=== PATIENT | male | born 1965 | race Caucasian/White ===

== ENCOUNTER 2021-03-15 12:33 | Inpatient (IN) | payer OTHER, SELFPAY ==
[2021-03-15] VITALS (16 sets, daily range): BP systolic 84–125; BP diastolic 67–84; PULSE 54–84; RESP 12–23; TEMP 36.3–36.7; O2SAT 93–100; BMI 17.4
--- NOTE | ~2021-03-15 | CT_ITS ---
EXAMINATION: CT brain wo con DATE: 03/15/2021 13:27 INDICATION: Altered mental status. TECHNIQUE: Computed tomography (CT) of the head was performed without intravenous contrast. The mA wa s adjusted according to patient size. Iterative reconstruction technique was employed. The dose-lengt h product was 681.00 mGy-cm. COMPARISON: None FINDINGS: There are scattered areas of low attenuation in the cerebral white matter. There is no intr acranial hemorrhage, acute infarction, or abnormal intracranial mass lesion. The ventricles are shreyas l in size. The paranasal sinuses are clear. The mastoid air cells are normal. There is a nonaggressiv e mixed lytic and sclerotic lesion in superolateral wall of left orbit, likely benign. IMPRESSION: 1. Mild nonspecific cerebral white matter disease, which likely represents chronic small vessel ische jaquelin disease. Reviewed, dictated and finalized at location B. IMPRESSION: 1. Mild nonspecific cerebral white matter disease, which likely represents chronometer tester janie small vessel ischemic disease.
--- NOTE | ~2021-03-15 | XR_ITS ---
EXAMINATION: XR chest 1V DATE: 03/15/2021 13:33 INDICATION: Hypotension. Recent falls. TECHNIQUE: frontal view of the chest was obtained. COMPARISON: None FINDINGS: The lungs are clear with no focal airspace opacities, pulmonary edema, pleural effusion or pneumothor ax. The cardiomediastinal silhouette is normal. Visualized bones and soft tissues are unremarkable. IMPRESSION: 1. No acute cardiopulmonary disease. Reviewed, dictated and finalized at location A.
--- NOTE | 2021-03-15 12:38 | ECG_ITS ---
Measurements Intervals [place] Rate: 64 P: 51 CA: 186 QRS: -65 QRSD: 91 T: 64 QT: 425 QTc: 441 Interpretive Statements SINUS RHYTHM RIGHT BUNDLE BRANCH BLOCK LEFT POSTERIOR FASCICULAR BLOCK BASELINE ARTIFACT- I, II, III, AVR, AVL, AVF, V1-V6 ABNORMAL ECG Electronically Signed On 03-15-2021 14:43:17 CDT by James Cox D.O.
--- NOTE | 2021-03-15 12:46 | PC.NURSE ---
pt given urinal to attempt u/a.
[2021-03-15 12:52] LABS: Basophils Absolute Auto 0.1 K/mm3 (0.0-0.1); Eosinophils Absolute Auto 0.1 K/mm3 (0-0.3); Eosinophils Percent Auto 1.6 % (0-4.4); Hematocrit 31.8 % (42.0-52.0); Hemoglobin 11.7 g/dL (14.0-18.0); Immature Granulocyte Absolute 0.08 K/mm3 (0.00-0.031); Immature Granulocyte Percent A 1.6 % (0-0.5); Lymphocytes Percent Auto 19.6 % (18.3-44.2); Mean Corpuscular HGB Conc 36.8 g/dl (32-36); Mean Corpuscular Hemoglobin 34.8 pg (26-34); Mean Corpuscular Volume 94.6 fl (80-100); Mean Platelet Volume 8.7 fl (7.4-10.4); Monocytes Absolute Auto 0.7 K/mm3 (0.1-0.6); Monocytes Percent Auto 12.9 % (2.6-8.5); Neutrophils Absolute Auto 3.2 K/mm3 (1.3-6.7); Neutrophils Percent Auto 62.3 % (45.5-73.1); Platelet Count Result 252 k/mm3 (150-375); Red Blood Count 3.36 M/mm3 (4.6-6.20); Red Cell Distribution Width 11.7 % (11.5-14.5); White Blood Count 5.1 K/mm3 (4.5-10.0)
[2021-03-15 13:03] LABS: Alanine Aminotransferase 45 U/L (4-50); Albumin Level 3.6 g/dL (3.5-5.1); Alkaline Phosphatase 114 U/L (38-126); Anion Gap 9 mmol/L (8-16); Aspartate Amino Transferase 104 U/L (17-59); Bilirubin,Total 0.4 mg/dL (0.2-1.3); Blood Urea Nitrogen 26 mg/dL (9-20); Calcium 8.9 mg/dL (8.4-10.2); Carbon Dioxide 26 mmol/L (22-30); Chloride 81 mmol/L (98-107); Estimated CRCL calculation 72 ml/min; Estimated Glomerular Filt Rate > 60; Glucose 95 mg/dL (75-110); Potassium 3.2 mmol/L (3.4-5.0); Sodium 116 mmol/L (137-145)
[2021-03-15 13:17] LABS: Add Urine Microscopic? NO; Appearance Urine Clear (Clear); Bilirubin Urine Negative (Negative); Blood Urine Negative (Negative); Color Urine Yellow (Yellow); Glucose Urine UA Negative (Negative); Ketones Urine Negative (Negative); Leukocyte Esterase Ur Negative LEU/UL (Negative); Nitrate Urine Negative (Negative); Protein Urine Negative (Negative); Specific Grav Ur 1.009 (1.001-1.035); Urobilinogen Urine Negative mg/dL (<2.0)
--- NOTE | 2021-03-15 13:17 | ED.WEAKNESS ---
HPI - Weakness General Chief complaint: Weakness Stated complaint: HYPOTENSION Time Seen by Provider: 03/15/21 13:03 Source: RN notes reviewed History of Present Illness HPI Narrative: Patient presents to emergency department from PCPs office via EMS for orthostatic hypotension. Patient states has been progressively weak over the past 1 months to the point that he is now having to use a cane to walk and brace himself down the moon he states that the only medication he takes is lisinopril with no recent change he denies any alcohol use and states he is a smoker he denies any fevers or chills vision changes chest pain shortness of breath abdominal pain nausea vomiting or any other symptoms Related Data Home Medications Medication Instructions Recorded Confirmed lisinopril-hydrochlorothiazide 1 tablet PO DAILY 03/15/21 03/15/21 Allergies Allergy/AdvReac Type Severity Reaction Status Date / Time ampicillin Allergy Unknown Unknown Verified 03/15/21 13:57 Review of Systems Review of Systems: Narrative: Gen.: Denies fevers or chills Eyes: Denies eye pain or visual change ENT: Denies congestion Respiratory: Denies shortness of breath or cough CV: Denies chest pain or palpitations GI: Denies abdominal pain nausea, emesis or diarrhea Musculoskeletal: Denies back pain or muscle pain Neuro: D see HPI Skin: Denies rash Except as documented, all other systems reviewed and negative [facility] Past Medical History Medical History (Updated 03/15/21 @ 14:44 by Delvis Hanley DO) Hypertension Social History Social History (Updated 03/15/21 @ 13:18 by Delvis Hanley DO) Smoking status: Current every day smoker Gender identity (if verbalized by the patient): Male Exam Narrative: Exam Narrative: APPEARANCE: No acute distress, nontoxic, resting in bed EYES: EOMI HEENT: Normocephalic, atraumatic, OMM RESPIRATORY: No respiratory distress Clear to auscultation bilaterally with no rhonchi wheezing or rales. CARDIOVASCULAR: Regular rate and rhythm without murmurs rubs or gallops. ABDOMINAL: Soft, nontender, nondistended, no rebound or guarding MUSCULOSKELETAl: Moves all extremities. No clubbing, cyanosis or edema. NEURO: Awake and alert x 4. Following commands, speech normal, no focal deficits SKIN:: Warm, dry. No rashes lesions or abrasions PSYCHIATRIC: Normal affect/mood, Course Course Emergency Course: Called and discussed with Dr. Bray presentation work-up agrees with consult at this time recommends patient start on 0.9 normal saline 100 mL an hour with the repeat sodium level at 4 PM : Discussed with NATHANIEL Loza for Dr. Kapoor presentation work-up agrees with admission at this time Discussed with patient and family results of workup and diagnosis. Discussed need for admission. Patient and family understand and agree to current treatment plan Vital Signs Vital signs: Vital Signs Temperature 97.8 F 03/15/21 12:32 Pulse Rate 67 03/15/21 12:32 Respiratory Rate 12 03/15/21 12:32 Pulse Oximetry 93 03/15/21 12:32 Temperature 97.8 F 03/15/21 12:32 Pulse Rate 59 L 03/15/21 15:02 Respiratory Rate 15 03/15/21 15:02 Blood Pressure 102/74 03/15/21 15:02 Pulse Oximetry 98 03/15/21 15:02 MDM - Weakness Lab Data Result diagrams: 03/15/21 12:45 03/15/21 12:45 Labs: Lab Results 03/15/21 03/15/21 03/15/21 Range/Units 12:45 12:45 12:45 WBC 5.1 (4.5-10.0) K/mm3 RBC 3.36 L (4.6-6.20) M/mm3 Hgb 11.7 L (14.0-18.0) g/dL Hct 31.8 L (42.0-52.0) % MCV 94.6 (80-100) fl MCH 34.8 H (26-34) pg MCHC 36.8 H (32-36) g/dl RDW 11.7 (11.5-14.5) % Plt Count 252 (150-375) k/mm3 MPV 8.7 (7.4-10.4) fl Immature Gran % (Auto) 1.6 H (0-0.5) % Neut % (Auto) 62.3 (45.5-73.1) % Lymph % (Auto) 19.6 (18.3-44.2) % Mcpherson % (Auto) 12.9 H (2.6-8.5) % Eos % (Auto) 1.6 (0-4.4) % Baso % (Auto) 2.0 H (0.2-1.2)
[2021-03-15] MEDS: SODIUM CHLORIDE 0.9% IV 1,000 ML 999 ML IV CONT (13:21)
--- NOTE | 2021-03-15 13:21 | PC.NURSE ---
Pt to CT scan via stretcher on tele monitor.
[2021-03-15] MEDS: POTASSIUM CHLORIDE 20 MEQ TABLET PO (14:06)
--- NOTE | 2021-03-15 14:14 | PC.NURSE ---
called dietary and ordered food tray for pt
[2021-03-15 14:46] LABS: Magnesium 2.5 mg/dL (1.6-2.3); Phosphorus 4.2 mg/dL (2.5-4.5)
--- NOTE | 2021-03-15 15:00 | PM.IMHP ---
H&P: HPI History of Present Illness Date/Time: 03/15/21 15:00 Chief Complaint: Weakness. Narrative: This is a 55-year-old male smoker with hypertension who presented to the emergency department earlier today via EMS from his primary care provider's office for further evaluation of weakness. He reports progressive weakness over the past month and has had problems with lightheadedness and dizziness, mainly with going from a sitting to standing position. His balance has also been poor and he has been using a cane to help steady himself with ambulating. More recently he has had several falls and syncopal episodes with numerous abrasions, contusions, and skin tears on his extremities and forehead. He was seen by Dr. Ortiz today and she sent him to the emergency department as he was reportedly orthostatic in the clinic. In the emergency department his blood pressure did drop from 100/84 to 84/68 upon standing and he had reproducible dizziness. He was also found to be profoundly hyponatremic with a sodium level of 116. He has taken hydrochlorothiazide for about a year and has not had any change in dosing. He drinks maybe 4 to 5 beers a week and reports drinking other liquids liquids in a typical amount. No history of thyroid disease or malignancy and he also denies chronic pain and chronic narcotic use. Appetite has been decreased but no nausea, vomiting, or diarrhea. Review of Systems Review of Systems: Narrative: Twelve systems were reviewed with pertinent positives and negatives as per HPI. He has lost 5 pounds unintentionally in the last month or so but goes on to say that he and his brother are both unemployed and they have been living on food stamps and the selection of food and quantities lacking so he believes that may be causing him to lose weight. No fever, chills, or sweats. He denies recent cold and flu symptoms. No focal weakness or paresthesias. Denies diplopia. No chest pain, pleuritic pain, or palpitations. Mild chronic smoker's cough. No significant shortness of breath. No nausea, vomiting, or diarrhea. Denies dysuria and change in urine output. Except as documented, all other systems were reviewed and are negative. [facility] Past Medical History Medical History (Updated 03/15/21 @ 20:18 by Denia Kate PA-C) Hypertension Tobacco dependence Surgical History Surgical History (Updated 03/15/21 @ 20:05 by Denia Kate PA-C) History of excision of testicular mass With benign histology. Family History Family History (Updated 03/15/21 @ 20:06 by Denia Kate PA-C) Father Chronic obstructive pulmonary disease Congestive heart failure Hypertension Mother Abdominal aortic aneurysm rupture Daughter Type 1 diabetes mellitus Social History Social History (Updated 03/15/21 @ 20:08 by Denia Kate PA-C) Social History: Surrogate decision maker: Bere Gisselletipkaty, sister. Code status: Full code. Smoking packs per day: 1 Smoking cigarettes per day: 20.0 Years smoked: 30 Smoking pack-years: 30.00 Smoking status: Current every day smoker Tobacco type: cigarettes Alcohol intake: current Drinks per week: 4 Alcohol use details: 3 to 4 beers per week. Substance use: never Substance use type: does not use Additional living arrangements comments: The patient lives in [place] with his brother. They are both currently unemployed and are living on food stamps. Additional occupation/education comments: Currently unemployed. Gender identity (if verbalized by the patient): Male Spiritual care concerns: No Meds Home Medications and Allergies Home Medications Medication Instructions Recorded Confirmed Type lisinopril-hydrochlorothiazide 1 tablet PO DAILY 03/15/21 03/15/21 History Allergies Allergy/AdvReac Type Severity Reaction Status Date / Time amoxicillin Allergy Rash Verified 03/15/21 15:47 Vital Signs V
--- NOTE | 2021-03-15 15:57 | ADMGEN ---
This patient, Simon Barraza, was admitted to IMU Room 204-01. Patient/family oriented to hospital policies and general routines including ID bracelet, bed and alarms, visiting hours, pain management, procedures, bathroom and other care routines, personal items, smoking policy, room service/diet, and visiting hours. Information on how to activate the Rapid Response Team has been discussed. Patient/Family are encouraged to report perceived risks to care and to ask questions if they do not understand what they are told or what they should do.
[2021-03-15 16:11] LABS: Anion Gap 6 mmol/L (8-16); Blood Urea Nitrogen 24 mg/dL (9-20); Calcium 8.5 mg/dL (8.4-10.2); Carbon Dioxide 27 mmol/L (22-30); Chloride 88 mmol/L (98-107); Estimated CRCL calculation 68 ml/min; Estimated Glomerular Filt Rate > 60; Glucose 91 mg/dL (75-110); Potassium 3.3 mmol/L (3.4-5.0); Sodium 121 mmol/L (137-145)
[2021-03-15] MEDS: SODIUM CHLORIDE 0.9% IV 1,000 ML 100 ML IV CONT (16:33)
--- NOTE | 2021-03-15 17:19 | PM.CNNEP ---
Assessment and Plan Assessment and plan (1) Acute hyponatremia: Code(s): E87.1 - Hypo-osmolality and hyponatremia Status: Acute Assessment and Plan: The patient has low sodium. He did have a mildly low sodium in December so this is not purely an acute issue. There seems to be at least a component of chronicity. He does not seem to have any symptoms of the low sodium. He does have the lightheadedness and weakness which could be a symptom but not enough of an issue to behoove us to use 3% saline. The cause of the low sodium is not exactly clear. He is on hydrochlorothiazide which may be playing a role. He also does not eat very much and is losing weight so could have an element of poor free water excretory capability because of poor solute intake. Hormonal issues such as hypothyroidism and adrenal insufficiency could cause low sodium. The latter could also cause him to lose weight and have orthostatic hypotension. Cancer can cause low sodium as well. He does smoke and has been losing weight. His chest x-ray and head CT do not show any tumor. He probably should get a cancer surveillance evaluation appropriate to his age at some point. ROLLER PICKER lesions can do this but is head CT is negative. Pulmonary lesions can do this as well but his chest x-ray is negative. Dehydration can also cause low sodium especially if the patient is drinking water. At this point he is eating and drinking ad anatoly. He is getting saline for volume resuscitation. His sodium level did correct from 116-121. Will check another sodium level in a few hours and see where this goes. Want to try to corrected by only 6 or so her day and not more than 8 per day. If this is excess water drinking causing the low sodium this is caused by the hydrochlorothiazide, then he might auto correct too quickly. He may need DDAVP. Because the sodium did correct this quickly I am going to change his saline to half-normal saline. (2) Acute hypokalemia: Code(s): E87.6 - Hypokalemia Status: Acute Assessment and Plan: The patient is getting potassium supplements. (3) Weakness: Code(s): R53.1 - Weakness Status: Acute Assessment and Plan: This may be purely be due to the low sodium or could be due to dehydration or something else like adrenal insufficiency or cancer. Evaluation is ongoing (4) Hypertension: Code(s): I10 - Essential (primary) hypertension Status: Acute Assessment and Plan: His blood pressure is doing well. He is off his antihypertensives for now. History of Present Illness Reason for Consult Consult date: 03/15/21 Chief Complaint Chief complaint: hyponatremia,weakness History of Present Illness Narrative: Simon is a very pleasant 55-year-old gentleman who has a history of hypertension. He says that he has had blood pressure problems for a few years. One year ago he was placed on lisinopril-HCT and has been on that ever since. His blood pressures have been pretty well controlled. Done and it showed that his sodium level was mildly low. The patient says for the last couple of weeks has been generally weak and at times dizzy. He says that he fell at least once. It was mostly because he was dizzy and lightheaded and lost his balance. He hit his right forehead at 1 point during 1 of these falls. Because of this progressive weakness, he decided to come to the emergency room. In the emergency room he was evaluated and found to have a very low sodium. He also had low blood pressure. He was given some IV fluids. Repeat sodium was performed after some IV fluids that his sodium improved from 116-121. This was over a period of about 3 hours. Currently the patient feels okay. He is lying in bed and ate some lunch. He says that he has lost a lot of weight over the last year. He thinks he has 2 thin and has been trying to gain weight. He does have a problem in that he is unemployed and lives with
[2021-03-15] MEDS: DEXTROSE 5%/0.45% SOD CHL 1,000 ML 100 ML IV CONT (18:03)
[2021-03-15 18:22] LABS: Sodium Urine Random 20 meq/L
[2021-03-15 18:25] LABS: Creatinine Urine 24.4 mg/dL
[2021-03-15 19:08] LABS: Sodium 121 mmol/L (137-145)
[2021-03-15] MEDS: THIAMINE HCL 200 MG/2 ML VIAL 100 MG IV PUSH (23:54)
[2021-03-16] VITALS (21 sets, daily range): BP systolic 90–127; BP diastolic 55–88; PULSE 52–90; RESP 12–19; TEMP 36.2–37.1; O2SAT 95–100; BMI 18.6
[2021-03-16 00:50] LABS: Sodium 122 mmol/L (137-145)
[2021-03-16] MEDS: DEXTROSE 5%/0.45% SOD CHL 1,000 ML 100 ML IV CONT ×2 (03:32→16:23)
[2021-03-16 05:24] LABS: Basophils Absolute Auto 0.1 K/mm3 (0.0-0.1); Basophils Percent Auto 1.4 % (0.2-1.2); Eosinophils Percent Auto 0.9 % (0-4.4); Hematocrit 32.6 % (42.0-52.0); Hemoglobin 11.8 g/dL (14.0-18.0); Immature Granulocyte Absolute 0.07 K/mm3 (0.00-0.031); Immature Granulocyte Percent A 1.7 % (0-0.5); Lymphocytes Absolute Auto 0.85 K/mm3 (0.9-3.2); Lymphocytes Percent Auto 20.1 % (18.3-44.2); Mean Corpuscular HGB Conc 36.2 g/dl (32-36); Mean Corpuscular Hemoglobin 35.3 pg (26-34); Mean Corpuscular Volume 97.6 fl (80-100); Mean Platelet Volume 9.1 fl (7.4-10.4); Monocytes Absolute Auto 0.6 K/mm3 (0.1-0.6); Monocytes Percent Auto 14.5 % (2.6-8.5); Neutrophils Absolute Auto 2.6 K/mm3 (1.3-6.7); Neutrophils Percent Auto 61.4 % (45.5-73.1); Platelet Count Result 290 k/mm3 (150-375); Red Blood Count 3.34 M/mm3 (4.6-6.20); Red Cell Distribution Width 11.9 % (11.5-14.5); White Blood Count 4.2 K/mm3 (4.5-10.0)
[2021-03-16 05:26] LABS: Alanine Aminotransferase 40 U/L (4-50); Albumin Level 3.2 g/dL (3.5-5.1); Alkaline Phosphatase 96 U/L (38-126); Anion Gap 3 mmol/L (8-16); Aspartate Amino Transferase 78 U/L (17-59); Bilirubin,Total 0.4 mg/dL (0.2-1.3); Blood Urea Nitrogen 17 mg/dL (9-20); Calcium 8.1 mg/dL (8.4-10.2); Carbon Dioxide 29 mmol/L (22-30); Chloride 91 mmol/L (98-107); Estimated CRCL calculation 86 ml/min; Estimated Glomerular Filt Rate > 60; Glucose 119 mg/dL (75-110); Magnesium 2.2 mg/dL (1.6-2.3); Potassium 3.3 mmol/L (3.4-5.0); Sodium 123 mmol/L (137-145)
--- NOTE | 2021-03-16 09:47 | PM.IMPN ---
Progress Note: A&P Assessment and Plan (1) Hypokalemia: Code(s): E87.6 - Hypokalemia Status: Acute (2) Generalized weakness: Code(s): R53.1 - Weakness Status: Acute (3) Normocytic anemia: Code(s): D64.9 - Anemia, unspecified Status: Acute (4) Orthostatic hypotension: Code(s): I95.1 - Orthostatic hypotension Status: Acute (5) Acute hyponatremia: Code(s): E87.1 - Hypo-osmolality and hyponatremia Status: Acute (6) Hypertension: Code(s): I10 - Essential (primary) hypertension Status: Acute Additional Plan This is a 55-year-old male smoker with hypertension who presented to the emergency department earlier today via EMS from his primary care provider's office for further evaluation of weakness. He reports progressive weakness over the past month and has had problems with lightheadedness and dizziness, mainly with going from a sitting to standing position. His balance has also been poor and he has been using a cane to help steady himself with ambulating. More recently he has had several falls and syncopal episodes with numerous abrasions, contusions, and skin tears on his extremities and forehead. He was seen by Dr. Ortiz and she sent him to the emergency department as he was reportedly orthostatic in the clinic. In the emergency department his blood pressure did drop from 100/84 to 84/68 upon standing and he had reproducible dizziness. He was also found to be profoundly hyponatremic with a sodium level of 116. He has taken hydrochlorothiazide for about a year and has not had any change in dosing. He drinks maybe 4 to 5 beers a week and reports drinking other liquids liquids in a typical amount. No history of thyroid disease or malignancy and he also denies chronic pain and chronic narcotic use. Appetite has been decreased but no nausea, vomiting, or diarrhea. # Severe hyponatremia: he does have hx of hyponatremia in the past with Na level at 130 noted in 2019. admission Na 116. placed on ivf. slowly improving. no hx of hypothyroidism or adrenal insufficiency. orthostasis positive suggestive of hypovolemic hyponatremia. placed on ivf. na level slowly improving. TSH normal. cortisol appropriate. FeNa 0.6% suggesting prerenal. Dr. Bray nephrology consulted. Appreciate his input. stop HCTZ. # Orthostatic hypotension: bp meds on hold. iv hydration. adrenal insuffi ruled out. thyroid function normal. likely from hypovolemia # Hypokalemia: replace K # Generalised weakness: likely from hyponatremia # Hypertension: Blood pressures were reviewed and he has been having some orthostasis thus will hold his antihypertensives. # Tobacco abuse: The patient continues to smoke cigarettes and is not entirely motivated at this time but we did discuss the importance of smoking cessation. Nicotine patch is available for him if needed. # Alcohol abuse: # DVT proph: SCDs Subjective Date/time seen: 03/16/21 09:47 feeling a lot better, no abdominal pain, nausea, vomtign. no dizzines but has not gotten up yet. no fever, chills. Review of Systems Review of Systems: Narrative: - CONSTITUTIONAL: Denies weight loss, fever and chills. - HEENT: Denies changes in vision and hearing - RESPIRATORY: Denies SOB and cough. - CV: Denies palpitations and CP. - GI: Denies abdominal pain, nausea, vomiting and diarrhea. - : Denies dysuria and urinary frequency. - MSK: Denies myalgia and joint pain. - SKIN: Denies rash and pruritus. - NEUROLOGICAL: Denies headache, reports syncope/near syncope - PSYCHIATRIC: Denies recent changes in mood. Denies anxiety and depression. All systems reviewed & are unremarkable except as noted in HPI and below Constitutional: Constitutional: Reports fatigue and Reports weakness Neurologic: Reports weakness Endocrine: Endocrine: Reports fatigue Exam Narrative: Exam Narrative: General: Thin, chronically ill-appearing ma
--- NOTE | 2021-03-16 10:24 | PM.PNNEP ---
Progress Note: A&P Assessment and Plan (1) Acute hyponatremia: Code(s): E87.1 - Hypo-osmolality and hyponatremia Status: Acute Assessment and Plan: The patient has low sodium. There is a chronic component but definitely now an acute component. Serum and urine osmolality are pending. TSH and cortisol are okay. S PE is pending most likely the low sodium is due to hydrochlorothiazide and possibly dehydration. He was getting normal saline but the correct [place] of the sodium was a little bit too fast so he was switched to half-normal saline and the correction is preceding well. He was been admitted yesterday at around noon so will check a sodium at noon to get the 24hour measure. Trying to correct the serum sodium by 8 or less per day because he was dehydrated and on hydrochlorothiazide and these are both improving I am not doing a fluid restriction less the Sodium correct too quickly. (2) Acute hypokalemia: Code(s): E87.6 - Hypokalemia Status: Acute Assessment and Plan: The patient is getting potassium supplements. He got a dose of potassium chloride today. (3) Weakness: Code(s): R53.1 - Weakness Status: Acute Assessment and Plan: Improving (4) Hypertension: Code(s): I10 - Essential (primary) hypertension Status: Acute Assessment and Plan: His blood pressure is doing well. He is off his antihypertensives for now. Subjective Date/time seen: 03/16/21 10:25 Interval history: Patient is feeling better. He got up to the bathroom and walked just about on his own and is not dizzy or lightheaded like he was before. Eating okay. Review of Systems Cardiovascular: Cardiovascular: Reports no additional cardiovascular complaints Respiratory: Respiratory: Reports no additional respiratory complaints Gastrointestinal: Gastrointestinal: Reports no additional gastrointestinal complaints Genitourinary: Genitourinary: Reports no additional male genitourinary complaints Exam Narrative: Exam Narrative: WDWN in NAD skin no rash head ncat lungs clear cor reg no rub abd BS+ nontender and soft ext no edema. Objective Data Vital Signs Vital Signs: Vital Signs - 24 hr 03/15/21 12:32 03/15/21 12:40 03/15/21 13:08 Temperature 36.6 C Pulse Rate 67 64 62 Pulse Rate [Bilateral Pedal (Dorsalis Pedis) Palpation] Respiratory Rate 12 Blood Pressure 96/67 L Pulse Oximetry 93 03/15/21 13:09 03/15/21 13:11 03/15/21 13:24 Temperature Pulse Rate 70 84 64 Pulse Rate [Bilateral Pedal (Dorsalis Pedis) Palpation] Respiratory Rate 15 Blood Pressure 100/84 84/68 L 100/84 Pulse Oximetry 98 03/15/21 14:08 03/15/21 14:58 03/15/21 15:02 Temperature Pulse Rate 79 59 L 59 L Pulse Rate [Bilateral Pedal (Dorsalis Pedis) Palpation] Respiratory Rate 23 H 15 15 Blood Pressure 110/82 102/74 102/74 Pulse Oximetry 94 98 98 03/15/21 15:09 03/15/21 15:50 03/15/21 16:00 Temperature 36.3 C L Pulse Rate 65 60 73 Pulse Rate [Bilateral Pedal (Dorsalis Pedis) Palpation] Respiratory Rate 14 18 Blood Pressure 103/73 125/71 Pulse Oximetry 99 100 03/15/21 18:00 03/15/21 20:00 03/15/21 22:00 Temperature 36.6 C Pulse Rate 54 L 57 L 58 L Pulse Rate [Bilateral Pedal (Dorsalis Pedis) Palpation] Respiratory Rate 17 Blood Pressure 90/68 L Pulse Oximetry 97 03/15/21 23:52 03/16/21 00:00 03/16/21 02:00 Temperature 36.7 C Pulse Rate 56 L 52 L 52 L Pulse Rate [Bilateral Pedal (Dorsalis Pedis) Palpation] 52 L Respiratory Rate 17 17 Blood Pressure 119/80 119/80 Pulse Oximetry 99 99 03/16/21 03:40 03/16/21 04:00 03/16/21 05:14 Temperature 36.9 C Pulse Rate 78 76 88 Pulse Rate [Bilateral Pedal (Dorsalis Pedis) Palpation] 76 Respiratory Rate 19 19 Blood Pressure 109/70 109/70 Pulse Oximetry 100 100 03/16/21 08:00 03/16/21 09:03 03/16/21 10:00 Temperature 36.2 C
[2021-03-16] MEDS: POTASSIUM CHLORIDE 20 MEQ TABLET 40 MEQ PO (11:16)
[2021-03-16 12:05] LABS: Sodium 121 mmol/L (137-145)
[2021-03-16 17:52] LABS: Sodium 119 mmol/L (137-145)
[2021-03-16] MEDS: SODIUM CHLORIDE 0.9% IV 1,000 ML 75 ML IV CONT (18:29)
[2021-03-16] MEDS: FUROSEMIDE 20 MG TABLET PO (20:17)
[2021-03-16] MEDS: CALCIUM CARBONATE (TUMS) 500 MG (200 MG ELEMENTAL) PO (20:24)
[2021-03-16 21:32] LABS: Sodium 119 mmol/L (137-145)
[2021-03-17] VITALS (17 sets, daily range): BP systolic 98–125; BP diastolic 60–86; PULSE 60–106; RESP 12–18; TEMP 36.8–37.1; O2SAT 96–100
[2021-03-17 05:04] LABS: Basophils Absolute Auto 0.1 K/mm3 (0.0-0.1); Basophils Percent Auto 1.4 % (0.2-1.2); Eosinophils Percent Auto 0.8 % (0-4.4); Hematocrit 27.1 % (42.0-52.0); Hemoglobin 9.7 g/dL (14.0-18.0); Immature Granulocyte Absolute 0.04 K/mm3 (0.00-0.031); Immature Granulocyte Percent A 0.8 % (0-0.5); Lymphocytes Absolute Auto 1.07 K/mm3 (0.9-3.2); Lymphocytes Percent Auto 22.2 % (18.3-44.2); Mean Corpuscular HGB Conc 35.8 g/dl (32-36); Mean Corpuscular Hemoglobin 35.1 pg (26-34); Mean Corpuscular Volume 98.2 fl (80-100); Monocytes Absolute Auto 0.7 K/mm3 (0.1-0.6); Monocytes Percent Auto 13.5 % (2.6-8.5); Neutrophils Percent Auto 61.3 % (45.5-73.1); Platelet Count Result 238 k/mm3 (150-375); Red Blood Count 2.76 M/mm3 (4.6-6.20); Red Cell Distribution Width 11.9 % (11.5-14.5); White Blood Count 4.8 K/mm3 (4.5-10.0)
[2021-03-17 05:27] LABS: Potassium 3.1 mmol/L (3.4-5.0)
[2021-03-17 05:31] LABS: Albumin Level 2.6 g/dL (3.5-5.1); Anion Gap 1 mmol/L (8-16); Blood Urea Nitrogen 10 mg/dL (9-20); Calcium 7.8 mg/dL (8.4-10.2); Carbon Dioxide 28 mmol/L (22-30); Chloride 92 mmol/L (98-107); Estimated CRCL calculation 124 ml/min; Estimated Glomerular Filt Rate > 60; Glucose 92 mg/dL (75-110); Phosphorus 1.9 mg/dL (2.5-4.5); Sodium 121 mmol/L (137-145)
[2021-03-17] MEDS: FUROSEMIDE 20 MG TABLET PO ×3 (06:08→21:50)
[2021-03-17] MEDS: POTASSIUM CHLORIDE 20 MEQ TABLET 40 MEQ PO (07:51)
[2021-03-17] MEDS: SODIUM CHLORIDE 0.9% IV 1,000 ML 75 ML IV CONT ×2 (07:51→21:35)
[2021-03-17] MEDS: NICOTINE (*PBKC) 21 MG PATCH 1 PATCH TRANSDERM (10:36)
--- NOTE | 2021-03-17 11:01 | PM.PNNEP ---
Progress Note: A&P Assessment and Plan (1) Acute hyponatremia: Code(s): E87.1 - Hypo-osmolality and hyponatremia Status: Acute Assessment and Plan: The patient has low sodium. There is a chronic component but definitely now an acute component. Serum and urine osmolality are pending. TSH and cortisol are okay. S PE is pending most likely the low sodium is due to hydrochlorothiazide and possibly dehydration. the patient's sodium dropped yesterday and so he probably does have a component of SIADH. Will repeat serum and urine osmolality today because his volume status is improved and he is off the hydrochlorothiazide. Since the sodium dropped I put him on a fluid restriction. He has been changed to saline and he is getting furosemide to help improve the sodium. Will check another sodium level at 2:00 p.m. and will have nursing call that result and will make adjustments accordingly. Discussed with Dr. Abraham (2) Acute hypokalemia: Code(s): E87.6 - Hypokalemia Status: Acute Assessment and Plan: The patient is getting potassium supplements. He got a dose of potassium chloride today again. His potassium level isn't really changing that much so it is not coming into play as far is changes in serum osmolality go. (3) Weakness: Code(s): R53.1 - Weakness Status: Acute Assessment and Plan: Improving (4) Hypertension: Code(s): I10 - Essential (primary) hypertension Status: Acute Assessment and Plan: His blood pressure is doing well. He is off his antihypertensives for now. Subjective Date/time seen: 03/17/21 11:01 Interval history: Patient is feeling better. able to stand up without dizziness. Eating okay. Review of Systems Cardiovascular: Cardiovascular: Reports no additional cardiovascular complaints Respiratory: Respiratory: Reports no additional respiratory complaints Gastrointestinal: Gastrointestinal: Reports no additional gastrointestinal complaints Genitourinary: Genitourinary: Reports no additional male genitourinary complaints Exam Narrative: Exam Narrative: WDWN in NAD skin no rash head ncat lungs clear Bilaterally cor reg no rub abd BS+ nontender and soft ext no edema or cyanosis. Objective Data Vital Signs Vital Signs: Vital Signs - 24 hr 03/16/21 11:51 03/16/21 12:00 03/16/21 13:57 Temperature 36.7 C Pulse Rate 65 82 Pulse Rate [Bilateral Pedal (Dorsalis Pedis) Palpation] 68 Respiratory Rate 12 Blood Pressure 110/79 Pulse Oximetry 95 03/16/21 16:00 03/16/21 18:00 03/16/21 20:00 Temperature 37.1 C 36.8 C Pulse Rate 75 80 85 Pulse Rate [Bilateral Pedal (Dorsalis Pedis) Palpation] 74 74 Respiratory Rate 14 16 Blood Pressure 90/63 L 116/72 Pulse Oximetry 98 98 03/16/21 20:32 03/16/21 20:33 03/16/21 22:00 Temperature Pulse Rate 71 Pulse Rate [Bilateral Pedal (Dorsalis Pedis) Palpation] Respiratory Rate Blood Pressure 113/71 93/59 L Pulse Oximetry 03/16/21 23:32 03/16/21 23:34 03/16/21 23:59 Temperature 36.6 C Pulse Rate 73 Pulse Rate [Bilateral Pedal (Dorsalis Pedis) Palpation] 78 Respiratory Rate 18 Blood Pressure 100/55 L Pulse Oximetry 98 98 03/17/21 00:00 03/17/21 03:21 03/17/21 03:25 Temperature Pulse Rate 94 Pulse Rate [Bilateral Pedal (Dorsalis Pedis) Palpation] 64 Respiratory Rate Blood Pressure Pulse Oximetry 98 03/17/21 04:00 03/17/21 07:55 03/17/21 08:00 Temperature 36.9 C 36.8 C Pulse Rate 66 96 Pulse Rate [Bilateral Pedal (Dorsalis Pedis) Palpation] 106 H Respiratory Rate 18 12 Blood Pressure 98/74 L 100/60 Pulse Oximetry 98 97 03/17/21 08:27 03/17/21 08:28 03/17/21 09:30 Temperature Pulse Rate Pulse Rate [Bilateral Pedal (Dorsalis Pedis) Palpation] Respiratory Rate Blood Pressure 113/72 125/86 Pulse Oximetry 96 03/17/21 09:58 T
[2021-03-17 14:10] LABS: Sodium 123 mmol/L (137-145)
[2021-03-17] MEDS: CALCIUM CARBONATE (TUMS) 500 MG (200 MG ELEMENTAL) PO ×2 (14:22→21:50)
--- NOTE | 2021-03-17 16:29 | PM.IMPN ---
Progress Note: A&P Assessment and Plan (1) Orthostatic hypotension: Code(s): I95.1 - Orthostatic hypotension Status: Acute (2) Normocytic anemia: Code(s): D64.9 - Anemia, unspecified Status: Acute (3) Generalized weakness: Code(s): R53.1 - Weakness Status: Acute (4) Hypokalemia: Code(s): E87.6 - Hypokalemia Status: Acute (5) Hyponatremia: Code(s): E87.1 - Hypo-osmolality and hyponatremia Status: Acute (6) Tobacco dependence: Code(s): F17.200 - Nicotine dependence, unspecified, uncomplicated Status: Acute (7) Acute hyponatremia: Code(s): E87.1 - Hypo-osmolality and hyponatremia Status: Acute (8) Acute hypokalemia: Code(s): E87.6 - Hypokalemia Status: Acute (9) Weakness: Code(s): R53.1 - Weakness Status: Acute (10) Hypertension: Code(s): I10 - Essential (primary) hypertension Status: Acute Additional Plan This is a 55-year-old male smoker with hypertension who presented to the emergency department earlier today via EMS from his primary care provider's office for further evaluation of weakness. He reports progressive weakness over the past month and has had problems with lightheadedness and dizziness, mainly with going from a sitting to standing position. His balance has also been poor and he has been using a cane to help steady himself with ambulating. More recently he has had several falls and syncopal episodes with numerous abrasions, contusions, and skin tears on his extremities and forehead. He was seen by Dr. Ortiz and she sent him to the emergency department as he was reportedly orthostatic in the clinic. In the emergency department his blood pressure did drop from 100/84 to 84/68 upon standing and he had reproducible dizziness. He was also found to be profoundly hyponatremic with a sodium level of 116. He has taken hydrochlorothiazide for about a year and has not had any change in dosing. He drinks maybe 4 to 5 beers a week and reports drinking other liquids liquids in a typical amount. No history of thyroid disease or malignancy and he also denies chronic pain and chronic narcotic use. Appetite has been decreased but no nausea, vomiting, or diarrhea. # Severe hyponatremia: he does have hx of hyponatremia in the past with Na level at 130 noted in 2019. admission Na 116. placed on ivf. slowly improving. no hx of hypothyroidism or adrenal insufficiency. orthostasis positive suggestive of hypovolemic hyponatremia. placed on ivf. na level slowly improving. TSH normal. cortisol appropriate. FeNa 0.6% suggesting prerenal. Dr. Bray nephrology consulted. Appreciate his input. stop HCTZ. na level still low. adjusting fluids and getting lasix under direction of nephrology # Orthostatic hypotension: bp meds on hold. iv hydration. adrenal insuffi ruled out. thyroid function normal. likely from hypovolemia # Hypokalemia: replace K # Generalised weakness: likely from hyponatremia # Hypertension: Blood pressures were reviewed and he has been having some orthostasis thus will hold his antihypertensives. # Tobacco abuse: The patient continues to smoke cigarettes and is not entirely motivated at this time but we did discuss the importance of smoking cessation. Nicotine patch ordered. # Alcohol abuse: # DVT proph: SCDs Subjective Date/time seen: 03/17/21 16:29 no overnight events, he got a dose of lasix as his na level dropped, switched to normal saline. no fever, chills, sob, cehst pain. Review of Systems Review of Systems: Narrative: - CONSTITUTIONAL: Denies weight loss, fever and chills. - HEENT: Denies changes in vision and hearing - RESPIRATORY: Denies SOB and cough. - CV: Denies palpitations and CP. - GI: Denies abdominal pain, nausea, vomiting and diarrhea. - : Denies dysuria and urinary frequency. - MSK: Denies myalgia and joint pain. - SKIN: Denies rash and pr
[2021-03-17 21:13] LABS: Sodium 125 mmol/L (137-145)
[2021-03-17] MEDS: ACETAMINOPHEN 325 MG TABLET 650 MG PO (23:41)
[2021-03-18] VITALS (13 sets, daily range): BP systolic 106–127; BP diastolic 75–89; PULSE 54–81; RESP 12–21; TEMP 36.1–36.9; O2SAT 97–100
[2021-03-18] MEDS: ACETAMINOPHEN 325 MG TABLET 650 MG PO ×3 (04:09→19:35)
[2021-03-18 04:53] LABS: Basophils Absolute Auto 0.1 K/mm3 (0.0-0.1); Basophils Percent Auto 1.5 % (0.2-1.2); Eosinophils Absolute Auto 0.1 K/mm3 (0-0.3); Eosinophils Percent Auto 0.8 % (0-4.4); Hematocrit 26.9 % (42.0-52.0); Hemoglobin 9.6 g/dL (14.0-18.0); Immature Granulocyte Absolute 0.05 K/mm3 (0.00-0.031); Immature Granulocyte Percent A 0.8 % (0-0.5); Lymphocytes Absolute Auto 1.56 K/mm3 (0.9-3.2); Lymphocytes Percent Auto 25.5 % (18.3-44.2); Mean Corpuscular HGB Conc 35.7 g/dl (32-36); Mean Corpuscular Hemoglobin 34.5 pg (26-34); Mean Corpuscular Volume 96.8 fl (80-100); Mean Platelet Volume 8.8 fl (7.4-10.4); Monocytes Absolute Auto 0.8 K/mm3 (0.1-0.6); Monocytes Percent Auto 13.1 % (2.6-8.5); Neutrophils Absolute Auto 3.6 K/mm3 (1.3-6.7); Neutrophils Percent Auto 58.3 % (45.5-73.1); Platelet Count Result 280 k/mm3 (150-375); Red Blood Count 2.78 M/mm3 (4.6-6.20); Red Cell Distribution Width 11.8 % (11.5-14.5); White Blood Count 6.1 K/mm3 (4.5-10.0)
[2021-03-18 05:06] LABS: Albumin Level 2.8 g/dL (3.5-5.1); Anion Gap 1 mmol/L (8-16); Blood Urea Nitrogen 8 mg/dL (9-20); Carbon Dioxide 30 mmol/L (22-30); Chloride 94 mmol/L (98-107); Estimated CRCL calculation 109 ml/min; Estimated Glomerular Filt Rate > 60; Glucose 95 mg/dL (75-110); Phosphorus 2.1 mg/dL (2.5-4.5); Potassium 3.7 mmol/L (3.4-5.0); Sodium 125 mmol/L (137-145)
[2021-03-18] MEDS: FUROSEMIDE 20 MG TABLET PO ×3 (05:06→21:13)
[2021-03-18] MEDS: NICOTINE (*PBKC) 21 MG PATCH 1 PATCH TRANSDERM (07:50)
[2021-03-18] MEDS: CALCIUM CARBONATE (TUMS) 500 MG (200 MG ELEMENTAL) PO ×2 (07:51→19:35)
[2021-03-18] MEDS: SODIUM CHLORIDE 0.9% IV 1,000 ML 75 ML IV CONT (07:52)
--- NOTE | 2021-03-18 09:54 | PM.PNNEP ---
Progress Note: A&P Assessment and Plan (1) Acute hyponatremia: Code(s): E87.1 - Hypo-osmolality and hyponatremia Status: Acute Assessment and Plan: The patient has low sodium. There is a chronic component but definitely now an acute component. Serum and urine osmolality are pending. TSH and cortisol are okay. S PE is pending most likely the low sodium is due to hydrochlorothiazide and possibly dehydration. He may have a component of SIADH. Hold off on repeating the serum and urine osmolality because the 1st ones are pending and also because he was on furosemide. Patient's sodium is stable but low on his current regimen. Will change to salt tablets plus oral Lasix. He continues to be on a fluid restriction. Will check a sodium this afternoon (2) Acute hypokalemia: Code(s): E87.6 - Hypokalemia Status: Acute Assessment and Plan: Potassium was good today. (3) Weakness: Code(s): R53.1 - Weakness Status: Acute Assessment and Plan: Improving (4) Hypertension: Code(s): I10 - Essential (primary) hypertension Status: Acute Assessment and Plan: His blood pressure is doing well. He is off his antihypertensives for now. Subjective Date/time seen: 03/18/21 09:54 Interval history: Patient is feeling better. No dizziness with ambulation. Eating okay. Review of Systems Cardiovascular: Cardiovascular: Reports no additional cardiovascular complaints Respiratory: Respiratory: Reports no additional respiratory complaints Gastrointestinal: Gastrointestinal: Reports no additional gastrointestinal complaints Genitourinary: Genitourinary: Reports no additional male genitourinary complaints Exam Narrative: Exam Narrative: WDWN in NAD skin no rash or subcu nodules head ncat lungs clear Bilaterally cor reg no rub or gallop abd BS+ nontender and soft ext no edema or cyanosis. Objective Data Vital Signs Vital Signs: Vital Signs - 24 hr 03/17/21 09:58 03/17/21 12:00 03/17/21 14:05 Temperature 36.9 C Pulse Rate 60 76 81 Pulse Rate [Bilateral Pedal (Dorsalis Pedis) Palpation] 81 Respiratory Rate 12 Blood Pressure 117/73 Pulse Oximetry 100 03/17/21 16:00 03/17/21 17:55 03/17/21 19:58 Temperature 36.9 C 37.1 C Pulse Rate 74 81 70 Pulse Rate [Bilateral Pedal (Dorsalis Pedis) Palpation] 75 Respiratory Rate 12 12 Blood Pressure 118/80 114/68 Pulse Oximetry 99 98 03/17/21 20:00 03/17/21 22:00 03/18/21 00:00 Temperature 36.1 C L Pulse Rate 86 78 74 Pulse Rate [Bilateral Pedal (Dorsalis Pedis) Palpation] Respiratory Rate 16 Blood Pressure 98/75 L 126/88 Pulse Oximetry 99 03/18/21 02:00 03/18/21 04:00 03/18/21 06:00 Temperature 36.9 C Pulse Rate 66 66 58 L Pulse Rate [Bilateral Pedal (Dorsalis Pedis) Palpation] Respiratory Rate 12 Blood Pressure 123/81 Pulse Oximetry 99 03/18/21 08:00 Temperature 36.9 C Pulse Rate 67 Pulse Rate [Bilateral Pedal (Dorsalis Pedis) Palpation] 67 Respiratory Rate 12 Blood Pressure 127/89 Pulse Oximetry 99 Intake/Output Intake/Output: Intake & Output 03/15/21 03/16/21 03/17/21 03/18/21 23:59 23:59 23:59 23:59 Intake Total 1466.3 3190 2870 1630 Output Total 342 549 7429 500 Balance 691.3 2290 1770 1130 Meds/Results Medications: Active Medications Generic Name Dose Route Start Last Admin Trade Name Anatoliyq PRN Reason Stop Dose Admin Acetaminophen 650 mg 03/17/21 22:23 03/18/21 04:09 Acetaminophen 325 Mg Tablet PO 650 mg Q4H PRN Administration Mild Pain (1-3) or Fever Calcium Carbonate 200 mg 03/16/21 13:37 03/18/21 07:51 Calcium Carbonate (Tums) 500 Mg (200 Mg Elemental) PO 200 mg Q6H PRN Administration Indigestion Furosemide 20 mg 03/16/21 19:00 03/18/21 05:06 Furosemide 20 Mg Tablet PO 20 mg Q8HR NESSA Administration Nicotine 1 patch 03/17/21 09:25 03/18/21 07:50 Ni
[2021-03-18] MEDS: SODIUM CHLORIDE 1 GM TABLET PO ×2 (11:19→16:03)
--- NOTE | 2021-03-18 12:57 | PM.IMPN ---
Progress Note: A&P Additional Plan This is a 55-year-old male smoker with hypertension who presented to the emergency department earlier today via EMS from his primary care provider's office for further evaluation of weakness. He reports progressive weakness over the past month and has had problems with lightheadedness and dizziness, mainly with going from a sitting to standing position. His balance has also been poor and he has been using a cane to help steady himself with ambulating. More recently he has had several falls and syncopal episodes with numerous abrasions, contusions, and skin tears on his extremities and forehead. He was seen by Dr. Ortiz and she sent him to the emergency department as he was reportedly orthostatic in the clinic. In the emergency department his blood pressure did drop from 100/84 to 84/68 upon standing and he had reproducible dizziness. He was also found to be profoundly hyponatremic with a sodium level of 116. He has taken hydrochlorothiazide for about a year and has not had any change in dosing. He drinks maybe 4 to 5 beers a week and reports drinking other liquids liquids in a typical amount. No history of thyroid disease or malignancy and he also denies chronic pain and chronic narcotic use. Appetite has been decreased but no nausea, vomiting, or diarrhea. # Severe hyponatremia: he does have hx of hyponatremia in the past with Na level at 130 noted in 2019. admission Na 116. placed on ivf. slowly improving. no hx of hypothyroidism or adrenal insufficiency. orthostasis positive suggestive of hypovolemic hyponatremia. placed on ivf. na level slowly improving. TSH normal. cortisol appropriate. FeNa 0.6% suggesting prerenal. Dr. Bray nephrology consulted. Appreciate his input. stop HCTZ. na level still low. adjusting fluids and getting lasix under direction of nephrology na level has improved. will continue with further direction from nephrology. # Orthostatic hypotension: bp meds on hold. iv hydration. adrenal insuffi ruled out. thyroid function normal. likely from hypovolemia # Hypokalemia: replace K # Generalised weakness: likely from hyponatremia # Hypertension: Blood pressures were reviewed and he has been having some orthostasis thus will hold his antihypertensives. # Tobacco abuse: The patient continues to smoke cigarettes and is not entirely motivated at this time but we did discuss the importance of smoking cessation. Nicotine patch ordered. # Alcohol abuse # Anemia: no signs of blood loss. more anemic this time compared to last years lab. could be dilutional for the drop. will check iron profile, fobt and vitmain b12, folate level. reticulocyte count. peripheral smear [facility]. [facility] labs in am. # DVT proph: SCDs Subjective Date/time seen: 03/18/21 12:57 feeling better. no new compalints. ambulating well.n o nausea, vomiting, sob, chest pain. Review of Systems Review of Systems: Narrative: - CONSTITUTIONAL: Denies weight loss, fever and chills. - HEENT: Denies changes in vision and hearing - RESPIRATORY: Denies SOB and cough. - CV: Denies palpitations and CP. - GI: Denies abdominal pain, nausea, vomiting and diarrhea. - : Denies dysuria and urinary frequency. - MSK: Denies myalgia and joint pain. - SKIN: Denies rash and pruritus. - NEUROLOGICAL: Denies headache and syncope. - PSYCHIATRIC: Denies recent changes in mood. Denies anxiety and depression. All systems reviewed & are unremarkable except as noted in HPI and below Constitutional: Constitutional: Reports fatigue and Reports weakness Neurologic: Reports weakness Endocrine: Endocrine: Reports fatigue Exam Narrative: Exam Narrative: General: Thin, comfortable, not in no acute distress HEENT: Healing abrasion on the right forehead. Pupils reactive. Extraocular motions intact. Sclerae anicteric. Conjunctiva mildly injected. Oral mucosa is moist. Oropharynx clear. Neck: Supple. No JVD. Re
[2021-03-18 13:52] LABS: Immature Reticulocyte Fraction 6.4 % (3.0-15.9); Reticulocyte Hemoglobin Conten 35.7 pg (28.2-35.7); Reticulocytes Absolute 0.04 B/L (32.2-175.7)
[2021-03-18 14:31] LABS: Lactate Dehydrogenase 436 U/L (313-618)
[2021-03-18 15:28] LABS: Folic Acid 8.5 ng/mL (2.76->20)
--- NOTE | 2021-03-18 16:45 | PC.NURSE ---
Patient transferred to 257 via bed with medical status. Report given to Ajit LINDSAY, transferred at 1640
[2021-03-18 16:51] LABS: Iron 44 ug/dL (49-181)
[2021-03-18 17:01] LABS: Percent Iron Saturation 23 % (20-50)
[2021-03-18 17:37] LABS: Sodium 129 mmol/L (137-145)
[2021-03-18 21:25] LABS: IFOB Positive Control Positive; Immunochemical Fecal Occult Bl Negative (N)
[2021-03-19 02:37] LABS: Osmolality, Urine 158 mOsm/kg (50-1200)
[2021-03-19 05:30] LABS: Basophils Absolute Auto 0.1 K/mm3 (0.0-0.1); Basophils Percent Auto 1.9 % (0.2-1.2); Eosinophils Absolute Auto 0.1 K/mm3 (0-0.3); Eosinophils Percent Auto 1.7 % (0-4.4); Hematocrit 28.6 % (42.0-52.0); Hemoglobin 10.1 g/dL (14.0-18.0); Immature Granulocyte Absolute 0.04 K/mm3 (0.00-0.031); Immature Granulocyte Percent A 0.8 % (0-0.5); Lymphocytes Absolute Auto 1.54 K/mm3 (0.9-3.2); Lymphocytes Percent Auto 28.9 % (18.3-44.2); Mean Corpuscular HGB Conc 35.3 g/dl (32-36); Mean Corpuscular Hemoglobin 35.1 pg (26-34); Mean Corpuscular Volume 99.3 fl (80-100); Mean Platelet Volume 8.4 fl (7.4-10.4); Monocytes Absolute Auto 0.7 K/mm3 (0.1-0.6); Monocytes Percent Auto 13.5 % (2.6-8.5); Neutrophils Absolute Auto 2.8 K/mm3 (1.3-6.7); Neutrophils Percent Auto 53.2 % (45.5-73.1); Platelet Count Result 251 k/mm3 (150-375); Red Blood Count 2.88 M/mm3 (4.6-6.20); White Blood Count 5.3 K/mm3 (4.5-10.0)
[2021-03-19 05:51] LABS: Albumin Level 2.7 g/dL (3.5-5.1); Anion Gap 1 mmol/L (8-16); Blood Urea Nitrogen 8 mg/dL (9-20); Calcium 7.9 mg/dL (8.4-10.2); Carbon Dioxide 30 mmol/L (22-30); Chloride 98 mmol/L (98-107); Estimated CRCL calculation 129 ml/min; Estimated Glomerular Filt Rate > 60; Glucose 93 mg/dL (75-110); Phosphorus 2.5 mg/dL (2.5-4.5); Potassium 3.2 mmol/L (3.4-5.0); Sodium 129 mmol/L (137-145)
[2021-03-19 06:00] VITALS: BP 147/80; PULSE 61; RESP 21; TEMP 36.6; O2SAT 100
[2021-03-19] MEDS: FUROSEMIDE 20 MG TABLET PO (06:00)
[2021-03-19] MEDS: ACETAMINOPHEN 325 MG TABLET 650 MG PO (06:12)
[2021-03-19] MEDS: SODIUM CHLORIDE 1 GM TABLET PO (08:22)
[2021-03-19] MEDS: NICOTINE (*PBKC) 21 MG PATCH 1 PATCH TRANSDERM (08:22)
[2021-03-19] MEDS: POTASSIUM CHLORIDE 20 MEQ TABLET 40 MEQ PO (08:22)
--- NOTE | 2021-03-19 08:27 | PM.PNNEP ---
Progress Note: A&P Assessment and Plan (1) Acute hyponatremia: Code(s): E87.1 - Hypo-osmolality and hyponatremia Status: Acute Assessment and Plan: The patient has low sodium. There is a chronic component but definitely now an acute component. Serum and urine osmolality are pending. TSH and cortisol are okay. SPE is pending most likely the low sodium is due to hydrochlorothiazide and possibly dehydration. He may have a component of SIADH. Hold off on repeating the serum and urine osmolality because the 1st ones are pending and also because he was on furosemide. Sodium is up to 129 last night and today. I think this is okay for discharge if all others are okay. Patient should stay off hydrochlorothiazide for ever. Potassium was a little bit low. He can go home on some potassium supplements. He should continue to the current fluid restriction at home. He should stay off alcohol. He should call my office in the morning make an appointment. I will call in labs to [facility] for him to get done on Saturday or and I can see next week in the office. (2) Acute hypokalemia: Code(s): E87.6 - Hypokalemia Status: Acute Assessment and Plan: Potassium is low again. He received some potassium today. (3) Weakness: Code(s): R53.1 - Weakness Status: Acute Assessment and Plan: Improved (4) Hypertension: Code(s): I10 - Essential (primary) hypertension Status: Acute Assessment and Plan: His blood pressure is doing well. He is off his antihypertensives for now. I can restart his lisinopril in the office if his blood pressure rises. Subjective Date/time seen: 03/19/21 08:27 Interval history: Patient is feeling better. No dizziness with ambulation. Eager for discharge. Review of Systems Cardiovascular: Cardiovascular: Reports no additional cardiovascular complaints Respiratory: Respiratory: Reports no additional respiratory complaints Gastrointestinal: Gastrointestinal: Reports no additional gastrointestinal complaints Genitourinary: Genitourinary: Reports no additional male genitourinary complaints Exam Narrative: Exam Narrative: WDWN in NAD skin no rash or subcu nodules head ncat lungs clear to auscultation cor reg no rub or gallop abd BS+ nontender and soft ext no edema Objective Data Vital Signs Vital Signs: Vital Signs - 24 hr 03/18/21 10:00 03/18/21 12:00 03/18/21 14:00 Temperature 36.8 C Pulse Rate 69 78 61 Respiratory Rate 16 Blood Pressure 124/82 Pulse Oximetry 98 03/18/21 15:11 03/18/21 16:00 03/18/21 22:00 Temperature 36.6 C 36.7 C Pulse Rate 72 73 Respiratory Rate 16 21 H Blood Pressure 125/80 106/79 Pulse Oximetry 97 99 100 03/18/21 22:05 03/18/21 22:08 03/19/21 06:00 Temperature 36.6 C 36.7 C 36.6 C Pulse Rate 68 81 61 Respiratory Rate 21 H 20 21 H Blood Pressure 121/77 115/75 147/80 H Pulse Oximetry 100 98 100 Intake/Output Intake/Output: Intake & Output 03/16/21 03/17/21 03/18/21 03/19/21 23:59 23:59 23:59 23:59 Intake Total 3190 2870 1990 240 Output Total 900 1100 500 800 Balance 2290 1770 1490 -560 Meds/Results Medications: Active Medications Generic Name Dose Route Start Last Admin Trade Name Freq PRN Reason Stop Dose Admin Acetaminophen 650 mg 03/17/21 22:23 03/19/21 06:12 Acetaminophen 325 Mg Tablet PO 650 mg Q4H PRN Administration Mild Pain (1-3) or Fever Calcium Carbonate 200 mg 03/16/21 13:37 03/18/21 19:35 Calcium Carbonate (Tums) 500 Mg (200 Mg Elemental) PO 200 mg Q6H PRN Administration Indigestion Furosemide 20 mg 03/16/21 19:00 03/19/21 06:00 Furosemide 20 Mg Tablet PO 20 mg Q8HR NESSA Administration Nicotine 1 patch 03/17/21 09:25 03/19/21 08:22 Nicotine (*Pbkc) 21 Mg Patch TRANSDERM 1 patch QAM NESSA Administration Sodium Chloride 1 gm 03/18/21 12:00 03/19/21 08:22
[2021-03-19 09:30] VITALS: BP 108/74; PULSE 85; RESP 14; TEMP 36.6; O2SAT 100
[2021-03-19 09:35] VITALS: BP 99/73; PULSE 88
--- NOTE | 2021-03-19 10:04 | PM.DS ---
DS: Admitting Diagnosis Admitting Diagnosis Admitting Diagnosis: hyponatremia DS: Discharge Diagnosis Discharge Diagnosis (1) Orthostatic hypotension: Code(s): I95.1 - Orthostatic hypotension Status: Acute (2) Normocytic anemia: Code(s): D64.9 - Anemia, unspecified Status: Acute (3) Generalized weakness: Code(s): R53.1 - Weakness Status: Acute (4) Hypokalemia: Code(s): E87.6 - Hypokalemia Status: Acute (5) Hyponatremia: Code(s): E87.1 - Hypo-osmolality and hyponatremia Status: Acute (6) Tobacco dependence: Code(s): F17.200 - Nicotine dependence, unspecified, uncomplicated Status: Acute (7) Acute hyponatremia: Code(s): E87.1 - Hypo-osmolality and hyponatremia Status: Acute (8) Acute hypokalemia: Code(s): E87.6 - Hypokalemia Status: Acute (9) Hypertension: Code(s): I10 - Essential (primary) hypertension Status: Acute DS: Summary Hospital Course Hospital Course: This is a 55-year-old male smoker with hypertension who presented to the emergency department earlier today via EMS from his primary care provider's office for further evaluation of weakness. He reports progressive weakness over the past month and has had problems with lightheadedness and dizziness, mainly with going from a sitting to standing position. His balance has also been poor and he has been using a cane to help steady himself with ambulating. More recently he has had several falls and syncopal episodes with numerous abrasions, contusions, and skin tears on his extremities and forehead. He was seen by Dr. Ortiz and she sent him to the emergency department as he was reportedly orthostatic in the clinic. In the emergency department his blood pressure did drop from 100/84 to 84/68 upon standing and he had reproducible dizziness. He was also found to be profoundly hyponatremic with a sodium level of 116. He has taken hydrochlorothiazide for about a year and has not had any change in dosing. He drinks maybe 4 to 5 beers a week and reports drinking other liquids liquids in a typical amount. No history of thyroid disease or malignancy and he also denies chronic pain and chronic narcotic use. Appetite has been decreased but no nausea, vomiting, or diarrhea. # Severe hyponatremia: he does have hx of hyponatremia in the past with Na level at 130 noted in 2019. admission Na 116. placed on ivf. slowly improving. no hx of hypothyroidism or adrenal insufficiency. orthostasis positive suggestive of hypovolemic hyponatremia. placed on ivf. na level slowly improving. TSH normal. cortisol appropriate. FeNa 0.6% suggesting prerenal. Dr. Bray nephrology consulted. Appreciate his input. stop HCTZ. he subsequently was switched to salt tablets along with lasix. low k due to lasix was replaced and will be continued as op basis. na level has improved and back to normal at the time of discharge. he will follow up with him as op basis. # Orthostatic hypotension: bp meds on hold. iv hydration. adrenal insuffi ruled out. thyroid function normal. likely from hypovolemia. this resolved at the time of discahrge. # Hypokalemia: replace K. going home on k supplment along with lasix. recheck bmp this week and see nephrology in a week. # Generalised weakness: likely from hyponatremia # Hypertension: Blood pressures were reviewed and he has been having some orthostasis thus will hold his antihypertensives. stable on lasix. brandon stop his home regimen. # Tobacco abuse: The patient continues to smoke cigarettes and is not entirely motivated at this time but we did discuss the importance of smoking cessation. Nicotine patch ordered. # Alcohol abuse # Anemia: no signs of blood loss. more anemic this time compared to last years lab. could be dilutional for the drop. will check iron profile, fobt and vitmain b12, folate level. reticulocyte count. peripheral smear [facility]. [facility] lab
[2021-03-19 18:42] LABS: Albumin 3.2 g/dL (3.8-4.8); Alpha 1 Globulin 0.4 g/dL (0.2-0.3); Alpha 2 Globulin 0.6 g/dL (0.5-0.9); Beta 1 Globulin 0.4 g/dL (0.4-0.6); Gamma Globulin 0.8 g/dL (0.8-1.7); Protein, Total 5.6 g/dL (6.1-8.1)
== END 2021-03-19 11:40 | disposition home or self-care (01) | DRG 426 ==
LOC: ANHED 14:44 → ANHIMU 14:45 → ANH2MED 03-18 16:45
PROVIDERS: Internal Medicine Nephrology; Physician Assistant; Admitting Provider Hospitalist; Emergency Provider Emergency Medicine; PCP Family Medicine; Visit Provider Internal Medicine
DX: E87.1 Hypo-osmolality and hyponatremia (principal); E87.6 Hypokalemia; F17.200 Nicotine dependence, unspecified, uncomplicated; D64.9 Anemia, unspecified; I95.1 Orthostatic hypotension; E86.0 Dehydration; I10 Essential (primary) hypertension; F10.10 Alcohol abuse, uncomplicated
CPT/HCPCS: 36415; 70450; 71045; 80048; 80053; 80069; 81003; 82274; 82533; 82570; 82607; 82728; 82746; 83540; 83550; 83615; 83735; 83930; 83935; 84100; 84155; 84165; 84295; 84300; 84443; 85025; 85046; 93005; 96360; 96361; 96374; 97110; 97161; 97165; 97530; 97535; 99285; A9270; G0378; G0379; J3411; J7030

== ENCOUNTER 2021-04-28 11:57 | Emergency (ER) | payer OTHER, SELFPAY ==
[2021-04-28] VITALS (35 sets, daily range): BP systolic 110–133; BP diastolic 82–105; PULSE 72–135; RESP 11–32; TEMP 37.1; O2SAT 97–100
--- NOTE | ~2021-04-28 | CT_ITS ---
EXAMINATION: CT chest abdomen pelvis w con DATE: 04/28/2021 20:05 INDICATION: Wasting symptoms. Syndrome of inappropriate ADH. Search for occult cancer. TECHNIQUE: Computed tomography (CT) of the chest, abdomen, and pelvis was performed with 100 cc Omnip aque 350 intravenous contrast. Automated exposure control and iterative reconstruction technique were employed. Exam dose: 326.38 mGy-cm total exam DLP. COMPARISON: None FINDINGS: CHEST CT: Mild to moderate emphysematous changes of the lungs. No pulmonary infiltrate or consolidation or pulm onary mass lesion is evident. Normal heart size. Coronary artery calcification. No thoracic aortic aneurysm or dissection. No hilar or mediastinal mass lesion or lymphadenopathy. No CT evidence of pulmonary embolism. ABDOMEN/PELVIS CT: Cholelithiasis. Gallbladder wall thickening. No pericholecystic fat stranding or fluid. No bile duct or pancreatic duct dilatation. No hepatic, splenic, pancreatic, and adrenal or renal space-occupying mass lesion with the exception of probable 6 mm lower pole left renal cyst. No urinary tract obstruction or hydroureteronephrosis. The urinary bladder is unremarkable. Mild pros horn enlargement. Prostate calcifications. There is atherosclerotic calcification of the abdominal aorta but no abdominal aortic aneurysm. No intraperitoneal or retroperitoneal or pelvic mass lesion or adenopathy or ascites. Diverticulosis of the left and right colon; no CT evidence of diverticulitis. No bowel obstruction or intraperitoneal free air. Small fat-containing umbilical and left inguinal hernias. Included skeletal structures are unremarkable; no suspicious osteolytic or osteoblastic lesions IMPRESSION: Emphysema Coronary artery atherosclerosis Cholelithiasis Diverticulosis of left and right colon; no evidence of diverticulitis Reviewed, dictated and finalized at [facility]. Reviewed, dictated and finalized at location [facility].
--- NOTE | ~2021-04-28 | XR_ITS ---
EXAMINATION: XR chest 2V EXAM DATE: 04/28/2021 14:46 INDICATION: Shortness of breath, weakness. History COPD. TECHNIQUE: Frontal and lateral projections of the chest obtained and reviewed. Comparison is made to prior examination from 03/15/2021. FINDINGS: The lungs are clear. There are no pleural effusions. The cardiomediastinal silhouette is within normal limits. There is no pneumothorax suspected. The bones and soft tissues are unremarkab le. IMPRESSION: No acute cardiopulmonary findings. Reviewed, dictated and finalized at location [facility].
--- NOTE | 2021-04-28 12:07 | ECG_ITS ---
Measurements Intervals [place] Rate: 86 P: 51 WA: 126 QRS: -66 QRSD: 160 T: 61 QT: 412 QTc: 494 Interpretive Statements SINUS RHYTHM RIGHT BUNDLE BRANCH BLOCK LEFT POSTERIOR FASCICULAR BLOCK ABNORMAL ECG Electronically Signed On 04-28-2021 13:39:51 CDT by James Cox D.O.
[2021-04-28 12:21] LABS: Basophils Absolute Auto 0.1 K/mm3 (0.0-0.1); Basophils Percent Auto 0.9 % (0.2-1.2); Eosinophils Percent Auto 0.1 % (0-4.4); Hematocrit 28.3 % (42.0-52.0); Hemoglobin 10.1 g/dL (14.0-18.0); Immature Granulocyte Absolute 0.09 K/mm3 (0.00-0.031); Lymphocytes Percent Auto 11.8 % (18.3-44.2); Mean Corpuscular HGB Conc 35.7 g/dl (32-36); Mean Corpuscular Hemoglobin 34.4 pg (26-34); Mean Corpuscular Volume 96.3 fl (80-100); Mean Platelet Volume 8.2 fl (7.4-10.4); Monocytes Absolute Auto 0.6 K/mm3 (0.1-0.6); Monocytes Percent Auto 5.9 % (2.6-8.5); Neutrophils Absolute Auto 7.5 K/mm3 (1.3-6.7); Neutrophils Percent Auto 80.3 % (45.5-73.1); Platelet Count Result 308 k/mm3 (150-375); Red Blood Count 2.94 M/mm3 (4.6-6.20); White Blood Count 9.3 K/mm3 (4.5-10.0)
[2021-04-28 12:32] LABS: Alanine Aminotransferase 10 U/L (4-50); Albumin Level 2.7 g/dL (3.5-5.1); Alkaline Phosphatase 120 U/L (38-126); Anion Gap 7 mmol/L (8-16); Aspartate Amino Transferase 33 U/L (17-59); Bilirubin,Total 0.7 mg/dL (0.2-1.3); Blood Urea Nitrogen 6 mg/dL (9-20); Calcium 7.7 mg/dL (8.4-10.2); Carbon Dioxide 30 mmol/L (22-30); Chloride 92 mmol/L (98-107); Estimated CRCL calculation 107 ml/min; Estimated Glomerular Filt Rate > 60; Glucose 103 mg/dL (75-110); Potassium 2.6 mmol/L (3.4-5.0); Sodium 129 mmol/L (137-145)
[2021-04-28 12:41] LABS: Add Urine Microscopic? YES; Appearance Urine Clear (Clear); Bacteria Urine Trace /hpf; Bilirubin Urine Negative (Negative); Blood Urine Negative (Negative); Color Urine Yellow (Yellow); Glucose Urine UA Negative (Negative); Ketones Urine Negative (Negative); Leukocyte Esterase Ur Negative LEU/UL (Negative); Mucus Urine Rare /lpf; Nitrate Urine Negative (Negative); Protein Urine 1+ mg/dL (Negative); RBC Urine 0-2 /hpf (0-2); Squamous Epithelial Cell Urine Rare /hpf (Few); Urobilinogen Urine Negative mg/dL (<2.0); WBC Urine 0-3 /hpf
--- NOTE | 2021-04-28 12:50 | PC.NURSE ---
Added on a Cordelia COBURN. Talked to Sharla in lab at [phone]
[2021-04-28] MEDS: POTASSIUM CHLORIDE 20 MEQ PACKET (FOR LIQUID) 60 MEQ PO (12:53)
[2021-04-28 13:10] LABS: Potassium Urine Random 16.1 meq/L; Sodium Urine Random 49 meq/L
[2021-04-28 13:18] LABS: Magnesium 1.8 mg/dL (1.6-2.3); Phosphorus 3.7 mg/dL (2.5-4.5)
--- NOTE | 2021-04-28 14:20 | PC.NURSE ---
Orthostatics performed, pt demonstrates dizziness when standing. Pt states the act of standing up also makes him short of breath. Dr. Rosado made aware of orthopnea as well as dizziness.
--- NOTE | 2021-04-28 14:20 | ED.WEAKNESS ---
HPI - Weakness General Chief complaint: Weakness Stated complaint: weakness Time Seen by Provider: 04/28/21 12:18 Source: patient Mode of arrival: ambulatory Limitations: no limitations History of Present Illness HPI Narrative: 55-year-old male Patient was recently hospitalized here for generalized weakness, found to be hyponatremic, some adjustments were made to his medications, and he was to follow-up with nephrology and primary care He has not yet seen Dr. Bray but he apparently presented to the primary care office today and was weak and orthostatic so he was sent to the ER I tried calling to get particulars of his presentation there and what the ongoing plan of care for him was but his physician was already signed out to on-call for the weekend Essentially his current complaint is slowly progressive and increasingly profound generalized weakness especially weakness in the legs, dizziness when upright, and that he gets dyspneic with exertion He does not have a cough, does not have a fever, does not have chest pains, does not have edema Contrary to the triage note, the patient tells me that he actually is taking all of his medications However he is not restricting his fluids, and he is still enjoying about 3 beers 3 times a week Smokes 1 pack a day Looking over his medication list it appears he is taking generic prinzide even though the nephrology eyewear consultant expressly suggest that he should never take hydrochlorothiazide Related Data Home Medications Medication Instructions Recorded Confirmed lisinopril-hydrochlorothiazide tablet 04/28/21 04/28/21 Allergies Allergy/AdvReac Type Severity Reaction Status Date / Time amoxicillin Allergy Rash Verified 04/28/21 12:09 Review of Systems Review of Systems: All systems reviewed & are unremarkable except as noted in HPI and below Constitutional: Constitutional: Reports no additional constitutional complaints, Denies chills, Reports fatigue, Denies fever(s), Denies headache(s) and Reports weakness Eyes: Eyes: Reports no additional eye complaints and Denies change in vision ENT: Denies headache(s) and Denies sore throat Cardiovascular: Cardiovascular: Denies chest pain and Denies dyspnea Respiratory: Respiratory: Denies chest congestion, Denies cough, Reports dyspnea and Denies wheezing Gastrointestinal: Gastrointestinal: Denies abdominal pain, Denies diarrhea and Denies vomiting Genitourinary: Genitourinary: Denies dysuria and Denies urinary frequency Musculoskeletal: Musculoskeletal: Denies deformity, Denies arthralgias, Denies joint swelling, Denies muscle cramps and Denies numbness Integumentary/Breasts: Skin/Breast: Denies rash and Denies wounds Neurologic: Reports dizziness, Denies headache(s), Denies focal weakness, Denies numbness and Reports weakness Psychiatric: Psychiatric: Reports no additional psychiatric complaints Endocrine: Endocrine: Reports no additional endocrine complaints Hematologic/Lymphatic: Hematologic/Lymphatic: Reports no additional hematologic/lymphatic complaints Allergic/Immunologic: Allergic/Immunologic: Reports no additional allergic/immunologic complaints [facility] Past Medical History Medical History (Updated 04/28/21 @ 19:49 by Eljiah Rosado MD) Hypertension Tobacco dependence Surgical History Surgical History (Updated 03/15/21 @ 20:05 by Denia Kate PA-C) History of excision of testicular mass With benign histology. Family History Family History (Updated 03/15/21 @ 20:06 by Denia Kate PA-C) Father Chronic obstructive pulmonary disease Congestive heart failure Hypertension Mother Abdominal aortic aneurysm rupture Daughter Type 1 diabetes mellitus Social History Social History (Updated 03/15/21 @ 20:08 by Denia Kate PA-C) Social History: Surrogate decision maker: Bere Kalin, sister. Code status: Full code. Smoking packs per day: 1 Sm
--- NOTE | 2021-04-28 14:45 | PC.NURSE ---
Added on a trop 1 baseline and BNP. Spoke to Jarad in lab at [id number]
--- NOTE | 2021-04-28 15:13 | PC.NURSE ---
Called lab at 1514 to add on BNP per RN
[2021-04-28 15:29] LABS: NT Pro B Type Natriuretic Pept 1010 pg/mL (5-100); Troponin I < 0.012 ng/mL (0.000-0.034)
--- NOTE | 2021-04-28 15:36 | PC.NURSE ---
Called to add on Vit B12, retic, FE TIBC, Ferritin at 1536 per RN
[2021-04-28 16:01] LABS: Iron 108 ug/dL (49-181)
[2021-04-28 16:13] LABS: Percent Iron Saturation 64 % (20-50)
[2021-04-28 16:15] LABS: Immature Reticulocyte Fraction 24.8 % (3.0-15.9); Reticulocyte Hemoglobin Conten 38.4 pg (28.2-35.7); Reticulocyte Percent 4.62 % (0.7-4.3); Reticulocytes Absolute 0.14 B/L (32.2-175.7)
[2021-04-28] MEDS: POTASSIUM CHLORIDE 20 MEQ TABLET 40 MEQ PO (16:21)
--- NOTE | 2021-04-28 16:59 | PC.NURSE ---
Preparing to redraw BMP at 1800 to recheck KCL level.
[2021-04-28 17:13] LABS: Folic Acid 7.2 ng/mL (2.76->20)
--- NOTE | 2021-04-28 18:10 | PC.NURSE ---
Repeat KCL level being drawn. KCL rider almost completed.
[2021-04-28 18:27] LABS: Anion Gap 4 mmol/L (8-16); Blood Urea Nitrogen 7 mg/dL (9-20); Calcium 7.6 mg/dL (8.4-10.2); Carbon Dioxide 30 mmol/L (22-30); Chloride 94 mmol/L (98-107); Estimated CRCL calculation 107 ml/min; Estimated Glomerular Filt Rate > 60; Glucose 120 mg/dL (75-110); Sodium 128 mmol/L (137-145)
--- NOTE | 2021-04-28 19:06 | PC.NURSE ---
Report to ANGÉLICA Garza. Awaiting dispostion.
--- NOTE | 2021-04-28 19:32 | PC.NURSE ---
patient able to ambulate to the bathroom and back.
== END 2021-04-28 21:37 | disposition home or self-care (01) ==
PROVIDERS: General Practice; Emergency Provider Emergency Medicine; PCP Family Medicine
DX: R53.1 Weakness (principal); E87.6 Hypokalemia; E87.1 Hypo-osmolality and hyponatremia; D64.9 Anemia, unspecified; I10 Essential (primary) hypertension; F17.210 Nicotine dependence, cigarettes, uncomplicated; K57.90 Diverticulosis of intestine, part unspecified, without perforation or abscess without bleeding; K80.20 Calculus of gallbladder without cholecystitis without obstruction; I25.10 Atherosclerotic heart disease of native coronary artery without angina pectoris; J43.9 Emphysema, unspecified
CPT/HCPCS: 36415; 71046; 71260; 74177; 80048; 80053; 81001; 82607; 82728; 82746; 83540; 83550; 83735; 83880; 84100; 84133; 84300; 84484; 85025; 85046; 93005; 96365; 96366; 99284; A9270; J3480; J7060; Q9967

== ENCOUNTER 2021-07-16 17:16 | Inpatient (IN) | payer OTHER, SELFPAY ==
[2021-07-16] VITALS (18 sets, daily range): BP systolic 96–125; BP diastolic 73–96; PULSE 72–96; RESP 16–34; TEMP 36.1–36.6; O2SAT 97–100
--- NOTE | ~2021-07-16 | XR_ITS ---
EXAMINATION: XR chest 1V portable DATE: 07/16/2021 17:46 INDICATION: Shortness of breath. TECHNIQUE: A single frontal view of the chest was obtained on 2 radiographs. COMPARISON: Chest 2 views 04/28/2021, chest CT 04/28/2021 FINDINGS: The lungs are hyperexpanded, consistent with emphysema. No pleural effusion or pneumothorax . The heart size is normal. IMPRESSION: 1. Emphysema. Reviewed, dictated and finalized at location A. IMPRESSION: 1. Emphysema.
--- NOTE | ~2021-07-16 | CT_ITS ---
EXAMINATION: CT brain wo con DATE: 07/16/2021 18:31 INDICATION: Confusion. TECHNIQUE: Computed tomography (CT) of the head was performed without intravenous contrast. The mA wa s adjusted according to patient size. Iterative reconstruction technique was employed. The dose-lengt h product was 605.33 mGy-cm. COMPARISON: Head CT 03/15/2021 FINDINGS: There are small old infarcts in the cerebellum bilaterally. There are infarcts in the right occipital lobe and left parietal and occipital lobes. There are old lacunar infarcts in the bilatera l basal ganglia. There are scattered areas of low attenuation in the cerebral white matter, which is within normal limits for the patient's age. There is no intracranial hemorrhage or abnormal mass lesi on. The ventricles are normal in size. There is mild mucosal thickening in the ethmoid sinuses. The m astoid air cells are normal. The orbits are normal. IMPRESSION: 1. Infarcts in the right occipital lobe and left parietal and occipital lobes, likely acute. 2. 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 Reviewed, dictated and finalized at location A.
--- NOTE | ~2021-07-16 | CT_ITS ---
EXAMINATION: CTA brain carotid DATE: 07/16/2021 19:21 INDICATION: Cerebrovascular accident. TECHNIQUE: Computed tomographic angiography (CTA) of the head was performed with 100 mL Omnipaque-350 intravenous contrast. CTA of the neck was performed with intravenous contrast. Automated exposure co ntrol and iterative reconstruction technique were employed. The dose-length product was 1122.33 mGy-c m. Maximum intensity projection and volume rendered 3D-reconstructions were created by the technologi st on a separate workstation. COMPARISON: Head CT 07/16/2021. FINDINGS: HEAD CTA: There are small old infarcts in the cerebellum bilaterally. There are infarcts in the right occipital lobe and left parietal and occipital lobes. There are old lacunar infarcts in the bilatera l basal ganglia. There are scattered areas of low attenuation in the cerebral white matter, which is within normal limits for the patient's age. There is no intracranial hemorrhage or abnormal mass lesi on. The ventricles are normal in size. There is mild mucosal thickening in the paranasal sinuses. The mastoid air cells are normal. The orbits are normal. The vertebral arteries are codominant. There is no significant stenosis of basilar artery or the proximal posterior cerebral arteries. There is a de creased number of arteries within the infarct volumes. There is no significant stenosis of the intrac ranial internal carotid arteries or anterior or middle cerebral arteries. Anterior communicating matt ry is normal. There is no aneurysm. NECK CTA: There is mild emphysema. There are no pathologically enlarged lymph nodes. There is no sign ificant stenosis of the vertebral arteries. There is plaque in the proximal internal carotid arteries . There is 0% stenosis of the proximal right internal carotid artery relative to normal distal artery lumen diameter (NASCET criteria). There is 0% stenosis of the proximal left internal carotid artery relative to normal distal artery lumen diameter. There is severe cervical spondylosis. IMPRESSION: 1. Infarct in the right occipital lobe and left parietal occipital lobes, likely acute. 2. 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 3. No aneurysm or significant intracranial arterial stenosis. 4. 0% stenosis of the proximal internal carotid arteries relative to normal distal artery lumen diame ters (NASCET criteria). Reviewed, dictated and finalized at location A. IMPRESSION: 1. Infarct in the right occipital lobe and left parietal occipital lobes, likel y acute. 2. 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 3. No aneurysm or significant intracranial arterial stenosis. 4. 0% stenosis of the proximal internal carotid arteries relative to normal dis josé miguel artery lumen diameters (NASCET criteria).
--- NOTE | ~2021-07-16 | US_ITS ---
EXAMINATION: US venous doppler [facility] DATE: 07/17/2021 16:12 INDICATION: Shortness of breath TECHNIQUE: Carson scale images without and with compression and Doppler images of the bilateral lower e xtremity veins were obtained. COMPARISON: None FINDINGS: The right common femoral vein, profunda femoral vein, femoral vein, popliteal vein, peroneal trunk, p osterior tibial veins, and greater saphenous vein are patent. The left common femoral vein, profunda femoral vein, femoral vein, popliteal vein, peroneal trunk, po sterior tibial veins, and greater saphenous vein are patent. IMPRESSION: 1. Patent bilateral lower extremity veins. No evidence of deep venous thrombosis. Reviewed, dictated and finalized at location A. IMPRESSION: 1. Patent bilateral lower extremity veins. No evidence of deep venous thrombosi s.
--- NOTE | ~2021-07-16 | XR_ITS ---
EXAMINATION: XR barium swallow modified DATE: 07/19/2021 13:19 INDICATION: Dysphagia. TECHNIQUE: The patient was given barium-containing material of multiple consistencies to swallow by t he speech pathologist while I performed fluoroscopy. Fluoroscopy exposure time was 1.6 minutes. The n umber of fluoroscopy images saved to the PACS was 2. Dose-area product was 1.106 Gy-cm^2. FINDINGS: There is no laryngeal penetration or aspiration. IMPRESSION: 1. No laryngeal penetration or aspiration. 2. Please refer to the speech therapy report for recommendations. Reviewed, dictated and finalized at location A.
--- NOTE | ~2021-07-16 | CT_ITS ---
EXAMINATION: CT brain wo con EXAM DATE: 07/18/2021 01:13 INDICATION: Worsening neuro exam. TECHNIQUE: Spiral CT of the head was performed without contrast. Axial, coronal and sagittal images were reviewed. The dose-length product (DLP) for this examination was 605.33 mGy-cm. The exposure w as tailored according to patient size, and iterative reconstruction (ASIR) was used as additional dos e reduction technique. Comparison is made to prior examination from brain MRI examination from . FINDINGS: Redemonstration of small left parietal and moderate size left occipital lobe infarctions. T here is also small right occipital lobe infarction better seen than on prior CT, expected evolution. Brain MRI examination better demonstrated other small scattered small cerebellar and periventricular infarctions. There is mild microangiopathy and moderate cerebral atrophy. No hemorrhagic conversion, brain mass, obstructive hydrocephalus or extra-axial collections. IMPRESSION: Scattered bilateral cerebral, cerebellar infarctions, could indicate cardiac embolic sour ce. No hemorrhagic conversion. Reviewed, dictated and finalized at location A. IMPRESSION: Scattered bilateral cerebral, cerebellar infarctions, could indicat e cardiac embolic source. No hemorrhagic conversion.
--- NOTE | ~2021-07-16 | US_ITS ---
EXAMINATION: US abdomen limited EXAM DATE: 07/19/2021 07:56 INDICATION: Evaluation of the liver TECHNIQUE: Multiple grayscale and Doppler images of the abdomen right upper quadrant were obtained (b y a technologist who performed the scan) and subsequently reviewed. Correlation is made to CT abdomen 04/28/2021. FINDINGS: The pancreatic head and body are normal in appearance. The pancreatic tail is not visualized. The l iver has normal echogenicity and contour. In the left liver lobe anteriorly and inferiorly there is a focal hyperechoic region measuring 1.5 x 1.1 x 1.1 cm, appears to be near the falciform ligament. P robably focal region of hepatic steatosis. There is no evidence of intrahepatic biliary duct dilatio n. Portal venous flow was seen in the hepatopedal, normal direction and has normal Doppler waveform. No right-sided hydronephrosis. Common bile duct measures 2 mm, which is normal. The gallbladder wall is normal in thickness, with ex pected amount of distention. No sonographic evidence of pericholecystic fluid. There is cholelithia sis. Technologist performing exam reports patient did not demonstrate sonographic Vinson's sign. P lease note that this sign is less reliable in patients who have received pain medication. IMPRESSION: 1. Left liver lobe hyperechoic region most likely focal hepatic steatosis. 2. Cholelithiasis. Reviewed, dictated and finalized at location A.
--- NOTE | ~2021-07-16 | MR_ITS ---
EXAMINATION: MR brain/brain stem wo/w con DATE: 07/17/2021 10:42 INDICATION: Acute cerebrovascular accident. TECHNIQUE: Magnetic resonance imaging (MRI) of the brain and brainstem was performed without and with 10 mL MultiHance intravenous contrast. Sequences included sagittal and axial T1-weighted FSE, axial diffusion-weighted FS EPI, axial T2*-weighted GRE, axial T2-weighted FLAIR Propeller, and axial T2-we ighted Propeller. Postcontrast sequences included axial and coronal T1-weighted FSE. Apparent diffusi on coefficient (ADC) maps were created. COMPARISON: Head CT 07/16/2021 FINDINGS: There are scattered acute infarcts in the cerebellum, bilateral basal ganglia, and bilatera l frontal, parietal, and occipital lobes, worst in the occipital lobes and left parietal lobe. There are scattered areas of nonspecific increased T2-weighted signal intensity in the cerebral white matte r. There is no intracranial hemorrhage or abnormal mass lesion. The ventricles are normal in size. Th e orbits are normal. There is mild mucosal thickening in the paranasal sinuses. There are trace bilat eral mastoid effusions. IMPRESSION: 1. Acute infarcts involving the cerebellum, bilateral basal ganglia, and bilateral frontal, parietal, and occipital lobes. 2. Mild nonspecific cerebral white matter disease, which likely represents chronic small vessel ische jaquelin disease. Reviewed, dictated and finalized at location A. IMPRESSION: 1. Acute infarcts involving the cerebellum, bilateral basal ganglia, and bilate ral frontal, parietal, and occipital lobes. 2. Mild nonspecific cerebral white matter disease, which likely represents sales representative consultant janie small vessel ischemic disease.
--- NOTE | 2021-07-16 17:23 | ECG_ITS ---
Measurements Intervals Dresser Rate: 80 P: 105 CO: 147 QRS: 212 QRSD: 162 T: 100 QT: 413 QTc: 477 Interpretive Statements SINUS RHYTHM RIGHT AXIS DEVIATION RIGHT BUNDLE BRANCH BLOCK BASELINE ARTIFACT- I, II, III, AVR, AVL, AVF, V1-V6 ABNORMAL ECG Electronically Signed On 07-16-2021 20:14:46 CDT by James Cox D.O.
--- NOTE | 2021-07-16 17:27 | ED.AMS ---
HPI - Altered Mental Status General Chief Complaint: Altered Mental Status Stated Complaint: WEAKNESS,AMS Time Seen by Provider: 07/16/21 17:23 History of Present Illness HPI narrative: 56 yo male brought in by EMS for weakness and altered mental status. The patient is a very unreliable historian, but he reports that he has been too weak to get off the couch for a couple of days. He has not had anything to eat or drink over that time. He reports that he does not usually drink every day, but he drinks once a day. He endorses SOB, and chills. Per EMS when they were transporting him he became hypotensive and less responsive. Last known normal not available Related Data Home Medications Medication Instructions Recorded Confirmed lisinopril-hydrochlorothiazide tablet 04/28/21 04/28/21 Allergies Allergy/AdvReac Type Severity Reaction Status Date / Time amoxicillin Allergy Rash Verified 04/28/21 12:09 Review of Systems Review of Systems: ROS unobtainable: Yes unobtainable due to mental status Constitutional: Constitutional: Reports chills, Reports fatigue, Denies fever(s) and Reports weakness Eyes: Eyes: Reports no additional eye complaints ENT: Reports system reviewed and no additional complaints, except as documented Cardiovascular: Cardiovascular: Denies chest pain Respiratory: Respiratory: Reports cough and Reports dyspnea Gastrointestinal: Gastrointestinal: Denies abdominal pain Neurologic: Reports weakness PMFSH Past Medical History Medical History Hypertension Tobacco dependence Surgical History Surgical History History of excision of testicular mass With benign histology. Family History Family History Father Chronic obstructive pulmonary disease Congestive heart failure Hypertension Mother Abdominal aortic aneurysm rupture Daughter Type 1 diabetes mellitus Social History Social History Social History: Surrogate decision maker: Bere Kalin, sister. Code status: Full code. Smoking packs per day: 1 Smoking cigarettes per day: 20.0 Years smoked: 30 Smoking pack-years: 30.00 Smoking status: Current every day smoker Tobacco type: cigarettes Alcohol intake: current Drinks per week: 4 Alcohol use details: 3 to 4 beers per week. Substance use: never Substance use type: does not use Additional living arrangements comments: The patient lives in [place] with his brother. They are both currently unemployed and are living on food stamps. Additional occupation/education comments: Currently unemployed. Gender identity (if verbalized by the patient): Male Spiritual care concerns: No Exam Const: General: no acute distress, alert, confusion and ill appearing acutely and chronically Nutritional Appearance: cachectic Orientation/consciousness: oriented to person and oriented to place HENMT: Head: no contusions and no lacerations Mouth: Yes dry mucous membranes Eyes: Pupils: Equal, round and reactive pupils present Other: sunken Resp: Effort & Inspection: normal respiratory effort Auscultation: rhonchi and wheezes Cardio: Rate: regular rate Rhythm: regular rhythm GI: GI Palp: Yes Soft to palpation and No Tenderness to palpation present (GI) Skin: Other: Dusky Neuro: General: moves all extremities, no focal motor deficits and CN's II-XI intact bilaterally Speech: normal speech Extrem: Other: atrophic Course Vital Signs Vital signs: Vital Signs Temperature 36.1 C L 07/16/21 17:15 Pulse Rate 84 07/16/21 17:15 Respiratory Rate 16 07/16/21 17:15 Blood Pressure 111/96 H 07/16/21 17:15 Pulse Oximetry 97 07/16/21 17:15 Temperature 36.1 C L 07/16/21 17:15 Pulse Rate 77
[2021-07-16 18:40] LABS: Basophils Percent Auto 0.1 % (0.2-1.2); Hematocrit 28.7 % (42.0-52.0); Hemoglobin 9.6 g/dL (14.0-18.0); Immature Granulocyte Absolute 0.16 K/mm3 (0.00-0.031); Immature Granulocyte Percent A 1.8 % (0-0.5); Immature Platelet Fraction Pct 6.4 % (0.9-11.2); Lymphocytes Absolute Auto 0.85 K/mm3 (0.9-3.2); Lymphocytes Percent Auto 9.5 % (18.3-44.2); Mean Corpuscular HGB Conc 33.4 g/dl (32-36); Mean Corpuscular Hemoglobin 34.4 pg (26-34); Mean Corpuscular Volume 102.9 fl (80-100); Mean Platelet Volume 10.8 fl (7.4-10.4); Monocytes Absolute Auto 0.8 K/mm3 (0.1-0.6); Monocytes Percent Auto 8.9 % (2.6-8.5); Neutrophils Absolute Auto 7.1 K/mm3 (1.3-6.7); Neutrophils Percent Auto 79.7 % (45.5-73.1); Nucleated Red Blood Cells Absolute Auto 0.2 K/mm3 (0.0-0.012); Nucleated Red Blood Cells Perc 1.8 % (0.0-0.2); Platelet Count Result 81 k/mm3 (150-375); Red Blood Count 2.79 M/mm3 (4.6-6.20); Red Cell Distribution Width 13.7 % (11.5-14.5); White Blood Count 8.9 K/mm3 (4.5-10.0)
[2021-07-16] MEDS: SODIUM CHLORIDE 0.9% IV 1,000 ML 999 ML IV CONT (18:40)
[2021-07-16] MEDS: THIAMINE HCL 200 MG/2 ML VIAL 100 MG IV PUSH (18:41)
[2021-07-16 18:50] LABS: INR 0.9; Partial Thromboplastin Time 21.6 SECONDS (22.3-36.8); Prothrombin Time 11.7 Seconds (11.1-14.7)
[2021-07-16 18:54] LABS: Alanine Aminotransferase 31 U/L (4-50); Albumin Level 2.8 g/dL (3.5-5.1); Alkaline Phosphatase 95 U/L (38-126); Anion Gap 14 mmol/L (8-16); Aspartate Amino Transferase 30 U/L (17-59); Blood Urea Nitrogen 54 mg/dL (9-20); Carbon Dioxide 19 mmol/L (22-30); Chloride 101 mmol/L (98-107); Creatine Kinase 25 U/L (55-170); Estimated CRCL calculation 47 ml/min; Estimated Glomerular Filt Rate > 60; Glucose 107 mg/dL (65-110); Potassium 2.6 mmol/L (3.4-5.0); Sodium 134 mmol/L (137-145)
[2021-07-16 19:02] LABS: Lactic Acid Reflex 2.7 mmol/L (0.7-2.1)
[2021-07-16 19:07] LABS: Ammonia < 9 umol/L (9-30)
[2021-07-16 19:25] LABS: Add Urine Microscopic? YES; Appearance Urine Cloudy (Clear); Bacteria Urine Trace /hpf; Bilirubin Urine 1+ (Negative); Blood Urine 3+ (Negative); Color Urine Amber (Yellow); Glucose Urine UA Negative (Negative); Ketones Urine Trace mg/dL (Negative); Leukocyte Esterase Ur 3+ LEU/UL (Negative); Mucus Urine Rare /lpf; Nitrate Urine Negative (Negative); Protein Urine 1+ mg/dL (Negative); RBC Urine 21-50 /hpf (0-2); Specific Grav Ur 1.015 (1.001-1.035); Squamous Epithelial Cell Urine Few /hpf (Few); Transitional Epi Cells Urine Rare /hpf (None Seen); WBC Clumps Urine Present /HPF; WBC Urine >75 /hpf
[2021-07-16 19:35] LABS: Amphetamine Screen Urine Negative (Negative); Barbiturate Screen Urine Negative (Negative); Benzodiazepines Screen Urine Negative (Negative); Cannabinoid Screen Urine Negative (Negative); Cocaine Screen Urine Negative (Negative); Methadone Screen Urine Negative (Negative); Opiate Screen Urine Negative (Negative); Phencyclidine Screen Urine Negative (Negative)
--- NOTE | 2021-07-16 19:48 | PM.IMHP ---
H&P: HPI History of Present Illness Date/Time: 07/16/21 19:48 Chief Complaint: Generalized weakness Narrative: This is a 56-year-old male with past medical history significant for hypertension, tobacco dependence, alcohol dependence. Patient was brought to the emergency room due to generalized weakness unable to get up on his own. Most of the history has been obtained upon review of medical records and emergency room. Patient is unable to give any history he does not know where he is when asked he said [place] he can not tell if he is in the hospital in an emergency room department. According to medical records patient was covered in his feces and urine when EMS arrived and was very weak to get up on his own. Preliminary workup was significant for CT of the head with acute infarct and a urinalysis with significant wbc's present a BMP showed a potassium of 2.5 a hemoglobin of 9 hematocrit of 28 and an MCV of 102 a chest x-ray showed emphysema. Review of Systems Review of Systems: ROS unobtainable: Yes unobtainable due to medical condition (Suspect underlying dementia secondary to malnutrition and alcohol intake) [facility], [facility] Past Medical History Medical History Hypertension Tobacco dependence Surgical History Surgical History History of excision of testicular mass With benign histology. Family History Family History Father Chronic obstructive pulmonary disease Congestive heart failure Hypertension Mother Abdominal aortic aneurysm rupture Daughter Type 1 diabetes mellitus Social History Social History Social History: Surrogate decision maker: Bere Gagnon, sister. Code status: Full code. Smoking packs per day: 1 Smoking cigarettes per day: 20.0 Years smoked: 30 Smoking pack-years: 30.00 Smoking status: Current every day smoker Tobacco type: cigarettes Alcohol intake: current Drinks per week: 4 Alcohol use details: 3 to 4 beers per week. Substance use: never Substance use type: does not use Additional living arrangements comments: The patient lives in [place] with his brother. They are both currently unemployed and are living on food stamps. Additional occupation/education comments: Currently unemployed. Gender identity (if verbalized by the patient): Male Spiritual care concerns: No Meds Home Medications and Allergies Home Medications Medication Instructions Recorded Confirmed Type furosemide 20 mg PO Q8HR #90 tablet 03/19/21 Rx potassium chloride [K-Tab] 40 meq PO DAILY@0800 #30 tablet 03/19/21 Rx sodium chloride 1 g PO TIDWM #90 tablet 03/19/21 Rx lisinopril 10 mg PO DAILY #30 tablet 04/28/21 Rx lisinopril-hydrochlorothiazide tablet 04/28/21 04/28/21 History potassium chloride [K-Tab] 40 meq PO BID #90 tablet 04/28/21 Rx Allergies Allergy/AdvReac Type Severity Reaction Status Date / Time amoxicillin Allergy Rash Verified 04/28/21 12:09 Vital Signs Vital Signs - 24 hr 07/16/21 17:15 07/16/21 17:27 07/16/21 17:28 Temperature 97 F L Pulse Rate 84 Respiratory Rate 16 34 H 21 H Blood Pressure 111/96 H 104/92 H Pulse Oximetry 97 07/16/21 17:30 07/16/21 17:31 07/16/21 17:45 Temperature Pulse Rate 92 91 83 Respiratory Rate 19 19 22 H Blood Pressure Pulse Oximetry 07/16/21 18:00 07/16/21 18:21 07/16/21 18:32 Temperature Pulse Rate 92 96 Respiratory Rate 25 H 16 Blood Pressure Pulse Oximetry 100 98 H&P: Results Labs Labs: Short CBC 07/16/21 Range/Units 18:20 WBC 8.9 (4.5-10.0) K/mm3 Hgb 9.6 L (14.0-18.0) g/dL Hct 28.7 L (42.0-52.0) % Plt Count 81 L D (150-375) k/mm3 BMP 07/16/21 18:20 Sodium 134 L Pot
[2021-07-16] MEDS: ASPIRIN 81 MG CHEWABLE TABLET 324 MG PO (19:57)
[2021-07-16] MEDS: CLOPIDOGREL BISULFATE 300 MG TABLET PO (19:57)
[2021-07-16 21:50] LABS: Reflex Lactic Acid Yes or No Add Lactic
[2021-07-16 21:53] LABS: Magnesium 2.4 mg/dL (1.6-2.3)
[2021-07-16 22:02] LABS: Transferrin 116 mg/dL (206-381)
[2021-07-16] MEDS: ALBUTEROL SULFATE NEB 2.5 MG/0.5 ML INH 5 MG INHALATION (22:04)
[2021-07-16] MEDS: IPRATROPIUM BR 0.02% INH SOLN 0.5 MG/2.5 ML VIAL INHALATION (22:04)
[2021-07-16] MEDS: THIAMINE HCL INJ 100 MG, FOLIC ACID INJ 1 MG, MULTIVITAMINS-12 INJ VIAL 1 5 ML, MULTIVI... IV CONT (22:06)
--- NOTE | 2021-07-16 22:47 | PM.IMHP ---
H&P: HPI History of Present Illness Date/Time: 07/16/21 22:47 Chief Complaint: Generalized weakness Narrative: Narrative: This is a 56-year-old male with past medical history significant for hypertension, tobacco dependence, alcohol dependence. Patient was brought to the emergency room due to generalized weakness unable to get up on his own. Most of the history has been obtained upon review of medical records and emergency room. Patient is unable to give any history he does not know where he is when asked he said [place] he can not tell if he is in the hospital in an emergency room department. According to medical records patient was covered in his feces and urine when EMS arrived and was very weak to get up on his own. Preliminary workup was significant for CT of the head with acute infarct and a urinalysis with significant wbc's present a BMP showed a potassium of 2.5 a hemoglobin of 9 hematocrit of 28 and an MCV of 102 a chest x-ray showed emphysema. Review of Systems Review of Systems: ROS unobtainable: Yes unobtainable due to medical condition [facility] Past Medical History Medical History Hypertension Tobacco dependence Surgical History Surgical History History of excision of testicular mass With benign histology. Family History Family History Father Chronic obstructive pulmonary disease Congestive heart failure Hypertension Mother Abdominal aortic aneurysm rupture Daughter Type 1 diabetes mellitus Social History Social History Social History: Surrogate decision maker: Bere Rushjewelshoda, sister. Code status: Full code. Smoking packs per day: 1 Smoking cigarettes per day: 20.0 Years smoked: 30 Smoking pack-years: 30.00 Smoking status: Current every day smoker Tobacco type: cigarettes Alcohol intake: current Drinks per week: 4 Alcohol use details: 3 to 4 beers per week. Substance use: never Substance use type: does not use Additional living arrangements comments: The patient lives in [place] with his brother. They are both currently unemployed and are living on food stamps. Additional occupation/education comments: Currently unemployed. Gender identity (if verbalized by the patient): Male Spiritual care concerns: No Meds Home Medications and Allergies Home Medications Medication Instructions Recorded Confirmed Type furosemide 20 mg PO Q8HR #90 tablet 03/19/21 Rx potassium chloride [K-Tab] 40 meq PO DAILY@0800 #30 tablet 03/19/21 Rx lisinopril-hydrochlorothiazide tablet 04/28/21 04/28/21 History Allergies Allergy/AdvReac Type Severity Reaction Status Date / Time amoxicillin Allergy Rash Verified 04/28/21 12:09 Vital Signs Vital Signs - 24 hr 07/16/21 17:15 07/16/21 17:27 07/16/21 17:28 Temperature 97 F L Pulse Rate 84 Respiratory Rate 16 34 H 21 H Blood Pressure 111/96 H 104/92 H Pulse Oximetry 97 07/16/21 17:30 07/16/21 17:31 07/16/21 17:45 Temperature Pulse Rate 92 91 83 Respiratory Rate 19 19 22 H Blood Pressure Pulse Oximetry 07/16/21 18:00 07/16/21 18:21 07/16/21 18:32 Temperature Pulse Rate 92 96 Respiratory Rate 25 H 16 Blood Pressure Pulse Oximetry 100 98 07/16/21 18:45 07/16/21 18:46 07/16/21 19:00 Temperature Pulse Rate 90 91 75 Respiratory Rate 23 H Blood Pressure 107/89 Pulse Oximetry 100 100 100 07/16/21 19:01 07/16/21 19:44 07/16/21 19:45 Temperature Pulse Rate 85 79 77 Respiratory Rate 22 H 22 H Blood Pressure 125/96 H Pulse Oximetry 100 100 100 07/16/21 22:05 07/16/21 22:12 Temperature Pulse Rate 72 75 Respiratory Rate 18 18 Blood Pressure Pulse Oximetry Exam Narrat
[2021-07-17] VITALS (14 sets, daily range): BP systolic 96–120; BP diastolic 73–82; PULSE 70–145; RESP 16–22; TEMP 36.6–37.3; O2SAT 90–100; BMI 17.6
--- NOTE | 2021-07-17 | ECHO_ITS ---
Patient Info Name: Siomn Barraza Age: 56 years : 1965 Gender: Male Ht: 69 in Wt: 119 lbs BSA: 1.61 m2 HR: 85 bpm BP: 103 / 82 mmHg Heart Rhythm: Sinus Rhythm Technical Quality: Other, Fair Exam Date: 07/17/2021 12:47 PM Exam Location: [facility] Card Pulmonary Patient Status: Inpatient Admit Date: 07/16/2021 Staff Ordering Physician: Yoselin Xiong PA-C Attending Provider: Yoselin Xiong PA-C Referring Physician: Inga HERNANDEZ; Exam Type: CA echo doppler w bubble study Study Info Complete two-dimensional, color flow and Doppler transthoracic echocardiogram is performed with agitated saline. Contrast/Agitated Saline Contrast/Ag. Saline: Agitated Saline Amount: 20.00 ml Administered By: Whitney Nelson RN Existing IV Access: Yes Summary 1. Left ventricular chamber dimension is normal. 2. Left ventricular systolic function is normal, estimated at 65-70%. 3. There is no increased left ventricular wall thickness. 4. The left ventricular diastolic function is grade I diastolic dysfunction. 5. Intact interatrial septum visualized by color flow and agitated saline imaging. 6. There is mild tricuspid valve regurgitation. 7. Mild pulmonary hypertension, estimated pulmonary arterial systolic pressure is 37 mmHg. Left Ventricle Left ventricular chamber dimension is normal. Left ventricular systolic function is normal, estimated at 65-70%. There is no increased left ventricular wall thickness. The left ventricular diastolic function is grade I diastolic dysfunction. Right Ventricle Right ventricular chamber dimension is mildly enlarged. Right ventricular systolic function is reduced. Left Atria Left atrial chamber dimension is normal. Right Atria Right atrial chamber dimension is normal. Atrial Septum Intact interatrial septum visualized by color flow and agitated saline imaging. Aortic Valve The aortic valve is trileaflet. There is mild aortic valve sclerosis. There is no aortic valve stenosis. There is trace aortic valve regurgitation. Pulmonic Valve The pulmonic valve is normal. There is no pulmonic valve stenosis. There is trace pulmonic regurgitation. Mitral Valve The mitral valve has normal leaflets. There is no mitral valve stenosis. There is trace mitral valve regurgitation. Tricuspid Valve The tricuspid valve leaflets are normal. There is no significant tricuspid valve stenosis. There is mild tricuspid valve regurgitation. Mild pulmonary hypertension, estimated pulmonary arterial systolic pressure is 37 mmHg. Pericardium/Pleural The pericardium appears normal. There is no pericardial effusion. Inferior Vena Cava Normal inferior vena cava with <50% collapse upon inspiration consistent with elevated right atrial pressure, 10 mmHg. Aorta The aortic root size at the sinus of Valsalva is normal. The prox ascending aorta size is normal. Left Ventricular Outflow Tract Name Value Normal LVOT 2D LVOT Diameter 2.0 cm LVOT Doppler LVOT Peak Gradient 4 mmHg LVOT Mean Gradie
[2021-07-17 00:08] LABS: Iron 34 ug/dL (49-181)
[2021-07-17 00:17] LABS: Percent Iron Saturation 19 % (20-50)
[2021-07-17] MEDS: ALBUTEROL SULFATE NEB 2.5 MG/0.5 ML INH 5 MG INHALATION ×4 (02:48→21:02)
[2021-07-17] MEDS: IPRATROPIUM BR 0.02% INH SOLN 0.5 MG/2.5 ML VIAL INHALATION ×4 (02:48→21:02)
[2021-07-17] MEDS: ASPIRIN 81 MG CHEWABLE TABLET PO (09:30)
[2021-07-17] MEDS: PANTOPRAZOLE SODIUM IV 40 MG VIAL IV PUSH ×2 (09:31→19:58)
[2021-07-17] MEDS: THIAMINE HCL 200 MG/2 ML VIAL 100 MG IV PUSH (09:31)
[2021-07-17] MEDS: CLOPIDOGREL BISULFATE 75 MG TABLET PO (09:31)
--- NOTE | 2021-07-17 09:35 | WPDNEURCNPN ---
Assessment and Plan Additional Plan evaluation up until now include the CTA of the head which documented small old infarcts in cerebellum bilaterally in addition to the right occipital lobe and left parietal and occipital lobes infarct and bilateral lacunar infarct of the basal ganglia otherwise no aneurysm or intracranial arterial stenosis, CT of the head documented no epidural or subdural bleed chest x-ray with emphysema and routine blood studies with anemia with MCV of 102.9 platelet count of 81 and urine culture pending so as the blood culture. At this stage she will need the supportive care ruling out the infections physical therapy evaluation and further care accordingly Consult date: 07/17/21 Time Seen: 09:30 HPI: Simon Barraza is a 56 year old male has been admitted to the hospital for the complaints of generalized weakness in addition to the ongoing history of 1. Hypertension 2. Tobacco dependence 3. Alcohol dependence and 4. Previous hospitalization he was unable to give any specific account of his problem at the time of initial evaluation further information was obtained from the medical records he was obviously covered with feces and urine and was extremely weak initial CT scan of the head documented acute infarct with abnormal UA and low potassium on the BMP and with hemoglobin of only 9 on CBC, patient does have ongoing history of 30 smoking pack years current everyday smoker current are everyday alcohol intake almost 4 drinks per week, reportedly he is on furosemide lisinopril with hydrochlorothiazide and potassium supplement Review of Systems Review of Systems: All systems reviewed & are unremarkable except as noted in HPI and below PMFSH Past Medical History Medical History Hypertension Tobacco dependence Surgical History Surgical History History of excision of testicular mass With benign histology. Family History Family History Father Chronic obstructive pulmonary disease Congestive heart failure Hypertension Mother Abdominal aortic aneurysm rupture Daughter Type 1 diabetes mellitus Social History Social History Social History: Surrogate decision maker: Bere Gisselletipjewelshoda, sister. Code status: Full code. Smoking packs per day: 1 Smoking cigarettes per day: 20.0 Years smoked: 30 Smoking pack-years: 30.00 Smoking status: Current every day smoker Tobacco type: cigarettes Alcohol intake: current Drinks per week: 4 Alcohol use details: 3 to 4 beers per week. Substance use: never Substance use type: does not use Additional living arrangements comments: The patient lives in [place] with his brother. They are both currently unemployed and are living on food stamps. Additional occupation/education comments: Currently unemployed. Gender identity (if verbalized by the patient): Male Spiritual care concerns: No Meds Home Medications and Allergies Home Medications Medication Instructions Recorded Confirmed Type furosemide 20 mg PO Q8HR #90 tablet 03/19/21 07/16/21 Rx potassium chloride [K-Tab] 40 meq PO DAILY@0800 #30 tablet 03/19/21 07/16/21 Rx lisinopril-hydrochlorothiazide 1 tablet PO DAILY 04/28/21 07/16/21 History Allergies Allergy/AdvReac Type Severity Reaction Status Date / Time amoxicillin Allergy Rash Verified 04/28/21 12:09 Vital Signs Vital Signs - 24 hr 07/16/21 17:15 07/16/21 17:27 07/16/21 17:28 Temperature 36.1 C L Pulse Rate 84 Respiratory Rate 16 34 H 21 H Blood Pressure 111/96 H 104/92 H Pulse Oximetry 97 07/16/21 17:30 07/16/21 17:31 07/16/21 17:45 Temperature Pulse Rate 92 91 83 Respiratory Rate 19 19 22 H Blood Pressure Pulse Oximetry 07/16/21 18:00 07/16/21 18:21 07/16
[2021-07-17 10:20] LABS: Basophils Percent Auto 0.2 % (0.2-1.2); Eosinophils Percent Auto 0.1 % (0-4.4); Hematocrit 28.1 % (42.0-52.0); Hemoglobin 9.3 g/dL (14.0-18.0); Immature Granulocyte Absolute 0.16 K/mm3 (0.00-0.031); Immature Granulocyte Percent A 1.2 % (0-0.5); Lymphocytes Absolute Auto 1.02 K/mm3 (0.9-3.2); Mean Corpuscular HGB Conc 33.1 g/dl (32-36); Mean Corpuscular Hemoglobin 34.7 pg (26-34); Mean Corpuscular Volume 104.9 fl (80-100); Mean Platelet Volume 10.6 fl (7.4-10.4); Monocytes Absolute Auto 1.3 K/mm3 (0.1-0.6); Monocytes Percent Auto 10.3 % (2.6-8.5); Neutrophils Absolute Auto 10.3 K/mm3 (1.3-6.7); Neutrophils Percent Auto 80.2 % (45.5-73.1); Nucleated Red Blood Cells Absolute Auto 0.1 K/mm3 (0.0-0.012); Nucleated Red Blood Cells Perc 1.1 % (0.0-0.2); Platelet Count Result 76 k/mm3 (150-375); Red Blood Count 2.68 M/mm3 (4.6-6.20); Red Cell Distribution Width 14.1 % (11.5-14.5); White Blood Count 12.8 K/mm3 (4.5-10.0)
[2021-07-17 10:21] LABS: Prothrombin Time 12.8 Seconds (11.1-14.7)
[2021-07-17 10:31] LABS: Alanine Aminotransferase 26 U/L (4-50); Albumin Level 2.4 g/dL (3.5-5.1); Alkaline Phosphatase 89 U/L (38-126); Anion Gap 7 mmol/L (8-16); Aspartate Amino Transferase 28 U/L (17-59); Bilirubin,Total 0.8 mg/dL (0.2-1.3); Blood Urea Nitrogen 53 mg/dL (9-20); Calcium 7.6 mg/dL (8.4-10.2); Carbon Dioxide 22 mmol/L (22-30); Chloride 104 mmol/L (98-107); Cholesterol 98 mg/dL (0-200); Estimated CRCL calculation 47 ml/min; Estimated Glomerular Filt Rate > 60; Glucose 118 mg/dL (65-110); HDL Direct 44 mg/dL; Potassium 3.1 mmol/L (3.4-5.0); Sodium 133 mmol/L (137-145); Triglycerides 97 mg/dL (<150)
[2021-07-17 10:32] LABS: Lactic Acid Reflex 2.3 mmol/L (0.7-2.1)
[2021-07-17 10:42] LABS: LDL Cholesterol Direct 31 mg/dL
--- NOTE | 2021-07-17 10:52 | PC.NURSE ---
patient returned from MRI
[2021-07-17] MEDS: POTASSIUM CHLORIDE 20 MEQ TABLET.ER 40 MEQ PO (11:00)
[2021-07-17 11:28] LABS: Magnesium 2.8 mg/dL (1.6-2.3); Phosphorus 3.6 mg/dL (2.5-4.5)
[2021-07-17 11:37] LABS: Folic Acid 17.5 ng/mL (2.76->20); Vitamin B12 > 1000.0 pg/mL (239-931)
[2021-07-17 12:30] LABS: Glucose Point of Care 132 mg/dl (65-105)
[2021-07-17] MEDS: LACTATED RINGERS 1,000 ML 75 ML IV CONT (12:58)
[2021-07-17 13:04] LABS: Reflex Lactic Acid Yes or No Add Lactic
[2021-07-17 13:50] LABS: Lactic Acid 3.1 mmol/L (0.7-2.1)
--- NOTE | 2021-07-17 14:28 | PM.IMPN ---
Progress Note: A&P Assessment and Plan (1) Acute ischemic stroke: Code(s): I63.9 - Cerebral infarction, unspecified Status: Acute Assessment and Plan: I was given permission by the patient to talk to his sister, Bere, about what is going on in the hospital. Severe alcoholism and has lived with his brother for the last 5 years after getting . The last year he has lost interested in everything, not eating much. He would still be active, talkative, and driving. He then began having issues with stepping up on the front porch step. Just recently it seemed like he gave, up and only laying on the couch. He couldn't even sit up on his own. day ate soup. Yesterday, he kept dropping his head and wouldn't feed himself. His sister fed him and it was like he was chewing his soup and confusion. He then developed SOB, and concerned and brought into the hospital. CT head on arrival showed infarcts in the right occipital lobe and left parietal and occipital lobes, likely acute. Old infarcts involving bilateral basal ganglia and cerebellum. MRI with and without contrast was obtained showing Acute infarcts involving the cerebellum, bilateral basal ganglia, and bilateral frontal, parietal, and occipital lobes. Mild nonspecific cerebral white matter disease, which likely represents chronic small vessel ischemic disease. In the emergency room the patient was started on baby aspirin and Plavix. I talked to the neurologist who evaluated him who recommends continuing aspirin 81 mg and Plavix 75 mg at this time, discontinue Plavix in 6 weeks and continue monotherapy at that time. CTA head and neck showing 0% stenosis of the proximal internal carotid arteries relative to normal distal artery lumen diameters (NASCET criteria). Echocardiogram with bubble study has been ordered and pending at this time. Will get Venous dopplers, the patient has been laying on the couch for weeks without getting up. Rule out DVT. * high suspicion the patient has paroxysmal atrial fibrillation or atrial flutter causing clots and conversion to normal sinus rhythm causing strokes. Telemetry at this time shows normal sinus rhythm 79 per, wide QRS complex, PVCs noted. No acute arrhythmia on tele at this time. PT OT and speech therapy have been consulted Continue monitoring neuro checks q.4 hours. Neurologist consult in place and appreciate their input. POA- Brother Jef. (2) Sepsis: Code(s): A41.9 - Sepsis, unspecified organism Status: Acute Assessment and Plan: Meets criteria for sepsis with elevated lactic acid level, elevated white blood cell count, tachycardia, and increased respiratory rate. Patient has been on IV ceftriaxone for UTI and abnormal Urinalysis and due to worsening WBC, Lactic acid and coughing during examination with strokes bilaterally I am concerned for aspiration. Placed NPO with a consult to Speech therapy to rule out aspiration. Antibiotics broadened to IV Zosyn today Pending blood culture, urine culture, sputum culture results Continue monitoring CBC diff daily Continue IV fluid hydration Continue monitoring make adjustments as needed. (3) UTI (urinary tract infection): Code(s): N39.0 - Urinary tract infection, site not specified Status: Acute (4) AMS (altered mental status): Code(s): R41.82 - Altered mental status, unspecified Status: Acute Assessment and Plan: Could be from UTI patient aspiration pneumonia versus acute strokes verses and alcoholism Seems to be slightly improved since arrival Continue antibiotics, pending urine culture, blood culture and sputum culture Continue monitoring. (5) Hypokalemia: Code(s): E87.6 - Hypokalemia Status: Acute Assessment and Plan: Most likely due to poor food intake Will repl
[2021-07-17] MEDS: FOLIC ACID 1 MG/0.2 ML INJ IV PUSH (14:57)
[2021-07-17] MEDS: POTASSIUM CHLORIDE 20 MEQ TABLET 40 MEQ PO (16:15)
--- NOTE | 2021-07-17 16:35 | PCSTNOTE ---
Please refer to the Bedside Swallow Evaluation in the EMR. Please note, silent aspiration cannot be ruled out at bedside.
[2021-07-17 16:44] LABS: D Dimer 2.15 ug/mL (<0.48)
[2021-07-17 18:06] LABS: Glucose Point of Care 132 mg/dl (65-105)
[2021-07-18] VITALS (15 sets, daily range): BP systolic 109–144; BP diastolic 64–99; PULSE 73–96; RESP 14–20; TEMP 36.3–37.2; O2SAT 90–100
[2021-07-18 01:58] LABS: Glucose Point of Care 103 mg/dl (65-105)
[2021-07-18] MEDS: IPRATROPIUM BR 0.02% INH SOLN 0.5 MG/2.5 ML VIAL INHALATION ×5 (02:30→20:44)
[2021-07-18] MEDS: ALBUTEROL SULFATE NEB 2.5 MG/0.5 ML INH 5 MG INHALATION ×4 (02:32→20:44)
[2021-07-18] MEDS: LACTATED RINGERS 1,000 ML 75 ML IV CONT (04:06)
[2021-07-18] MEDS: LORazepam INJ (*CRX) 2 MG/ML VIAL 1 MG IV PUSH (06:17)
[2021-07-18 06:23] LABS: Glucose Point of Care 120 mg/dl (65-105)
[2021-07-18 06:47] LABS: Basophils Percent Auto 0.2 % (0.2-1.2); Eosinophils Percent Auto 0.2 % (0-4.4); Hematocrit 24.5 % (42.0-52.0); Hemoglobin 7.7 g/dL (14.0-18.0); Immature Granulocyte Absolute 0.11 K/mm3 (0.00-0.031); Immature Granulocyte Percent A 1.2 % (0-0.5); Lymphocytes Absolute Auto 1.29 K/mm3 (0.9-3.2); Lymphocytes Percent Auto 14.2 % (18.3-44.2); Mean Corpuscular HGB Conc 31.4 g/dl (32-36); Mean Corpuscular Hemoglobin 34.1 pg (26-34); Mean Corpuscular Volume 108.4 fl (80-100); Mean Platelet Volume 11.7 fl (7.4-10.4); Monocytes Absolute Auto 1.2 K/mm3 (0.1-0.6); Monocytes Percent Auto 13.6 % (2.6-8.5); Neutrophils Absolute Auto 6.4 K/mm3 (1.3-6.7); Neutrophils Percent Auto 70.6 % (45.5-73.1); Nucleated Red Blood Cells Absolute Auto 0.1 K/mm3 (0.0-0.012); Nucleated Red Blood Cells Perc 0.7 % (0.0-0.2); Platelet Count Result 64 k/mm3 (150-375); Red Blood Count 2.26 M/mm3 (4.6-6.20); Red Cell Distribution Width 14.6 % (11.5-14.5); White Blood Count 9.1 K/mm3 (4.5-10.0)
[2021-07-18 07:48] LABS: Lactic Acid Reflex 1.1 mmol/L (0.7-2.1)
[2021-07-18 07:56] LABS: Alanine Aminotransferase 19 U/L (4-50); Albumin Level 1.9 g/dL (3.5-5.1); Alkaline Phosphatase 77 U/L (38-126); Anion Gap 5 mmol/L (8-16); Aspartate Amino Transferase 21 U/L (17-59); Bilirubin,Total 0.7 mg/dL (0.2-1.3); Blood Urea Nitrogen 46 mg/dL (9-20); Calcium 7.5 mg/dL (8.4-10.2); Carbon Dioxide 22 mmol/L (22-30); Chloride 111 mmol/L (98-107); Creatine Kinase 27 U/L (55-170); Estimated CRCL calculation 56 ml/min; Estimated Glomerular Filt Rate > 60; Glucose 111 mg/dL (65-110); Lipase 100 U/L (23-300); Magnesium 2.5 mg/dL (1.6-2.3); Phosphorus 3.5 mg/dL (2.5-4.5); Potassium 3.9 mmol/L (3.4-5.0); Sodium 138 mmol/L (137-145)
[2021-07-18 08:23] LABS: CRP 15.5 mg/dL (<1.0)
--- NOTE | 2021-07-18 09:34 | WPDNEUROPN ---
Objective Data Vital Signs Vital Signs: Vital Signs - 24 hr 07/17/21 12:00 07/17/21 13:53 07/17/21 14:01 Temperature 36.8 C Pulse Rate 104 H 94 92 Pulse Rate [Radial] 104 H Respiratory Rate 18 18 18 Blood Pressure 120/73 Pulse Oximetry 98 07/17/21 16:00 07/17/21 20:00 07/17/21 21:03 Temperature 36.6 C 37.3 C Pulse Rate 111 H 94 94 Pulse Rate [Radial] 93 Respiratory Rate 18 22 H 16 Blood Pressure 105/76 107/78 Pulse Oximetry 95 90 07/18/21 00:00 07/18/21 02:33 07/18/21 02:59 Temperature 37.2 C Pulse Rate 85 96 94 Pulse Rate [Radial] 85 Respiratory Rate 20 14 16 Blood Pressure 144/99 H Pulse Oximetry 90 07/18/21 04:00 07/18/21 06:17 07/18/21 09:32 Temperature 36.7 C Pulse Rate 76 92 Pulse Rate [Radial] 87 86 Respiratory Rate 20 16 Blood Pressure 114/72 Pulse Oximetry 91 Intake/Output Intake/Output: Intake & Output 07/15/21 07/16/21 07/17/21 07/18/21 23:59 23:59 23:59 23:59 Intake Total 1550 1833.2 1150 Balance 1550 1833.2 1150 Meds/Results Medications: Active Medications Generic Name Dose Route Start Last Admin Trade Name Freq PRN Reason Stop Dose Admin Albuterol 5 mg 07/16/21 20:00 07/18/21 09:32 Albuterol Sulfate Neb 2.5 Mg/0.5 Ml Inh INHALATION 5 mg Q6HRT [facility] Administration Aspirin 81 mg 07/17/21 08:00 07/17/21 09:30 Aspirin 81 Mg Chewable Tablet PO 81 mg DAILY@0800 [facility] Administration Chlordiazepoxide HCl 25 mg 07/17/21 09:37 Chlordiazepoxide (*Crx) 25 Mg Capsule PO Q6H PRN Withdrawal Clopidogrel Bisulfate 75 mg 07/18/21 09:00 Clopidogrel Bisulfate 75 Mg Tablet PO QAM [facility] Diphenhydramine HCl 25 mg 07/17/21 14:39 Diphenhydramine Hcl Inj 50 Mg/Ml Vial IV PUSH Q4H PRN Itching/rash/allergic reaction Folic Acid 1 mg 07/17/21 09:40 07/17/21 14:57 Folic Acid 1 Mg/0.2 Ml Inj IV PUSH 1 mg QAM [facility] Administration Lactated Ringer's 1,000 mls @ 50 mls/hr 07/16/21 19:50 07/18/21 06:16 Lr - Lactated Ringers Iv IV CONT 50 mls/hr .Q20H [facility] Infusion Piperacillin/Tazobactam/Dextrose 3.375 gm in 50 mls @ 100 mls/hr 07/17/21 16:00 07/18/21 05:57 Zosyn 3.375 Gm/D5w 50ml Pm IVPB Infused Q6HR [facility] Infusion Ipratropium Markle 0.5 mg 07/16/21 20:00 07/18/21 09:32 Ipratropium Br 0.02% Inh Soln 0.5 Mg/2.5 Ml Vial INHALATION 0.5 mg Q6HRT [facility] Administration Lorazepam 1 mg 07/17/21 09:37 07/18/21 06:17 Lorazepam Inj (*Crx) 2 Mg/Ml Vial IV PUSH 1 mg Q4H PRN Administration Withdrawal Ondansetron HCl 4 mg 07/17/21 09:37 Ondansetron Inj 4 Mg/2 Ml Vial IV PUSH Q6H PRN Nausea And Vomiting Pantoprazole Sodium 40 mg 07/17/21 21:00 07/17/21 19:58 Pantoprazole Sodium Iv 40 Mg Vial IV PUSH 40 mg Q12HR [facility] Administration Potassium Chloride 40 meq 07/17/21 09:40 07/17/21 11:00 Potassium Chloride 20 Meq Tablet.Er PO 40 meq DAILY@0800 [facility] Administration Thiamine HCl 100 mg 07/17/21 09:00 07/17/21 09:31 Thiamine Hcl 200 Mg/2 Ml Vial IV PUSH 100 mg QAM [facility] Administration Radiology Results: ITS Impressions Chest X-Ray 07/16/21 17:54 IMPRESSION: 1. Emphysema. Head/Neck CTA 07/16/21 19:22 IMPRESSION: 1. Infarct in the right occipital lobe and left parietal occipital lobes, likely acute. 2. 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 3. No aneurysm or significant intracranial arterial stenosis. 4. 0% stenosis of the proximal internal carotid arteries relative to normal distal artery lumen diameters (NASCET criteria). Brain MRI 07/17/21 10:46 IMPRESSION: 1. Acute infarcts involving the cerebellum, bilateral basal ganglia, and bilateral frontal, parietal, and occipital lobes. 2. Mild nonspecific cerebral white matter disease, which likely represents chronic small vessel ischemic disease. Venous Doppler Study 07/17/21 16:19 IMPRESSION: 1. Patent bilateral lower extre
[2021-07-18] MEDS: THIAMINE HCL 200 MG/2 ML VIAL 100 MG IV PUSH (09:49)
[2021-07-18] MEDS: PANTOPRAZOLE SODIUM IV 40 MG VIAL IV PUSH ×2 (09:49→21:38)
--- NOTE | 2021-07-18 10:46 | PCSTNOTE ---
Nursing reports patient is not arousing to stimuli. Evaluation will be on hold today. Therapist will discuss status with nurse tomorrow to determine if he would be able to actively participate in a communication evaluation.
[2021-07-18] MEDS: FOLIC ACID 1 MG/0.2 ML INJ IV PUSH (11:09)
--- NOTE | 2021-07-18 16:56 | P.PNIM_ITS ---
Progress Note: A&P Assessment and Plan (1) Acute ischemic stroke: Code(s): I63.9 - Cerebral infarction, unspecified Status: Acute Assessment and Plan: * Patient's sister noted many times of decline * CT head on arrival showed infarcts in the right occipital lobe and left parietal and occipital lobes, likely acute. Old infarcts involving bilateral basal ganglia and cerebellum. * MRI with and without contrast was obtained showing Acute infarcts involving the cerebellum, bilateral basal ganglia, and bilateral frontal, parietal, and occipital lobes. Mild nonspecific cerebral white matter disease, which likely represents chronic small vessel ischemic disease. * In the emergency room the patient was started on baby aspirin and Plavix. * neurology has been consulted thank you for your recommendations * neurologist who evaluated him who recommends continuing aspirin 81 mg and Plavix 75 mg at this time, discontinue Plavix in 6 weeks and continue monotherapy at that time. * CTA head and neck showing 0% stenosis of the proximal internal carotid arteries relative to normal distal artery lumen diameters (NASCET criteria). * Echocardiogram with bubble study EF of 65-70%, mild pulmonary hypertension, grade 1 diastolic dysfunction * Venous dopplers, no DVTs patent and open * patient could be going in and out of AFib * Telemetry tele monitor * PT OT and speech therapy have been consulted POA- Brother Jef. (2) Sepsis: Code(s): A41.9 - Sepsis, unspecified organism Status: Acute Assessment and Plan: * Meets criteria for sepsis with elevated lactic acid level, elevated white blood cell count, tachycardia, and increased respiratory rate. * IV ceftriaxone for UTI * worsening WBC, Lactic acid and coughing during examination with strokes bilaterally concerned with aspiration. * NPO with a consult to Speech therapy to rule out aspiration. * Antibiotics broadened to IV Zosyn * Pending blood culture * Urine culture found coag neg staph not saprophyti, * Continue IV fluid hydration (3) UTI (urinary tract infection): Code(s): N39.0 - Urinary tract infection, site not specified Status: Acute Assessment and Plan: * Urine culture found coag neg staph not saprophyti, * Zosyn 3.375 q6 IV * deescalate with sensitivities * strict I&Os (4) AMS (altered mental status): Code(s): R41.82 - Altered mental status, unspecified Status: Acute Assessment and Plan: * Could be from UTI patient aspiration pneumonia versus acute strokes verses and alcoholism * Seems to be slightly improved since arrival * Continue antibiotics * will check ammonia, possibly start lactulose (5) Hypokalemia: Code(s): E87.6 - Hypokalemia Status: Acute Assessment and Plan: * potassium 3.9 today * Will replenish as needed. * Continue monitoring daily. (6) Alcohol dependence: Code(s): F10.20 - Alcohol dependence, uncomplicated Status: Acute Assessment and Plan: * alcohol abuse for the last 8-12 years * unknown how much patient actually drinks per day * no alcoholic beverage in 1 week * no symptoms of withdrawal * CIWA protocol, folic acid, thiamine * Librium p.r.n. (7) Tobacco dependence: Code(s):
--- NOTE | 2021-07-18 16:56 | PM.IMPN ---
Progress Note: A&P Assessment and Plan (1) Acute ischemic stroke: Code(s): I63.9 - Cerebral infarction, unspecified Status: Acute Assessment and Plan: Patient's sister noted many times of decline CT head on arrival showed infarcts in the right occipital lobe and left parietal and occipital lobes, likely acute. Old infarcts involving bilateral basal ganglia and cerebellum. MRI with and without contrast was obtained showing Acute infarcts involving the cerebellum, bilateral basal ganglia, and bilateral frontal, parietal, and occipital lobes. Mild nonspecific cerebral white matter disease, which likely represents chronic small vessel ischemic disease. In the emergency room the patient was started on baby aspirin and Plavix. neurology has been consulted thank you for your recommendations neurologist who evaluated him who recommends continuing aspirin 81 mg and Plavix 75 mg at this time, discontinue Plavix in 6 weeks and continue monotherapy at that time. CTA head and neck showing 0% stenosis of the proximal internal carotid arteries relative to normal distal artery lumen diameters (NASCET criteria). Echocardiogram with bubble study EF of 65-70%, mild pulmonary hypertension, grade 1 diastolic dysfunction Venous dopplers, no DVTs patent and open patient could be going in and out of AFib Telemetry tele monitor PT OT and speech therapy have been consulted POA- Brother Jef. (2) Sepsis: Code(s): A41.9 - Sepsis, unspecified organism Status: Acute Assessment and Plan: Meets criteria for sepsis with elevated lactic acid level, elevated white blood cell count, tachycardia, and increased respiratory rate. IV ceftriaxone for UTI worsening WBC, Lactic acid and coughing during examination with strokes bilaterally concerned with aspiration. NPO with a consult to Speech therapy to rule out aspiration. Antibiotics broadened to IV Zosyn Pending blood culture Urine culture found coag neg staph not saprophyti, Continue IV fluid hydration (3) UTI (urinary tract infection): Code(s): N39.0 - Urinary tract infection, site not specified Status: Acute Assessment and Plan: Urine culture found coag neg staph not saprophyti, Zosyn 3.375 q6 IV deescalate with sensitivities strict I&Os (4) AMS (altered mental status): Code(s): R41.82 - Altered mental status, unspecified Status: Acute Assessment and Plan: Could be from UTI patient aspiration pneumonia versus acute strokes verses and alcoholism Seems to be slightly improved since arrival Continue antibiotics will check ammonia, possibly start lactulose (5) Hypokalemia: Code(s): E87.6 - Hypokalemia Status: Acute Assessment and Plan: potassium 3.9 today Will replenish as needed. Continue monitoring daily. (6) Alcohol dependence: Code(s): F10.20 - Alcohol dependence, uncomplicated Status: Acute Assessment and Plan: alcohol abuse for the last 8-12 years unknown how much patient actually drinks per day no alcoholic beverage in 1 week no symptoms of withdrawal CIWA protocol, folic acid, thiamine Librium p.r.n. (7) Tobacco dependence: Code(s): F17.200 - Nicotine dependence, unspecified, uncomplicated Status: Acute Assessment and Plan: States he smokes 1 pack per day. Nicotine patch as needed (8) Protein-calorie malnutrition, severe: Code(s): E43 - Unspecified severe protein-calorie malnutrition Status: Acute Assessment and Plan: Regular diet although patient a is partially dental might benefit from pureed diet or m
[2021-07-18 18:57] LABS: Glucose Point of Care 112 mg/dl (65-105)
[2021-07-18 21:59] LABS: Glucose Point of Care 110 mg/dl (65-105)
[2021-07-18] MEDS: LACTATED RINGERS 1,000 ML 50 ML IV CONT (23:44)
[2021-07-19] VITALS (15 sets, daily range): BP systolic 109–121; BP diastolic 67–87; PULSE 74–115; RESP 16–18; TEMP 36.2–36.6; O2SAT 96–100
[2021-07-19 00:20] LABS: Glucose Point of Care 105 mg/dl (65-105)
[2021-07-19 06:18] LABS: Basophils Percent Auto 0.5 % (0.2-1.2); Eosinophils Percent Auto 0.3 % (0-4.4); Hematocrit 21.9 % (42.0-52.0); Hemoglobin 7.1 g/dL (14.0-18.0); Immature Granulocyte Absolute 0.15 K/mm3 (0.00-0.031); Immature Granulocyte Percent A 2.4 % (0-0.5); Immature Platelet Fraction Pct 4.6 % (0.9-11.2); Lymphocytes Absolute Auto 1.27 K/mm3 (0.9-3.2); Lymphocytes Percent Auto 20.1 % (18.3-44.2); Mean Corpuscular HGB Conc 32.4 g/dl (32-36); Mean Corpuscular Hemoglobin 34.3 pg (26-34); Mean Corpuscular Volume 105.8 fl (80-100); Mean Platelet Volume 11.1 fl (7.4-10.4); Monocytes Percent Auto 15.3 % (2.6-8.5); Neutrophils Absolute Auto 3.9 K/mm3 (1.3-6.7); Neutrophils Percent Auto 61.4 % (45.5-73.1); Nucleated Red Blood Cells Absolute Auto 0.1 K/mm3 (0.0-0.012); Nucleated Red Blood Cells Perc 1.1 % (0.0-0.2); Platelet Count Result 55 k/mm3 (150-375); Red Blood Count 2.07 M/mm3 (4.6-6.20); Red Cell Distribution Width 14.6 % (11.5-14.5); White Blood Count 6.3 K/mm3 (4.5-10.0)
[2021-07-19 06:33] LABS: Glucose Point of Care 110 mg/dl (65-105)
[2021-07-19 06:39] LABS: Ammonia < 9 umol/L (9-30)
[2021-07-19 06:43] LABS: Alanine Aminotransferase 18 U/L (4-50); Alkaline Phosphatase 70 U/L (38-126); Anion Gap 5 mmol/L (8-16); Aspartate Amino Transferase 23 U/L (17-59); Bilirubin,Total 0.6 mg/dL (0.2-1.3); Blood Urea Nitrogen 29 mg/dL (9-20); Calcium 7.8 mg/dL (8.4-10.2); Carbon Dioxide 25 mmol/L (22-30); Chloride 109 mmol/L (98-107); Estimated CRCL calculation 69 ml/min; Estimated Glomerular Filt Rate > 60; Glucose 110 mg/dL (65-110); Magnesium 2.5 mg/dL (1.6-2.3); Potassium 3.3 mmol/L (3.4-5.0); Sodium 139 mmol/L (137-145)
[2021-07-19] MEDS: ALBUTEROL SULFATE NEB 2.5 MG/0.5 ML INH 5 MG INHALATION ×3 (08:13→21:02)
[2021-07-19] MEDS: IPRATROPIUM BR 0.02% INH SOLN 0.5 MG/2.5 ML VIAL INHALATION ×3 (08:13→21:03)
[2021-07-19] MEDS: LACTULOSE 20 GM/30 ML UDC PO ×3 (08:26→21:34)
[2021-07-19] MEDS: ASPIRIN 81 MG CHEWABLE TABLET PO (08:29)
[2021-07-19] MEDS: CLOPIDOGREL BISULFATE 75 MG TABLET PO (08:30)
[2021-07-19] MEDS: PANTOPRAZOLE SODIUM IV 40 MG VIAL IV PUSH ×2 (08:30→21:34)
[2021-07-19] MEDS: THIAMINE HCL 200 MG/2 ML VIAL 100 MG IV PUSH (08:30)
[2021-07-19] MEDS: POTASSIUM CHLORIDE 20 MEQ TABLET.ER 40 MEQ PO (08:30)
[2021-07-19] MEDS: FOLIC ACID 1 MG/0.2 ML INJ IV PUSH (08:32)
--- NOTE | 2021-07-19 09:44 | PCSTNOTE ---
Observed consistent coughing on thin liquids given water and medication at bedside. Recommend MBS but will not be completed until tomorrow to allow for NG tube/medication to improve arousal. Radiology aware of Hospitalist's desire to put off MBS until tomorrow. Patient to remain NPO until then. Communication Evaluation completed.
--- NOTE | 2021-07-19 10:34 | PCPTNOTE ---
Attempted to see pt for PT session at 10:30 am. RN request to hold PT at this time because pt will be leaving the floor soon for a swallow study. Will check back at a later time as schedule allows and pt is available.
[2021-07-19 12:21] LABS: Glucose Point of Care 111 mg/dl (65-105)
--- NOTE | 2021-07-19 14:03 | PCSTNOTE ---
Please refer to the Modified Barium Swallow Evaluation in the EMR.
--- NOTE | 2021-07-19 16:43 | WPDNEUROPN ---
Progress Note: A&P Additional Plan improving mental status medication will be continued as such will benefit from the physical therapy Review of Systems Review of Systems: All systems reviewed & are unremarkable except as noted in HPI and below Exam Narrative: remains awake and alert more cooperative this morning sitting in the chair following the instructions fairly well head normocephalic with no cranial bruit ear nose throat examination normal neck is supple with no cervical bruits heart regular lungs clear abdomen is soft neurological is awake alert follows instructions fairly well pupil round regular feels the vision full extraocular movements full face symmetrical tongue midline and motor examination revealed him to have decreased strength with hyperreflexia as sluggish ankle reflexes plantars only questionable and also gross ataxia and dysmetria Objective Data Vital Signs Vital Signs: Vital Signs - 24 hr 07/18/21 20:00 07/18/21 20:45 07/18/21 20:59 Temperature Pulse Rate 85 84 87 Pulse Rate [Radial] 86 Respiratory Rate 16 14 16 Blood Pressure 112/64 Pulse Oximetry 100 07/18/21 22:00 07/19/21 00:00 07/19/21 04:00 Temperature 36.6 C Pulse Rate 73 103 H 85 Pulse Rate [Radial] 86 86 Respiratory Rate 16 Blood Pressure 109/74 109/74 109/74 Pulse Oximetry 99 07/19/21 06:00 07/19/21 08:00 07/19/21 08:13 Temperature 36.2 C L Pulse Rate 95 99 81 Pulse Rate [Radial] Respiratory Rate 18 16 Blood Pressure 121/87 Pulse Oximetry 96 07/19/21 08:21 07/19/21 12:00 07/19/21 14:00 Temperature 36.3 C L Pulse Rate 85 115 H 107 H Pulse Rate [Radial] Respiratory Rate 16 16 Blood Pressure 115/81 Pulse Oximetry 100 07/19/21 14:04 07/19/21 14:16 Temperature Pulse Rate 83 80 Pulse Rate [Radial] Respiratory Rate 16 16 Blood Pressure Pulse Oximetry Intake/Output Intake/Output: Intake & Output 07/16/21 07/17/21 07/18/21 07/19/21 23:59 23:59 23:59 23:59 Intake Total 1550 1833.2 2250 370 Balance 1550 1833.2 2250 370 Meds/Results Medications: Active Medications Generic Name Dose Route Start Last Admin Trade Name Freq PRN Reason Stop Dose Admin Albuterol 5 mg 07/16/21 20:00 07/19/21 14:04 Albuterol Sulfate Neb 2.5 Mg/0.5 Ml Inh INHALATION 5 mg Q6HRT NESSA Administration Clopidogrel Bisulfate 75 mg 07/18/21 09:00 07/19/21 08:30 Clopidogrel Bisulfate 75 Mg Tablet PO 75 mg QAM NESSA Administration Diphenhydramine HCl 25 mg 07/17/21 14:39 Diphenhydramine Hcl Inj 50 Mg/Ml Vial IV PUSH Q4H PRN Itching/rash/allergic reaction Folic Acid 1 mg 07/17/21 09:40 07/19/21 08:32 Folic Acid 1 Mg/0.2 Ml Inj IV PUSH 1 mg QAM NESSA Administration Lactated Ringer's 1,000 mls @ 50 mls/hr 07/16/21 19:50 07/18/21 23:44 Lr - Lactated Ringers Iv IV CONT 50 mls/hr .Q20H NESSA Administration Levofloxacin/Dextrose 750 mg in 150 mls @ 100 mls/hr 07/19/21 09:30 07/19/21 13:43 Levaquin 750 Mg/D5w 150 Ml IVPB Infused DAILY NESSA Infusion Ipratropium [place] 0.5 mg 07/16/21 20:00 07/19/21 14:04 Ipratropium Br 0.02% Inh Soln 0.5 Mg/2.5 Ml Vial INHALATION 0.5 mg Q6HRT NESSA Administration Lorazepam 1 mg 07/17/21 09:37 07/18/21 06:17 Lorazepam Inj (*Crx) 2 Mg/Ml Vial IV PUSH 1 mg Q4H PRN Administration Withdrawal Ondansetron HCl 4 mg 07/17/21 09:37 Ondansetron Inj 4 Mg/2 Ml Vial IV PUSH Q6H PRN Nausea And Vomiting Pantoprazole Sodium 40 mg 07/17/21 21:00 07/19/21 08:30 Pantoprazole Sodium Iv 40 Mg Vial IV PUSH 40 mg Q12HR NESSA Administration Thiamine HCl 100 mg 07/17/21 09:00 07/19/21 08:30 Thiamine Hcl 200 Mg/2 Ml Vial IV PUSH 100 mg QAM NESSA Administration Radiology Results: ITS Impressions Chest X-Ray 07/16/21 17:54 IMPRESSION: 1. Emphysema. Head/Neck CTA 07/16/21 19:22 IMPRESSION: 1. Infarct in the right occipital lobe and left parietal occ
--- NOTE | 2021-07-19 16:45 | P.PNIM_ITS ---
Progress Note: A&P Assessment and Plan (1) Acute ischemic stroke: Code(s): I63.9 - Cerebral infarction, unspecified Status: Acute Assessment and Plan: * Patient's sister noted many times of decline * CT head on arrival showed infarcts in the right occipital lobe and left parietal and occipital lobes, likely acute. Old infarcts involving bilateral basal ganglia and cerebellum. * MRI with and without contrast was obtained showing Acute infarcts involving the cerebellum, bilateral basal ganglia, and bilateral frontal, parietal, and occipital lobes. Mild nonspecific cerebral white matter disease, which likely represents chronic small vessel ischemic disease. * aspirin and Plavix. * neurology has been consulted thank you for your recommendations * neurologist recommends continuing aspirin 81 mg and Plavix 75 mg and discontinue Plavix in 6 weeks and continue monotherapy at that time. * CTA head and neck showing 0% stenosis of the proximal internal carotid arteries relative to normal distal artery lumen diameters (NASCET criteria). * Echocardiogram with bubble study EF of 65-70%, mild pulmonary hypertension, grade 1 diastolic dysfunction * Venous dopplers, no DVTs patent and open * patient could be going in and out of AFib * Telemetry * PT OT and speech therapy have been consulted POA- Brother Jef. (2) Sepsis: Code(s): A41.9 - Sepsis, unspecified organism Status: Acute Assessment and Plan: * Meets criteria for sepsis with elevated lactic acid level, elevated white blood cell count, tachycardia, and increased respiratory rate. * IV ceftriaxone changed to levofloxacin 750mg IV * worsening WBC, Lactic acid and coughing during examination with strokes bilaterally concerned with aspiration. * NPO with a consult to Speech therapy to rule out aspiration. * Antibiotics broadened to IV Zosyn, and changed to Levofloxacin * blood culture no growth to date * Urine culture found coag neg staph not saprophyti, * Continue IV fluid hydration (3) UTI (urinary tract infection): Code(s): N39.0 - Urinary tract infection, site not specified Status: Acute Assessment and Plan: * Urine culture found coag neg staph not saprophyti, * Levaquin 750 Q day * strict I&Os (4) AMS (altered mental status): Code(s): R41.82 - Altered mental status, unspecified Status: Acute Assessment and Plan: * Better today than yesterday * Could be from UTI patient aspiration pneumonia versus acute strokes verses and alcoholism * Continue antibiotics * Ammonia less than 9 started lactulose for prophylactic (5) Hypokalemia: Code(s): E87.6 - Hypokalemia Status: Acute Assessment and Plan: * potassium 3.3 today * Replaced with 40 IV * Will replenish as needed. * Continue monitoring daily. (6) Alcohol dependence: Code(s): F10.20 - Alcohol dependence, uncomplicated Status: Acute Assessment and Plan: * alcohol abuse for the last 8-12 years * unknown how much patient actually drinks per day * no alcoholic beverage in 1 week * no symptoms of withdrawal * CIWA protocol, folic acid, thiamine * Librium p.r.n. (7) Tobacco dependence: Code(s): F17.200 - Nicotine dependence, unspecified, uncomplicate
--- NOTE | 2021-07-19 16:45 | PM.IMPN ---
Progress Note: A&P Assessment and Plan (1) Acute ischemic stroke: Code(s): I63.9 - Cerebral infarction, unspecified Status: Acute Assessment and Plan: Patient's sister noted many times of decline CT head on arrival showed infarcts in the right occipital lobe and left parietal and occipital lobes, likely acute. Old infarcts involving bilateral basal ganglia and cerebellum. MRI with and without contrast was obtained showing Acute infarcts involving the cerebellum, bilateral basal ganglia, and bilateral frontal, parietal, and occipital lobes. Mild nonspecific cerebral white matter disease, which likely represents chronic small vessel ischemic disease. aspirin and Plavix. neurology has been consulted thank you for your recommendations neurologist recommends continuing aspirin 81 mg and Plavix 75 mg and discontinue Plavix in 6 weeks and continue monotherapy at that time. CTA head and neck showing 0% stenosis of the proximal internal carotid arteries relative to normal distal artery lumen diameters (NASCET criteria). Echocardiogram with bubble study EF of 65-70%, mild pulmonary hypertension, grade 1 diastolic dysfunction Venous dopplers, no DVTs patent and open patient could be going in and out of AFib Telemetry PT OT and speech therapy have been consulted POA- Brother Jef. (2) Sepsis: Code(s): A41.9 - Sepsis, unspecified organism Status: Acute Assessment and Plan: Meets criteria for sepsis with elevated lactic acid level, elevated white blood cell count, tachycardia, and increased respiratory rate. IV ceftriaxone changed to levofloxacin 750mg IV worsening WBC, Lactic acid and coughing during examination with strokes bilaterally concerned with aspiration. NPO with a consult to Speech therapy to rule out aspiration. Antibiotics broadened to IV Zosyn, and changed to Levofloxacin blood culture no growth to date Urine culture found coag neg staph not saprophyti, Continue IV fluid hydration (3) UTI (urinary tract infection): Code(s): N39.0 - Urinary tract infection, site not specified Status: Acute Assessment and Plan: Urine culture found coag neg staph not saprophyti, Levaquin 750 Q day strict I&Os (4) AMS (altered mental status): Code(s): R41.82 - Altered mental status, unspecified Status: Acute Assessment and Plan: Better today than yesterday Could be from UTI patient aspiration pneumonia versus acute strokes verses and alcoholism Continue antibiotics Ammonia less than 9 started lactulose for prophylactic (5) Hypokalemia: Code(s): E87.6 - Hypokalemia Status: Acute Assessment and Plan: potassium 3.3 today Replaced with 40 IV Will replenish as needed. Continue monitoring daily. (6) Alcohol dependence: Code(s): F10.20 - Alcohol dependence, uncomplicated Status: Acute Assessment and Plan: alcohol abuse for the last 8-12 years unknown how much patient actually drinks per day no alcoholic beverage in 1 week no symptoms of withdrawal CIWA protocol, folic acid, thiamine Librium p.r.n. (7) Tobacco dependence: Code(s): F17.200 - Nicotine dependence, unspecified, uncomplicated Status: Acute Assessment and Plan: States he smokes 1 pack per day. Nicotine patch as needed (8) Protein-calorie malnutrition, severe: Code(s): E43 - Unspecified severe protein-calorie malnutrition Status: Acute Assessment and Plan: Speech eval found patient did have a minced and moist diet with thin liquids. lack of p.o. intake for 3 months Family thinks he has los
[2021-07-19 18:09] LABS: Glucose Point of Care 89 mg/dl (65-105)
[2021-07-19 21:47] LABS: Glucose Point of Care 94 mg/dl (65-105)
[2021-07-20] VITALS (23 sets, daily range): BP systolic 104–140; BP diastolic 62–94; PULSE 62–119; RESP 16–22; TEMP 36.4–37.4; O2SAT 90–100
[2021-07-20] MEDS: LACTATED RINGERS 1,000 ML 50 ML IV CONT (00:05)
[2021-07-20] MEDS: IPRATROPIUM BR 0.02% INH SOLN 0.5 MG/2.5 ML VIAL INHALATION ×4 (02:26→22:06)
[2021-07-20] MEDS: ALBUTEROL SULFATE NEB 2.5 MG/0.5 ML INH 5 MG INHALATION ×4 (02:26→22:06)
[2021-07-20 06:24] LABS: Hematocrit 22.5 % (42.0-52.0); Immature Platelet Fraction Pct 6.3 % (0.9-11.2); Mean Corpuscular HGB Conc 31.1 g/dl (32-36); Mean Corpuscular Hemoglobin 34.3 pg (26-34); Mean Corpuscular Volume 110.3 fl (80-100); Mean Platelet Volume 11.3 fl (7.4-10.4); Platelet Count Result 63 k/mm3 (150-375); Red Blood Count 2.04 M/mm3 (4.6-6.20); Red Cell Distribution Width 14.8 % (11.5-14.5); White Blood Count 6.7 K/mm3 (4.5-10.0)
[2021-07-20 06:46] LABS: Alanine Aminotransferase 19 U/L (4-50); Albumin Level 2.1 g/dL (3.5-5.1); Alkaline Phosphatase 71 U/L (38-126); Anion Gap 5 mmol/L (8-16); Aspartate Amino Transferase 23 U/L (17-59); Bilirubin,Total 0.5 mg/dL (0.2-1.3); Blood Urea Nitrogen 24 mg/dL (9-20); Calcium 7.8 mg/dL (8.4-10.2); Carbon Dioxide 23 mmol/L (22-30); Chloride 110 mmol/L (98-107); Estimated CRCL calculation 69 ml/min; Estimated Glomerular Filt Rate > 60; Glucose 92 mg/dL (65-110); Magnesium 2.3 mg/dL (1.6-2.3); Potassium 4.1 mmol/L (3.4-5.0); Sodium 138 mmol/L (137-145)
[2021-07-20 07:32] LABS: Methylmalonic Acid 344 nmol/L (87-318)
[2021-07-20 08:14] LABS: Glucose Point of Care 95 mg/dl (65-105)
[2021-07-20] MEDS: FOLIC ACID 1 MG/0.2 ML INJ IV PUSH (08:22)
[2021-07-20] MEDS: PANTOPRAZOLE SODIUM IV 40 MG VIAL IV PUSH ×2 (08:23→20:16)
[2021-07-20] MEDS: LACTULOSE 20 GM/30 ML UDC PO ×4 (08:23→20:15)
[2021-07-20] MEDS: THIAMINE HCL 200 MG/2 ML VIAL 100 MG IV PUSH (08:25)
--- NOTE | 2021-07-20 12:11 | PCNFU ---
Nutrition Follow-Up Complete: Underweight as related to inadequate energy intake as evidenced by BMI: 17.6 Goal: Adequate Intake of at least 75% of meals Progressing towards goal. We will continue current goal. Pt current nutrition is Minced and Moist,Level 5 Last recorded weight is 54 kg, no new weight to report. Bowel Motility:+BM 07/20 Labs Reviewed:Hgb 7.0,Hct 22.5,Alb 2.1,BUN 24 Meds Noted:Thiamine,Folic Acid,Protonix,Levaquin,Plavix,Atrovent,Lactulose. Additional Notes: Nutrition follow up. Patient had MBS on 07/20 recommending Minced and Moist, Level 5 diet. Oral Intake this morning eggs, biscuit and gravy. Diet supplements ordered Ensure Enlive TID providing an additional 350 kcals and 20 gms protein. Agree with diet orders. Monitoring: Will monitor every 5 days.
[2021-07-20 13:48] LABS: Red Blood Cell Folate 749 ng/mL RBC (>280)
[2021-07-20] MEDS: SODIUM CHLORIDE 0.9% IV 250 ML 30 ML IV CONT (16:23)
[2021-07-20] MEDS: FERROUS SULFATE 324 MG TABLET PO (17:25)
[2021-07-20] MEDS: TUBING, BLOOD PLUM PUMP TUBING 1 EACH XX (17:25)
[2021-07-20 20:51] LABS: IFOB Positive Control Positive; Immunochemical Fecal Occult Bl Negative (N)
[2021-07-21] VITALS (9 sets, daily range): BP systolic 107–138; BP diastolic 79–94; PULSE 66–100; RESP 14–20; TEMP 36.9–37.1; O2SAT 98–100
[2021-07-21] MEDS: LACTULOSE 20 GM/30 ML UDC PO ×5 (01:52→17:46)
[2021-07-21] MEDS: ALBUTEROL SULFATE NEB 2.5 MG/0.5 ML INH 5 MG INHALATION ×2 (02:35→08:25)
[2021-07-21] MEDS: IPRATROPIUM BR 0.02% INH SOLN 0.5 MG/2.5 ML VIAL INHALATION ×2 (02:35→08:25)
[2021-07-21 07:14] LABS: Hemoglobin 8.2 g/dL (14.0-18.0); Mean Corpuscular HGB Conc 31.5 g/dl (32-36); Mean Corpuscular Hemoglobin 33.2 pg (26-34); Mean Corpuscular Volume 105.3 fl (80-100); Mean Platelet Volume 11.6 fl (7.4-10.4); Platelet Count Result 62 k/mm3 (150-375); Red Blood Count 2.47 M/mm3 (4.6-6.20); White Blood Count 6.7 K/mm3 (4.5-10.0)
[2021-07-21 07:41] LABS: Alanine Aminotransferase 19 U/L (4-50); Albumin Level 2.1 g/dL (3.5-5.1); Alkaline Phosphatase 73 U/L (38-126); Anion Gap 4 mmol/L (8-16); Aspartate Amino Transferase 26 U/L (17-59); Bilirubin,Total 0.8 mg/dL (0.2-1.3); Blood Urea Nitrogen 18 mg/dL (9-20); Calcium 7.8 mg/dL (8.4-10.2); Carbon Dioxide 24 mmol/L (22-30); Chloride 113 mmol/L (98-107); Estimated CRCL calculation 78 ml/min; Estimated Glomerular Filt Rate > 60; Glucose 94 mg/dL (65-110); Potassium 3.7 mmol/L (3.4-5.0); Sodium 141 mmol/L (137-145)
[2021-07-21] MEDS: FOLIC ACID 1 MG/0.2 ML INJ IV PUSH (09:52)
[2021-07-21] MEDS: PANTOPRAZOLE SODIUM IV 40 MG VIAL IV PUSH (09:54)
[2021-07-21] MEDS: FERROUS SULFATE 324 MG TABLET PO ×2 (09:56→17:46)
[2021-07-21] MEDS: CLOPIDOGREL BISULFATE 75 MG TABLET PO (09:56)
[2021-07-21] MEDS: THIAMINE HCL 200 MG/2 ML VIAL 100 MG IV PUSH (09:56)
--- NOTE | 2021-07-21 14:20 | PCOTNOTE ---
Attempted to see patient this pm, however patient declined. Pt replied No, I'm okay. Thanks. Pt declined all OT activity at this time with No, I'm okay. and stated he wanted to stay up in the chair for a while longer.
--- NOTE | 2021-07-21 16:01 | P.DS_ITS ---
DS: Admitting Diagnosis Admitting Diagnosis Acute CVA/UTI/metabolic encephalopathy related to cirrhosis of liver DS: Discharge Diagnosis Discharge Diagnosis (1) Acute ischemic stroke: Code(s): I63.9 - Cerebral infarction, unspecified Status: Acute Assessment and Plan: * Patient's sister noted many times of decline * CT head on arrival showed infarcts in the right occipital lobe and left parietal and occipital lobes, likely acute. Old infarcts involving bilateral basal ganglia and cerebellum. * MRI with and without contrast was obtained showing Acute infarcts involving the cerebellum, bilateral basal ganglia, and bilateral frontal, parietal, and occipital lobes. Mild nonspecific cerebral white matter disease, which likely represents chronic small vessel ischemic disease. * aspirin and Plavix. * neurology has been consulted thank you for your recommendations * neurologist recommends continuing aspirin 81 mg and Plavix 75 mg and discontinue Plavix in 6 weeks and continue monotherapy at that time. * CTA head and neck showing 0% stenosis of the proximal internal carotid arteries relative to normal distal artery lumen diameters (NASCET criteria). * Echocardiogram with bubble study EF of 65-70%, mild pulmonary hypertension, grade 1 diastolic dysfunction * Venous dopplers, no DVTs patent and open * patient could be going in and out of AFib * Telemetry * PT OT and speech therapy have been consulted POA- Brother Jef. (2) Sepsis: Code(s): A41.9 - Sepsis, unspecified organism Status: Acute Assessment and Plan: * Meets criteria for sepsis with elevated lactic acid level, elevated white blood cell count, tachycardia, and increased respiratory rate. * IV ceftriaxone changed to levofloxacin 750mg IV * worsening WBC, Lactic acid and coughing during examination with strokes bilaterally concerned with aspiration. * NPO with a consult to Speech therapy to rule out aspiration. * Antibiotics broadened to IV Zosyn, and changed to Levofloxacin * blood culture no growth to date * Urine culture found coag neg staph not saprophyti, * Continue IV fluid hydration (3) UTI (urinary tract infection): Code(s): N39.0 - Urinary tract infection, site not specified Status: Acute Assessment and Plan: * Urine culture found coag neg staph not saprophyti, * Levaquin 750 Q day * strict I&Os (4) AMS (altered mental status): Code(s): R41.82 - Altered mental status, unspecified Status: Acute Assessment and Plan: * Better today than yesterday * Could be from UTI patient aspiration pneumonia versus acute strokes verses and alcoholism * Continue antibiotics * Ammonia less than 9 started lactulose for prophylactic (5) Hypokalemia: Code(s): E87.6 - Hypokalemia Status: Acute Assessment and Plan: * potassium 4.1 today * Replaced with 40 IV * Will replenish as needed. * Continue monitoring daily. (6) Alcohol dependence: Code(s): F10.20 - Alcohol dependence, uncomplicated Status: Acute Assessment and Plan: * alcohol abuse for the last 8-12 years * unknown how much patient actually drinks per day * no alcoholic beverage in 1 week * no symptoms of withdrawal * CIWA protocol, folic acid, thiamine * Librium p.r.n.
--- NOTE | 2021-07-21 16:01 | PM.DS ---
DS: Admitting Diagnosis Admitting Diagnosis Acute CVA/UTI/metabolic encephalopathy related to cirrhosis of liver DS: Discharge Diagnosis Discharge Diagnosis (1) Acute ischemic stroke: Code(s): I63.9 - Cerebral infarction, unspecified Status: Acute Assessment and Plan: Patient's sister noted many times of decline CT head on arrival showed infarcts in the right occipital lobe and left parietal and occipital lobes, likely acute. Old infarcts involving bilateral basal ganglia and cerebellum. MRI with and without contrast was obtained showing Acute infarcts involving the cerebellum, bilateral basal ganglia, and bilateral frontal, parietal, and occipital lobes. Mild nonspecific cerebral white matter disease, which likely represents chronic small vessel ischemic disease. aspirin and Plavix. neurology has been consulted thank you for your recommendations neurologist recommends continuing aspirin 81 mg and Plavix 75 mg and discontinue Plavix in 6 weeks and continue monotherapy at that time. CTA head and neck showing 0% stenosis of the proximal internal carotid arteries relative to normal distal artery lumen diameters (NASCET criteria). Echocardiogram with bubble study EF of 65-70%, mild pulmonary hypertension, grade 1 diastolic dysfunction Venous dopplers, no DVTs patent and open patient could be going in and out of AFib Telemetry PT OT and speech therapy have been consulted POA- Brother Jef. (2) Sepsis: Code(s): A41.9 - Sepsis, unspecified organism Status: Acute Assessment and Plan: Meets criteria for sepsis with elevated lactic acid level, elevated white blood cell count, tachycardia, and increased respiratory rate. IV ceftriaxone changed to levofloxacin 750mg IV worsening WBC, Lactic acid and coughing during examination with strokes bilaterally concerned with aspiration. NPO with a consult to Speech therapy to rule out aspiration. Antibiotics broadened to IV Zosyn, and changed to Levofloxacin blood culture no growth to date Urine culture found coag neg staph not saprophyti, Continue IV fluid hydration (3) UTI (urinary tract infection): Code(s): N39.0 - Urinary tract infection, site not specified Status: Acute Assessment and Plan: Urine culture found coag neg staph not saprophyti, Levaquin 750 Q day strict I&Os (4) AMS (altered mental status): Code(s): R41.82 - Altered mental status, unspecified Status: Acute Assessment and Plan: Better today than yesterday Could be from UTI patient aspiration pneumonia versus acute strokes verses and alcoholism Continue antibiotics Ammonia less than 9 started lactulose for prophylactic (5) Hypokalemia: Code(s): E87.6 - Hypokalemia Status: Acute Assessment and Plan: potassium 4.1 today Replaced with 40 IV Will replenish as needed. Continue monitoring daily. (6) Alcohol dependence: Code(s): F10.20 - Alcohol dependence, uncomplicated Status: Acute Assessment and Plan: alcohol abuse for the last 8-12 years unknown how much patient actually drinks per day no alcoholic beverage in 1 week no symptoms of withdrawal CIWA protocol, folic acid, thiamine Librium p.r.n. (7) Tobacco dependence: Code(s): F17.200 - Nicotine dependence, unspecified, uncomplicated Status: Acute Assessment and Plan: States he smokes 1 pack per day. Nicotine patch as needed (8) Protein-calorie malnutrition, severe: Code(s): E43 - Unspecified severe protein-calorie malnutrition Status: Acute Assessment and Plan: Speech eval found p
--- NOTE | 2021-07-21 16:36 | PCRCNOTE ---
patient did not receive treatment was having a speech therpay eval.
[2021-07-28 10:08] LABS: Glucose Point of Care 102 mg/dl (65-105)
[2021-07-28 13:59] LABS: Glucose Point of Care 77 mg/dl (65-105)
[2021-08-07 07:50] LABS: Glucose Point of Care 34 mg/dl (65-105)
== END 2021-07-21 18:18 | DRG 720 ==
LOC: ANHED 17:52 → ANH3MEDSUR 20:25
PROVIDERS: Nurse Practitioner; Admitting Provider Internal Medicine; Emergency Provider Emergency Medicine; PCP Family Medicine; Visit Provider Physician Assistant
DX: I63.9 Cerebral infarction, unspecified (principal); E43 Unspecified severe protein-calorie malnutrition; D53.9 Nutritional anemia, unspecified; E87.6 Hypokalemia; F10.20 Alcohol dependence, uncomplicated; R62.7 Adult failure to thrive; R53.1 Weakness; F17.210 Nicotine dependence, cigarettes, uncomplicated; A41.9 Sepsis, unspecified organism; N39.0 Urinary tract infection, site not specified; G93.41 Metabolic encephalopathy; K74.60 Unspecified cirrhosis of liver; D69.6 Thrombocytopenia, unspecified; Z79.899 Other long term (current) drug therapy
CPT/HCPCS: 36415; 36430; 70450; 70496; 70498; 70553; 71045; 76705; 80053; 80061; 80307; 81001; 82140; 82274; 82550; 82607; 82728; 82746; 82747; 82948; 83540; 83550; 83605; 83690; 83735; 83921; 84100; 84443; 84466; 85025; 85027; 85055; 85380; 85610; 85730; 86140; 86850; 86900; 86901; 86920; 87040; 87077; 87086; 87088; 87186; 92507; 92523; 92610; 92611; 93005; 93306; 93970; 94640; 96361; 96374; 96375; 97161; 97165; 97530; 97535; 99285; A9270; A9577; C9113; J0696; J1956; J2060; J2543; J3411; J3475; J3480; J7030; J7050; J7120; P9016; Q9967

== ENCOUNTER 2021-07-26 19:49 | Observation (INO) | payer OTHER, SELFPAY ==
[2021-07-26] VITALS (28 sets, daily range): BP systolic 86–126; BP diastolic 63–94; PULSE 87–141; RESP 13–23; TEMP 36.7; O2SAT 93–100
--- NOTE | ~2021-07-26 | XR_ITS ---
EXAMINATION: XR chest 1V portable DATE: 07/26/2021 21:28 INDICATION: Weakness. TECHNIQUE: A single frontal view of the chest was obtained. COMPARISON: Chest single views 07/16/2021, chest CT 04/28/2021 FINDINGS: The chest demonstrates clear lungs without pneumonia, pleural effusion, or pneumothorax. Th e heart size is normal. IMPRESSION: 1. No acute cardiopulmonary disease. Reviewed, dictated and finalized at location A.
--- NOTE | 2021-07-26 20:09 | ECG_ITS ---
Measurements Intervals [place] Rate: 93 P: [place]: 0 QRS: -45 QRSD: 143 T: 4 QT: 383 QTc: 476 Interpretive Statements SINUS RHYTHM RIGHT BUNDLE BRANCH BLOCK BASELINE ARTIFACT- I, II, III, AVR, AVL, AVF, V1-V6 ABNORMAL ECG Electronically Signed On 07-27-2021 6:19:00 CDT by James Cox D.O.
[2021-07-26 20:10] LABS: Glucose Point of Care 183 mg/dl (65-105)
[2021-07-26 20:31] LABS: Basophils Absolute Auto 0.1 K/mm3 (0.0-0.1); Basophils Percent Auto 0.7 % (0.2-1.2); Eosinophils Absolute Auto 0.1 K/mm3 (0-0.3); Eosinophils Percent Auto 0.6 % (0-4.4); Hematocrit 29.6 % (42.0-52.0); Hemoglobin 9.7 g/dL (14.0-18.0); Immature Granulocyte Absolute 0.14 K/mm3 (0.00-0.031); Immature Granulocyte Percent A 1.2 % (0-0.5); Mean Corpuscular HGB Conc 32.8 g/dl (32-36); Mean Corpuscular Hemoglobin 33.3 pg (26-34); Mean Corpuscular Volume 101.7 fl (80-100); Mean Platelet Volume 9.5 fl (7.4-10.4); Monocytes Percent Auto 8.5 % (2.6-8.5); Neutrophils Absolute Auto 8.6 K/mm3 (1.3-6.7); Platelet Count Result 182 k/mm3 (150-375); Red Blood Count 2.91 M/mm3 (4.6-6.20); Red Cell Distribution Width 15.2 % (11.5-14.5); White Blood Count 11.4 K/mm3 (4.5-10.0)
[2021-07-26 20:46] LABS: Alanine Aminotransferase 17 U/L (4-50); Albumin Level 2.1 g/dL (3.5-5.1); Alkaline Phosphatase 75 U/L (38-126); Anion Gap 11 mmol/L (8-16); Aspartate Amino Transferase 35 U/L (17-59); Bilirubin,Total 0.7 mg/dL (0.2-1.3); Blood Urea Nitrogen 9 mg/dL (9-20); Calcium 7.5 mg/dL (8.4-10.2); Carbon Dioxide 23 mmol/L (22-30); Chloride 98 mmol/L (98-107); Estimated CRCL calculation 96 ml/min; Estimated Glomerular Filt Rate > 60; Glucose 162 mg/dL (65-110); Potassium 2.7 mmol/L (3.4-5.0); Sodium 132 mmol/L (137-145)
[2021-07-26] MEDS: SODIUM CHLORIDE 0.9% IV 1,000 ML 999 ML IV CONT (20:50)
--- NOTE | 2021-07-26 20:50 | PC.NURSE ---
Per PEDRO Garcia via verbal order read-back, infuse 1L normal saline bolus.
[2021-07-26 21:42] LABS: Magnesium 1.7 mg/dL (1.6-2.3)
[2021-07-26 22:28] LABS: Magnesium 1.6 mg/dL (1.6-2.3)
--- NOTE | 2021-07-26 22:31 | PM.IMHP ---
H&P: HPI History of Present Illness Date/Time: 07/26/21 22:31 Chief Complaint: Low potassium Narrative: This is a 56-year-old male with past medical history significant for alcohol dependence, multiple strokes, severe protein calorie malnutrition, megaloblastic anemia, thrombocytopenia. Patient was just recently discharged from our center to half-way he was brought in today due to low potassium and low glycemic level as well. Upon talking to the patient he states that his blood pressure was also low dose why he is in the hospital he knows that this is [facility]. Preliminary workup was significant for systolic in the 90s a potassium of 2.7 magnesium of 1.6 a sodium of 132 and urinalysis was significant for numerous wbc's. Patient can not really give much history. Review of Systems Review of Systems: I was brought here due to low blood pressure low potassium ROS unobtainable: Yes unobtainable due to medical condition (Likely dementia with multiple strokes and alcohol abuse) PMFSH Past Medical History Medical History Hypertension Tobacco dependence Surgical History Surgical History History of excision of testicular mass With benign histology. Family History Family History Father Chronic obstructive pulmonary disease Congestive heart failure Hypertension Mother Abdominal aortic aneurysm rupture Daughter Type 1 diabetes mellitus Social History Social History Social History: Surrogate decision maker: Bere Gagnon, sister. Code status: Full code. Smoking packs per day: 1 Smoking cigarettes per day: 20.0 Years smoked: 35 Smoking pack-years: 35.00 Smoking status: Current some day smoker Tobacco type: cigarettes Alcohol intake: current Drinks per week: 4 Alcohol use details: 3 to 4 beers per week. Substance use: never Substance use type: does not use Additional living arrangements comments: The patient lives in [place] with his brother. They are both currently unemployed and are living on food stamps. Additional occupation/education comments: Currently unemployed. Gender identity (if verbalized by the patient): Male Spiritual care concerns: No Meds Home Medications and Allergies Home Medications Medication Instructions Recorded Confirmed Type albuterol sulfate 2 puff INHALATION QID PRN #8.5 g 07/21/21 07/27/21 Rx clopidogrel 75 mg PO QAM 42 Days #42 tablet 07/21/21 07/27/21 Rx folic acid 1 mg PO DAILY #30 tablet 07/21/21 07/27/21 Rx lactulose 30 g PO BID #1500 ml 07/21/21 07/27/21 Rx levofloxacin 750 mg PO DAILY #7 tablet 07/21/21 07/27/21 Rx pantoprazole [Protonix] 40 mg PO BID #60 ea 07/21/21 07/27/21 Rx thiamine HCl (vitamin B1) 100 mg PO DAILY #30 tablet 07/21/21 07/27/21 Rx ferrous sulfate 324 mg PO BID 07/27/21 07/27/21 History hydrochlorothiazide 12.5 mg PO DAILY 07/27/21 07/27/21 History levothyroxine 25 mcg PO DAILY 07/27/21 07/27/21 History lisinopril 20 mg PO DAILY 07/27/21 07/27/21 History Allergies Allergy/AdvReac Type Severity Reaction Status Date / Time amoxicillin Allergy Rash Verified 04/28/21 12:09 Vital Signs Vital Signs - 24 hr 07/26/21 19:56 07/26/21 20:35 07/26/21 20:45 Pulse Rate Respiratory Rate 20 19 Blood Pressure 86/74 L Pulse Oximetry 07/26/21 20:46 07/26/21 21:00 07/26/21 21:03 Pulse Rate Respiratory Rate 17 17 17 Blood Pressure 95/73 L 126/83 Pulse Oximetry 97 07/26/21 21:15 07/26/21 21:16 07/26/21 21:30 Pulse Rate 88 92 Respiratory Rate 16 14 18 Blood Pressure 97/63 L 112/81 Pulse Oximetry 100 07/26/21 21:31 07/26/21 21:45 Pulse Rate 92 91 Respiratory Rate 20 23 H Blood Pressure Pulse Oximetry 100 Exam Narrative: Laying in
--- NOTE | 2021-07-26 22:43 | PC.NURSE ---
Patient knows the need for a urine analysis, states he is going to try again.
--- NOTE | 2021-07-26 23:08 | ED.GENADULT ---
HPI - General Adult General Chief complaint: Recheck/Abnormal Lab/Rx Stated complaint: low BS, low potassium, hypotension Time Seen by Provider: 07/26/21 20:21 Source: patient and EMS Mode of arrival: EMS Limitations: dementia History of Present Illness HPI narrative: 56-year-old [facility] resident with a history of CVA, failure to thrive, hypertension, hypothyroidism, hyperkalemia was [facility] the [facility] with complaints of of low potassium levels of 2.5 and also was found to be hypotensive and hypoglycemic. Upon arrival to the ER patient is alert awake denies any complaints. No history of nausea or vomiting or diarrhea. Onset (ago): hour(s) (2) Associated symptoms: denies other symptoms Related Data Home Medications Medication Instructions Recorded Confirmed lisinopril-hydrochlorothiazide 1 tablet PO DAILY 04/28/21 07/16/21 Allergies Allergy/AdvReac Type Severity Reaction Status Date / Time amoxicillin Allergy Rash Verified 04/28/21 12:09 Review of Systems Review of Systems: ROS unobtainable: Yes unobtainable due to mental status PMFSH Past Medical History Medical History Hypertension Tobacco dependence Surgical History Surgical History History of excision of testicular mass With benign histology. Family History Family History Father Chronic obstructive pulmonary disease Congestive heart failure Hypertension Mother Abdominal aortic aneurysm rupture Daughter Type 1 diabetes mellitus Social History Social History Social History: Surrogate decision maker: Bere Rushjewelshoda, sister. Code status: Full code. Smoking packs per day: 1 Smoking cigarettes per day: 20.0 Years smoked: 30 Smoking pack-years: 30.00 Smoking status: Current every day smoker Tobacco type: cigarettes Alcohol intake: current Drinks per week: 4 Alcohol use details: 3 to 4 beers per week. Substance use: never Substance use type: does not use Additional living arrangements comments: The patient lives in [place] with his brother. They are both currently unemployed and are living on food stamps. Additional occupation/education comments: Currently unemployed. Gender identity (if verbalized by the patient): Male Spiritual care concerns: No Exam Narrative: GENERAL: Well-appearing, thin, and in no acute distress. HEAD: Normocephalic, atraumatic. EYES: PERRLA and EOMI. ENT: Nares clear, no rhinorrhea or epistaxis. Mucous membranes moist. NECK: Supple. CHEST: Clear to auscultation. No respiratory distress. HEART: Regular rate and rhythm. No murmur heard. Normal peripheral pulses. ABDOMEN: Soft, nontender, nondistended, normal active bowel sounds. EXTREMITIES: Normal range of motion. No edema. Multiple ecchymotic spots on the upper extremities. SKIN: Warm, dry, no rash. NEURO: No focal deficits. Alert . PSYCH: Normal mood and affect. Course Course Emergency Course: Inform patient about his lab work. Will admit him to the hospital for hydration and correction of his potassium. Discussed with Dr. Velasquez agreed to admit the patient. Vital Signs Vital signs: Vital Signs Temperature 36.7 C 07/26/21 19:56 Pulse Rate 87 07/26/21 19:56 Respiratory Rate 13 07/26/21 19:56 Blood Pressure 86/74 L 07/26/21 19:56 Pulse Oximetry 93 07/26/21 19:56 Temperature 36.7 C 07/26/21 19:56 Pulse Rate 93 07/26/21 22:31 Respiratory Rate 16 07/26/21 22:31 Blood Pressure 106/94 H 07/26/21 22:31 Pulse Oximetry 97 07/26/21 22:16 Medical Decision Making Vital Signs Vital Signs: Vital Signs Temperature 36.7 C 07/26/21 19:56 Pulse Rate 87 07/26/21 19:56 Respiratory Rate 07/26/21 19:56 Blood Pressure 86/74 L 09
[2021-07-26 23:48] LABS: Add Urine Microscopic? YES; Appearance Urine Cloudy (Clear); Bacteria Urine Trace /hpf; Bilirubin Urine Negative (Negative); Blood Urine Negative (Negative); Budding Yeast Urine Present /hpf; Color Urine Yellow (Yellow); Glucose Urine UA Negative (Negative); Ketones Urine Negative (Negative); Leukocyte Esterase Ur 2+ LEU/UL (Negative); Mucus Urine Heavy /lpf; Nitrate Urine Negative (Negative); Protein Urine 1+ mg/dL (Negative); RBC Urine >75 /hpf (0-2); Specific Grav Ur 1.015 (1.001-1.035); Squamous Epithelial Cell Urine Rare /hpf (Few); Urobilinogen Urine Negative mg/dL (<2.0); WBC Urine >75 /hpf
[2021-07-27] VITALS (9 sets, daily range): BP systolic 82–110; BP diastolic 61–93; PULSE 67–108; RESP 16–18; TEMP 36.2–36.7; O2SAT 92–98; BMI 16.7
--- NOTE | 2021-07-27 01:18 | ADMGEN ---
This patient, Simon Barraza, was admitted to Medical Room 241-01. Patient/family oriented to hospital policies and general routines including ID bracelet, bed and alarms, visiting hours, pain management, procedures, bathroom and other care routines, personal items, smoking policy, room service/diet, and visiting hours. Information on how to activate the Rapid Response Team has been discussed. Patient/Family are encouraged to report perceived risks to care and to ask questions if they do not understand what they are told or what they should do.
[2021-07-27] MEDS: SODIUM CHLORIDE 0.9% IV 500 ML IV CONT (06:22)
[2021-07-27] MEDS: MAGNESIUM SULF 2 GM/WATER 50ML 2 GM/50 ML BAG IVPB (06:22)
[2021-07-27] MEDS: LEVOTHYROXINE SODIUM 25 MCG TABLET PO (06:23)
[2021-07-27 06:40] LABS: Anion Gap 6 mmol/L (8-16); Blood Urea Nitrogen 8 mg/dL (9-20); Calcium 6.9 mg/dL (8.4-10.2); Carbon Dioxide 24 mmol/L (22-30); Chloride 100 mmol/L (98-107); Estimated CRCL calculation 110 ml/min; Estimated Glomerular Filt Rate > 60; Glucose 116 mg/dL (65-110); Potassium 2.7 mmol/L (3.4-5.0); Sodium 130 mmol/L (137-145)
[2021-07-27 07:03] LABS: Glucose Point of Care 92 mg/dl (65-105)
[2021-07-27] MEDS: CALCIUM GLUCONATE 1,000 MG/10 ML VIAL 1000 MG IV PUSH (07:56)
[2021-07-27] MEDS: PANTOPRAZOLE 40 MG TABLET PO ×2 (08:56→16:39)
[2021-07-27] MEDS: FOLIC ACID 1 MG TABLET PO (08:56)
[2021-07-27] MEDS: POTASSIUM CHLORIDE 20 MEQ TABLET.ER PO (08:56)
[2021-07-27] MEDS: CYANOCOBALAMIN 1,000 MCG TABLET 1000 MCG PO (08:56)
[2021-07-27] MEDS: LACTULOSE 20 GM/30 ML UDC PO (08:56)
[2021-07-27] MEDS: CLOPIDOGREL BISULFATE 75 MG TABLET PO (08:56)
[2021-07-27] MEDS: FERROUS SULFATE 324 MG TABLET PO ×2 (08:56→16:39)
[2021-07-27] MEDS: THIAMINE HCL 100 MG TABLET PO (08:57)
[2021-07-27] MEDS: SILVERGEL (ELTA) 45 ML 1 APPLIC TOPICAL (10:33)
[2021-07-27 13:42] LABS: Calcium 7.3 mg/dL (8.4-10.2); Magnesium 2.3 mg/dL (1.6-2.3); Potassium 3.1 mmol/L (3.4-5.0)
--- NOTE | 2021-07-27 13:43 | PM.IMPN ---
Progress Note: A&P Assessment and Plan (1) UTI (urinary tract infection): Code(s): N39.0 - Urinary tract infection, site not specified Status: Acute Assessment and Plan: UA noted. UCx on a previous admission grew coagulase negative Staph which was resistant to oxacillin so he was started on vancomycin on admission. Will add Rocephin today and follow up on UCx results. Deescalate antibiotics when able. (2) Macrocytic anemia: Code(s): D53.9 - Nutritional anemia, unspecified Status: Acute Assessment and Plan: B12>1000 and Folate 17.4 but MMA 344 last month. Elevated MCV likely secondary to alcohol abuse. Elevated MMA noted but unlikely B12 deficiency. Will check HIV. (3) Electrolyte abnormality: Code(s): E87.8 - Other disorders of electrolyte and fluid balance, not elsewhere classified Status: Acute Assessment and Plan: Patient with hypokalemia and hyponatremia. Calcium is low but related to low albumin. Will replace potassium and repeat levels later. He is having diarrhea so will stop laculose - could be contributing to his electolyte abnormalities (4) Protein-calorie malnutrition, severe: Code(s): E43 - Unspecified severe protein-calorie malnutrition Status: Acute Assessment and Plan: Diet resumed. Ate only 20% of breakfast. Patient is on minced and moist regular diet. Continue supplements. Continue to moniotr intake (5) Alcohol dependence: Code(s): F10.20 - Alcohol dependence, uncomplicated Status: Acute Assessment and Plan: Patient was educated about the benefits of not drinking alcohol. Continue thiamine and folate. (6) Tobacco dependence: Code(s): F17.200 - Nicotine dependence, unspecified, uncomplicated Status: Acute Assessment and Plan: Patient was educated about the benefits of not using tobacco products (7) Adult failure to thrive: Code(s): R62.7 - Adult failure to thrive Status: Acute Assessment and Plan: Etiology unclear why he has poor oral intake. Related to the CVAs? Continue supportive care. PT/OT ordered. Increase activity (8) Stroke: Code(s): I63.9 - Cerebral infarction, unspecified Status: Acute Assessment and Plan: Brain MRI on 07/17 showing scattered acute infarcts in the cerebellum, bilateral basal ganglia, and bilateral frontal, parietal, and occipital lobes, worst in the occipital lobes and left parietal lobe. Echo showing EF 65-70% with Grade I diastolic dysfunction and an intact interatrial septum. Telemetry noted and no obvious evidence of AFib by monitor. Continue Plavix. Very weak so will hold off on statin therapy at this time. (9) DVT prophylaxis: Code(s): Z29.9 - Encounter for prophylactic measures, unspecified Status: Acute Assessment and Plan: SCDs Subjective Date/time seen: 07/27/21 13:43 Interval history: 56yo male with hx of alcohol dependence, CVAs, severe protein calorie malnutrition, megaloblastic anemia and thrombocytopenia here for low potassium and hypoglycemia Patietn 'feeling good'. Still weak in the legs. No n/v and actually has an appetite. Was living with his brother prior to last admission. No CP or SOB. Having loose stools. Spoke with wallpaper consultant: Patient has multiple skin tears in the UE and heel and coccyx ulcers Exam Narrative: AF 97.6 110/68 93 18 98% ra Gen - thin, cachetic male in NARD sitting up in bed Chest - decreased BS in the bases, nml RR CV - RRR S1/S2; Tele showing artifact but no significant dysrhythmias Abd - soft, ND, +BS Ext - trace periankle edema Psych - alert, appropriate Skin - multiple UE, torso and neck bruising with bilateral UE skin tears with dressings in place Objective Data Vital Signs Vital Signs: Vital Signs - 24 hr 07/26/21 19:56 07/26/21 20:35 07/26/21 20:45 Temperature 98.1 F Pulse Rate 87 Respiratory Rate 13 20 19
[2021-07-27] MEDS: POTASSIUM CHLORIDE 20 MEQ TABLET 40 MEQ PO (16:38)
[2021-07-27 18:06] LABS: Glucose Point of Care 116 mg/dl (65-105)
[2021-07-28] VITALS (9 sets, daily range): BP systolic 98–117; BP diastolic 56–81; PULSE 79–107; RESP 16–20; TEMP 36.3–37.1; O2SAT 93–97
[2021-07-28 00:29] LABS: Glucose Point of Care 91 mg/dl (65-105)
[2021-07-28] MEDS: LEVOTHYROXINE SODIUM 25 MCG TABLET PO (06:07)
[2021-07-28 06:13] LABS: Basophils Absolute Auto 0.1 K/mm3 (0.0-0.1); Basophils Percent Auto 0.8 % (0.2-1.2); Eosinophils Absolute Auto 0.1 K/mm3 (0-0.3); Eosinophils Percent Auto 0.7 % (0-4.4); Hematocrit 26.5 % (42.0-52.0); Hemoglobin 8.5 g/dL (14.0-18.0); Immature Granulocyte Absolute 0.12 K/mm3 (0.00-0.031); Immature Granulocyte Percent A 0.9 % (0-0.5); Lymphocytes Absolute Auto 1.21 K/mm3 (0.9-3.2); Lymphocytes Percent Auto 9.4 % (18.3-44.2); Mean Corpuscular HGB Conc 32.1 g/dl (32-36); Mean Corpuscular Hemoglobin 33.5 pg (26-34); Mean Corpuscular Volume 104.3 fl (80-100); Mean Platelet Volume 9.7 fl (7.4-10.4); Monocytes Absolute Auto 0.8 K/mm3 (0.1-0.6); Monocytes Percent Auto 6.3 % (2.6-8.5); Neutrophils Absolute Auto 10.6 K/mm3 (1.3-6.7); Neutrophils Percent Auto 81.9 % (45.5-73.1); Platelet Count Result 199 k/mm3 (150-375); Red Blood Count 2.54 M/mm3 (4.6-6.20); Red Cell Distribution Width 15.1 % (11.5-14.5); White Blood Count 12.9 K/mm3 (4.5-10.0)
[2021-07-28 06:17] LABS: Glucose Point of Care 80 mg/dl (65-105)
[2021-07-28 06:22] LABS: Alanine Aminotransferase 18 U/L (4-50); Albumin Level 1.8 g/dL (3.5-5.1); Alkaline Phosphatase 92 U/L (38-126); Anion Gap 2 mmol/L (8-16); Aspartate Amino Transferase 44 U/L (17-59); Bilirubin,Total 0.2 mg/dL (0.2-1.3); Blood Urea Nitrogen 8 mg/dL (9-20); Calcium 7.4 mg/dL (8.4-10.2); Carbon Dioxide 23 mmol/L (22-30); Chloride 106 mmol/L (98-107); Estimated CRCL calculation 94 ml/min; Estimated Glomerular Filt Rate > 60; Glucose 104 mg/dL (65-110); Magnesium 2.1 mg/dL (1.6-2.3); Phosphorus 2.9 mg/dL (2.5-4.5); Potassium 3.9 mmol/L (3.4-5.0); Sodium 131 mmol/L (137-145)
[2021-07-28 07:51] LABS: HIV 1/2 Ab P24 Ag Result Negative (Negative)
[2021-07-28] MEDS: THIAMINE HCL 100 MG TABLET PO (08:13)
[2021-07-28] MEDS: POTASSIUM CHLORIDE 20 MEQ TABLET.ER PO (08:13)
[2021-07-28] MEDS: CLOPIDOGREL BISULFATE 75 MG TABLET PO (08:13)
[2021-07-28] MEDS: PANTOPRAZOLE 40 MG TABLET PO ×2 (08:13→18:04)
[2021-07-28] MEDS: FOLIC ACID 1 MG TABLET PO (08:13)
[2021-07-28] MEDS: SILVERGEL (ELTA) 45 ML 1 APPLIC TOPICAL (08:14)
[2021-07-28] MEDS: FERROUS SULFATE 324 MG TABLET PO ×2 (08:14→18:04)
--- NOTE | 2021-07-28 12:00 | PC.NURSE ---
BG checked at 1153 07/28/21. Value of 77. Did not upload to chart.
--- NOTE | 2021-07-28 16:26 | PM.IMPN ---
Progress Note: A&P Assessment and Plan (1) UTI (urinary tract infection): Code(s): N39.0 - Urinary tract infection, site not specified Status: Acute Assessment and Plan: UA noted. UCx on a previous admission grew coagulase negative Staph which was resistant to oxacillin so he was started on vancomycin on admission. Rocephin added. UCx still pending. Deescalate antibiotics when able. (2) Macrocytic anemia: Code(s): D53.9 - Nutritional anemia, unspecified Status: Acute Assessment and Plan: B12>1000 and Folate 17.4 but MMA 344 last month. Elevated MCV likely secondary to alcohol abuse. Elevated MMA noted but unlikely B12 deficiency. Hgb low but stable. Follow. (3) Electrolyte abnormality: Code(s): E87.8 - Other disorders of electrolyte and fluid balance, not elsewhere classified Status: Acute Assessment and Plan: Patient with hypokalemia and hyponatremia. Calcium is low but related to low albumin. Sodium low but stable. Potassium, Mg and Phos normal. Follow and replace as needed. (4) Protein-calorie malnutrition, severe: Code(s): E43 - Unspecified severe protein-calorie malnutrition Status: Acute Assessment and Plan: Diet resumed but eating only 20% of meals. Patient is on minced and moist, Level 5 regular diet. Continue supplements. Continue to monitor intake. Add Megace. (5) Alcohol dependence: Code(s): F10.20 - Alcohol dependence, uncomplicated Status: Acute Assessment and Plan: Patient was educated about the benefits of not drinking alcohol. Continue thiamine and folate. (6) Tobacco dependence: Code(s): F17.200 - Nicotine dependence, unspecified, uncomplicated Status: Acute Assessment and Plan: Patient was educated about the benefits of not using tobacco products (7) Adult failure to thrive: Code(s): R62.7 - Adult failure to thrive Status: Acute Assessment and Plan: Etiology unclear why he has poor oral intake. Related to the CVAs? Continue supportive care. PT/OT ordered. Increase activity. Add megace (8) Stroke: Code(s): I63.9 - Cerebral infarction, unspecified Status: Acute Assessment and Plan: Brain MRI on 07/17 showing scattered acute infarcts in the cerebellum, bilateral basal ganglia, and bilateral frontal, parietal, and occipital lobes, worst in the occipital lobes and left parietal lobe. Echo showing EF 65-70% with Grade I diastolic dysfunction and an intact interatrial septum. Telemetry noted and no obvious evidence of AFib by monitor. Continue Plavix. Add statin therapy when his weakness begins to improve. (9) DVT prophylaxis: Code(s): Z29.9 - Encounter for prophylactic measures, unspecified Status: Acute Assessment and Plan: SCDs Subjective Date/time seen: 07/28/21 16:26 Interval history: 56yo male with hx of alcohol dependence, CVAs, severe protein calorie malnutrition, megaloblastic anemia and thrombocytopenia here for low potassium and hypoglycemia Patient feels well. Slept okay. No CP or SOB. No n/v. He states he is eating better this morning(but discussed with RN later in the day and he is refusing meals now). Exam Narrative: AF 97.6 113/72 90 20 97% ra Gen - NARD Chest - distant clear BS, nml RR CV - RRR S1/S2; Tele showing artifact, PVCs Abd - soft, ND, +BS Ext - trace periankle edema Psych - alert, appropriate Skin - multiple UE, torso and neck bruising with bilateral UE skin tears with dressings in place Objective Data Vital Signs Vital Signs: Vital Signs - 24 hr 07/27/21 20:00 07/27/21 21:35 07/28/21 00:00 Temperature 98.1 F 97.4 F L Pulse Rate 101 H 108 H 91 Respiratory Rate 16 16 Blood Pressure 102/75 102/64 Pulse Oximetry 92 97 07/28/21 04:00 07/28/21 05:45 07/28/21 08:00 Temperature 98.1 F Pulse Rate 79 93 81 Respiratory Rate 16 Blood Pressure 117/8
[2021-07-28 16:47] LABS: Vancomycin Trough 16.8 ug/mL (10.0-20.0)
--- NOTE | 2021-07-28 17:45 | PC.NURSE ---
BG of 62. Patient refused glucose oral gel. Patient drank apple juice, ensure, and is eating dinner. Will reassess BG per protocol
[2021-07-28 17:48] LABS: Glucose Point of Care 62 mg/dl (65-105)
[2021-07-28] MEDS: MEGESTROL ACETATE (*CHEMO) ORAL SUSP 40 MG/ML SYR 400 MG PO (18:04)
[2021-07-28 18:14] LABS: Glucose Point of Care 53 mg/dl (65-105)
[2021-07-28] MEDS: GLUCOSE ORAL GEL 15 GM OF GLUCSE IN 37.5 GM TUBE PO (18:16)
[2021-07-28 18:32] LABS: Glucose Point of Care 40 mg/dl (65-105)
[2021-07-28] MEDS: DEXTROSE 50% 25 GM/50 ML SYRINGE IV PUSH (18:37)
[2021-07-28] MEDS: DEXTROSE 5%/0.9% SOD CHL 1,000 ML 75 ML IV CONT (18:45)
[2021-07-28 18:50] LABS: Glucose Point of Care 185 mg/dl (65-105)
[2021-07-28 18:59] LABS: Creatinine Urine 118.1 mg/dL; Total Protein Urine Random 20 mg/dL; Ur Ttl Prot Creatinine Ratio 0.17 mg/mg (0-0.20)
[2021-07-28 20:55] LABS: Glucose Point of Care 121 mg/dl (65-105)
[2021-07-29] VITALS (8 sets, daily range): BP systolic 94–127; BP diastolic 63–83; PULSE 76–113; RESP 12–20; TEMP 35.8–37.1; O2SAT 93–100
[2021-07-29 00:25] LABS: Glucose Point of Care 84 mg/dl (65-105)
[2021-07-29] MEDS: LEVOTHYROXINE SODIUM 25 MCG TABLET PO (05:32)
[2021-07-29 05:39] LABS: Glucose Point of Care 99 mg/dl (65-105)
[2021-07-29 06:59] LABS: Hematocrit 27.4 % (42.0-52.0); Hemoglobin 7.9 g/dL (14.0-18.0); Mean Corpuscular HGB Conc 28.8 g/dl (32-36); Mean Corpuscular Hemoglobin 33.8 pg (26-34); Mean Corpuscular Volume 117.1 fl (80-100); Mean Platelet Volume 9.8 fl (7.4-10.4); Platelet Count Result 188 k/mm3 (150-375); Red Blood Count 2.34 M/mm3 (4.6-6.20); White Blood Count 9.8 K/mm3 (4.5-10.0)
[2021-07-29 07:15] LABS: Albumin Level 1.7 g/dL (3.5-5.1); Anion Gap 1 mmol/L (8-16); Blood Urea Nitrogen 13 mg/dL (9-20); Calcium 7.1 mg/dL (8.4-10.2); Carbon Dioxide 21 mmol/L (22-30); Chloride 106 mmol/L (98-107); Estimated CRCL calculation 110 ml/min; Estimated Glomerular Filt Rate > 60; Glucose 88 mg/dL (65-110); Magnesium 2.1 mg/dL (1.6-2.3); Phosphorus 2.7 mg/dL (2.5-4.5); Potassium 4.2 mmol/L (3.4-5.0); Sodium 128 mmol/L (137-145)
[2021-07-29] MEDS: FERROUS SULFATE 324 MG TABLET PO ×2 (07:55→16:25)
[2021-07-29] MEDS: MEGESTROL ACETATE (*CHEMO) ORAL SUSP 40 MG/ML SYR 400 MG PO ×2 (07:55→16:25)
[2021-07-29] MEDS: PANTOPRAZOLE 40 MG TABLET PO ×2 (07:55→16:25)
[2021-07-29] MEDS: THIAMINE HCL 100 MG TABLET PO (07:55)
[2021-07-29] MEDS: POTASSIUM CHLORIDE 20 MEQ TABLET.ER PO (07:56)
[2021-07-29] MEDS: CLOPIDOGREL BISULFATE 75 MG TABLET PO (07:56)
[2021-07-29] MEDS: FOLIC ACID 1 MG TABLET PO (07:56)
[2021-07-29] MEDS: SILVERGEL (ELTA) 45 ML 1 APPLIC TOPICAL (07:57)
[2021-07-29] MEDS: DEXTROSE 5%/0.9% SOD CHL 1,000 ML 75 ML IV CONT (08:10)
[2021-07-29 08:42] LABS: Glucose Point of Care 79 mg/dl (65-105)
--- NOTE | 2021-07-29 09:42 | PCOTNOTE ---
Attempted to see patient at this time for skilled OT session. Patient alert and lying in bed upon entry with breakfast tray in front of him. Patient declined participation in therapy at this time d/t eating breakfast and stated he would try later. Will attempt to see patient for a second time this date. Continue per POC.
--- NOTE | 2021-07-29 11:36 | PC.NURSE ---
I, the CT SCAN TECHNICIAN, and PT attempted to get pt up but he refused and stated he was too weak this morning; pt later spoke with his sister and was more willing to try to get out of bed; PT was able to assist pt into chair but required/recommended 2 assist and the [place]; will continue to monitor
--- NOTE | 2021-07-29 11:47 | PM.IMPN ---
Progress Note: A&P Assessment and Plan (1) UTI (urinary tract infection): Code(s): N39.0 - Urinary tract infection, site not specified Status: Acute Assessment and Plan: Urinalysis suggestive of possible infection. Culture grew yeast only. Currently asymptomatic Stop antibiotics Monitor symptoms (2) Macrocytic anemia: Code(s): D53.9 - Nutritional anemia, unspecified Status: Acute Assessment and Plan: B12>1000 and Folate 17.4 but MMA 344 last month. Elevated MCV likely secondary to alcohol abuse. (3) Electrolyte abnormality: Code(s): E87.8 - Other disorders of electrolyte and fluid balance, not elsewhere classified Status: Acute Assessment and Plan: Hypokalemia, replaced Hyponatremia, chronic, in the setting of alcohol intake, poor solute intake - Check urine osmolality sodium, and potassium - Check thyroid and cortisol (4) Protein-calorie malnutrition, severe: Code(s): E43 - Unspecified severe protein-calorie malnutrition Status: Acute Assessment and Plan: Diet resumed. Patient is on minced and moist regular diet. Continue supplements. Continue to monitor intake. Dietitian consult. (5) Alcohol dependence: Code(s): F10.20 - Alcohol dependence, uncomplicated Status: Acute Assessment and Plan: Educated about alcohol avoidance. Continue thiamine and folate. (6) Tobacco dependence: Code(s): F17.200 - Nicotine dependence, unspecified, uncomplicated Status: Acute Assessment and Plan: Educated about smoking cessation. (7) Adult failure to thrive: Code(s): R62.7 - Adult failure to thrive Status: Acute Assessment and Plan: Etiology unclear why he has poor oral intake. Related to the CVAs? Continue supportive care. PT/OT ordered. Increase activity (8) Stroke: Code(s): I63.9 - Cerebral infarction, unspecified Status: Acute Assessment and Plan: Brain MRI on 07/17 showing scattered acute infarcts in the cerebellum, bilateral basal ganglia, and bilateral frontal, parietal, and occipital lobes, worst in the occipital lobes and left parietal lobe. Echo showing EF 65-70% with Grade I diastolic dysfunction and an intact interatrial septum. No AFib by tele monitor. Continue Plavix. Initiate Atorvastatin. (9) DVT prophylaxis: Code(s): Z29.9 - Encounter for prophylactic measures, unspecified Status: Acute Assessment and Plan: SCDs Subjective Date/time seen: 07/29/21 11:48 No major issues last night. No nausea or vomiting. Hemodynamically stable. Afebrile. Reports no bowel movement since admission. Appetite fluctuates but remains somewhat poor. Review of Systems Review of Systems: All systems reviewed & are unremarkable except as noted in HPI and below Exam Narrative: Gen: Alert, NAD Abd: Soft, mild TTP diffusely, ND Heart: RRR Lungs: CTAB Ext: No lower extremity edema Objective Data Vital Signs Vital Signs: Vital Signs - 24 hr 07/28/21 12:00 07/28/21 14:00 07/28/21 16:00 Temperature 97.6 F Pulse Rate 107 H 90 96 Respiratory Rate 20 Blood Pressure 113/72 Pulse Oximetry 97 07/28/21 20:00 07/29/21 00:00 07/29/21 04:00 Temperature 98.8 F 98.8 F 97.9 F Pulse Rate 101 H 89 85 Respiratory Rate 18 20 18 Blood Pressure 98/56 L 106/66 104/72 Pulse Oximetry 93 93 98 07/29/21 08:00 07/29/21 10:00 Temperature 97.1 F L Pulse Rate 93 85 Respiratory Rate 12 Blood Pressure 97/67 L Pulse Oximetry 97 Intake/Output Intake/Output: Intake & Output 07/26/21 07/27/21 07/28/21 07/29/21 23:59 23:59 23:59 23:59 Intake Total 1000 2470 1770 1800 Balance 1000 2470 1770 1800 Meds/Results Medications: Active Medications Generic Name Dose Route Start Last Admin Trade Name Freq PRN Reason Stop Dose Admin Albuterol 2 puff 07/27/21 02:38 Albuterol Sulfate (*Sp) Aerosol 1 Puff
--- NOTE | 2021-07-29 12:16 | PCOTNOTE ---
Attempted to see patient for s second time to complete OT session this PM. Patient alert and seated in chair at bedside upon entry. Patient declined participation in OT session stating, I'm sorry to blow you off, but I'm really just not feeling up to it. Per RN and METEOROLOGICAL OBSERVER, patient's blood sugar is low. Will continue per POC.
[2021-07-29 12:32] LABS: Glucose Point of Care 95 mg/dl (65-105)
[2021-07-29 16:36] LABS: Glucose Point of Care 78 mg/dl (65-105)
[2021-07-29] MEDS: DEXTROSE 5%/0.9% SOD CHL 1,000 ML 100 ML IV CONT (21:26)
[2021-07-29] MEDS: ATORVASTATIN 20 MG TABLET PO (21:26)
[2021-07-29 21:28] LABS: Glucose Point of Care 135 mg/dl (65-105)
[2021-07-30] VITALS (7 sets, daily range): BP systolic 90–113; BP diastolic 66–75; PULSE 86–102; RESP 18–20; TEMP 35.9–36.6; O2SAT 94–100
[2021-07-30 00:13] LABS: Glucose Point of Care 90 mg/dl (65-105)
[2021-07-30 05:43] LABS: Sodium Urine Random 30 meq/L
[2021-07-30 05:57] LABS: Potassium Urine Random 70.7 meq/L
[2021-07-30] MEDS: LEVOTHYROXINE SODIUM 25 MCG TABLET PO (06:12)
[2021-07-30 06:19] LABS: Glucose Point of Care 79 mg/dl (65-105)
[2021-07-30] MEDS: DEXTROSE 5%/0.9% SOD CHL 1,000 ML 100 ML IV CONT (06:39)
[2021-07-30 07:32] LABS: Glucose Point of Care 96 mg/dl (65-105)
[2021-07-30 08:05] LABS: Basophils Absolute Auto 0.1 K/mm3 (0.0-0.1); Basophils Percent Auto 1.2 % (0.2-1.2); Eosinophils Absolute Auto 0.1 K/mm3 (0-0.3); Eosinophils Percent Auto 0.9 % (0-4.4); Hematocrit 24.4 % (42.0-52.0); Hemoglobin 7.9 g/dL (14.0-18.0); Immature Granulocyte Absolute 0.09 K/mm3 (0.00-0.031); Lymphocytes Absolute Auto 1.55 K/mm3 (0.9-3.2); Lymphocytes Percent Auto 16.9 % (18.3-44.2); Mean Corpuscular HGB Conc 32.4 g/dl (32-36); Mean Corpuscular Hemoglobin 33.5 pg (26-34); Mean Corpuscular Volume 103.4 fl (80-100); Mean Platelet Volume 9.7 fl (7.4-10.4); Monocytes Percent Auto 11.1 % (2.6-8.5); Neutrophils Absolute Auto 6.3 K/mm3 (1.3-6.7); Neutrophils Percent Auto 68.9 % (45.5-73.1); Platelet Count Result 200 k/mm3 (150-375); Red Blood Count 2.36 M/mm3 (4.6-6.20); Red Cell Distribution Width 15.1 % (11.5-14.5); White Blood Count 9.2 K/mm3 (4.5-10.0)
[2021-07-30 08:06] LABS: Anion Gap -1 mmol/L (8-16); Blood Urea Nitrogen 16 mg/dL (9-20); Carbon Dioxide 22 mmol/L (22-30); Chloride 107 mmol/L (98-107); Estimated CRCL calculation 94 ml/min; Estimated Glomerular Filt Rate > 60; Glucose 159 mg/dL (65-110); Sodium 128 mmol/L (137-145)
[2021-07-30 08:37] LABS: Cortisol Random 9.69 ug/dL
--- NOTE | 2021-07-30 10:07 | PM.IMPN ---
Progress Note: A&P Assessment and Plan (1) UTI (urinary tract infection): Code(s): N39.0 - Urinary tract infection, site not specified Status: Acute Assessment and Plan: Urinalysis suggestive of possible infection. Culture grew yeast only. Currently asymptomatic Stop antibiotics Monitor symptoms (2) Macrocytic anemia: Code(s): D53.9 - Nutritional anemia, unspecified Status: Acute Assessment and Plan: B12>1000 and Folate 17.4 but MMA 344 last month. Elevated MCV likely secondary to alcohol abuse. (3) Electrolyte abnormality: Code(s): E87.8 - Other disorders of electrolyte and fluid balance, not elsewhere classified Status: Acute Assessment and Plan: Hypokalemia, replaced Hyponatremia, chronic, in the setting of alcohol intake, poor solute intake - Check urine osmolality sodium, and potassium - Thyroid and cortisol wnl (4) Protein-calorie malnutrition, severe: Code(s): E43 - Unspecified severe protein-calorie malnutrition Status: Acute Assessment and Plan: Diet resumed. Patient is on minced and moist regular diet. Continue supplements. Continue to monitor intake. Dietitian consult. (5) Alcohol dependence: Code(s): F10.20 - Alcohol dependence, uncomplicated Status: Acute Assessment and Plan: Educated about alcohol avoidance. Continue thiamine and folate. (6) Tobacco dependence: Code(s): F17.200 - Nicotine dependence, unspecified, uncomplicated Status: Acute Assessment and Plan: Educated about smoking cessation. (7) Adult failure to thrive: Code(s): R62.7 - Adult failure to thrive Status: Acute Assessment and Plan: Etiology unclear why he has poor oral intake. Related to the CVAs? Continue supportive care. PT/OT ordered. Increase activity (8) Stroke: Code(s): I63.9 - Cerebral infarction, unspecified Status: Acute Assessment and Plan: Brain MRI on 07/17 showing scattered acute infarcts in the cerebellum, bilateral basal ganglia, and bilateral frontal, parietal, and occipital lobes, worst in the occipital lobes and left parietal lobe. Echo showing EF 65-70% with Grade I diastolic dysfunction and an intact interatrial septum. No AFib by tele monitor. Continue Plavix. Initiated Atorvastatin. (9) DVT prophylaxis: Code(s): Z29.9 - Encounter for prophylactic measures, unspecified Status: Acute Assessment and Plan: SCDs Subjective Date/time seen: 07/30/21 10:07 More alert and interactive this morning. Denies any issues last night. Reports appetite improving. Hemodynamically stable. Afebrile. Review of Systems Review of Systems: All systems reviewed & are unremarkable except as noted in HPI and below Exam Narrative: Gen: Alert, NAD Abd: Soft, mild TTP diffusely, ND Heart: RRR Lungs: CTAB Ext: No lower extremity edema Objective Data Vital Signs Vital Signs: Vital Signs - 24 hr 07/29/21 12:00 07/29/21 14:00 07/29/21 19:35 Temperature 96.4 F L 97.8 F Pulse Rate 113 H 76 104 H Respiratory Rate 12 17 Blood Pressure 97/68 L 94/63 L Pulse Oximetry 100 100 07/29/21 23:52 07/30/21 00:00 07/30/21 03:29 Temperature 98.1 F 97.4 F L Pulse Rate 102 H 102 H 92 Respiratory Rate 18 18 Blood Pressure 127/83 113/75 Pulse Oximetry 100 100 07/30/21 04:00 Temperature Pulse Rate 86 Respiratory Rate Blood Pressure Pulse Oximetry Intake/Output Intake/Output: Intake & Output 07/27/21 07/28/21 07/29/21 07/30/21 23:59 23:59 23:59 23:59 Intake Total 2470 1770 3790 1200 Output Total 300 Balance 2470 1770 3790 900 Meds/Results Medications: Active Medications Generic Name Dose Route Start Last Admin Trade Name Freq PRN Reason Stop Dose Admin Albuterol 2 puff 07/27/21 02:38 Albuterol Sulfate (*Sp) Aerosol 1 Puff INHALATION QID PRN shortness of breath o
--- NOTE | 2021-07-30 10:37 | PCPTNOTE ---
Patient participated in LE exercise interventions and minimal bed mobility. Patient refused sitting EOB, transfers, and gait. Patient educated in the importance of participating in transfers and gait. Patient voices understanding but continues to decline increased activity. Patient encouraged to participate in standing to relieve buttock pressure to decrease c/o pain. Patient continued to refuse.
[2021-07-30] MEDS: PANTOPRAZOLE 40 MG TABLET PO (10:47)
[2021-07-30] MEDS: MEGESTROL ACETATE (*CHEMO) ORAL SUSP 40 MG/ML SYR 400 MG PO (10:47)
[2021-07-30] MEDS: FERROUS SULFATE 324 MG TABLET PO (10:47)
[2021-07-30] MEDS: THIAMINE HCL 100 MG TABLET PO (10:47)
[2021-07-30] MEDS: FOLIC ACID 1 MG TABLET PO (10:47)
[2021-07-30] MEDS: POTASSIUM CHLORIDE 20 MEQ TABLET.ER PO (10:47)
[2021-07-30] MEDS: CLOPIDOGREL BISULFATE 75 MG TABLET PO (10:47)
[2021-07-30] MEDS: SILVERGEL (ELTA) 45 ML 1 APPLIC TOPICAL (10:48)
[2021-07-30] MEDS: SODIUM CHLORIDE 1 GM TABLET PO ×2 (11:02→12:23)
[2021-07-30 12:14] LABS: Glucose Point of Care 88 mg/dl (65-105)
--- NOTE | 2021-07-30 12:28 | PM.DS ---
DS: Admitting Diagnosis Admitting Diagnosis Hypokalemia Hypoglycemia DS: Discharge Diagnosis Discharge Diagnosis (1) UTI (urinary tract infection): Code(s): N39.0 - Urinary tract infection, site not specified Status: Acute Assessment and Plan: Urinalysis suggestive of possible infection. Culture grew yeast only. Currently asymptomatic Stop antibiotics Monitor symptoms (2) Macrocytic anemia: Code(s): D53.9 - Nutritional anemia, unspecified Status: Acute Assessment and Plan: B12>1000 and Folate 17.4 but MMA 344 last month. Elevated MCV likely secondary to alcohol abuse. (3) Electrolyte abnormality: Code(s): E87.8 - Other disorders of electrolyte and fluid balance, not elsewhere classified Status: Acute Assessment and Plan: Hypokalemia, replaced, now resolved Hyponatremia, chronic, in the setting of alcohol intake, poor solute intake. Continue salt tablets, can be discontinued once his oral solute intake improves. (4) Protein-calorie malnutrition, severe: Code(s): E43 - Unspecified severe protein-calorie malnutrition Status: Acute Assessment and Plan: Diet resumed. Patient is on minced and moist regular diet. Continue supplements. Continue to monitor intake. Continue Megace. (5) Alcohol dependence: Code(s): F10.20 - Alcohol dependence, uncomplicated Status: Acute Assessment and Plan: Educated about alcohol avoidance. Continue thiamine and folate. (6) Tobacco dependence: Code(s): F17.200 - Nicotine dependence, unspecified, uncomplicated Status: Acute Assessment and Plan: Educated about smoking cessation. (7) Adult failure to thrive: Code(s): R62.7 - Adult failure to thrive Status: Acute Assessment and Plan: Etiology unclear why he has poor oral intake. Related to the CVAs? Continue supportive care. encourage activity. (8) Stroke: Code(s): I63.9 - Cerebral infarction, unspecified Status: Acute Assessment and Plan: Brain MRI on 07/17 showing scattered acute infarcts in the cerebellum, bilateral basal ganglia, and bilateral frontal, parietal, and occipital lobes, worst in the occipital lobes and left parietal lobe. Echo showing EF 65-70% with Grade I diastolic dysfunction and an intact interatrial septum. No AFib by tele monitor. Continue Plavix. Initiated Atorvastatin. DS: Summary Hospital Course Hospital Course: This is a 56-year-old gentleman with past medical history of hypertension, hypothyroidism, alcohol dependence, history of recent multiple strokes, who was admitted to the hospital on 07/26 after presenting to the emergency department, being sent from his residence facility for evaluation of abnormal labs, namely low potassium at 2.5, along with hypoglycemia. On presentation to the emergency department he was noted to have a blood pressure of 86/74, heart rate 87, afebrile, saturating in the 90s on room air. This prickly responded to IV hydration with his blood pressure improving to 106/94 in the emergency department. His initial blood work did show a WBC of 11.4, hemoglobin 9.7, platelets of 182, sodium 132, potassium 2.7, bicarb 23, creatinine 0.6, BUN 9, and normal liver function tests. His electrolyte abnormalities was and the setting of his diuretic use along with poor intake leading to volume depletion and hypokalemia. He was admitted to the hospital and his potassium was replaced and normalized. His glucose on admission was 162, it was noted to drop on occasion, when he was not eating, and would improve with oral intake. HE had mild hyponatremia in setting of low solute intake. Salt tabs were initiated. There was question of urinary tract infection, however there was some yeast growth but no bacteria and antibiotics were discontinued as he was asymptomatic. His anemia is noted to be chronic, likely in the setting significant alcohol
[2021-07-30 13:16] LABS: Sodium 128 mmol/L (137-145)
[2021-08-03 06:26] LABS: Osmolality, Urine 487 mOsm/kg (50-1200)
== END 2021-07-30 16:18 ==
LOC: ANHED 23:13 → ANH2MED 23:49
PROVIDERS: Internal Medicine; Admitting Provider Internal Medicine; Emergency Provider Family Medicine; PCP Family Medicine; Visit Provider Internal Medicine Nephrology
DX: N39.0 Urinary tract infection, site not specified (principal); D53.9 Nutritional anemia, unspecified; E87.8 Other disorders of electrolyte and fluid balance, not elsewhere classified; E43 Unspecified severe protein-calorie malnutrition; F10.20 Alcohol dependence, uncomplicated; R62.7 Adult failure to thrive; I63.9 Cerebral infarction, unspecified; E87.6 Hypokalemia; E87.1 Hypo-osmolality and hyponatremia; I10 Essential (primary) hypertension; E03.9 Hypothyroidism, unspecified; F17.210 Nicotine dependence, cigarettes, uncomplicated; Z86.73 Personal history of transient ischemic attack (TIA), and cerebral infarction without residual deficits; Z79.02 Long term (current) use of antithrombotics/antiplatelets; Z79.51 Long term (current) use of inhaled steroids; Z68.1 Body mass index [BMI] 19.9 or less, adult
CPT/HCPCS: 36415; 51701; 71045; 80048; 80053; 80069; 80202; 81001; 82310; 82533; 82570; 82948; 83735; 83930; 83935; 84100; 84132; 84133; 84156; 84295; 84300; 84443; 85025; 85027; 86703; 87086; 87088; 87106; 93005; 96360; 96361; 96365; 96366; 96367; 96374; 96375; 96376; 97110; 97161; 97166; 97530; 97535; 99285; A9270; G0378; G0379; G0432; J0610; J0696; J3370; J3475; J3480; J7030; J7040; J7042

== ENCOUNTER 2021-08-10 13:44 | Inpatient (IN) | payer OTHER, SELFPAY ==
[2021-08-10] VITALS (21 sets, daily range): BP systolic 111–145; BP diastolic 70–93; PULSE 102–124; RESP 15–29; TEMP 36.8–37.5; O2SAT 95–100; BMI 19.3
--- NOTE | ~2021-08-10 | XR_ITS ---
EXAMINATION: XR chest 1V portable DATE: 08/17/2021 05:59 INDICATION: Shortness of breath. TECHNIQUE: A single frontal view of the chest was obtained. COMPARISON: Chest single view 08/10/2021, chest CT 04/28/2021 FINDINGS: There are airspace opacities in right lower lung zone and left mid and lower lung zones. No pleural effusion or pneumothorax. The heart size is normal. IMPRESSION: 1. Airspace opacities in right lower lung zone and left mid and lower lung zones with worsening on th e left, consistent with atelectasis versus pneumonia. Reviewed, dictated and finalized at location A. IMPRESSION: 1. Airspace opacities in right lower lung zone and left mid and lower lung zone s with worsening on the left, consistent with atelectasis versus pneumonia.
--- NOTE | ~2021-08-10 | XR_ITS ---
XR chest 1V portable 08/10/2021 15:02 Indication: Shortness of breath. Low oxygen saturations. Procedure: AP portable chest Comparison: Comparison to multiple prior studies sequentially, with oldest reviewed study dated 07/16. Findings: Developing bibasilar airspace disease. The lungs are hyperinflated which is consistent with , but not diagnostic of chronic obstructive pulmonary disease. Heart size normal. Impression: 1: Developing bibasilar space disease, compatible with pneumonia. Reviewed, dictated and finalized at location A. Impression: 1: Developing bibasilar space disease, compatible with pneumonia.
--- NOTE | 2021-08-10 14:19 | ECG_ITS ---
Measurements Intervals [place] Rate: 111 P: ND: 0 QRS: 62 QRSD: 80 T: 83 QT: 305 QTc: 416 Interpretive Statements SINUS TACHYCARDIA RIGHT BUNDLE BRANCH BLOCK LOW QRS VOLTAGE IN PRECORDIAL LEADS BASELINE ARTIFACT- I, II, III, AVR, AVL, AVF, V1-V6 ABNORMAL ECG Electronically Signed On 08-10-2021 14:44:48 CDT by James Cox D.O.
--- NOTE | 2021-08-10 14:19 | ED.GENADULT ---
HPI - General Adult General Chief complaint: Shortness of Breath/Dyspnea Stated complaint: SOB Time Seen by Provider: 08/10/21 14:05 Source: patient, family, EMS and RN notes reviewed Mode of arrival: EMS History of Present Illness HPI narrative: Patient is 56 years old white male brought to the emergency room from [place] because of shortness of breath, got better after 1 neb treatment. Currently patient main complaint is feeling thirsty. Sister is telling me that patient used to be malnourished, over the last few days been having good p.o. intake, gained weight, overhydration is a possibility. History of chronic coughing secondary to tobacco dependent, also had history of alcohol addiction, last intake was June 25. Patient is DNR, patient received the second dose of Covid vaccine yesterday at [place]. Related Data Home Medications Medication Instructions Recorded Confirmed ferrous sulfate 324 mg PO BID 07/27/21 07/27/21 levothyroxine 25 mcg PO DAILY 07/27/21 07/27/21 lisinopril 20 mg PO DAILY 07/27/21 07/27/21 Allergies Allergy/AdvReac Type Severity Reaction Status Date / Time amoxicillin Allergy Rash Verified 04/28/21 12:09 Review of Systems Review of Systems: CONSTITUTIONAL: Denies fever, chills, or sweats. EYES: Denies visual changes, redness, or discharge. ENT: Denies rhinorrhea, congestion, sore throat, or otalgia. CARDIOVASCULAR: Denies chest pain, palpitations, or edema. RESPIRATORY: Denies cough or dyspnea. GASTROINTESTINAL: Denies abdominal pain, nausea, vomiting, or diarrhea. GENITOURINARY: Denies dysuria or hematuria. SKIN: Swollen legs, hyperpigmented skin of the lower extremity. MUSCULOSKELETAL: Denies back pain, joint pain, or myalgia. NEUROLOGIC: Denies headache, numbness, or weakness. PSYCHIATRIC: Denies anxiety or depression. [facility] Past Medical History Medical History Hypertension Tobacco dependence Surgical History Surgical History History of excision of testicular mass With benign histology. Family History Family History Father Chronic obstructive pulmonary disease Congestive heart failure Hypertension Mother Abdominal aortic aneurysm rupture Daughter Type 1 diabetes mellitus Social History Social History Social History: Surrogate decision maker: Bere Gagnon, sister. Code status: Full code. Smoking packs per day: 1 Smoking cigarettes per day: 20.0 Years smoked: 35 Smoking pack-years: 35.00 Smoking status: Current some day smoker Tobacco type: cigarettes Alcohol intake: current Drinks per week: 4 Alcohol use details: 3 to 4 beers per week. Substance use: never Substance use type: does not use Additional living arrangements comments: The patient lives in [place] with his brother. They are both currently unemployed and are living on food stamps. Additional occupation/education comments: Currently unemployed. Gender identity (if verbalized by the patient): Male Spiritual care concerns: No Exam Narrative: General appearance: Well-developed, malnourished, generally lethargic and weak Skin: 1+ edema feet bilaterally more on the right side, dry skin, hyperpigmented discoloration of the skin, onychomycosis bilaterally Head: Normocephalic, nontraumatic Eyes: Clear conjunctiva ENT: Oropharynx normal, ears normal, nose normal Neck: Supple, nontender Chest and respiratory: Airway patent, no respiratory distress, no accessory muscle use Heart: Regular rate/rhythm Abdomen: Soft, nontender, no organomegaly, quiet bowel sounds Vascular: Normal peripheral pulses, normal capillary refill. Musculoskeletal: Normal range of motion, nontender back Neurologic: Alert and oriented ?3, SYNTHETIC RESIN OPERATOR is normal as tested, no gross mo
[2021-08-10 14:39] LABS: Alveolar/Arterial O2 Gradient 53.5 mmHg; Base Excess ABG -4.1 mEq/l (+/-2.0); Fractional Inspired Oxygen 21 %; HCO3 ABG 18.6 mEq/l (22.0-26.0); Oxygen Content ABG 11.2 %vol (16.0-22.0); Oxygen Saturation ABG 94.6 % (95.0-100.0); Oxyhemoglobin 91.7 % THb (90.0-100.0); PCO2 ABG 25.6 mmHg (35.0-45.0); PO2 ABG 65.6 mmHg (80.0-100.0); PO2 FiO2 Ratio Arterial Blood 3.12 %; Total Hemoglobin 8.6 g/dL (12.0-18.0); pH ABG 7.478 (7.350-7.450)
[2021-08-10 14:40] LABS: Device ROOM AIR; Modified Allen's Test Pass; Site Drawn LEFT RADIAL
[2021-08-10 15:37] LABS: Add Urine Microscopic? YES; Appearance Urine Clear (Clear); Bilirubin Urine Negative (Negative); Budding Yeast Urine Present /hpf; Color Urine Yellow (Yellow); Glucose Urine UA Negative (Negative); Ketones Urine Negative (Negative); Leukocyte Esterase Ur 1+ LEU/UL (Negative); Mucus Urine Rare /lpf; Nitrate Urine Negative (Negative); Protein Urine Negative (Negative); Specific Grav Ur 1.019 (1.001-1.035); Squamous Epithelial Cell Urine Rare /hpf (Few); Urobilinogen Urine Negative mg/dL (<2.0)
[2021-08-10 15:39] LABS: Blood Urine Negative (Negative)
[2021-08-10 15:45] LABS: Basophils Absolute Auto 0.1 K/mm3 (0.0-0.1); Basophils Percent Auto 0.3 % (0.2-1.2); Hematocrit 24.9 % (42.0-52.0); Hemoglobin 8.1 g/dL (14.0-18.0); Immature Granulocyte Absolute 0.36 K/mm3 (0.00-0.031); Immature Granulocyte Percent A 1.4 % (0-0.5); Lymphocytes Absolute Auto 1.85 K/mm3 (0.9-3.2); Lymphocytes Percent Auto 7.4 % (18.3-44.2); Mean Corpuscular HGB Conc 32.5 g/dl (32-36); Mean Corpuscular Hemoglobin 32.3 pg (26-34); Mean Corpuscular Volume 99.2 fl (80-100); Mean Platelet Volume 8.8 fl (7.4-10.4); Monocytes Absolute Auto 2.1 K/mm3 (0.1-0.6); Monocytes Percent Auto 8.2 % (2.6-8.5); Neutrophils Absolute Auto 20.8 K/mm3 (1.3-6.7); Neutrophils Percent Auto 82.7 % (45.5-73.1); Platelet Count Result 366 k/mm3 (150-375); Red Blood Count 2.51 M/mm3 (4.6-6.20); Red Cell Distribution Width 15.5 % (11.5-14.5); White Blood Count 25.1 K/mm3 (4.5-10.0)
[2021-08-10 15:53] LABS: INR 1.1; Prothrombin Time 14.2 Seconds (11.1-14.7)
[2021-08-10 15:54] LABS: Alanine Aminotransferase 21 U/L (4-50); Albumin Level 2.2 g/dL (3.5-5.1); Alkaline Phosphatase 97 U/L (38-126); Anion Gap 7 mmol/L (8-16); Aspartate Amino Transferase 39 U/L (17-59); Bilirubin,Total 0.4 mg/dL (0.2-1.3); Blood Urea Nitrogen 11 mg/dL (9-20); Calcium 8.2 mg/dL (8.4-10.2); Carbon Dioxide 23 mmol/L (22-30); Chloride 107 mmol/L (98-107); Estimated CRCL calculation 109 ml/min; Estimated Glomerular Filt Rate > 60; Glucose 134 mg/dL (65-110); Partial Thromboplastin Time 27.4 SECONDS (22.3-36.8); Potassium 4.2 mmol/L (3.4-5.0); Sodium 137 mmol/L (137-145)
[2021-08-10 16:02] LABS: Ovalocytes 1+ (NORMAL); Platelet Estimate Adequate (Adequate)
[2021-08-10 16:03] LABS: NT Pro B Type Natriuretic Pept 3590 pg/mL (5-100)
[2021-08-10 16:05] LABS: Troponin I < 0.012 ng/mL (0.000-0.034)
[2021-08-10 18:48] LABS: Troponin I < 0.012 ng/mL (0.000-0.034)
--- NOTE | 2021-08-10 19:53 | PC.NURSE ---
Arm board and Cob[place] applied to L arm to help with antibiotic administration.
--- NOTE | 2021-08-10 20:38 | PC.NURSE ---
Unit unable to take report at this time, will call ED back.
--- NOTE | 2021-08-10 21:29 | PM.IMHP ---
H&P: HPI History of Present Illness Date/Time: 08/10/21 21:29 Chief Complaint: Shortness of breath Narrative: This is a 56-year-old male with past medical history significant for alcohol dependence, tobacco dependence, multiple strokes, severe protein calorie malnutrition, hypertension. Patient [facility] due to shortness of breath. Patient can not really provide much history but he is very concerned about what is the plan of care however when questioned he can not really tell why he is in the hospital states that he feels cold and has a cough. Preliminary workup was significant for chest x-ray with infiltrates and WBC with leukocyte count of 25,000. Patient was recently discharged from [facility] at the beginning of July. Decision has been made to admit the patient to regular medical floor for further management and treatment. Review of Systems Review of Systems: ROS unobtainable: Yes unobtainable due to medical condition (Early dementia) PMFSH Past Medical History Medical History Hypertension Tobacco dependence Surgical History Surgical History History of excision of testicular mass With benign histology. Family History Family History Father Chronic obstructive pulmonary disease Congestive heart failure Hypertension Mother Abdominal aortic aneurysm rupture Daughter Type 1 diabetes mellitus Social History Social History Social History: Surrogate decision maker: Bere Gagnon, sister. Code status: Full code. Smoking packs per day: 1 Smoking cigarettes per day: 20.0 Years smoked: 35 Smoking pack-years: 35.00 Smoking status: Current some day smoker Tobacco type: cigarettes Alcohol intake: current Drinks per week: 4 Alcohol use details: 3 to 4 beers per week. Substance use: never Substance use type: does not use Additional living arrangements comments: The patient lives in [place] with his brother. They are both currently unemployed and are living on food stamps. Additional occupation/education comments: Currently unemployed. Gender identity (if verbalized by the patient): Male Spiritual care concerns: No Meds Home Medications and Allergies Home Medications Medication Instructions Recorded Confirmed Type albuterol sulfate 2 puff INHALATION QID PRN #8.5 g 07/21/21 07/27/21 Rx clopidogrel 75 mg PO QAM 42 Days #42 tablet 07/21/21 07/27/21 Rx folic acid 1 mg PO DAILY #30 tablet 07/21/21 07/27/21 Rx lactulose 30 g PO BID #1500 ml 07/21/21 07/27/21 Rx pantoprazole [Protonix] 40 mg PO BID #60 ea 07/21/21 07/27/21 Rx thiamine HCl (vitamin B1) 100 mg PO DAILY #30 tablet 07/21/21 07/27/21 Rx ferrous sulfate 324 mg PO BID 07/27/21 07/27/21 History levothyroxine 25 mcg PO DAILY 07/27/21 07/27/21 History lisinopril 20 mg PO DAILY 07/27/21 07/27/21 History atorvastatin 20 mg PO HS #30 tablet 07/30/21 Rx megestrol 400 mg PO BIDWM #300 ml 07/30/21 Rx miconazole nitrate [Aloe [place] 1 applic TOPICAL Q12HR #15 g 07/30/21 Rx Antifungal (micon)] potassium chloride [K-Tab] 20 meq PO DAILY@0800 #60 tablet 07/30/21 Rx silver [Silver-Sept] 1 applic TOPICAL DAILY #15 g 07/30/21 Rx sodium chloride 1 g PO BID #60 tablet 07/30/21 Rx Allergies Allergy/AdvReac Type Severity Reaction Status Date / Time amoxicillin Allergy Rash Verified 04/28/21 12:09 Vital Signs Vital Signs - 24 hr 08/10/21 13:50 08/10/21 13:51 08/10/21 14:00 Temperature Pulse Rate 123 H 108 H Respiratory Rate 21 H 18 21 H Blood Pressure 123/70 Pulse Oximetry 98 08/10/21 14:01 08/10/21 14:12 08/10/21 14:19 Temperature Pulse Rate 109 H 119 H Respiratory Rate 20 19 Blood Pressure 113/82 Pulse Ox
[2021-08-10] MEDS: AZTREONAM 1 GM in DEXTROSE 5% IN WATER 50 ML 100 ML IVPB (22:53)
[2021-08-11] VITALS (10 sets, daily range): BP systolic 110–133; BP diastolic 72–91; PULSE 53–109; RESP 16–22; TEMP 36.3–37.4; O2SAT 91–100
[2021-08-11 06:25] LABS: Basophils Absolute Auto 0.1 K/mm3 (0.0-0.1); Basophils Percent Auto 0.3 % (0.2-1.2); Eosinophils Percent Auto 0.1 % (0-4.4); Immature Granulocyte Percent A 1.1 % (0-0.5); Lymphocytes Absolute Auto 1.65 K/mm3 (0.9-3.2); Lymphocytes Percent Auto 9.1 % (18.3-44.2); Mean Corpuscular HGB Conc 33.5 g/dl (32-36); Mean Corpuscular Hemoglobin 32.5 pg (26-34); Mean Platelet Volume 8.7 fl (7.4-10.4); Monocytes Absolute Auto 1.3 K/mm3 (0.1-0.6); Monocytes Percent Auto 6.9 % (2.6-8.5); Neutrophils Absolute Auto 15.1 K/mm3 (1.3-6.7); Neutrophils Percent Auto 82.5 % (45.5-73.1); Platelet Count Result 256 k/mm3 (150-375); Red Blood Count 2.03 M/mm3 (4.6-6.20); Red Cell Distribution Width 15.3 % (11.5-14.5); White Blood Count 18.2 K/mm3 (4.5-10.0)
[2021-08-11] MEDS: AZTREONAM 1 GM in DEXTROSE 5% IN WATER 50 ML 100 ML IVPB ×3 (06:32→22:19)
[2021-08-11 06:48] LABS: Hematocrit 19.7 % (42.0-52.0); Hemoglobin 6.6 g/dL (14.0-18.0)
[2021-08-11] MEDS: SODIUM CHLORIDE 0.9% IV 250 ML 30 ML IV CONT (11:17)
[2021-08-11 12:13] LABS: Hypochromasia 2+ (NORMAL); Platelet Estimate Adequate (Adequate); Schistocytes 1+ (NORMAL)
--- NOTE | 2021-08-11 13:00 | PM.IMPN ---
Progress Note: A&P Assessment and Plan (1) HCAP (healthcare-associated pneumonia): Code(s): J18.9 - Pneumonia, unspecified organism Status: Acute Assessment and Plan: Patient presumably has Hcap. Chest x-ray shows developing bibasilar airspace disease compatible with pneumonia. However patient is fluid overloaded on exam. His BNP is 3600. Concern for CHF exacerbation her blood has a component of his symptoms. Will treat with IV Lasix. Monitor closely. White count was 25,000 by his dropped to 18,000 now. Continue IV antibiotics for now. Follow-up on cultures. Blood cultures thus far are no growth to date. (2) Protein-calorie malnutrition, severe: Code(s): E43 - Unspecified severe protein-calorie malnutrition Status: Acute Assessment and Plan: Patient was seen by speech therapy at the end of June and they recommended minced and moist diet. Mealtime procedures were recommended as well/his alternating solids with liquids. Will start minced and moist diet. Aspiration precautions. Add recommendations. Add supplements. Resume Megace (3) Megaloblastic anemia: Code(s): D53.1 - Other megaloblastic anemias, not elsewhere classified Status: Acute Assessment and Plan: Hemoglobin was 8.1. He did drop to 6.6 today and transfusion was ordered. No evidence of acute blood loss. Continue monitor. Start Protonix. (4) Alcohol dependence: Code(s): F10.20 - Alcohol dependence, uncomplicated Status: Acute Assessment and Plan: Patient has been abstinent from alcohol for the past 3 months. He has been residing at [place]. (5) Tobacco dependence: Code(s): F17.200 - Nicotine dependence, unspecified, uncomplicated Status: Acute Assessment and Plan: He last used tobacco to 3 weeks ago. He was educated about the benefits of smoking cessation. (6) Stroke: Code(s): I63.9 - Cerebral infarction, unspecified Status: Acute Assessment and Plan: Brain MRI on 07/17 showing scattered acute infarcts in the cerebellum, bilateral basal ganglia, and bilateral frontal, parietal, and occipital lobes, worst in the occipital lobes and left parietal lobe. Echo showing EF 65-70% with Grade I diastolic dysfunction and an intact interatrial septum. He was on Plavix and Atorvastatin at last discharge. Clarify home meds. (7) DVT prophylaxis: Code(s): Z29.9 - Encounter for prophylactic measures, unspecified Status: Acute Assessment and Plan: SCDs Subjective Date/time seen: 08/11/21 13:00 Interval history: 56-year-old male with history of alcoholism and malnutrition here for shortness of breath. Patient is alert but mildly confused so his history is suspect. He denies any chest pain. He does have a nonproductive cough. Also shortness of breath. He recently received his 2nd COVID vaccine about a week ago. His last alcoholic drink was 3 months ago. His last tobacco use was about 2-3 weeks ago. Exam Narrative: AF 97.9 121/84 94 18 100% ra Gen -chronically ill appearing cachectic male lying semi recumbent bed Chest -inspiratory expiratory wheezing. CV - RRR S1/S2 Abd -soft. Nontender. Positive bowel sounds. Flank edema Ext - bilateral diffuse pitting edema to the flanks Neuro - Alert and oriented x3. Nonfocal exam. Psych - Nml mood but odd affect Skin - cool and dry; multiple areas of bruising in the anterior neck, chest and arms. Skin tears bilateral UE with dressings in place. right heel shallow ulcer. dried excoriations lower extremity Objective Data Vital Signs Vital Signs: Vital Signs - 24 hr 08/10/21 13:50 08/10/21 13:51 08/10/21 14:00 Temperature Pulse Rate 123 H 108 H Respiratory Rate 21 H 18 21 H Blood Pressure 123/70 Pulse Oximetry 98 08/10/21 14:01 08/10/21 14:12 08/10/21 14:19 Temperature Pulse Rate 109 H 119 H Respiratory Rate 20 19 Blood Pressure
[2021-08-11] MEDS: FUROSEMIDE INJ 40 MG/4 ML VIAL 20 MG IV PUSH (15:12)
[2021-08-11 15:51] LABS: Hematocrit 26.3 % (42.0-52.0); Hemoglobin 8.6 g/dL (14.0-18.0)
[2021-08-11] MEDS: EUCERIN CREAM 120 GM JAR 1 APPLIC TOPICAL (18:39)
[2021-08-11] MEDS: PANTOPRAZOLE 40 MG TABLET PO (18:40)
[2021-08-11] MEDS: MEGESTROL ACETATE (*CHEMO) ORAL SUSP 40 MG/ML SYR 400 MG PO (18:40)
[2021-08-11] MEDS: FUROSEMIDE INJ 40 MG/4 ML VIAL IV PUSH (18:40)
[2021-08-11 19:38] LABS: SARS-CoV-2 RNA PCR Negative
[2021-08-11] MEDS: ATORVASTATIN 20 MG TABLET PO (22:19)
[2021-08-12] VITALS: BP 132/92; PULSE 89; RESP 20; TEMP 37.2; O2SAT 100
[2021-08-12 04:00] VITALS: BP 123/92; PULSE 81; RESP 20; TEMP 36.6; O2SAT 100
[2021-08-12] MEDS: LEVOTHYROXINE SODIUM 25 MCG TABLET PO (05:43)
[2021-08-12] MEDS: AZTREONAM 1 GM in DEXTROSE 5% IN WATER 50 ML 100 ML IVPB ×3 (05:44→21:45)
[2021-08-12 07:46] LABS: Alanine Aminotransferase 14 U/L (4-50); Albumin Level 1.7 g/dL (3.5-5.1); Alkaline Phosphatase 89 U/L (38-126); Anion Gap 3 mmol/L (8-16); Aspartate Amino Transferase 30 U/L (17-59); Bilirubin,Total 0.4 mg/dL (0.2-1.3); Blood Urea Nitrogen 14 mg/dL (9-20); Calcium 7.1 mg/dL (8.4-10.2); Carbon Dioxide 26 mmol/L (22-30); Chloride 101 mmol/L (98-107); Estimated CRCL calculation 94 ml/min; Estimated Glomerular Filt Rate > 60; Glucose 105 mg/dL (65-110); Magnesium 1.4 mg/dL (1.6-2.3); Potassium 3.3 mmol/L (3.4-5.0); Sodium 130 mmol/L (137-145)
[2021-08-12 07:51] LABS: Basophils Percent Auto 0.4 % (0.2-1.2); Eosinophils Absolute Auto 0.1 K/mm3 (0-0.3); Eosinophils Percent Auto 0.5 % (0-4.4); Hematocrit 23.5 % (42.0-52.0); Hemoglobin 7.9 g/dL (14.0-18.0); Immature Granulocyte Absolute 0.14 K/mm3 (0.00-0.031); Immature Granulocyte Percent A 1.5 % (0-0.5); Lymphocytes Absolute Auto 1.45 K/mm3 (0.9-3.2); Lymphocytes Percent Auto 15.6 % (18.3-44.2); Mean Corpuscular HGB Conc 33.6 g/dl (32-36); Mean Corpuscular Hemoglobin 31.2 pg (26-34); Mean Corpuscular Volume 92.9 fl (80-100); Mean Platelet Volume 8.9 fl (7.4-10.4); Monocytes Percent Auto 11.2 % (2.6-8.5); Neutrophils Absolute Auto 6.6 K/mm3 (1.3-6.7); Neutrophils Percent Auto 70.8 % (45.5-73.1); Platelet Count Result 294 k/mm3 (150-375); Red Blood Count 2.53 M/mm3 (4.6-6.20); Red Cell Distribution Width 15.4 % (11.5-14.5); White Blood Count 9.3 K/mm3 (4.5-10.0)
[2021-08-12] MEDS: FERROUS SULFATE 324 MG TABLET PO ×2 (08:41→17:51)
[2021-08-12] MEDS: PANTOPRAZOLE 40 MG TABLET PO ×2 (08:41→17:51)
[2021-08-12] MEDS: MEGESTROL ACETATE (*CHEMO) ORAL SUSP 40 MG/ML SYR 400 MG PO ×2 (08:41→17:51)
[2021-08-12] MEDS: EUCERIN CREAM 120 GM JAR 1 APPLIC TOPICAL ×2 (08:41→17:51)
[2021-08-12] MEDS: FUROSEMIDE INJ 40 MG/4 ML VIAL IV PUSH ×2 (08:43→17:50)
--- NOTE | 2021-08-12 09:19 | PM.IMPN ---
Progress Note: A&P Assessment and Plan (1) HCAP (healthcare-associated pneumonia): Code(s): J18.9 - Pneumonia, unspecified organism Status: Acute Assessment and Plan: Patient presumably has Hcap. Chest x-ray shows developing bibasilar airspace disease compatible with pneumonia. However patient is fluid overloaded on exam. His BNP is 3600. Concern for CHF exacerbation her blood has a component of his symptoms. Will treat with IV Lasix. Monitor closely. White count was 25,000 by his dropped to 18,000 now. Continue IV antibiotics for now. Follow-up on cultures. Blood cultures thus far are no growth to date. (2) Protein-calorie malnutrition, severe: Code(s): E43 - Unspecified severe protein-calorie malnutrition Status: Acute Assessment and Plan: Patient was seen by speech therapy at the end of June and they recommended minced and moist diet. Mealtime procedures were recommended as well/his alternating solids with liquids. Will start minced and moist diet. Aspiration precautions. Add recommendations. Add supplements. Resume Megace (3) Megaloblastic anemia: Code(s): D53.1 - Other megaloblastic anemias, not elsewhere classified Status: Acute Assessment and Plan: Hemoglobin was 8.1. He did drop to 6.6 today and transfusion was ordered. No evidence of acute blood loss. Continue monitor. Start Protonix. (4) Alcohol dependence: Code(s): F10.20 - Alcohol dependence, uncomplicated Status: Acute Assessment and Plan: Patient has been abstinent from alcohol for the past 3 months. He has been residing at [place]. (5) Tobacco dependence: Code(s): F17.200 - Nicotine dependence, unspecified, uncomplicated Status: Acute Assessment and Plan: He last used tobacco to 3 weeks ago. He was educated about the benefits of smoking cessation. (6) Stroke: Code(s): I63.9 - Cerebral infarction, unspecified Status: Acute Assessment and Plan: Brain MRI on 07/17 showing scattered acute infarcts in the cerebellum, bilateral basal ganglia, and bilateral frontal, parietal, and occipital lobes, worst in the occipital lobes and left parietal lobe. Echo showing EF 65-70% with Grade I diastolic dysfunction and an intact interatrial septum. He was on Plavix and Atorvastatin at last discharge. Clarify home meds. (7) DVT prophylaxis: Code(s): Z29.9 - Encounter for prophylactic measures, unspecified Status: Acute Assessment and Plan: SCDs Subjective Date/time seen: 08/12/21 09:19 Patient was seen during the morning rounds today. Feeling much better. No shortness of breath or chest pain. No abdominal pain, no nausea, no vomiting. Mood stable. Interval history: 56-year-old male with history of alcoholism and malnutrition here for shortness of breath. Patient is alert but mildly confused so his history is suspect. He denies any chest pain. He does have a nonproductive cough. Also shortness of breath. He recently received his 2nd COVID vaccine about a week ago. His last alcoholic drink was 3 months ago. His last tobacco use was about 2-3 weeks ago. Review of Systems Review of Systems: ROS unobtainable: Yes unobtainable due to medical condition (Early dementia) Exam Narrative: AF 97.9 121/84 94 18 100% ra Gen -chronically ill appearing cachectic male lying semi recumbent bed Chest -inspiratory expiratory wheezing. CV - RRR S1/S2 Abd -soft. Nontender. Positive bowel sounds. Flank edema Ext - bilateral diffuse pitting edema to the flanks Neuro - Alert and oriented x3. Nonfocal exam. Psych - Nml mood but odd affect Skin - cool and dry; multiple areas of bruising in the anterior neck, chest and arms. Skin tears bilateral UE with dressings in place. right heel shallow ulcer. dried excoriations lower extremity Const: General: cooperative, comfortable, no acute distress, well developed,
--- NOTE | 2021-08-12 11:20 | PCOTNOTE ---
Addendum entered by Mariama Marion, OT 08/12/21 11:21: Will attempt again, later today. Original Note: Attempted to evaluated for occupational therapy. Pt. declined to participate
[2021-08-12 14:00] VITALS: BP 132/90; PULSE 94; RESP 20; TEMP 36.5; O2SAT 97
[2021-08-12] MEDS: POTASSIUM CHLORIDE 20 MEQ PACKET (FOR LIQUID) 40 MEQ PO (15:09)
[2021-08-12 22:00] VITALS: BP 138/93; PULSE 94; RESP 16; TEMP 36.4; O2SAT 99
[2021-08-12] MEDS: ATORVASTATIN 20 MG TABLET PO (22:26)
[2021-08-13 06:00] VITALS: BP 131/94; PULSE 84; RESP 16; TEMP 36.1; O2SAT 94
[2021-08-13] MEDS: AZTREONAM 1 GM in DEXTROSE 5% IN WATER 50 ML 100 ML IVPB ×3 (06:18→21:12)
[2021-08-13 06:41] LABS: Hematocrit 23.3 % (42.0-52.0); Hemoglobin 7.9 g/dL (14.0-18.0); Mean Corpuscular HGB Conc 33.9 g/dl (32-36); Mean Corpuscular Hemoglobin 31.7 pg (26-34); Mean Corpuscular Volume 93.6 fl (80-100); Mean Platelet Volume 8.9 fl (7.4-10.4); Platelet Count Result 262 k/mm3 (150-375); Red Blood Count 2.49 M/mm3 (4.6-6.20); Red Cell Distribution Width 15.2 % (11.5-14.5); White Blood Count 8.4 K/mm3 (4.5-10.0)
[2021-08-13] MEDS: LEVOTHYROXINE SODIUM 25 MCG TABLET PO (06:53)
[2021-08-13 07:28] LABS: Anion Gap 1 mmol/L (8-16); Blood Urea Nitrogen 14 mg/dL (9-20); Calcium 7.1 mg/dL (8.4-10.2); Carbon Dioxide 30 mmol/L (22-30); Chloride 99 mmol/L (98-107); Estimated CRCL calculation 108 ml/min; Estimated Glomerular Filt Rate > 60; Glucose 80 mg/dL (65-110); Sodium 130 mmol/L (137-145)
[2021-08-13 08:00] VITALS: O2SAT 95
[2021-08-13] MEDS: FERROUS SULFATE 324 MG TABLET PO ×2 (09:08→17:19)
[2021-08-13] MEDS: EUCERIN CREAM 120 GM JAR 1 APPLIC TOPICAL ×2 (09:08→18:12)
[2021-08-13] MEDS: MEGESTROL ACETATE (*CHEMO) ORAL SUSP 40 MG/ML SYR 400 MG PO ×2 (09:08→18:12)
[2021-08-13] MEDS: PANTOPRAZOLE 40 MG TABLET PO ×2 (09:08→18:13)
[2021-08-13] MEDS: POLYSACCHARIDE IRON COMPLEX 150 MG CAPSULE PO (09:08)
[2021-08-13] MEDS: FUROSEMIDE INJ 40 MG/4 ML VIAL IV PUSH ×2 (09:09→17:19)
--- NOTE | 2021-08-13 11:11 | PM.IMPN ---
Progress Note: A&P Assessment and Plan (1) HCAP (healthcare-associated pneumonia): Code(s): J18.9 - Pneumonia, unspecified organism Status: Acute Assessment and Plan: Patient presumably has Hcap. Chest x-ray shows developing bibasilar airspace disease compatible with pneumonia. However patient is fluid overloaded on exam. His BNP is 3600. Concern for CHF exacerbation her blood has a component of his symptoms. Will treat with IV Lasix. Monitor closely. White count was 25,000 by his dropped to 18,000 now. Continue IV antibiotics for now. Follow-up on cultures. Blood cultures thus far are no growth to date. (2) Protein-calorie malnutrition, severe: Code(s): E43 - Unspecified severe protein-calorie malnutrition Status: Acute Assessment and Plan: Patient was seen by speech therapy at the end of June and they recommended minced and moist diet. Mealtime procedures were recommended as well/his alternating solids with liquids. Will start minced and moist diet. Aspiration precautions. Add recommendations. Add supplements. Resume Megace (3) Megaloblastic anemia: Code(s): D53.1 - Other megaloblastic anemias, not elsewhere classified Status: Acute Assessment and Plan: Hemoglobin was 8.1. He did drop to 6.6 today and transfusion was ordered. No evidence of acute blood loss. Continue monitor. Start Protonix. (4) Alcohol dependence: Code(s): F10.20 - Alcohol dependence, uncomplicated Status: Acute Assessment and Plan: Patient has been abstinent from alcohol for the past 3 months. He has been residing at [place]. (5) Tobacco dependence: Code(s): F17.200 - Nicotine dependence, unspecified, uncomplicated Status: Acute Assessment and Plan: He last used tobacco to 3 weeks ago. He was educated about the benefits of smoking cessation. (6) Stroke: Code(s): I63.9 - Cerebral infarction, unspecified Status: Acute Assessment and Plan: Brain MRI on 07/17 showing scattered acute infarcts in the cerebellum, bilateral basal ganglia, and bilateral frontal, parietal, and occipital lobes, worst in the occipital lobes and left parietal lobe. Echo showing EF 65-70% with Grade I diastolic dysfunction and an intact interatrial septum. He was on Plavix and Atorvastatin at last discharge. Clarify home meds. (7) DVT prophylaxis: Code(s): Z29.9 - Encounter for prophylactic measures, unspecified Status: Acute Assessment and Plan: SCDs (8) Hypokalemia: Code(s): E87.6 - Hypokalemia Status: Acute Assessment and Plan: Replace and monitor Additional Plan 08/13/2021 Will continue current plan of care and treatment. Potassium is low will replace and monitor. Will start physical therapy. Subjective Date/time seen: 08/13/21 11:11 Interval history: 56-year-old male with history of alcoholism and malnutrition here for shortness of breath. Patient is alert but mildly confused so his history is suspect. He denies any chest pain. He does have a nonproductive cough. Also shortness of breath. He recently received his 2nd COVID vaccine about a week ago. His last alcoholic drink was 3 months ago. His last tobacco use was about 2-3 weeks ago. 08/13/2021 Patient was seen during the morning rounds today. Patient is clinically getting better. Patient denies any shortness of breath or chest pain. No abdominal pain, no nausea, no vomiting. Mood stable Review of Systems Review of Systems: ROS unobtainable: Yes unobtainable due to medical condition (Early dementia) Exam Narrative: AF 97.9 121/84 94 18 100% ra Gen -chronically ill appearing cachectic male lying semi recumbent bed Chest -inspiratory expiratory wheezing. CV - RRR S1/S2 Abd -soft. Nontender. Positive bowel sounds. Flank edema Ext - bilateral diffuse pitting edema to the flanks Neuro - Alert and oriented x3. Nonfoca
[2021-08-13] MEDS: POTASSIUM CHLORIDE 20 MEQ PACKET (FOR LIQUID) 40 MEQ PO (11:56)
[2021-08-13 14:00] VITALS: BP 109/77; PULSE 108; RESP 18; TEMP 37.4; O2SAT 98
[2021-08-13 20:00] VITALS: BP 118/84; PULSE 99; RESP 20; TEMP 37.6; O2SAT 95
[2021-08-13] MEDS: ATORVASTATIN 20 MG TABLET PO (21:12)
[2021-08-14] VITALS: BP 114/67; PULSE 99; RESP 20; TEMP 36.8; O2SAT 91
[2021-08-14 04:00] VITALS: BP 110/76; PULSE 88; RESP 20; TEMP 37.2; O2SAT 93
[2021-08-14] MEDS: AZTREONAM 1 GM in DEXTROSE 5% IN WATER 50 ML 100 ML IVPB ×2 (05:51→15:32)
[2021-08-14] MEDS: LEVOTHYROXINE SODIUM 25 MCG TABLET PO (05:52)
[2021-08-14 06:27] LABS: Hematocrit 22.3 % (42.0-52.0); Hemoglobin 7.6 g/dL (14.0-18.0); Mean Corpuscular HGB Conc 34.1 g/dl (32-36); Mean Corpuscular Hemoglobin 31.1 pg (26-34); Mean Corpuscular Volume 91.4 fl (80-100); Mean Platelet Volume 8.6 fl (7.4-10.4); Platelet Count Result 226 k/mm3 (150-375); Red Blood Count 2.44 M/mm3 (4.6-6.20); Red Cell Distribution Width 15.2 % (11.5-14.5); White Blood Count 7.4 K/mm3 (4.5-10.0)
[2021-08-14 06:42] LABS: Alanine Aminotransferase 18 U/L (4-50); Albumin Level 1.7 g/dL (3.5-5.1); Alkaline Phosphatase 73 U/L (38-126); Anion Gap -1 mmol/L (8-16); Aspartate Amino Transferase 48 U/L (17-59); Bilirubin,Total 0.2 mg/dL (0.2-1.3); Blood Urea Nitrogen 13 mg/dL (9-20); Calcium 6.7 mg/dL (8.4-10.2); Carbon Dioxide 29 mmol/L (22-30); Chloride 95 mmol/L (98-107); Estimated CRCL calculation 108 ml/min; Estimated Glomerular Filt Rate > 60; Glucose 91 mg/dL (65-110); Potassium 3.1 mmol/L (3.4-5.0); Sodium 123 mmol/L (137-145)
[2021-08-14] MEDS: MEGESTROL ACETATE (*CHEMO) ORAL SUSP 40 MG/ML SYR 400 MG PO ×2 (08:21→17:16)
[2021-08-14] MEDS: POTASSIUM CHLORIDE 20 MEQ TABLET 40 MEQ PO (08:21)
[2021-08-14] MEDS: MAGNESIUM OXIDE 400 MG TABLET PO (08:22)
[2021-08-14] MEDS: FUROSEMIDE INJ 40 MG/4 ML VIAL IV PUSH (08:22)
[2021-08-14] MEDS: EUCERIN CREAM 120 GM JAR 1 APPLIC TOPICAL ×2 (08:23→17:16)
[2021-08-14] MEDS: FERROUS SULFATE 324 MG TABLET PO ×2 (08:23→17:16)
[2021-08-14] MEDS: PANTOPRAZOLE 40 MG TABLET PO ×2 (08:23→17:16)
[2021-08-14 14:00] VITALS: BP 131/65; PULSE 91; RESP 20; TEMP 36.3; O2SAT 95
--- NOTE | 2021-08-14 15:30 | PM.IMPN ---
Progress Note: A&P Assessment and Plan (1) HCAP (healthcare-associated pneumonia): Code(s): J18.9 - Pneumonia, unspecified organism Status: Acute Assessment and Plan: Patient presumably has Hcap. Chest x-ray shows developing bibasilar airspace disease compatible with pneumonia. However patient is fluid overloaded on exam. His BNP is 3600. Concern for CHF exacerbation as a component of his symptoms. White count was 25,000 but now normal. BCx NGTD. UCx negative. Continue IV antibiotics for now but will narrow coverage. (2) CHF (congestive heart failure): Code(s): I50.9 - Heart failure, unspecified Status: Acute Assessment and Plan: Echo last month showing EF of 65-70% and grade 1 diastolic dysfunction. He also has mild pulmonary hypertension. Patient with elevated BNP of 3600 and possible CHF on chest x-ray. Clinically appears fluid overloaded but some of this could be related to the very low albumin levels. Overall suspect patient has acute diastolic CHF. Fluid status is better with the Lasix. Will hold Lasix now. Replace potassium today. Check magnesium level. (3) Hyponatremia: Code(s): E87.1 - Hypo-osmolality and hyponatremia Status: Acute Assessment and Plan: Sodium 123 today. This could be lab error. It was 130 yesterday. Sodium does run low at times. Will hold Lasix for now and check serial sodium levels. Check urine studies. These may be askew given he was on Lasix recently. (4) Protein-calorie malnutrition, severe: Code(s): E43 - Unspecified severe protein-calorie malnutrition Status: Acute Assessment and Plan: Patient was seen by speech therapy at the end of June and they recommended minced and moist diet. Mealtime procedures were recommended as well. Will continue minced and moist diet. Continue aspiration precautions. Continue supplements. Continue Megace. (5) Megaloblastic anemia: Code(s): D53.1 - Other megaloblastic anemias, not elsewhere classified Status: Acute Assessment and Plan: Hemoglobin was 8.1. He did drop to 6.6 on 08/11 and transfusion was given. No evidence of acute blood loss. Hgb stable in the 7 range. Continue monitor. Continue Protonix. (6) Alcohol dependence: Code(s): F10.20 - Alcohol dependence, uncomplicated Status: Acute Assessment and Plan: Patient has been abstinent from alcohol for the past 3 months. He has been residing at [place]. He is eating okay. (7) Tobacco dependence: Code(s): F17.200 - Nicotine dependence, unspecified, uncomplicated Status: Acute Assessment and Plan: He last used tobacco to 3 weeks ago. He was educated about the benefits of smoking cessation. (8) Stroke: Code(s): I63.9 - Cerebral infarction, unspecified Status: Acute Assessment and Plan: Brain MRI on 07/17 showing scattered acute infarcts in the cerebellum, bilateral basal ganglia, and bilateral frontal, parietal, and occipital lobes, worst in the occipital lobes and left parietal lobe. Echo showing EF 65-70% with Grade I diastolic dysfunction and an intact interatrial septum. He was on Plavix and Atorvastatin at last discharge. Lipitor resumed. Resumed Plavix. (9) DVT prophylaxis: Code(s): Z29.9 - Encounter for prophylactic measures, unspecified Status: Acute Assessment and Plan: SCDs Subjective Date/time seen: 08/14/21 15:30 Interval history: 56-year-old male with history of alcoholism and malnutrition here for shortness of breath. Resuming care. Chart reviewed. Patient complains of leg pain. Cough productive of yellow sputum. Eating okay. No CP but feels SOB. Ate 75% of breakfast Exam Narrative: AF 97.4 131/65 91 20 95% ra Gen -chronically ill appearing cachectic male lying semi recumbent bed Chest - clear, distant BS bilaterally, nml RR CV - RRR S1/S2 Abd -soft. Nontender. Posit
[2021-08-14 16:46] LABS: Sodium 126 mmol/L (137-145)
[2021-08-14] MEDS: POTASSIUM CHLORIDE 20 MEQ TABLET.ER PO (17:15)
[2021-08-14] MEDS: SODIUM CHLORIDE 500 MG TABLET PO (17:16)
[2021-08-14 19:47] LABS: Sodium 125 mmol/L (137-145)
[2021-08-14] MEDS: ATORVASTATIN 20 MG TABLET PO (21:28)
[2021-08-14 22:00] VITALS: BP 121/82; PULSE 91; RESP 18; TEMP 36.9; O2SAT 96
[2021-08-14 22:11] LABS: Creatinine Urine 65.8 mg/dL
[2021-08-15] VITALS (14 sets, daily range): BP systolic 123–150; BP diastolic 83–92; PULSE 75–101; RESP 16–24; TEMP 36.2–37.1; O2SAT 92–97
[2021-08-15 00:47] LABS: Sodium 127 mmol/L (137-145)
[2021-08-15] MEDS: ACETAMINOPHEN 500 MG TABLET 1000 MG PO (02:32)
[2021-08-15] MEDS: ALPRAZolam (*CRX) 0.125 MG TABLET PO (02:32)
[2021-08-15] MEDS: ALBUTEROL SULFATE NEB 2.5 MG/0.5 ML INH INHALATION ×4 (02:33→21:16)
[2021-08-15] MEDS: methylPREDNISolone SOD SUCC 125 MG VIAL IV PUSH (02:35)
[2021-08-15] MEDS: LEVOTHYROXINE SODIUM 25 MCG TABLET PO (06:18)
[2021-08-15 06:44] LABS: Albumin Level 1.9 g/dL (3.5-5.1); Anion Gap 1 mmol/L (8-16); Blood Urea Nitrogen 13 mg/dL (9-20); Carbon Dioxide 30 mmol/L (22-30); Chloride 95 mmol/L (98-107); Estimated CRCL calculation 108 ml/min; Estimated Glomerular Filt Rate > 60; Glucose 100 mg/dL (65-110); Magnesium 1.3 mg/dL (1.6-2.3); Phosphorus 3.5 mg/dL (2.5-4.5); Sodium 126 mmol/L (137-145)
[2021-08-15] MEDS: CLOPIDOGREL BISULFATE 75 MG TABLET PO (08:58)
[2021-08-15] MEDS: MEGESTROL ACETATE (*CHEMO) ORAL SUSP 40 MG/ML SYR 400 MG PO ×2 (08:58→17:34)
[2021-08-15] MEDS: SODIUM CHLORIDE 500 MG TABLET PO ×2 (08:58→17:34)
[2021-08-15] MEDS: PANTOPRAZOLE 40 MG TABLET PO ×2 (08:58→17:34)
[2021-08-15] MEDS: FOLIC ACID 1 MG TABLET PO (08:58)
[2021-08-15] MEDS: MAGNESIUM OXIDE 400 MG TABLET PO (08:58)
[2021-08-15] MEDS: FERROUS SULFATE 324 MG TABLET PO ×2 (08:58→17:34)
[2021-08-15] MEDS: THIAMINE HCL 100 MG TABLET PO (08:59)
[2021-08-15] MEDS: EUCERIN CREAM 120 GM JAR 1 APPLIC TOPICAL ×2 (08:59→17:34)
--- NOTE | 2021-08-15 11:28 | PCPTNOTE ---
Patient refused treatment this session. Patient states It is not happening today! When I asked the patient why he would not do therapy today, he states I had a bad night last night and I am too tired. Patient educated in the importance of participating in therapy to improve strength, endurance, and mobility. Patient continued to refuse.
--- NOTE | 2021-08-15 13:43 | PCOTNOTE ---
Attempted to see patient for OT, patient refused ADLs or UB exercises, however agreed to assistance to scoot up in bed. Patient CGA to scoot up. Patient on room air upon therapist's entry, RN notified patient's O2 saturation approx. 94%. Will continue plan of care tomorrow.
--- NOTE | 2021-08-15 13:47 | PM.IMPN ---
Progress Note: A&P Assessment and Plan (1) HCAP (healthcare-associated pneumonia): Code(s): J18.9 - Pneumonia, unspecified organism Status: Acute Assessment and Plan: Patient presumably has Hcap. Chest x-ray shows developing bibasilar airspace disease compatible with pneumonia. However patient is fluid overloaded on exam. His BNP is 3600. Concern for CHF exacerbation as a component of his symptoms. White count was 25,000 but now normal. BCx NGTD. UCx negative. Continue IV antibiotics for now but will narrow coverage. (2) CHF (congestive heart failure): Code(s): I50.9 - Heart failure, unspecified Status: Acute Assessment and Plan: Echo last month showing EF of 65-70% and grade 1 diastolic dysfunction. He also has mild pulmonary hypertension. Patient with elevated BNP of 3600 and possible CHF on chest x-ray. Clinically appears fluid overloaded but some of this could be related to the very low albumin levels. Overall suspect patient has acute diastolic CHF. Fluid status is better with the Lasix. Will hold Lasix now. Potassium normal. Check magnesium level. Which was low will replace today (3) Hyponatremia: Code(s): E87.1 - Hypo-osmolality and hyponatremia Status: Acute Assessment and Plan: Sodium 126. This could be lab error. It was 130 yesterday. Sodium does run low at times. Will hold Lasix for now and check serial sodium levels. Check urine studies. These may be asked given he was on Lasix recently. (4) Protein-calorie malnutrition, severe: Code(s): E43 - Unspecified severe protein-calorie malnutrition Status: Acute Assessment and Plan: Patient was seen by speech therapy at the end of June and they recommended minced and moist diet. Mealtime procedures were recommended as well. Will continue minced and moist diet. Continue aspiration precautions. Continue supplements. Continue Megace. (5) Megaloblastic anemia: Code(s): D53.1 - Other megaloblastic anemias, not elsewhere classified Status: Acute Assessment and Plan: Hemoglobin was 8.1. He did drop to 6.6 on 08/11 and transfusion was given. No evidence of acute blood loss. Hgb stable in the 7 range. Continue monitor. Continue Protonix. (6) Alcohol dependence: Code(s): F10.20 - Alcohol dependence, uncomplicated Status: Acute Assessment and Plan: Patient has been abstinent from alcohol for the past 3 months. He has been residing at [place]. He is eating okay. (7) Tobacco dependence: Code(s): F17.200 - Nicotine dependence, unspecified, uncomplicated Status: Acute Assessment and Plan: He last used tobacco to 3 weeks ago. He was educated about the benefits of smoking cessation. (8) Stroke: Code(s): I63.9 - Cerebral infarction, unspecified Status: Acute Assessment and Plan: Brain MRI on 07/17 showing scattered acute infarcts in the cerebellum, bilateral basal ganglia, and bilateral frontal, parietal, and occipital lobes, worst in the occipital lobes and left parietal lobe. Echo showing EF 65-70% with Grade I diastolic dysfunction and an intact interatrial septum. He was on Plavix and Atorvastatin at last discharge. Lipitor resumed. Resumed Plavix. (9) DVT prophylaxis: Code(s): Z29.9 - Encounter for prophylactic measures, unspecified Status: Acute Assessment and Plan: SCDs Subjective Date/time seen: 08/15/21 13:47 Interval history: 56-year-old male with history of alcoholism and malnutrition here for shortness of breath. He reports he had a difficulty breathing last night and got better after he received Xanax. He continues to have some cough. Denies any shortness of breath. Eating okay no chest pain Review of Systems Review of Systems: All systems reviewed & are unremarkable except as noted in HPI and below (HPI) Exam Narrative: Gen -chronically
[2021-08-15] MEDS: MAGNESIUM SULF 2 GM/WATER 50ML 2 GM/50 ML BAG IVPB (15:00)
[2021-08-15] MEDS: ATORVASTATIN 20 MG TABLET PO (21:08)
[2021-08-16] VITALS (10 sets, daily range): BP systolic 105–124; BP diastolic 60–84; PULSE 62–100; RESP 16–20; TEMP 36.1–36.7; O2SAT 91–97
[2021-08-16] MEDS: LEVOTHYROXINE SODIUM 25 MCG TABLET PO (05:42)
[2021-08-16 07:09] LABS: Basophils Percent Auto 0.1 % (0.2-1.2); Hematocrit 24.4 % (42.0-52.0); Hemoglobin 8.2 g/dL (14.0-18.0); Immature Granulocyte Absolute 0.13 K/mm3 (0.00-0.031); Immature Granulocyte Percent A 1.5 % (0-0.5); Lymphocytes Absolute Auto 1.69 K/mm3 (0.9-3.2); Lymphocytes Percent Auto 19.3 % (18.3-44.2); Mean Corpuscular HGB Conc 33.6 g/dl (32-36); Mean Corpuscular Hemoglobin 31.4 pg (26-34); Mean Corpuscular Volume 93.5 fl (80-100); Mean Platelet Volume 8.9 fl (7.4-10.4); Monocytes Absolute Auto 0.8 K/mm3 (0.1-0.6); Monocytes Percent Auto 8.8 % (2.6-8.5); Neutrophils Absolute Auto 6.2 K/mm3 (1.3-6.7); Neutrophils Percent Auto 70.3 % (45.5-73.1); Platelet Count Result 233 k/mm3 (150-375); Red Blood Count 2.61 M/mm3 (4.6-6.20); Red Cell Distribution Width 15.1 % (11.5-14.5); White Blood Count 8.8 K/mm3 (4.5-10.0)
[2021-08-16 07:20] LABS: Anion Gap 2 mmol/L (8-16); Blood Urea Nitrogen 13 mg/dL (9-20); Calcium 7.3 mg/dL (8.4-10.2); Carbon Dioxide 31 mmol/L (22-30); Chloride 97 mmol/L (98-107); Estimated CRCL calculation 108 ml/min; Estimated Glomerular Filt Rate > 60; Glucose 85 mg/dL (65-110); Magnesium 1.8 mg/dL (1.6-2.3); Potassium 3.3 mmol/L (3.4-5.0); Sodium 130 mmol/L (137-145)
[2021-08-16] MEDS: PANTOPRAZOLE 40 MG TABLET PO ×2 (08:28→16:56)
[2021-08-16] MEDS: MEGESTROL ACETATE (*CHEMO) ORAL SUSP 40 MG/ML SYR 400 MG PO ×2 (08:28→16:55)
[2021-08-16] MEDS: CLOPIDOGREL BISULFATE 75 MG TABLET PO (08:28)
[2021-08-16] MEDS: SODIUM CHLORIDE 500 MG TABLET PO ×2 (08:28→16:55)
[2021-08-16] MEDS: MAGNESIUM OXIDE 400 MG TABLET PO (08:28)
[2021-08-16] MEDS: FOLIC ACID 1 MG TABLET PO (08:29)
[2021-08-16] MEDS: POTASSIUM CHLORIDE 20 MEQ TABLET.ER PO (08:29)
[2021-08-16] MEDS: EUCERIN CREAM 120 GM JAR 1 APPLIC TOPICAL ×2 (08:29→16:56)
[2021-08-16] MEDS: THIAMINE HCL 100 MG TABLET PO (08:29)
[2021-08-16] MEDS: FERROUS SULFATE 324 MG TABLET PO ×2 (08:29→16:55)
[2021-08-16] MEDS: ALBUTEROL SULFATE NEB 2.5 MG/0.5 ML INH INHALATION ×3 (09:24→21:05)
--- NOTE | 2021-08-16 14:17 | PM.IMPN ---
Progress Note: A&P Assessment and Plan (1) HCAP (healthcare-associated pneumonia): Code(s): J18.9 - Pneumonia, unspecified organism Status: Acute Assessment and Plan: Patient presumably has Hcap. Chest x-ray shows developing bibasilar airspace disease compatible with pneumonia. Continue Albuterol and IV levaquin, order CXr for helen. Continue PT/ OT (2) CHF (congestive heart failure): Code(s): I50.9 - Heart failure, unspecified Status: Acute Assessment and Plan: Echo last month showing EF of 65-70% and grade 1 diastolic dysfunction. He also has mild pulmonary hypertension. Patient with elevated BNP of 3600 and possible CHF on chest x-ray. Rpt cxr helen pt is off lasix no edema of legs (3) Hyponatremia: Code(s): E87.1 - Hypo-osmolality and hyponatremia Status: Acute Assessment and Plan: Sodium 130 ? secondary to alchololism ? secondary to diuresis pt is off lasix now (4) Protein-calorie malnutrition, severe: Code(s): E43 - Unspecified severe protein-calorie malnutrition Status: Acute Assessment and Plan: Patient was seen by speech therapy at the end of June and they recommended minced and moist diet. Mealtime procedures were recommended as well. Will continue minced and moist diet. Continue aspiration precautions. Continue supplements. Continue Megace. (5) Megaloblastic anemia: Code(s): D53.1 - Other megaloblastic anemias, not elsewhere classified Status: Acute Assessment and Plan: Hemoglobin was 8.1. He did drop to 6.6 on 08/11 and transfusion was given. No evidence of acute blood loss Continue to monitor. (6) Alcohol dependence: Code(s): F10.20 - Alcohol dependence, uncomplicated Status: Acute Assessment and Plan: Patient has been abstinent from alcohol for the past 3 months. He has been residing at [place]. (7) Tobacco dependence: Code(s): F17.200 - Nicotine dependence, unspecified, uncomplicated Status: Acute Assessment and Plan: He last used tobacco to 3 weeks ago. adviced to quit smoking. (8) Stroke: Code(s): I63.9 - Cerebral infarction, unspecified Status: Acute Assessment and Plan: As previously: Brain MRI on 07/17 showing scattered acute infarcts in the cerebellum, bilateral basal ganglia, and bilateral frontal, parietal, and occipital lobes, worst in the occipital lobes and left parietal lobe. Echo showing EF 65-70% with Grade I diastolic dysfunction and an intact interatrial septum. He was on Plavix and Atorvastatin at last discharge. Lipitor resumed. Resumed Plavix. (9) DVT prophylaxis: Code(s): Z29.9 - Encounter for prophylactic measures, unspecified Status: Acute Assessment and Plan: SCDs Subjective Date/time seen: 08/16/21 14:17 Interval history: 56-year-old male with history of alcoholism and malnutrition here for shortness of breath. Pt complains of cough and restless legs otherwise feels better Smoker Review of Systems Review of Systems: All systems reviewed & are unremarkable except as noted in HPI and below Exam Const: General: other (Unkempt man ) Orientation/consciousness: oriented to person HENMT: Head: normal to inspection Resp: Effort & Inspection: no respiratory distress Auscultation: other (BL wheezy lungs up to mid zones ) Cardio: Rate: regular rate Rhythm: regular rhythm GI: Inspection: normal to inspection GI Palp: No abdominal tenderness, No Guarding due to palpation present (GI) and No Hepatomegaly present Auscultation: normal bowel sounds Neuro: General: oriented to person Objective Data Vital Signs Vital Signs: Vital Signs - 24 hr 08/15/21 20:25 08/15/21 21:16 08/15/21 22:00 Temperature 36.7 C Pulse Rate 75 89 75 Respiratory Rate 20 22 H 20 Blood Pressure 125/83 Pulse Oximetry 97 95 97 08/16/21 06:00 08/16/21 09:25 08/16/21 09:33 Te
--- NOTE | 2021-08-16 14:44 | PCPTNOTE ---
Patient refused treatment this session. Patient states he does not feel well and declines PT. Patient was educated again today in the emportance of participating in therapy to improve strength and mobility.
[2021-08-16] MEDS: GABAPENTIN 100 MG CAPSULE PO (16:55)
[2021-08-16] MEDS: ATORVASTATIN 20 MG TABLET PO (21:24)
[2021-08-17] VITALS (13 sets, daily range): BP systolic 112–166; BP diastolic 70–98; PULSE 80–104; RESP 18–20; TEMP 36.5–37; O2SAT 92–98
[2021-08-17] MEDS: LEVOTHYROXINE SODIUM 25 MCG TABLET PO (05:48)
[2021-08-17 07:12] LABS: Hematocrit 25.4 % (42.0-52.0); Hemoglobin 8.7 g/dL (14.0-18.0); Mean Corpuscular HGB Conc 34.3 g/dl (32-36); Mean Corpuscular Hemoglobin 31.4 pg (26-34); Mean Corpuscular Volume 91.7 fl (80-100); Mean Platelet Volume 8.8 fl (7.4-10.4); Platelet Count Result 230 k/mm3 (150-375); Red Blood Count 2.77 M/mm3 (4.6-6.20); Red Cell Distribution Width 15.5 % (11.5-14.5); White Blood Count 8.9 K/mm3 (4.5-10.0)
[2021-08-17 07:33] LABS: Anion Gap 3 mmol/L (8-16); Blood Urea Nitrogen 11 mg/dL (9-20); Calcium 7.5 mg/dL (8.4-10.2); Carbon Dioxide 29 mmol/L (22-30); Chloride 99 mmol/L (98-107); Estimated CRCL calculation 127 ml/min; Estimated Glomerular Filt Rate > 60; Glucose 90 mg/dL (65-110); Potassium 3.3 mmol/L (3.4-5.0); Sodium 131 mmol/L (137-145)
[2021-08-17] MEDS: FOLIC ACID 1 MG TABLET PO (08:16)
[2021-08-17] MEDS: PANTOPRAZOLE 40 MG TABLET PO ×2 (08:16→17:07)
[2021-08-17] MEDS: MAGNESIUM OXIDE 400 MG TABLET PO (08:16)
[2021-08-17] MEDS: MEGESTROL ACETATE (*CHEMO) ORAL SUSP 40 MG/ML SYR 400 MG PO ×2 (08:16→17:07)
[2021-08-17] MEDS: FERROUS SULFATE 324 MG TABLET PO ×2 (08:16→17:06)
[2021-08-17] MEDS: SODIUM CHLORIDE 500 MG TABLET PO ×2 (08:16→17:08)
[2021-08-17] MEDS: THIAMINE HCL 100 MG TABLET PO (08:17)
[2021-08-17] MEDS: GABAPENTIN 100 MG CAPSULE PO ×3 (08:17→17:06)
[2021-08-17] MEDS: POTASSIUM CHLORIDE 20 MEQ PACKET (FOR LIQUID) 40 MEQ PO (08:17)
[2021-08-17] MEDS: CLOPIDOGREL BISULFATE 75 MG TABLET PO (08:17)
[2021-08-17] MEDS: EUCERIN CREAM 120 GM JAR 1 APPLIC TOPICAL ×2 (08:18→17:07)
[2021-08-17] MEDS: ALBUTEROL SULFATE NEB 2.5 MG/0.5 ML INH INHALATION ×3 (08:45→21:24)
--- NOTE | 2021-08-17 10:37 | PM.DS ---
DS: Admitting Diagnosis Discharge Date 08/17/21 Admitting Diagnosis Shortness of breath DS: Discharge Diagnosis Discharge Diagnosis (1) HCAP (healthcare-associated pneumonia): Code(s): J18.9 - Pneumonia, unspecified organism Status: Acute Assessment and Plan: Patient presents with SOB and cough. Chest x-ray shows developing bibasilar airspace. WBC was 25K. No fevers. He was started on broad spectrum abx. Urine and Blood Cx negative. Treated with Albuterol. WBC normalized. Abx de-escalated to IV levaquin. Repeat CXR showing airspace opacities in RLL zone and left mid and lower lung zones with worsening on the left. Clinically patient improving. (2) CHF (congestive heart failure): Code(s): I50.9 - Heart failure, unspecified Status: Acute Assessment and Plan: Echo last month showing EF of 65-70% and grade 1 diastolic dysfunction. He also has mild pulmonary hypertension. Patient with elevated BNP of 3600 and possible CHF on chest x-ray. Clinically appears fluid overloaded but some of this could be related to the very low albumin levels. Overall suspect patient has acute diastolic CHF. Treated with IV Lasix with improved fluid status. lasix held due to Hyponatremia. (3) Hyponatremia: Code(s): E87.1 - Hypo-osmolality and hyponatremia Status: Acute Assessment and Plan: Sodium dropped to 123. Sodium does run low at times. [place] realted to Lasix. Lasix held and Na level climbed to 130. (4) Protein-calorie malnutrition, severe: Code(s): E43 - Unspecified severe protein-calorie malnutrition Status: Acute Assessment and Plan: Patient was seen by speech therapy at the end of June and they recommended minced and moist diet. Mealtime procedures were recommended as well. We continued minced and moist. Aspiration precautions. Megace was continued. (5) Megaloblastic anemia: Code(s): D53.1 - Other megaloblastic anemias, not elsewhere classified Status: Acute Assessment and Plan: Hemoglobin was 8.1. Hgb did drop to 6.6 on 08/11 and transfusion was given. No evidence of acute blood loss. Hgb stable in the 7-8 range. Stool for occult blood was negative last month. (6) Alcohol dependence: Code(s): F10.20 - Alcohol dependence, uncomplicated Status: Acute Assessment and Plan: Patient has been abstinent from alcohol for the past 3 months. He has been residing at [place]. (7) Tobacco dependence: Code(s): F17.200 - Nicotine dependence, unspecified, uncomplicated Status: Acute Assessment and Plan: He last used tobacco to 3 weeks prior to admission. He was educated about the benefits of smoking cessation. (8) Stroke: Code(s): I63.9 - Cerebral infarction, unspecified Status: Acute Assessment and Plan: Brain MRI on 07/17 showing scattered acute infarcts in the cerebellum, bilateral basal ganglia, and bilateral frontal, parietal, and occipital lobes, worst in the occipital lobes and left parietal lobe. Echo showing EF 65-70% with Grade I diastolic dysfunction and an intact interatrial septum. He was on Plavix and Atorvastatin and this was resumed. He worked well with PT OT DS: Summary Hospital Course Reason for hospitalization: 56-year-old male with history of alcoholism and malnutrition here for shortness of breath. Please see H&P for details. Hospital Course: Please see above for details of hospital course. Status at Discharge Cognitive/behavioral status at discharge: Stable Time Spent with Patient Time attestation: Total time spent providing and/or coordinating discharge services: 34 minutes. Time spent: Greater than 30 minutes Exam Narrative: AF 98.6 120/85 85 20 98% ra Gen -chronically ill appearing cachectic male lying semi recumbent bed Chest - distant clear BS with few end expiratory wheezes, nml RR CV - RRR S1/S2 Abd -soft. Nontender. P
--- NOTE | 2021-08-17 10:38 | PCOTNOTE ---
Attempted to see patient this am, however patient declined stating, No. Not right now. I'm sorry I'm being such a weiney on therapy.
--- NOTE | 2021-08-17 11:44 | PCPTNOTE ---
Patient refused treatment this session. Patient states Not now. This is the 3rd refusal of PT in three days.
--- NOTE | 2021-08-17 12:59 | PC.NURSE ---
pt back to floor to room 322 bed 2 from GI lab at 1300.
--- NOTE | 2021-08-17 14:09 | PC.NURSE ---
On 08/17/21, the student, Shyanne Zaragoza [facility], provided care and completed [facility] documentation on this patient. I have reviewed the student's documentation and agree with the findings.
--- NOTE | 2021-08-17 14:42 | PCNWS ---
Weekly nutritional screen. Patient is tolerating current diet with adequate intake. Plans for discharge today. No nutritional needs at this time.
[2021-08-17] MEDS: ATORVASTATIN 20 MG TABLET PO (20:43)
== END 2021-08-18 02:20 | DRG 139 ==
LOC: ANHED 16:24 → ANH3MEDSUR 08-11 07:32
PROVIDERS: Family Medicine; Internal Medicine; Admitting Provider Internal Medicine; Emergency Provider Emergency Medicine; PCP Family Medicine; Visit Provider Internal Medicine
DX: J18.9 Pneumonia, unspecified organism (principal); I63.9 Cerebral infarction, unspecified; Z20.822 Contact with and (suspected) exposure to COVID-19; Y95 Nosocomial condition; E43 Unspecified severe protein-calorie malnutrition; Z68.1 Body mass index [BMI] 19.9 or less, adult; D53.1 Other megaloblastic anemias, not elsewhere classified; F10.20 Alcohol dependence, uncomplicated; F17.210 Nicotine dependence, cigarettes, uncomplicated; E87.1 Hypo-osmolality and hyponatremia; E87.6 Hypokalemia; I11.0 Hypertensive heart disease with heart failure; I27.20 Pulmonary hypertension, unspecified; I50.31 Acute diastolic (congestive) heart failure; Z66 Do not resuscitate; Z79.899 Other long term (current) drug therapy
CPT/HCPCS: 36415; 36430; 36600; 51701; 71045; 80048; 80053; 80069; 80202; 81001; 82570; 82805; 83735; 83880; 84100; 84295; 84484; 85014; 85018; 85025; 85027; 85610; 85730; 86850; 86900; 86901; 86920; 87040; 87086; 93005; 94640; 97110; 97162; 97166; 97530; 97535; 99285; A9270; C9803; J1940; J1956; J2930; J3370; J3475; J3480; J7050; P9016; U0003; U0005

== ENCOUNTER 2021-08-20 12:30 | Emergency (ER) | payer OTHER, SELFPAY ==
[2021-08-20] VITALS (26 sets, daily range): BP systolic 112–140; BP diastolic 80–108; PULSE 68–110; RESP 14–24; TEMP 36.6; O2SAT 96–100
--- NOTE | ~2021-08-20 | CT_ITS ---
EXAMINATION: CT brain wo con EXAM DATE: 08/20/2021 13:06 INDICATION: Fall, on blood thinners. Recent left occipital infarction. TECHNIQUE: Spiral CT of the head was performed without contrast. Axial, coronal and sagittal images were reviewed. The dose-length product (DLP) for this examination was 681.00 mGy-cm. The exposure w as tailored according to patient size, and iterative reconstruction (ASIR) was used as additional dos e reduction technique. Comparison is made to prior examination from 07/18/2021. FINDINGS: There is expected interval evolution of the previously seen moderate sized left occipital l obe infarction. There is no hemorrhagic conversion. There are punctate old left basal ganglia and lef t periventricular infarction. There is small old right occipital lobe infarction. There is mild microangiopathy and moderate cerebral atrophy. No obstructive hydrocephalus, brain mass , extra-axial collections or acute intracranial hemorrhage. Small amount of low-density fluid in the left maxillary sinus. Mild bilateral ethmoid mucoperiosteal thickening. Mastoid air cells are well ae rated. IMPRESSION: 1. Expected evolution of previously seen moderate sized left occipital lobe infarction. 2. Small old infarctions. 3. Microangiopathy and atrophy. Reviewed, dictated and finalized at location A. IMPRESSION: 1. Expected evolution of previously seen moderate sized left occipital lobe in farction. 2. Small old infarctions. 3. Microangiopathy and atrophy.
--- NOTE | ~2021-08-20 | XR_ITS ---
EXAMINATION: XR chest 1V portable EXAM DATE: 08/20/2021 12:59 INDICATION: Dyspnea, fall, rib pain. Weakness. TECHNIQUE: Portable AP frontal chest x-ray was obtained. Comparison is made to prior examination from 08/17/2021, 08/10/2021, 07/26/2021, 07/16/2020. FINDINGS: There is moderate, segmental amount of bilateral lower lobe ill-defined opacity most consis tent with acute infectious process. Please clinically correlate. This has been progressing compared t o previous examinations from earlier this month, appears to have developed compared to x-ray from 06/26. Possibilities include influenza, COVID pneumonia, pulmonary edema or hemorrhage. Some medical doctor janie processes that can have this appearance include cryptogenic organizing pneumonia, desquamative in terstitial pneumonia, nonspecific interstitial pneumonia, drug toxicity, connective tissue disease. Cannot identify any displaced rib fracture. Cardiomediastinal silhouette is normal. There is no pneum othorax suspected. No sizable pleural effusion. IMPRESSION: Progression of ill-defined bilateral lower lobe airspace disease more likely acute than c hronic process. Clinical correlation. Reviewed, dictated and finalized at location A. IMPRESSION: Progression of ill-defined bilateral lower lobe airspace disease mo re likely acute than chronic process. Clinical correlation.
--- NOTE | ~2021-08-20 | CT_ITS ---
EXAMINATION: CT brain wo con EXAM DATE: 08/21/2021 02:52 INDICATION: Trauma, head injury. TECHNIQUE: Spiral CT of the head was performed without contrast. Axial, coronal and sagittal images were reviewed. The dose-length product (DLP) for this examination was 681.00 mGy-cm. The exposure w as tailored according to patient size, and iterative reconstruction (ASIR) was used as additional dos e reduction technique. Comparison is made to prior examination from 08/20/2021. FINDINGS: There is late subacute left occipital lobe infarction, with encephalomalacia beginning to develop. There are punctate old left basal ganglia and left periventricular infarctions. There is sma ll old right occipital lobe infarction. There is mild microangiopathy and moderate cerebral atrophy. No obstructive hydrocephalus, brain mass , extra-axial collections or acute intracranial hemorrhage. Mild to moderate left maxillary, bilatera l ethmoid and right sphenoid opacity from mucoperiosteal thickening and fluid. There is left frontal scalp laceration and small contusion. No underlying calvarial fracture. Mastoid air cells are well ae rated. IMPRESSION: 1. Development of left frontal scalp laceration, small contusion. 2. Infarctions unchanged, largest late subacute age in the left occipital lobe with developing encep halomalacia. 3. Microangiopathy and atrophy. 4. Mild to moderate sinus opacity. Reviewed, dictated and finalized at location A. IMPRESSION: 1. Development of left frontal scalp laceration, small contusion. 2. Infarctions unchanged, largest late subacute age in the left occipital lobe with developing encephalomalacia. 3. Microangiopathy and atrophy. 4. Mild to moderate sinus opacity.
--- NOTE | 2021-08-20 12:39 | ECG_ITS ---
Measurements Intervals [place] Rate: 91 P: 49 DC: 133 QRS: 7 QRSD: 97 T: 63 QT: 378 QTc: 466 Interpretive Statements SINUS RHYTHM RIGHT BUNDLE BRANCH BLOCK LOW QRS VOLTAGE- DIFFUSE LEADS INCOMPLETE RIGHT BUNDLE BRANCH BLOCK BASELINE ARTIFACT- I, II, III, AVR, AVL, AVF, V1-V2, V4 ABNORMAL ECG Electronically Signed On 08-20-2021 19:22:26 CDT by James Cox D.O.
[2021-08-20 13:28] LABS: Basophils Percent Auto 0.5 % (0.2-1.2); Hematocrit 28.5 % (42.0-52.0); Hemoglobin 9.4 g/dL (14.0-18.0); Immature Granulocyte Absolute 0.14 K/mm3 (0.00-0.031); Immature Granulocyte Percent A 1.6 % (0-0.5); Lymphocytes Absolute Auto 0.99 K/mm3 (0.9-3.2); Lymphocytes Percent Auto 11.6 % (18.3-44.2); Mean Corpuscular Hemoglobin 31.4 pg (26-34); Mean Corpuscular Volume 95.3 fl (80-100); Mean Platelet Volume 9.4 fl (7.4-10.4); Monocytes Absolute Auto 0.6 K/mm3 (0.1-0.6); Neutrophils Absolute Auto 6.8 K/mm3 (1.3-6.7); Neutrophils Percent Auto 79.3 % (45.5-73.1); Platelet Count Result 225 k/mm3 (150-375); Red Blood Count 2.99 M/mm3 (4.6-6.20); Red Cell Distribution Width 16.6 % (11.5-14.5); White Blood Count 8.5 K/mm3 (4.5-10.0)
[2021-08-20 13:40] LABS: Alanine Aminotransferase 23 U/L (4-50); Albumin Level 2.5 g/dL (3.5-5.1); Alkaline Phosphatase 79 U/L (38-126); Anion Gap 3 mmol/L (8-16); Aspartate Amino Transferase 65 U/L (17-59); Bilirubin,Total 0.4 mg/dL (0.2-1.3); Blood Urea Nitrogen 14 mg/dL (9-20); Calcium 7.5 mg/dL (8.4-10.2); Carbon Dioxide 30 mmol/L (22-30); Chloride 101 mmol/L (98-107); Estimated CRCL calculation 92 ml/min; Estimated Glomerular Filt Rate > 60; Glucose 92 mg/dL (65-110); Potassium 4.1 mmol/L (3.4-5.0); Sodium 134 mmol/L (137-145)
[2021-08-20 13:41] LABS: INR 0.9; Prothrombin Time 12.1 Seconds (11.1-14.7)
[2021-08-20 13:42] LABS: Partial Thromboplastin Time 30.9 SECONDS (22.3-36.8)
--- NOTE | 2021-08-20 13:42 | ED.FALL ---
HPI - Fall General Chief Complaint: Fall Stated Complaint: L rib pain s/p fall History of Present Illness HPI Narrative: Patient presents with a fall. Patient was recently discharged from this institution with pneumonia and CHF exacerbation. He was at a nursing facility using his prescribed oxygen attempted to stand up felt weakness legs and fell on his right chest. Is now reporting left-sided chest pain that is achy, const, no radiation, worse with inspiration. Is on Eliquis but denies striking his head or denies any loss of consciousness. Reports a history of lower extremity weakness but it appears worse since his discharge he has not noted increasing cough or shortness of breath. Related Data Home Medications Medication Instructions Recorded Confirmed ferrous sulfate 324 mg PO BID 07/27/21 08/20/21 levothyroxine 25 mcg PO DAILY 07/27/21 08/20/21 Allergies Allergy/AdvReac Type Severity Reaction Status Date / Time amoxicillin Allergy Rash Verified 08/20/21 12:38 Review of Systems Review of Systems: CONSTITUTIONAL: Denies fever, chills, or sweats. EYES: Denies visual changes, redness, or discharge. ENT: Denies rhinorrhea, congestion, sore throat, or otalgia. CARDIOVASCULAR: Denies palpitations, or edema. RESPIRATORY: Denies worsening cough or worsening dyspnea. GASTROINTESTINAL: Denies abdominal pain, nausea, vomiting, or diarrhea. GENITOURINARY: Denies dysuria or hematuria. SKIN: Denies rash or itching. MUSCULOSKELETAL: Denies back pain, joint pain, or myalgia. NEUROLOGIC: Denies headache, numbness, dizziness, or weakness. PSYCHIATRIC: Denies anxiety or depression. All systems reviewed & are unremarkable except as noted in HPI and below PMFSH Past Medical History Medical History Hypertension Tobacco dependence Surgical History Surgical History History of excision of testicular mass With benign histology. Family History Family History Father Chronic obstructive pulmonary disease Congestive heart failure Hypertension Mother Abdominal aortic aneurysm rupture Daughter Type 1 diabetes mellitus Social History Social History Social History: Surrogate decision maker: Bere Gagnon, sister. Code status: Full code. Smoking packs per day: 1 Smoking cigarettes per day: 20.0 Years smoked: 35 Smoking pack-years: 35.00 Smoking status: Current some day smoker Tobacco type: cigarettes Alcohol intake: former Drinks per week: 4 Alcohol use details: 3 to 4 beers per week. Substance use: former Substance use type: does not use Additional living arrangements comments: The patient lives in [place] with his brother. They are both currently unemployed and are living on food stamps. Additional occupation/education comments: Currently unemployed. Gender identity (if verbalized by the patient): Male Spiritual care concerns: No Exam Narrative: GENERAL: Well-appearing, well-nourished, and in no acute distress. HEAD: Normocephalic, atraumatic. EYES: PERRLA and EOMI. ENT: Nares clear, no rhinorrhea or epistaxis. Mucous membranes moist. NECK: Supple. No masses. No JVD CHEST: Diffuse rhonchi. HEART: Regular rate and rhythm. No murmur heard. Normal peripheral pulses. ABDOMEN: Soft, nontender, nondistended, normal active bowel sounds. EXTREMITIES: Normal range of motion. No edema. SKIN: Warm, dry, no rash. NEURO: No focal deficits. Alert and oriented x3. PSYCH: Normal mood and affect. Course Reevaluation(s) Reevaluation #1: Patient resting comfortably results and plan reviewed with patient. Patient comfortable with outpatient plan. Patient is already in rehab facility to assist with strengthening as he has a known history of lowe
[2021-08-20] MEDS: SODIUM CHLORIDE 0.9% IV 500 ML 999 ML IV CONT (13:54)
[2021-08-20 14:04] LABS: Add Urine Microscopic? NO; Appearance Urine Clear (Clear); Bilirubin Urine Negative (Negative); Blood Urine Negative (Negative); Color Urine Yellow (Yellow); Glucose Urine UA Negative (Negative); Ketones Urine Negative (Negative); Leukocyte Esterase Ur Negative LEU/UL (Negative); Nitrate Urine Negative (Negative); Protein Urine Negative (Negative); Urobilinogen Urine Negative mg/dL (<2.0)
[2021-08-20 14:26] LABS: Lactic Acid Reflex 1.6 mmol/L (0.7-2.1)
--- NOTE | 2021-08-20 14:59 | PC.NURSE ---
made contact with [facility], and [facility] to transfer pt to [facility] in [place]. all companies declined. made contact with [facility] to transfer pt eta [id number]
[2021-08-20] MEDS: fentaNYL CITRATE INJ (*CRX) 100 MCG/2 ML VIAL 50 MCG IV PUSH (15:01)
--- NOTE | 2021-08-20 19:19 | PC.NURSE ---
Addendum entered by Jade Harman 08/20/21 19:36: [facility] - no truck available kandice Original Note: [facility] - no truck available
--- NOTE | 2021-08-20 19:49 | PC.NURSE ---
called [facility] - no truck available
[2021-08-21 00:13] VITALS: BP 144/77; PULSE 77; RESP 18; O2SAT 96
--- NOTE | 2021-08-21 01:44 | PC.NURSE ---
[facility] called with ETA update of [id number]
--- NOTE | 2021-08-21 02:00 | PC.NURSE ---
pt placed on fall alarm. yellow triangle attached to bracelet and door
--- NOTE | 2021-08-21 02:05 | PC.NURSE ---
[facility] called with ETA update of 0245. Informed Chen there may be a delay sending the patient and requested they call the ED before sending the unit.
[2021-08-21 03:03] VITALS: BP 132/72; PULSE 77; RESP 18; O2SAT 96
--- NOTE | 2021-08-21 04:10 | PC.NURSE ---
called [facility] to request transport. ETA [id number]
[2021-08-21 04:50] VITALS: BP 140/70; PULSE 88; RESP 18; O2SAT 96
--- NOTE | 2021-08-21 06:07 | PC.NURSE ---
[facility] here.
== END 2021-08-21 06:07 ==
PROVIDERS: Emergency Provider Emergency Medicine; PCP Family Medicine
DX: J18.9 Pneumonia, unspecified organism (principal); S01.112A Laceration without foreign body of left eyelid and periocular area, initial encounter; I10 Essential (primary) hypertension; F17.210 Nicotine dependence, cigarettes, uncomplicated; Z79.01 Long term (current) use of anticoagulants; W19.XXXA Unspecified fall, initial encounter; W01.10XA Fall on same level from slipping, tripping and stumbling with subsequent striking against unspecified object, initial encounter
CPT/HCPCS: 12013; 36415; 51701; 70450; 71045; 80053; 81003; 83605; 85025; 85610; 85730; 87040; 93005; 96361; 96374; 99284; J3010; J7040

== ENCOUNTER 2021-08-25 23:05 | Inpatient (IN) | payer OTHER, SELFPAY ==
--- NOTE | ~2021-08-25 | US_ITS ---
EXAMINATION: US venous doppler LE EXAM DATE: 08/28/2021 17:41 INDICATION: Bilateral leg edema. TECHNIQUE: Multiple grayscale, color flow and Doppler images of the lower extremity deep venous syste ms bilaterally were obtained and reviewed. Comparison is made to prior examination from 07/17/2021. FINDINGS: Right side: The right common femoral, femoral and profunda veins demonstrate normal color flow, respi ratory variation, augmentation and compressibility. Compressibility, color flow confirmed within the right popliteal, posterior tibial, peroneal, and greater saphenous veins. Left side: The left common femoral, femoral and profunda veins demonstrate normal color flow, respira tory variation, augmentation and compressibility. Compressibility, color flow confirmed within the l eft popliteal, posterior tibial, peroneal, and greater saphenous veins. IMPRESSION: No lower extremity deep venous thrombosis bilaterally. Reviewed, dictated and finalized at location A.
--- NOTE | ~2021-08-25 | CT_ITS ---
EXAMINATION: CTA chest PE protocol DATE: 08/29/2021 11:17 INDICATION: Shortness of breath. TECHNIQUE: Computed tomography angiography (CTA) of the chest was performed with 100 mL Omnipaque-350 intravenous contrast timed to evaluate the pulmonary arteries. Coronal maximum intensity projection 3D-reconstructions were created by the technologist. Automated exposure control and iterative reconst ruction technique were employed. The dose-length product was 388.72 mGy-cm. COMPARISON: Chest CT 04/28/2021 FINDINGS: There are moderate-sized bilateral pleural effusions. There is dependent passive atelectasi s bilaterally. There is mild emphysema. There are areas of septal thickening and mild [place] in right upper lobe and lingula. The heart size is normal. There are coronary artery calcifica tions. No pericardial effusion. There is no pulmonary embolus. There is a small volume of ascites. Th ere is mild thoracic spondylosis. IMPRESSION: 1. No pulmonary embolus. 2. Moderate-sized bilateral pleural effusions. 3. Mild emphysema. 4. Mild lung disease in right upper lobe and lingula, consistent with mild pulmonary edema versus mil d inflammation/infection. 5. Small volume of ascites. Reviewed, dictated and finalized at location A. IMPRESSION: 1. No pulmonary embolus. 2. Moderate-sized bilateral pleural effusions. 3. Mild emphysema. 4. Mild lung disease in right upper lobe and lingula, consistent with mild pulm onary edema versus mild inflammation/infection. 5. Small volume of ascites.
--- NOTE | ~2021-08-25 | XR_ITS ---
XR chest 1V portable 08/26/2021 08:46 Indication: Shortness of breath with cough Procedure: AP portable chest Comparison: Comparison to multiple prior studies sequentially, with oldest reviewed study dated 08/10. Findings: Heart size normal. Diffuse bilateral airspace disease has progressed since prior examinatio ns. No pneumothorax. Small right pleural effusion. No pneumothorax. No acute osseous abnormality. Impression: 1: Progression of diffuse bilateral airspace disease which may represent edema and/or pneumonia. 2: Small right pleural effusion. Reviewed, dictated and finalized at location A. Impression: 1: Progression of diffuse bilateral airspace disease which may represent edema and/or pneumonia. 2: Small right pleural effusion.
[2021-08-25 23:04] VITALS: BP 131/93; PULSE 75; RESP 17; TEMP 36.6; O2SAT 100
[2021-08-25 23:12] VITALS: RESP 17; O2SAT 100
[2021-08-25 23:15] VITALS: PULSE 77; RESP 20
[2021-08-25 23:30] VITALS: PULSE 77; RESP 18
--- NOTE | 2021-08-25 23:35 | PC.NURSE ---
Patient placed on bed alarm, history of falls.
[2021-08-25 23:45] VITALS: PULSE 72; RESP 17
[2021-08-25 23:48] LABS: Basophils Percent Auto 0.5 % (0.2-1.2); Eosinophils Percent Auto 0.3 % (0-4.4); Hematocrit 21.1 % (42.0-52.0); Immature Granulocyte Absolute 0.24 K/mm3 (0.00-0.031); Immature Granulocyte Percent A 4.1 % (0-0.5); Immature Reticulocyte Fraction 19.3 % (3.0-15.9); Lymphocytes Percent Auto 27.4 % (18.3-44.2); Mean Corpuscular HGB Conc 32.7 g/dl (32-36); Mean Corpuscular Hemoglobin 31.4 pg (26-34); Mean Corpuscular Volume 95.9 fl (80-100); Mean Platelet Volume 9.4 fl (7.4-10.4); Monocytes Absolute Auto 0.4 K/mm3 (0.1-0.6); Monocytes Percent Auto 7.5 % (2.6-8.5); Neutrophils Absolute Auto 3.5 K/mm3 (1.3-6.7); Neutrophils Percent Auto 60.2 % (45.5-73.1); Platelet Count Result 290 k/mm3 (150-375); Red Cell Distribution Width 17.1 % (11.5-14.5); Reticulocyte Hemoglobin Conten 32.6 pg (28.2-35.7); Reticulocytes Absolute 0.03 B/L (32.2-175.7); White Blood Count 5.8 K/mm3 (4.5-10.0)
[2021-08-26] VITALS (32 sets, daily range): BP systolic 126–164; BP diastolic 69–103; PULSE 57–78; RESP 12–20; TEMP 35.8–37.8; O2SAT 95–100; BMI 18.5; BMI 18.2
[2021-08-26 00:04] LABS: Alanine Aminotransferase 15 U/L (4-50); Albumin Level 1.9 g/dL (3.5-5.1); Alkaline Phosphatase 86 U/L (38-126); Anion Gap 4 mmol/L (8-16); Aspartate Amino Transferase 34 U/L (17-59); Bilirubin,Total 0.3 mg/dL (0.2-1.3); Blood Urea Nitrogen 14 mg/dL (9-20); Calcium 6.7 mg/dL (8.4-10.2); Carbon Dioxide 25 mmol/L (22-30); Chloride 104 mmol/L (98-107); Estimated Glomerular Filt Rate > 60; Glucose 100 mg/dL (65-110); Lactate Dehydrogenase 516 U/L (313-618); Potassium 3.6 mmol/L (3.4-5.0); Sodium 133 mmol/L (137-145)
[2021-08-26 00:11] LABS: Hemoglobin 6.9 g/dL (14.0-18.0)
[2021-08-26 00:14] LABS: Atypical Lymphocytes Present; Platelet Estimate Adequate (Adequate)
[2021-08-26] MEDS: TUBING, BLOOD PLUM PUMP TUBING 1 EACH XX (02:02)
[2021-08-26] MEDS: SODIUM CHLORIDE 0.9% IV 250 ML 30 ML IV CONT (02:06)
--- NOTE | 2021-08-26 02:18 | ED.GENADULT ---
HPI - General Adult General Chief complaint: Recheck/Abnormal Lab/Rx Stated complaint: abnormal labs/ platelets & hemaglobin Time Seen by Provider: 08/26/21 00:04 History of Present Illness HPI narrative: Patient is a 56-year-old male who presents ER with a critically low hemoglobin found on outside labs. Denies any rectal bleeding or hematemesis. Has history of chronic anemia. Recently seen in the ER and discharged back to [facility]. Patient is severely debilitated from CVA and alcohol abuse. Related Data Home Medications Medication Instructions Recorded Confirmed ferrous sulfate 324 mg PO BID 07/27/21 08/20/21 levothyroxine 25 mcg PO DAILY 07/27/21 08/20/21 Allergies Allergy/AdvReac Type Severity Reaction Status Date / Time amoxicillin Allergy Rash Verified 08/20/21 12:38 Review of Systems Review of Systems: All systems reviewed & are unremarkable except as noted in HPI and below Constitutional: Constitutional: Denies chills, Denies fever(s) and Denies weakness ENT: Denies nasal congestion and Denies sore throat Cardiovascular: Cardiovascular: Denies chest pain, Denies rapid heart rate and Denies radiating jaw, neck or arm pain Respiratory: Respiratory: Denies cough and Denies dyspnea Gastrointestinal: Gastrointestinal: Denies abdominal pain, Denies nausea and Denies vomiting PMF Past Medical History Medical History (Updated 08/26/21 @ 02:53 by Je Dee MD) Adult failure to thrive CHF (congestive heart failure) Hypertension Stroke Tobacco dependence Surgical History Surgical History History of excision of testicular mass With benign histology. Family History Family History Father Chronic obstructive pulmonary disease Congestive heart failure Hypertension Mother Abdominal aortic aneurysm rupture Daughter Type 1 diabetes mellitus Social History Social History Social History: Surrogate decision maker: Bere Gisselletipjewelshoda, sister. Code status: Full code. Smoking packs per day: 1 Smoking cigarettes per day: 20.0 Years smoked: 35 Smoking pack-years: 35.00 Smoking status: Current some day smoker Tobacco type: cigarettes Alcohol intake: former Drinks per week: 4 Alcohol use details: 3 to 4 beers per week. Substance use: former Substance use type: does not use Additional living arrangements comments: The patient lives in [place] with his brother. They are both currently unemployed and are living on food stamps. Additional occupation/education comments: Currently unemployed. Gender identity (if verbalized by the patient): Male Spiritual care concerns: No Exam Narrative: GENERAL: Chronically ill-appearing, well-nourished, and in no acute distress. HEAD: Normocephalic, atraumatic. Scabbed laceration with suture intact left forehead. EYES: PERRL and EOMI. ENT: Mucous membranes moist. CHEST: Clear to auscultation. No respiratory distress. HEART: Regular rate and rhythm. Normal peripheral pulses. ABDOMEN: Soft, nontender, nondistended, heme-negative stool on SANDRA. EXTREMITIES: Normal range of motion. 2+ edema left lower extremity. SKIN: Warm, dry, no rash. NEURO: Alert and oriented x2-3. Course Course Emergency Course: Admit to hospitalist service. Will transfuse. Vital Signs Vital signs: Vital Signs Temperature 97.9 F 08/25/21 23:04 Pulse Rate 75 08/25/21 23:04 Respiratory Rate 17 08/25/21 23:04 Blood Pressure 131/93 H 08/25/21 23:04 Pulse Oximetry 100 08/25/21 23:04 Temperature 97.0 F L 08/26/21 02:25 Pulse Rate 65 08/26/21 02:25 Respiratory Rate 15 08/26/21 02:25 Blood Pressure 129/98 H 08/26/21 02:25 Pulse Oximetry 99 08/26/21 02:25 Medical Decision Making Vital Signs Vital Signs: Vital Sig
[2021-08-26] MEDS: MORPHINE SULFATE (*CRX) 4 MG/ML INJ IV PUSH (04:51)
--- NOTE | 2021-08-26 04:59 | ADMGEN ---
This patient, Simon Barraza, was admitted to 3 Med Surg Room 315-01. Patient/family oriented to hospital policies and general routines including ID bracelet, bed and alarms, visiting hours, pain management, procedures, bathroom and other care routines, personal items, smoking policy, room service/diet, and visiting hours. Information on how to activate the Rapid Response Team has been discussed. Patient/Family are encouraged to report perceived risks to care and to ask questions if they do not understand what they are told or what they should do.
--- NOTE | 2021-08-26 08:20 | PM.IMHP ---
H&P: HPI History of Present Illness Date/Time: 08/26/21 08:20 He is a 56-year-old male with past medical history of hypertension, hyperlipidemia, history of CVA with significant left-sided residual weakness, chronic anemia and history of alcohol abuse who was [facility] here [facility] with hemoglobin. Blood pressure he was not feeling well. He was having some generalized weakness and was feeling tiredness as. He was complaining of some on and off chest pain in the upper chest in the retrosternal area. He did mention to have some shortness of breath as well. He denied have any nausea vomiting abdominal pain. He denied have any hematochezia or melena. He denied have any fever chills. He denied have any swelling or pain in the bilateral lower extremity. His labs were checked in the [facility] and was found to have low hemoglobin. He was sent over to emergency department. He was given 2 units of PRBC transfusion. He was recently admitted to the hospital and was discharged on 08/17. He was treated for pneumonia and CHF exacerbation. He required transfusion on 08/11. Does have history of chronic anemia. He did not have any evidence of GI bleed. At the time of my evaluation, he was feeling better. He denied have any shortness of breath, tiredness and fatigue. Chief Complaint: Abnormal lab work Review of Systems Review of Systems: A comprehensive review of systems has been reviewed with the patient and most of the symptoms are negative except the one's mentioned above in HPI. [facility] Past Medical History Medical History (Updated 08/26/21 @ 08:31 by Mary Bravo MD) Adult failure to thrive CHF (congestive heart failure) Hypertension Stroke Tobacco dependence Surgical History Surgical History History of excision of testicular mass With benign histology. Family History Family History Father Chronic obstructive pulmonary disease Congestive heart failure Hypertension Mother Abdominal aortic aneurysm rupture Daughter Type 1 diabetes mellitus Social History Social History Social History: Surrogate decision maker: Bere Gisselletipkaty, sister. Code status: Full code. Smoking packs per day: 1 Smoking cigarettes per day: 20.0 Years smoked: 35 Smoking pack-years: 35.00 Smoking status: Current some day smoker Tobacco type: cigarettes Alcohol intake: current Drinks per week: 4 Alcohol use details: 3 to 4 beers per week. Substance use: unknown Substance use type: does not use Additional living arrangements comments: The patient lives in [place] with his brother. They are both currently unemployed and are living on food stamps. Additional occupation/education comments: Currently unemployed. Gender identity (if verbalized by the patient): Male Spiritual care concerns: No Meds Home Medications and Allergies Home Medications Medication Instructions Recorded Confirmed Type albuterol sulfate 2 puff INHALATION QID PRN #8.5 g 07/21/21 08/26/21 Rx ferrous sulfate 324 mg PO BID 07/27/21 08/26/21 History levothyroxine 25 mcg PO DAILY 07/27/21 08/26/21 History atorvastatin 20 mg PO HS #30 tablet 07/30/21 08/26/21 Rx potassium chloride [K-Tab] 20 meq PO DAILY@0800 #60 tablet 07/30/21 08/26/21 Rx albuterol sulfate 2.5 mg INHALATION Q6HRT #30 ea 08/17/21 08/26/21 Rx clopidogrel 75 mg PO QAM #30 tablet 08/17/21 08/26/21 Rx folic acid 1 mg PO DAILY #30 tablet 08/17/21 08/26/21 Rx furosemide [Lasix] 20 mg PO DAILY PRN #10 tablet 08/17/21 08/26/21 Rx gabapentin 100 mg PO TID #90 cap 08/17/21 08/26/21 Rx lanolin wioxhdj-fa-a.pet-ceres 1 applic TOPICAL BID #113 g 08/17/21 08/26/21 Rx [Minerin Creme] thiamine HCl (vitamin B1) [Vitamin 100 mg PO QAM #30 tablet 08/17/21 08/26/21 Rx B-1] doxycycline
[2021-08-26 08:42] LABS: Hematocrit 29.7 % (42.0-52.0); Hemoglobin 9.6 g/dL (14.0-18.0)
[2021-08-26 08:54] LABS: Lactate Dehydrogenase 552 U/L (313-618)
[2021-08-26 09:19] LABS: Transferrin < 80 mg/dL (206-381)
[2021-08-26 09:23] LABS: Iron 61 ug/dL (49-181)
[2021-08-26 09:32] LABS: Percent Iron Saturation 58 % (20-50)
[2021-08-26] MEDS: GABAPENTIN 100 MG CAPSULE PO ×3 (09:52→18:14)
[2021-08-26] MEDS: FUROSEMIDE 20 MG TABLET PO (09:52)
[2021-08-26] MEDS: THIAMINE HCL 100 MG TABLET PO (09:52)
[2021-08-26] MEDS: PANTOPRAZOLE 40 MG TABLET PO (09:52)
[2021-08-26] MEDS: FOLIC ACID 1 MG TABLET PO (09:52)
[2021-08-26] MEDS: FERROUS SULFATE 324 MG TABLET PO ×2 (09:52→18:13)
[2021-08-26] MEDS: DOCUSATE SODIUM 100 MG CAPSULE PO ×2 (09:52→18:14)
[2021-08-26] MEDS: MEGESTROL ACETATE (*CHEMO) ORAL SUSP 40 MG/ML SYR 400 MG PO ×2 (09:52→18:13)
[2021-08-26] MEDS: CLOPIDOGREL BISULFATE 75 MG TABLET PO (09:52)
[2021-08-26 10:12] LABS: Folic Acid > 20.0 ng/mL (2.76->20)
[2021-08-26] MEDS: DOXYCYCLINE HYCLATE 100 MG TABLET PO ×2 (13:23→18:14)
[2021-08-26] MEDS: EUCERIN CREAM 120 GM JAR 1 APPLIC TOPICAL ×2 (13:23→18:14)
--- NOTE | 2021-08-26 16:51 | PCRCNOTE ---
Window of time for administration has passed. See next scheduled administration.
[2021-08-26] MEDS: ALBUTEROL SULFATE (*SP) INHALER 2 PUFF INHALATION (17:00)
[2021-08-26] MEDS: ATORVASTATIN 20 MG TABLET PO (21:51)
[2021-08-26] MEDS: HYDROcodone/acetaminophen (*CRX) 5-325 MG TABLET 1 TAB PO (22:52)
[2021-08-27] VITALS (9 sets, daily range): BP systolic 134–151; BP diastolic 87–97; PULSE 57–70; RESP 12–18; TEMP 36.2–37.9; O2SAT 95–98
[2021-08-27] MEDS: DOXYCYCLINE HYCLATE 100 MG TABLET PO ×2 (06:11→18:05)
[2021-08-27] MEDS: HYDROcodone/acetaminophen (*CRX) 5-325 MG TABLET 1 TAB PO (06:12)
[2021-08-27] MEDS: LEVOTHYROXINE SODIUM 25 MCG TABLET PO (06:12)
[2021-08-27 06:44] LABS: Basophils Absolute Auto 0.1 K/mm3 (0.0-0.1); Basophils Percent Auto 1.1 % (0.2-1.2); Eosinophils Percent Auto 0.5 % (0-4.4); Hemoglobin 9.7 g/dL (14.0-18.0); Immature Granulocyte Absolute 0.42 K/mm3 (0.00-0.031); Immature Granulocyte Percent A 6.7 % (0-0.5); Lymphocytes Absolute Auto 1.76 K/mm3 (0.9-3.2); Lymphocytes Percent Auto 28.2 % (18.3-44.2); Mean Corpuscular HGB Conc 33.4 g/dl (32-36); Mean Corpuscular Hemoglobin 30.6 pg (26-34); Mean Corpuscular Volume 91.5 fl (80-100); Mean Platelet Volume 9.7 fl (7.4-10.4); Monocytes Absolute Auto 0.5 K/mm3 (0.1-0.6); Monocytes Percent Auto 8.3 % (2.6-8.5); Neutrophils Absolute Auto 3.5 K/mm3 (1.3-6.7); Neutrophils Percent Auto 55.2 % (45.5-73.1); Platelet Count Result 332 k/mm3 (150-375); Red Blood Count 3.17 M/mm3 (4.6-6.20); Red Cell Distribution Width 15.9 % (11.5-14.5); White Blood Count 6.3 K/mm3 (4.5-10.0)
[2021-08-27 06:56] LABS: Anion Gap 2 mmol/L (8-16); Blood Urea Nitrogen 14 mg/dL (9-20); Calcium 7.1 mg/dL (8.4-10.2); Carbon Dioxide 27 mmol/L (22-30); Chloride 103 mmol/L (98-107); Estimated CRCL calculation 120 ml/min; Estimated Glomerular Filt Rate > 60; Glucose 80 mg/dL (65-110); Potassium 3.9 mmol/L (3.4-5.0); Sodium 132 mmol/L (137-145)
[2021-08-27] MEDS: FOLIC ACID 1 MG TABLET PO (07:57)
[2021-08-27] MEDS: PANTOPRAZOLE 40 MG TABLET PO (07:57)
[2021-08-27] MEDS: CLOPIDOGREL BISULFATE 75 MG TABLET PO (08:00)
[2021-08-27] MEDS: POTASSIUM CHLORIDE 20 MEQ TABLET.ER PO (08:00)
[2021-08-27] MEDS: THIAMINE HCL 100 MG TABLET PO (08:00)
[2021-08-27] MEDS: GABAPENTIN 100 MG CAPSULE PO ×3 (08:00→17:32)
[2021-08-27] MEDS: FERROUS SULFATE 324 MG TABLET PO ×2 (08:00→17:32)
[2021-08-27] MEDS: DOCUSATE SODIUM 100 MG CAPSULE PO ×2 (08:00→17:32)
[2021-08-27] MEDS: EUCERIN CREAM 120 GM JAR 1 APPLIC TOPICAL ×2 (08:01→18:05)
[2021-08-27] MEDS: MEGESTROL ACETATE (*CHEMO) ORAL SUSP 40 MG/ML SYR 400 MG PO ×2 (08:01→17:32)
[2021-08-27 08:04] LABS: Platelet Estimate Adequate (Adequate)
[2021-08-27 08:05] LABS: Anisocytosis 1+ (NORMAL); Hypochromasia 2+ (NORMAL)
[2021-08-27 08:06] LABS: Helmet Cells 1+ (NORMAL); Ovalocytes 1+ (NORMAL)
[2021-08-27] MEDS: FUROSEMIDE INJ 40 MG/4 ML VIAL IV PUSH (12:01)
--- NOTE | 2021-08-27 14:44 | PCPTNOTE ---
Attempted PT eval-pt adamantly refused to be seen. Try tomorrow.
--- NOTE | 2021-08-27 14:59 | PM.IMPN ---
Progress Note: A&P Assessment and Plan (1) Anemia: Code(s): D64.9 - Anemia, unspecified Status: Acute Assessment and Plan: He has received 2 units of PRBC already in the emergency department. Follow-up H&H will be done at around 9:00 a.m. today. Continue to monitor H&H. Transfuse PRBC if indicated. Check guaiac stool, anemia workup. He denied have any hematochezia or melena. Hematology will be consulted for their inputs considering his requirement of blood transfusion frequently. His last blood transfusion was on 08/11. (2) Stroke: Code(s): I63.9 - Cerebral infarction, unspecified Status: Acute Assessment and Plan: Currently on Plavix and Lipitor. I will continue both. (3) DVT prophylaxis: Code(s): Z29.9 - Encounter for prophylactic measures, unspecified Status: Acute Assessment and Plan: SCD boot considering anemia. (4) Protein-calorie malnutrition, severe: Code(s): E43 - Unspecified severe protein-calorie malnutrition Status: Acute Assessment and Plan: Nutrition consult. Continue to monitor. (5) Pneumonia: Code(s): J18.9 - Pneumonia, unspecified organism Status: Acute Assessment and Plan: He was being treated for pneumonia with doxycycline as an outpatient. I will continue it. He had significant cough with phlegm until few days ago which has now improved. Repeat chest x-ray done showed bilateral airspace disease with some degree of right-sided pleural effusion. He was given 1 dose of Lasix today. I will empirically give him dexamethasone today until we get a definite answer from a [facility]. If his COVID come back negative then dexamethasone can be stopped. Additional Plan He had a negative COVID-19 test here in the hospital on 08/10. Nursing staff has reported a positive COVID-19 from the rehab, [facility] but patient himself was not aware of it. His facility has been called and try to get the information but has not received anything. Nursing staff here will call out his rehab facility again to get more definite information about his questionable positive COVID-19 test. I will send a COVID-19 test here. He will remain under precaution until we clarify his COVID-19 testing status. DVT prophylaxis with SCD boot GI prophylaxis not indicated Full code Subjective Date/time seen: 08/27/21 14:59 He is still complaining of shortness of breath and does have occasional cough as well but unable to bring up any phlegm. He had a negative COVID-19 test here in the hospital on 08/10. Nursing staff has reported a positive COVID-19 from the rehab, [facility] but patient himself was not aware of it. His facility has been called and try to get the information but has not received anything. Nursing staff here will call out his rehab facility again to get more definite information about his questionable positive COVID-19 test. He received 2 unit of PRBC with improvement in his hemoglobin to 9.7. Hematology consult is pending. Chest x-ray showed bilateral airspace disease with some degree of right-sided pleural effusion. He was given Lasix today. Review of Systems Review of Systems: All systems reviewed & are unremarkable except as noted in HPI and below Exam Narrative: General awake and alert not in acute distress Eyes PERRLA pale conjunctiva HEENT no discharge Neck supple CVS S1-S2 no murmur Respiratory no wheezes or crepitation GI soft nontender nondistended Chest wall no tenderness or deformity [employer] alert oriented x3 and left-sided residual weakness Psychiatric cooperative appropriate mood and affect Extremities no edema Objective Data Vital Signs Vital Signs: Vital Signs - 24 hr 08/26/21 16:00 08/26/21 17:20 08/26/21 20:00 Temperature 36.6 C 37.0 C Pulse Rate 60 67 62 Respiratory Rate 14 18 Blood Pressure 164/86 H 133/89 Pulse Oximetry 98
--- NOTE | 2021-08-27 16:08 | PC.NURSE ---
Dr Bravo was asking about covid status. unable to find +covid test here. last test done here was negative on 08/10. patient recently discharge to [facility]. call placed to [facility], and talked with nurse there who states i am an agency nurse and have no idea where to find that information. it is not in the current chart notified. call placed again at 3 pm hoping to be able to reach another nurse that may not be agency. Dr. Bravo ordered covid swab to be done here.
[2021-08-27] MEDS: DEXAMETHASONE SOD PHOS INJ 4 MG/ML VIAL 6 MG IV PUSH (17:32)
[2021-08-27] MEDS: ATORVASTATIN 20 MG TABLET PO (20:51)
[2021-08-28] VITALS (7 sets, daily range): BP systolic 117–150; BP diastolic 85–109; PULSE 73–89; RESP 17–18; TEMP 36.6–37.1; O2SAT 92–100; BMI 18.2
[2021-08-28 06:45] LABS: Basophils Absolute Auto 0.1 K/mm3 (0.0-0.1); Basophils Percent Auto 0.8 % (0.2-1.2); Hematocrit 32.8 % (42.0-52.0); Hemoglobin 10.9 g/dL (14.0-18.0); Immature Granulocyte Absolute 0.43 K/mm3 (0.00-0.031); Immature Granulocyte Percent A 6.8 % (0-0.5); Lymphocytes Absolute Auto 1.39 K/mm3 (0.9-3.2); Lymphocytes Percent Auto 21.9 % (18.3-44.2); Mean Corpuscular HGB Conc 33.2 g/dl (32-36); Mean Corpuscular Hemoglobin 30.4 pg (26-34); Mean Corpuscular Volume 91.4 fl (80-100); Mean Platelet Volume 9.3 fl (7.4-10.4); Monocytes Absolute Auto 0.5 K/mm3 (0.1-0.6); Monocytes Percent Auto 7.4 % (2.6-8.5); Neutrophils Percent Auto 63.1 % (45.5-73.1); Platelet Count Result 399 k/mm3 (150-375); Red Blood Count 3.59 M/mm3 (4.6-6.20); Red Cell Distribution Width 16.2 % (11.5-14.5); White Blood Count 6.4 K/mm3 (4.5-10.0)
[2021-08-28 07:00] LABS: D Dimer 2.57 ug/mL (<0.48)
[2021-08-28 07:01] LABS: Anion Gap 4 mmol/L (8-16); Blood Urea Nitrogen 16 mg/dL (9-20); CRP 2.3 mg/dL (<1.0); Calcium 7.5 mg/dL (8.4-10.2); Carbon Dioxide 27 mmol/L (22-30); Chloride 101 mmol/L (98-107); Estimated CRCL calculation 102 ml/min; Estimated Glomerular Filt Rate > 60; Glucose 93 mg/dL (65-110); Sodium 132 mmol/L (137-145)
[2021-08-28] MEDS: HYDROcodone/acetaminophen (*CRX) 5-325 MG TABLET 1 TAB PO ×2 (07:17→17:51)
[2021-08-28] MEDS: LEVOTHYROXINE SODIUM 25 MCG TABLET PO (07:18)
[2021-08-28 07:23] LABS: Hypochromasia 1+ (NORMAL); Platelet Estimate Adequate (Adequate)
[2021-08-28 07:24] LABS: Anisocytosis 1+ (NORMAL); Helmet Cells 1+ (NORMAL); Ovalocytes 1+ (NORMAL); Target Cells 1+ (NORMAL)
[2021-08-28] MEDS: PANTOPRAZOLE 40 MG TABLET PO (09:25)
[2021-08-28] MEDS: THIAMINE HCL 100 MG TABLET PO (09:25)
[2021-08-28] MEDS: FERROUS SULFATE 324 MG TABLET PO ×2 (09:25→17:53)
[2021-08-28] MEDS: FUROSEMIDE 20 MG TABLET PO (09:25)
[2021-08-28] MEDS: GABAPENTIN 100 MG CAPSULE PO ×2 (09:26→13:33)
[2021-08-28] MEDS: CLOPIDOGREL BISULFATE 75 MG TABLET PO (09:26)
[2021-08-28] MEDS: MEGESTROL ACETATE (*CHEMO) ORAL SUSP 40 MG/ML SYR 400 MG PO ×2 (09:26→17:53)
[2021-08-28] MEDS: EUCERIN CREAM 120 GM JAR 1 APPLIC TOPICAL ×2 (09:27→17:53)
[2021-08-28] MEDS: FOLIC ACID 1 MG TABLET PO (09:27)
[2021-08-28] MEDS: POTASSIUM CHLORIDE 20 MEQ TABLET.ER PO (09:27)
[2021-08-28] MEDS: DEXAMETHASONE SOD PHOS INJ 4 MG/ML VIAL 6 MG IV PUSH (10:38)
--- NOTE | 2021-08-28 12:41 | PCPTNOTE ---
On 08/28/21, the student, Darrell Weeks, provided care and completed [facility] documentation on this patient. I have reviewed the student's documentation and agree with the findings.
--- NOTE | 2021-08-28 13:35 | PM.IMPN ---
Progress Note: A&P Assessment and Plan (1) Anemia: Code(s): D64.9 - Anemia, unspecified Status: Acute Assessment and Plan: Hgb was 9.4 in the ED on 08/20 but was low in the [facility] so avis sent back to the ED for evaluation where yunier found his Hgb to be 6.9. He received 2 units of PRBC in the emergency department. Follow-up Hgb up to 10 range. Stool guaiac negative in the ED. Hematology was consulted for their inputs considering his requirement of blood transfusion frequently. His last blood transfusion was on 08/11. Contineu to monitor. Continue PT/OT. Okay to remove sutures. (2) Pneumonia: Code(s): J18.9 - Pneumonia, unspecified organism Status: Acute Assessment and Plan: He was being treated for pneumonia with doxycycline as an outpatient. He had significant cough with phlegm until a few days ago which has now improved. We continued Doxy and he completed a course on 08/27/21. CXR done this admission showing bilateral airspace disease with some degree of right-sided pleural effusion and Lasix x1 given. DDimer positive. He is high risk for VTE so will check doppler and CTA. (3) Stroke: Code(s): I63.9 - Cerebral infarction, unspecified Status: Acute Assessment and Plan: Patient has a hx of CVA. Currently on Plavix and Lipitor which were continued. (4) Protein-calorie malnutrition, severe: Code(s): E43 - Unspecified severe protein-calorie malnutrition Status: Acute Assessment and Plan: Malnutrition due to hepatic disease and from poor oral intake. Continue Megace. Continue supplements. Nutrition consult. Continue to monitor. (5) DVT prophylaxis: Code(s): Z29.9 - Encounter for prophylactic measures, unspecified Status: Acute Assessment and Plan: SCDs Subjective Date/time seen: 08/28/21 13:35 Interval history: 56yo male with history of HTN, history of CVA with significant left-sided residual weakness, chronic anemia and history of alcohol abuse who was sent over from [facility] with low hemoglobin. SANDRA in the ED showed heme-negative stool. Assuming care. Chart reviewed. Patient states he was admitted here because of confusion is now oriented. He does state he is mildly confused mostly at night at times. Is also having shortness of breath and chest pain on admission but these symptoms have improved. Eating well. No nausea or vomiting. Exam Narrative: Tm 100.2 98.4 140/85 78 18 97% ra Gen - NARD Chest - distant BS with diffuse expiratory wheezes, nml RR CV - RRR S1/S2 Abd - Soft, scaphoid, NT, Positive BS Ext - trace-1+ pedal edema Neuro - Alert and oriented x4 (at the hospital but not the name of the hospital). Psych - Nml mood but odd affect Skin - multiple areas of ecchymosis and skin tear bilateral UE. brusing noted left forehead. sutures in place above the left eyebrow. Objective Data Vital Signs Vital Signs: Vital Signs - 24 hr 08/27/21 15:53 08/27/21 16:00 08/27/21 20:00 Temperature 100.2 F H 97.2 F L Pulse Rate 65 60 70 Respiratory Rate 14 18 Blood Pressure 146/88 H 140/97 H Pulse Oximetry 96 98 08/28/21 00:00 08/28/21 04:00 08/28/21 08:00 Temperature 97.8 F 98.3 F 97.8 F Pulse Rate 87 74 89 Respiratory Rate 18 18 18 Blood Pressure 139/109 H 121/91 H 117/85 Pulse Oximetry 100 96 92 08/28/21 12:00 Temperature 98.4 F Pulse Rate 78 Respiratory Rate 18 Blood Pressure 140/85 Pulse Oximetry 97 Intake/Output Intake/Output: Intake & Output 08/25/21 08/26/21 08/27/21 08/28/21 23:59 23:59 23:59 23:59 Intake Total 1969 1560 840 Balance 1969 1560 840 Meds/Results Medications: Active Medications Generic Name Dose Route Start Last Admin Trade Name Freq PRN Reason Stop Dose Admin Acetaminophen 650 mg 08/26/21 08:19 Acetaminophen 325 Mg Tablet PO Q6HR PRN Mild Pain (1-3) or Fever Hydrocodone Bitart/Acetaminophen 1 tab 08/26/21 0
[2021-08-28 16:47] LABS: SARS-CoV-2 RNA PCR Positive
--- NOTE | 2021-08-28 17:41 | PDONCCN ---
HPI - Date of Consult Date/Time: 08/28/21 17:41 Requesting Physician: Ledy Velasquez MD Primary Care Provider: Jeanie OrtizMD - Consult Narrative Reason for consult: Normocytic anemia Narrative: Simon Barraza is a 56 year old male with history of hypertension, hyperlipidemia, stroke with left-sided weakness and alcohol abuse came into the hospital with shortness of breath as well as tiredness and fatigue. He was having generalized weakness. He denies any melena hematochezia but does have generalized bruising and pain in the back in the lower extremities. Patient is a long term resident and found to have a low hemoglobin. He received 2 units of packed red blood cell on August 26 for hemoglobin of 6.9. According the patient has been anemic for long time. Abdominal ultrasound from July 16 showed hepatic steatosis. Review of Systems - Review of Systems All systems reviewed & are unremarkable except as noted in HPI and bel - Neurologic Denies weakness PMFSH Medical History: Medical History (Last Updated 08/26/21 @ 02:50 by Je Dee MD) Adult failure to thrive CHF (congestive heart failure) Hypertension Stroke Tobacco dependence Surgical History: Surgical History (Last Reviewed 08/20/21 @ 13:44 by Jackson Bhatt MD) History of excision of testicular mass With benign histology. Family History: Family History (Last Reviewed 08/20/21 @ 13:44 by Jackson Bhatt MD) Father Chronic obstructive pulmonary disease Congestive heart failure Hypertension Mother Abdominal aortic aneurysm rupture Daughter Type 1 diabetes mellitus - Social History Social History: Social History (Last Reviewed 08/20/21 @ 13:44 by Jackson Bhatt MD) Gender Identity: Gender identity (if verbalized by the patient): Male Alcohol Use: Alcohol intake: current Drinks per week: 4 Alcohol use details: 3 to 4 beers per week. Substance Use: Substance use: unknown Substance use type: does not use Others: Spiritual care concerns: No Smoking Status: Smoking status: Current some day smoker Tobacco type: cigarettes Smoking Pack-years: Smoking packs per day: 1 Smoking cigarettes per day: 0.5 Years smoked: 35 Smoking pack-years: 0.88 Meds Home Medications Medication Instructions Recorded Confirmed Type albuterol sulfate 2 puff INHALATION QID PRN #8.5 g 07/21/21 08/26/21 Rx ferrous sulfate 324 mg PO BID 07/27/21 08/26/21 History levothyroxine 25 mcg PO DAILY 07/27/21 08/26/21 History atorvastatin 20 mg PO HS #30 tablet 07/30/21 08/26/21 Rx potassium chloride [K-Tab] 20 meq PO DAILY@0800 #60 tablet 07/30/21 08/26/21 Rx albuterol sulfate 2.5 mg INHALATION Q6HRT #30 ea 08/17/21 08/26/21 Rx clopidogrel 75 mg PO QAM #30 tablet 08/17/21 08/26/21 Rx folic acid 1 mg PO DAILY #30 tablet 08/17/21 08/26/21 Rx furosemide [Lasix] 20 mg PO DAILY PRN #10 tablet 08/17/21 08/26/21 Rx gabapentin 100 mg PO TID #90 cap 08/17/21 08/26/21 Rx lanolin ywidvqi-jm-u.pet-ceres 1 applic TOPICAL BID #113 g 08/17/21 08/26/21 Rx [Minerin Creme] thiamine HCl (vitamin B1) [Vitamin 100 mg PO QAM #30 tablet 08/17/21 08/26/21 Rx B-1] doxycycline hyclate 100 mg PO BID 5 Days #10 cap 08/20/21 08/26/21 Rx megestrol 400 mg PO BID 08/26/21 08/26/21 History pantoprazole [Protonix] 40 mg PO DAILY 08/26/21 08/26/21 History Allergies Allergy/AdvReac Type Severity Reaction Status Date / Time amoxicillin Allergy Rash Verified 08/20/21 12:38 Results - Labs CBC & Chem 7: 08/28/21 06:21 08/28/21 06:21 Labs: Short CBC 08/28/21 Range/Units 06:21 WBC 6.4 (4.5-10.0) K/mm3 Hgb 10.9 L (14.0-18.0) g/dL Hct 32.8 L (42.0-52.0) % Plt Count 399 H (150-375) k/mm3 BMP 08/28/21 06:21 Sodium 132 L Potassium 4.0 Chloride 101 Carbon Dioxide 27 BUN 16 Creatinine 0.60 L Glucose 93
[2021-08-28] MEDS: DOCUSATE SODIUM 100 MG CAPSULE PO (17:53)
[2021-08-28] MEDS: ATORVASTATIN 20 MG TABLET PO (22:48)
[2021-08-29] VITALS (7 sets, daily range): BP systolic 126–142; BP diastolic 81–98; PULSE 66–89; RESP 16–20; TEMP 36.4–36.8; O2SAT 94–100
[2021-08-29] MEDS: LEVOTHYROXINE SODIUM 25 MCG TABLET PO (06:08)
[2021-08-29 06:49] LABS: Hematocrit 29.4 % (42.0-52.0); Hemoglobin 10.1 g/dL (14.0-18.0); Mean Corpuscular HGB Conc 34.4 g/dl (32-36); Mean Corpuscular Hemoglobin 31.7 pg (26-34); Mean Corpuscular Volume 92.2 fl (80-100); Mean Platelet Volume 9.2 fl (7.4-10.4); Platelet Count Result 395 k/mm3 (150-375); Red Blood Count 3.19 M/mm3 (4.6-6.20); White Blood Count 8.1 K/mm3 (4.5-10.0)
[2021-08-29 07:00] LABS: Alanine Aminotransferase 15 U/L (4-50); Albumin Level 2.3 g/dL (3.5-5.1); Alkaline Phosphatase 72 U/L (38-126); Anion Gap 2 mmol/L (8-16); Aspartate Amino Transferase 33 U/L (17-59); Bilirubin,Total 0.3 mg/dL (0.2-1.3); Blood Urea Nitrogen 17 mg/dL (9-20); Calcium 7.9 mg/dL (8.4-10.2); Carbon Dioxide 30 mmol/L (22-30); Chloride 101 mmol/L (98-107); Estimated CRCL calculation 102 ml/min; Estimated Glomerular Filt Rate > 60; Glucose 86 mg/dL (65-110); Magnesium 1.5 mg/dL (1.6-2.3); Phosphorus 2.9 mg/dL (2.5-4.5); Potassium 4.1 mmol/L (3.4-5.0); Sodium 133 mmol/L (137-145)
[2021-08-29] MEDS: HYDROcodone/acetaminophen (*CRX) 5-325 MG TABLET 1 TAB PO ×2 (08:27→16:30)
[2021-08-29] MEDS: FUROSEMIDE 20 MG TABLET PO (08:28)
[2021-08-29] MEDS: PANTOPRAZOLE 40 MG TABLET PO (08:28)
[2021-08-29] MEDS: FOLIC ACID 1 MG TABLET PO (08:28)
[2021-08-29] MEDS: FERROUS SULFATE 324 MG TABLET PO ×2 (08:28→16:31)
[2021-08-29] MEDS: MEGESTROL ACETATE (*CHEMO) ORAL SUSP 40 MG/ML SYR 400 MG PO ×2 (08:28→16:35)
[2021-08-29] MEDS: GABAPENTIN 100 MG CAPSULE PO ×3 (08:28→16:32)
[2021-08-29] MEDS: POTASSIUM CHLORIDE 20 MEQ TABLET.ER PO (08:29)
[2021-08-29] MEDS: THIAMINE HCL 100 MG TABLET PO (08:29)
[2021-08-29] MEDS: EUCERIN CREAM 120 GM JAR 1 APPLIC TOPICAL ×3 (08:29→16:34)
[2021-08-29] MEDS: DOCUSATE SODIUM 100 MG CAPSULE PO ×2 (08:29→16:31)
[2021-08-29] MEDS: CLOPIDOGREL BISULFATE 75 MG TABLET PO (08:29)
--- NOTE | 2021-08-29 12:29 | PM.IMPN ---
Progress Note: A&P Assessment and Plan (1) COVID: Code(s): U07.1 - COVID-19 Status: Acute Assessment and Plan: He had a negative COVID-19 test here in the hospital on 08/10. Nursing staff has reported a positive COVID-19 from the rehab, [facility] but patient himself was not aware of it. COVID-19 test sent and has returned positive. Patient essentially asymptomatic. Stop Dexamethasone since this can cause harm since not requiring supplemental O2. (2) Anemia: Code(s): D64.9 - Anemia, unspecified Status: Acute Assessment and Plan: Hgb was 9.4 in the ED on 08/20 but was low in the [facility] so avis sent back to the ED for evaluation where yunier found his Hgb to be 6.9. He received 2 units of PRBC in the emergency department. Follow-up Hgb up to 10 range and stable. Stool guaiac negative in the ED. Hematology was consulted for their inputs considering his requirement of blood transfusion frequently. His last blood transfusion was on 08/11. Contineu to monitor. Continue PT/OT. Okay to remove sutures. (3) Pneumonia: Code(s): J18.9 - Pneumonia, unspecified organism Status: Acute Assessment and Plan: He was being treated for pneumonia with doxycycline as an outpatient. He had significant cough with phlegm until a few days ago which has now improved. We continued Doxy and he completed a course on 08/27/21. CXR done this admission showing bilateral airspace disease with some degree of right-sided pleural effusion and Lasix x1 given. DDimer positive but LE venous doppler negative for DVT. CTA chest ordered shownig no PE but moderate-sized bilateral pleural effusion and evidence of COVID vs PNA. Also with ascites. Given the pedla edema, will start IV Lasix. (4) Stroke: Code(s): I63.9 - Cerebral infarction, unspecified Status: Acute Assessment and Plan: Patient has a hx of CVA. Currently on Plavix and Lipitor which have been continued. (5) Protein-calorie malnutrition, severe: Code(s): E43 - Unspecified severe protein-calorie malnutrition Status: Acute Assessment and Plan: Malnutrition due to hepatic disease and from poor oral intake. Continue Megace. Continue supplements. Continue to monitor. (6) DVT prophylaxis: Code(s): Z29.9 - Encounter for prophylactic measures, unspecified Status: Acute Assessment and Plan: SCDs Subjective Date/time seen: 08/29/21 12:29 Interval history: 56yo male with history of HTN, history of CVA with significant left-sided residual weakness, chronic anemia and history of alcohol abuse who [facility] with [facility] hemoglobin. SANDRA in the ED showed heme-negative stool. Patient feels well. No nausea or vomiting. Eating normally. Denies chest pain shortness of breath. No other complaints. Exam Narrative: AF 97.7 140/87 66 16 100% ra Gen - chronically ill appearing male in NARD Chest - end expiratory wheezes anteriorly, nml RR CV - RRR S1/S2 Abd - Soft, scaphoid, NT, Positive BS Ext - trace-1+ pedal edema Psych - Nml mood but odd affect Skin - multiple areas of ecchymosis and skin tear bilateral UE. bruising noted left forehead with sutures in place above the left eyebrow. Objective Data Vital Signs Vital Signs: Vital Signs - 24 hr 08/28/21 16:00 08/28/21 20:00 08/28/21 23:52 Temperature 98.7 F 98.8 F 98.2 F Pulse Rate 83 73 73 Respiratory Rate 18 18 17 Blood Pressure 128/85 143/94 H 150/90 H Pulse Oximetry 99 97 98 08/29/21 02:34 08/29/21 03:36 08/29/21 08:00 Temperature 98.3 F 97.7 F Pulse Rate 73 73 66 Respiratory Rate 17 18 16 Blood Pressure 126/81 140/87 Pulse Oximetry 98 96 100 Intake/Output Intake/Output: Intake & Output 08/26/21 08/27/21 08/28/21 08/29/21 23:59 23:59 23:59 23:59 Intake Total 19690 1870 790 Output Total 300 Balance 1969 1559 1869 490 Meds/Results Medications: Active Medications
[2021-08-29] MEDS: CYANOCOBALAMIN INJ 1,000 MCG/ML VIAL 1000 MCG IM (12:50)
[2021-08-29] MEDS: MAGNESIUM SULF 2 GM/WATER 50ML 2 GM/50 ML BAG IVPB (13:01)
[2021-08-29] MEDS: FUROSEMIDE INJ 40 MG/4 ML VIAL IV PUSH ×2 (14:07→22:00)
[2021-08-29] MEDS: ATORVASTATIN 20 MG TABLET PO (22:00)
[2021-08-30 03:39] VITALS: BP 128/93; PULSE 70; RESP 18; TEMP 36.6; O2SAT 95
[2021-08-30 05:14] LABS: Albumin 1.6 g/dL (3.8-4.8); Alpha 1 Globulin 0.4 g/dL (0.2-0.3); Alpha 2 Globulin 0.5 g/dL (0.5-0.9); Beta 1 Globulin 0.2 g/dL (0.4-0.6); Gamma Globulin 1.2 g/dL (0.8-1.7); Protein, Total 4.3 g/dL (6.1-8.1)
[2021-08-30] MEDS: LEVOTHYROXINE SODIUM 25 MCG TABLET PO (06:32)
[2021-08-30 06:39] VITALS: BP 123/92; PULSE 85; RESP 18; TEMP 37; O2SAT 95
[2021-08-30 08:00] VITALS: BP 123/94; PULSE 77; RESP 18; TEMP 36.8; O2SAT 100
[2021-08-30] MEDS: DOCUSATE SODIUM 100 MG CAPSULE PO ×2 (08:49→17:24)
[2021-08-30] MEDS: CLOPIDOGREL BISULFATE 75 MG TABLET PO (08:49)
[2021-08-30] MEDS: POTASSIUM CHLORIDE 20 MEQ TABLET.ER PO (08:49)
[2021-08-30] MEDS: GABAPENTIN 100 MG CAPSULE PO ×3 (08:49→17:24)
[2021-08-30] MEDS: PANTOPRAZOLE 40 MG TABLET PO (08:49)
[2021-08-30] MEDS: FERROUS SULFATE 324 MG TABLET PO ×2 (08:50→17:24)
[2021-08-30] MEDS: FOLIC ACID 1 MG TABLET PO (08:50)
[2021-08-30] MEDS: CYANOCOBALAMIN INJ 1,000 MCG/ML VIAL 1000 MCG IM (08:50)
[2021-08-30] MEDS: THIAMINE HCL 100 MG TABLET PO (08:50)
[2021-08-30] MEDS: EUCERIN CREAM 120 GM JAR 1 APPLIC TOPICAL ×2 (09:09→17:25)
[2021-08-30 09:20] LABS: Hematocrit 31.2 % (42.0-52.0); Hemoglobin 10.3 g/dL (14.0-18.0); Mean Corpuscular Hemoglobin 30.7 pg (26-34); Mean Corpuscular Volume 92.9 fl (80-100); Mean Platelet Volume 9.1 fl (7.4-10.4); Platelet Count Result 389 k/mm3 (150-375); Red Blood Count 3.36 M/mm3 (4.6-6.20); Red Cell Distribution Width 16.3 % (11.5-14.5)
[2021-08-30 09:29] LABS: Anion Gap 3 mmol/L (8-16); Blood Urea Nitrogen 16 mg/dL (9-20); Carbon Dioxide 32 mmol/L (22-30); Chloride 98 mmol/L (98-107); Estimated CRCL calculation 102 ml/min; Estimated Glomerular Filt Rate > 60; Glucose 77 mg/dL (65-110); Potassium 3.5 mmol/L (3.4-5.0); Sodium 133 mmol/L (137-145)
[2021-08-30 11:12] LABS: Haptoglobin 113 mg/dL (43-212)
--- NOTE | 2021-08-30 11:21 | PCPTNOTE ---
Patient refused treatment this session. Patient states I am sleeping! Therapy always shows up at the wrong times! Educated patient in the importance of participating in therapy to improve strength, mobility and endurance. Patient voices understanding but continue to refuse. Patient kept sheet pulled up over head. PT will continue to follow per plan of care.
[2021-08-30 12:00] VITALS: BP 115/86; PULSE 103; RESP 16; TEMP 36.6; O2SAT 100
--- NOTE | 2021-08-30 12:41 | PM.DS ---
DS: Admitting Diagnosis Discharge Date 08/30/21 Admitting Diagnosis Anemia DS: Discharge Diagnosis Discharge Diagnosis (1) Anemia: Code(s): D64.9 - Anemia, unspecified Status: Acute Assessment and Plan: Hgb was 9.4 in the ED on 08/20 but was low in the [facility] so avis sent back to the ED for evaluation where yunier found his Hgb to be 6.9. He received 2 units of PRBC in the emergency department. Hgb followed serially and remained stable in the 9-10 range. Stool guaiac negative in the ED. Hematology was consulted and appreciate their input. Continue iron. (2) Pneumonia: Code(s): J18.9 - Pneumonia, unspecified organism Status: Acute Assessment and Plan: Patient was being treated for pneumonia with doxycycline as an outpatient. He had significant cough with phlegm until a few days ago which has now improved. We continued doxycycline and he completed a course here. CXR done this admission showing bilateral airspace disease with some degree of right-sided pleural effusion and Lasix x1 given. DDimer was positive but LE venous doppler was negative for DVT and Chest CTA was negative for PE. The CT did show moderate sized pleural effusions, mild emphysema and mild airspace disease. Small volume of ascites also noted. He did test positive for COVID here but avis remained asymptomatic without oxygen requirement. He was started on scheduled Lasix with good UOP but I/O's were inaccurate. (3) COVID: Code(s): U07.1 - COVID-19 Status: Acute Assessment and Plan: He had a negative COVID-19 test here in the hospital on 08/10. Nursing staff has reported a positive COVID-19 from the rehab, [facility] but patient himself was not aware of it. COVID-19 test sent and has returned positive. Patient essentially asymptomatic. He was on Dexamethasone on admission but we stopped this since this can cause harm since not requiring supplemental O2. It is unclear when he tested positive or why he was tested but he has remained stable. Will need to monitored closely for hypoxia. (4) Stroke: Code(s): I63.9 - Cerebral infarction, unspecified Status: Acute Assessment and Plan: Patient has a hx of CVA. Currently on Plavix and Lipitor which we continued. (5) Protein-calorie malnutrition, severe: Code(s): E43 - Unspecified severe protein-calorie malnutrition Status: Acute Assessment and Plan: Malnutrition due to hepatic disease and from poor oral intake. Continue Megace. Continue supplements. Nutrition consult. Continue to monitor. Albumin dropped to 1.6 but improved to 2.3. He is eating better. Will continue supplements. DS: Summary Hospital Course Reason for hospitalization: 56yo male with history of HTN, history of CVA with significant left-sided residual weakness, chronic anemia and history of alcohol abuse who was [facility] with low hemoglobin. SANDRA in the ED showed heme-negative stool. Please see H&P for details. Hospital Course: Please see above for details hospital course. Status at Discharge Cognitive/behavioral status at discharge: Stable Time Spent with Patient Time attestation: Total time spent providing and/or coordinating discharge services: 35 minutes Time spent: Greater than 30 minutes Exam Narrative: AF 97.9 115/86 103 16 100% ra Gen - chronically ill appearing male in NARD lying semi-recumbent in bed Chest - decreased BS in the bases otherwise clear. nml RR CV - RRR S1/S2 Abd - Soft, scaphoid, NT, Positive BS Ext - trace-1+ pedal edema but inproved Psych - Nml mood but odd affect Skin - multiple areas of ecchymosis and skin tear bilateral UE and (to a less extent) in the LE. bruising noted left forehead with sutures in place above the left eyebrow. DS: Data Data Completed and Pending Labs on day of discharge: Labs from last 24 hours 08/30/21 08/30/21 08/30/21 11:52 08:20 08:2
[2021-08-30 12:54] LABS: IFOB Positive Control Positive; Immunochemical Fecal Occult Bl Positive (N)
[2021-08-30] MEDS: MEGESTROL ACETATE (*CHEMO) ORAL SUSP 40 MG/ML SYR 400 MG PO ×2 (13:32→17:24)
[2021-08-30] MEDS: FUROSEMIDE 40 MG TABLET PO (13:33)
[2021-08-30 16:00] VITALS: BP 130/84; PULSE 110; RESP 16; TEMP 36.2; O2SAT 100
[2021-08-31 14:31] LABS: Soluble Transferrin Receptor 0.65 mg/L (0.76-1.76)
[2021-09-04 02:23] LABS: Creatinine, Random Urine 37 mg/dL (20-320); Total Protein/Creatinine Ratio 351 mg/g creat (22-128)
== END 2021-08-30 18:55 | DRG 663 ==
LOC: ANHED 08-26 00:04 → ANH3MEDSUR 08-26 02:51
PROVIDERS: Emergency Medicine; Internal Medicine Critical Care Medicine; Admitting Provider Internal Medicine; Emergency Provider Emergency Medicine; PCP Family Medicine; Visit Provider Internal Medicine
DX: D64.9 Anemia, unspecified (principal); J18.9 Pneumonia, unspecified organism; U07.1 COVID-19; J90 Pleural effusion, not elsewhere classified; E43 Unspecified severe protein-calorie malnutrition; F10.10 Alcohol abuse, uncomplicated; I11.0 Hypertensive heart disease with heart failure; I50.9 Heart failure, unspecified; R62.7 Adult failure to thrive; F17.210 Nicotine dependence, cigarettes, uncomplicated; E78.5 Hyperlipidemia, unspecified; Z68.1 Body mass index [BMI] 19.9 or less, adult; Z79.02 Long term (current) use of antithrombotics/antiplatelets; I69.354 Hemiplegia and hemiparesis following cerebral infarction affecting left non-dominant side
CPT/HCPCS: 36415; 36430; 71045; 71275; 80048; 80053; 82274; 82570; 82607; 82728; 82746; 83010; 83540; 83550; 83615; 83735; 84100; 84155; 84156; 84165; 84166; 84238; 84466; 85014; 85018; 85025; 85027; 85046; 85380; 86140; 86850; 86900; 86901; 86920; 93970; 94640; 96374; 96375; 97110; 97161; 97165; 97530; 97535; 99285; A9270; C9803; G0378; G0379; J1100; J1940; J2270; J3420; J3475; J7050; P9016; Q9967; U0003; U0005

== ENCOUNTER 2021-09-12 08:52 | Inpatient (IN) | payer OTHER, SELFPAY ==
[2021-09-12] VITALS (63 sets, daily range): BP systolic 84–139; BP diastolic 59–90; PULSE 65–99; RESP 10–21; TEMP 36.6–36.8; O2SAT 93–100
--- NOTE | ~2021-09-12 | CT_ITS ---
EXAMINATION: CT chest abdomen pelvis w con DATE: 09/12/2021 10:56 INDICATION: Blood in stool. Chest and abdominal injury. TECHNIQUE: Computed tomography (CT) of the chest, abdomen, and pelvis was performed with 100 mL Omnip aque 350 intravenous contrast. Automated exposure control and iterative reconstruction technique were employed. The dose-length product was 605.33 mGy-cm. COMPARISON: Chest CT 08/29/2021, CT abdomen and pelvis 04/28/2021 FINDINGS: CHEST CT: There is mild emphysema. There is mild atelectasis bilaterally. There is a small left pleural effusio n. The heart size is normal. There are coronary artery calcifications. No pericardial effusion. There is mild thoracic spondylosis. There is mild chronic anterior wedging of T7 vertebral body. There is 12 degrees dextroscoliosis of thoracolumbar spine. ABDOMEN/PELVIS CT: The liver and spleen are normal. There are gallstones in the gallbladder, which is normal in size. Th e pancreas and adrenal glands are normal. There is cortical thinning of the kidneys. There is a 6 mm cyst in left kidney. There is diverticulosis of the colon without evidence of diverticulitis. There a re no dilated loops of bowel. There is a large volume of stool in the colon. The appendix is not visu alized. There are no pathologically enlarged lymph nodes. There is no free intraperitoneal fluid. The re is a left inguinal hernia containing fat. There is mild lumbar spondylosis. IMPRESSION: 1. Small left pleural effusion. 2. Mild emphysema. 3. Left inguinal hernia containing fat. Reviewed, dictated and finalized at location A.
--- NOTE | ~2021-09-12 | CT_ITS ---
EXAMINATION: CT brain wo con DATE: 09/12/2021 10:55 INDICATION: Anticoagulated patient oriented only to self and year with chronic prior strokes who pres ents post unwitnessed fall. TECHNIQUE: Computed tomography (CT) of the head was performed without intravenous contrast. Sagittal and coronal reconstructions were performed. The mA was adjusted according to patient size. Iterative reconstruction technique was employed. The dose-length product was 605.33 mGy-cm. COMPARISON: 08/21/2021 FINDINGS: No fracture. No acute intracranial hemorrhage, acute infarction or abnormal extra axial fluid collect ion. Region of encephalomalacia consistent with a now chronic left occipital lobe infarct. Additional very small old infarct at the right occipital lobe. Small old lacunar infarcts in the bilateral fron josé miguel lobe periventricular white matter and left basal ganglia. There is mild scattered white matter hy poattenuation consistent with chronic small vessel ischemic disease. Symmetric prominence of the sulc i and ventricles consistent with moderate diffuse cerebral volume loss which is disproportionate to a ge. No mass/mass effect. Bubbly mucus in the dependent aspect bilateral sphenoid and posterior most r ight ethmoid sinuses. The orbits and mastoid air cells are normal. IMPRESSION: 1. No fracture or acute intracranial process. 2. Stable appearance of multiple old infarcts as detailed above, the largest in the left occipital lo be. 3. Moderate diffuse volume loss which is disproportionate for age and mild scattered white matter hyp oattenuation consistent with chronic small vessel ischemic disease. Reviewed, dictated and finalized at location A. IMPRESSION: 1. No fracture or acute intracranial process. 2. Stable appearance of multiple old infarcts as detailed above, the largest in the left occipital lobe. 3. Moderate diffuse volume loss which is disproportionate for age and mild scat tered white matter hypoattenuation consistent with chronic small vessel ischemi c disease.
--- NOTE | ~2021-09-12 | CT_ITS ---
EXAMINATION: CT cervical spine wo con DATE: 09/12/2021 10:56 INDICATION: Unwitnessed fall in a patient related only to self and year. TECHNIQUE: Computed tomography (CT) of the cervical spine was performed without intravenous contrast. Automated exposure control and iterative reconstruction technique were employed. The dose-length pro duct was 605.33 mGy-cm. COMPARISON: None FINDINGS: Straightening of the normal cervical lordosis. No spondylolisthesis or facet subluxation. Vertebral b mali heights are normal. No fracture. Moderate disc height loss at C3-C4 C5-C6 and C6-C7. Mild disc he ight loss at C4-C5. There disc bulges resulting in mild central canal stenosis from C2-C3 through C6- C7. There is also multilevel bilateral mild to moderate facet and uncovertebral osteoarthritis which contributes to minimal to mild neural foraminal stenosis throughout the cervical spine. Indeterminate small lytic lesion at the right side of the C5 vertebral body. Atherosclerotic calcifications at the bilateral carotid bulbs. Cervical soft tissues are otherwise unremarkable. Mild biapical emphysema. IMPRESSION: 1. Likely positional straightening of the normal cervical lordosis with moderate spondylosis. No frac ture or other acute osseous abnormality. 2. Small indeterminate lytic lesion in the C5 vertebral body which could be either benign such as a h emangioma or malignant either metastatic or multiple myeloma. 3. Mild emphysema. Reviewed, dictated and finalized at location A. IMPRESSION: 1. Likely positional straightening of the normal cervical lordosis with moderat e spondylosis. No fracture or other acute osseous abnormality. 2. Small indeterminate lytic lesion in the C5 vertebral body which could be eit her benign such as a hemangioma or malignant either metastatic or multiple myel flor. 3. Mild emphysema.
[2021-09-12] MEDS: SODIUM CHLORIDE 0.9% IV 1,000 ML 999 ML IV CONT (09:17)
--- NOTE | 2021-09-12 09:37 | ECG_ITS ---
Measurements Intervals [place] Rate: 68 P: 43 AR: 118 QRS: -79 QRSD: 152 T: 53 QT: 430 QTc: 460 Interpretive Statements SINUS RHYTHM WITH SHORT AR INTERVAL RIGHT BUNDLE BRANCH BLOCK BASELINE ARTIFACT- II, III, AVF, V1, V4-V6 ABNORMAL ECG Electronically Signed On 09-12-2021 13:05:18 CDT by James Cox D.O.
[2021-09-12] MEDS: PANTOPRAZOLE SODIUM IV 40 MG VIAL 80 MG IV PUSH (10:02)
[2021-09-12 10:05] LABS: Basophils Absolute Auto 0.1 K/mm3 (0.0-0.1); Eosinophils Absolute Auto 0.2 K/mm3 (0-0.3); Eosinophils Percent Auto 1.5 % (0-4.4); Hematocrit 27.8 % (42.0-52.0); Hemoglobin 8.8 g/dL (14.0-18.0); Immature Granulocyte Absolute 0.47 K/mm3 (0.00-0.031); Immature Granulocyte Percent A 3.8 % (0-0.5); Lymphocytes Absolute Auto 2.74 K/mm3 (0.9-3.2); Mean Corpuscular HGB Conc 31.7 g/dl (32-36); Mean Corpuscular Hemoglobin 31.7 pg (26-34); Mean Platelet Volume 8.5 fl (7.4-10.4); Monocytes Absolute Auto 1.5 K/mm3 (0.1-0.6); Monocytes Percent Auto 12.1 % (2.6-8.5); Neutrophils Absolute Auto 7.4 K/mm3 (1.3-6.7); Neutrophils Percent Auto 59.6 % (45.5-73.1); Platelet Count Result 499 k/mm3 (150-375); Red Blood Count 2.78 M/mm3 (4.6-6.20); Red Cell Distribution Width 17.9 % (11.5-14.5); White Blood Count 12.5 K/mm3 (4.5-10.0)
[2021-09-12 10:20] LABS: Alanine Aminotransferase 17 U/L (4-50); Alkaline Phosphatase 129 U/L (38-126); Anion Gap 7 mmol/L (8-16); Aspartate Amino Transferase 34 U/L (17-59); Bilirubin,Total 0.3 mg/dL (0.2-1.3); Blood Urea Nitrogen 33 mg/dL (9-20); CRP < 0.5 mg/dL (<1.0); Calcium 8.7 mg/dL (8.4-10.2); Carbon Dioxide 25 mmol/L (22-30); Chloride 103 mmol/L (98-107); Estimated CRCL calculation 79 ml/min; Estimated Glomerular Filt Rate > 60; Glucose 78 mg/dL (65-110); Lipase 150 U/L (23-300); Potassium 3.8 mmol/L (3.4-5.0); Sodium 135 mmol/L (137-145)
[2021-09-12 10:30] LABS: Lactic Acid Reflex 1.2 mmol/L (0.7-2.1)
[2021-09-12 10:34] LABS: INR 0.9; Prothrombin Time 12.2 Seconds (11.1-14.7)
[2021-09-12 10:35] LABS: Partial Thromboplastin Time 25.3 SECONDS (22.3-36.8)
--- NOTE | 2021-09-12 10:39 | PC.NURSE ---
Pt to ct at this time
[2021-09-12 10:42] LABS: Add Urine Microscopic? YES; Appearance Urine Cloudy (Clear); Bacteria Urine 4+ /hpf; Bilirubin Urine Negative (Negative); Color Urine Yellow (Yellow); Glucose Urine UA Negative (Negative); Ketones Urine Negative (Negative); Leukocyte Esterase Ur 1+ LEU/UL (Negative); Mucus Urine Heavy /lpf; Nitrate Urine Positive (Negative); Protein Urine Negative (Negative); RBC Urine 0-2 /hpf (0-2); Specific Grav Ur 1.019 (1.001-1.035); Squamous Epithelial Cell Urine Rare /hpf (Few); Urobilinogen Urine Negative mg/dL (<2.0); WBC Urine 21-30 /hpf
[2021-09-12 10:51] LABS: Blood Urine Negative (Negative)
--- NOTE | 2021-09-12 10:51 | PC.NURSE ---
Attempted to call pt emergency contact listed on paperwork sent by [place], no answer.
--- NOTE | 2021-09-12 11:15 | ED.GENADULT ---
HPI - General Adult General Chief complaint: Fall Stated complaint: FALL Time Seen by Provider: 09/12/21 09:17 Source: patient, EMS, RN notes reviewed and old records reviewed Mode of arrival: EMS Limitations: dementia History of Present Illness HPI narrative: Patient is a 56-year-old demented individual who presents from snf for evaluation of frequent falls also found to have blood in his stool. Patient is currently on Plavix history of strokes he has had multiple falls. He is an unreliable historian secondary to dementia he is alert and oriented only to himself on arrival. Patient presents with soft pressures in the room he is nondistressed Related Data Home Medications Medication Instructions Recorded Confirmed ferrous sulfate 324 mg PO BID 07/27/21 08/26/21 levothyroxine 25 mcg PO DAILY 07/27/21 08/26/21 megestrol 400 mg PO BID 08/26/21 08/26/21 pantoprazole [Protonix] 40 mg PO DAILY 08/26/21 08/26/21 Allergies Allergy/AdvReac Type Severity Reaction Status Date / Time amoxicillin Allergy Rash Verified 08/20/21 12:38 Review of Systems Review of Systems: ROS unobtainable: Yes unobtainable due to mental status PMFSH Past Medical History Medical History Adult failure to thrive CHF (congestive heart failure) Hypertension Stroke Tobacco dependence Surgical History Surgical History History of excision of testicular mass With benign histology. Family History Family History Father Chronic obstructive pulmonary disease Congestive heart failure Hypertension Mother Abdominal aortic aneurysm rupture Daughter Type 1 diabetes mellitus Social History Social History Social History: Surrogate decision maker: Bere Gagnon, sister. Code status: Full code. Smoking packs per day: 1 Smoking cigarettes per day: 20.0 Years smoked: 35 Smoking pack-years: 35.00 Smoking status: Current some day smoker Tobacco type: cigarettes Alcohol intake: current Drinks per week: 4 Alcohol use details: 3 to 4 beers per week. Substance use: unknown Substance use type: does not use Additional living arrangements comments: The patient lives in [place] with his brother. They are both currently unemployed and are living on food stamps. Additional occupation/education comments: Currently unemployed. Gender identity (if verbalized by the patient): Male Spiritual care concerns: No Exam Narrative: GENERAL: Chronically ill-appearing, well-nourished, and in no acute distress. HEAD: Normocephalic, atraumatic. EYES: PERRLA and EOMI. ENT: Nares clear, no rhinorrhea or epistaxis. Mucous membranes moist. NECK: Supple. No adenopathy or masses. CHEST: Clear to auscultation. No respiratory distress. No wheezes rales or rhonchi HEART: Regular rate and rhythm. No murmur heard. Normal peripheral pulses. ABDOMEN: Soft, nontender, nondistended EXTREMITIES: Normal range of motion. No edema. SKIN: Warm, dry, no rash. Patient with bruises and abrasions over the torso and extremities NEURO: Cranial nerves II through XII grossly intact. alert and oriented to self PSYCH: Normal mood and affect. Course Course Emergency Course: Patient presents with multiple falls they noted rectal bleeding he was guaiac negative he will be admitted to the hospital secondary to frequent falls initially was hypotensive responded well to fluids found to have urinary tract infection IV antibiotics were initiated. Patient will be placed in hospital secondary to these reasons he had skeletal imaging which was unremarkable. ABCs and vital signs intact and stable at this time Consultations Consultation #1: Discussed case with the hospitalist who has agreed to accept the
--- NOTE | 2021-09-12 11:20 | PC.NURSE ---
Report given to ANGÉLICA marshall who has assumed pt care at this time. Pt resting on stretcher, vss, call light in reach.
--- NOTE | 2021-09-12 12:00 | PC.NURSE ---
Repeat h/h sent to lab. Pt repositioned in bed. VS as documented. BP 107/70.
[2021-09-12 12:05] LABS: Hematocrit 23.5 % (42.0-52.0); Hemoglobin 7.6 g/dL (14.0-18.0)
--- NOTE | 2021-09-12 14:45 | PM.IMHP ---
H&P: HPI History of Present Illness Date/Time: 09/12/21 14:45 Chief Complaint: Fall. Narrative: This is a 56-year-old male smoker with history of stroke, alcohol abuse, hypertension, and anemia presented to the emergency department earlier today via EMS for evaluation after a fall. He is not the greatest historian due to underlying cognitive deficit and thus he has not the most reliable historian. According to documentation, the patient had an unwitnessed fall this morning and when questioned, he does not really remember exactly how he fell although he remembers standing up and feeling as though he was being pushed backwards. He believes he fell into ?some pipes? and he hit the right side of his back quite hard on what ever it is he fell into. He denies head trauma and loss of consciousness in the fall and he does not think he sustained any other injuries aside from that to his back. On exam he was noted to have bruising and abrasions in different stages of healing and with questioning he does mention that he frequently loses his balance. Reportedly he was also noted to have some blood in his stool, and it is my understanding that his stool was Hemoccult negative on exam in the emergency department. Additionally the patient reports urinary urgency and incontinence for the past several days. He denies headache, diplopia, focal weakness, paresthesias, chest pain, shortness of breath, nausea, vomiting, and diarrhea. Review of Systems Review of Systems: Twelve systems were reviewed. The patient had a stroke within the last year with residual left-sided weakness and cognitive decline. He has been staying at a assisted since that time. Somewhat limited given his presumed underlying dementia. He denies fever, chills, and sweats. He is extremely thin and has continued to lose weight however he tells me that he has gotten his appetite back and ?I am eating everything in sight.? I then offered him something to eat and drink and he declined both. Instead he is asking for pain medication due to back pain from his fall. He denies dysphagia. Except as documented, all other systems were reviewed and are negative. [facility] Past Medical History Medical History Alcohol dependence Cerebrovascular accident With left-sided residual weakness. Chronic anemia Chronic hyponatremia Congestive heart failure Echocardiogram on 07/17/2021 showed normal LV chamber dimension and function with an estimated EF of 65 to 70% and grade 1 diastolic dysfunction with mild pulmonary hypertension estimated pulmonary arterial systolic pressure of 37 mmHg. COVID (08/2021) Gastroesophageal reflux disease Hypertension Hypothyroidism Protein calorie malnutrition Tobacco dependence Surgical History Surgical History History of excision of testicular mass With benign histology. Family History Family History Father Chronic obstructive pulmonary disease Congestive heart failure Hypertension Mother Abdominal aortic aneurysm rupture Daughter Type 1 diabetes mellitus Social History Social History Social History: Surrogate decision maker: Bere Kalin, sister. Code status: Full code. Smoking packs per day: 1 Smoking cigarettes per day: 20.0 Years smoked: 35 Smoking pack-years: 35.00 Smoking status: Smoker, status unknown Tobacco type: cigarettes Alcohol intake: former Drinks per week: 4 Alcohol use details: 3 to 4 beers per week. Substance use: unknown Substance use type: does not use Additional living arrangements comments: Resident at [facility]. Additional occupation/education comments: Unemployed. Spiritual care concerns: No Meds Home Medications and Allergies Home Medications
[2021-09-12] MEDS: SODIUM CHLORIDE 0.9% IV 250 ML 30 ML IV CONT (16:00)
[2021-09-12] MEDS: TUBING, BLOOD PLUM PUMP TUBING 1 EACH XX (16:01)
--- NOTE | 2021-09-12 17:19 | WPDGICN ---
Assessment and Plan Assessment and plan (1) Anemia: Code(s): D64.9 - Anemia, unspecified Status: Acute Assessment and Plan: he has a slightly macrocytic anemia. His hemoglobin last month was 9.7 and MCV was 91. Just a few weeks ago B12 and folic acid levels were measured and were normal (2) Rectal bleeding: Code(s): K62.5 - Hemorrhage of anus and rectum Status: Acute Assessment and Plan: he has not seen the blood. A stool Hemoccult in the emergency room was apparently negative. He has been given 1 unit of blood already has been started on Protonix I will begin prep tomorrow for colonoscopy and EGD to be done on (3) Protein calorie malnutrition: Code(s): E46 - Unspecified protein-calorie malnutrition Status: Acute Assessment and Plan: he seems to have decreased muscle mass for somebody his age and I suspect he does not eat well (4) Stroke: Code(s): I63.9 - Cerebral infarction, unspecified Status: Acute Assessment and Plan: has a history of strokes he is on Plavix but we will need to hold that while we investigate for gastrointestinal bleeding. GI Consult Note Consult date/time: 09/12/21 17:19 HPI: Simon Barraza is a 56 year old male was brought to the emergency room today because of a history of having frequent falls lately. Also was found to have blood in his stools. He states that he has not seen the blood himself but he admits that sometimes in the past he has had very dark stools. He has had strokes in the past and therefore is on Plavix for. He denies abdominal pain he is hungry now. He denies nausea vomiting or dysphagia. . He states his bowel movements are usually fairly regular. He smokes over 1 pack of cigarettes per day and drinks alcohol 4 days a week. In the emergency room he was found to be very anemic with a hemoglobin of 7.6 and hematocrit 23.5. MCV is 100. Platelet count is adequate Review of Systems Review of Systems: All systems reviewed & are unremarkable except as noted in HPI and below PMFSH Past Medical History Medical History Alcohol dependence Cerebrovascular accident With left-sided residual weakness. Chronic anemia Chronic hyponatremia Congestive heart failure Echocardiogram on 07/17/2021 showed normal LV chamber dimension and function with an estimated EF of 65 to 70% and grade 1 diastolic dysfunction with mild pulmonary hypertension estimated pulmonary arterial systolic pressure of 37 mmHg. COVID (08/2021) Gastroesophageal reflux disease Hypertension Hypothyroidism Protein calorie malnutrition Tobacco dependence Surgical History Surgical History History of excision of testicular mass With benign histology. Family History Family History Father Chronic obstructive pulmonary disease Congestive heart failure Hypertension Mother Abdominal aortic aneurysm rupture Daughter Type 1 diabetes mellitus Social History Social History Social History: Surrogate decision maker: Bere Rushjewelshoda, sister. Code status: Full code. Smoking packs per day: 1 Smoking cigarettes per day: 20.0 Years smoked: 35 Smoking pack-years: 35.00 Smoking status: Current some day smoker Tobacco type: cigarettes Alcohol intake: current Drinks per week: 4 Alcohol use details: 3 to 4 beers per week. Substance use: unknown Substance use type: does not use Additional living arrangements comments: Resident at [facility]. Additional occupation/education comments: Unemployed. Meds Home Medications and Allergies Home Medications Medication Instructions Recorded Confirmed Type albuterol sulfate 2 puff INHALATION QID PRN #8.5 g 0
[2021-09-12] MEDS: FAMOTIDINE 20 MG/2 ML VIAL IV PUSH (20:39)
[2021-09-13] VITALS (11 sets, daily range): BP systolic 109–149; BP diastolic 64–88; PULSE 70–95; RESP 16–20; TEMP 36.4–37.1; O2SAT 96–100; BMI 16.3
[2021-09-13] MEDS: LEVOTHYROXINE SODIUM 25 MCG TABLET PO (06:36)
[2021-09-13] MEDS: PANTOPRAZOLE 40 MG TABLET PO ×2 (08:52→16:51)
[2021-09-13] MEDS: FERROUS SULFATE 324 MG TABLET PO ×2 (08:52→16:51)
[2021-09-13] MEDS: GABAPENTIN 100 MG CAPSULE PO ×3 (08:52→16:51)
[2021-09-13] MEDS: THIAMINE HCL 100 MG TABLET PO (08:52)
[2021-09-13] MEDS: FOLIC ACID 1 MG TABLET PO (08:53)
[2021-09-13 09:10] LABS: Basophils Absolute Auto 0.1 K/mm3 (0.0-0.1); Basophils Percent Auto 0.5 % (0.2-1.2); Eosinophils Absolute Auto 0.5 K/mm3 (0-0.3); Eosinophils Percent Auto 5.2 % (0-4.4); Hematocrit 28.6 % (42.0-52.0); Hemoglobin 9.6 g/dL (14.0-18.0); Immature Granulocyte Absolute 0.16 K/mm3 (0.00-0.031); Immature Granulocyte Percent A 1.7 % (0-0.5); Lymphocytes Absolute Auto 1.04 K/mm3 (0.9-3.2); Mean Corpuscular HGB Conc 33.6 g/dl (32-36); Mean Corpuscular Hemoglobin 31.5 pg (26-34); Mean Corpuscular Volume 93.8 fl (80-100); Mean Platelet Volume 8.5 fl (7.4-10.4); Monocytes Absolute Auto 0.7 K/mm3 (0.1-0.6); Monocytes Percent Auto 7.2 % (2.6-8.5); Neutrophils Percent Auto 74.4 % (45.5-73.1); Platelet Count Result 473 k/mm3 (150-375); Red Blood Count 3.05 M/mm3 (4.6-6.20); Red Cell Distribution Width 18.2 % (11.5-14.5); White Blood Count 9.5 K/mm3 (4.5-10.0)
[2021-09-13 09:51] LABS: Alanine Aminotransferase 15 U/L (4-50); Albumin Level 2.7 g/dL (3.5-5.1); Alkaline Phosphatase 63 U/L (38-126); Anion Gap 3 mmol/L (8-16); Aspartate Amino Transferase 34 U/L (17-59); Bilirubin,Total 0.5 mg/dL (0.2-1.3); Blood Urea Nitrogen 22 mg/dL (9-20); Calcium 8.3 mg/dL (8.4-10.2); Carbon Dioxide 26 mmol/L (22-30); Chloride 102 mmol/L (98-107); Estimated CRCL calculation 91 ml/min; Estimated Glomerular Filt Rate > 60; Glucose 129 mg/dL (65-110); Magnesium 1.4 mg/dL (1.6-2.3); Potassium 4.7 mmol/L (3.4-5.0); Sodium 131 mmol/L (137-145)
--- NOTE | 2021-09-13 13:03 | PM.IMPN ---
Progress Note: A&P Assessment and Plan (1) Unwitnessed fall: Code(s): R29.6 - Repeated falls Status: Acute Assessment and Plan: CT of spine, head, chest a/p with no acute findings Fall precautions PT/OT to evalu and treat (2) Generalized weakness: Code(s): R53.1 - Weakness Status: Acute Assessment and Plan: Hx of CVA Suspect multifactorial; due to UTI and anemia Supportive care (3) Urinary tract infection: Code(s): N39.0 - Urinary tract infection, site not specified Status: Acute Assessment and Plan: Continue Rocephin Follow culture (4) Rectal bleeding: Code(s): K62.5 - Hemorrhage of anus and rectum Status: Acute Assessment and Plan: Stool occult neg in ED GI consulted, recommendations appreciated Plan for colonoscopy and EGD Continue Protonix gtt Clears (5) Chronic hyponatremia: Code(s): E87.1 - Hypo-osmolality and hyponatremia Status: Acute Assessment and Plan: Na+ 131 today Monitor (6) Chronic anemia: Code(s): D64.9 - Anemia, unspecified Status: Acute Assessment and Plan: Hgb 9.6 today S/p 1 unit of PRBC in ED Transfuse if <7 Monitor (7) Hypothyroidism: Code(s): E03.9 - Hypothyroidism, unspecified Status: Acute Assessment and Plan: TSH wnl Continue Levothyroxine (8) Gastroesophageal reflux disease: Code(s): K21.9 - Gastro-esophageal reflux disease without esophagitis Status: Acute Assessment and Plan: PPI (9) Congestive heart failure: Code(s): I50.9 - Heart failure, unspecified Status: Acute Assessment and Plan: Appears compensated Hold Lasix and statin for now Monitor (10) Protein calorie malnutrition: Code(s): E46 - Unspecified protein-calorie malnutrition Status: Acute Additional Plan Code status: DNR Disposition: pending hospital course Subjective Date/time seen: 09/13/21 13:03 Interval history: pt seen and evaluated; no acute events reported by nursing staff last evening; Review of Systems Review of Systems: All systems reviewed & are unremarkable except as noted in HPI and below Exam Const: General: no acute distress, alert and awake HENMT: Head: normocephalic and atraumatic Face and sinus: face symmetric Mouth: Yes Normal oral and palatal mucosa present Eyes: EOM: EOMs intact bilaterally Neck: Neck: full ROM, trachea midline and no JVD Resp: Effort & Inspection: normal respiratory effort Auscultation: clear to auscultation bilaterally Cardio: Jugular venous distension: no JVD Rate: regular rate Rhythm: regular rhythm Heart sounds: S1 normal heart sound present and S2 normal heart sound present GI: Inspection: normal to inspection GI Palp: Yes Soft to palpation Percussion: Yes normal to percussion Auscultation: normal bowel sounds : General: Yes no CVA tenderness Back/Spine/Pelvis: Back: no CVA tenderness Skin: Rashes: no rashes Trauma: other (contusions and abrasions on the right mid and upper back) Neuro: General: oriented to person Cranial nerves: Yes Equal, round and reactive pupils present Speech: normal speech Psych: Appearance: grossly normal Affect: normal affect Judgement: Good judgement present (Psych) Objective Data Vital Signs Vital Signs: Vital Signs - 24 hr 09/12/21 13:15 09/12/21 13:16 09/12/21 13:30 Temperature Pulse Rate 80 78 74 Respiratory Rate 16 14 13 Blood Pressure 124/88 110/78 Pulse Oximetry 09/12/21 13:31 09/12/21 13:45 09/12/21 13:46 Temperature Pulse Rate 73 67 67 Respiratory Rate 13 11 L 11 L Blood Pressure 105/77 Pulse Oximetry 09/12/21 14:00 09/12/21 14:01 09/12/21 14:04 Temperature 36.7 C Pulse Rate 75 73 80 Respiratory Rate 16 15 17 Blood Pressure 106/75 106/75 Pulse Oximetry 100 100 100 09/12/21 14:15 09/12/21 14:16 09/12/21 14:20 Temperature 36.7 C Pulse Rate
[2021-09-13] MEDS: polyethylene glycoL 3350 238 GM BOTTLE PO (14:48)
[2021-09-13] MEDS: BISACODYL 5 MG TABLET EC 10 MG PO ×2 (14:48→20:34)
--- NOTE | 2021-09-13 15:32 | PCOTNOTE ---
Attempted to see patient for OT evaluation this afternoon. Patient adamantly declining any/all activity stating his back hurts and that he was too hungry. RN notified. Will continue to attempt.
[2021-09-14] VITALS (12 sets, daily range): BP systolic 97–148; BP diastolic 64–97; PULSE 61–142; RESP 15–22; TEMP 36–36.9; O2SAT 95–100
[2021-09-14] MEDS: BISACODYL 5 MG TABLET EC 10 MG PO (03:53)
[2021-09-14 05:34] LABS: Hemoglobin 9.6 g/dL (14.0-18.0)
[2021-09-14 05:51] LABS: Anion Gap 4 mmol/L (8-16); Blood Urea Nitrogen 14 mg/dL (9-20); Calcium 8.6 mg/dL (8.4-10.2); Carbon Dioxide 28 mmol/L (22-30); Chloride 101 mmol/L (98-107); Estimated CRCL calculation 108 ml/min; Estimated Glomerular Filt Rate > 60; Glucose 91 mg/dL (65-110); Potassium 4.2 mmol/L (3.4-5.0); Sodium 133 mmol/L (137-145)
--- NOTE | 2021-09-14 08:21 | PCPTNOTE ---
attempted PT evaluation ~ 800, RN reports they are coming up to get pt for colonoscopy. unable to perform PT eval.
--- NOTE | 2021-09-14 08:41 | PCOTNOTE ---
Attempted OT evaluation, patient going off unit for a procedure, will follow and attempt at later time.
[2021-09-14] MEDS: LACTATED RINGERS 1,000 ML 150 ML IV CONT (09:39)
--- NOTE | 2021-09-14 10:51 | WPDANESEPPF ---
Anes - Initial Pre Proc Eval Procedure: Operation Date: 09/14/21 13:15 Proposed Procedures p Esophagogastroduodenoscopy & Colonoscopy - Herb Paris MD Date/Time: 09/14/21 10:51 Surgeon: Sydnee aKpoor MD Pre Op Diagnosis: GI Bleed, Anemia, UTI Patient Data Age: 56 Gender: M Height: 1.83 m Weight: 53.2 kg Last Vital Signs Temp 96.8 F L 09/14/21 09:44 Pulse 61 09/14/21 09:44 Resp 18 09/14/21 09:44 BP 145/80 H 09/14/21 09:44 Pulse Ox 100 09/14/21 09:44 Allergies Allergy/AdvReac Type Severity Reaction Status Date / Time amoxicillin Allergy Rash Verified 09/14/21 09:42 Home Medications Medication Instructions Recorded Confirmed Type ferrous sulfate 324 mg PO BID 07/27/21 09/12/21 History levothyroxine 25 mcg PO DAILY 07/27/21 09/12/21 History atorvastatin 20 mg PO HS #30 tablet 07/30/21 09/12/21 Rx potassium chloride [K-Tab] 20 meq PO DAILY@0800 #60 tablet 07/30/21 09/12/21 Rx Minerin Creme 1 applic TOPICAL BID #113 g 08/17/21 09/12/21 Rx clopidogrel 75 mg PO QAM #30 tablet 08/17/21 09/12/21 Rx folic acid 1 mg PO DAILY #30 tablet 08/17/21 09/12/21 Rx gabapentin 100 mg PO TID #90 cap 08/17/21 09/12/21 Rx thiamine HCl (vitamin B1) [Vitamin 100 mg PO QAM #30 tablet 08/17/21 09/12/21 Rx B-1] megestrol 400 mg PO BID 08/26/21 09/12/21 History pantoprazole [Protonix] 40 mg PO BID 08/26/21 09/12/21 History albuterol sulfate 2.5 mg INHALATION Q6HRT PRN #30 ea 08/30/21 09/12/21 Rx cyanocobalamin (vitamin B-12) 1,000 mcg PO DAILY #30 cap 08/30/21 09/12/21 Rx docusate sodium 100 mg PO BID #0 cap 08/30/21 09/12/21 Rx furosemide [Lasix] 40 mg PO DAILY #10 tablet 08/30/21 09/12/21 Rx bisacodyl 10 mg RECTAL DAILY PRN 09/12/21 09/12/21 History magnesium citrate 296 ml PO DAILY PRN 09/12/21 09/12/21 History sodium phosphates [Fleet Enema] 118 ml RECTAL AC 09/12/21 09/12/21 History Laboratory Tests 09/14/21 09/14/21 05:23 05:23 Hgb 9.6 g/dL L g/dL (14.0-18.0) Hct 29.0 % L % (42.0-52.0) Sodium 133 mmol/L L mmol/L (137-145) Potassium 4.2 mmol/L mmol/L (3.4-5.0) Chloride 101 mmol/L mmol/L (98-107) Carbon Dioxide 28 mmol/L mmol/L (22-30) Anion Gap 4 mmol/L L mmol/L (8-16) BUN 14 mg/dL D mg/dL (9-20) Creatinine 0.50 mg/dL L mg/dL (0.7-1.3) Estim Creat Clear Calc 108 ml/min ml/min Estimated GFR > 60 (59 - ) Glucose 91 mg/dL mg/dL (65-110) Calcium 8.6 mg/dL mg/dL (8.4-10.2) Patient hx anesthesia problems: none Family hx anesthesia problems: none Results Review: All pre-operative results and documents have been reviewed as part of the pre-operative evaluation. [facility] Past Medical History Medical History Alcohol dependence Cerebrovascular accident With left-sided residual weakness. Chronic anemia Chronic hyponatremia Congestive heart failure Echocardiogram on 07/17/2021 showed normal LV chamber dimension and function with an estimated EF of 65 to 70% and grade 1 diastolic dysfunction with mild pulmonary hypertension estimated pulmonary arterial systolic pressure of 37 mmHg. COVID (08/2021) Gastroesophageal reflux disease Hypertension Hypothyroidism Protein calorie malnutrition Tobacco dependence Surgical History Surgical History History of excision of testicular mass With benign histology. Family History Family History Father Chronic obstructive pulmonary disease Congestive heart failure Hypertension Mother Abdominal aortic aneurysm rupture Daughter Type 1 diabetes mellitus Social History Social History Social History: Surrogate decision maker: Bere Kalin, sister. Code status: Full code. Smoking pa
--- NOTE | 2021-09-14 12:56 | PM.IMPN ---
Progress Note: A&P Assessment and Plan (1) Unwitnessed fall: Code(s): R29.6 - Repeated falls Status: Acute Assessment and Plan: CT of spine, head, chest a/p with no acute findings Fall precautions PT/OT to evalu and treat (2) Generalized weakness: Code(s): R53.1 - Weakness Status: Acute Assessment and Plan: Hx of CVA Suspect multifactorial; due to UTI and anemia Supportive care (3) Urinary tract infection: Code(s): N39.0 - Urinary tract infection, site not specified Status: Acute Assessment and Plan: S/p Rocephin UC-->Escherichia Coli (ESBL) Will start Ertapenem (4) Rectal bleeding: Code(s): K62.5 - Hemorrhage of anus and rectum Status: Acute Assessment and Plan: Stool occult neg in ED GI consulted, recommendations appreciated S/p colonoscopy-->diverticulosis w/o perforation; and EGD-->NERD S/p Protonix gtt PPI daily ADAT (5) Chronic hyponatremia: Code(s): E87.1 - Hypo-osmolality and hyponatremia Status: Acute Assessment and Plan: Na+ 131-->133 today Monitor (6) Chronic anemia: Code(s): D64.9 - Anemia, unspecified Status: Acute Assessment and Plan: Stable Hgb 9.6-->9.6 today S/p 1 unit of PRBC in ED Transfuse if <7 Monitor (7) Hypothyroidism: Code(s): E03.9 - Hypothyroidism, unspecified Status: Acute Assessment and Plan: TSH wnl Continue Levothyroxine (8) Gastroesophageal reflux disease: Code(s): K21.9 - Gastro-esophageal reflux disease without esophagitis Status: Acute Assessment and Plan: PPI (9) Congestive heart failure: Code(s): I50.9 - Heart failure, unspecified Status: Acute Assessment and Plan: Appears compensated Hold Lasix and statin for now Monitor (10) Protein calorie malnutrition: Code(s): E46 - Unspecified protein-calorie malnutrition Status: Acute Additional Plan Code status: DNR Disposition: pending hospital course Subjective Date/time seen: 09/14/21 12:56 Interval history: 09/13 pt seen and evaluated; no acute events reported by nursing staff last evening 09/14 pt seen this a.m.; no new complaints; plan for EGD and colonoscopy today Review of Systems Review of Systems: All systems reviewed & are unremarkable except as noted in HPI and below Exam Const: General: no acute distress, alert and awake Orientation/consciousness: oriented to person HENMT: Head: normocephalic and atraumatic Face and sinus: face symmetric Mouth: Yes Normal oral and palatal mucosa present Eyes: Pupils: Equal, round and reactive pupils present EOM: EOMs intact bilaterally Neck: Neck: full ROM, trachea midline and no JVD Resp: Effort & Inspection: normal respiratory effort Auscultation: clear to auscultation bilaterally Cardio: Jugular venous distension: no JVD Rate: regular rate Rhythm: regular rhythm Heart sounds: S1 normal heart sound present and S2 normal heart sound present GI: Inspection: normal to inspection Auscultation: normal bowel sounds : General: Yes no CVA tenderness Back/Spine/Pelvis: Back: no CVA tenderness Skin: General skin exam: normal color Rashes: no rashes Trauma: other (contusions and abrasions on the right mid and upper back) Neuro: General: oriented to person Cranial nerves: Yes Equal, round and reactive pupils present Speech: normal speech Psych: Appearance: grossly normal Affect: normal affect Judgement: Good judgement present (Psych) Objective Data Vital Signs Vital Signs: Vital Signs - 24 hr 09/13/21 16:00 09/13/21 20:00 09/13/21 20:22 Temperature 36.7 C Pulse Rate 80 88 80 Respiratory Rate 18 18 Blood Pressure 120/84 Pulse Oximetry 99 96 09/13/21 22:00 09/14/21 00:00 09/14/21 04:00 Temperature 36.6 C Pulse Rate 71 68 69 Respiratory Rate 20 Blood Pressure 124/75 Pulse Oximetry 100 09/14/21 06:00 09/14/21 09
[2021-09-14] MEDS: THIAMINE HCL 100 MG TABLET PO (13:03)
[2021-09-14] MEDS: diphenhydrAMINE HCl INJ 50 MG/ML VIAL 25 MG IV PUSH (13:03)
[2021-09-14] MEDS: FOLIC ACID 1 MG TABLET PO (13:03)
[2021-09-14] MEDS: GABAPENTIN 100 MG CAPSULE PO ×2 (13:03→17:29)
[2021-09-14] MEDS: ERTAPENEM 1 GM/NS 50 ML 1 GM/50 ML BAG IVPB (13:35)
[2021-09-14] MEDS: HYDROcodone/acetaminophen (*CRX) 5-325 MG TABLET 1 TAB PO (13:35)
[2021-09-14] MEDS: FERROUS SULFATE 324 MG TABLET PO (17:29)
[2021-09-15] VITALS: BP 138/60; PULSE 78; PULSE 98; RESP 16; TEMP 36.9; O2SAT 97
[2021-09-15 04:00] VITALS: BP 104/64; PULSE 77; PULSE 78; RESP 16; TEMP 36.8; O2SAT 100
[2021-09-15] MEDS: LEVOTHYROXINE SODIUM 25 MCG TABLET PO (07:00)
[2021-09-15 08:30] LABS: Hematocrit 29.4 % (42.0-52.0); Hemoglobin 9.4 g/dL (14.0-18.0)
[2021-09-15] MEDS: HYDROcodone/acetaminophen (*CRX) 5-325 MG TABLET 1 TAB PO (10:18)
[2021-09-15] MEDS: GABAPENTIN 100 MG CAPSULE PO (10:18)
[2021-09-15] MEDS: THIAMINE HCL 100 MG TABLET PO (10:18)
[2021-09-15] MEDS: FOLIC ACID 1 MG TABLET PO (10:18)
[2021-09-15] MEDS: FERROUS SULFATE 324 MG TABLET PO (10:18)
--- NOTE | 2021-09-15 10:23 | WPDANESPN ---
Anes - Prog Note Post-Op Date/Time: 09/15/21 10:23 Cardiovascular status: normal Respiratory status: normal Airway patency: baseline Mental status: baseline Post-Op hydration status: normal Vital Signs: Last Vital Signs Temp 36.8 C 09/15/21 04:00 Pulse 77 09/15/21 04:00 Resp 16 09/15/21 04:00 BP 104/64 09/15/21 04:00 Pulse Ox 100 09/15/21 04:00 Pain Score (VAS): 0 I/O: Intake & Output 09/14/21 09/15/21 09/15/21 23:59 07:59 15:59 Intake Total 480 300 360 Balance 480 300 360 Laboratory Tests 09/15/21 08:13 09/14/21 05:23 09/15/21 08:13 Hgb 9.4 L Hct 29.4 L Microbiology 09/12/21 10:19 Urine Catheterized Urine Culture - Final Escherichia Coli (ESBL) Post-procedural complaints: none Patient Feedback: Patient satisfied with anesthetic care.
--- NOTE | 2021-09-15 13:08 | PM.DS ---
DS: Admitting Diagnosis Discharge Date 09/15/2021 Admitting Diagnosis fall; weakness DS: Discharge Diagnosis Discharge Diagnosis (1) Unwitnessed fall: Code(s): R29.6 - Repeated falls Status: Acute Assessment and Plan: CT of spine, head, chest a/p with no acute findings Fall precautions PT/OT to evalu and treat (2) Generalized weakness: Code(s): R53.1 - Weakness Status: Acute Assessment and Plan: Hx of CVA Suspect multifactorial; due to UTI and anemia Supportive care (3) Urinary tract infection: Code(s): N39.0 - Urinary tract infection, site not specified Status: Acute Assessment and Plan: S/p Rocephin UC-->Escherichia Coli (ESBL) D/c with oral antibiotics S/p Ertapenem (4) Rectal bleeding: Code(s): K62.5 - Hemorrhage of anus and rectum Status: Acute Assessment and Plan: Stool occult neg in ED GI consulted, recommendations appreciated S/p colonoscopy-->diverticulosis w/o perforation; and EGD-->NERD S/p Protonix gtt PPI daily Tolerating po (5) Chronic hyponatremia: Code(s): E87.1 - Hypo-osmolality and hyponatremia Status: Acute Assessment and Plan: Na+ 131-->133 09/14Monitor (6) Chronic anemia: Code(s): D64.9 - Anemia, unspecified Status: Acute Assessment and Plan: Stable Hgb 9.6-->9.6-->9.4 today S/p 1 unit of PRBC in ED Transfuse if <7 Monitor (7) Hypothyroidism: Code(s): E03.9 - Hypothyroidism, unspecified Status: Acute Assessment and Plan: TSH wnl Continue Levothyroxine (8) Gastroesophageal reflux disease: Code(s): K21.9 - Gastro-esophageal reflux disease without esophagitis Status: Acute Assessment and Plan: PPI (9) Congestive heart failure: Code(s): I50.9 - Heart failure, unspecified Status: Acute Assessment and Plan: Appears compensated Hold Lasix and statin for now Monitor (10) Protein calorie malnutrition: Code(s): E46 - Unspecified protein-calorie malnutrition Status: Acute DS: Summary Hospital Course Hospital Course: 56-year-old male smoker with history of stroke, alcohol abuse, hypertension, and anemia presented to the emergency department earlier today via EMS for evaluation after a fall. He is not the greatest historian due to underlying cognitive deficit and thus he has not the most reliable historian. According to documentation, the patient had an unwitnessed fall this morning and when questioned, he does not really remember exactly how he fell although he remembers standing up and feeling as though he was being pushed backwards. He believes he fell into ?some pipes? and he hit the right side of his back quite hard on what ever it is he fell into. He denied head trauma and loss of consciousness in the fall and he does not think he sustained any other injuries aside from that to his back. On exam he was noted to have bruising and abrasions in different stages of healing and with questioning he does mention that he frequently loses his balance. Reportedly he was also noted to have some blood in his stool, and it is my understanding that his stool was Hemoccult negative on exam in the emergency department. Additionally the patient reports urinary urgency and incontinence for the past several days. He denies headache, diplopia, focal weakness, paresthesias, chest pain, shortness of breath, nausea, vomiting, and diarrhea. The patient underwent EGD and colonoscopy with no source of bleeding found. He was treated with IV antibiotics for a UTI and will be discharged on oral antibiotics. The patient is hemodynamically stable and will discharge to the [place]. Time Spent with Patient Time attestation: Total time spent providing and/or coordinating discharge services: Time spent: Greater than 30 minutes Exam Const: General: no acute distress, alert and awake Orientation/consciousness: oriented to person and patient
== END 2021-09-15 14:14 | DRG 463 ==
LOC: ANHED 12:25 → ANH3MEDSUR 15:25 → ANH2MED 15:25
PROVIDERS: Emergency Medicine Emergency Medical Services; Internal Medicine Gastroenterology; Nurse Practitioner Adult Health; Physician Assistant; Admitting Provider Hospitalist; Emergency Provider Emergency Medicine; PCP Family Medicine; Visit Provider Internal Medicine
PROC: 0DJ08ZZ Inspection of Upper Intestinal Tract, Via Natural or Artificial Opening Endoscopic (ICD-10-PCS; CPT 43235; principal; 2021-09-14 13:15)
DX: N39.0 Urinary tract infection, site not specified (principal); I69.354 Hemiplegia and hemiparesis following cerebral infarction affecting left non-dominant side; B96.20 Unspecified Escherichia coli [E. coli] as the cause of diseases classified elsewhere; D64.9 Anemia, unspecified; K62.5 Hemorrhage of anus and rectum; K57.30 Diverticulosis of large intestine without perforation or abscess without bleeding; K64.8 Other hemorrhoids; K21.9 Gastro-esophageal reflux disease without esophagitis; I69.319 Unspecified symptoms and signs involving cognitive functions following cerebral infarction; I50.32 Chronic diastolic (congestive) heart failure; E87.1 Hypo-osmolality and hyponatremia; E03.9 Hypothyroidism, unspecified; E46 Unspecified protein-calorie malnutrition; S20.411A Abrasion of right back wall of thorax, initial encounter; S20.221A Contusion of right back wall of thorax, initial encounter; W19.XXXA Unspecified fall, initial encounter; F10.20 Alcohol dependence, uncomplicated; R29.6 Repeated falls; E86.0 Dehydration; Z66 Do not resuscitate; F17.210 Nicotine dependence, cigarettes, uncomplicated; Z68.1 Body mass index [BMI] 19.9 or less, adult; Z79.02 Long term (current) use of antithrombotics/antiplatelets; Z86.16 Personal history of COVID-19
CPT/HCPCS: 36415; 36430; 70450; 71260; 72125; 74177; 80048; 80053; 81001; 83605; 83690; 83735; 84443; 85014; 85018; 85025; 85610; 85730; 86140; 86850; 86900; 86901; 86920; 87040; 87077; 87081; 87086; 87088; 87186; 88305; 93005; 96361; 96365; 96366; 96367; 96368; 97162; 97165; 99285; A9270; C9113; J0131; J0696; J1200; J1335; J2704; J7030; J7050; J7060; J7120; P9016; Q9967

== ENCOUNTER 2022-11-09 15:23 | Inpatient (IN) | payer OTHER, SELFPAY ==
[2022-11-09] VITALS (11 sets, daily range): BP systolic 77–102; BP diastolic 60–89; PULSE 60–97; RESP 12–20; TEMP 36.1–36.3; O2SAT 94–100
--- NOTE | ~2022-11-09 | XR_ITS ---
EXAMINATION: XR chest 1V portable DATE: 11/12/2022 06:44 INDICATION: Pneumonia. TECHNIQUE: A single frontal view of the chest was obtained. COMPARISON: Chest single view 11/11/2022, chest CT 09/12/2021 FINDINGS: There is an interstitial pattern in the lungs. No pleural effusion or pneumothorax. The hea rt size is normal. Calcified hilar lymph nodes are consistent with old granulomatous disease. IMPRESSION: 1. Interstitial pattern in the lungs, which may be mild pulmonary edema or mild atelectasis/scarring. Reviewed, dictated and finalized at location A. CONTAINER SHIPPER
--- NOTE | ~2022-11-09 | CT_ITS ---
EXAMINATION: CT brain wo con INDICATION: Seizure COMPARISON: 09/12/2021 TECHNIQUE: Standard unenhanced head CT. The dose-length product (DLP) was 605.33 mGy-cm. The mA was a djusted according to patient size. Iterative reconstruction technique was employed. FINDINGS: There is no acute intraparenchymal hemorrhage. No evidence of mass lesion. No evidence of a cute infarction. Areas of prior infarction in the occipital lobes, the left parietal lobe, the left b keyshawn ganglia, and the left frontal lobe. There is moderate periventricular and subcortical hypodensit y probably related to small vessel ischemic disease. There is moderate prominence of the sulci and ve ntricles related to cerebral atrophy. Intracranial calcified cerebral atherosclerosis is noted. There are no extra-axial collections. There is no mass effect or midline shift. Changes in the globes are likely from ocular lens surgery. There is mild mucosal thickening of the paranasal sinuses. IMPRESSION: 1. Areas of prior infarction without acute intracranial abnormality. 2. Age related findings. Reviewed, dictated and finalized at location A. ERENCE PLANNING MANAGER
--- NOTE | ~2022-11-09 | XR_ITS ---
EXAMINATION: XR chest 1V portable INDICATION: Coarse breath sounds TECHNIQUE: Portable AP chest at 0954 hours COMPARISON: 11/09/2022 FINDINGS: There are minimal airspace opacities in the right lung base. No pleural effusion or pneumot horax. The cardiomediastinal silhouette is normal IMPRESSION: 1. Right basilar airspace opacities, consistent with atelectasis versus pneumonia. Reviewed, dictated and finalized at location A. FITTER IMPRESSION: 1. Right basilar airspace opacities, consistent with atelectasis versus pneumon ia.
--- NOTE | ~2022-11-09 | XR_ITS ---
EXAMINATION: XR chest 1V portable INDICATION: Pulmonary edema TECHNIQUE: Portable AP chest at 0513 hours COMPARISON: 11/10/2022 FINDINGS: Right basilar airspace opacities persist without significant change. No pleural effusion or pneumothorax. The cardiac mediastinal silhouette is normal. IMPRESSION: 1. Stable right basilar airspace opacities, consistent with atelectasis versus pneumonia. Reviewed, dictated and finalized at location A. THESIOLOGIST PHYSICIAN
--- NOTE | ~2022-11-09 | XR_ITS ---
EXAMINATION: XR chest 1V portable INDICATION: Seizure TECHNIQUE: Portable AP chest at 1613 hours COMPARISON: 08/26/2021 FINDINGS: The lungs are free of acute opacities. No pleural effusion or pneumothorax. The cardiomedia stinal silhouette is normal. The visualized bones and soft tissues are unremarkable. IMPRESSION: 1. No acute cardiopulmonary abnormality. Reviewed, dictated and finalized at location A. INFORMATICA DEVELOPER
[2022-11-09 15:28] LABS: Glucose Point of Care 113 mg/dl (65-105)
--- NOTE | 2022-11-09 15:45 | ECG_ITS ---
Measurements Intervals [place] Rate: 79 P: 88 IA: 149 QRS: 269 QRSD: 177 T: 74 QT: 458 QTc: 527 Interpretive Statements SINUS RHYTHM MARKED RIGHT AXIS DEVIATION [QRS AXIS > 100] RIGHT BUNDLE BRANCH BLOCK [120+ ms QRS DURATION, UPRIGHT V1, 40+ ms S IN I/aVL/V4/V5/V6] MARKED T-WAVE ABNORMALITY, CONSIDER ANTERIOR ISCHEMIA [-0.5+ mV T WAVE IN V3/V4] COMPARED TO ECG 09/12/2021 10:37:09 PRECORDIAL T-WAVE INVERSION IS MORE PRONOUNCED Electronically Signed On 11-09-2022 16:49:29 AUTOCAD DETAILER by Sundar Benavides M.D.
--- NOTE | 2022-11-09 15:48 | PC.NURSE ---
pt. last known normal approx. 1515 and 1530
--- NOTE | 2022-11-09 16:00 | PC.NURSE ---
pt. refusing straight cath. MD ojeda okay with waiting for UA.
[2022-11-09 16:02] LABS: Basophils Absolute Auto 0.1 K/mm3 (0.0-0.1); Basophils Percent Auto 0.9 % (0.2-1.2); Eosinophils Percent Auto 0.3 % (0-4.4); Hematocrit 34.8 % (42.0-52.0); Hemoglobin 12.6 g/dL (14.0-18.0); Immature Granulocyte Absolute 0.07 K/mm3 (0.00-0.031); Immature Granulocyte Percent A 0.9 % (0-0.5); Lymphocytes Absolute Auto 1.94 K/mm3 (0.9-3.2); Lymphocytes Percent Auto 25.9 % (18.3-44.2); Mean Corpuscular HGB Conc 36.2 g/dl (32-36); Mean Corpuscular Hemoglobin 34.1 pg (26-34); Mean Corpuscular Volume 94.3 fl (80-100); Mean Platelet Volume 10.3 fl (7.4-10.4); Monocytes Absolute Auto 0.6 K/mm3 (0.1-0.6); Monocytes Percent Auto 8.3 % (2.6-8.5); Neutrophils Absolute Auto 4.8 K/mm3 (1.3-6.7); Neutrophils Percent Auto 63.7 % (45.5-73.1); Nucleated Red Blood Cells Perc 0.3 % (0.0-0.2); Platelet Count Result 144 k/mm3 (150-375); Red Blood Count 3.69 M/mm3 (4.6-6.20); Red Cell Distribution Width 15.9 % (11.5-14.5); White Blood Count 7.5 K/mm3 (4.5-10.0)
[2022-11-09 16:17] LABS: Alanine Aminotransferase 18 U/L (6-50); Albumin Level 3.6 g/dL (3.5-5.1); Alkaline Phosphatase 138 U/L (38-126); Anion Gap 14 mmol/L (8-16); Aspartate Amino Transferase 67 U/L (17-59); Bilirubin,Total 0.8 mg/dL (0.2-1.3); Blood Urea Nitrogen 25 mg/dL (9-20); Calcium 7.8 mg/dL (8.4-10.2); Carbon Dioxide 36 mmol/L (22-30); Chloride 70 mmol/L (98-107); Estimated CRCL calculation 72 ml/min; Estimated Glomerular Filt Rate > 60; Glucose 142 mg/dL (65-110); Potassium 2.3 mmol/L (3.4-5.0); Sodium 120 mmol/L (137-145)
[2022-11-09 16:38] LABS: NT Pro B Type Natriuretic Pept 211 pg/mL (5-100); Troponin I < 0.012 ng/mL (0.000-0.034)
[2022-11-09 16:46] LABS: Ethanol 11 mg/dL (<10)
--- NOTE | 2022-11-09 16:53 | PC.NURSE ---
heart healthy diet dinner tray ordered
--- NOTE | 2022-11-09 16:59 | ED.GENADULT ---
HPI - General Adult General Chief complaint: Syncope Stated complaint: syncopal event Time Seen by Provider: 11/09/22 15:49 History of Present Illness HPI narrative: 57-year-old male with past medical history of alcohol abuse presents to the ER after rapid response was called. Patient had what sounds like a seizure while in our parking lot. Upon last initial assessment of patient he seems postictal. Numhqab-[id number] at bedside states that patient began to have generalized convulsions and then was unresponsive for a short time afterwards. Patient has never had a seizure before. Patient has initially told me that his last drink of alcohol was 6 months prior to arrival. After family has stepped out he has inform me he had a few shots of fireball yesterday afternoon. Related Data Home Medications Medication Instructions Recorded Confirmed ferrous sulfate 325 mg (65 mg 324 mg PO BID 07/27/21 09/12/21 iron) tablet levothyroxine 25 mcg tablet 25 mcg PO DAILY 07/27/21 09/12/21 megestrol 400 mg/10 mL (10 mL) 400 mg PO BID 08/26/21 09/12/21 oral suspension pantoprazole 40 mg granules 40 mg PO BID 08/26/21 09/12/21 delayed-release for susp in packet (Protonix) bisacodyl 10 mg rectal suppository 10 mg RECTAL DAILY PRN Constipation 09/12/21 09/12/21 magnesium citrate 296 ml PO DAILY PRN Constipation 09/12/21 09/12/21 sodium phosphates 19 gram-7 118 ml RECTAL AC 09/12/21 09/12/21 gram/118 mL enema (Fleet Enema) Allergies Allergy/AdvReac Type Severity Reaction Status Date / Time amoxicillin Allergy Rash Verified 09/14/21 09:42 Review of Systems Review of Systems: CONSTITUTIONAL: Denies fever, chills, or sweats. EYES: Denies visual changes, redness, or discharge. ENT: Denies rhinorrhea, congestion, sore throat, or otalgia. CARDIOVASCULAR: Denies chest pain, palpitations, or edema. RESPIRATORY: Denies cough or dyspnea. GASTROINTESTINAL: Denies abdominal pain, nausea, vomiting, or diarrhea. GENITOURINARY: Denies dysuria or hematuria. SKIN: Denies rash or itching. MUSCULOSKELETAL: Denies back pain, joint pain, or myalgia. NEUROLOGIC: Denies headache, numbness, or weakness. PSYCHIATRIC: Denies anxiety or depression. [facility] Past Medical History Medical History Alcohol dependence Cerebrovascular accident With left-sided residual weakness. Chronic anemia Chronic hyponatremia Congestive heart failure Echocardiogram on 07/17/2021 showed normal LV chamber dimension and function with an estimated EF of 65 to 70% and grade 1 diastolic dysfunction with mild pulmonary hypertension estimated pulmonary arterial systolic pressure of 37 mmHg. COVID (08/2021) Gastroesophageal reflux disease Hypertension Hypothyroidism Protein calorie malnutrition Tobacco dependence Surgical History Surgical History History of excision of testicular mass With benign histology. Family History Family History Father Chronic obstructive pulmonary disease Congestive heart failure Hypertension Mother Abdominal aortic aneurysm rupture Daughter Type 1 diabetes mellitus Social History Social History Social History: Surrogate decision maker: Bere Rushjewelshoda, sister. Code status: Full code. Smoking packs per day: 1 Smoking cigarettes per day: 20.0 Years smoked: 35 Smoking pack-years: 35.00 Smoking status: Smoker, status unknown Tobacco type: cigarettes Alcohol intake: former Drinks per week: 4 Alcohol use details: 3 to 4 beers per week. Substance use: unknown Substance use type: does not use Additional living arrangements comments: Resident at [facility]. Additional occupation/education comments: Unemployed. Spiritual care concerns: No Exam Narrative:
[2022-11-09 17:02] LABS: INR 1.1; Prothrombin Time 13.7 Seconds (11.1-14.7)
[2022-11-09 17:04] LABS: Partial Thromboplastin Time 24.5 SECONDS (22.3-36.8)
[2022-11-09] MEDS: MAGNESIUM SULF 2 GM/WATER 50ML 2 GM/50 ML BAG IVPB (17:24)
[2022-11-09] MEDS: POTASSIUM CHLORIDE INJ 40 MEQ in SODIUM CHLORIDE 0.9% IV 500 ML 130 MEQ IVPB (17:25)
[2022-11-09] MEDS: LORazepam INJ (*CRX) 2 MG/ML VIAL 1 MG IV PUSH (17:28)
[2022-11-09 17:33] LABS: Influenza A QL RT-PCR Negative (Negative); Influenza B QL RT-PCR Negative (Negative); SARS-CoV-2 RNA PCR Negative
--- NOTE | 2022-11-09 17:34 | PM.IMHP ---
H&P: HPI History of Present Illness Date/Time: 11/09/22 17:34 Chief Complaint: Syncope Narrative: This is a 57-year-old male patient who does have a history of alcohol abuse as well as nicotine abuse. The patient was going through the drive-through with his [id number] and he was in the passenger seat when he had a seizure according to his [id number]-[id number]-eyh. According to the [id number]-[id number] the patient had generalized convulsions and became unresponsive for short period of time afterwards. Patient has not had any seizures before. The patient had been binge drinking with fire balls. The patient had quit drinking for while and then started drinking fireball as yesterday. Patient's H&H was 12.6 and 34.8 today and previously was 9.4 and 29.4. Platelets 144. His sodium was 120. Potassium 2.3. The patient stated he is chronically loan his sodium and has seen Nephrology in the past. Troponins are nonreactive x2. Alkaline phosphatase 138. AST 67. The patient was negative for influenza A/B and covid. Chest x-ray was read as no acute cardiopulmonary abnormality. Head CT read is areas of prior infarction without acute intracranial abnormality. Age-related findings. The patient was started on IV potassium and magnesium and was given Ativan in the emergency room. The art supervisor was notified and agreed to consult on the patient and ICU. The patient was placed in ICU on observation status on the date of service of 11/09/2022. Review of Systems Review of Systems: See HPI All systems reviewed & are unremarkable except as noted in HPI and below Constitutional: Constitutional: Reports as per HPI and Reports no additional constitutional complaints Eyes: Eyes: Reports as per HPI and Reports no additional eye complaints ENT: Reports system reviewed and no additional complaints, except as documented and Reports Normal hearing present Cardiovascular: Cardiovascular: Reports no additional cardiovascular complaints Respiratory: Respiratory: Reports no additional respiratory complaints and Reports no additional respiratory complaints Gastrointestinal: Gastrointestinal: Reports as per HPI and Reports no additional gastrointestinal complaints Musculoskeletal: Musculoskeletal: Reports no additional musculoskeletal complaints Integumentary/Breasts: Skin/Breast: Reports system reviewed and no additional complaints, except as docu and Reports as per HPI Neurologic: Reports system reviewed and no additional complaints, except as documented, Reports as per HPI and Reports Normal hearing present Psychiatric: Psychiatric: Reports no additional psychiatric complaints and Reports as per HPI Endocrine: Endocrine: Reports no additional endocrine complaints Hematologic/Lymphatic: Hematologic/Lymphatic: Reports no additional hematologic/lymphatic complaints Allergic/Immunologic: Allergic/Immunologic: Reports no additional allergic/immunologic complaints [facility] Past Medical History Medical History (Updated 11/09/22 @ 21:33 by Hannah Rogers NP) Acute GI bleeding Acute ischemic stroke Adult failure to thrive Alcohol dependence Cerebrovascular accident With left-sided residual weakness. Chronic anemia Chronic hyponatremia Congestive heart failure Echocardiogram on 07/17/2021 showed normal LV chamber dimension and function with an estimated EF of 65 to 70% and grade 1 diastolic dysfunction with mild pulmonary hypertension estimated pulmonary arterial systolic pressure of 37 mmHg. COVID (08/2021) DVT prophylaxis Gastroesophageal reflux disease Generalized weakness HCAP (healthcare-associated pneumonia) Hypertension Hypokalemia Hypothyroidism Orthostatic hypotension Pneumonia Protein calorie malnutrition Rectal bleeding Sepsis Stroke Tobacco dependence Unwitnessed fall Urinary tract infection UTI (urinary tract infection) Surgical History Surgical History History of excision of testicular
[2022-11-09 17:53] LABS: Free T4 Free Thyroxine 1.34 ng/mL (0.78-2.19)
[2022-11-09] MEDS: SODIUM CHLORIDE 3% 200 ML 30 ML IV CONT (18:10)
--- NOTE | 2022-11-09 18:49 | ADMGEN ---
This patient, Simon Barraza Sr., was admitted to Intensive Care Unit-4 at 1845. Patient/family oriented to hospital policies and general routines including ID bracelet, bed and alarms, visiting hours, pain management, procedures, bathroom and other care routines, personal items, smoking policy, room service/diet, and visiting hours. Information on how to activate the Rapid Response Team has been discussed. Patient/Family are encouraged to report perceived risks to care and to ask questions if they do not understand what they are told or what they should do.
--- NOTE | 2022-11-09 18:55 | ECG_ITS ---
Measurements Intervals [place] Rate: 76 P: 79 FL: 160 QRS: 266 QRSD: 178 T: 63 QT: 483 QTc: 546 Interpretive Statements SINUS RHYTHM MARKED RIGHT AXIS DEVIATION [QRS AXIS > 100] RIGHT BUNDLE BRANCH BLOCK [120+ ms QRS DURATION, UPRIGHT V1, 40+ ms S IN I/aVL/V4/V5/V6] ST DEVIATION AND MARKED T-WAVE ABNORMALITY, CONSIDER ANTERIOR ISCHEMIA [-0.5+ mV T WAVE IN V3/V4] CANNOT RULE OUT OLD INFERIOR [place] COMPARED TO ECG 11/09/2022 15:47:48 NO SIGNIFICANT CHANGES Electronically Signed On 11-10-2022 8:39:29 ASSISTANT CLINICAL DIRECTOR by Miriam Mas M.D.
[2022-11-09] MEDS: chlordiazePOXIDE (*CRX) 25 MG CAPSULE 50 MG PO ×2 (18:59→23:17)
[2022-11-09 19:30] LABS: Magnesium 1.9 mg/dL (1.6-2.3)
[2022-11-09] MEDS: NICOTINE (*PBKC) 21 MG PATCH 1 PATCH TRANSDERM (19:47)
[2022-11-09] MEDS: THIAMINE HCL INJ 100 MG, FOLIC ACID INJ 1 MG, MULTIVITAMINS-12 INJ VIAL 1 5 ML, MULTIVI... 125 MG IV CONT (19:47)
[2022-11-09 20:01] LABS: Troponin I 0.016 ng/mL (0.000-0.034)
[2022-11-09] MEDS: GABAPENTIN 100 MG CAPSULE PO (23:13)
[2022-11-09] MEDS: ATORVASTATIN 20 MG TABLET PO (23:14)
[2022-11-09] MEDS: PANTOPRAZOLE 40 MG TABLET PO (23:14)
[2022-11-09 23:27] LABS: Blood Urea Nitrogen 28 mg/dL (9-20); Calcium 7.1 mg/dL (8.4-10.2); Carbon Dioxide > 40 mmol/L (22-30); Chloride 78 mmol/L (98-107); Estimated CRCL calculation 105 ml/min; Estimated Glomerular Filt Rate > 60; Glucose 118 mg/dL (65-110); Potassium 2.4 mmol/L (3.4-5.0); Sodium 122 mmol/L (137-145)
[2022-11-09 23:57] LABS: Add Urine Microscopic? YES; Appearance Urine Clear (Clear); Bilirubin Urine Negative (Negative); Blood Urine Trace-Intact (Negative); Color Urine Light Yellow (Yellow); Glucose Urine UA Negative (Negative); Ketones Urine Negative (Negative); Leukocyte Esterase Ur 1+ LEU/UL (Negative); Nitrate Urine Negative (Negative); Protein Urine Negative (Negative); Specific Grav Ur 1.015 (1.001-1.035); Urobilinogen Urine 0.2 mg/dL (<2.0); pH Urine 5.5 (5.0-9.0)
[2022-11-10] VITALS (39 sets, daily range): BP systolic 65–132; BP diastolic 47–94; PULSE 65–137; RESP 16–31; TEMP 36.5–36.8; O2SAT 87–100
[2022-11-10 00:05] LABS: Sodium Urine Random 6 meq/L
[2022-11-10 00:08] LABS: Bacteria Urine 4+ /hpf; Mucus Urine Few /lpf; RBC Urine 0-2 /hpf (0-2); Squamous Epithelial Cell Urine Rare /hpf (Few); WBC Urine 21-30 /hpf
[2022-11-10 00:13] LABS: Barbiturate Screen Urine Negative (Negative); Benzodiazepines Screen Urine Negative (Negative)
[2022-11-10 00:15] LABS: Amphetamine Screen Urine Negative (Negative); Cannabinoid Screen Urine Negative (Negative); Cocaine Screen Urine Negative (Negative); Opiate Screen Urine Negative (Negative); Phencyclidine Screen Urine Negative (Negative)
[2022-11-10 00:21] LABS: Methadone Screen Urine Negative (Negative)
[2022-11-10 00:45] LABS: Eosinophil Urine Rare % (None Seen)
[2022-11-10] MEDS: POTASSIUM CHLORIDE 20 MEQ TABLET 40 MEQ PO (00:47)
[2022-11-10] MEDS: POTASSIUM CHLORIDE INJ 40 MEQ in SODIUM CHLORIDE 0.9% IV 500 ML 130 MEQ IVPB ×2 (00:57→08:30)
[2022-11-10] MEDS: SODIUM CHLORIDE 3% 200 ML 30 ML IV CONT (01:52)
[2022-11-10 04:21] LABS: Basophils Absolute Auto 0.1 K/mm3 (0.0-0.1); Basophils Percent Auto 0.8 % (0.2-1.2); Eosinophils Absolute Auto 0.1 K/mm3 (0-0.3); Eosinophils Percent Auto 0.7 % (0-4.4); Hematocrit 31.8 % (42.0-52.0); Hemoglobin 11.6 g/dL (14.0-18.0); Immature Granulocyte Absolute 0.09 K/mm3 (0.00-0.031); Immature Granulocyte Percent A 1.1 % (0-0.5); Lymphocytes Absolute Auto 2.36 K/mm3 (0.9-3.2); Lymphocytes Percent Auto 27.5 % (18.3-44.2); Mean Corpuscular HGB Conc 36.5 g/dl (32-36); Mean Corpuscular Hemoglobin 34.5 pg (26-34); Mean Corpuscular Volume 94.6 fl (80-100); Mean Platelet Volume 9.4 fl (7.4-10.4); Monocytes Absolute Auto 0.6 K/mm3 (0.1-0.6); Monocytes Percent Auto 7.1 % (2.6-8.5); Neutrophils Absolute Auto 5.4 K/mm3 (1.3-6.7); Neutrophils Percent Auto 62.8 % (45.5-73.1); Nucleated Red Blood Cells Perc 0.2 % (0.0-0.2); Platelet Count Result 120 k/mm3 (150-375); Red Blood Count 3.36 M/mm3 (4.6-6.20); Red Cell Distribution Width 16.2 % (11.5-14.5); White Blood Count 8.6 K/mm3 (4.5-10.0)
[2022-11-10 04:37] LABS: Lactic Acid Reflex 1.3 mmol/L (0.7-2.0)
[2022-11-10 04:45] LABS: Alanine Aminotransferase 19 U/L (6-50); Albumin Level 3.1 g/dL (3.5-5.1); Alkaline Phosphatase 152 U/L (38-126); Anion Gap 2 mmol/L (8-16); Aspartate Amino Transferase 81 U/L (17-59); Bilirubin,Total 1.9 mg/dL (0.2-1.3); Blood Urea Nitrogen 23 mg/dL (9-20); Calcium 7.5 mg/dL (8.4-10.2); Carbon Dioxide 38 mmol/L (22-30); Chloride 87 mmol/L (98-107); Estimated CRCL calculation 91 ml/min; Estimated Glomerular Filt Rate > 60; Glucose 116 mg/dL (65-110); Magnesium 2.4 mg/dL (1.6-2.3); Potassium 2.8 mmol/L (3.4-5.0); Sodium 127 mmol/L (137-145)
[2022-11-10] MEDS: chlordiazePOXIDE (*CRX) 25 MG CAPSULE 50 MG PO ×4 (05:39→23:02)
[2022-11-10] MEDS: LEVOTHYROXINE SODIUM 25 MCG TABLET PO (05:40)
--- NOTE | 2022-11-10 09:40 | WPDCNINT ---
Assessment and Plan Assessment and plan (1) Seizure: Code(s): R56.9 - Unspecified convulsions Status: Acute Assessment and Plan: Patient and his brother in law were in and drive through with kyzawtt-sq-[id number] noted that the patient had some tonic clonic convulsions and brought him to the ER on 11/09 -patient has not had any seizure activity since then -he was found to have a sodium level of 120 and was given 3% saline ER -continue seizure precautions -could be related to alcohol intoxication and over withdrawal -continue to monitor (2) Hyponatremia: Code(s): E87.1 - Hypo-osmolality and hyponatremia Status: Acute Assessment and Plan: Hyponatremia, sodium levels of 120, patient has a history of chronic hyponatremia and has been treated in the hospital and the past, -nephrology has been consulted, will check another sodium level and go from there. Likely will need salt tablets -this could be related to alcoholism too (3) Alcohol dependence: Code(s): F10.20 - Alcohol dependence, uncomplicated Status: Acute Assessment and Plan: Continue to monitor for withdrawals -continue folic acid and thiamine -continue Librium -CIWA protocol, p.r.n. Ativan Counseled patient on cessation of alcohol and possibly getting some rehab (4) Tobacco dependence: Code(s): F17.200 - Nicotine dependence, unspecified, uncomplicated Status: Acute Assessment and Plan: Consult patient smoking cessation (5) Hypothyroidism: Code(s): E03.9 - Hypothyroidism, unspecified Status: Acute Assessment and Plan: Continue levothyroxine (6) Hypokalemia: Code(s): E87.6 - Hypokalemia Status: Acute Assessment and Plan: Potassium has been replaced (7) UTI (urinary tract infection): Code(s): N39.0 - Urinary tract infection, site not specified Status: Acute Assessment and Plan: UA was reflective of UTI, urine cultures are pending -history of resistant E coli in the past, -started on cefepime Plan DVT prophylaxis: SCDs, no chemoprophylaxis due to thrombocytopenia Stress ulcer prophylaxis: Protonix p.o. q.12 hours which is home medication Nutrition: Heart healthy diet Code Status: Full code Critical Care Time Spent: 44 minutes Discussed with Nephrology Patient can be downgraded to IMU status Due to a high probability of clinically significant, life threatening deterioration, the patient required my highest level of preparedness to intervene emergently and I personally spent this critical care time directly and personally managing the patient. This critical care time included obtaining a history; examining the patient; pulse oximetry; ordering and review of studies; arranging urgent treatment with development of a management plan; evaluation of patient's response to treatment; frequent reassessment; and discussions with other providers. It was exclusive of separately billable procedures and treating other patients and teaching time. Please see Assessment and Plan section and the rest of the note for further information on patient assessment and treatment This dictation may have been done utilizing a voice recognition system. Attempts have been made to correct errors. However, there may be uncorrected grammatical, spelling, and recognitions errors present. Toppiece Cutter Consult Note Consult date: 11/10/22 Reason for consult: Seizures, hyponatremia, alcohol dependence/abuse HPI: Simon Angel Barraza Sr. is a 57 year old male with significant past medical history of alcohol dependence, CVA, chronic anemia, chronic hyponatremia, congestive heart failure with preserved EF and grade 1 diastolic dysfunction, COVID-19 in August 2021, GERD, essential hypertension hypothyroidism, protein calorie malnutrition and tobacco dependence presented the ED on 11/09 possible seizure-like activity while he and his brother in law were going to a drive-through and he was
--- NOTE | 2022-11-10 09:41 | P.CONNP_ITS ---
Assessment and Plan Assessment and plan (1) Hyponatremia: Code(s): E87.1 - Hypo-osmolality and hyponatremia Status: Chronic Assessment and Plan: * acute on chronic * sodium 132mmol/L about 2 months ago * chronicity due to: * tobacco use/lung disease * possible PPI use * on/off alcohol intake * nutrition issues * previous CVAs(?) * acute insult from: * binge alcohol intake * pre-renal factors * poor oral intake * s/p 3%% saline due to #2 * goal of therapy is rate of change in sodium of around 6 - 8mmol/L in 24 hours * follow trend of repeat sodium levels (2) Seizure: Code(s): R56.9 - Unspecified convulsions Status: Acute Assessment and Plan: * suspected by tonic-clonic movements prior to arrival * no further seizure activity since admission * suspected to be potentiated by hyponatremia; however could be related to alcohol use (intoxication versus withdrawal) * s/p 3% saline * continue supportive therapy (3) Hypokalemia: Code(s): E87.6 - Hypokalemia Status: Acute Assessment and Plan: * possible related to poor oral intake worsened by hypomagnesemia * K+ and magnesium replaced * follow repeat labs (4) UTI (urinary tract infection): Code(s): N39.0 - Urinary tract infection, site not specified Status: Acute Assessment and Plan: * urinalysis highly suggestive * follow culture results * on antibiotics (5) Alcohol dependence: Code(s): F10.20 - Alcohol dependence, uncomplicated Status: Acute Assessment and Plan: * on thiamine and folate * monitor for withdrawal symptoms Will continue to follow. History of Present Illness Reason for Consult Consult date: 11/10/22 Reason for consult: hyponatremia Chief Complaint Chief complaint: Hyponatremia/Hypokalemia/Seizure/Alcohol Withdrawa History of Present Illness Narrative: The patient is a 57-year-old male with a past medical history as outli carmine below who presented to [facility] Emergency room for further evaluation of possible seizure. The patient and his htrfdfl-or-lyr were apparently in a drive-thru and the patient was seated in the passenger seat. His qjzejnn-bx-qvn on noted generalized convulsions and a short period of unresponsiveness after this event. Given the aforementioned suspected seizure, he was transferred to the emergency room for further assessment. He apparently has never had any issues or problems with seizures in the past that the patient or his family are aware of. Workup and evaluation emergency room demonstrated routine blood tests with significant findings with regard to a mildly elevated white blood cell count, relative thrombocytopenia, and a sodium of 120 in association with a potassium of 2.3. Troponins were negative x2 and his influenza a/B as well as COVID-19 testing were negative. A chest x-ray demonstrated no acute cardiopulmonary abnormalities and a CT scan of the brain showed old prior infarction without acute intracranial abnormalities along with age-related findings. His urinalysis was highly suggestive of a urinary tract infection. Given the a for mentioned suspected seizure activity in association with his hyponatremia, he was given 3% saline by the ER physician and then started on IV normal saline with subsequent transferred to the ICU for further evaluation and therapy. Since his admission, his sodium level has improved up to 127 millimoles per L and his mental status appears to be back to baseline. No further seizure activity has oc
--- NOTE | 2022-11-10 09:41 | PM.CNNEP ---
Assessment and Plan Assessment and plan (1) Hyponatremia: Code(s): E87.1 - Hypo-osmolality and hyponatremia Status: Chronic Assessment and Plan: acute on chronic sodium 132mmol/L about 2 months ago chronicity due to: tobacco use/lung disease possible PPI use on/off alcohol intake nutrition issues previous CVAs(?) acute insult from: binge alcohol intake pre-renal factors poor oral intake s/p 3%% saline due to #2 goal of therapy is rate of change in sodium of around 6 - 8mmol/L in 24 hours follow trend of repeat sodium levels (2) Seizure: Code(s): R56.9 - Unspecified convulsions Status: Acute Assessment and Plan: suspected by tonic-clonic movements prior to arrival no further seizure activity since admission suspected to be potentiated by hyponatremia; however could be related to alcohol use (intoxication versus withdrawal) s/p 3% saline continue supportive therapy (3) Hypokalemia: Code(s): E87.6 - Hypokalemia Status: Acute Assessment and Plan: possible related to poor oral intake worsened by hypomagnesemia K+ and magnesium replaced follow repeat labs (4) UTI (urinary tract infection): Code(s): N39.0 - Urinary tract infection, site not specified Status: Acute Assessment and Plan: urinalysis highly suggestive follow culture results on antibiotics (5) Alcohol dependence: Code(s): F10.20 - Alcohol dependence, uncomplicated Status: Acute Assessment and Plan: on thiamine and folate monitor for withdrawal symptoms Will continue to follow. History of Present Illness Reason for Consult Consult date: 11/10/22 Reason for consult: hyponatremia Chief Complaint Chief complaint: Hyponatremia/Hypokalemia/Seizure/Alcohol Withdrawa History of Present Illness Narrative: The patient is a 57-year-old male with a past medical history as outlined below who presented to [facility] Emergency room for further evaluation of possible seizure. The patient and his ydpdvcc-wu-lav were apparently in a drive-thru and the patient was seated in the passenger seat. His rpxperv-fl-gzr on noted generalized convulsions and a short period of unresponsiveness after this event. Given the aforementioned suspected seizure, he was transferred to the emergency room for further assessment. He apparently has never had any issues or problems with seizures in the past that the patient or his family are aware of. Workup and evaluation emergency room demonstrated routine blood tests with significant findings with regard to a mildly elevated white blood cell count, relative thrombocytopenia, and a sodium of 120 in association with a potassium of 2.3. Troponins were negative x2 and his influenza a/B as well as COVID-19 testing were negative. A chest x-ray demonstrated no acute cardiopulmonary abnormalities and a CT scan of the brain showed old prior infarction without acute intracranial abnormalities along with age-related findings. His urinalysis was highly suggestive of a urinary tract infection. Given the a for mentioned suspected seizure activity in association with his hyponatremia, he was given 3% saline by the ER physician and then started on IV normal saline with subsequent transferred to the ICU for further evaluation and therapy. Since his admission, his sodium level has improved up to 127 millimoles per L and his mental status appears to be back to baseline. No further seizure activity has occurred since his admission. Renal consultation was requested due to his acute on chronic hyponatremia. From review of his records, the patient has had issues with hyponatremia that they back as far as 2020 if not earlier. He was hospitalized here at [facility] in February of 2021 with acute on chronic hyponatremia with a sodium level of 116 and with conservative therapy with regard to IV fluids, salt tablets, fluid
[2022-11-10] MEDS: ACETAMINOPHEN 325 MG TABLET 650 MG PO (09:56)
[2022-11-10] MEDS: POTASSIUM CHLORIDE 20 MEQ TABLET.ER PO (09:57)
[2022-11-10] MEDS: CYANOCOBALAMIN 1,000 MCG TABLET 1000 MCG PO (09:57)
[2022-11-10] MEDS: POTASSIUM CHLORIDE 20 MEQ TABLET.ER 40 MEQ PO ×2 (09:57→17:38)
[2022-11-10] MEDS: GABAPENTIN 100 MG CAPSULE PO ×3 (09:58→17:39)
[2022-11-10] MEDS: FERROUS SULFATE 324 MG TABLET PO ×2 (09:58→17:39)
[2022-11-10] MEDS: FOLIC ACID 1 MG TABLET PO (09:58)
[2022-11-10] MEDS: NICOTINE (*PBKC) 21 MG PATCH 1 PATCH TRANSDERM (09:58)
[2022-11-10] MEDS: DOCUSATE SODIUM 100 MG CAPSULE PO (09:58)
[2022-11-10] MEDS: CLOPIDOGREL BISULFATE 75 MG TABLET PO (09:58)
[2022-11-10] MEDS: PANTOPRAZOLE 40 MG TABLET PO ×2 (09:59→20:55)
[2022-11-10] MEDS: MEGESTROL ACETATE (*CHEMO) ORAL SUSP 40 MG/ML SYR 400 MG PO ×2 (10:01→17:39)
--- NOTE | 2022-11-10 11:05 | PM.IMPN ---
Progress Note: A&P Assessment and Plan (1) Seizure: Code(s): R56.9 - Unspecified convulsions Status: Acute Assessment and Plan: Patient and his brother in law were in and drive through with zuoqysg-od-kwy noted that the patient had some tonic clonic convulsions and brought him to the ER on 11/09 -patient has not had any seizure activity since then -he was found to have a sodium level of 120 and was given 3% saline ER -continue seizure precautions -could be related to alcohol intoxication and over withdrawal -continue to monitor (2) Hyponatremia: Code(s): E87.1 - Hypo-osmolality and hyponatremia Status: Acute Assessment and Plan: Hyponatremia, sodium levels of 120, patient has a history of chronic hyponatremia and has been treated in the hospital and the past, -nephrology has been consulted, will check another sodium level and go from there. Likely will need salt tablets -this (3) Alcohol dependence: Code(s): F10.20 - Alcohol dependence, uncomplicated Status: Acute (4) Tobacco dependence: Code(s): F17.200 - Nicotine dependence, unspecified, uncomplicated Status: Acute (5) Hypothyroidism: Code(s): E03.9 - Hypothyroidism, unspecified Status: Acute (6) Hypokalemia: Code(s): E87.6 - Hypokalemia Status: Acute (7) UTI (urinary tract infection): Code(s): N39.0 - Urinary tract infection, site not specified Status: Acute Subjective Date/time seen: 11/10/22 11:05 Patient was seen during the morning rounds today. Patient did have any seizure activity during his stay in the hospital. No shortness of breath or chest pain. No abdominal pain, nausea, no vomiting. Mood stable. Review of Systems Review of Systems: All systems reviewed & are unremarkable except as noted in HPI and below Constitutional: Constitutional: Reports as per HPI and Reports no additional constitutional complaints Eyes: Eyes: Reports as per HPI and Reports no additional eye complaints ENT: Reports system reviewed and no additional complaints, except as documented and Reports Normal hearing present Cardiovascular: Cardiovascular: Reports no additional cardiovascular complaints Respiratory: Respiratory: Reports no additional respiratory complaints and Reports no additional respiratory complaints Gastrointestinal: Gastrointestinal: Reports as per HPI and Reports no additional gastrointestinal complaints Musculoskeletal: Musculoskeletal: Reports no additional musculoskeletal complaints Integumentary/Breasts: Skin/Breast: Reports system reviewed and no additional complaints, except as docu and Reports as per HPI Neurologic: Reports system reviewed and no additional complaints, except as documented, Reports as per HPI and Reports Normal hearing present Psychiatric: Psychiatric: Reports no additional psychiatric complaints and Reports as per HPI Endocrine: Endocrine: Reports no additional endocrine complaints Hematologic/Lymphatic: Hematologic/Lymphatic: Reports no additional hematologic/lymphatic complaints Allergic/Immunologic: Allergic/Immunologic: Reports no additional allergic/immunologic complaints Exam Narrative: General: Pleasant gentleman in no acute distress HEENT:? Pupils are equal and reactive, sclera is clear Neck:? Supple Respiratory:? Coarse breath sounds, likely transmitted breath sounds from upper airway, adequate air entry, no wheezing Cardiac:? S1-S2 is normal, no murmurs Abdomen:? Soft, nontender, nondistended, normoactive bowel sounds Extremities:? No edema, palpable pedal pulses Neuro:? Patient is awake, alert, oriented, nonfocal answers to questions appropriately and follows simple commands Skin:? Dry and flaky skin on lower extremities Psych:? Normal mentation and affect Const: General: cooperative, healthy appearing, comfortable, no acute distress, well developed, awake, Physically active, average body habitus and well nourished Nutr
[2022-11-10 11:10] LABS: Anion Gap 2 mmol/L (8-16); Blood Urea Nitrogen 20 mg/dL (9-20); Calcium 7.3 mg/dL (8.4-10.2); Carbon Dioxide 35 mmol/L (22-30); Chloride 95 mmol/L (98-107); Estimated CRCL calculation 91 ml/min; Estimated Glomerular Filt Rate > 60; Glucose 173 mg/dL (65-110); Magnesium 2.4 mg/dL (1.6-2.3); Potassium 3.3 mmol/L (3.4-5.0); Sodium 132 mmol/L (137-145)
[2022-11-10] MEDS: FUROSEMIDE INJ 40 MG/4 ML VIAL 20 MG IV PUSH ×2 (12:21→12:41)
[2022-11-10 13:06] LABS: Creatinine Urine 106.5 mg/dL; Total Protein Urine Random 20 mg/dL; Ur Ttl Prot Creatinine Ratio 0.19 mg/mg (0-0.20); Urea Random Urine 728 MG/DL
[2022-11-10 13:08] LABS: Sodium Urine Random 35 meq/L
[2022-11-10] MEDS: DEXTROSE 5% IN WATER 500 ML 125 ML IV CONT (13:48)
[2022-11-10] MEDS: POTASSIUM CHLORIDE 20 MEQ PACKET (FOR LIQUID) 40 MEQ PO (13:48)
[2022-11-10] MEDS: METOPROLOL TARTRATE INJ 5 MG/5 ML VIAL IV PUSH (13:49)
[2022-11-10] MEDS: THIAMINE HCL 200 MG/2 ML VIAL 100 MG IV PUSH (15:00)
[2022-11-10 17:59] LABS: Glucose Point of Care 248 mg/dl (65-105)
[2022-11-10 19:09] LABS: Sodium 127 mmol/L (137-145)
--- NOTE | 2022-11-10 19:32 | PC.NURSE ---
[address] Dr. Ortega, no new orders at this time. CMP already ordered for 11/11/22.
[2022-11-10] MEDS: ATORVASTATIN 20 MG TABLET PO (20:10)
[2022-11-10 23:37] LABS: Glucose Point of Care 200 mg/dl (65-105)
[2022-11-11] VITALS (40 sets, daily range): BP systolic 83–116; BP diastolic 70–101; PULSE 93–126; RESP 20–47; TEMP 36.2–36.7; O2SAT 97–100
[2022-11-11 03:45] LABS: Basophils Absolute Auto 0.1 K/mm3 (0.0-0.1); Basophils Percent Auto 0.9 % (0.2-1.2); Eosinophils Percent Auto 0.2 % (0-4.4); Hematocrit 34.1 % (42.0-52.0); Hemoglobin 11.5 g/dL (14.0-18.0); Immature Granulocyte Absolute 0.08 K/mm3 (0.00-0.031); Immature Granulocyte Percent A 0.7 % (0-0.5); Lymphocytes Percent Auto 22.1 % (18.3-44.2); Mean Corpuscular HGB Conc 33.7 g/dl (32-36); Mean Corpuscular Hemoglobin 34.3 pg (26-34); Mean Corpuscular Volume 101.8 fl (80-100); Mean Platelet Volume 10.6 fl (7.4-10.4); Monocytes Absolute Auto 0.6 K/mm3 (0.1-0.6); Monocytes Percent Auto 5.3 % (2.6-8.5); Neutrophils Absolute Auto 7.7 K/mm3 (1.3-6.7); Neutrophils Percent Auto 70.8 % (45.5-73.1); Nucleated Red Blood Cells Absolute Auto 0.1 K/mm3 (0.0-0.012); Nucleated Red Blood Cells Perc 0.5 % (0.0-0.2); Platelet Count Result 114 k/mm3 (150-375); Red Blood Count 3.35 M/mm3 (4.6-6.20); Red Cell Distribution Width 17.7 % (11.5-14.5); White Blood Count 10.9 K/mm3 (4.5-10.0)
[2022-11-11 03:51] LABS: Lactic Acid Reflex 3.1 mmol/L (0.7-2.0)
[2022-11-11 03:52] LABS: Alanine Aminotransferase 19 U/L (6-50); Albumin Level 3.4 g/dL (3.5-5.1); Alkaline Phosphatase 148 U/L (38-126); Anion Gap 6 mmol/L (8-16); Aspartate Amino Transferase 62 U/L (17-59); Bilirubin,Total 1.1 mg/dL (0.2-1.3); Blood Urea Nitrogen 20 mg/dL (9-20); Calcium 8.1 mg/dL (8.4-10.2); Carbon Dioxide 30 mmol/L (22-30); Chloride 94 mmol/L (98-107); Estimated CRCL calculation 91 ml/min; Estimated Glomerular Filt Rate > 60; Glucose 165 mg/dL (65-110); Magnesium 2.4 mg/dL (1.6-2.3); Phosphorus 1.9 mg/dL (2.5-4.5); Potassium 3.7 mmol/L (3.4-5.0); Sodium 130 mmol/L (137-145)
[2022-11-11 05:38] LABS: Alveolar/Arterial O2 Gradient 77.7 mmHg; Base Excess ABG 6.2 mEq/l (+/-2.0); Fractional Inspired Oxygen 28 %; HCO3 ABG 29.9 mEq/l (22.0-26.0); PO2 ABG 74.7 mmHg (80.0-100.0); PO2 FiO2 Ratio Arterial Blood 2.67 %; pH ABG 7.492 (7.350-7.450)
[2022-11-11 05:39] LABS: Device NASAL CANNULA; Modified Allen's Test Unable to perform; Site Drawn RIGHT BRACHIAL
[2022-11-11] MEDS: chlordiazePOXIDE (*CRX) 25 MG CAPSULE 50 MG PO ×3 (05:49→18:05)
[2022-11-11] MEDS: LEVOTHYROXINE SODIUM 25 MCG TABLET PO (05:49)
[2022-11-11] MEDS: LORazepam INJ (*CRX) 2 MG/ML VIAL IV PUSH ×2 (06:09→18:06)
[2022-11-11 06:39] LABS: Reflex Lactic Acid Yes or No Add Lactic
[2022-11-11 07:10] LABS: Lactic Acid 2.6 mmol/L (0.7-2.0)
--- NOTE | 2022-11-11 10:09 | PM.IMPN ---
Progress Note: A&P Assessment and Plan (1) Seizure: Code(s): R56.9 - Unspecified convulsions Status: Acute Assessment and Plan: Patient and his brother in law were in and drive through with bivspbo-bn-hxj noted that the patient had some tonic clonic convulsions and brought him to the ER on 11/09 -patient has not had any seizure activity since then -he was found to have a sodium level of 120 and was given 3% saline ER -continue seizure precautions -could be related to alcohol intoxication and over withdrawal -continue to monitor (2) Hyponatremia: Code(s): E87.1 - Hypo-osmolality and hyponatremia Status: Acute Assessment and Plan: Hyponatremia, sodium levels of 120, patient has a history of chronic hyponatremia and has been treated in the hospital and the past, -nephrology has been consulted, will check another sodium level and go from there. Likely will need salt tablets -this could be related to alcoholism too (3) Alcohol dependence: Code(s): F10.20 - Alcohol dependence, uncomplicated Status: Acute Assessment and Plan: Continue to monitor for withdrawals -continue folic acid and thiamine -continue Librium -CIWA protocol, p.r.n. Ativan Counseled patient on cessation of alcohol and possibly getting some rehab (4) Tobacco dependence: Code(s): F17.200 - Nicotine dependence, unspecified, uncomplicated Status: Acute Assessment and Plan: Consult patient smoking cessation (5) Hypothyroidism: Code(s): E03.9 - Hypothyroidism, unspecified Status: Acute Assessment and Plan: Continue levothyroxine (6) Hypokalemia: Code(s): E87.6 - Hypokalemia Status: Acute Assessment and Plan: Potassium has been replaced (7) UTI (urinary tract infection): Code(s): N39.0 - Urinary tract infection, site not specified Status: Acute Assessment and Plan: UA was reflective of UTI, urine cultures are pending -history of resistant E coli in the past, -started on cefepime Plan DVT prophylaxis: SCDs, no chemoprophylaxis due to thrombocytopenia Stress ulcer prophylaxis: Protonix p.o. q.12 hours which is home medication Nutrition: Heart healthy diet Code Status: Full code Critical Care Time Spent: 44 minutes Discussed with Nephrology Patient can be downgraded to IMU status Due to a high probability of clinically significant, life threatening deterioration, the patient required my highest level of preparedness to intervene emergently and I personally spent this critical care time directly and personally managing the patient. This critical care time included obtaining a history; examining the patient; pulse oximetry; ordering and review of studies; arranging urgent treatment with development of a management plan; evaluation of patient's response to treatment; frequent reassessment; and discussions with other providers. It was exclusive of separately billable procedures and treating other patients and teaching time. Please see Assessment and Plan section and the rest of the note for further information on patient assessment and treatment This dictation may have been done utilizing a voice recognition system. Attempts have been made to correct errors. However, there may be uncorrected grammatical, spelling, and recognitions errors present. Subjective Date/time seen: 11/11/22 10:09 Patient was seen during the morning rounds today. No new seizure episode. Patient is not in acute withdrawal. No shortness of breath or chest pain. No abdominal pain, nausea, no vomiting. Mood stable. Review of Systems Review of Systems: All systems reviewed & are unremarkable except as noted in HPI and below Constitutional: Constitutional: Reports as per HPI and Reports no additional constitutional complaints Eyes: Eyes: Reports as per HPI and Reports no additional eye complaints ENT: Reports system reviewed and no additional complaints,
[2022-11-11] MEDS: IPRATROPIUM BR 0.02% INH SOLN 0.5 MG/2.5 ML VIAL INHALATION (11:03)
--- NOTE | 2022-11-11 11:35 | PM.PNNEP ---
Progress Note: A&P Assessment and Plan (1) Hyponatremia: Code(s): E87.1 - Hypo-osmolality and hyponatremia Status: Chronic Assessment and Plan: acute on chronic sodium 132mmol/L about 2 months ago chronicity due to: tobacco use/lung disease possible PPI use on/off alcohol intake nutrition issues previous CVAs(?) acute insult from: binge alcohol intake pre-renal factors poor oral intake s/p 3%% saline due to #2 goal of therapy is rate of change in sodium of around 6 - 8mmol/L in 24 hours concern for overcorrection yesterday but sodium better s/p D5W IVFs follow trend of repeat sodium levels (2) Seizure: Code(s): R56.9 - Unspecified convulsions Status: Acute Assessment and Plan: suspected by tonic-clonic movements prior to arrival/admission no further seizure activity since admission suspected to be potentiated by hyponatremia; however could be related to alcohol use (intoxication versus withdrawal) as well s/p 3% saline x 1 on admission continue supportive therapy (3) Hypokalemia: Code(s): E87.6 - Hypokalemia Status: Acute Assessment and Plan: possible related to poor oral intake worsened by hypomagnesemia K+ and magnesium replaced follow repeat labs (4) UTI (urinary tract infection): Code(s): N39.0 - Urinary tract infection, site not specified Status: Acute Assessment and Plan: urine culture results with E.coli on antibiotics (5) Alcohol dependence: Code(s): F10.20 - Alcohol dependence, uncomplicated Status: Acute Assessment and Plan: on thiamine and folate monitor for withdrawal symptoms Will continue to follow. Subjective Date/time seen: 11/11/22 11:35 No new issues or complaints overnight or earlier this AM; was given D5W IVFs yesterday due to concerns for overcorrection -- responded appropriately; no further seizure activity to report; no other apparent concerns or problems to report at this time. Exam Narrative: General: WD/WN male in NAD Heart: normal S1 and S2; no rub Lungs: clear to auscultation Abdomen: soft, nontender, nondistended, positive bowel sounds Extremities: no cyanosis or clubbing; no edema Skin: warm and dry Objective Data Vital Signs Vital Signs: Vital Signs Temp Pulse Pulse Resp BP Pulse Ox O2 Del Method 11/11/22 11:13 112 H 28 H 11/11/22 11:02 119 H 24 H 11/11/22 10:00 112 H 11/11/22 08:00 116 H 11/11/22 08:00 120 H 98/87 L 11/11/22 08:00 97.9 F 119 H 28 H 98/87 L 100 11/11/22 08:00 125 H 29 H 100 Nasal Cannula 11/11/22 06:00 125 H 11/11/22 04:00 110 H 29 H 100 Nasal Cannula 11/11/22 04:33 120 H 99/76 L 11/11/22 04:00 97.6 F 120 H 28 H 99/76 L 11/11/22 04:00 120 H 11/11/22 02:00 111 H 11/11/22 00:00 98.1 F 111 H 20 105/75 100 11/11/22 00:00 111 H 11/11/22 00:00 110 H 29 H 100 Nasal Cannula 11/11/22 00:00 110 H 11/10/22 22:00 104 H 11/10/22 20:00 112 H 25 H 100 Nasal Cannula 11/10/22 20:00 112 H 11/10/22 20:00 97.7 F 112 H 25 H 86/73 L 100 11/10/22 20:00 112 H 11/10/22 18:00 119 H 11/10/22 18:00 116 H 21 H 92/72 L 100 Intake/Output Intake/Output: Intake & Output 11/08/22 11/09/22 11/10/22 11/11/22 23:59 23:59 23:59 23:59 Intake Total 50 1760 450 Output Total 1200 250 Balance 50 560 200 Meds/Results Medications: Active Medications Generic Name Dose Route Start Last Admin Trade Name Freq PRN Reason Stop Dose Admin Acetaminophen 650 mg 11/10/22 08:47 11/10/22 09:56 Acetaminophen 325 Mg Tablet PO 650 mg Q6H PRN Administration Mild Pain (1-3) or Fever Albuterol 2.5 mg 11/09/22 21:54 Albuterol Sulfate Neb 2.5 Mg/3 Ml Inh INHALATION Q6HRT PRN Shortness Of Breath Atorva
--- NOTE | 2022-11-11 11:35 | P.PNNP_ITS ---
Progress Note: A&P Assessment and Plan (1) Hyponatremia: Code(s): E87.1 - Hypo-osmolality and hyponatremia Status: Chronic Assessment and Plan: * acute on chronic * sodium 132mmol/L about 2 months ago * chronicity due to: * tobacco use/lung disease * possible PPI use * on/off alcohol intake * nutrition issues * previous CVAs(?) * acute insult from: * binge alcohol intake * pre-renal factors * poor oral intake * s/p 3%% saline due to #2 * goal of therapy is rate of change in sodium of around 6 - 8mmol/L in 24 hours * concern for overcorrection yesterday but sodium better s/p D5W IVFs * follow trend of repeat sodium levels (2) Seizure: Code(s): R56.9 - Unspecified convulsions Status: Acute Assessment and Plan: * suspected by tonic-clonic movements prior to arrival/admission * no further seizure activity since admission * suspected to be potentiated by hyponatremia; however could be related to alcohol use (intoxication versus withdrawal) as well * s/p 3% saline x 1 on admission * continue supportive therapy (3) Hypokalemia: Code(s): E87.6 - Hypokalemia Status: Acute Assessment and Plan: * possible related to poor oral intake worsened by hypomagnesemia * K+ and magnesium replaced * follow repeat labs (4) UTI (urinary tract infection): Code(s): N39.0 - Urinary tract infection, site not specified Status: Acute Assessment and Plan: * urine culture results with E.coli * on antibiotics (5) Alcohol dependence: Code(s): F10.20 - Alcohol dependence, uncomplicated Status: Acute Assessment and Plan: * on thiamine and folate * monitor for withdrawal symptoms Will continue to follow. Subjective Date/time seen: 11/11/22 11:35 No new issues or complaints overnight or earlier this AM; was given D5W IVFs yesterday due to concerns for overcorrection -- responded appropriately; no further seizure activity to report; no other apparent concerns or problems to report at this time. Exam Narrative: General: WD/WN male in NAD Heart: normal S1 and S2; no rub Lungs: clear to auscultation Abdomen: soft, nontender, nondistended, positive bowel sounds Extremities: no cyanosis or clubbing; no edema Skin: warm and dry Objective Data Vital Signs Vital Signs: Vital Signs Temp Pulse Pulse Resp BP Pulse Ox O2 Del Method 11/11/22 11:13 112 H 28 H 11/11/22 11:02 119 H 24 H 11/11/22 10:00 112 H 11/11/22 08:00 116 H 11/11/22 08:00 120 H 98/87 L 11/11/22 08:00 97.9 F 119 H 28 H 98/87 L 100 11/11/22 08:00 125 H 29 H 100 Nasal Cannula 11/11/22 06:00 125 H 11/11/22 04:00 110 H 29 H 100 Nasal Cannula 11/11/22 04:33 120 H 99/76 L 11/11/22 04:00 97.6 F 120 H 28 H 99/76 L 11/11/22 04:00 120 H 11/11/22 02:00 111 H 11/11/22 00:00 98.1 F 111 H 20 105/75 100 11/11/22 00:00 111 H 11/11/22 00:00 110 H 29 H 100 Nasal Cannula 11/11/22 00:00 110 H 11/10/22 22:00 104 H 11/10/22 20:00 112 H 25 H 100 Nasal Cannula 11/10/22 20:00 112 H 11/10/22 20:00 97.7 F 112 H 25 H 86/73 L
[2022-11-11] MEDS: THIAMINE HCL 200 MG/2 ML VIAL 100 MG IV PUSH (12:26)
[2022-11-11] MEDS: GABAPENTIN 100 MG CAPSULE PO ×2 (12:27→16:01)
[2022-11-11] MEDS: METOPROLOL TARTRATE 12.5 MG TABLET PO (12:27)
[2022-11-11] MEDS: CLOPIDOGREL BISULFATE 75 MG TABLET PO (12:28)
[2022-11-11] MEDS: NICOTINE (*PBKC) 21 MG PATCH 1 PATCH TRANSDERM (16:01)
[2022-11-11] MEDS: FERROUS SULFATE 324 MG TABLET PO (16:01)
[2022-11-11] MEDS: MEGESTROL ACETATE (*CHEMO) ORAL SUSP 40 MG/ML SYR 400 MG PO (16:01)
[2022-11-11 18:21] LABS: Glucose Point of Care 108 mg/dl (65-105)
[2022-11-11] MEDS: DOCUSATE SODIUM 100 MG CAPSULE PO (20:12)
[2022-11-11] MEDS: ATORVASTATIN 20 MG TABLET PO (20:14)
[2022-11-11] MEDS: PANTOPRAZOLE 40 MG TABLET PO (20:15)
[2022-11-12] VITALS (14 sets, daily range): BP systolic 87–119; BP diastolic 69–89; PULSE 76–110; RESP 16–28; TEMP 36.2–36.9; O2SAT 97–98
[2022-11-12 00:06] LABS: Glucose Point of Care 120 mg/dl (65-105)
[2022-11-12] MEDS: chlordiazePOXIDE (*CRX) 25 MG CAPSULE 50 MG PO (00:07)
[2022-11-12 04:45] LABS: Hematocrit 29.4 % (42.0-52.0); Hemoglobin 10.2 g/dL (14.0-18.0); Mean Corpuscular HGB Conc 34.7 g/dl (32-36); Mean Corpuscular Hemoglobin 34.1 pg (26-34); Mean Corpuscular Volume 98.3 fl (80-100); Platelet Count Result 128 k/mm3 (150-375); Red Blood Count 2.99 M/mm3 (4.6-6.20); Red Cell Distribution Width 17.9 % (11.5-14.5); White Blood Count 11.1 K/mm3 (4.5-10.0)
[2022-11-12 05:04] LABS: Alanine Aminotransferase 19 U/L (6-50); Albumin Level 3.2 g/dL (3.5-5.1); Alkaline Phosphatase 121 U/L (38-126); Anion Gap 4 mmol/L (8-16); Aspartate Amino Transferase 58 U/L (17-59); Bilirubin,Total 0.8 mg/dL (0.2-1.3); Blood Urea Nitrogen 22 mg/dL (9-20); Calcium 7.9 mg/dL (8.4-10.2); Carbon Dioxide 33 mmol/L (22-30); Chloride 97 mmol/L (98-107); Estimated CRCL calculation 89 ml/min; Estimated Glomerular Filt Rate > 60; Glucose 133 mg/dL (65-110); Potassium 3.8 mmol/L (3.4-5.0); Sodium 134 mmol/L (137-145)
[2022-11-12] MEDS: LEVOTHYROXINE SODIUM 25 MCG TABLET PO (07:00)
[2022-11-12] MEDS: FOLIC ACID 1 MG TABLET PO (08:49)
[2022-11-12] MEDS: CYANOCOBALAMIN 1,000 MCG TABLET 1000 MCG PO (08:49)
[2022-11-12] MEDS: METOPROLOL TARTRATE 12.5 MG TABLET PO (08:49)
[2022-11-12] MEDS: PANTOPRAZOLE 40 MG TABLET PO ×2 (08:49→20:18)
[2022-11-12] MEDS: DOCUSATE SODIUM 100 MG CAPSULE PO (08:49)
[2022-11-12] MEDS: FERROUS SULFATE 324 MG TABLET PO ×2 (08:49→17:23)
[2022-11-12] MEDS: GABAPENTIN 100 MG CAPSULE PO ×3 (08:49→17:23)
[2022-11-12] MEDS: CLOPIDOGREL BISULFATE 75 MG TABLET PO (08:50)
[2022-11-12] MEDS: MEGESTROL ACETATE (*CHEMO) ORAL SUSP 40 MG/ML SYR 400 MG PO ×2 (08:50→17:23)
[2022-11-12] MEDS: THIAMINE HCL 200 MG/2 ML VIAL 100 MG IV PUSH (08:50)
[2022-11-12] MEDS: POTASSIUM CHLORIDE 20 MEQ TABLET.ER PO (08:50)
[2022-11-12 09:25] LABS: Ammonia < 9 umol/L (9-30)
--- NOTE | 2022-11-12 09:40 | P.PNNP_ITS ---
Progress Note: A&P Assessment and Plan (1) Hyponatremia: Code(s): E87.1 - Hypo-osmolality and hyponatremia Status: Chronic Assessment and Plan: * acute on chronic * sodium 132mmol/L about 2 months ago * chronicity due to: * tobacco use/lung disease * possible PPI use * on/off alcohol intake * nutrition issues * previous CVAs(?) * acute insult from: * binge alcohol intake * pre-renal factors * poor oral intake * s/p 3%% saline due to #2 * sodium 120 on admit 11/09 at 1550 127 11/10 at 4am 132 11/10 at 10am 127 11/10 at 9pm 130 11/11 at 31m 134 11/12 430am currently on fluid restriction (in effect as npo) will check another level this pm (2) Seizure: Code(s): R56.9 - Unspecified convulsions Status: Acute Assessment and Plan: * suspected by tonic-clonic movements prior to arrival/admission * no further seizure activity since admission * suspected to be potentiated by hyponatremia; however could be related to alcohol use (intoxication versus withdrawal) as well * s/p 3% saline x 1 on admission * continue supportive therapy (3) Hypokalemia: Code(s): E87.6 - Hypokalemia Status: Acute Assessment and Plan: * possible related to poor oral intake worsened by hypomagnesemia * Potassium okay today. (4) UTI (urinary tract infection): Code(s): N39.0 - Urinary tract infection, site not specified Status: Acute Assessment and Plan: * urine culture results with E.coli * on antibiotics (5) Alcohol dependence: Code(s): F10.20 - Alcohol dependence, uncomplicated Status: Acute Assessment and Plan: * on thiamine and folate * monitor for withdrawal symptoms Will continue to follow. Subjective Date/time seen: 11/12/22 09:40 Interval history: the patient is not responsive. He mumbles a few words. Lying flat in bed and looks comfortable. He is getting an EEG. Exam Narrative: General: WD/WN male in NAD Heart: normal S1 and S2; no rub or gallop Lungs: clear Abdomen: soft, nontender, nondistended, positive bowel sounds Extremities: no cyanosis or clubbing; no edema Skin: no rash Objective Data Vital Signs Vital Signs: Vital Signs - 24 hr 12/18/22 10:00 11/11/22 11:02 11/11/22 11:13 Temperature Pulse Rate 112 H 119 H 112 H Pulse Rate [Bilateral Pedal (Dorsalis Pedis) Palpation] Respiratory Rate 24 H 28 H Blood Pressure Pulse Oximetry Oxygen Delivery Oxygen Flow Rate 11/11/22 12:27 11/11/22 12:00 11/11/22 12:00 Temperature Pulse Rate 110 H 104 H Pulse Rate [Bilateral Pedal (Dorsalis Pedis) Palpation] 105 H Respiratory Rate 31 H Blood Pressure 83/70 L Pulse Oximetry 100 Oxygen Delivery Nasal Cannula Oxygen Flow Rate 2 11/11/22 14:00 11/11/22 12:00 11/11/22 16:00 Temperature Pulse Rate 107 H 104 H Pulse Rate [Bilateral Pedal (Dorsalis Pedis) Palpation] 100 Respiratory Rate Blood Pressure 116/101 H Pulse Oximetry Oxygen Delivery Oxygen Flow Rate 11/11/22 16:00 10/25
--- NOTE | 2022-11-12 09:40 | PM.PNNEP ---
Progress Note: A&P Assessment and Plan (1) Hyponatremia: Code(s): E87.1 - Hypo-osmolality and hyponatremia Status: Chronic Assessment and Plan: acute on chronic sodium 132mmol/L about 2 months ago chronicity due to: tobacco use/lung disease possible PPI use on/off alcohol intake nutrition issues previous CVAs(?) acute insult from: binge alcohol intake pre-renal factors poor oral intake s/p 3%% saline due to #2 sodium 120 on admit 11/09 at 1550 127 11/10 at 4am 132 11/10 at 10am 127 12 at 9pm 130 11/11 at 31m 134 11/12 430am currently on fluid restriction (in effect as npo) will check another level this pm (2) Seizure: Code(s): R56.9 - Unspecified convulsions Status: Acute Assessment and Plan: suspected by tonic-clonic movements prior to arrival/admission no further seizure activity since admission suspected to be potentiated by hyponatremia; however could be related to alcohol use (intoxication versus withdrawal) as well s/p 3% saline x 1 on admission continue supportive therapy (3) Hypokalemia: Code(s): E87.6 - Hypokalemia Status: Acute Assessment and Plan: possible related to poor oral intake worsened by hypomagnesemia Potassium okay today. (4) UTI (urinary tract infection): Code(s): N39.0 - Urinary tract infection, site not specified Status: Acute Assessment and Plan: urine culture results with E.coli on antibiotics (5) Alcohol dependence: Code(s): F10.20 - Alcohol dependence, uncomplicated Status: Acute Assessment and Plan: on thiamine and folate monitor for withdrawal symptoms Will continue to follow. Subjective Date/time seen: 11/12/22 09:40 Interval history: the patient is not responsive. He mumbles a few words. Lying flat in bed and looks comfortable. He is getting an EEG. Exam Narrative: General: WD/WN male in NAD Heart: normal S1 and S2; no rub or gallop Lungs: clear Abdomen: soft, nontender, nondistended, positive bowel sounds Extremities: no cyanosis or clubbing; no edema Skin: no rash Objective Data Vital Signs Vital Signs: Vital Signs - 24 hr 11/11/22 10:00 11/11/22 11:02 11/11/22 11:13 Temperature Pulse Rate 112 H 119 H 112 H Pulse Rate [Bilateral Pedal (Dorsalis Pedis) Palpation] Respiratory Rate 24 H 28 H Blood Pressure Pulse Oximetry Oxygen Delivery Oxygen Flow Rate 11/11/22 12:27 11/11/22 12:00 11/11/22 12:00 Temperature Pulse Rate 110 H 104 H Pulse Rate [Bilateral Pedal (Dorsalis Pedis) Palpation] 105 H Respiratory Rate 31 H Blood Pressure 83/70 L Pulse Oximetry 100 Oxygen Delivery Nasal Cannula Oxygen Flow Rate 2 11/11/22 14:00 11/11/22 12:00 11/11/22 16:00 Temperature Pulse Rate 107 H 104 H Pulse Rate [Bilateral Pedal (Dorsalis Pedis) Palpation] 100 Respiratory Rate Blood Pressure 116/101 H Pulse Oximetry Oxygen Delivery Oxygen Flow Rate 11/11/22 16:00 11/11/22 16:00 11/11/22 09:50 Temperature Pulse Rate 100 100 119 H Pulse Rate [Bilateral Pedal (Dorsalis Pedis) Palpation] Respiratory Rate 35 H 32 H Blood Pressure Pulse Oximetry 100 Oxygen Delivery Nasal Cannula Oxygen Flow Rate 2 11/11/22 10:00 11/11/22 10:01 11/11/22 10:15 Temperature Pulse Rate 115 H 117 H 114 H Pulse Rate [Bilateral Pedal (Dorsalis Pedis) Palpation] Respiratory Rate 32 H 31 H 32 H Blood Pressure 116/73 Pulse Oximetry Oxygen Delivery Oxygen Flow Rate 11/11/22 10:30 11/11/22 11:49 11/11/22 12:10 Temperature Pulse Rate 121 H 100 105 H Pulse Rate [Bilateral Pedal (Dorsalis Pedis) Palpation] Respiratory Rate 27 H 31 H 29 H Blood Pressure Pulse Oximetry Oxygen Delivery Oxygen Flow Rate 11/11/22 12:18 11/11/22 12:32 11/11/22 12:54 Temperature Pulse Rate 125 H 115
[2022-11-12] MEDS: NICOTINE (*PBKC) 21 MG PATCH 1 PATCH TRANSDERM (10:00)
[2022-11-12] MEDS: predniSONE 20 MG TABLET 60 MG PO (10:00)
[2022-11-12] MEDS: LORazepam INJ (*CRX) 2 MG/ML VIAL IV PUSH (10:13)
--- NOTE | 2022-11-12 10:42 | WPDNEUROLOGY ---
Neurology EEG Report General Information Date of Study: 11/12/22 TEST Routine EEG DIAGNOSIS Alcohol withdrawal, seizure CONDITION OF RECORDING Patient encephalopathic EEG NUMBER [id number] CLINICAL HISTORY Patient presented to [facility] after having a generalized tonic clonic seizure in the setting of possible alcohol withdrawal. Patient unable to contribute to history. EEG DESCRIPTION The recording is continuous. There is absence of well developed posterior dominant rhythm, although anterior-posterior gradient is present. The background consists of mostly low voltage alpha and theta range activity. There are no asymmetries in background. Patient did not enter stage II sleep, as there was no normal sleep architecture visualized. No epileptiform features or electrographic seizures were seen during the recording. Activation procedures were not done. IMPRESSION This is an abnormal EEG due to the absence of well-developed posterior dominant rhythm. This finding can be seen in the setting of mild encephalopathy. There are no electrographic seizures or epileptiform features noted during the recording. Clinical correlation is recommended.
--- NOTE | 2022-11-12 11:07 | WPDINTPN ---
Progress Note: A&P Assessment and Plan (1) Seizure: Code(s): R56.9 - Unspecified convulsions Status: Acute Assessment and Plan: Patient and his brother in law were in and drive through with [id number] noted that the patient had some tonic clonic convulsions and brought him to the ER on 11/09 -patient has not had any seizure activity since then -he was found to have a sodium level of 120 and was given 3% saline ER -continue seizure precautions -could be related to alcohol intoxication and withdrawal -continue to monitor EEG 11/12 This is an abnormal EEG due to the absence of well-developed posterior dominant rhythm. This finding can be seen in the setting of mild encephalopathy. There are no electrographic seizures or epileptiform features noted during the recording. Clinical correlation is recommended (2) Hyponatremia: Code(s): E87.1 - Hypo-osmolality and hyponatremia Status: Acute Assessment and Plan: Hyponatremia, sodium levels of 120, patient has a history of chronic hyponatremia and has been treated in the hospital and the past, -nephrology following and managing -sodium improved and stable -likely secondary to chronic alcoholism too (3) Alcohol dependence: Code(s): F10.20 - Alcohol dependence, uncomplicated Status: Acute Assessment and Plan: Continue to monitor for withdrawals -continue folic acid and thiamine -continue Librium but decrease dose -CIWA protocol, p.r.n. Ativan Counseled patient on cessation of alcohol and possibly getting some rehab (4) Tobacco dependence: Code(s): F17.200 - Nicotine dependence, unspecified, uncomplicated Status: Acute Assessment and Plan: Nicotine patch (5) Hypothyroidism: Code(s): E03.9 - Hypothyroidism, unspecified Status: Acute Assessment and Plan: Continue levothyroxine (6) Hypokalemia: Code(s): E87.6 - Hypokalemia Status: Acute Assessment and Plan: Potassium has been replaced (7) UTI (urinary tract infection): Code(s): N39.0 - Urinary tract infection, site not specified Status: Acute Assessment and Plan: UA was reflective of UTI, urine cultures are growing multidrug resistant E coli which is sensitive to cefepime Continue cefepime (8) COPD exacerbation: Code(s): J44.1 - Chronic obstructive pulmonary disease with (acute) exacerbation Status: Acute Assessment and Plan: Patient has history of COPD and has significant wheezing on exam Start short course of prednisone Continue bronchodilator Plan DVT prophylaxis: SCDs, no chemoprophylaxis due to thrombocytopenia Stress ulcer prophylaxis: Protonix p.o. q.12 hours which is home medication Nutrition: Heart healthy diet Code Status: Full code Discussed with Nephrology PT OT consult Subjective Date/time seen: 11/12/22 11:07 Patient is awake and in no distress. Poor historian. Denies any specific complaint. Feels tired. Patient denies fever, chest pain, shortness of breath, cough, nausea vomiting, abdominal pain, diarrhea, headache or constipation. All other systems were reviewed and were negative Review of Systems Review of Systems: All systems reviewed & are unremarkable except as noted in HPI and below (Subjective) Exam Narrative: General: Frail gentleman who looks older than his age, no distress HEENT:? Pupils are equal and reactive, sclera is clear Neck:? Supple Respiratory:? Coarse breath sounds, bilateral wheezing, barrel chest Cardiac:? S1-S2 is normal, no murmurs Abdomen:? Soft, nontender, nondistended, normoactive bowel sounds Extremities:? No edema, palpable pedal pulses Neuro:? Patient is awake, alert, oriented, nonfocal answers to questions appropriately and follows simple commands, tremors present Skin:? Dry and flaky skin on lower extremities Psych:? Normal mentation and affect Objective Data Vital Signs Vital Signs: Vital Signs - 24 hr
[2022-11-12 12:18] LABS: Glucose Point of Care 136 mg/dl (65-105)
[2022-11-12] MEDS: chlordiazePOXIDE (*CRX) 25 MG CAPSULE PO ×3 (12:19→23:45)
[2022-11-12 16:20] LABS: Sodium 131 mmol/L (137-145)
[2022-11-12 18:16] LABS: Glucose Point of Care 131 mg/dl (65-105)
[2022-11-12] MEDS: ATORVASTATIN 20 MG TABLET PO (20:18)
[2022-11-13] VITALS (10 sets, daily range): BP systolic 81–99; BP diastolic 61–83; PULSE 74–108; RESP 12–24; TEMP 36.1–36.4; O2SAT 90–98
[2022-11-13 01:21] LABS: Glucose Point of Care 100 mg/dl (65-105)
[2022-11-13 03:40] LABS: Hematocrit 31.2 % (42.0-52.0); Hemoglobin 10.6 g/dL (14.0-18.0); Mean Corpuscular Hemoglobin 34.4 pg (26-34); Mean Corpuscular Volume 101.3 fl (80-100); Mean Platelet Volume 11.4 fl (7.4-10.4); Platelet Count Result 122 k/mm3 (150-375); Red Blood Count 3.08 M/mm3 (4.6-6.20); Red Cell Distribution Width 18.3 % (11.5-14.5); White Blood Count 7.8 K/mm3 (4.5-10.0)
[2022-11-13 03:51] LABS: Alanine Aminotransferase 18 U/L (6-50); Alkaline Phosphatase 100 U/L (38-126); Anion Gap 4 mmol/L (8-16); Aspartate Amino Transferase 49 U/L (17-59); Bilirubin,Total 0.5 mg/dL (0.2-1.3); Blood Urea Nitrogen 27 mg/dL (9-20); Calcium 7.7 mg/dL (8.4-10.2); Carbon Dioxide 30 mmol/L (22-30); Chloride 99 mmol/L (98-107); Estimated CRCL calculation 80 ml/min; Estimated Glomerular Filt Rate > 60; Glucose 127 mg/dL (65-110); Magnesium 2.4 mg/dL (1.6-2.3); Potassium 3.8 mmol/L (3.4-5.0); Sodium 133 mmol/L (137-145)
[2022-11-13] MEDS: chlordiazePOXIDE (*CRX) 25 MG CAPSULE PO ×4 (05:56→23:43)
[2022-11-13] MEDS: LEVOTHYROXINE SODIUM 25 MCG TABLET PO (05:56)
[2022-11-13] MEDS: NICOTINE (*PBKC) 21 MG PATCH 1 PATCH TRANSDERM (08:15)
[2022-11-13] MEDS: CYANOCOBALAMIN 1,000 MCG TABLET 1000 MCG PO (08:17)
[2022-11-13] MEDS: POTASSIUM CHLORIDE 20 MEQ TABLET.ER PO (08:17)
[2022-11-13] MEDS: FERROUS SULFATE 324 MG TABLET PO ×2 (08:18→16:09)
[2022-11-13] MEDS: FOLIC ACID 1 MG TABLET PO (08:18)
[2022-11-13] MEDS: MEGESTROL ACETATE (*CHEMO) ORAL SUSP 40 MG/ML SYR 400 MG PO ×2 (08:18→16:09)
[2022-11-13] MEDS: GABAPENTIN 100 MG CAPSULE PO ×3 (08:19→16:09)
[2022-11-13] MEDS: DOCUSATE SODIUM 100 MG CAPSULE PO ×2 (08:19→20:47)
[2022-11-13] MEDS: PANTOPRAZOLE 40 MG TABLET PO ×2 (08:19→20:47)
[2022-11-13] MEDS: METOPROLOL TARTRATE 12.5 MG TABLET PO ×2 (08:19→20:48)
[2022-11-13] MEDS: THIAMINE HCL 200 MG/2 ML VIAL 100 MG IV PUSH (08:20)
[2022-11-13] MEDS: CLOPIDOGREL BISULFATE 75 MG TABLET PO (08:20)
[2022-11-13] MEDS: predniSONE 20 MG TABLET 60 MG PO (08:20)
--- NOTE | 2022-11-13 09:01 | P.PNNP_ITS ---
Progress Note: A&P Assessment and Plan (1) Hyponatremia: Code(s): E87.1 - Hypo-osmolality and hyponatremia Status: Chronic Assessment and Plan: * acute on chronic * sodium 132mmol/L about 2 months ago * chronicity due to: * tobacco use/lung disease * possible PPI use * on/off alcohol intake * nutrition issues * previous CVAs(?) * acute insult from: * binge alcohol intake * pre-renal factors * poor oral intake * s/p 3%% saline due to #2 * sodium 120 on admit 11/09 at 1550 127 11/10 at 4am 132 11/10 at 10am 127 11/10 at 9pm 130 11/11 at 31m 134 11/12 430am 133 11/13 313am now that he is awake, consider fluid restriction (2) Seizure: Code(s): R56.9 - Unspecified convulsions Status: Acute Assessment and Plan: * suspected by tonic-clonic movements prior to arrival/admission * no further seizure activity since admission * suspected to be potentiated by hyponatremia; however could be related to alcohol use (intoxication versus withdrawal) as well * s/p 3% saline x 1 on admission * continue supportive therapy (3) Hypokalemia: Code(s): E87.6 - Hypokalemia Status: Acute Assessment and Plan: * resolved. (4) UTI (urinary tract infection): Code(s): N39.0 - Urinary tract infection, site not specified Status: Acute Assessment and Plan: * urine culture results with E.coli * on antibiotics (5) Alcohol dependence: Code(s): F10.20 - Alcohol dependence, uncomplicated Status: Acute Assessment and Plan: * on thiamine and folate * monitor for withdrawal symptoms Subjective Date/time seen: 11/13/22 09:01 Interval history: the patient is awake today. no sob or cp. conversive. he was sober for a while but slipped leading to this binge. he belongs to AA and has other support groups he says. Exam Narrative: General: WD/WN male in NAD Heart: normal S1 and S2; no rub or gallop Lungs: clear bilaterally Abdomen: soft, nontender, nondistended, positive bowel sounds Extremities: no cyanosis or clubbing; no edema Skin: no rash or sq nodules Objective Data Vital Signs Vital Signs: Vital Signs - 24 hr 11/12/22 10:00 11/12/22 10:17 11/12/22 12:00 Temperature Pulse Rate 105 H 97 Respiratory Rate Blood Pressure Pulse Oximetry 97 Oxygen Delivery Nasal Cannula Oxygen Flow Rate 1 11/12/22 12:00 11/12/22 12:00 11/12/22 13:32 Temperature 97.1 F L Pulse Rate 92 88 Respiratory Rate 16 Blood Pressure 112/69 Pulse Oximetry 98 97 Oxygen Delivery Nasal Cannula Oxygen Flow Rate 2 11/12/22 20:00 11/12/22 20:07 11/12/22 20:19 Temperature Pulse Rate 77 77 76 Respiratory Rate Blood Pressure Pulse Oximetry 97 Oxygen Delivery Nasal Cannula Oxygen Flow Rate 2 11/12/22 23:19 11/13/22 01:00 11/13/22 04:54 Temperature 97.5 F L Pulse Rate 86 80 89 Respiratory Rate 22 H Blood Pressure 87/73 L Pulse Oximetry 98 Oxygen Delivery
--- NOTE | 2022-11-13 09:01 | PM.PNNEP ---
Progress Note: A&P Assessment and Plan (1) Hyponatremia: Code(s): E87.1 - Hypo-osmolality and hyponatremia Status: Chronic Assessment and Plan: acute on chronic sodium 132mmol/L about 2 months ago chronicity due to: tobacco use/lung disease possible PPI use on/off alcohol intake nutrition issues previous CVAs(?) acute insult from: binge alcohol intake pre-renal factors poor oral intake s/p 3%% saline due to #2 sodium 120 on admit 11/09 at 1550 127 11/10 at 4am 132 11/10 at 10am 127 11/10 at 9pm 130 11/11 at 31m 134 11/12 430am 133 11/13 313am now that he is awake, consider fluid restriction (2) Seizure: Code(s): R56.9 - Unspecified convulsions Status: Acute Assessment and Plan: suspected by tonic-clonic movements prior to arrival/admission no further seizure activity since admission suspected to be potentiated by hyponatremia; however could be related to alcohol use (intoxication versus withdrawal) as well s/p 3% saline x 1 on admission continue supportive therapy (3) Hypokalemia: Code(s): E87.6 - Hypokalemia Status: Acute Assessment and Plan: resolved. (4) UTI (urinary tract infection): Code(s): N39.0 - Urinary tract infection, site not specified Status: Acute Assessment and Plan: urine culture results with E.coli on antibiotics (5) Alcohol dependence: Code(s): F10.20 - Alcohol dependence, uncomplicated Status: Acute Assessment and Plan: on thiamine and folate monitor for withdrawal symptoms Subjective Date/time seen: 11/13/22 09:01 Interval history: the patient is awake today. no sob or cp. conversive. he was sober for a while but slipped leading to this binge. he belongs to AA and has other support groups he says. Exam Narrative: General: WD/WN male in NAD Heart: normal S1 and S2; no rub or gallop Lungs: clear bilaterally Abdomen: soft, nontender, nondistended, positive bowel sounds Extremities: no cyanosis or clubbing; no edema Skin: no rash or sq nodules Objective Data Vital Signs Vital Signs: Vital Signs - 24 hr 11/12/22 10:00 11/12/22 10:17 11/12/22 12:00 Temperature Pulse Rate 105 H 97 Respiratory Rate Blood Pressure Pulse Oximetry 97 Oxygen Delivery Nasal Cannula Oxygen Flow Rate 1 11/12/22 12:00 11/12/22 12:00 11/12/22 13:32 Temperature 97.1 F L Pulse Rate 92 88 Respiratory Rate 16 Blood Pressure 112/69 Pulse Oximetry 98 97 Oxygen Delivery Nasal Cannula Oxygen Flow Rate 2 11/12/22 20:00 11/12/22 20:07 11/12/22 20:19 Temperature Pulse Rate 77 77 76 Respiratory Rate Blood Pressure Pulse Oximetry 97 Oxygen Delivery Nasal Cannula Oxygen Flow Rate 2 11/12/22 23:19 11/13/22 01:00 11/13/22 04:54 Temperature 97.5 F L Pulse Rate 86 80 89 Respiratory Rate 22 H Blood Pressure 87/73 L Pulse Oximetry 98 Oxygen Delivery Oxygen Flow Rate 11/13/22 04:54 11/13/22 08:19 11/13/22 08:00 Temperature 97.6 F Pulse Rate 89 91 91 Respiratory Rate 20 24 H Blood Pressure 97/81 L 99/83 L Pulse Oximetry 94 Oxygen Delivery Oxygen Flow Rate Intake/Output Intake/Output: Intake & Output 11/10/22 11/11/22 11/12/22 11/13/22 23:59 23:59 23:59 23:59 Intake Total 1760 820 550 150 Output Total 1200 650 Balance 560 170 550 150 Meds/Results Medications: Active Medications Generic Name Dose Route Start Last Admin Trade Name Freq PRN Reason Stop Dose Admin Acetaminophen 650 mg 11/10/22 08:47 11/10/22 09:56 Acetaminophen 325 Mg Tablet PO 650 mg Q6H PRN Administration Mild Pain (1-3) or Fever Albuterol 2.5 mg 11/09/22 21:54 Albuterol Sulfate Neb 2.5 Mg/3 Ml Inh INHALATION Q6HRT PRN Shortness Of Breath Atorvastatin Calcium 20 mg 11/09/22 21:55 11/12/22 20:18 Atorvastatin 20
--- NOTE | 2022-11-13 11:32 | WPDINTPN ---
Subjective Date/time seen: 11/13/22 11:32 Objective Data Vital Signs Vital Signs: Vital Signs - 24 hr 11/12/22 12:00 11/12/22 12:00 11/12/22 12:00 Temperature 36.2 C L Pulse Rate 97 92 Respiratory Rate 16 Blood Pressure 112/69 Pulse Oximetry 98 97 Oxygen Delivery Nasal Cannula Oxygen Flow Rate 2 11/12/22 13:32 11/12/22 20:00 11/12/22 20:07 Temperature Pulse Rate 88 77 77 Respiratory Rate Blood Pressure Pulse Oximetry 97 Oxygen Delivery Nasal Cannula Oxygen Flow Rate 2 11/12/22 20:19 11/12/22 23:19 11/13/22 01:00 Temperature 36.4 C L Pulse Rate 76 86 80 Respiratory Rate 22 H Blood Pressure 87/73 L Pulse Oximetry 98 Oxygen Delivery Oxygen Flow Rate 11/13/22 04:54 11/13/22 04:54 11/13/22 08:19 Temperature Pulse Rate 89 89 91 Respiratory Rate 20 Blood Pressure 97/81 L Pulse Oximetry Oxygen Delivery Oxygen Flow Rate 11/13/22 08:00 11/13/22 09:40 Temperature 36.4 C Pulse Rate 91 Respiratory Rate 24 H Blood Pressure 99/83 L Pulse Oximetry 94 Oxygen Delivery Room Air Oxygen Flow Rate Intake/Output Intake/Output: Intake & Output 11/10/22 11/11/22 11/12/22 11/13/22 23:59 23:59 23:59 23:59 Intake Total 1760 820 550 270 Output Total 1200 650 Balance 560 170 550 270 Meds/Results Medications: Active Medications Generic Name Dose Route Start Last Admin Trade Name Anatoliyq PRN Reason Stop Dose Admin Acetaminophen 650 mg 11/10/22 08:47 11/10/22 09:56 Acetaminophen 325 Mg Tablet PO 650 mg Q6H PRN Administration Mild Pain (1-3) or Fever Albuterol 2.5 mg 11/09/22 21:54 Albuterol Sulfate Neb 2.5 Mg/3 Ml Inh INHALATION Q6HRT PRN Shortness Of Breath Atorvastatin Calcium 20 mg 11/09/22 21:55 11/12/22 20:18 Atorvastatin 20 Mg Tablet PO 20 mg HS NESSA Administration Bisacodyl 10 mg 11/09/22 21:49 Bisacodyl 10 Mg Suppository RECTAL DAILY PRN Constipation Chlordiazepoxide HCl 25 mg 11/12/22 12:00 11/13/22 05:56 Chlordiazepoxide (*Crx) 25 Mg Capsule PO 25 mg Q6HR NESSA Administration Clopidogrel Bisulfate 75 mg 11/10/22 09:00 11/13/22 08:20 Clopidogrel Bisulfate 75 Mg Tablet PO 75 mg QAM NESSA Administration Cyanocobalamin 1,000 mcg 11/10/22 09:00 11/13/22 08:17 Cyanocobalamin 1,000 Mcg Tablet PO 1,000 mcg DAILY NESSA Administration Docusate Sodium 100 mg 11/09/22 21:50 11/13/22 08:19 Docusate Sodium 100 Mg Capsule PO 100 mg Q12HR NESSA Administration Ferrous Sulfate 324 mg 11/10/22 09:00 11/13/22 08:18 Ferrous Sulfate 324 Mg Tablet PO 324 mg BID NESSA Administration Folic Acid 1 mg 11/10/22 09:00 11/13/22 08:18 Folic Acid 1 Mg Tablet PO 1 mg DAILY NESSA Administration Gabapentin 100 mg 11/09/22 22:00 11/13/22 08:19 Gabapentin 100 Mg Capsule PO 100 mg TID NESSA Administration Cefepime HCl 1 gm in 50 mls @ 100 mls/hr 11/10/22 10:00 11/13/22 08:14 Maxipime 1 Gm/D5w 50 Ml IVPB 100 mls/hr Q12HR NESSA Administration Ipratropium [place] 0.5 mg 11/11/22 04:42 11/11/22 11:03 Ipratropium Br 0.02% Inh Soln 0.5 Mg/2.5 Ml Vial INHALATION 0.5 mg Q6HRT PRN Administration Shortness Of Breath Levalbuterol HCl 1.25 mg 11/11/22 04:42 11/11/22 11:03 Levalbuterol Neb 1.25 Mg/0.5 Ml INHALATION 1.25 mg Q6HRT PRN Administration shortness of breath Levothyroxine Sodium 25 mcg 11/10/22 06:30 11/13/22 05:56 Levothyroxine Sodium 25 Mcg Tablet PO 25 mcg DAILY@0630 NESSA Administration Lorazepam 2 mg 11/13/22 08:13 Lorazepam Inj (*Crx) 2 Mg/Ml Vial IV PUSH Q4H PRN Acute Agitation Megestrol Acetate 400 mg 11/10/22 09:00 11/13/22 08:18 Megestrol Acetate (*Chemo) Oral Susp 40 Mg/Ml Syr PO 400 mg BID NESSA Administration Metoprolol Tartrate 12.5 mg 11/11/22 09:00 11/13/22 08:19 Metoprolol Tartrate 12.5 Mg Tablet PO 12.5 mg Q12HR NESSA Adminis
--- NOTE | 2022-11-13 11:32 | PM.IMPN ---
Progress Note: A&P Assessment and Plan (1) Seizure: Code(s): R56.9 - Unspecified convulsions Status: Acute Assessment and Plan: Patient and his brother in law were in and drive through with [id number] noted that the patient had some tonic clonic convulsions and brought him to the ER on 11/09 -patient has not had any seizure activity since then -he was found to have a sodium level of 120 and was given 3% saline ER -continue seizure precautions -could be related to alcohol intoxication and withdrawal -continue to monitor EEG 11/12 This is an abnormal EEG due to the absence of well-developed posterior dominant rhythm. This finding can be seen in the setting of mild encephalopathy. There are no electrographic seizures or epileptiform features noted during the recording. Clinical correlation is recommended (2) Hyponatremia: Code(s): E87.1 - Hypo-osmolality and hyponatremia Status: Acute Assessment and Plan: Hyponatremia, sodium levels of 120, patient has a history of chronic hyponatremia and has been treated in the hospital and the past, -nephrology following and managing -sodium improved and stable -likely secondary to chronic alcoholism too (3) Alcohol dependence: Code(s): F10.20 - Alcohol dependence, uncomplicated Status: Acute Assessment and Plan: Continue to monitor for withdrawals -continue folic acid and thiamine -continue Librium at low-dose. Likely discharged on taper -CIWA protocol, p.r.n. Ativan ordered but patient has not been requiring Counseled patient on cessation of alcohol and possibly getting some rehab (4) Tobacco dependence: Code(s): F17.200 - Nicotine dependence, unspecified, uncomplicated Status: Acute Assessment and Plan: Nicotine patch (5) Hypothyroidism: Code(s): E03.9 - Hypothyroidism, unspecified Status: Acute Assessment and Plan: Continue levothyroxine (6) Hypokalemia: Code(s): E87.6 - Hypokalemia Status: Acute Assessment and Plan: Potassium has been replaced (7) UTI (urinary tract infection): Code(s): N39.0 - Urinary tract infection, site not specified Status: Acute Assessment and Plan: UA was reflective of UTI, urine cultures are growing multidrug resistant E coli which is sensitive to cefepime Continue cefepime (8) COPD exacerbation: Code(s): J44.1 - Chronic obstructive pulmonary disease with (acute) exacerbation Status: Acute Assessment and Plan: Patient has history of COPD and has significant wheezing on exam Start short course of prednisone Continue bronchodilator Plan DVT prophylaxis: SCDs, no chemoprophylaxis due to thrombocytopenia Stress ulcer prophylaxis: Protonix p.o. q.12 hours which is home medication Nutrition: Heart healthy diet Code Status: Full code Discussed with Nephrology PT OT consult Incentive spirometry Subjective Date/time seen: 11/13/22 No significant events overnight. Did not need any Ativan overnight. This morning he is awake and alert. States that he has back pain laying in the bed for so many days. Denies any other complaints. Patient denies fever, chest pain, shortness of breath, cough, nausea vomiting, abdominal pain,, diarrhea, headache or constipation. All other systems were reviewed and were negative. Good urine output. Afebrile. Tolerating p.o. diet Review of Systems Review of Systems: All systems reviewed & are unremarkable except as noted in HPI and below (Subjective) Exam Narrative: General: Frail gentleman who looks older than his age, no distress HEENT:? Pupils are equal and reactive, sclera is clear Neck:? Supple Respiratory:? Coarse breath sounds, bilateral wheezing, barrel chest Cardiac:? S1-S2 is normal, no murmurs Abdomen:? Soft, nontender, nondistended, normoactive bowel sounds Extremities:? No edema, palpable pedal pulses Neuro:? Patient is awake, alert, oriented x3,
[2022-11-13 12:03] LABS: Glucose Point of Care 199 mg/dl (65-105)
[2022-11-13 15:52] LABS: Osmolality, Urine 424 mOsm/kg (50-1200)
[2022-11-13] MEDS: LORazepam INJ (*CRX) 2 MG/ML VIAL IV PUSH (16:06)
[2022-11-13 17:45] LABS: Glucose Point of Care 178 mg/dl (65-105)
[2022-11-13] MEDS: ATORVASTATIN 20 MG TABLET PO (20:47)
--- NOTE | 2022-11-13 23:36 | PC.NURSE ---
Patient arrived to floor 2335, received report from prev ANGÉLICA herndon
--- NOTE | 2022-11-13 23:57 | PC.NURSE ---
This patient, Simon Barraza ., was transferred to [facility] on 11/13/22 at 2325. Personal belongings sent with patient. Report given to Rayne LINDSAY. Appropriate documentation sent with patient.
[2022-11-14] VITALS (11 sets, daily range): BP systolic 89–95; BP diastolic 62–73; PULSE 66–88; RESP 18; TEMP 36.4–36.7; O2SAT 93–95
[2022-11-14 05:47] LABS: Albumin 3.3 g/dL (3.8-4.8); Alpha 1 Globulin 0.4 g/dL (0.2-0.3); Alpha 2 Globulin 0.6 g/dL (0.5-0.9); Beta 1 Globulin 0.3 g/dL (0.4-0.6); Gamma Globulin 1.1 g/dL (0.8-1.7); Protein, Total 6.1 g/dL (6.1-8.1)
[2022-11-14] MEDS: LEVOTHYROXINE SODIUM 25 MCG TABLET PO (06:00)
[2022-11-14] MEDS: chlordiazePOXIDE (*CRX) 25 MG CAPSULE PO ×4 (06:00→23:54)
[2022-11-14 06:24] LABS: Glucose Point of Care 128 mg/dl (65-105)
[2022-11-14 07:23] LABS: Hematocrit 31.7 % (42.0-52.0); Hemoglobin 10.6 g/dL (14.0-18.0); Mean Corpuscular HGB Conc 33.4 g/dl (32-36); Mean Corpuscular Hemoglobin 33.8 pg (26-34); Mean Platelet Volume 11.4 fl (7.4-10.4); Platelet Count Result 129 k/mm3 (150-375); Red Blood Count 3.14 M/mm3 (4.6-6.20); Red Cell Distribution Width 18.9 % (11.5-14.5); White Blood Count 8.7 K/mm3 (4.5-10.0)
[2022-11-14 07:28] LABS: Alanine Aminotransferase 20 U/L (6-50); Albumin Level 3.1 g/dL (3.5-5.1); Alkaline Phosphatase 91 U/L (38-126); Anion Gap 2 mmol/L (8-16); Aspartate Amino Transferase 39 U/L (17-59); Bilirubin,Total 0.6 mg/dL (0.2-1.3); Blood Urea Nitrogen 29 mg/dL (9-20); Carbon Dioxide 33 mmol/L (22-30); Chloride 101 mmol/L (98-107); Estimated CRCL calculation 65 ml/min; Estimated Glomerular Filt Rate > 60; Glucose 112 mg/dL (65-110); Magnesium 2.4 mg/dL (1.6-2.3); Phosphorus 2.5 mg/dL (2.5-4.5); Potassium 3.8 mmol/L (3.4-5.0); Sodium 136 mmol/L (137-145)
[2022-11-14] MEDS: DOCUSATE SODIUM 100 MG CAPSULE PO ×2 (09:48→21:33)
[2022-11-14] MEDS: NICOTINE (*PBKC) 21 MG PATCH 1 PATCH TRANSDERM (09:48)
[2022-11-14] MEDS: METOPROLOL TARTRATE 12.5 MG TABLET PO ×2 (09:48→21:33)
[2022-11-14] MEDS: POTASSIUM CHLORIDE 20 MEQ TABLET.ER PO (09:49)
[2022-11-14] MEDS: CYANOCOBALAMIN 1,000 MCG TABLET 1000 MCG PO (09:49)
[2022-11-14] MEDS: FOLIC ACID 1 MG TABLET PO (09:49)
[2022-11-14] MEDS: predniSONE 20 MG TABLET 60 MG PO (09:49)
[2022-11-14] MEDS: GABAPENTIN 100 MG CAPSULE PO ×3 (09:49→18:31)
[2022-11-14] MEDS: PANTOPRAZOLE 40 MG TABLET PO ×2 (09:50→21:33)
[2022-11-14] MEDS: THIAMINE HCL 200 MG/2 ML VIAL 100 MG IV PUSH (09:50)
[2022-11-14] MEDS: FERROUS SULFATE 324 MG TABLET PO ×2 (09:50→18:31)
[2022-11-14] MEDS: CLOPIDOGREL BISULFATE 75 MG TABLET PO (09:50)
[2022-11-14] MEDS: MEGESTROL ACETATE (*CHEMO) ORAL SUSP 40 MG/ML SYR 400 MG PO ×2 (09:50→18:31)
[2022-11-14 12:42] LABS: Glucose Point of Care 129 mg/dl (65-105)
--- NOTE | 2022-11-14 15:19 | PM.IMPN ---
Progress Note: A&P Assessment and Plan (1) Seizure: Code(s): R56.9 - Unspecified convulsions Status: Acute Assessment and Plan: -Patient and his brother in law were in and drive through with [id number] noted that the patient had some tonic clonic convulsions and brought him to the ER on 11/09 -patient has not had any seizure activity since then -he was found to have a sodium level of 120 and was given 3% saline ER -sodium level on 11/14/2022 is 136. -continue seizure precautions -could be related to alcohol intoxication and?withdrawal -continue to monitor EEG 11/12 This is an abnormal EEG due to the absence of well-developed posterior dominant rhythm. This finding can be seen in the setting of mild encephalopathy. There are no electrographic seizures or epileptiform features noted during the recording. Clinical correlation is recommended -neurology consulted due to mild encephalopathy -on exam patient was unable to answer questions such as orientation to self, place and time. (2) Hyponatremia: Code(s): E87.1 - Hypo-osmolality and hyponatremia Status: Acute Assessment and Plan: -Hyponatremia, sodium levels of 120, patient has a history of chronic hyponatremia and has been treated in the hospital and the past, -nephrology following and managing -sodium improved and stable -likely secondary to chronic alcoholism too (3) Alcohol dependence: Code(s): F10.20 - Alcohol dependence, uncomplicated Status: Acute Assessment and Plan: -Continue to monitor for withdrawals -continue folic acid and thiamine -continue Librium at low-dose.? Likely discharged on taper -CIWA protocol, p.r.n. Ativan ordered but patient has not been requiring -CIWA score today is 2 -Counseled patient on cessation of alcohol and possibly getting some rehab (4) Tobacco dependence: Code(s): F17.200 - Nicotine dependence, unspecified, uncomplicated Status: Acute Assessment and Plan: Nicotine patches knee (5) Hypothyroidism: Code(s): E03.9 - Hypothyroidism, unspecified Status: Acute Assessment and Plan: Continue levothyroxine (6) Hypokalemia: Code(s): E87.6 - Hypokalemia Status: Acute Assessment and Plan: Potassium stable (7) UTI (urinary tract infection): Code(s): N39.0 - Urinary tract infection, site not specified Status: Acute Assessment and Plan: UA positive for UTI Urine culture grew multi-drug resistant E coli Cefepime sensitive, continue on current medication regimen (8) COPD exacerbation: Code(s): J44.1 - Chronic obstructive pulmonary disease with (acute) exacerbation Status: Acute Assessment and Plan: Patient started on short course of prednisone 60mg x 5 days. Patient on day 3 of 5. Bronchodilator continued Time Spent With Patient Time with patient: Greater than 35 minutes Subjective Date/time seen: 11/14/22 15:19 Interval history: 57-year-old male with history of alcohol abuse, COPD, CHF and hypertension. Patient admitted to hospital due to alcohol withdrawal with DTs. Patient was seen today and appeared very lethargic during interview. Patient unable to answer any my questions. Patient did mumble but he was not able to be understood. Review of Systems Review of Systems: ROS unobtainable: Yes unobtainable due to mental status Exam Narrative: GENERAL: Comfortable, no acute distress, lethargic, anorexic appearing HENMT: moist mucous membranes, poor dentition EYES: EOM intact b/l, PERRL NECK: no lymphadenopathy RESPIRATORY: clear to auscultation CARDIO: RRR GI: soft, nontender, bowel sounds present SKIN: no rashes EXTREMITIES: no edema, redness or tenderness NEURO: Patient unable to answer questions related to orientation of self, situation, place and time Objective Data Vital Signs Vital Signs: Vital Signs - 24 hr 11/13/22 16:00 11/13/22 16:00 11/13/22 15:49 Tempera
--- NOTE | 2022-11-14 17:30 | P.PNNP_ITS ---
Progress Note: A&P Assessment and Plan (1) Hyponatremia: Code(s): E87.1 - Hypo-osmolality and hyponatremia Status: Chronic Assessment and Plan: * acute on chronic * sodium 132mmol/L about 2 months ago * chronicity due to: * tobacco use/lung disease * possible PPI use * on/off alcohol intake * nutrition issues * previous CVAs(?) * acute insult from: * binge alcohol intake * pre-renal factors * poor oral intake * s/p 3%% saline due to #2 * sodium 120 on admit 11/09 at 1550 127 / at 4am 132 11/10 at 10am 127 11/10 at 9pm 130 11/11 at 31m 134 11/12 430am 133 11/13 313am 136 11/14 in am on fluid restriction. (2) Seizure: Code(s): R56.9 - Unspecified convulsions Status: Acute Assessment and Plan: * suspected by tonic-clonic movements prior to arrival/admission * no further seizure activity since admission * suspected to be potentiated by hyponatremia; however could be related to alcohol use (intoxication versus withdrawal) as well * s/p 3% saline x 1 on admission * continue supportive therapy (3) Hypokalemia: Code(s): E87.6 - Hypokalemia Status: Acute Assessment and Plan: * resolved. (4) UTI (urinary tract infection): Code(s): N39.0 - Urinary tract infection, site not specified Status: Acute Assessment and Plan: * urine culture results with E.coli * on Cefepime (5) Alcohol dependence: Code(s): F10.20 - Alcohol dependence, uncomplicated Status: Acute Assessment and Plan: * on thiamine and folate * monitor for withdrawal symptoms Subjective Date/time seen: 11/14/22 07:30 Interval history: the patient is awake today. less conversive this morning. ate some yesterday. Exam Narrative: General: WD/WN male in NAD Heart: normal S1 and S2; no rub Lungs: clear to auscultation Abdomen: soft, nontender, nondistended, positive bowel sounds Extremities: no cyanosis or clubbing; no edema Skin: no rash Objective Data Vital Signs Vital Signs: Vital Signs - 24 hr 11/13/22 20:48 11/13/22 20:00 11/13/22 20:00 Temperature Pulse Rate 79 74 Pulse Rate [Apical Monitor] Pulse Rate [Bilateral Pedal (Dorsalis Pedis) Palpation] Respiratory Rate Blood Pressure Pulse Oximetry Oxygen Delivery Room Air 11/13/22 23:52 11/14/22 00:00 11/14/22 00:00 Temperature 96.9 F L Pulse Rate 79 69 Pulse Rate [Apical Monitor] Pulse Rate [Bilateral Pedal (Dorsalis Pedis) Palpation] 79 Respiratory Rate 12 Blood Pressure 88/61 L Pulse Oximetry 90 Oxygen Delivery 11/14/22 06:00 11/14/22 06:26 11/14/22 09:50 Temperature 97.6 F Pulse Rate 71 67 Pulse Rate [Apical Monitor] Pulse Rate [Bilateral Pedal (Dorsalis Pedis) Palpation] Respiratory Rate 18 Blood Pressure 91/73 L Pulse Oximetry 93 Oxygen Delivery Room Air 11/14/22 08:00 11/14/22 08:00 11/14/22 12:00 Temperature Pulse Rate 69 75 Pulse Rate [Apical Monitor] 70
--- NOTE | 2022-11-14 17:30 | PM.PNNEP ---
Progress Note: A&P Assessment and Plan (1) Hyponatremia: Code(s): E87.1 - Hypo-osmolality and hyponatremia Status: Chronic Assessment and Plan: acute on chronic sodium 132mmol/L about 2 months ago chronicity due to: tobacco use/lung disease possible PPI use on/off alcohol intake nutrition issues previous CVAs(?) acute insult from: binge alcohol intake pre-renal factors poor oral intake s/p 3%% saline due to #2 sodium 120 on admit 11/09 at 1550 127 12/ at 4am 132 12/17 at 10am 127 12/17 at 9pm 130 12/18 at 31m 134 11/12 430am 133 11/13 313am 136 11/14 in am on fluid restriction. (2) Seizure: Code(s): R56.9 - Unspecified convulsions Status: Acute Assessment and Plan: suspected by tonic-clonic movements prior to arrival/admission no further seizure activity since admission suspected to be potentiated by hyponatremia; however could be related to alcohol use (intoxication versus withdrawal) as well s/p 3% saline x 1 on admission continue supportive therapy (3) Hypokalemia: Code(s): E87.6 - Hypokalemia Status: Acute Assessment and Plan: resolved. (4) UTI (urinary tract infection): Code(s): N39.0 - Urinary tract infection, site not specified Status: Acute Assessment and Plan: urine culture results with E.coli on Cefepime (5) Alcohol dependence: Code(s): F10.20 - Alcohol dependence, uncomplicated Status: Acute Assessment and Plan: on thiamine and folate monitor for withdrawal symptoms Subjective Date/time seen: 11/14/22 07:30 Interval history: the patient is awake today. less conversive this morning. ate some yesterday. Exam Narrative: General: WD/WN male in NAD Heart: normal S1 and S2; no rub Lungs: clear to auscultation Abdomen: soft, nontender, nondistended, positive bowel sounds Extremities: no cyanosis or clubbing; no edema Skin: no rash Objective Data Vital Signs Vital Signs: Vital Signs - 24 hr 11/13/22 20:48 11/13/22 20:00 11/13/22 20:00 Temperature Pulse Rate 79 74 Pulse Rate [Apical Monitor] Pulse Rate [Bilateral Pedal (Dorsalis Pedis) Palpation] Respiratory Rate Blood Pressure Pulse Oximetry Oxygen Delivery Room Air 11/13/22 23:52 11/14/22 00:00 11/14/22 00:00 Temperature 96.9 F L Pulse Rate 79 69 Pulse Rate [Apical Monitor] Pulse Rate [Bilateral Pedal (Dorsalis Pedis) Palpation] 79 Respiratory Rate 12 Blood Pressure 88/61 L Pulse Oximetry 90 Oxygen Delivery 11/14/22 06:00 11/14/22 06:26 11/14/22 09:50 Temperature 97.6 F Pulse Rate 71 67 Pulse Rate [Apical Monitor] Pulse Rate [Bilateral Pedal (Dorsalis Pedis) Palpation] Respiratory Rate 18 Blood Pressure 91/73 L Pulse Oximetry 93 Oxygen Delivery Room Air 11/14/22 08:00 11/14/22 08:00 11/14/22 12:00 Temperature Pulse Rate 69 75 Pulse Rate [Apical Monitor] 70 Pulse Rate [Bilateral Pedal (Dorsalis Pedis) Palpation] Respiratory Rate Blood Pressure Pulse Oximetry Oxygen Delivery 11/14/22 12:00 11/14/22 16:00 Temperature Pulse Rate 88 Pulse Rate [Apical Monitor] 76 Pulse Rate [Bilateral Pedal (Dorsalis Pedis) Palpation] Respiratory Rate Blood Pressure Pulse Oximetry Oxygen Delivery Intake/Output Intake/Output: Intake & Output 11/11/22 11/12/22 11/13/22 11/14/22 23:59 23:59 23:59 23:59 Intake Total 363 165 9409 3073.2 Output Total 650 Balance 722 751 7655 3073.2 Meds/Results Medications: Active Medications Generic Name Dose Route Start Last Admin Trade Name Tegan PRN Reason Stop Dose Admin Acetaminophen 650 mg 11/10/22 08:47 11/10/22 09:56 Acetaminophen 325 Mg Tablet PO 650 mg Q6H PRN Administration Mild Pain (1-3) or Fever Albuterol 2.5 mg 11/09/22 21:54 Albuterol Sulfate Neb 2.5
[2022-11-14] MEDS: ATORVASTATIN 20 MG TABLET PO (21:33)
[2022-11-15] VITALS (10 sets, daily range): BP systolic 92–103; BP diastolic 72–73; PULSE 60–83; RESP 14–16; TEMP 36.3–37.1; O2SAT 91–100
[2022-11-15] MEDS: LEVOTHYROXINE SODIUM 25 MCG TABLET PO (05:35)
[2022-11-15] MEDS: chlordiazePOXIDE (*CRX) 25 MG CAPSULE PO (05:35)
[2022-11-15 06:39] LABS: Hemoglobin 10.1 g/dL (14.0-18.0); Mean Corpuscular HGB Conc 33.7 g/dl (32-36); Mean Corpuscular Hemoglobin 34.6 pg (26-34); Mean Corpuscular Volume 102.7 fl (80-100); Mean Platelet Volume 11.3 fl (7.4-10.4); Platelet Count Result 127 k/mm3 (150-375); Red Blood Count 2.92 M/mm3 (4.6-6.20); Red Cell Distribution Width 19.1 % (11.5-14.5); White Blood Count 8.6 K/mm3 (4.5-10.0)
[2022-11-15 07:00] LABS: Alanine Aminotransferase 19 U/L (6-50); Alkaline Phosphatase 79 U/L (38-126); Anion Gap 2 mmol/L (8-16); Aspartate Amino Transferase 29 U/L (17-59); Bilirubin,Total 0.5 mg/dL (0.2-1.3); Blood Urea Nitrogen 27 mg/dL (9-20); Calcium 8.1 mg/dL (8.4-10.2); Carbon Dioxide 32 mmol/L (22-30); Chloride 103 mmol/L (98-107); Estimated CRCL calculation 67 ml/min; Estimated Glomerular Filt Rate > 60; Glucose 131 mg/dL (65-110); Magnesium 2.5 mg/dL (1.6-2.3); Phosphorus 2.9 mg/dL (2.5-4.5); Potassium 5.1 mmol/L (3.4-5.0); Sodium 137 mmol/L (137-145)
[2022-11-15 07:49] LABS: Folic Acid 18.5 ng/mL (2.76->20)
[2022-11-15 08:05] LABS: Kappa\\Lambda Light Chains 0.85 (0.26-1.65); Lambda Light Chain 40.5 mg/L (5.7-26.3)
[2022-11-15] MEDS: NICOTINE (*PBKC) 21 MG PATCH 1 PATCH TRANSDERM (09:31)
[2022-11-15] MEDS: predniSONE 20 MG TABLET 60 MG PO (09:32)
[2022-11-15] MEDS: THIAMINE HCL 200 MG/2 ML VIAL 100 MG IV PUSH (09:32)
[2022-11-15] MEDS: PANTOPRAZOLE 40 MG TABLET PO ×2 (09:32→20:31)
[2022-11-15] MEDS: GABAPENTIN 100 MG CAPSULE PO (09:32)
[2022-11-15] MEDS: POTASSIUM CHLORIDE 20 MEQ TABLET.ER PO (09:32)
[2022-11-15] MEDS: CLOPIDOGREL BISULFATE 75 MG TABLET PO (09:32)
[2022-11-15] MEDS: CYANOCOBALAMIN 1,000 MCG TABLET 1000 MCG PO (09:33)
[2022-11-15] MEDS: DOCUSATE SODIUM 100 MG CAPSULE PO ×2 (09:33→20:31)
[2022-11-15] MEDS: FERROUS SULFATE 324 MG TABLET PO (09:33)
[2022-11-15] MEDS: MEGESTROL ACETATE (*CHEMO) ORAL SUSP 40 MG/ML SYR 400 MG PO (09:33)
[2022-11-15] MEDS: FOLIC ACID 1 MG TABLET PO (09:33)
[2022-11-15] MEDS: METOPROLOL TARTRATE 12.5 MG TABLET PO ×2 (09:33→20:31)
--- NOTE | 2022-11-15 12:23 | WPDNEURCNPN ---
Assessment and Plan Assessment and plan (1) Hyponatremia: Code(s): E87.1 - Hypo-osmolality and hyponatremia Status: Chronic (2) Seizure: Code(s): R56.9 - Unspecified convulsions Status: Acute (3) Alcohol withdrawal seizure: Code(s): F10.939 - Alcohol use, unspecified with withdrawal, unspecified; R56.9 - Unspecified convulsions Status: Acute (4) Protein calorie malnutrition: Code(s): E46 - Unspecified protein-calorie malnutrition Status: Acute (5) Chronic anemia: Code(s): D64.9 - Anemia, unspecified Status: Acute Plan 1. Alcohol related seizures 2. Chronic hyponatremia with present sodium level only 120 on admission 3. All the charts are reviewed patient needs to be continue the treatment as being done Consult date: 11/15/22 HPI: Simon Ortiz Madi Marquis is a 57 year old male admitted to the hospital through the emergency room with past medical history of alcohol abuse disorder in addition to the history of seizure while in [facility] parking lot on initial evaluation he was found to be postictal by his brother In-law who reported the patient began to have generalized convulsion and became unresponsive though he has never had any seizures before and his last drink of alcohol was 6 months prior to the arrival. Patient had been taking levothyroxine 25 mcg/ml bleed day in addition to pantoprazole 40 mg b.i.d.. He does have history of alcohol independent with cerebrovascular accident in the past resulting in the left-sided residual weakness along with the history of chronic hyponatremia hypertension hypothyroidism protein calorie malnutrition and the most recent echocardiogram in was unremarkable. Does have ongoing history of smoking packs per day 1 20 cigarettes per years smoked 35 and former alcohol intake of 4 drinks per week. His cervical CT scan is compatible with positional straightening of the normal cervical lordosis with moderate spondylosis and a small indeterminate lytic lesion in C5 vertebral body which could be benign in addition to mild emphysema. CT scan of the head was negative for acute bleed there are multiple old infarcts largest in the left occipital lobe with diffuse volume loss he was noted to have encephalomalacia in the chronic left occipital lobe infarct and also small infarct in the right occipital lobe Review of Systems Review of Systems: All systems reviewed & are unremarkable except as noted in HPI and below [facility] Past Medical History Medical History (Updated 11/12/22 @ 11:20 by Guilherme Dumont MD) Acute GI bleeding Acute ischemic stroke Adult failure to thrive Alcohol dependence Cerebrovascular accident With left-sided residual weakness. Chronic anemia Chronic hyponatremia Congestive heart failure Echocardiogram on 07/17/2021 showed normal LV chamber dimension and function with an estimated EF of 65 to 70% and grade 1 diastolic dysfunction with mild pulmonary hypertension estimated pulmonary arterial systolic pressure of 37 mmHg. COVID (08/2021) DVT prophylaxis Gastroesophageal reflux disease Generalized weakness HCAP (healthcare-associated pneumonia) Hypertension Hypokalemia Hypothyroidism Orthostatic hypotension Pneumonia Protein calorie malnutrition Rectal bleeding Sepsis Stroke Tobacco dependence Unwitnessed fall Urinary tract infection UTI (urinary tract infection) Surgical History Surgical History History of excision of testicular mass With benign histology. Family History Family History Father Chronic obstructive pulmonary disease Congestive heart failure Hypertension Mother Abdominal aortic aneurysm rupture Daughter Type 1 diabetes mellitus Social History Social History (Updated 11/09/22 @ 21:34 by Hannah Rogers NP) Social History: The patient lives with his
[2022-11-15 13:15] LABS: Chloride Rand Ur 23 mmol/L (32-290); Chloride/Creatinine Rand Ur 20 (23-275); Creatinine Random Urine 113 mg/dL (20-320)
--- NOTE | 2022-11-15 15:00 | PM.IMPN ---
Progress Note: A&P Assessment and Plan (1) Seizure: Code(s): R56.9 - Unspecified convulsions Status: Acute Assessment and Plan: -Patient and his brother in law were in and drive through with [id number] noted that the patient had some tonic clonic convulsions and brought him to the ER on 11/09 -patient has not had any seizure activity since then -he was found to have a sodium level of 120 and was given 3% saline ER -sodium level on 11/14/2022 is 136. -continue seizure precautions -could be related to alcohol intoxication and?withdrawal -continue to monitor EEG 11/12 This is an abnormal EEG due to the absence of well-developed posterior dominant rhythm. This finding can be seen in the setting of mild encephalopathy. There are no electrographic seizures or epileptiform features noted during the recording. Clinical correlation is recommended -neurology consulted due to mild encephalopathy enter following the patient -on exam patient was able to answer who he was, why he was here and the time of year. But unable to stay where he was. -plan on discharge tomorrow pending no complications. Patient planned to be discharged into rehab facility. (2) Hyponatremia: Code(s): E87.1 - Hypo-osmolality and hyponatremia Status: Acute Assessment and Plan: -Hyponatremia, sodium levels of 120, patient has a history of chronic hyponatremia and has been treated in the hospital and the past, -nephrology following and managing -sodium improved and stable -likely secondary to chronic alcoholism too -nephrology involved in patient's care (3) Alcohol dependence: Code(s): F10.20 - Alcohol dependence, uncomplicated Status: Acute Assessment and Plan: -Continue to monitor for withdrawals -continue folic acid and thiamine -continue Librium at low-dose.? Likely discharged on taper -CIWA protocol, p.r.n. Ativan ordered but patient has not been requiring -CIWA score today is 2 -Counseled patient on cessation of alcohol and possibly getting some rehab (4) Tobacco dependence: Code(s): F17.200 - Nicotine dependence, unspecified, uncomplicated Status: Acute Assessment and Plan: Nicotine patches knee (5) Hypothyroidism: Code(s): E03.9 - Hypothyroidism, unspecified Status: Acute Assessment and Plan: Continue levothyroxine (6) Hypokalemia: Code(s): E87.6 - Hypokalemia Status: Acute Assessment and Plan: Potassium stable (7) UTI (urinary tract infection): Code(s): N39.0 - Urinary tract infection, site not specified Status: Acute Assessment and Plan: UA positive for UTI Urine culture grew multi-drug resistant E coli Cefepime sensitive, continue on current medication regimen Patient has continued cefepime for a total of 5 days out of 7 day treatment (8) COPD exacerbation: Code(s): J44.1 - Chronic obstructive pulmonary disease with (acute) exacerbation Status: Acute Assessment and Plan: Patient started on short course of prednisone 60mg x 5 days. Patient on day 3 of 5. Bronchodilator continued Time Spent With Patient Time with patient: Greater than 35 minutes Subjective Date/time seen: 11/15/22 15:00 Interval history: 57-year-old male with history of alcohol abuse, COPD, CHF and hypertension.? Patient admitted to hospital due to alcohol withdrawal with DTs.? Patient was seen today and appeared very lethargic during interview.? Patient is able to answer most of my questions although he is slow to answer them in definitely has some mild confusion. Patient's POA was with us during the interview. Patient denied chest pain, shortness a breath, nausea, vomiting and fever. Patient does state that he has dizziness and that that is common for him. Review of Systems Review of Systems: All systems reviewed & are unremarkable except as noted in HPI and below Exam Narrative: GENERAL: Comfortable, no acute dis
[2022-11-15 20:18] LABS: Creatinine, Random Urine 109 mg/dL (20-320); Total Protein/Creatinine Ratio 367 mg/g creat (25-148)
[2022-11-15] MEDS: ATORVASTATIN 20 MG TABLET PO (20:31)
[2022-11-16] VITALS (11 sets, daily range): BP systolic 91–104; BP diastolic 63–79; PULSE 59–84; RESP 14–20; TEMP 36.4–36.9; O2SAT 94–99
[2022-11-16] MEDS: chlordiazePOXIDE (*CRX) 25 MG CAPSULE PO ×2 (00:11→06:10)
[2022-11-16] MEDS: LEVOTHYROXINE SODIUM 25 MCG TABLET PO (06:10)
--- NOTE | 2022-11-16 08:41 | PM.IMPN ---
Progress Note: A&P Assessment and Plan (1) Seizure: Code(s): R56.9 - Unspecified convulsions Status: Acute Assessment and Plan: -Patient and his brother in law were in and drive through with [id number] noted that the patient had some tonic clonic convulsions and brought him to the ER on 11/09 -patient has not had any seizure activity since then -he was found to have a sodium level of 120 and was given 3% saline ER -sodium level on 11/14/2022 is 136. -continue seizure precautions -could be related to alcohol intoxication and?withdrawal -continue to monitor -EEG on 11/12 This is an abnormal EEG due to the absence of well-developed posterior dominant rhythm. This finding can be seen in the setting of mild encephalopathy. There are no electrographic seizures or epileptiform features noted during the recording. Clinical correlation is recommended -neurology consulted due to mild encephalopathy and did not recommend any additional treatment for this. -on exam patient was able to answer who he was, why he was here and the time of year. But unable to stay where he was. -plan on discharge tomorrow pending no complications. Patient planned to be discharged into rehab facility. -Librium discontinued on 11/16/2022. Monitoring patient closely with CIWA score. -Patient plans to be discharged to rehab facility once he is no longer taking Librium. -started patient on 500 mg thiamine x3 days -plan on discharge tomorrow (2) Hyponatremia: Code(s): E87.1 - Hypo-osmolality and hyponatremia Status: Acute Assessment and Plan: -Hyponatremia, sodium levels on admission of 120, patient has a history of chronic hyponatremia and has been treated in the hospital and the past, -nephrology following and managing -sodium improved and stable -likely secondary to chronic alcoholism too -nephrology involved in patient's care (3) Alcohol dependence: Code(s): F10.20 - Alcohol dependence, uncomplicated Status: Acute Assessment and Plan: -Continue to monitor for withdrawals -continue folic acid and thiamine -continue Librium at low-dose.? Likely discharged on taper -CIWA protocol, p.r.n. Ativan ordered but patient has not been requiring -CIWA score today is 0 -Counseled patient on cessation of alcohol and possibly getting some rehab (4) Tobacco dependence: Code(s): F17.200 - Nicotine dependence, unspecified, uncomplicated Status: Acute Assessment and Plan: Nicotine patches knee (5) Hypothyroidism: Code(s): E03.9 - Hypothyroidism, unspecified Status: Acute Assessment and Plan: Continue levothyroxine (6) Hypokalemia: Code(s): E87.6 - Hypokalemia Status: Acute Assessment and Plan: Potassium stable (7) UTI (urinary tract infection): Code(s): N39.0 - Urinary tract infection, site not specified Status: Acute Assessment and Plan: UA positive for UTI Urine culture grew multi-drug resistant E coli Cefepime sensitive, continue on current medication regimen Patient has continued cefepime for a total of 6 days out of 7 day treatment (8) COPD exacerbation: Code(s): J44.1 - Chronic obstructive pulmonary disease with (acute) exacerbation Status: Acute Assessment and Plan: Patient started on short course of prednisone 60mg x 5 days. Patient on day 3 of 5. Bronchodilator continued Subjective Date/time seen: 11/16/22 08:41 Interval history: 57-year-old male with history of alcohol abuse, COPD, CHF and hypertension.? Patient admitted to hospital due to alcohol withdrawal with DTs.? Patient was seen today and appeared very lethargic during interview.? Patient is able to answer most of my questions although he is slow to answer them in definitely has some mild confusion. Patient's POA was with us during the interview. Patient denied chest pain, shortness a breath, nausea, vomiting and fever. Patient does state that
[2022-11-16 08:48] LABS: Hematocrit 29.5 % (42.0-52.0); Hemoglobin 9.7 g/dL (14.0-18.0); Mean Corpuscular HGB Conc 32.9 g/dl (32-36); Mean Corpuscular Volume 106.5 fl (80-100); Mean Platelet Volume 10.3 fl (7.4-10.4); Platelet Count Result 187 k/mm3 (150-375); Red Blood Count 2.77 M/mm3 (4.6-6.20); Red Cell Distribution Width 19.9 % (11.5-14.5); White Blood Count 9.6 K/mm3 (4.5-10.0)
[2022-11-16] MEDS: predniSONE 20 MG TABLET 60 MG PO (09:00)
[2022-11-16] MEDS: POTASSIUM CHLORIDE 20 MEQ TABLET.ER PO (09:00)
[2022-11-16] MEDS: METOPROLOL TARTRATE 12.5 MG TABLET PO ×2 (09:01→21:00)
[2022-11-16] MEDS: PANTOPRAZOLE 40 MG TABLET PO ×2 (09:01→21:00)
[2022-11-16] MEDS: GABAPENTIN 100 MG CAPSULE PO ×3 (09:01→17:01)
[2022-11-16] MEDS: MEGESTROL ACETATE (*CHEMO) ORAL SUSP 40 MG/ML SYR 400 MG PO ×2 (09:01→17:00)
[2022-11-16] MEDS: CLOPIDOGREL BISULFATE 75 MG TABLET PO (09:01)
[2022-11-16] MEDS: FERROUS SULFATE 324 MG TABLET PO ×2 (09:02→17:01)
[2022-11-16] MEDS: CYANOCOBALAMIN 1,000 MCG TABLET 1000 MCG PO (09:02)
[2022-11-16] MEDS: FOLIC ACID 1 MG TABLET PO (09:02)
[2022-11-16] MEDS: THIAMINE HCL 200 MG/2 ML VIAL 100 MG IV PUSH (09:02)
[2022-11-16] MEDS: NICOTINE (*PBKC) 21 MG PATCH 1 PATCH TRANSDERM (09:02)
[2022-11-16] MEDS: DOCUSATE SODIUM 100 MG CAPSULE PO ×2 (09:02→21:00)
[2022-11-16 09:12] LABS: Alanine Aminotransferase 18 U/L (6-50); Alkaline Phosphatase 70 U/L (38-126); Anion Gap 2 mmol/L (8-16); Aspartate Amino Transferase 25 U/L (17-59); Bilirubin,Total 0.3 mg/dL (0.2-1.3); Blood Urea Nitrogen 20 mg/dL (9-20); Calcium 8.1 mg/dL (8.4-10.2); Carbon Dioxide 32 mmol/L (22-30); Chloride 103 mmol/L (98-107); Estimated CRCL calculation 66 ml/min; Estimated Glomerular Filt Rate > 60; Glucose 105 mg/dL (65-110); Magnesium 2.3 mg/dL (1.6-2.3); Phosphorus 2.6 mg/dL (2.5-4.5); Potassium 4.4 mmol/L (3.4-5.0); Sodium 137 mmol/L (137-145)
[2022-11-16] MEDS: ACETAMINOPHEN 325 MG TABLET 650 MG PO (10:34)
--- NOTE | 2022-11-16 10:51 | PCNWS ---
Weekly nutritional screen. Patient is tolerating current heart healthy diet with adequate intake at 75-100%. No weight loss reported. No nutritional needs at this time.
[2022-11-16 13:29] LABS: Glucose Point of Care 177 mg/dl (65-105)
[2022-11-16] MEDS: THIAMINE 500 MG/NS 100 ML 500 MG/100 ML BAG 200 MG IVPB (14:54)
[2022-11-16 19:04] LABS: Glucose Point of Care 147 mg/dl (65-105)
[2022-11-16] MEDS: ATORVASTATIN 20 MG TABLET PO (21:00)
--- NOTE | 2022-11-16 22:30 | P.PNNP_ITS ---
Progress Note: A&P Assessment and Plan (1) Hyponatremia: Code(s): E87.1 - Hypo-osmolality and hyponatremia Status: Chronic Assessment and Plan: * acute on chronic * sodium 132mmol/L about 2 months ago * chronicity due to: * tobacco use/lung disease * possible PPI use * on/off alcohol intake * nutrition issues * previous CVAs(?) * acute insult from: * binge alcohol intake * pre-renal factors * poor oral intake * s/p 3%% saline due to #2 * sodium 120 on admit 11/09 at 1550 127 11/10 at 4am 132 11/10 at 10am 127 11/10 at 9pm 130 11/11 at 31m 134 11/12 430am 133 11/13 313am 136 11/14 in am now normal D/C fluid restriction Renal will sign off. Thank you for allowing us to participate in the care of your patient (2) Seizure: Code(s): R56.9 - Unspecified convulsions Status: Acute Assessment and Plan: * suspected by tonic-clonic movements prior to arrival/admission * no further seizure activity since admission * suspected to be potentiated by hyponatremia; however could be related to alcohol use (intoxication versus withdrawal) as well * s/p 3% saline x 1 on admission * continue supportive therapy (3) Hypokalemia: Code(s): E87.6 - Hypokalemia Status: Acute Assessment and Plan: * resolved. (4) UTI (urinary tract infection): Code(s): N39.0 - Urinary tract infection, site not specified Status: Acute Assessment and Plan: * urine culture results with E.coli * on Cefepime (5) Alcohol dependence: Code(s): F10.20 - Alcohol dependence, uncomplicated Status: Acute Assessment and Plan: * on thiamine and folate * monitor for withdrawal symptoms Subjective Date/time seen: 11/16/22 22:30 Interval history: the patient is awake today. complaining of weakness Exam Narrative: General: WD/WN male in NAD Heart: normal S1 and S2; no rub Lungs: clear Abdomen: soft, nontender, nondistended, positive bowel sounds Extremities: no cyanosis or clubbing; no edema Skin: no rash or sq nodules Objective Data Vital Signs Vital Signs: Vital Signs - 24 hr 11/16/22 05:06 11/16/22 04:00 11/16/22 00:00 Temperature 97.6 F Pulse Rate 70 62 62 Respiratory Rate 14 Blood Pressure 104/79 Pulse Oximetry 94 Oxygen Delivery 11/16/22 09:01 11/16/22 09:00 11/16/22 08:00 Temperature Pulse Rate 77 60 Respiratory Rate Blood Pressure Pulse Oximetry Oxygen Delivery Room Air 11/16/22 12:00 11/16/22 16:00 11/16/22 14:00 Temperature 98.5 F Pulse Rate 59 L 73 78 Respiratory Rate 20 Blood Pressure 91/63 L Pulse Oximetry 95 Oxygen Delivery 11/16/22 21:00 Temperature Pulse Rate 84 Respiratory Rate Blood Pressure Pulse Oximetry Oxygen Delivery Intake/Output Intake/Output: Intake & Output 11/13/22 11/14/22 11/15/22 11/16/22 23:59 23:59 23:59 23:59 Intake Total 1330 4065.2 950 1490
--- NOTE | 2022-11-16 22:30 | PM.PNNEP ---
Progress Note: A&P Assessment and Plan (1) Hyponatremia: Code(s): E87.1 - Hypo-osmolality and hyponatremia Status: Chronic Assessment and Plan: acute on chronic sodium 132mmol/L about 2 months ago chronicity due to: tobacco use/lung disease possible PPI use on/off alcohol intake nutrition issues previous CVAs(?) acute insult from: binge alcohol intake pre-renal factors poor oral intake s/p 3%% saline due to #2 sodium 120 on admit 11/09 at 1550 127 12 at 4am 132 11/10 at 10am 127 /17 at 9pm 130 11/11 at 31m 134 11/12 430am 133 11/13 313am 136 11/14 in am now normal D/C fluid restriction Renal will sign off. Thank you for allowing us to participate in the care of your patient (2) Seizure: Code(s): R56.9 - Unspecified convulsions Status: Acute Assessment and Plan: suspected by tonic-clonic movements prior to arrival/admission no further seizure activity since admission suspected to be potentiated by hyponatremia; however could be related to alcohol use (intoxication versus withdrawal) as well s/p 3% saline x 1 on admission continue supportive therapy (3) Hypokalemia: Code(s): E87.6 - Hypokalemia Status: Acute Assessment and Plan: resolved. (4) UTI (urinary tract infection): Code(s): N39.0 - Urinary tract infection, site not specified Status: Acute Assessment and Plan: urine culture results with E.coli on Cefepime (5) Alcohol dependence: Code(s): F10.20 - Alcohol dependence, uncomplicated Status: Acute Assessment and Plan: on thiamine and folate monitor for withdrawal symptoms Subjective Date/time seen: 11/16/22 22:30 Interval history: the patient is awake today. complaining of weakness Exam Narrative: General: WD/WN male in NAD Heart: normal S1 and S2; no rub Lungs: clear Abdomen: soft, nontender, nondistended, positive bowel sounds Extremities: no cyanosis or clubbing; no edema Skin: no rash or sq nodules Objective Data Vital Signs Vital Signs: Vital Signs - 24 hr 11/16/22 05:06 11/16/22 04:00 11/16/22 00:00 Temperature 97.6 F Pulse Rate 70 62 62 Respiratory Rate 14 Blood Pressure 104/79 Pulse Oximetry 94 Oxygen Delivery 11/16/22 09:01 11/16/22 09:00 11/16/22 08:00 Temperature Pulse Rate 77 60 Respiratory Rate Blood Pressure Pulse Oximetry Oxygen Delivery Room Air 11/16/22 12:00 11/16/22 16:00 11/16/22 14:00 Temperature 98.5 F Pulse Rate 59 L 73 78 Respiratory Rate 20 Blood Pressure 91/63 L Pulse Oximetry 95 Oxygen Delivery 11/16/22 21:00 Temperature Pulse Rate 84 Respiratory Rate Blood Pressure Pulse Oximetry Oxygen Delivery Intake/Output Intake/Output: Intake & Output 11/13/22 11/14/22 11/15/22 11/16/22 23:59 23:59 23:59 23:59 Intake Total 1330 4065.2 950 1490 Output Total 250 0 300 Balance 1330 3815.2 950 1190 Meds/Results Medications: Active Medications Generic Name Dose Route Start Last Admin Trade Name Freq PRN Reason Stop Dose Admin Acetaminophen 650 mg 11/10/22 08:47 11/16/22 10:34 Acetaminophen 325 Mg Tablet PO 650 mg Q6H PRN Administration Mild Pain (1-3) or Fever Albuterol 2.5 mg 11/09/22 21:54 Albuterol Sulfate Neb 2.5 Mg/3 Ml Inh INHALATION Q6HRT PRN Shortness Of Breath Atorvastatin Calcium 20 mg 11/09/22 21:55 11/16/22 21:00 Atorvastatin 20 Mg Tablet PO 20 mg HS NESSA Administration Bisacodyl 10 mg 11/09/22 21:49 Bisacodyl 10 Mg Suppository RECTAL DAILY PRN Constipation Clopidogrel Bisulfate 75 mg 11/10/22 09:00 11/16/22 09:01 Clopidogrel Bisulfate 75 Mg Tablet PO 75 mg QAM NESSA Administration Cyanocobalamin 1,000 mcg 11/10/22 09:00 11/16/22 09:02 Cyanocobalamin 1,000 Mcg Tablet PO 1,000 mcg DAILY NESSA Administra
[2022-11-17] VITALS (8 sets, daily range): BP systolic 84–102; BP diastolic 54–78; PULSE 58–90; RESP 14–16; TEMP 36.6–37.3; O2SAT 95–96
[2022-11-17] MEDS: LEVOTHYROXINE SODIUM 25 MCG TABLET PO (06:35)
[2022-11-17 06:42] LABS: Glucose Point of Care 104 mg/dl (65-105)
[2022-11-17 06:46] LABS: Basophils Percent Auto 0.1 % (0.2-1.2); Eosinophils Percent Auto 0.2 % (0-4.4); Hematocrit 27.3 % (42.0-52.0); Hemoglobin 9.1 g/dL (14.0-18.0); Immature Granulocyte Percent A 1.2 % (0-0.5); Lymphocytes Absolute Auto 2.86 K/mm3 (0.9-3.2); Lymphocytes Percent Auto 33.5 % (18.3-44.2); Mean Corpuscular HGB Conc 33.3 g/dl (32-36); Mean Corpuscular Hemoglobin 35.4 pg (26-34); Mean Corpuscular Volume 106.2 fl (80-100); Mean Platelet Volume 9.5 fl (7.4-10.4); Monocytes Absolute Auto 1.2 K/mm3 (0.1-0.6); Monocytes Percent Auto 13.7 % (2.6-8.5); Neutrophils Absolute Auto 4.4 K/mm3 (1.3-6.7); Neutrophils Percent Auto 51.3 % (45.5-73.1); Platelet Count Result 209 k/mm3 (150-375); Red Blood Count 2.57 M/mm3 (4.6-6.20); Red Cell Distribution Width 20.2 % (11.5-14.5); White Blood Count 8.6 K/mm3 (4.5-10.0)
[2022-11-17 06:56] LABS: Alanine Aminotransferase 17 U/L (6-50); Albumin Level 2.7 g/dL (3.5-5.1); Alkaline Phosphatase 58 U/L (38-126); Anion Gap 1 mmol/L (8-16); Aspartate Amino Transferase 21 U/L (17-59); Bilirubin,Total 0.3 mg/dL (0.2-1.3); Blood Urea Nitrogen 18 mg/dL (9-20); Calcium 7.9 mg/dL (8.4-10.2); Carbon Dioxide 30 mmol/L (22-30); Chloride 104 mmol/L (98-107); Estimated CRCL calculation 73 ml/min; Estimated Glomerular Filt Rate > 60; Glucose 101 mg/dL (65-110); Magnesium 2.3 mg/dL (1.6-2.3); Phosphorus 3.1 mg/dL (2.5-4.5); Potassium 4.3 mmol/L (3.4-5.0); Sodium 135 mmol/L (137-145)
[2022-11-17 07:58] LABS: Macrocytosis 1+ (NORMAL); Platelet Estimate Adequate (Adequate)
[2022-11-17 07:59] LABS: Schistocytes None Seen (NORMAL)
[2022-11-17 08:10] LABS: Glucose Point of Care 138 mg/dl (65-105)
[2022-11-17] MEDS: DOCUSATE SODIUM 100 MG CAPSULE PO (08:26)
[2022-11-17] MEDS: FOLIC ACID 1 MG TABLET PO (08:26)
[2022-11-17] MEDS: FERROUS SULFATE 324 MG TABLET PO ×2 (08:26→16:05)
[2022-11-17] MEDS: NICOTINE (*PBKC) 21 MG PATCH 1 PATCH TRANSDERM (08:26)
[2022-11-17] MEDS: METOPROLOL TARTRATE 12.5 MG TABLET PO (08:26)
[2022-11-17] MEDS: predniSONE 20 MG TABLET 60 MG PO (08:26)
[2022-11-17] MEDS: CLOPIDOGREL BISULFATE 75 MG TABLET PO (08:26)
[2022-11-17] MEDS: CYANOCOBALAMIN 1,000 MCG TABLET 1000 MCG PO (08:26)
[2022-11-17] MEDS: POTASSIUM CHLORIDE 20 MEQ TABLET.ER PO (08:26)
[2022-11-17] MEDS: PANTOPRAZOLE 40 MG TABLET PO (08:26)
[2022-11-17] MEDS: GABAPENTIN 100 MG CAPSULE PO ×3 (08:26→16:05)
[2022-11-17] MEDS: MEGESTROL ACETATE (*CHEMO) ORAL SUSP 40 MG/ML SYR 400 MG PO ×2 (08:27→16:06)
--- NOTE | 2022-11-17 08:58 | PM.DS ---
DS: Admitting Diagnosis Discharge Date 11/17/22 Admitting Diagnosis Alcohol withdraw DS: Discharge Diagnosis Discharge Diagnosis (1) Seizure: Code(s): R56.9 - Unspecified convulsions Status: Acute Assessment and Plan: -Patient and his brother in law were in and drive through with [id number] noted that the patient had some tonic clonic convulsions and brought him to the ER on 11/09 -patient has not had any seizure activity since then -he was found to have a sodium level of 120 and was given 3% saline ER -sodium level on 11/14/2022 is 136. -continue seizure precautions -could be related to alcohol intoxication and?withdrawal -continue to monitor -EEG on 11/12 This is an abnormal EEG due to the absence of well-developed posterior dominant rhythm. This finding can be seen in the setting of mild encephalopathy. There are no electrographic seizures or epileptiform features noted during the recording. Clinical correlation is recommended -neurology consulted due to mild encephalopathy and did not recommend any additional treatment for this. -on exam patient was able to answer who he was, why he was here and the time of year. But unable to stay where he was. -plan on discharge tomorrow pending no complications. Patient planned to be discharged into rehab facility. -Librium discontinued on 11/16/2022. Monitoring patient closely with CIWA score. -Patient plans to be discharged to rehab facility once he is no longer taking Librium. -started patient on 500 mg thiamine x3 days -plan on discharge (2) Hyponatremia: Code(s): E87.1 - Hypo-osmolality and hyponatremia Status: Acute Assessment and Plan: -Hyponatremia, sodium levels on admission of 120, patient has a history of chronic hyponatremia and has been treated in the hospital and the past, -nephrology following and managing -sodium improved and stable -likely secondary to chronic alcoholism too -nephrology involved in patient's care (3) Alcohol dependence: Code(s): F10.20 - Alcohol dependence, uncomplicated Status: Acute Assessment and Plan: -Continue to monitor for withdrawals -continue folic acid and thiamine -continue Librium at low-dose.? Likely discharged on taper -CIWA protocol, p.r.n. Ativan ordered but patient has not been requiring -CIWA score today is 0 -Counseled patient on cessation of alcohol and possibly getting some rehab (4) Tobacco dependence: Code(s): F17.200 - Nicotine dependence, unspecified, uncomplicated Status: Acute Assessment and Plan: Nicotine patches knee (5) Hypothyroidism: Code(s): E03.9 - Hypothyroidism, unspecified Status: Acute Assessment and Plan: Continue levothyroxine (6) Hypokalemia: Code(s): E87.6 - Hypokalemia Status: Acute Assessment and Plan: Potassium stable (7) UTI (urinary tract infection): Code(s): N39.0 - Urinary tract infection, site not specified Status: Acute Assessment and Plan: UA positive for UTI Urine culture grew multi-drug resistant E coli Cefepime sensitive, continue on current medication regimen Patient has continued cefepime for a total of 6 days out of 7 day treatment (8) COPD exacerbation: Code(s): J44.1 - Chronic obstructive pulmonary disease with (acute) exacerbation Status: Acute Assessment and Plan: Patient started on short course of prednisone 60mg x 5 days. Patient on day 3 of 5. Bronchodilator continued DS: Summary Hospital Course Reason for hospitalization: Alcohol withdrawal Hospital Course: 57-year-old male with a past medical history of alcohol abuse presented to the ER on 11/09/2022 after rapid response was called. Patient had what appeared to be a seizure in the parking lot. Patient's brlijzl-rr-ehz stated that the patient had begun having generalized convulsions and then was unresponsive for a short time afterwards. Patient does not have a hi
[2022-11-17 11:07] LABS: Glucose Point of Care 179 mg/dl (65-105)
[2022-11-17 16:38] LABS: Glucose Point of Care 187 mg/dl (65-105)
== END 2022-11-17 17:40 | DRG 775 ==
LOC: ANHED 16:55 → ANHICU 17:59 → ANH3MEDSUR 11-17 12:14 → ANHICU 11-20 15:41
PROVIDERS: Internal Medicine; Internal Medicine Nephrology; Nurse Practitioner; Admitting Provider Internal Medicine; Emergency Provider Emergency Medicine; PCP Family Medicine; Visit Provider Internal Medicine Critical Care Medicine
DX: F10.239 Alcohol dependence with withdrawal, unspecified (principal); I50.9 Heart failure, unspecified; E46 Unspecified protein-calorie malnutrition; R56.9 Unspecified convulsions; I69.354 Hemiplegia and hemiparesis following cerebral infarction affecting left non-dominant side; E87.1 Hypo-osmolality and hyponatremia; D64.9 Anemia, unspecified; K21.9 Gastro-esophageal reflux disease without esophagitis; I10 Essential (primary) hypertension; F17.210 Nicotine dependence, cigarettes, uncomplicated; E03.9 Hypothyroidism, unspecified; Z86.16 Personal history of COVID-19; E87.6 Hypokalemia; Z20.822 Contact with and (suspected) exposure to COVID-19; N39.0 Urinary tract infection, site not specified; B96.20 Unspecified Escherichia coli [E. coli] as the cause of diseases classified elsewhere; Z16.24 Resistance to multiple antibiotics; J44.1 Chronic obstructive pulmonary disease with (acute) exacerbation; Z82.49 Family history of ischemic heart disease and other diseases of the circulatory system; Z83.3 Family history of diabetes mellitus; Z82.5 Family history of asthma and other chronic lower respiratory diseases; Z79.899 Other long term (current) drug therapy; Z79.51 Long term (current) use of inhaled steroids; Z88.1 Allergy status to other antibiotic agents; Y90.0 Blood alcohol level of less than 20 mg/100 ml
CPT/HCPCS: 36415; 36600; 70450; 71045; 80048; 80053; 80307; 81001; 82140; 82375; 82436; 82533; 82570; 82607; 82746; 82805; 82948; 83050; 83605; 83735; 83880; 83883; 83935; 84100; 84155; 84156; 84165; 84166; 84295; 84300; 84425; 84439; 84443; 84484; 84540; 85025; 85027; 85610; 85730; 85999; 87077; 87086; 87088; 87186; 87636; 93005; 94640; 95816; 96361; 96365; 96366; 96367; 96375; 97161; 97165; 97530; 97535; 99285; A9270; G0378; G0379; J0692; J1940; J2060; J3411; J3475; J3480; J7030; J7040; J7060; J7131; J7512

== ENCOUNTER 2023-04-10 17:40 | Inpatient (IN) | payer OTHER, SELFPAY ==
--- NOTE | ~2023-04-10 | CT_ITS ---
EXAMINATION: CT abdomen pelvis wo con DATE: 04/10/2023 18:39 INDICATION: Altered mental status. Epigastric pain. TECHNIQUE: Computed tomography (CT) of the abdomen and pelvis was performed without intravenous contr ast. Automated exposure control and iterative reconstruction technique were employed. The dose-length product was 504.43 mGy-cm. COMPARISON: 09/12/2021 FINDINGS: Mild discoid atelectasis at the posterior right lung base. There is also a tiny calcified right lower lobe nodule consistent with old granulomatous disease. Heart size is normal. Atherosclerotic coronar y artery calcifications. No pericardial or pleural effusion. Small calcified gallstone at the depende nt fundus of the normal-appearing gallbladder. Liver, spleen, pancreas, bilateral adrenal glands and kidneys are normal. There is fluid scattered throughout the small bowel which is not frankly dilated and with no discrete transition point to suggest obstruction in this could be related to either an il eus or enteritis. Normal appendix. There is diffuse fatty infiltration of the wall of the colon which could be related to body habitus or sequela of chronic inflammation. There are few scattered sigmoid diverticula without adjacent inflammatory stranding to suggest diverticulitis. Bladder is normal. No free intraperitoneal gas or fluid. No pathologically enlarged abdominal or pelvic lymphadenopathy. S mall fat-containing left inguinal hernia. Chronic appearing mild L2 compression fracture which is new since the prior study. Mild thoracolumbar levocurvature. IMPRESSION: 1. Fluid scattered throughout small bowel without emma dilation or discrete transition point which c ould be related to either an enteritis or ileus. 2. Cholelithiasis. 3. Mild sigmoid diverticulosis. 4. Small fat-containing left inguinal hernia. Reviewed, dictated and finalized at location A. IMPRESSION: 1. Fluid scattered throughout small bowel without emma dilation or discrete tr ansition point which could be related to either an enteritis or ileus. 2. Cholelithiasis. 3. Mild sigmoid diverticulosis. 4. Small fat-containing left inguinal hernia.
--- NOTE | ~2023-04-10 | XR_ITS ---
EXAM: XR lumbar spine 2-3V DATE: 04/14/2023 14:24 HISTORY: pain, fall POST SEIZURE . COMPARISON: CT chest abdomen pelvis 09/12/2021. FINDINGS: Mild scoliosis. 5 nonrib-bearing lumbar-type vertebral bodies. Pedicles intact. Normal vert ebral body alignment. Mild anterior wedge deformity at L2. Multilevel concave endplate deformities. D ecreased mineralization. Multilevel mild degenerative disc disease. Multilevel severe facet arthropat hy. IMPRESSION: Mild anterior wedge compression deformity at L2, uncertain age, correlate with pain/tende rness. Osteoporotic changes in the bones, consider bone density evaluation. Reviewed, dictated and finalized at location K. IMPRESSION: Mild anterior wedge compression deformity at L2, uncertain age, cor relate with pain/tenderness. Osteoporotic changes in the bones, consider bone d ensity evaluation.
--- NOTE | ~2023-04-10 | XR_ITS ---
EXAM: XR thoracic spine 2V DATE: 04/14/2023 14:24 HISTORY: pain, fall POST SEIZURE . COMPARISON: None available. FINDINGS: Vertebral body alignment intact. Vertebral body heights preserved. Diffusely decreased min eralization. Multilevel mild degenerative disc disease. Moderate-severe degenerative disc disease inc identally noted in the lower cervical spine. IMPRESSION: No acute fracture or traumatic malalignment detected in the thoracic spine. Reviewed, dictated and finalized at location K. IMPRESSION: No acute fracture or traumatic malalignment detected in the thoraci c spine.
--- NOTE | ~2023-04-10 | XR_ITS ---
EXAMINATION: XR chest 1V DATE: 04/10/2023 18:51 INDICATION: Months of weakness. Cough and shortness of breath. TECHNIQUE: frontal view of the chest was obtained. COMPARISON: Chest radiograph dated 11/12/2022 FINDINGS: The lungs are clear with no focal airspace opacities, pulmonary edema, pleural effusion or pneumothor ax. The cardiomediastinal silhouette is normal. IMPRESSION: 1. No acute cardiopulmonary disease. Reviewed, dictated and finalized at location A.
--- NOTE | ~2023-04-10 | CT_ITS ---
EXAMINATION: CT brain wo con DATE: 04/10/2023 18:39 INDICATION: Altered mental status TECHNIQUE: Computed tomography (CT) of the head was performed without intravenous contrast. Sagittal and coronal reconstructions were performed. The mA was adjusted according to patient size. Iterative reconstruction technique was employed. The dose-length product was 681.00 mGy-cm. COMPARISON: head CT dated 11/09/2022 FINDINGS: Again seen are regions of encephalomalacia in the bilateral occipital lobes consistent with old infar cts, small on the right and moderate-sized on the left. Additional small old lacunar infarct in the l eft basal ganglia. No acute intracranial hemorrhage, acute infarction or abnormal extra axial fluid c ollection. There is mild scattered white matter hypoattenuation consistent with chronic small vessel ischemic disease. Symmetric prominence of the sulci, ventricles and subarachnoid spaces overlying the convexities consistent with moderate diffuse cerebral volume loss which is disproportionate for age. No mass/mass effect. Changes of bilateral intraocular lens replacement. The orbits and mastoid air c ells are normal. Mild mucosal thickening the posterior right ethmoid sinus. IMPRESSION: 1. Unchanged old bilateral occipital infarcts small old lacunar infarct in the left basal ganglia. No acute intracranial process. 2. Moderate diffuse cerebral volume loss which is disproportionate for age. Reviewed, dictated and finalized at location A.
[2023-04-10 17:44] VITALS: BP 81/60; PULSE 103; RESP 16; TEMP 37; O2SAT 96
[2023-04-10 18:15] VITALS: BP 86/60; PULSE 98; RESP 17; O2SAT 94
--- NOTE | 2023-04-10 18:26 | ECG_ITS ---
Measurements Intervals [place] Rate: 106 P: 44 VA: 132 QRS: 262 QRSD: 153 T: 68 QT: 383 QTc: 509 Interpretive Statements SINUS TACHYCARDIA RIGHT AXIS DEVIATION RIGHT BUNDLE BRANCH BLOCK ST-T WAVE ABNORMALITY IN ANTERIOR LEADS- CONSIDER ISCHEMIA BASELINE ARTIFACT- II, AVL ABNORMAL ECG COMPARED TO ECG 11/09/2022 19:00:41 SINUS TACHYCARDIA NOW PRESENT Electronically Signed On 04-10-2023 20:48:07 CDT by James Cox D.O.
--- NOTE | 2023-04-10 18:46 | ED.WEAKNESS ---
HPI - Weakness General Chief complaint: Weakness Stated complaint: deteriorated x 4 days Time Seen by Provider: 04/10/23 17:54 History of Present Illness HPI Narrative: Patient is a 57-year-old male presenting with altered mental status. Patient's sister is at bedside and helps with the history. She states that about 5 days ago he started complaining of itchy eyes and generalized weakness. The next day he woke up and felt fine. States that he was doing well until last night. States that since last night he has been feeling increasingly weak. States that he felt so weak today that he was unable to stand up so his sister called EMS. Patient reportedly lives with his brother who noted that the patient has seemed more lethargic over the last day. Patient has a history of alcohol use disorder, states that he last had a drink yesterday. He denies any pain or nausea right now. He denies headaches, vision changes, focal numbness or weakness, constipation or diarrhea. He does complain of intermittent dysuria as well as bilateral lower extremity swelling for several days. Related Data Home Medications Medication Instructions Recorded Confirmed ferrous sulfate 325 mg (65 mg 324 mg PO BID 07/27/21 04/10/23 iron) tablet levothyroxine 25 mcg tablet 25 mcg PO DAILY 07/27/21 04/10/23 megestrol 400 mg/10 mL (10 mL) 400 mg PO BID 08/26/21 04/10/23 oral suspension pantoprazole 40 mg granules 40 mg PO Q12H 08/26/21 04/10/23 delayed-release for susp in packet (Protonix) docusate sodium 100 mg capsule 100 mg PO Q12H 11/09/22 04/10/23 furosemide 40 mg tablet 40 mg PO DAILY 04/10/23 04/10/23 gabapentin 800 mg tablet 800 mg PO TID 04/10/23 04/10/23 ibuprofen 800 mg tablet 800 mg PO Q8-12H PRN Pain 04/10/23 04/10/23 lisinopril 20 mg tablet 20 mg PO DAILY 04/10/23 04/10/23 Allergies Allergy/AdvReac Type Severity Reaction Status Date / Time amoxicillin Allergy Rash Verified 04/10/23 17:54 Review of Systems Review of Systems: All systems reviewed & are unremarkable except as noted in HPI and below PMFSH Past Medical History Medical History Acute GI bleeding Acute ischemic stroke Adult failure to thrive Alcohol dependence Cerebrovascular accident With left-sided residual weakness. Chronic anemia Chronic hyponatremia Congestive heart failure Echocardiogram on 07/17/2021 showed normal LV chamber dimension and function with an estimated EF of 65 to 70% and grade 1 diastolic dysfunction with mild pulmonary hypertension estimated pulmonary arterial systolic pressure of 37 mmHg. COVID (08/2021) DVT prophylaxis Gastroesophageal reflux disease Generalized weakness HCAP (healthcare-associated pneumonia) Hypertension Hypokalemia Hypothyroidism Orthostatic hypotension Pneumonia Protein calorie malnutrition Rectal bleeding Sepsis Stroke Tobacco dependence Unwitnessed fall Urinary tract infection UTI (urinary tract infection) Surgical History Surgical History History of excision of testicular mass With benign histology. Family History Family History Father Chronic obstructive pulmonary disease Congestive heart failure Hypertension Mother Abdominal aortic aneurysm rupture Daughter Type 1 diabetes mellitus Social History Social History Social History: The patient lives with his sister and [id number]. The patient has 3 children. And is disabled. The patient states that he likes to drink whiskey and does not like to drink beer. Initially he stated it has been 6 months since he drink any alcohol. However the family members stated that the patient drink fire balls yesterday. The patient is single and unemployed Surrogate decision maker: Bere Gagnon, sister. Code status: Full
[2023-04-10 18:48] VITALS: BP 89/54; PULSE 98; RESP 20; O2SAT 100
[2023-04-10] MEDS: SODIUM CHLORIDE 0.9% IV 1,000 ML 999 ML IV CONT (18:51)
[2023-04-10 18:58] LABS: Basophils Percent Auto 0.2 % (0.2-1.2); Eosinophils Percent Auto 0.1 % (0-4.4); Hematocrit 22.3 % (42.0-52.0); Hemoglobin 7.4 g/dL (14.0-18.0); Immature Granulocyte Absolute 0.17 K/mm3 (0.00-0.031); Lymphocytes Absolute Auto 2.26 K/mm3 (0.9-3.2); Lymphocytes Percent Auto 13.9 % (18.3-44.2); Mean Corpuscular HGB Conc 33.2 g/dl (32-36); Mean Corpuscular Hemoglobin 38.7 pg (26-34); Mean Corpuscular Volume 116.8 fl (80-100); Monocytes Absolute Auto 1.9 K/mm3 (0.1-0.6); Monocytes Percent Auto 11.4 % (2.6-8.5); Neutrophils Percent Auto 73.4 % (45.5-73.1); Nucleated Red Blood Cells Perc 0.2 % (0.0-0.2); Platelet Count Result 345 k/mm3 (150-375); Red Blood Count 1.91 M/mm3 (4.6-6.20); Red Cell Distribution Width 25.9 % (11.5-14.5); White Blood Count 16.3 K/mm3 (4.5-10.0)
[2023-04-10 19:10] LABS: Lactic Acid Reflex 1.2 mmol/L (0.7-2.0)
[2023-04-10 19:10] LABS: Ethanol < 10 mg/dL (<10)
[2023-04-10 19:15] LABS: Alanine Aminotransferase 121 U/L (6-50); Albumin Level 2.5 g/dL (3.5-5.1); Alkaline Phosphatase 243 U/L (38-126); Anion Gap 4 mmol/L (8-16); Aspartate Amino Transferase 272 U/L (17-59); Bilirubin,Total 1.2 mg/dL (0.2-1.3); Blood Urea Nitrogen 39 mg/dL (9-20); Calcium 6.8 mg/dL (8.4-10.2); Carbon Dioxide 35 mmol/L (22-30); Chloride 89 mmol/L (98-107); Estimated Glomerular Filt Rate 35; Glucose 125 mg/dL (65-110); Lipase 19 U/L (23-300); Magnesium 2.3 mg/dL (1.6-2.3); Potassium 2.5 mmol/L (3.4-5.0); Sodium 128 mmol/L (137-145)
[2023-04-10 19:16] LABS: INR 0.9; Prothrombin Time 12.5 Seconds (11.1-14.7)
[2023-04-10 19:17] LABS: Partial Thromboplastin Time 33.3 SECONDS (22.3-36.8)
[2023-04-10 19:18] LABS: Platelet Estimate Adequate (Adequate)
[2023-04-10 19:19] LABS: Creatine Kinase 2410 U/L (55-170)
[2023-04-10 19:20] LABS: Anisocytosis 3+ (NORMAL); Schistocytes None Seen (NORMAL)
[2023-04-10 19:21] LABS: NT Pro B Type Natriuretic Pept 3540 pg/mL (19.9-100); Polychromasia 1+ (NORMAL); Troponin I 0.022 ng/mL (0.000-0.034)
[2023-04-10 19:34] LABS: Influenza A QL RT-PCR Negative (Negative); Influenza B QL RT-PCR Negative (Negative); RSV RNA, RT-PCR Negative (Negative); SARS-CoV-2 RNA PCR Negative (Negative)
--- NOTE | 2023-04-10 19:57 | PM.IMHP ---
H&P: HPI History of Present Illness Date/Time: 04/10/23 19:57 Chief Complaint: generalized weakness Narrative: Patient is a 57-year-old male with a past medical history of stroke and alcoholism who presented with generalized weakness.? Patient's sister is at bedside and helps with the history.? she states that he has not been eating and drinking well for last few days and since last night he has been feeling increasingly weak.? States that he felt so weak today that he was unable to stand up so his sister called EMS.? Patient reportedly lives with his brother who noted that the patient has seemed more lethargic over the last day.? Patient has a history of alcohol use disorder, states that he last had a drink yesterday.? He denies any pain or nausea right now.? He denies headaches, vision changes, focal numbness or weakness, constipation or diarrhea.? in ED his WBC count was 16,000, hemoglobin is low and he was found to have an LUIS and hyponatremia and hypokalemia. He was also hypotensive and has been given IV fluid boluses. Review of Systems Review of Systems: negative other than HPI PMFSH Past Medical History Medical History Acute GI bleeding Acute ischemic stroke Adult failure to thrive Alcohol dependence Cerebrovascular accident With left-sided residual weakness. Chronic anemia Chronic hyponatremia Congestive heart failure Echocardiogram on 07/17/2021 showed normal LV chamber dimension and function with an estimated EF of 65 to 70% and grade 1 diastolic dysfunction with mild pulmonary hypertension estimated pulmonary arterial systolic pressure of 37 mmHg. COVID (08/2021) DVT prophylaxis Gastroesophageal reflux disease Generalized weakness HCAP (healthcare-associated pneumonia) Hypertension Hypokalemia Hypothyroidism Orthostatic hypotension Pneumonia Protein calorie malnutrition Rectal bleeding Sepsis Stroke Tobacco dependence Unwitnessed fall Urinary tract infection UTI (urinary tract infection) Surgical History Surgical History History of excision of testicular mass With benign histology. Family History Family History Father Chronic obstructive pulmonary disease Congestive heart failure Hypertension Mother Abdominal aortic aneurysm rupture Daughter Type 1 diabetes mellitus Social History Social History Social History: The patient lives with his sister and [id number]. The patient has 3 children. And is disabled. The patient states that he likes to drink whiskey and does not like to drink beer. Initially he stated it has been 6 months since he drink any alcohol. However the family members stated that the patient drink fire balls yesterday. The patient is single and unemployed Surrogate decision maker: Bere Rushjewelshoda, sister. Code status: Full code. Smoking packs per day: 1 Smoking cigarettes per day: 20.0 Years smoked: 35 Smoking pack-years: 35.00 Smoking status: Smoker, status unknown Tobacco type: cigarettes Additional smoking assessment comments: patient on nicotine patch Alcohol intake: current Drinks per week: 15 Alcohol use details: 3 to 4 beers per week. Substance use: unknown Substance use type: does not use Other substance usage details: 200ml whiskey/day Lack of Transportation: No Lack of Food: Sometimes True Current Housing: I Have Housing Concerned About Future Housing: Decline to Answer Difficulty Paying Gas/Electric Bills: Decline to Answer Difficulty Paying for Meds: Decline to Answer Currently Unemployed: Decline to Answer Education: Decline to Answer Difficulty w/ Childcare or Family Care: No Additional living arrangements comments: Resident at [facility]. Additional occupation/ed
[2023-04-10] MEDS: POTASSIUM CHLORIDE INJ 40 MEQ in SODIUM CHLORIDE 0.9% IV 500 ML 130 MEQ IVPB (20:06)
[2023-04-10] MEDS: POTASSIUM CHLORIDE 20 MEQ PACKET (FOR LIQUID) 40 MEQ PO (20:10)
[2023-04-10 20:12] LABS: Appearance Urine Cloudy (Clear); Bacteria Urine 4+ /hpf; Bilirubin Urine 2+ (Negative); Blood Urine 3+ (Negative); Color Urine Dark Yellow (Yellow); Glucose Urine UA Negative (Negative); Hyaline Casts Urine Present /lpf; Ketones Urine Trace mg/dL (Negative); Leukocyte Esterase Ur 2+ LEU/UL (Negative); Nitrate Urine Negative (Negative); Non Pathogenic Casts >20; Protein Urine 1+ mg/dL (Negative); Specific Grav Ur 1.022 (1.001-1.035); Squamous Epithelial Cell Urine None seen /hpf (Few); WBC Urine >100 /hpf
[2023-04-10 20:17] LABS: Add Urine Microscopic? YES
[2023-04-10 20:54] LABS: Glucose Point of Care 71 mg/dl (65-105)
[2023-04-10] MEDS: DEXTROSE 5%/0.9% SOD CHL 1,000 ML 100 ML IV CONT (20:58)
--- NOTE | 2023-04-10 21:06 | PC.NURSE ---
Patient eating sandwich at this time
[2023-04-10 21:07] VITALS: BP 101/66; PULSE 103; RESP 12; O2SAT 97
[2023-04-10 22:00] VITALS: BP 95/64; PULSE 102; RESP 14; TEMP 37; O2SAT 92
[2023-04-10 22:22] VITALS: BMI 19.5
[2023-04-10 22:27] VITALS: BMI 19.5
[2023-04-10 22:40] LABS: Troponin I 0.025 ng/mL (0.000-0.034)
[2023-04-10 23:02] VITALS: PULSE 96
[2023-04-11] VITALS (14 sets, daily range): BP systolic 75–108; BP diastolic 54–81; PULSE 70–106; RESP 14–18; TEMP 36.1–37.7; O2SAT 91–100; BMI 19.5
[2023-04-11] MEDS: SODIUM CHLORIDE 0.9% IV 1,000 ML 999 ML IV CONT (00:27)
[2023-04-11 02:13] LABS: Anion Gap 3 mmol/L (8-16); Blood Urea Nitrogen 34 mg/dL (9-20); Calcium 6.3 mg/dL (8.4-10.2); Carbon Dioxide 29 mmol/L (22-30); Chloride 100 mmol/L (98-107); Estimated CRCL calculation 57 ml/min; Estimated Glomerular Filt Rate > 60; Glucose 125 mg/dL (65-110); Potassium 3.4 mmol/L (3.4-5.0); Sodium 132 mmol/L (137-145)
[2023-04-11 02:20] LABS: Troponin I 0.019 ng/mL (0.000-0.034)
[2023-04-11] MEDS: DEXTROSE 5%/0.9% SOD CHL 1,000 ML 100 ML IV CONT (06:12)
[2023-04-11 06:32] LABS: Basophils Percent Auto 0.1 % (0.2-1.2); Immature Granulocyte Absolute 0.18 K/mm3 (0.00-0.031); Immature Granulocyte Percent A 1.1 % (0-0.5); Lymphocytes Absolute Auto 2.06 K/mm3 (0.9-3.2); Lymphocytes Percent Auto 12.7 % (18.3-44.2); Mean Corpuscular HGB Conc 32.1 g/dl (32-36); Mean Corpuscular Volume 118.1 fl (80-100); Mean Platelet Volume 9.5 fl (7.4-10.4); Monocytes Absolute Auto 1.6 K/mm3 (0.1-0.6); Neutrophils Absolute Auto 12.3 K/mm3 (1.3-6.7); Neutrophils Percent Auto 76.1 % (45.5-73.1); Platelet Count Result 315 k/mm3 (150-375); Red Blood Count 1.66 M/mm3 (4.6-6.20); Red Cell Distribution Width 25.6 % (11.5-14.5); White Blood Count 16.2 K/mm3 (4.5-10.0)
[2023-04-11 06:47] LABS: Hematocrit 19.6 % (42.0-52.0)
[2023-04-11 06:48] LABS: Hemoglobin 6.3 g/dL (14.0-18.0)
[2023-04-11 06:59] LABS: Hypochromasia 1+ (NORMAL); Platelet Estimate Adequate (Adequate)
[2023-04-11 07:00] LABS: Anisocytosis 2+ (NORMAL); Basophilic Stippling 1+ (NORMAL); Schistocytes None Seen (NORMAL); Stomatocytes 1+ (NORMAL)
[2023-04-11 07:49] LABS: Folic Acid 6.2 ng/mL (2.76->20)
[2023-04-11] MEDS: SODIUM CHLORIDE 0.9% IV 250 ML 30 ML IV CONT (10:37)
[2023-04-11] MEDS: POTASSIUM CHLORIDE 20 MEQ TABLET 40 MEQ PO (10:37)
[2023-04-11] MEDS: MEGESTROL ACETATE (*CHEMO) ORAL SUSP 40 MG/ML SYR 400 MG PO ×2 (10:38→17:05)
[2023-04-11] MEDS: GABAPENTIN 400 MG CAPSULE 800 MG PO ×3 (10:38→17:05)
[2023-04-11] MEDS: DOCUSATE SODIUM 100 MG CAPSULE PO (10:38)
[2023-04-11] MEDS: FERROUS SULFATE 324 MG TABLET PO ×2 (10:39→17:06)
[2023-04-11] MEDS: CLOPIDOGREL BISULFATE 75 MG TABLET PO (10:39)
[2023-04-11] MEDS: FOLIC ACID 1 MG TABLET PO (10:39)
[2023-04-11] MEDS: PANTOPRAZOLE 40 MG TABLET PO ×2 (10:39→20:47)
[2023-04-11] MEDS: SODIUM CHLORIDE 1 GM TABLET PO ×2 (10:39→17:05)
[2023-04-11] MEDS: DULoxetine HCL 60 MG CAPSULE.DR PO (10:39)
[2023-04-11] MEDS: CYANOCOBALAMIN 1,000 MCG TABLET 1000 MCG PO (10:39)
[2023-04-11] MEDS: ENOXAPARIN 30 MG/0.3 ML SYRINGE SUB-Q (10:40)
[2023-04-11] MEDS: THIAMINE HCL 100 MG TABLET PO (10:40)
[2023-04-11] MEDS: traMADol HCL (*CRX) 50 MG TABLET PO (13:13)
[2023-04-11 15:42] LABS: Hematocrit 24.1 % (42.0-52.0); Hemoglobin 7.7 g/dL (14.0-18.0)
--- NOTE | 2023-04-11 15:52 | WPDPN ---
Progress Note: A&P Assessment and Plan (1) LUIS (acute kidney injury): Code(s): N17.9 - Acute kidney failure, unspecified Status: Acute Assessment and Plan: from dehydration. Will start on IV fluids and monitor BMP 04/11/2023 interval history: Patient with history of alcohol abuse presented with generalized weakness most likely secondary to anemia and dehydration, patient is given 1 unit of pack RBC, gently hydrate the and monitor kidney function, and electrolytes, patient with anemia, there is no obvious source of bleeding, his vitamin B12 and folic are normal, will do the iron profile and further recommendation to follow, will have a PT OT evaluate the patient will benefit with rehab, patient's last drink was on 04/09 patient is high risk of DT, will monitor patient CIWA protocol. (2) Rhabdomyolysis: Code(s): M62.82 - Rhabdomyolysis Status: Acute Assessment and Plan: mild rhabdomyolysis. IV fluids (3) Hyponatremia: Code(s): E87.1 - Hypo-osmolality and hyponatremia Status: Chronic Assessment and Plan: likely secondary to chronic alcoholism as well as not eating and drinking. He has received IV fluid boluses with NS. Will put him on D5 NS for maintenance fluid (4) Alcohol dependence: Code(s): F10.20 - Alcohol dependence, uncomplicated Status: Acute Assessment and Plan: monitor for alcohol withdrawal. Will put him on D5 NS as maintenance fluid. Will start him on oral thiamine and B12 supplement (5) Macrocytic anemia: Code(s): D53.9 - Nutritional anemia, unspecified Status: Acute Assessment and Plan: likely from B12 and folate deficiency. Will check serum B12 and folate levels in the morning. Start patient on oral thiamine B12 supplementation along with folic acid (6) Hypokalemia: Code(s): E87.6 - Hypokalemia Status: Acute Assessment and Plan: being replaced with IV and oral supplementation (7) Weakness: Code(s): R53.1 - Weakness Status: Acute Assessment and Plan: will consult PT OT and case management for possible rehab versus usp placement Plan DNR Regular diet Lovenox for DVT prophylaxis Subjective Date/time seen: 04/11/23 15:52 Interval history: Chief Complaint: ?generalized weakness HPINarrative: Patient is a 57-year-old male? with a past medical history of stroke and alcoholism who presented with? generalized weakness.? Patient's sister is at bedside and helps with the history.?? she states that he has not been eating and drinking well for last few days and since last night he has been feeling increasingly weak.? States that he felt so weak today that he was unable to stand up so his sister called EMS.? Patient reportedly lives with his brother who noted that the patient has seemed more lethargic over the last day.? Patient has a history of alcohol use disorder, states that he last had a drink yesterday.? He denies any pain or nausea right now.? He denies headaches, vision changes, focal numbness or weakness, constipation or diarrhea.? in ED his WBC count was 16,000, hemoglobin is low and he was found to have an LUIS and hyponatremia and hypokalemia. ? He was also hypotensive and has been given IV fluid boluses. 04/11/2023 interval history: Patient with history of alcohol abuse presented with generalized weakness most likely secondary to anemia and dehydration, patient is given 1 unit of pack RBC, gently hydrate the and monitor kidney function, and electrolytes, patient with anemia, there is no obvious source of bleeding, his vitamin B12 and folic are normal, will do the iron profile and further recommendation to follow, will have a PT OT evaluate the patient will benefit with rehab, patient's last drink was on 04/09 patient is high risk of DT, will monitor patient CIWA protocol. Review of Systems Review of Systems: negative other than HPI Exam N
[2023-04-11 15:55] LABS: Anion Gap -1 mmol/L (8-16); Blood Urea Nitrogen 22 mg/dL (9-20); Calcium 6.5 mg/dL (8.4-10.2); Carbon Dioxide 27 mmol/L (22-30); Chloride 103 mmol/L (98-107); Estimated CRCL calculation 108 ml/min; Estimated Glomerular Filt Rate > 60; Glucose 110 mg/dL (65-110); Potassium 3.5 mmol/L (3.4-5.0); Sodium 129 mmol/L (137-145)
[2023-04-11] MEDS: LIDOCAINE 5% PATCH 3 PATCH TRANSDERM (20:47)
[2023-04-12] VITALS: BP 100/70; PULSE 75; PULSE 79; RESP 18; TEMP 36.6; O2SAT 84
[2023-04-12 04:00] VITALS: BP 101/76; PULSE 82; PULSE 87; RESP 16; TEMP 35.8; O2SAT 96
[2023-04-12] MEDS: DEXTROSE 5%/0.9% SOD CHL 1,000 ML 100 ML IV CONT ×3 (05:30→20:10)
[2023-04-12] MEDS: LEVOTHYROXINE SODIUM 25 MCG TABLET PO (05:31)
[2023-04-12 06:27] LABS: Hemoglobin 8.4 g/dL (14.0-18.0); Mean Corpuscular HGB Conc 32.3 g/dl (32-36); Mean Corpuscular Hemoglobin 35.3 pg (26-34); Mean Corpuscular Volume 109.2 fl (80-100); Mean Platelet Volume 9.1 fl (7.4-10.4); Platelet Count Result 315 k/mm3 (150-375); Red Blood Count 2.38 M/mm3 (4.6-6.20)
[2023-04-12 06:51] LABS: Alanine Aminotransferase 91 U/L (6-50); Albumin Level 2.2 g/dL (3.5-5.1); Alkaline Phosphatase 199 U/L (38-126); Anion Gap -1 mmol/L (8-16); Aspartate Amino Transferase 153 U/L (17-59); Bilirubin,Total 1.1 mg/dL (0.2-1.3); Blood Urea Nitrogen 15 mg/dL (9-20); Carbon Dioxide 33 mmol/L (22-30); Chloride 104 mmol/L (98-107); Creatine Kinase 579 U/L (55-170); Estimated CRCL calculation 127 ml/min; Estimated Glomerular Filt Rate > 60; Glucose 100 mg/dL (65-110); Potassium 3.3 mmol/L (3.4-5.0); Sodium 136 mmol/L (137-145)
[2023-04-12 08:00] VITALS: BP 105/73; PULSE 107; PULSE 61; PULSE 90; RESP 16; TEMP 36.3; O2SAT 97
[2023-04-12 08:44] LABS: Iron 42 ug/dL (49-181)
[2023-04-12 08:54] LABS: Percent Iron Saturation 42 % (20-50)
[2023-04-12] MEDS: chlordiazePOXIDE (*CRX) 25 MG CAPSULE 50 MG PO (09:00)
[2023-04-12] MEDS: DULoxetine HCL 60 MG CAPSULE.DR PO (09:01)
[2023-04-12] MEDS: PANTOPRAZOLE 40 MG TABLET PO ×2 (09:01→20:27)
[2023-04-12] MEDS: FERROUS SULFATE 324 MG TABLET PO ×2 (09:01→17:36)
[2023-04-12] MEDS: CYANOCOBALAMIN 1,000 MCG TABLET 1000 MCG PO (09:01)
[2023-04-12] MEDS: POTASSIUM CHLORIDE 20 MEQ TABLET.ER PO (09:01)
[2023-04-12] MEDS: CLOPIDOGREL BISULFATE 75 MG TABLET PO (09:01)
[2023-04-12] MEDS: THIAMINE HCL 100 MG TABLET PO (09:01)
[2023-04-12] MEDS: SODIUM CHLORIDE 1 GM TABLET PO ×2 (09:01→17:36)
[2023-04-12] MEDS: FUROSEMIDE 40 MG TABLET PO (09:02)
[2023-04-12] MEDS: GABAPENTIN 400 MG CAPSULE 800 MG PO ×3 (09:02→17:36)
[2023-04-12] MEDS: FOLIC ACID 1 MG TABLET PO (09:02)
[2023-04-12] MEDS: MEGESTROL ACETATE (*CHEMO) ORAL SUSP 40 MG/ML SYR 400 MG PO ×2 (09:03→17:37)
[2023-04-12 12:00] VITALS: BP 96/59; PULSE 105; PULSE 107; PULSE 91; RESP 16; TEMP 37; O2SAT 96
[2023-04-12] MEDS: ERTAPENEM 1 GM/NS 50 ML 1 GM/50 ML BAG IVPB (13:47)
--- NOTE | 2023-04-12 14:15 | WPDPN ---
Progress Note: A&P Assessment and Plan (1) LUIS (acute kidney injury): Code(s): N17.9 - Acute kidney failure, unspecified Status: Acute Assessment and Plan: from dehydration. Will start on IV fluids and monitor BMP 04/12/2023 interval history: Patient with history of alcohol abuse presented with generalized weakness most likely secondary to anemia and dehydration, patient is given 1 unit of pack RBC, gently hydrate the and monitor kidney function, and electrolytes, patient with anemia, there is no obvious source of bleeding, his vitamin B12 and folic are normal, iron profile showed elevated ferritin suggest anemia of chronic disease, today patient is going into alcohol withdrawal is confused unable to provide any review of symptom, will increase Librium to 50 mg q.6 p.r.n. with CIWA protocol, patient also found to have urine culture positive for E coli ESBL multidrug resistant discussed with the ID pharmacy will start the patient on ertapenem and monitor, will have a PT OT evaluate the patient will benefit with rehab, patient's last drink was on 04/09 patient is high risk of DT, will monitor patient CIWA protocol. (2) Rhabdomyolysis: Code(s): M62.82 - Rhabdomyolysis Status: Acute Assessment and Plan: mild rhabdomyolysis. IV fluids (3) Hyponatremia: Code(s): E87.1 - Hypo-osmolality and hyponatremia Status: Chronic Assessment and Plan: likely secondary to chronic alcoholism as well as not eating and drinking. He has received IV fluid boluses with NS. Will put him on D5 NS for maintenance fluid (4) Alcohol dependence: Code(s): F10.20 - Alcohol dependence, uncomplicated Status: Acute Assessment and Plan: monitor for alcohol withdrawal. Will put him on D5 NS as maintenance fluid. Will start him on oral thiamine and B12 supplement (5) Macrocytic anemia: Code(s): D53.9 - Nutritional anemia, unspecified Status: Acute Assessment and Plan: likely from B12 and folate deficiency. Will check serum B12 and folate levels in the morning. Start patient on oral thiamine B12 supplementation along with folic acid (6) Hypokalemia: Code(s): E87.6 - Hypokalemia Status: Acute Assessment and Plan: being replaced with IV and oral supplementation (7) Weakness: Code(s): R53.1 - Weakness Status: Acute Assessment and Plan: will consult PT OT and case management for possible rehab versus alf placement Plan DNR Regular diet Lovenox for DVT prophylaxis Subjective Date/time seen: 04/12/23 14:15 Interval history: Chief Complaint: ?generalized weakness HPINarrative: Patient is a 57-year-old male? with a past medical history of stroke and alcoholism who presented with? generalized weakness.? Patient's sister is at bedside and helps with the history.?? she states that he has not been eating and drinking well for last few days and since last night he has been feeling increasingly weak.? States that he felt so weak today that he was unable to stand up so his sister called EMS.? Patient reportedly lives with his brother who noted that the patient has seemed more lethargic over the last day.? Patient has a history of alcohol use disorder, states that he last had a drink yesterday.? He denies any pain or nausea right now.? He denies headaches, vision changes, focal numbness or weakness, constipation or diarrhea.? in ED his WBC count was 16,000, hemoglobin is low and he was found to have an LUIS and hyponatremia and hypokalemia. ? He was also hypotensive and has been given IV fluid boluses. 04/12/2023 interval history: Patient with history of alcohol abuse presented with generalized weakness most likely secondary to anemia and dehydration, patient is given 1 unit of pack RBC, gently hydrate the and monitor kidney function, and electrolytes, patient with anemia, there is no obvious source of bleeding, his vitami
[2023-04-12 16:00] VITALS: BP 104/78; PULSE 101; PULSE 105; PULSE 107; RESP 16; TEMP 36.6; O2SAT 98
[2023-04-12 20:00] VITALS: BP 105/72; PULSE 102; PULSE 99; RESP 18; TEMP 36.8; O2SAT 95
[2023-04-12] MEDS: DOCUSATE SODIUM 100 MG CAPSULE PO (20:30)
[2023-04-12] MEDS: LIDOCAINE 5% PATCH 3 PATCH TRANSDERM (21:25)
[2023-04-13] VITALS (7 sets, daily range): BP systolic 91–113; BP diastolic 63–84; PULSE 76–110; RESP 14–22; TEMP 36.2–37.2; O2SAT 92–98
[2023-04-13] MEDS: DEXTROSE 5%/0.9% SOD CHL 1,000 ML 100 ML IV CONT ×2 (06:25→17:00)
[2023-04-13] MEDS: LEVOTHYROXINE SODIUM 25 MCG TABLET PO (06:26)
[2023-04-13] MEDS: GABAPENTIN 400 MG CAPSULE 800 MG PO ×3 (08:15→16:54)
[2023-04-13] MEDS: traMADol HCL (*CRX) 50 MG TABLET PO (08:15)
[2023-04-13] MEDS: CLOPIDOGREL BISULFATE 75 MG TABLET PO (08:15)
[2023-04-13] MEDS: THIAMINE HCL 100 MG TABLET PO (08:16)
[2023-04-13] MEDS: POTASSIUM CHLORIDE 20 MEQ TABLET.ER PO (08:16)
[2023-04-13] MEDS: FERROUS SULFATE 324 MG TABLET PO ×2 (08:16→16:54)
[2023-04-13] MEDS: FUROSEMIDE 40 MG TABLET PO (08:16)
[2023-04-13] MEDS: FOLIC ACID 1 MG TABLET PO (08:16)
[2023-04-13] MEDS: CYANOCOBALAMIN 1,000 MCG TABLET 1000 MCG PO (08:16)
[2023-04-13] MEDS: DULoxetine HCL 60 MG CAPSULE.DR PO (08:16)
[2023-04-13] MEDS: PANTOPRAZOLE 40 MG TABLET PO ×2 (08:16→20:51)
[2023-04-13] MEDS: SODIUM CHLORIDE 1 GM TABLET PO ×2 (08:16→16:54)
[2023-04-13] MEDS: ENOXAPARIN 30 MG/0.3 ML SYRINGE SUB-Q (08:16)
[2023-04-13] MEDS: MEGESTROL ACETATE (*CHEMO) ORAL SUSP 40 MG/ML SYR 400 MG PO ×2 (08:17→16:54)
[2023-04-13 09:12] LABS: Hematocrit 23.8 % (42.0-52.0); Hemoglobin 7.6 g/dL (14.0-18.0); Mean Corpuscular HGB Conc 31.9 g/dl (32-36); Mean Corpuscular Hemoglobin 35.2 pg (26-34); Mean Corpuscular Volume 110.2 fl (80-100); Mean Platelet Volume 9.1 fl (7.4-10.4); Platelet Count Result 345 k/mm3 (150-375); Red Blood Count 2.16 M/mm3 (4.6-6.20); White Blood Count 12.4 K/mm3 (4.5-10.0)
--- NOTE | 2023-04-13 09:21 | PCOTNOTE ---
Attempted to see patient for OT re-evaluation. Patient in dialysis.
[2023-04-13 09:22] LABS: Alanine Aminotransferase 67 U/L (6-50); Alkaline Phosphatase 152 U/L (38-126); Anion Gap -3 mmol/L (8-16); Aspartate Amino Transferase 82 U/L (17-59); Bilirubin,Total 0.7 mg/dL (0.2-1.3); Blood Urea Nitrogen 9 mg/dL (9-20); Calcium 7.1 mg/dL (8.4-10.2); Carbon Dioxide 37 mmol/L (22-30); Chloride 102 mmol/L (98-107); Creatine Kinase 251 U/L (55-170); Estimated CRCL calculation 155 ml/min; Estimated Glomerular Filt Rate > 60; Glucose 103 mg/dL (65-110); Magnesium 1.6 mg/dL (1.6-2.3); Potassium 3.5 mmol/L (3.4-5.0); Sodium 136 mmol/L (137-145)
[2023-04-13] MEDS: DOCUSATE SODIUM 100 MG CAPSULE PO ×2 (09:32→20:51)
[2023-04-13] MEDS: THIAMINE HCL 200 MG/2 ML VIAL 500 MG IV PUSH ×2 (10:39→16:54)
--- NOTE | 2023-04-13 12:44 | WPDPN ---
Progress Note: A&P Assessment and Plan (1) LUIS (acute kidney injury): Code(s): N17.9 - Acute kidney failure, unspecified Status: Acute Assessment and Plan: from dehydration. Will start on IV fluids and monitor BMP 04/13/2023 interval history: Patient with history of alcohol abuse presented with generalized weakness most likely secondary to anemia and dehydration, patient is given 1 unit of pack RBC, gently hydrate the and monitor kidney function, and electrolytes, patient with anemia, there is no obvious source of bleeding, his vitamin B12 and folic are normal, iron profile showed elevated ferritin suggest anemia of chronic disease, today patient is going into alcohol withdrawal is confused unable to provide any review of symptom, on 04/12 increase Librium to 50 mg q.6 p.r.n. with CIWA protocol, patient still remains confused will a thiamine 500 mg IV b.i.d. for 3 days thereafter 250 mg IV b.i.d. for 3 days and continue thiamine 100 mg p.o. q.day, patient also found to have urine culture positive for E coli ESBL multidrug resistant discussed with the ID pharmacy will start the patient on ertapenem and monitor, will have a PT OT evaluate the patient will benefit with rehab, patient's last drink was on 04/09 patient is high risk of DT, will monitor patient CIWA protocol. (2) Rhabdomyolysis: Code(s): M62.82 - Rhabdomyolysis Status: Acute Assessment and Plan: mild rhabdomyolysis. IV fluids (3) Hyponatremia: Code(s): E87.1 - Hypo-osmolality and hyponatremia Status: Chronic Assessment and Plan: likely secondary to chronic alcoholism as well as not eating and drinking. He has received IV fluid boluses with NS. Will put him on D5 NS for maintenance fluid (4) Alcohol dependence: Code(s): F10.20 - Alcohol dependence, uncomplicated Status: Acute Assessment and Plan: monitor for alcohol withdrawal. Will put him on D5 NS as maintenance fluid. Will start him on oral thiamine and B12 supplement (5) Macrocytic anemia: Code(s): D53.9 - Nutritional anemia, unspecified Status: Acute Assessment and Plan: likely from B12 and folate deficiency. Will check serum B12 and folate levels in the morning. Start patient on oral thiamine B12 supplementation along with folic acid (6) Hypokalemia: Code(s): E87.6 - Hypokalemia Status: Acute Assessment and Plan: being replaced with IV and oral supplementation (7) Weakness: Code(s): R53.1 - Weakness Status: Acute Assessment and Plan: will consult PT OT and case management for possible rehab versus long term placement Plan DNR Regular diet Lovenox for DVT prophylaxis Subjective Date/time seen: 04/13/23 12:44 Interval history: Chief Complaint: ?generalized weakness HPINarrative: Patient is a 57-year-old male? with a past medical history of stroke and alcoholism who presented with? generalized weakness.? Patient's sister is at bedside and helps with the history.?? she states that he has not been eating and drinking well for last few days and since last night he has been feeling increasingly weak.? States that he felt so weak today that he was unable to stand up so his sister called EMS.? Patient reportedly lives with his brother who noted that the patient has seemed more lethargic over the last day.? Patient has a history of alcohol use disorder, states that he last had a drink yesterday.? He denies any pain or nausea right now.? He denies headaches, vision changes, focal numbness or weakness, constipation or diarrhea.? in ED his WBC count was 16,000, hemoglobin is low and he was found to have an LUIS and hyponatremia and hypokalemia. ? He was also hypotensive and has been given IV fluid boluses. 04/13/2023 interval history: Patient with history of alcohol abuse presented with generalized weakness most likely secondary to anemia and dehydration, patient is g
[2023-04-13] MEDS: ERTAPENEM 1 GM/NS 50 ML 1 GM/50 ML BAG IVPB (12:53)
[2023-04-13] MEDS: LIDOCAINE 5% PATCH 3 PATCH TRANSDERM (20:51)
[2023-04-13] MEDS: ACETAMINOPHEN 325 MG TABLET 650 MG PO (20:59)
[2023-04-13] MEDS: CYCLOBENZAPRINE HCL 5 MG TABLET PO (21:00)
[2023-04-14] VITALS (7 sets, daily range): BP systolic 90–111; BP diastolic 60–86; PULSE 92–110; RESP 16–20; TEMP 36.6–37.1; O2SAT 95–97
[2023-04-14] MEDS: DEXTROSE 5%/0.9% SOD CHL 1,000 ML 100 ML IV CONT ×2 (05:20→17:10)
[2023-04-14] MEDS: LEVOTHYROXINE SODIUM 25 MCG TABLET PO (05:20)
[2023-04-14 06:10] LABS: Hematocrit 23.5 % (42.0-52.0); Hemoglobin 7.5 g/dL (14.0-18.0); Mean Corpuscular HGB Conc 31.9 g/dl (32-36); Mean Corpuscular Hemoglobin 35.9 pg (26-34); Mean Corpuscular Volume 112.4 fl (80-100); Platelet Count Result 347 k/mm3 (150-375); Red Blood Count 2.09 M/mm3 (4.6-6.20); White Blood Count 14.6 K/mm3 (4.5-10.0)
[2023-04-14 06:20] LABS: Alanine Aminotransferase 52 U/L (6-50); Alkaline Phosphatase 140 U/L (38-126); Anion Gap -2 mmol/L (8-16); Aspartate Amino Transferase 53 U/L (17-59); Bilirubin,Total 0.4 mg/dL (0.2-1.3); Blood Urea Nitrogen 9 mg/dL (9-20); Calcium 6.9 mg/dL (8.4-10.2); Carbon Dioxide 35 mmol/L (22-30); Chloride 102 mmol/L (98-107); Creatine Kinase 145 U/L (55-170); Estimated CRCL calculation 127 ml/min; Estimated Glomerular Filt Rate > 60; Glucose 99 mg/dL (65-110); Magnesium 1.4 mg/dL (1.6-2.3); Potassium 3.5 mmol/L (3.4-5.0); Sodium 135 mmol/L (137-145)
[2023-04-14] MEDS: DOCUSATE SODIUM 100 MG CAPSULE PO ×2 (09:26→20:28)
[2023-04-14] MEDS: GABAPENTIN 400 MG CAPSULE 800 MG PO ×3 (09:26→17:12)
[2023-04-14] MEDS: MEGESTROL ACETATE (*CHEMO) ORAL SUSP 40 MG/ML SYR 400 MG PO ×2 (09:26→17:12)
[2023-04-14] MEDS: ENOXAPARIN 30 MG/0.3 ML SYRINGE SUB-Q (09:26)
[2023-04-14] MEDS: THIAMINE HCL 200 MG/2 ML VIAL 500 MG IV PUSH ×2 (09:27→17:12)
[2023-04-14] MEDS: CYANOCOBALAMIN 1,000 MCG TABLET 1000 MCG PO (09:27)
[2023-04-14] MEDS: PANTOPRAZOLE 40 MG TABLET PO ×2 (09:27→20:28)
[2023-04-14] MEDS: FOLIC ACID 1 MG TABLET PO (09:28)
[2023-04-14] MEDS: CLOPIDOGREL BISULFATE 75 MG TABLET PO (09:28)
[2023-04-14] MEDS: POTASSIUM CHLORIDE 20 MEQ TABLET.ER PO (09:28)
[2023-04-14] MEDS: DULoxetine HCL 60 MG CAPSULE.DR PO (09:28)
[2023-04-14] MEDS: THIAMINE HCL 100 MG TABLET PO (09:28)
[2023-04-14] MEDS: FUROSEMIDE 40 MG TABLET PO (09:28)
[2023-04-14] MEDS: FERROUS SULFATE 324 MG TABLET PO ×2 (09:28→17:12)
[2023-04-14] MEDS: SODIUM CHLORIDE 1 GM TABLET PO ×2 (09:28→17:12)
--- NOTE | 2023-04-14 11:33 | PM.IMPN ---
Progress Note: A&P Assessment and Plan (1) LUIS (acute kidney injury): Code(s): N17.9 - Acute kidney failure, unspecified Status: Acute Assessment and Plan: from dehydration. Will start on IV fluids and monitor BMP 04/13/2023 interval history: Patient with history of alcohol abuse presented with generalized weakness most likely secondary to anemia and dehydration, patient is given 1 unit of pack RBC, gently hydrate the and monitor kidney function, and electrolytes, patient with anemia, there is no obvious source of bleeding, his vitamin B12 and folic are normal, iron profile showed elevated ferritin suggest anemia of chronic disease, today patient is going into alcohol withdrawal is confused unable to provide any review of symptom, on 04/12 increase Librium to 50 mg q.6 p.r.n. with CIWA protocol, patient still remains confused will a thiamine 500 mg IV b.i.d. for 3 days thereafter 250 mg IV b.i.d. for 3 days and continue thiamine 100 mg p.o. q.day, patient also found to have urine culture positive for E coli ESBL multidrug resistant discussed with the ID pharmacy will start the patient on ertapenem and monitor, will have a PT OT evaluate the patient will benefit with rehab, patient's last drink was on 04/09 patient is high risk of DT, will monitor patient CIWA protocol. 04/14/2023: Patient with chronic alcohol abuse presented with generalized weakness unable to stand up. Lives with his brother. Found to be hypotensive and tachycardic with worsening anemia. Started on IV hydration. Transfuse 1 unit of packed red blood cell. No obvious source of bleeding. B12 and folic acid was normal. Iron profile showed elevated ferritin suggestive of anemia chronic disease. Also has alcohol withdrawal started on CIWA protocol Librium thiamine supplementation. Urine culture positive for E coli ESBL multi-drug resistant started on our type NM. PT OT to see last drink on 04/09/2023 high risk for DTs continue to monitor on CIWA protocol. Also had mild rhabdomyolysis CK level 2410 on admission with elevated liver enzymes secondary to chronic alcohol abuse. Continue maintenance fluid as ordered. He is do not resuscitate. DVT prophylaxis Lovenox. Mild leukocytosis persist. Continue to monitor H&H. Mild hyponatremia. Replace magnesium. LFTs improving slowly. CK level has normalized. Troponin negative. CT abdomen and pelvis with fluid scattered throughout small bowel without emma dilation or discrete transition point which could be related to either enteritis or ileus. Cholelithiasis mild sigmoid diverticulosis. Small fat containing left inguinal hernia. Chest x-ray with no acute cardiopulmonary disease. CT head is negative for any acute process. 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 Will hold Lasix (2) Rhabdomyolysis: Code(s): M62.82 - Rhabdomyolysis Status: Acute Assessment and Plan: mild rhabdomyolysis. IV fluids (3) Hyponatremia: Code(s): E87.1 - Hypo-osmolality and hyponatremia Status: Chronic Assessment and Plan: likely secondary to chronic alcoholism as well as not eating and drinking. He has received IV fluid boluses with NS. Will put him on D5 NS for maintenance fluid (4) Alcohol dependence: Code(s): F10.20 - Alcohol dependence, uncomplicated Status: Acute Assessment and Plan: monitor for alcohol withdrawal. Will put him on D5 NS as maintenance fluid. Will start him on oral thiamine and B12 supplement (5) Macrocytic anemia: Code(s): D53.9 - Nutritional anemia, unspecified Status: Acute Assessment and Plan: likely from B12 and folate deficiency. Will check serum B12 and folate levels in the morning. Start patient on oral thiamine B12 supplementation along with folic acid (6) Hypokalemia: Code(s): E87.6 - Hypokalemia Status: Acute Assessment and Plan:
[2023-04-14] MEDS: ERTAPENEM 1 GM/NS 50 ML 1 GM/50 ML BAG IVPB (11:46)
[2023-04-14] MEDS: MAGNESIUM SULF 2 GM/WATER 50ML 2 GM/50 ML BAG IVPB (12:34)
[2023-04-14] MEDS: ACETAMINOPHEN/CODEINE (*CRX) 300/30 MG TABLET 1 TAB PO ×2 (14:02→20:28)
--- NOTE | 2023-04-14 14:05 | PC.NURSE ---
patient to xray per bed.
--- NOTE | 2023-04-14 14:27 | PC.NURSE ---
patient returned to floor from xray
[2023-04-14] MEDS: NICOTINE (*PBKC) 21 MG PATCH 1 PATCH TRANSDERM (17:10)
[2023-04-14] MEDS: LIDOCAINE 5% PATCH 3 PATCH TRANSDERM (20:28)
[2023-04-15] VITALS (8 sets, daily range): BP systolic 94–110; BP diastolic 62–81; PULSE 87–108; RESP 14–20; TEMP 36.3–36.9; O2SAT 94–100
[2023-04-15] MEDS: DEXTROSE 5%/0.9% SOD CHL 1,000 ML 100 ML IV CONT ×2 (05:12→15:45)
[2023-04-15] MEDS: LEVOTHYROXINE SODIUM 25 MCG TABLET PO (05:12)
[2023-04-15 06:22] LABS: Hematocrit 23.7 % (42.0-52.0); Hemoglobin 7.5 g/dL (14.0-18.0); Mean Corpuscular HGB Conc 31.6 g/dl (32-36); Mean Corpuscular Hemoglobin 35.5 pg (26-34); Mean Corpuscular Volume 112.3 fl (80-100); Mean Platelet Volume 8.9 fl (7.4-10.4); Platelet Count Result 401 k/mm3 (150-375); Red Blood Count 2.11 M/mm3 (4.6-6.20)
[2023-04-15 07:08] LABS: Alanine Aminotransferase 42 U/L (6-50); Alkaline Phosphatase 121 U/L (38-126); Anion Gap -2 mmol/L (8-16); Aspartate Amino Transferase 40 U/L (17-59); Bilirubin,Total 0.3 mg/dL (0.2-1.3); Blood Urea Nitrogen 9 mg/dL (9-20); Calcium 7.3 mg/dL (8.4-10.2); Carbon Dioxide 34 mmol/L (22-30); Chloride 101 mmol/L (98-107); Estimated CRCL calculation 127 ml/min; Estimated Glomerular Filt Rate > 60; Glucose 99 mg/dL (65-110); Magnesium 1.7 mg/dL (1.6-2.3); Potassium 3.9 mmol/L (3.4-5.0); Sodium 133 mmol/L (137-145)
[2023-04-15] MEDS: POTASSIUM CHLORIDE 20 MEQ TABLET.ER PO (08:21)
[2023-04-15] MEDS: CYANOCOBALAMIN 1,000 MCG TABLET 1000 MCG PO (08:21)
[2023-04-15] MEDS: FERROUS SULFATE 324 MG TABLET PO ×2 (08:21→16:53)
[2023-04-15] MEDS: SODIUM CHLORIDE 1 GM TABLET PO ×2 (08:21→16:54)
[2023-04-15] MEDS: DULoxetine HCL 60 MG CAPSULE.DR PO (08:21)
[2023-04-15] MEDS: FOLIC ACID 1 MG TABLET PO (08:21)
[2023-04-15] MEDS: ENOXAPARIN 30 MG/0.3 ML SYRINGE SUB-Q (08:21)
[2023-04-15] MEDS: PANTOPRAZOLE 40 MG TABLET PO ×2 (08:21→21:12)
[2023-04-15] MEDS: MEGESTROL ACETATE (*CHEMO) ORAL SUSP 40 MG/ML SYR 400 MG PO ×2 (08:21→16:54)
[2023-04-15] MEDS: CLOPIDOGREL BISULFATE 75 MG TABLET PO (08:21)
[2023-04-15] MEDS: GABAPENTIN 400 MG CAPSULE 800 MG PO ×3 (08:22→16:53)
[2023-04-15] MEDS: THIAMINE HCL 200 MG/2 ML VIAL 500 MG IV PUSH ×2 (08:33→16:54)
[2023-04-15] MEDS: DOCUSATE SODIUM 100 MG CAPSULE PO (08:33)
[2023-04-15] MEDS: NICOTINE (*PBKC) 21 MG PATCH 1 PATCH TRANSDERM (08:33)
[2023-04-15] MEDS: ACETAMINOPHEN/CODEINE (*CRX) 300/30 MG TABLET 1 TAB PO ×2 (10:06→21:18)
[2023-04-15 11:31] LABS: Glucose Point of Care 112 mg/dl (65-105)
[2023-04-15] MEDS: ERTAPENEM 1 GM/NS 50 ML 1 GM/50 ML BAG IVPB (11:56)
--- NOTE | 2023-04-15 12:24 | P.CDI_ITS ---
CDI Query Clarification Request BMI 19.5 Nutritional Diagnostic Statement Moderate malnutrition related to inadequate protein intake and lack of nutrient dense foods with ETOH intake as evidence by poor intake for more than 1 month, family report, and NFPE findings. Please refer to the comprehensive nutrition assessment for further information. Please clarify severity of protein calorie Malnutrition * Mild * Moderate * Severe * Other / Unspecified
--- NOTE | 2023-04-15 12:31 | P.CDI_ITS ---
CDI Query Clarification Request BMI 19.5 Nutritional Diagnostic Statement Moderate Malnutrition related to inadequate protein intake and lack of nutrient dense foods with ETOH intake as evidence by poor intake for more than 1 month, family report, and NFPE findings Please refer to Comprehensive Nutrition Assessment for further information. Please clarify severity of protein calorie malnutrition * Mild * Moderate * Severe * Other / unspecified <Montserrat Green RN - Last Filed: 04/15/23 12:36> Provider Comments moderate malnutrition <Arturo Abraham MD - Last Filed: 04/15/23 17:20>
--- NOTE | 2023-04-15 15:40 | PM.IMPN ---
Progress Note: A&P Assessment and Plan (1) LUIS (acute kidney injury): Code(s): N17.9 - Acute kidney failure, unspecified Status: Acute Assessment and Plan: from dehydration. Will start on IV fluids and monitor BMP 04/13/2023 interval history: Patient with history of alcohol abuse presented with generalized weakness most likely secondary to anemia and dehydration, patient is given 1 unit of pack RBC, gently hydrate the and monitor kidney function, and electrolytes, patient with anemia, there is no obvious source of bleeding, his vitamin B12 and folic are normal, iron profile showed elevated ferritin suggest anemia of chronic disease, today patient is going into alcohol withdrawal is confused unable to provide any review of symptom, on 04/12 increase Librium to 50 mg q.6 p.r.n. with CIWA protocol, patient still remains confused will a thiamine 500 mg IV b.i.d. for 3 days thereafter 250 mg IV b.i.d. for 3 days and continue thiamine 100 mg p.o. q.day, patient also found to have urine culture positive for E coli ESBL multidrug resistant discussed with the ID pharmacy will start the patient on ertapenem and monitor, will have a PT OT evaluate the patient will benefit with rehab, patient's last drink was on 04/09 patient is high risk of DT, will monitor patient CIWA protocol. 04/14/2023: Patient with chronic alcohol abuse presented with generalized weakness unable to stand up. Lives with his brother. Found to be hypotensive and tachycardic with worsening anemia. Started on IV hydration. Transfuse 1 unit of packed red blood cell. No obvious source of bleeding. B12 and folic acid was normal. Iron profile showed elevated ferritin suggestive of anemia chronic disease. Also has alcohol withdrawal started on CIWA protocol Librium thiamine supplementation. Urine culture positive for E coli ESBL multi-drug resistant started on our type NM. PT OT to see last drink on 04/09/2023 high risk for DTs continue to monitor on CIWA protocol. Also had mild rhabdomyolysis CK level 2410 on admission with elevated liver enzymes secondary to chronic alcohol abuse. Continue maintenance fluid as ordered. He is do not resuscitate. DVT prophylaxis Lovenox. Mild leukocytosis persist. Continue to monitor H&H. Mild hyponatremia. Replace magnesium. LFTs improving slowly. CK level has normalized. Troponin negative. CT abdomen and pelvis with fluid scattered throughout small bowel without emma dilation or discrete transition point which could be related to either enteritis or ileus. Cholelithiasis mild sigmoid diverticulosis. Small fat containing left inguinal hernia. Chest x-ray with no acute cardiopulmonary disease. CT head is negative for any acute process. 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 Will hold Lasix 04/15/2023:Patient with chronic alcohol abuse presented with generalized weakness unable to stand up. Lives with his brother. Found to be hypotensive and tachycardic with worsening anemia. Started on IV hydration. Hemoglobin down to 6.3 on admission. Transfuse 1 unit of packed red blood cell. H&H has remained stable since then. No obvious source of bleeding. B12 and folic acid was normal. Iron profile showed elevated ferritin suggestive of anemia chronic disease. Also has alcohol withdrawal started on CIME protocol Librium thiamine supplementation. Urine culture positive for E coli ESBL multi-drug resistant started on Ertapenem complete 7 days course. PT OT to see last drink on 04/09/2023 high risk for DTs continue to monitor on CIWA protocol. Also had mild rhabdomyolysis CK level 2410 on admission with elevated liver enzymes secondary to chronic alcohol abuse. Continue maintenance fluid as ordered. He is do not resuscitate. DVT prophylaxis Lovenox. Mild leukocytosis persist. Continue to monitor H&H. Mild hyponatremia. Replace magnesium. LFTs improving slowly. CK level
[2023-04-15] MEDS: LIDOCAINE 5% PATCH 3 PATCH TRANSDERM (21:12)
[2023-04-16] VITALS (10 sets, daily range): BP systolic 104–113; BP diastolic 74–82; PULSE 87–109; RESP 14–16; TEMP 36.1–36.5; O2SAT 95–100
[2023-04-16] MEDS: DEXTROSE 5%/0.9% SOD CHL 1,000 ML 100 ML IV CONT (01:51)
[2023-04-16] MEDS: LEVOTHYROXINE SODIUM 25 MCG TABLET PO (05:49)
[2023-04-16 06:21] LABS: Hematocrit 25.2 % (42.0-52.0); Hemoglobin 7.8 g/dL (14.0-18.0); Mean Corpuscular Hemoglobin 35.1 pg (26-34); Mean Corpuscular Volume 113.5 fl (80-100); Mean Platelet Volume 8.7 fl (7.4-10.4); Platelet Count Result 433 k/mm3 (150-375); Red Blood Count 2.22 M/mm3 (4.6-6.20); White Blood Count 15.5 K/mm3 (4.5-10.0)
[2023-04-16 06:34] LABS: Alanine Aminotransferase 37 U/L (6-50); Albumin Level 2.2 g/dL (3.5-5.1); Alkaline Phosphatase 126 U/L (38-126); Anion Gap -1 mmol/L (8-16); Aspartate Amino Transferase 32 U/L (17-59); Bilirubin,Total 0.3 mg/dL (0.2-1.3); Blood Urea Nitrogen 9 mg/dL (9-20); Calcium 7.3 mg/dL (8.4-10.2); Carbon Dioxide 32 mmol/L (22-30); Chloride 105 mmol/L (98-107); Estimated CRCL calculation 155 ml/min; Estimated Glomerular Filt Rate > 60; Glucose 101 mg/dL (65-110); Magnesium 1.7 mg/dL (1.6-2.3); Potassium 4.7 mmol/L (3.4-5.0); Sodium 136 mmol/L (137-145)
[2023-04-16] MEDS: GABAPENTIN 400 MG CAPSULE 800 MG PO ×3 (08:44→18:22)
[2023-04-16] MEDS: DOCUSATE SODIUM 100 MG CAPSULE PO ×2 (08:44→20:32)
[2023-04-16] MEDS: CLOPIDOGREL BISULFATE 75 MG TABLET PO (08:44)
[2023-04-16] MEDS: MEGESTROL ACETATE (*CHEMO) ORAL SUSP 40 MG/ML SYR 400 MG PO ×2 (08:44→18:23)
[2023-04-16] MEDS: FERROUS SULFATE 324 MG TABLET PO ×2 (08:44→18:23)
[2023-04-16] MEDS: SODIUM CHLORIDE 1 GM TABLET PO ×2 (08:44→18:23)
[2023-04-16] MEDS: THIAMINE HCL 200 MG/2 ML VIAL 500 MG IV PUSH (08:45)
[2023-04-16] MEDS: FOLIC ACID 1 MG TABLET PO (08:45)
[2023-04-16] MEDS: POTASSIUM CHLORIDE 20 MEQ TABLET.ER PO (08:45)
[2023-04-16] MEDS: DULoxetine HCL 60 MG CAPSULE.DR PO (08:45)
[2023-04-16] MEDS: PANTOPRAZOLE 40 MG TABLET PO ×2 (08:45→20:32)
[2023-04-16] MEDS: CYANOCOBALAMIN 1,000 MCG TABLET 1000 MCG PO (08:45)
[2023-04-16] MEDS: ENOXAPARIN 30 MG/0.3 ML SYRINGE SUB-Q (08:46)
[2023-04-16] MEDS: ACETAMINOPHEN/CODEINE (*CRX) 300/30 MG TABLET 1 TAB PO ×2 (08:55→18:28)
[2023-04-16] MEDS: NICOTINE (*PBKC) 21 MG PATCH 1 PATCH TRANSDERM (09:03)
--- NOTE | 2023-04-16 10:45 | PM.IMPN ---
Progress Note: A&P Assessment and Plan (1) LUIS (acute kidney injury): Code(s): N17.9 - Acute kidney failure, unspecified Status: Acute Assessment and Plan: 04/13/2023 interval history: Patient with history of alcohol abuse presented with generalized weakness most likely secondary to anemia and dehydration, patient is given 1 unit of pack RBC, gently hydrate the and monitor kidney function, and electrolytes, patient with anemia, there is no obvious source of bleeding, his vitamin B12 and folic are normal, iron profile showed elevated ferritin suggest anemia of chronic disease, today patient is going into alcohol withdrawal is confused unable to provide any review of symptom, on 04/12 increase Librium to 50 mg q.6 p.r.n. with CIWA protocol, patient still remains confused will a thiamine 500 mg IV b.i.d. for 3 days thereafter 250 mg IV b.i.d. for 3 days and continue thiamine 100 mg p.o. q.day, patient also found to have urine culture positive for E coli ESBL multidrug resistant discussed with the ID pharmacy will start the patient on ertapenem and monitor, will have a PT OT evaluate the patient will benefit with rehab, patient's last drink was on 04/09 patient is high risk of DT, will monitor patient CIWA protocol. 04/14/2023: Patient with chronic alcohol abuse presented with generalized weakness unable to stand up. Lives with his brother. Found to be hypotensive and tachycardic with worsening anemia. Started on IV hydration. Transfuse 1 unit of packed red blood cell. No obvious source of bleeding. B12 and folic acid was normal. Iron profile showed elevated ferritin suggestive of anemia chronic disease. Also has alcohol withdrawal started on CIWA protocol Librium thiamine supplementation. Urine culture positive for E coli ESBL multi-drug resistant started on our type NM. PT OT to see last drink on 04/09/2023 high risk for DTs continue to monitor on CIWA protocol. Also had mild rhabdomyolysis CK level 2410 on admission with elevated liver enzymes secondary to chronic alcohol abuse. Continue maintenance fluid as ordered. He is do not resuscitate. DVT prophylaxis Lovenox. Mild leukocytosis persist. Continue to monitor H&H. Mild hyponatremia. Replace magnesium. LFTs improving slowly. CK level has normalized. Troponin negative. CT abdomen and pelvis with fluid scattered throughout small bowel without emma dilation or discrete transition point which could be related to either enteritis or ileus. Cholelithiasis mild sigmoid diverticulosis. Small fat containing left inguinal hernia. Chest x-ray with no acute cardiopulmonary disease. CT head is negative for any acute process. 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 Will hold Lasix 04/15/2023:Patient with chronic alcohol abuse presented with generalized weakness unable to stand up. Lives with his brother. Found to be hypotensive and tachycardic with worsening anemia. Started on IV hydration. Hemoglobin down to 6.3 on admission. Transfuse 1 unit of packed red blood cell. H&H has remained stable since then. No obvious source of bleeding. B12 and folic acid was normal. Iron profile showed elevated ferritin suggestive of anemia chronic disease. Also has alcohol withdrawal started on CIWV protocol Librium thiamine supplementation. Urine culture positive for E coli ESBL multi-drug resistant started on Ertapenem complete 7 days course. PT OT to see last drink on 04/09/2023 high risk for DTs continue to monitor on CIWA protocol. Also had mild rhabdomyolysis CK level 2410 on admission with elevated liver enzymes secondary to chronic alcohol abuse. Continue maintenance fluid as ordered. He is do not resuscitate. DVT prophylaxis Lovenox. Mild leukocytosis persist. Continue to monitor H&H. Mild hyponatremia. Replace magnesium. LFTs improving slowly. CK level has normalized. Troponin negative. CT abdomen and pelvis w
[2023-04-16] MEDS: ERTAPENEM 1 GM/NS 50 ML 1 GM/50 ML BAG IVPB (11:31)
[2023-04-16] MEDS: THIAMINE HCL 200 MG/2 ML VIAL 250 MG IV PUSH (18:23)
[2023-04-16] MEDS: LIDOCAINE 5% PATCH 3 PATCH TRANSDERM (20:32)
[2023-04-17] VITALS (9 sets, daily range): BP systolic 103–106; BP diastolic 67–71; PULSE 88–109; RESP 14–20; TEMP 36.3–36.9; O2SAT 96–99
[2023-04-17] MEDS: ACETAMINOPHEN/CODEINE (*CRX) 300/30 MG TABLET 1 TAB PO ×2 (02:42→20:47)
[2023-04-17 06:28] LABS: Hematocrit 25.4 % (42.0-52.0); Hemoglobin 7.8 g/dL (14.0-18.0); Mean Corpuscular HGB Conc 30.7 g/dl (32-36); Mean Corpuscular Hemoglobin 34.8 pg (26-34); Mean Corpuscular Volume 113.4 fl (80-100); Mean Platelet Volume 8.8 fl (7.4-10.4); Platelet Count Result 503 k/mm3 (150-375); Red Blood Count 2.24 M/mm3 (4.6-6.20); White Blood Count 14.2 K/mm3 (4.5-10.0)
[2023-04-17 06:41] LABS: Alanine Aminotransferase 31 U/L (6-50); Albumin Level 2.2 g/dL (3.5-5.1); Alkaline Phosphatase 115 U/L (38-126); Anion Gap 2 mmol/L (8-16); Aspartate Amino Transferase 29 U/L (17-59); Bilirubin,Total 0.3 mg/dL (0.2-1.3); Blood Urea Nitrogen 9 mg/dL (9-20); Calcium 7.8 mg/dL (8.4-10.2); Carbon Dioxide 28 mmol/L (22-30); Chloride 103 mmol/L (98-107); Estimated CRCL calculation 127 ml/min; Estimated Glomerular Filt Rate > 60; Glucose 100 mg/dL (65-110); Magnesium 1.7 mg/dL (1.6-2.3); Potassium 4.9 mmol/L (3.4-5.0); Sodium 133 mmol/L (137-145)
[2023-04-17] MEDS: LEVOTHYROXINE SODIUM 25 MCG TABLET PO (07:04)
[2023-04-17] MEDS: FUROSEMIDE 40 MG TABLET PO (09:10)
[2023-04-17] MEDS: THIAMINE HCL 100 MG TABLET PO (09:10)
[2023-04-17] MEDS: CLOPIDOGREL BISULFATE 75 MG TABLET PO (09:10)
[2023-04-17] MEDS: DOCUSATE SODIUM 100 MG CAPSULE PO ×2 (09:10→20:25)
[2023-04-17] MEDS: POTASSIUM CHLORIDE 20 MEQ TABLET.ER PO (09:11)
[2023-04-17] MEDS: ENOXAPARIN 30 MG/0.3 ML SYRINGE SUB-Q (09:11)
[2023-04-17] MEDS: DULoxetine HCL 60 MG CAPSULE.DR PO (09:11)
[2023-04-17] MEDS: GABAPENTIN 400 MG CAPSULE 800 MG PO ×3 (09:11→17:21)
[2023-04-17] MEDS: PANTOPRAZOLE 40 MG TABLET PO ×2 (09:11→20:22)
[2023-04-17] MEDS: FOLIC ACID 1 MG TABLET PO (09:11)
[2023-04-17] MEDS: CYANOCOBALAMIN 1,000 MCG TABLET 1000 MCG PO (09:12)
[2023-04-17] MEDS: MEGESTROL ACETATE (*CHEMO) ORAL SUSP 40 MG/ML SYR 400 MG PO ×2 (09:12→17:22)
[2023-04-17] MEDS: SODIUM CHLORIDE 1 GM TABLET PO ×2 (09:12→17:23)
--- NOTE | 2023-04-17 09:28 | PCNFU ---
Nutrition Follow-Up Complete: Moderate malnutrition related to inadequate protein intake and lack of nutrient dense foods with ETOH intake as evidenced by poor intake for more than 1 month, family report, and NFPE findings. Goal:PO intake 75% or greater most meals and supplements - Progressing to goal Pt current nutrition is Regular diet. Intakes 25-100%. Ensure Enlive BID for additional 350 kcal and 20 g protein each. Some intakes of supplement recorded. Nutrition recommendation: Continue with current care plan. Agree with orders Last recorded weight is 65.4 kg. - Maintaining weight Bowel Motility: +1 BM 04/16/23 Labs Reviewed:Hgb 7.8, Hct 25., Alb 22, Na 133, cre 0.5 Meds Noted: Thiamine, Folic acid, Zofran, Lovenox Skin: No pressure injury. DTI to L buttock, open to air Additional Notes: Meal intakes are good, improved. Still weak. Agree with current care plan and monitoring. Monitor intake, wt, labs. Follow up in 7 days.
[2023-04-17] MEDS: NICOTINE (*PBKC) 21 MG PATCH 1 PATCH TRANSDERM (10:13)
--- NOTE | 2023-04-17 11:48 | PM.IMPN ---
Progress Note: A&P Assessment and Plan (1) LUIS (acute kidney injury): Code(s): N17.9 - Acute kidney failure, unspecified Status: Acute Assessment and Plan: resolved. Will resume Lasix. IV fluids stopped (2) Rhabdomyolysis: Code(s): M62.82 - Rhabdomyolysis Status: Acute Assessment and Plan: mild rhabdomyolysis. resolved (3) Hyponatremia: Code(s): E87.1 - Hypo-osmolality and hyponatremia Status: Chronic Assessment and Plan: likely secondary to chronic alcoholism as well as malnutrition. On salt tablets (4) Alcohol dependence: Code(s): F10.20 - Alcohol dependence, uncomplicated Status: Acute Assessment and Plan: monitor for alcohol withdrawal. continue on oral thiamine and B12 supplement (5) Macrocytic anemia: Code(s): D53.9 - Nutritional anemia, unspecified Status: Acute Assessment and Plan: likely from B12 and folate deficiency. on oral thiamine B12 supplementation along with folic acid (6) Weakness: Code(s): R53.1 - Weakness Status: Acute Assessment and Plan: pending placement Plan DNR Regular diet Lovenox for DVT prophylaxis Subjective Date/time seen: 04/17/23 11:48 Interval history: patient reports burning with micturition Review of Systems Review of Systems: All systems reviewed & are unremarkable except as noted in HPI and below Exam Narrative: Appears chronically ill older than his age Patient is comfortable, NAD HEENT: eyes are clear and none icteric LUNGS: Normal respiratory effort bilateral clear to auscultation ABD: Not distended soft nontender Lower extremities: no edema cyanosis or clubbing SKIN: nonjaundiced Neuro: grossly intact. Objective Data Vital Signs Vital Signs: Vital Signs - 24 hr 04/16/23 12:00 04/16/23 13:17 04/16/23 14:00 Temperature 97.5 F L 97.7 F Pulse Rate 109 H 105 H 102 H Respiratory Rate 16 14 Blood Pressure 109/81 113/77 Pulse Oximetry 98 100 Oxygen Delivery 04/16/23 16:00 04/16/23 21:35 04/16/23 20:00 Temperature 97 F L Pulse Rate 106 H 95 Respiratory Rate 14 Blood Pressure 107/82 Pulse Oximetry 97 Oxygen Delivery Room Air 04/16/23 20:00 04/17/23 00:00 04/17/23 04:00 Temperature Pulse Rate 96 88 97 Respiratory Rate Blood Pressure Pulse Oximetry Oxygen Delivery 04/17/23 06:00 04/17/23 09:15 04/17/23 08:00 Temperature 97.3 F L Pulse Rate 96 96 Respiratory Rate 14 Blood Pressure 104/68 Pulse Oximetry 99 Oxygen Delivery Room Air Intake/Output Intake/Output: Intake & Output 04/14/23 04/15/23 04/16/23 04/17/23 23:59 23:59 23:59 23:59 Intake Total 3320 / 3320 3050 / 3050 3712 / 3712 740 / 740 Balance 3320 / 3320 3050 / 3050 3712 / 3712 740 / 740 Meds/Results Medications: Active Medications Generic Name Dose Route Start Last Admin Trade Name Freq PRN Reason Stop Dose Admin Acetaminophen 650 mg 04/10/23 19:37 04/13/23 20:59 Acetaminophen 325 Mg Tablet PO 650 mg Q4H PRN Administration Mild Pain (1-3) or Fever Acetaminophen/Codeine Phosphate 1 tab 04/14/23 13:46 04/17/23 02:42 Acetaminophen/Codeine (*Crx) 300/30 Mg Tablet PO 1 tab Q4H PRN Administration Pain Rated 4-6 Albuterol 2.5 mg 04/11/23 08:57 Albuterol Sulfate Neb 2.5 Mg/3 Ml Inh INHALATION Q6HRT PRN Shortness Of Breath Chlordiazepoxide HCl 25 mg 04/11/23 17:25 Chlordiazepoxide (*Crx) 25 Mg Capsule PO Q6HR PRN Alcohol Withdrawal Chlordiazepoxide HCl 50 mg 04/12/23 08:39 04/12/23 09:00 Chlordiazepoxide (*Crx) 25 Mg Capsule PO 50 mg Q6HR PRN Administration Alcohol Withdrawal Clopidogrel Bisulfate 75 mg 04/11/23 09:00 04/17/23 09:10 Clopidogrel Bisulfate 75 Mg Tablet PO 75 mg QAM NESSA Administration Cyanocobalamin 1,000 mcg 04/11/23 09:00 04/17/23 09:12 Cyanocobalamin 1,000
[2023-04-17] MEDS: ERTAPENEM 1 GM/NS 50 ML 1 GM/50 ML BAG IVPB (12:28)
[2023-04-17 17:46] LABS: Appearance Urine Clear (Clear); Bacteria Urine 2+ /hpf; Bilirubin Urine Negative (Negative); Blood Urine Negative (Negative); Color Urine Yellow (Yellow); Glucose Urine UA Negative (Negative); Ketones Urine Negative (Negative); Leukocyte Esterase Ur Trace LEU/UL (NEGATIVE); Nitrate Urine Negative (Negative); Non Pathogenic Casts 0-2; Protein Urine Negative (Negative); RBC Urine 0-2 /hpf (0-2); Specific Grav Ur 1.008 (1.001-1.035); Squamous Epithelial Cell Urine None seen /hpf (Few); Urobilinogen Urine 0.2 mg/dL (<2.0); WBC Urine 0-5 /hpf (0-3); pH Urine 7.5 (5.0-9.0)
[2023-04-17 17:48] LABS: Add Urine Microscopic? YES
[2023-04-17] MEDS: LIDOCAINE 5% PATCH 3 PATCH TRANSDERM (20:25)
[2023-04-18] VITALS: PULSE 90
[2023-04-18 04:00] VITALS: PULSE 93
[2023-04-18] MEDS: LEVOTHYROXINE SODIUM 25 MCG TABLET PO (05:44)
[2023-04-18 06:25] VITALS: BP 102/68; PULSE 100; RESP 16; TEMP 36.5; O2SAT 97
[2023-04-18 06:28] LABS: Hematocrit 25.4 % (42.0-52.0); Mean Corpuscular HGB Conc 31.5 g/dl (32-36); Mean Corpuscular Hemoglobin 35.2 pg (26-34); Mean Corpuscular Volume 111.9 fl (80-100); Mean Platelet Volume 8.3 fl (7.4-10.4); Platelet Count Result 505 k/mm3 (150-375); Red Blood Count 2.27 M/mm3 (4.6-6.20); White Blood Count 15.7 K/mm3 (4.5-10.0)
[2023-04-18 06:58] LABS: Alanine Aminotransferase 28 U/L (6-50); Albumin Level 2.4 g/dL (3.5-5.1); Alkaline Phosphatase 120 U/L (38-126); Anion Gap 1 mmol/L (8-16); Aspartate Amino Transferase 32 U/L (17-59); Bilirubin,Total 0.3 mg/dL (0.2-1.3); Blood Urea Nitrogen 10 mg/dL (9-20); Calcium 7.9 mg/dL (8.4-10.2); Carbon Dioxide 29 mmol/L (22-30); Chloride 101 mmol/L (98-107); Estimated CRCL calculation 127 ml/min; Estimated Glomerular Filt Rate > 60; Glucose 105 mg/dL (65-110); Magnesium 1.8 mg/dL (1.6-2.3); Potassium 5.4 mmol/L (3.4-5.0); Sodium 131 mmol/L (137-145)
[2023-04-18] MEDS: FOLIC ACID 1 MG TABLET PO (09:23)
[2023-04-18] MEDS: PANTOPRAZOLE 40 MG TABLET PO (09:23)
[2023-04-18] MEDS: DULoxetine HCL 60 MG CAPSULE.DR PO (09:23)
[2023-04-18] MEDS: SODIUM CHLORIDE 1 GM TABLET PO (09:23)
[2023-04-18] MEDS: DOCUSATE SODIUM 100 MG CAPSULE PO (09:23)
[2023-04-18] MEDS: GABAPENTIN 400 MG CAPSULE 800 MG PO ×2 (09:23→12:00)
[2023-04-18] MEDS: CYANOCOBALAMIN 1,000 MCG TABLET 1000 MCG PO (09:23)
[2023-04-18] MEDS: CLOPIDOGREL BISULFATE 75 MG TABLET PO (09:23)
[2023-04-18] MEDS: FUROSEMIDE 40 MG TABLET PO (09:23)
[2023-04-18] MEDS: NICOTINE (*PBKC) 21 MG PATCH 1 PATCH TRANSDERM (09:24)
[2023-04-18] MEDS: FERROUS SULFATE 324 MG TABLET PO (09:24)
[2023-04-18] MEDS: MEGESTROL ACETATE (*CHEMO) ORAL SUSP 40 MG/ML SYR 400 MG PO (09:24)
[2023-04-18] MEDS: ENOXAPARIN 30 MG/0.3 ML SYRINGE SUB-Q (09:24)
[2023-04-18] MEDS: ACETAMINOPHEN/CODEINE (*CRX) 300/30 MG TABLET 1 TAB PO (09:29)
--- NOTE | 2023-04-18 10:45 | PCOTNOTE ---
Attempted to see Patient at this time. Patient declined treatment at this time due to feeling tired, Patient requested therapist return this afternoon.
--- NOTE | 2023-04-18 11:06 | PM.DS ---
DS: Admitting Diagnosis Discharge Date 04/18/2023 Admitting Diagnosis Generalized weakness LUIS Rhabdomyolysis DS: Discharge Diagnosis Discharge Diagnosis (1) Rhabdomyolysis: Code(s): M62.82 - Rhabdomyolysis Status: Acute (2) LUIS (acute kidney injury): Code(s): N17.9 - Acute kidney failure, unspecified Status: Acute (3) Debility, unspecified: Code(s): R53.81 - Other malaise Status: Acute (4) Hyponatremia: Code(s): E87.1 - Hypo-osmolality and hyponatremia Status: Chronic DS: Summary Hospital Course Hospital Course: Patient with chronic alcohol abuse presented with generalized weakness unable to stand up.? Lives with his brother.? Found to be hypotensive and tachycardic with worsening anemia.? Started on IV hydration.? ? Hemoglobin down to 6.3 on admission. Transfuse 1 unit of packed red blood cell.? H&H has remained stable since then.? No obvious source of bleeding.? B12 and folic acid was normal.? Iron profile showed elevated ferritin suggestive of anemia chronic disease.? Also has alcohol withdrawal started on CIDE protocol Librium thiamine supplementation.? Urine culture positive for E coli ESBL multi-drug resistant started on? Ertapenem complete? 7 days course Until 04/18/2023.? PT OT consulted.? Continues to evaluate.? Needs rehab placement. Also had mild rhabdomyolysis CK level 2410 on admission with elevated liver enzymes secondary to chronic alcohol abuse.? Patient received IV fluids. CK level has normalized.? CT abdomen and pelvis with fluid scattered throughout small bowel without emma dilation or discrete transition point which could be related to either enteritis or ileus.? Cholelithiasis mild sigmoid diverticulosis.? Small fat containing left inguinal hernia.? Chest x-ray with no acute cardiopulmonary disease.? CT head is negative for any acute process.? 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 ?Patient also had a quiet the time of admission which has resolved with IV fluid. At this time he is stable and is being discharged to residential facility Time Spent with Patient Time attestation: Total time spent providing and/or coordinating discharge services: Exam Narrative: Appears chronically ill older than his age Patient is comfortable, NAD HEENT: eyes are clear and none icteric LUNGS: Normal respiratory effort bilateral clear to auscultation ABD: Not distended soft nontender Lower extremities: no edema cyanosis or clubbing SKIN: nonjaundiced Neuro: grossly intact. DS: Data Data Completed and Pending Labs on day of discharge: Labs from last 24 hours 04/18/23 04/17/23 06:21 17:32 WBC 15.7 H RBC 2.27 L Hgb 8.0 L Hct 25.4 L MCV 111.9 H MCH 35.2 H MCHC 31.5 L RDW 26.0 H Plt Count 505 H MPV 8.3 Sodium 131 L Potassium 5.4 H Chloride 101 Carbon Dioxide 29 Anion Gap 1 L BUN 10 Creatinine 0.50 L Estim Creat Clear Calc 127 Estimated GFR > 60 Glucose 105 Calcium 7.9 L Magnesium 1.8 Total Bilirubin 0.3 AST 32 ALT 28 Alkaline Phosphatase 120 Total Protein 6.0 L Albumin 2.4 L Urine Color Yellow Urine Appearance Clear Urine pH 7.5 Ur Specific [place] 1.008 Urine Protein Negative Urine Glucose (UA) Negative Urine Ketones Negative Ur Blood (Man) Negative Urine Nitrate Negative Urine Bilirubin Negative Urine Urobilinogen 0.2 Ur Leukocyte Esterase Trace H Urine RBC 0-2 Urine WBC 0-5 Ur Squamous Epith Cells None seen Urine Bacteria 2+ H Urine Casts 0-2 Discharge Plan Discharge Discharging Clinician: Zackery Gross Anticipated Discharge Date/Time: 04/17/23 15:01 Patient Disposition: SNF Activity: no preference Diet: heart healthy Patient Instructions: Acute Kidney Injury (DC), Rhabdomyolysis (DC) Stand Alone Forms: General Discharge Information Discharge Medicati
[2023-04-18] MEDS: THIAMINE HCL 100 MG TABLET PO (12:00)
[2023-04-18] MEDS: ERTAPENEM 1 GM/NS 50 ML 1 GM/50 ML BAG IVPB (12:00)
[2023-04-18 12:30] LABS: EDCOVIDSCREEN Negative (Negative)
== END 2023-04-18 13:25 | DRG 463 ==
LOC: ANHED 18:00 → ANH3MEDSUR 04-11 00:37
PROVIDERS: Family Medicine; Internal Medicine; Admitting Provider Hospitalist; Emergency Provider Emergency Medicine; PCP Hospitalist; Visit Provider Hospitalist
DX: N39.0 Urinary tract infection, site not specified (principal); N17.9 Acute kidney failure, unspecified; E44.0 Moderate protein-calorie malnutrition; I11.0 Hypertensive heart disease with heart failure; I95.9 Hypotension, unspecified; E87.1 Hypo-osmolality and hyponatremia; I50.9 Heart failure, unspecified; I69.354 Hemiplegia and hemiparesis following cerebral infarction affecting left non-dominant side; Z16.12 Extended spectrum beta lactamase (ESBL) resistance; B96.20 Unspecified Escherichia coli [E. coli] as the cause of diseases classified elsewhere; D53.9 Nutritional anemia, unspecified; E87.6 Hypokalemia; E03.9 Hypothyroidism, unspecified; F17.210 Nicotine dependence, cigarettes, uncomplicated; E86.0 Dehydration; F10.20 Alcohol dependence, uncomplicated; F10.239 Alcohol dependence with withdrawal, unspecified; K21.9 Gastro-esophageal reflux disease without esophagitis; K40.90 Unilateral inguinal hernia, without obstruction or gangrene, not specified as recurrent; K80.20 Calculus of gallbladder without cholecystitis without obstruction; K57.90 Diverticulosis of intestine, part unspecified, without perforation or abscess without bleeding; M62.82 Rhabdomyolysis; R53.1 Weakness; R82.90 Unspecified abnormal findings in urine; Z20.822 Contact with and (suspected) exposure to COVID-19; Z68.1 Body mass index [BMI] 19.9 or less, adult; Z86.16 Personal history of COVID-19
CPT/HCPCS: 36415; 36430; 70450; 71045; 72070; 72100; 74176; 80048; 80053; 80307; 81001; 82550; 82607; 82728; 82746; 82948; 83540; 83550; 83605; 83690; 83735; 83880; 84484; 85014; 85018; 85025; 85027; 85055; 85610; 85730; 86850; 86900; 86901; 86923; 87040; 87077; 87086; 87186; 87426; 87637; 93005; 96360; 96365; 96366; 97110; 97162; 97165; 97530; 97535; 99285; A9270; C9803; G0378; G0379; J0696; J1335; J1650; J3411; J3475; J3480; J7030; J7040; J7042; J7050; P9016

== ENCOUNTER 2023-06-20 13:47 | Inpatient (IN) | payer OTHER, SELFPAY ==
[2023-06-20] VITALS (21 sets, daily range): BP systolic 77–106; BP diastolic 38–91; PULSE 72–104; RESP 14–20; TEMP 36.5–37.1; O2SAT 89–100; BMI 19.4
--- NOTE | ~2023-06-20 | XR_ITS ---
MODIFIED ESOPHAGRAM HISTORY: Dysphagia presenting with coughing with intake TECHNIQUE: Modified barium esophagram was performed on 06/26/2023. I administered fluoroscopy and perfo rmed the exam with speech pathologist. Patient was seated for lateral fluoroscopic imaging for inges tion of thin liquids in quantified amounts, followed by thin liquids in uncontrolled amounts. This wa s recorded on tape. A single fluoroscopic spot image was also recorded. The DAP for this procedure wa s 15.01 Gycm2. The amount of fluoroscopy time used during this procedure was 5.4 minutes. FINDINGS: Patient is poorly responsive and compliant resulting in suboptimal positioning which limits visualiza tion. Oral stage: Reduced lingual movement. Pharyngeal stage: There is increased opacity in the vallecula, piriform sinus and along the pharyngea l wall. No laryngeal penetration or aspiration appreciated although sensitivity is significantly limi jemma by patient positioning and suboptimal imaging. Cervical/esophageal stage: There is esophageal/pharyngeal backflow. IMPRESSION: Significantly limited study demonstrating components of dysphagia in the oral, pharyngeal and esophageal stages. Please correlate with speech pathologist findings and specific feeding recom mendations. Reviewed, dictated and finalized at location A. IMPRESSION: Significantly limited study demonstrating components of dysphagia i n the oral, pharyngeal and esophageal stages. Please correlate with speech pat hologist findings and specific feeding recommendations.
--- NOTE | ~2023-06-20 | XR_ITS ---
EXAMINATION: XR chest 1V portable DATE: 06/29/2023 02:07 INDICATION: Wheezing and tachypnea TECHNIQUE: frontal view of the chest was obtained. COMPARISON: Chest radiograph dated 06/28/2023 FINDINGS: Nasogastric tube extends below the left hemidiaphragm with distal tip collimated off the study. Righ t upper extremity peripherally inserted central venous catheter (PICC) tip at the caudal superior ve na cava. Persistent opacities in bilateral lower lung zones with some improvement in the mid lung zones. Blunt ing of the right costophrenic angle consistent with small right pleural effusion. No pneumothorax or definitive left pleural effusion. The cardiomediastinal silhouette is normal. IMPRESSION: 1. Some interval improvement in bilateral lower lung predominant opacities consistent with pneumonia and/or pulmonary edema. 2. Small right pleural effusion. Reviewed, dictated and finalized at location A. IMPRESSION: 1. Some interval improvement in bilateral lower lung predominant opacities cons istent with pneumonia and/or pulmonary edema. 2. Small right pleural effusion.
--- NOTE | ~2023-06-20 | XR_ITS ---
EXAMINATION: [id number] INDICATION: NG tube placement TECHNIQUE: Portable AP view of the upper abdomen is obtained. COMPARISON: None available FINDINGS: The nasogastric tube is in the stomach. Small amount of contrast material projects near the tip of the tube in the stomach. There are small pleural effusions. There are minimal airspace opacit ies of the visualized lung bases, atelectasis versus pneumonia. There is a partially imaged right-luis antonio ed catheter ending with its tip in the distal superior vena cava. IMPRESSION: 1. Nasogastric tube in the stomach. Reviewed, dictated and finalized at location F.
--- NOTE | ~2023-06-20 | CT_ITS ---
EXAMINATION: CT brain wo con DATE: 06/20/2023 14:39 INDICATION: Generalized weakness. No appetite. TECHNIQUE: Computed tomography (CT) of the head was performed without intravenous contrast. The mA wa s adjusted according to patient size. Iterative reconstruction technique was employed. Exam dose: 60 5.33 mGy-cm total exam DLP. COMPARISON: 04/10/2023 CT brain FINDINGS: There is prominent central and cortical cerebral and cerebellar atrophy, much greater than expected for patient's chronological age of 58 years. Anterolateral left cerebellar hemispheric infarct, chronic,, stable since 04/10/2023. Bilateral chroni c occipital infarcts, left larger than right. Chronic left basal ganglia lacunar infarct. There is nonspecific diminished attenuation of the cerebral white matter, likely due to chronic small vessel ischemic changes. No intracranial mass lesion or hemorrhage, midline shift or mass effect or subdural or epidural hemat flor is detected. There is an opacified posterior right ethmoid air cell. The paranasal sinuses and mastoid air cells a re otherwise unremarkable. No fracture or bone destruction of the cranial vault. IMPRESSION: Prominent central and cortical cerebral and cerebellar atrophy, greater than expected fo r age Chronic bilateral occipital infarcts, left larger than right, chronic left cerebellar hemispheric inf arcts and chronic left basal ganglia lacunar infarct, all stable since 04/10/2023 Reviewed, dictated and finalized at Location A. Reviewed, dictated and finalized at location A. IMPRESSION: Prominent central and cortical cerebral and cerebellar atrophy, gr eater than expected for age Chronic bilateral occipital infarcts, left larger than right, chronic left cere bellar hemispheric infarcts and chronic left basal ganglia lacunar infarct, all stable since 04/10/2023
--- NOTE | ~2023-06-20 | XR_ITS ---
EXAMINATION: XR barium swallow modified DATE: 06/23/2023 14:09 INDICATION: Dysphagia. TECHNIQUE: The patient was given barium-containing material of multiple consistencies to swallow by t delmi speech pathologist while I performed fluoroscopy. Dose-area product was 0.429 Gy-cm2. 0.1 minutes fluoroscopy time FINDINGS: The patient was unable to cooperate for the procedure. IMPRESSION: Procedure canceled due to patient inability to cooperate. Reviewed, dictated and finalized at Location A. Reviewed, dictated and finalized at location A.
--- NOTE | ~2023-06-20 | XR_ITS ---
EXAMINATION: XR chest 1V portable DATE: 06/30/2023 06:41 INDICATION: Pulmonary edema TECHNIQUE: frontal view of the chest was obtained. COMPARISON: Chest radiograph dated 06/29/2023 FINDINGS: Nasogastric tube and small amount of contrast in the proximal stomach with a nasogastric tube extendi ng beyond the caudal margin of the [id number]. Right upper extremity peripherally inserted central venous catheter (PICC) tip at the superior cavoatrial junction. Opacities in the bilateral mid and lower lung zones, greater and with some interval increase on the right. This includes an increasing small right pleural effusion which tracks along the fissures. No p neumothorax. The cardiomediastinal silhouette is normal. IMPRESSION: 1. Opacities in bilateral mid and lower lung zones which could represent pneumonia or pulmonary edema . 2. Small right pleural effusion. Reviewed, dictated and finalized at location A. IMPRESSION: 1. Opacities in bilateral mid and lower lung zones which could represent pneumo christal or pulmonary edema. 2. Small right pleural effusion.
--- NOTE | ~2023-06-20 | CT_ITS ---
EXAMINATION: CT abdomen pelvis w con DATE: 06/28/2023 15:43 INDICATION: Abdominal pain. Anemia. TECHNIQUE: Computed tomography (CT) of the abdomen and pelvis was performed with 100 mL Omnipaque 350 intravenous contrast. Automated exposure control and iterative reconstruction technique were employe d. The dose-length product was 979.68 mGy-cm. COMPARISON: CT abdomen and pelvis 04/10/2023 FINDINGS: There are dependent airspace and groundglass opacities in the lower lobes. There are small pleural effusions. There is right ventricular enlargement of the heart. There are coronary artery franklin cifications. No pericardial effusion. The liver demonstrates focal steatosis adjacent to the falcifor m ligament. The gallbladder is contracted. The spleen, pancreas, and adrenal glands are normal. There is cortical thinning in the kidneys. There are cysts in left kidney measuring up to 9 mm. The bladde r is decompressed by a Ca catheter. There is a left inguinal hernia containing fat. There is diver ticulosis of the colon without evidence of diverticulitis. There is diffuse wall thickening of the co jack. The appendix is normal. There are no dilated loops of bowel. The nasogastric tube tip is in the stomach. There are no pathologically enlarged lymph nodes. There is no free intraperitoneal fluid. Paolo dy wall edema is noted. There is edema of the intra-abdominal fat. There is a chronic compression fra cture of L2. Thoracolumbar dextroscoliosis is noted. IMPRESSION: 1. Dependent airspace and groundglass opacities in the lower lobes, consistent with pneumonia. 2. Small pleural effusions. 3. Diffuse wall thickening of the colon, consistent with colitis versus interstitial edema. Reviewed, dictated and finalized at location B. IMPRESSION: 1. Dependent airspace and groundglass opacities in the lower lobes, consistent with pneumonia. 2. Small pleural effusions. 3. Diffuse wall thickening of the colon, consistent with colitis versus interst itial edema.
--- NOTE | ~2023-06-20 | MR_ITS ---
EXAMINATION: MR brain/brain stem wo/w con DATE: 06/28/2023 15:33 INDICATION: Altered mental status. TECHNIQUE: Magnetic resonance imaging (MRI) of the brain and brainstem was performed without and with 17 mL MultiHance intravenous contrast. COMPARISON: Brain MRI 07/17/2021, head CT 06/20/2023 FINDINGS: There is an old infarct involving left parietal occipital region. There is an old infarct i n right occipital lobe. There is a small old infarct in left frontoparietal region. There are scatter ed areas of nonspecific increased T2-weighted signal intensity in the cerebral white matter. There is no intracranial hemorrhage, acute infarction, or abnormal intracranial mass lesion. The ventricles a re normal in size. There is mild mucosal thickening in the ethmoid sinuses. There are likely changes of ocular lens replacement surgeries. There is a trace left mastoid effusion. IMPRESSION: 1. Old infarcts in the left parietal-occipital region, left frontoparietal region, and right occipita l lobe. 2. Mild nonspecific cerebral white matter disease, which likely represents chronic small vessel ische jaquelin disease. Reviewed, dictated and finalized at location B. IMPRESSION: 1. Old infarcts in the left parietal-occipital region, left frontoparietal luis fernando on, and right occipital lobe. 2. Mild nonspecific cerebral white matter disease, which likely represents farmhand janie small vessel ischemic disease.
--- NOTE | ~2023-06-20 | XR_ITS ---
EXAMINATION: XR chest 1V portable INDICATION: Hypoxia TECHNIQUE: Portable AP chest at 1658 hours COMPARISON: 06/20/2023 FINDINGS: A right upper extremity PICC ends with its tip at the superior cavoatrial junction. The melonie ogastric tube is followed as far as the stomach. Its tip is beyond the inferior margin of the radiogr aph. Cardiomegaly is noted. Diffuse interstitial and airspace opacities are present throughout all li ng zones. Small pleural effusions are suggested. There is no pneumothorax. IMPRESSION: 1. Diffuse lung disease, consistent with pneumonia and/or pulmonary edema. 2. Cardiomegaly. 3. Probable small pleural effusions. Reviewed, dictated and finalized at location F.
--- NOTE | ~2023-06-20 | US_ITS ---
EXAMINATION: US renal BI DATE: 06/21/2023 08:58 INDICATION: Acute renal failure TECHNIQUE: Multiple ultrasound grayscale images of the kidneys were obtained. COMPARISON: None. FINDINGS: The right kidney measures 10.3 x 5.1 x 4.4 cm. The left kidney measures 10.6 x 5.7 x 4.1 cm. The kidn eys demonstrate normal echogenicity. There is no hydronephrosis in either kidney. No stones identifi ed. Small amount of hypoechoic sludge layering in the dependent aspect of the otherwise normal-appear ing bladder. Bilateral ureteral jets are visualized with color Doppler. IMPRESSION: 1. Normal kidneys without hydronephrosis. Reviewed, dictated and finalized at location A.
--- NOTE | ~2023-06-20 | XR_ITS ---
EXAMINATION: XR chest 1V DATE: 06/20/2023 14:42 INDICATION: Weakness TECHNIQUE: frontal view of the chest was obtained. COMPARISON: Chest radiograph dated 04/10/2023 FINDINGS: The lungs remain clear with no focal airspace opacities, pulmonary edema, pleural effusion or pneumot horax. The cardiomediastinal silhouette is normal. Visualized bones and soft tissues are unremarkable . IMPRESSION: 1. No acute cardiopulmonary disease. Reviewed, dictated and finalized at location A.
--- NOTE | 2023-06-20 14:21 | ECG_ITS ---
Measurements Intervals [place] Rate: 71 P: 90 [place]: 163 QRS: -77 QRSD: 94 T: 0 QT: 222 QTc: 241 Interpretive Statements SINUS RHYTHM LOW QRS VOLTAGE- DIFFUSE LEADS RIGHT BUNDLE BRANCH BLOCK LEFT ANTERIOR FASCICULAR BLOCK BASELINE ARTIFACT- AVR, AVL, AVF, V1-V6 ABNORMAL ECG COMPARED TO ECG 04/10/2023 17:46:19 SINUS RHYTHM NOW PRESENT LEFT ANTERIOR FASCICULAR BLOCK NOW PRESENT Electronically Signed On 06-20-2023 16:11:28 CDT by James Cox D.O.
--- NOTE | 2023-06-20 14:22 | ED.WEAKNESS ---
HPI - Weakness General Chief complaint: Weakness Stated complaint: weakness Time Seen by Provider: 06/20/23 14:17 History of Present Illness HPI Narrative: Patient is a 58-year-old male presenting with generalized weakness. Patient reports a long history of ethanol use disorder. States that he last had a drink this morning. States that he thinks that it has finally caught up to him. States that he feels generally weak. Has had decreased appetite but no nausea or vomiting. Denies any pain at this time. Related Data Home Medications Medication Instructions Recorded Confirmed levothyroxine 25 mcg tablet 25 mcg PO DAILY 07/27/21 06/20/23 megestrol 400 mg/10 mL (10 mL) 400 mg PO BID 08/26/21 06/20/23 oral suspension pantoprazole 40 mg granules 40 mg PO Q12H 08/26/21 06/20/23 delayed-release for susp in packet (Protonix) docusate sodium 100 mg capsule 100 mg PO Q12H 11/09/22 06/20/23 furosemide 40 mg tablet 40 mg PO DAILY 04/10/23 06/20/23 gabapentin 800 mg tablet 800 mg PO TID 04/10/23 06/20/23 ibuprofen 800 mg tablet 800 mg PO Q8-12H PRN Pain 04/10/23 06/20/23 lisinopril 20 mg tablet 20 mg PO DAILY 04/10/23 06/20/23 albuterol sulfate 2.5 mg/0.5 mL 2.5 mg inhalation Q6H PRN 06/20/23 06/20/23 solution for nebulization Shortness Of Breath duloxetine 60 mg capsule,delayed 60 mg PO DAILY 06/20/23 06/20/23 release tramadol 50 mg tablet 50 mg PO Q6H PRN Pain 06/20/23 06/20/23 Allergies Allergy/AdvReac Type Severity Reaction Status Date / Time amoxicillin Allergy Rash Verified 06/24/23 12:27 Review of Systems Review of Systems: All systems reviewed & are unremarkable except as noted in HPI and below PMFSH Past Medical History Medical History (Updated 06/26/23 @ 09:43 by Dharmesh Mittal MD) Acute GI bleeding Acute ischemic stroke Adult failure to thrive Alcohol dependence Cerebrovascular accident With left-sided residual weakness. Chronic anemia Chronic hyponatremia Congestive heart failure Echocardiogram on 07/17/2021 showed normal LV chamber dimension and function with an estimated EF of 65 to 70% and grade 1 diastolic dysfunction with mild pulmonary hypertension estimated pulmonary arterial systolic pressure of 37 mmHg. Conjunctivitis COVID (08/2021) DVT prophylaxis Gastroesophageal reflux disease Generalized weakness HCAP (healthcare-associated pneumonia) Hypertension Hypokalemia Hypokalemia Hypothyroidism Orthostatic hypotension Pneumonia Protein calorie malnutrition Rectal bleeding Sepsis Stroke Tobacco dependence Unwitnessed fall Urinary tract infection UTI (urinary tract infection) Surgical History Surgical History History of excision of testicular mass With benign histology. Family History Family History Father Chronic obstructive pulmonary disease Congestive heart failure Hypertension Mother Abdominal aortic aneurysm rupture Daughter Type 1 diabetes mellitus Social History Social History (Updated 06/21/23 @ 00:37 by Hannah Rogers NP) Social History: The patient lives with his brother The patient has 3 children. And is disabled. The patient states that he likes to drink whiskey and does not like to drink beer. The patient is single and unemployed Surrogate decision maker: Bere Rushjewelshoda, sister. Code status: Full code. Smoking packs per day: 1 Smoking cigarettes per day: 20.0 Years smoked: 21 Smoking pack-years: 21.00 Smoking status: Current every day smoker Tobacco type: cigarettes Additional smoking assessment comments: patient on nicotine patch Alcohol intake: current Drinks per week: 21 Alcohol use details: 3 to 4 beers per week. Substance use: former Substance use type: marijuana Other substance usage details: 200ml whiskey/day Lack of Transportation: No Lack of Food: Never True Current
[2023-06-20 14:37] LABS: Basophils Absolute Auto 0.1 K/mm3 (0.0-0.1); Basophils Percent Auto 0.8 % (0.2-1.2); Eosinophils Percent Auto 0.5 % (0-4.4); Hematocrit 28.2 % (42.0-52.0); Immature Granulocyte Absolute 0.08 K/mm3 (0.00-0.031); Lymphocytes Absolute Auto 2.33 K/mm3 (0.9-3.2); Lymphocytes Percent Auto 29.7 % (18.3-44.2); Mean Corpuscular HGB Conc 35.5 g/dl (32-36); Mean Corpuscular Volume 95.9 fl (80-100); Mean Platelet Volume 9.6 fl (7.4-10.4); Monocytes Absolute Auto 1.4 K/mm3 (0.1-0.6); Monocytes Percent Auto 17.8 % (2.6-8.5); Neutrophils Absolute Auto 3.9 K/mm3 (1.3-6.7); Neutrophils Percent Auto 50.2 % (45.5-73.1); Nucleated Red Blood Cells Absolute Auto 0.1 K/mm3 (0.0-0.012); Nucleated Red Blood Cells Perc 0.8 % (0.0-0.2); Platelet Count Result 381 k/mm3 (150-375); Red Blood Count 2.94 M/mm3 (4.6-6.20); Red Cell Distribution Width 16.1 % (11.5-14.5); White Blood Count 7.9 K/mm3 (4.5-10.0)
[2023-06-20 14:46] LABS: Prothrombin Time 13.3 Seconds (11.1-14.7)
[2023-06-20 14:47] LABS: Partial Thromboplastin Time 34.7 SECONDS (22.3-36.8)
[2023-06-20] MEDS: LACTATED RINGERS 1,000 ML 999 ML IV CONT ×4 (14:59→15:41)
[2023-06-20 15:00] LABS: Alanine Aminotransferase 24 U/L (6-50); Albumin Level 2.9 g/dL (3.5-5.1); Alkaline Phosphatase 109 U/L (38-126); Anion Gap 20 mmol/L (8-16); Aspartate Amino Transferase 66 U/L (17-59); Bilirubin,Total 0.5 mg/dL (0.2-1.3); Blood Urea Nitrogen 54 mg/dL (9-20); Calcium 7.3 mg/dL (8.4-10.2); Carbon Dioxide 19 mmol/L (22-30); Chloride 85 mmol/L (98-107); Creatine Kinase 393 U/L (55-170); Estimated CRCL calculation 11 ml/min; Estimated Glomerular Filt Rate 11; Glucose 70 mg/dL (65-110); Lactic Acid Reflex 8.8 mmol/L (0.7-2.0); Lipase 152 U/L (23-300); Magnesium 1.6 mg/dL (1.6-2.3); Potassium < 2.0 mmol/L (3.4-5.0); Sodium 124 mmol/L (137-145)
[2023-06-20 15:02] LABS: NT Pro B Type Natriuretic Pept 9040 pg/mL (19.9-100)
[2023-06-20 15:06] LABS: Troponin I 0.013 ng/mL (0.000-0.034)
[2023-06-20 15:26] LABS: Ethanol 86 mg/dL (<10)
[2023-06-20] MEDS: POTASSIUM CHLORIDE 20 MEQ PACKET (FOR LIQUID) 40 MEQ PO (15:43)
[2023-06-20] MEDS: POTASSIUM CHLORIDE INJ 40 MEQ in SODIUM CHLORIDE 0.9% IV 500 ML 130 MEQ IVPB (16:00)
--- NOTE | 2023-06-20 17:21 | PC.NURSE ---
PT INCONTINENT OF LARGE AMOUNT OF MUCOUSY STOOL. PT WITH EXCORIATION OF BUTTOCKS AND SCROTUM. DR KIDD AWARE. BARRIER CREAM APPLIED PRIOR TO NEW DIAPER BEING APPLIED
[2023-06-20 17:33] LABS: Reflex Lactic Acid Yes or No Add Lactic
[2023-06-20 18:10] LABS: Lactic Acid 5.9 mmol/L (0.7-2.0)
[2023-06-20 18:18] LABS: Troponin I < 0.012 ng/mL (0.000-0.034)
[2023-06-20] MEDS: FAMOTIDINE 20 MG TABLET PO (18:20)
--- NOTE | 2023-06-20 19:05 | PC.NURSE ---
This RN assumed care of pt. This RN took report from Cat RN
[2023-06-20 19:14] LABS: Appearance Urine Turbid (Clear); Bacteria Urine 4+ /hpf; Bilirubin Urine Negative (Negative); Blood Urine 2+ (Negative); Color Urine Yellow (Yellow); Glucose Urine UA Negative (Negative); Ketones Urine Trace mg/dL (Negative); Leukocyte Esterase Ur 3+ LEU/UL (Negative); Mucus Urine Present /lpf; Need Manual Microscopic Reviewed; Nitrate Urine Negative (Negative); Non Pathogenic Casts >20; Protein Urine 2+ mg/dL (Negative); RBC Urine 0-2 /hpf (0-2); Specific Grav Ur 1.018 (1.001-1.035); Squamous Epithelial Cell Urine None seen /hpf (Few); WBC Urine >100 /hpf
[2023-06-20 19:15] LABS: Add Urine Microscopic? YES
--- NOTE | 2023-06-20 21:07 | PM.IMHP ---
H&P: HPI History of Present Illness Date/Time: 06/20/23 21:07 Chief Complaint: Weakness Narrative: This is a 58-year-old male patient who has a history of alcoholism. The patient presented to the emergency room with complaints of generalized weakness. The patient stated the last time he drank alcohol was this morning. The patient feels weak and has no appetite. He denies any nausea vomiting. No fever chills. H&H is 10.0 and 20.2. Sodium is 124 potassium less than 2.0 BUN 54 creatinine 5.6. Lactic 8.8 and 5.9. His blood sugar 100. Troponin negative x3. Total creatinine kinase 393. BNP 9040. The patient was positive for UTI. The patient was given lactated Ringer's, IV potassium as well as p.o. potassium normal saline Pepcid and Tylenol. The patient is being admitted to observation status on the date of service of 06/20/2023 Review of Systems Review of Systems: All systems reviewed & are unremarkable except as noted in HPI and below Constitutional: Constitutional: Reports as per HPI and Reports no additional constitutional complaints Eyes: Eyes: Reports as per HPI and Reports no additional eye complaints ENT: Reports system reviewed and no additional complaints, except as documented and Reports Normal hearing present Cardiovascular: Cardiovascular: Reports no additional cardiovascular complaints Respiratory: Respiratory: Reports no additional respiratory complaints and Reports no additional respiratory complaints Gastrointestinal: Gastrointestinal: Reports as per HPI and Reports no additional gastrointestinal complaints Musculoskeletal: Musculoskeletal: Reports no additional musculoskeletal complaints Integumentary/Breasts: Skin/Breast: Reports system reviewed and no additional complaints, except as docu and Reports as per HPI Neurologic: Reports system reviewed and no additional complaints, except as documented, Reports as per HPI and Reports Normal hearing present Psychiatric: Psychiatric: Reports no additional psychiatric complaints and Reports as per HPI Endocrine: Endocrine: Reports no additional endocrine complaints Hematologic/Lymphatic: Hematologic/Lymphatic: Reports no additional hematologic/lymphatic complaints Allergic/Immunologic: Allergic/Immunologic: Reports no additional allergic/immunologic complaints COUNT INCLUDES THE [facility] Past Medical History Medical History (Updated 06/21/23 @ 00:44 by Hannah Rogers NP) Acute GI bleeding Acute ischemic stroke Adult failure to thrive Alcohol dependence Cerebrovascular accident With left-sided residual weakness. Chronic anemia Chronic hyponatremia Congestive heart failure Echocardiogram on 07/17/2021 showed normal LV chamber dimension and function with an estimated EF of 65 to 70% and grade 1 diastolic dysfunction with mild pulmonary hypertension estimated pulmonary arterial systolic pressure of 37 mmHg. Conjunctivitis COVID (08/2021) DVT prophylaxis Gastroesophageal reflux disease Generalized weakness HCAP (healthcare-associated pneumonia) Hypertension Hypokalemia Hypothyroidism Orthostatic hypotension Pneumonia Protein calorie malnutrition Rectal bleeding Sepsis Stroke Tobacco dependence Unwitnessed fall Urinary tract infection UTI (urinary tract infection) Surgical History Surgical History History of excision of testicular mass With benign histology. Family History Family History Father Chronic obstructive pulmonary disease Congestive heart failure Hypertension Mother Abdominal aortic aneurysm rupture Daughter Type 1 diabetes mellitus Social History Social History (Updated 06/21/23 @ 00:37 by Hannah Rogers NP) Social History: The patient lives with his brother The patient has 3 children. And is disabled. The patient states that he likes to drink whiskey and does not like to drink beer. The patient is sin
[2023-06-20 21:30] LABS: Troponin I < 0.012 ng/mL (0.000-0.034)
--- NOTE | 2023-06-20 21:41 | ADMGEN ---
This patient, Simon Barraza, was admitted to IMU Room 206-02. Patient/family oriented to hospital policies and general routines including ID bracelet, bed and alarms, visiting hours, pain management, procedures, bathroom and other care routines, personal items, smoking policy, room service/diet, and visiting hours. Information on how to activate the Rapid Response Team has been discussed. Patient/Family are encouraged to report perceived risks to care and to ask questions if they do not understand what they are told or what they should do.
[2023-06-20 21:56] LABS: Glucose Point of Care 100 mg/dl (65-105)
[2023-06-20] MEDS: ACETAMINOPHEN 500 MG TABLET 1000 MG PO (22:57)
[2023-06-20] MEDS: POLYMYXIN/TRIMETHOPRIM OPHTH 10 ML DROPS 1 DROP EACH EYE (22:58)
[2023-06-21] VITALS (18 sets, daily range): BP systolic 72–110; BP diastolic 50–78; PULSE 69–109; RESP 17–18; TEMP 35.8–36.6; O2SAT 91–100; BMI 19.4
[2023-06-21 01:05] LABS: Basophils Absolute Auto 0.1 K/mm3 (0.0-0.1); Basophils Percent Auto 0.8 % (0.2-1.2); Eosinophils Absolute Auto 0.1 K/mm3 (0-0.3); Eosinophils Percent Auto 1.2 % (0-4.4); Hematocrit 24.6 % (42.0-52.0); Hemoglobin 8.8 g/dL (14.0-18.0); Immature Granulocyte Absolute 0.07 K/mm3 (0.00-0.031); Immature Granulocyte Percent A 0.8 % (0-0.5); Lymphocytes Absolute Auto 2.03 K/mm3 (0.9-3.2); Lymphocytes Percent Auto 22.8 % (18.3-44.2); Mean Corpuscular HGB Conc 35.8 g/dl (32-36); Mean Corpuscular Hemoglobin 34.4 pg (26-34); Mean Corpuscular Volume 96.1 fl (80-100); Mean Platelet Volume 9.1 fl (7.4-10.4); Monocytes Absolute Auto 1.5 K/mm3 (0.1-0.6); Monocytes Percent Auto 16.8 % (2.6-8.5); Neutrophils Absolute Auto 5.1 K/mm3 (1.3-6.7); Neutrophils Percent Auto 57.6 % (45.5-73.1); Platelet Count Result 303 k/mm3 (150-375); Red Blood Count 2.56 M/mm3 (4.6-6.20); Red Cell Distribution Width 15.9 % (11.5-14.5); White Blood Count 8.9 K/mm3 (4.5-10.0)
[2023-06-21] MEDS: SODIUM CHLORIDE 0.9% IV 1,000 ML 100 ML IV CONT ×3 (01:32→21:00)
[2023-06-21 01:34] LABS: Alanine Aminotransferase 22 U/L (6-50); Albumin Level 2.1 g/dL (3.5-5.1); Alkaline Phosphatase 102 U/L (38-126); Anion Gap 6 mmol/L (8-16); Aspartate Amino Transferase 59 U/L (17-59); Bilirubin,Total 0.3 mg/dL (0.2-1.3); Blood Urea Nitrogen 44 mg/dL (9-20); CRP 17.4 mg/dL (<1.0); Calcium 6.5 mg/dL (8.4-10.2); Carbon Dioxide 26 mmol/L (22-30); Chloride 96 mmol/L (98-107); Creatine Kinase 217 U/L (55-170); Estimated CRCL calculation 25 ml/min; Estimated Glomerular Filt Rate 24; Glucose 92 mg/dL (65-110); Magnesium 1.6 mg/dL (1.6-2.3); Phosphorus 3.7 mg/dL (2.5-4.5); Potassium < 2.0 mmol/L (3.4-5.0); Sodium 128 mmol/L (137-145)
[2023-06-21 01:35] LABS: Erythrocyte Sedimentation Rate 66 mm/hr (0-20)
[2023-06-21 01:56] LABS: Complement C3 51 mg/dL (88-165)
[2023-06-21] MEDS: POTASSIUM CHLORIDE INJ 40 MEQ in SODIUM CHLORIDE 0.9% IV 500 ML 130 MEQ IVPB (02:14)
[2023-06-21] MEDS: POTASSIUM CHLORIDE 20 MEQ ER TABLET 40 MEQ PO (02:14)
[2023-06-21] MEDS: MAGNESIUM SULF 2 GM/WATER 50ML 2 GM/50 ML BAG IVPB (02:14)
[2023-06-21 02:25] LABS: Creatinine Urine 155.1 mg/dL; Total Protein Urine Random 28 mg/dL; Ur Ttl Prot Creatinine Ratio 0.18 mg/mg (0-0.20)
[2023-06-21 02:29] LABS: Potassium Urine Random 14.5 meq/L; Sodium Urine Random 22 meq/L
[2023-06-21 02:39] LABS: Eosinophil Urine None Seen % (None Seen); Urine Eos QC 2nd Tech Confirmed
[2023-06-21 02:56] LABS: HIV 1/2 Ab P24 Ag Result Negative (Negative)
[2023-06-21] MEDS: chlordiazePOXIDE (*CRX) 25 MG CAPSULE 50 MG PO ×2 (05:47→12:22)
[2023-06-21] MEDS: LEVOTHYROXINE SODIUM 25 MCG TABLET PO (05:47)
[2023-06-21] MEDS: POLYMYXIN/TRIMETHOPRIM OPHTH 10 ML DROPS 1 DROP EACH EYE ×5 (05:48→21:00)
[2023-06-21] MEDS: KCL 20 MEQ/SW 100 ML 100 ML 50 MEQ IVPB (06:22)
[2023-06-21] MEDS: CYANOCOBALAMIN 1,000 MCG TABLET 1000 MCG PO (08:37)
[2023-06-21] MEDS: DULoxetine HCL 60 MG CAPSULE.DR PO (08:38)
[2023-06-21] MEDS: CLOPIDOGREL BISULFATE 75 MG TABLET PO (08:38)
[2023-06-21] MEDS: THIAMINE HCL 100 MG TABLET PO (08:38)
[2023-06-21] MEDS: FOLIC ACID 1 MG TABLET PO (08:38)
[2023-06-21] MEDS: FERROUS SULFATE 325 MG TABLET DR BY MOUTH (08:38)
[2023-06-21] MEDS: GABAPENTIN 300 MG CAPSULE 600 MG PO (08:38)
[2023-06-21 08:45] LABS: Basophils Absolute Auto 0.1 K/mm3 (0.0-0.1); Basophils Percent Auto 1.1 % (0.2-1.2); Eosinophils Absolute Auto 0.1 K/mm3 (0-0.3); Eosinophils Percent Auto 1.4 % (0-4.4); Hematocrit 27.6 % (42.0-52.0); Hemoglobin 9.8 g/dL (14.0-18.0); Immature Granulocyte Absolute 0.05 K/mm3 (0.00-0.031); Immature Granulocyte Percent A 0.7 % (0-0.5); Lymphocytes Absolute Auto 1.79 K/mm3 (0.9-3.2); Lymphocytes Percent Auto 24.6 % (18.3-44.2); Mean Corpuscular HGB Conc 35.5 g/dl (32-36); Mean Corpuscular Hemoglobin 34.4 pg (26-34); Mean Corpuscular Volume 96.8 fl (80-100); Mean Platelet Volume 8.7 fl (7.4-10.4); Monocytes Percent Auto 13.7 % (2.6-8.5); Neutrophils Absolute Auto 4.3 K/mm3 (1.3-6.7); Neutrophils Percent Auto 58.5 % (45.5-73.1); Nucleated Red Blood Cells Perc 0.3 % (0.0-0.2); Platelet Count Result 325 k/mm3 (150-375); Red Blood Count 2.85 M/mm3 (4.6-6.20); Red Cell Distribution Width 16.1 % (11.5-14.5); White Blood Count 7.3 K/mm3 (4.5-10.0)
[2023-06-21 08:55] LABS: Lactic Acid Reflex 0.8 mmol/L (0.7-2.0)
[2023-06-21 08:57] LABS: Alanine Aminotransferase 36 U/L (6-50); Albumin Level 2.4 g/dL (3.5-5.1); Alkaline Phosphatase 132 U/L (38-126); Anion Gap 4 mmol/L (8-16); Aspartate Amino Transferase 157 U/L (17-59); Bilirubin,Total 0.4 mg/dL (0.2-1.3); Blood Urea Nitrogen 41 mg/dL (9-20); Carbon Dioxide 27 mmol/L (22-30); Chloride 101 mmol/L (98-107); Estimated CRCL calculation 38 ml/min; Estimated Glomerular Filt Rate 39; Glucose 89 mg/dL (65-110); Magnesium 2.4 mg/dL (1.6-2.3); Sodium 132 mmol/L (137-145)
[2023-06-21 09:06] LABS: Glucose Point of Care 71 mg/dl (65-105)
[2023-06-21 09:57] LABS: Thyroid Stimulating Hormone Reflex 0.541 uIU/mL (0.465-4.68)
[2023-06-21] MEDS: SODIUM CHLORIDE 1 GM TABLET PO ×2 (10:25→17:58)
[2023-06-21 10:26] LABS: Hepatitis B Surface Antigen Negative (Negative)
[2023-06-21] MEDS: MEGESTROL ACETATE (*CHEMO) ORAL SUSP 40 MG/ML SYR 400 MG PO ×2 (10:26→17:57)
[2023-06-21] MEDS: POTASSIUM CHLORIDE 20 MEQ ER TABLET PO (10:26)
[2023-06-21 10:31] LABS: Hepatitis B Core IgM Result Negative (Negative)
[2023-06-21 10:46] LABS: Hepatitis B Surface Anti Res Positive
--- NOTE | 2023-06-21 11:42 | PM.IMPN ---
Progress Note: A&P Assessment and Plan (1) Alcohol use disorder: Code(s): F10.90 - Alcohol use, unspecified, uncomplicated Status: Acute Assessment and Plan: Continue with CIWA. The patient was given a banana bag. Replace magnesium and potassium as needed. His last drink of alcohol was this morning. Continue with folic acid. Continue with thiamin. Continue with p.r.n. Ativan and Librium continue with gabapentin (2) LUIS (acute kidney injury): Code(s): N17.9 - Acute kidney failure, unspecified Status: Acute Assessment and Plan: [facility] [place] renal failure protocol was initiated. Nephrology has been consulted. Continue with IV fluids. The patient has had a poor appetite. Avoid any nephrotoxic medication. Hold Lasix for now. Hold ibuprofen. Hold lisinopril. (3) Debility, unspecified: Code(s): R53.81 - Other malaise Status: Acute Assessment and Plan: The patient has a poor oral intake. His BMI is 19. May consider nutritional evaluation. (4) Hyponatremia: Code(s): E87.1 - Hypo-osmolality and hyponatremia Status: Chronic Assessment and Plan: Most likely secondary to the alcoholism. The patient had been on a sodium chloride tablet. (5) UTI (urinary tract infection): Code(s): N39.0 - Urinary tract infection, site not specified Status: Acute Assessment and Plan: The patient was started on Rocephin. Blood and urine cultures have been ordered. (6) Hypothyroidism: Code(s): E03.9 - Hypothyroidism, unspecified Status: Acute Assessment and Plan: Continue with levothyroxine and check thyroid level. (7) Chronic anemia: Code(s): D64.9 - Anemia, unspecified Status: Acute Assessment and Plan: Patient's H&H is higher than normal which could be related to dehydration. (8) Congestive heart failure: Code(s): I50.9 - Heart failure, unspecified Status: Acute Assessment and Plan: Lasix and lisinopril on hold at this time. (9) Conjunctivitis: Code(s): H10.9 - Unspecified conjunctivitis Status: Acute Assessment and Plan: Continue with antibiotic eyedrops. Subjective Date/time seen: 06/21/23 11:42 Interval history: No complaints Exam Const: General: cooperative, healthy appearing, comfortable, no acute distress, alert, awake, Physically active, ill appearing, tired appearing, average body habitus, well nourished and thin Nutritional Appearance: average body habitus, well nourished and thin Orientation/consciousness: oriented to person, oriented to place, oriented to time and patient oriented x3 Limitations: no limitations HENMT: Head: normal to inspection, No palpable skull fracture present, normocephalic and atraumatic Ears: hearing grossly normal bilaterally and external ears normal Face/Nose/Sinus: Normal external nose present and Normal nares present Eyes: General: appearance normal, both eyes and all related structures Alignment and Position: alignment normal Periorbital: periorbital findings normal Eyelids: eyelid abnormality (Crusted bilateral eyelids.) Sclera: sclerae normal Pupils: Equal, round and reactive pupils present EOM: EOMs intact bilaterally Neck: Neck: normal visual inspection, full ROM, no lymphadenopathy, trachea midline and supple Chest: Chest palpation & inspection: normal inspection of the chest Resp: Effort & Inspection: normal respiratory effort Auscultation: clear to auscultation bilaterally Cardio: Palpation: normal PMI Rate: regular rate Rhythm: regular rhythm Heart sounds: S1 normal heart sound present and S2 normal heart sound present Peripheral pulses: Peripheral pulses 2+ throughout GI: Inspection: normal to inspection Auscultation: normal bowel sounds Rectal Exam: deferred Back/Spine/Pelvis: Cervical Spine: cervical ROM normal Skin: General skin exam: normal color Lesions: no lesions Rashes: no rashes Trauma
[2023-06-21 13:03] LABS: Hepatitis C Virus Antibody Negative (Negative)
[2023-06-21] MEDS: SODIUM CHLORIDE 0.9% IV 1,000 ML 999 ML IV CONT ×2 (13:44→16:37)
[2023-06-21 14:49] LABS: Glucose Point of Care 136 mg/dl (65-105)
[2023-06-21 16:17] LABS: Toxigenic C. Diff POSITIVE (NEGATIVE)
--- NOTE | 2023-06-21 17:32 | PC.NURSE ---
This patient, Simon Barraza, was transferred to ICU 4 on 06/21/23 at 1725. Personal belongings sent with patient. Report given to Eduard LINDSAY. Appropriate documentation sent with patient.
--- NOTE | 2023-06-21 17:44 | PC.NURSE ---
This patient, Simon Barraza, was received from [facility] on 06/21/23 at 1730. Patient/family oriented to unit policies and routines
[2023-06-21 17:57] LABS: Glucose Point of Care 118 mg/dl (65-105)
[2023-06-21] MEDS: VANCOMYCIN ORAL 125 MG/2.5 ML SYRUP PO (17:58)
[2023-06-21] MEDS: chlordiazePOXIDE (*CRX) 25 MG CAPSULE PO (21:00)
[2023-06-22] VITALS (14 sets, daily range): BP systolic 92–123; BP diastolic 74–95; PULSE 85–117; RESP 12–19; TEMP 36.5–36.7; O2SAT 97–99
[2023-06-22] MEDS: VANCOMYCIN ORAL 125 MG/2.5 ML SYRUP PO ×4 (00:24→17:39)
[2023-06-22] MEDS: LORazepam INJ (*CRX) 2 MG/ML VIAL IV PUSH (02:46)
[2023-06-22 04:38] LABS: Hematocrit 27.9 % (42.0-52.0); Hemoglobin 9.5 g/dL (14.0-18.0); Mean Corpuscular HGB Conc 34.1 g/dl (32-36); Mean Corpuscular Hemoglobin 34.2 pg (26-34); Mean Corpuscular Volume 100.4 fl (80-100); Mean Platelet Volume 8.7 fl (7.4-10.4); Platelet Count Result 340 k/mm3 (150-375); Red Blood Count 2.78 M/mm3 (4.6-6.20); Red Cell Distribution Width 16.6 % (11.5-14.5); White Blood Count 8.5 K/mm3 (4.5-10.0)
[2023-06-22 05:13] LABS: Alanine Aminotransferase 30 U/L (6-50); Albumin Level 2.4 g/dL (3.5-5.1); Alkaline Phosphatase 138 U/L (38-126); Anion Gap 5 mmol/L (8-16); Aspartate Amino Transferase 72 U/L (17-59); Bilirubin,Total 0.2 mg/dL (0.2-1.3); Blood Urea Nitrogen 30 mg/dL (9-20); Calcium 7.2 mg/dL (8.4-10.2); Carbon Dioxide 21 mmol/L (22-30); Chloride 106 mmol/L (98-107); Estimated CRCL calculation 92 ml/min; Estimated Glomerular Filt Rate > 60; Glucose 96 mg/dL (65-110); Sodium 132 mmol/L (137-145)
[2023-06-22] MEDS: LEVOTHYROXINE SODIUM 25 MCG TABLET PO (05:51)
[2023-06-22] MEDS: POLYMYXIN/TRIMETHOPRIM OPHTH 10 ML DROPS 1 DROP EACH EYE ×5 (05:52→22:00)
[2023-06-22] MEDS: chlordiazePOXIDE (*CRX) 25 MG CAPSULE PO ×3 (05:52→22:00)
[2023-06-22] MEDS: SODIUM CHLORIDE 0.9% IV 1,000 ML 100 ML IV CONT ×2 (07:00→16:39)
[2023-06-22] MEDS: FERROUS SULFATE 325 MG TABLET DR BY MOUTH (09:00)
[2023-06-22] MEDS: POTASSIUM CHLORIDE 20 MEQ ER TABLET 40 MEQ PO (09:30)
[2023-06-22] MEDS: THIAMINE HCL 100 MG TABLET PO (09:58)
[2023-06-22] MEDS: SODIUM CHLORIDE 1 GM TABLET PO ×2 (09:58→16:39)
[2023-06-22] MEDS: CYANOCOBALAMIN 1,000 MCG TABLET 1000 MCG PO (09:59)
[2023-06-22] MEDS: FOLIC ACID 1 MG TABLET PO (09:59)
[2023-06-22] MEDS: POTASSIUM CHLORIDE 20 MEQ PACKET (FOR LIQUID) PO (09:59)
[2023-06-22] MEDS: CLOPIDOGREL BISULFATE 75 MG TABLET PO (09:59)
[2023-06-22] MEDS: GABAPENTIN 300 MG CAPSULE 600 MG PO (09:59)
[2023-06-22] MEDS: DULoxetine HCL 60 MG CAPSULE.DR PO (09:59)
[2023-06-22] MEDS: MEGESTROL ACETATE (*CHEMO) ORAL SUSP 40 MG/ML SYR 400 MG PO ×2 (10:00→16:39)
--- NOTE | 2023-06-22 11:13 | PM.IMPN ---
Progress Note: A&P Assessment and Plan (1) Alcohol use disorder: Code(s): F10.90 - Alcohol use, unspecified, uncomplicated Status: Acute Assessment and Plan: Continue with CIWA. The patient was given a banana bag. Replace magnesium and potassium as needed. His last drink of alcohol was this morning. Continue with folic acid. Continue with thiamin. Continue with p.r.n. Ativan and Librium continue with gabapentin (2) LUIS (acute kidney injury): Code(s): N17.9 - Acute kidney failure, unspecified Status: Acute Assessment and Plan: Kidney function has improved. Monitor and replace electrolytes. (3) Debility, unspecified: Code(s): R53.81 - Other malaise Status: Acute Assessment and Plan: The patient has a poor oral intake. His BMI is 19. May consider nutritional evaluation. (4) Hyponatremia: Code(s): E87.1 - Hypo-osmolality and hyponatremia Status: Chronic Assessment and Plan: Monitor (5) UTI (urinary tract infection): Code(s): N39.0 - Urinary tract infection, site not specified Status: Acute Assessment and Plan: The patient was started on Rocephin. Blood and urine cultures have been ordered. (6) Hypothyroidism: Code(s): E03.9 - Hypothyroidism, unspecified Status: Acute Assessment and Plan: Continue with levothyroxine and check thyroid level. (7) Chronic anemia: Code(s): D64.9 - Anemia, unspecified Status: Acute Assessment and Plan: Patient's H&H is higher than normal which could be related to dehydration. (8) Congestive heart failure: Code(s): I50.9 - Heart failure, unspecified Status: Acute Assessment and Plan: Lasix and lisinopril on hold at this time. (9) Conjunctivitis: Code(s): H10.9 - Unspecified conjunctivitis Status: Acute Assessment and Plan: Continue with antibiotic eyedrops. (10) C. difficile colitis: Code(s): A04.72 - Enterocolitis due to Clostridium difficile, not specified as recurrent Status: Acute Assessment and Plan: Continue oral vancomycin. Subjective Date/time seen: 06/22/23 11:13 Interval history: Fecal management system has been placed. Having numerous loose stool. Continue on CIWA protocol Exam Const: General: cooperative, healthy appearing, comfortable, no acute distress, alert, awake, Physically active, ill appearing, tired appearing, average body habitus, well nourished and thin Nutritional Appearance: average body habitus, well nourished and thin Orientation/consciousness: oriented to person, oriented to place, oriented to time and patient oriented x3 Limitations: no limitations HENMT: Head: normal to inspection, No palpable skull fracture present, normocephalic and atraumatic Ears: hearing grossly normal bilaterally and external ears normal Face/Nose/Sinus: Normal external nose present and Normal nares present Eyes: General: appearance normal, both eyes and all related structures Alignment and Position: alignment normal Periorbital: periorbital findings normal Eyelids: eyelid abnormality (Crusted bilateral eyelids.) Sclera: sclerae normal Pupils: Equal, round and reactive pupils present EOM: EOMs intact bilaterally Neck: Neck: normal visual inspection, full ROM, no lymphadenopathy, trachea midline and supple Chest: Chest palpation & inspection: normal inspection of the chest Resp: Effort & Inspection: normal respiratory effort Auscultation: clear to auscultation bilaterally Cardio: Palpation: normal PMI Rate: regular rate Rhythm: regular rhythm Heart sounds: S1 normal heart sound present and S2 normal heart sound present Peripheral pulses: Peripheral pulses 2+ throughout GI: Inspection: normal to inspection Auscultation: normal bowel sounds Rectal Exam: deferred Back/Spine/Pelvis: Cervical Spine: cervical ROM normal Skin: General skin exam: normal color Lesions: no l
--- NOTE | 2023-06-22 11:46 | PC.NURSE ---
At 1140, patient noted to be off monitors. This RN went to assess patient. Patient is still confused, pulling monitors and gown off of self. When asked where patient was today he keeps replying with [place] . Patient has one leg out of bed and keeps saying he has to get up. Bed alarms are currently on and in place. All monitors placed back on patient. RN to continue to monitor.
[2023-06-22 13:10] LABS: Glucose Point of Care 90 mg/dl (65-105)
--- NOTE | 2023-06-22 16:25 | PC.NURSE ---
Bladder scanned patient at 1600 for urinary retention and no urine output since 0800 this AM. patient had total of 400 mls residing in bladder per bladder scanner. MD updated and made aware. Orders obtained to place urinary Ca catheter. RN to continue to monitor patient.
[2023-06-23] VITALS (9 sets, daily range): BP systolic 94–142; BP diastolic 69–99; PULSE 104–127; RESP 18–23; TEMP 36.5–37.3; O2SAT 97–100
[2023-06-23] MEDS: VANCOMYCIN ORAL 125 MG/2.5 ML SYRUP PO ×4 (01:44→17:44)
[2023-06-23] MEDS: SODIUM CHLORIDE 0.9% IV 1,000 ML 100 ML IV CONT ×2 (01:54→12:34)
[2023-06-23] MEDS: POLYMYXIN/TRIMETHOPRIM OPHTH 10 ML DROPS 1 DROP EACH EYE ×5 (06:02→22:36)
[2023-06-23] MEDS: chlordiazePOXIDE (*CRX) 25 MG CAPSULE PO ×3 (06:19→22:33)
[2023-06-23] MEDS: LEVOTHYROXINE SODIUM 25 MCG TABLET PO (06:19)
[2023-06-23 06:23] LABS: Glucose Point of Care 42 mg/dl (65-105)
[2023-06-23] MEDS: THIAMINE HCL 100 MG TABLET PO (08:39)
[2023-06-23] MEDS: FERROUS SULFATE 325 MG TABLET DR BY MOUTH (08:39)
[2023-06-23] MEDS: CYANOCOBALAMIN 1,000 MCG TABLET 1000 MCG PO (08:39)
[2023-06-23] MEDS: FOLIC ACID 1 MG TABLET PO (08:39)
[2023-06-23] MEDS: CLOPIDOGREL BISULFATE 75 MG TABLET PO (08:39)
[2023-06-23] MEDS: GABAPENTIN 300 MG CAPSULE 600 MG PO (08:39)
[2023-06-23] MEDS: MEGESTROL ACETATE (*CHEMO) ORAL SUSP 40 MG/ML SYR 400 MG PO ×2 (08:39→17:44)
[2023-06-23] MEDS: DULoxetine HCL 60 MG CAPSULE.DR PO (08:39)
[2023-06-23] MEDS: SODIUM CHLORIDE 1 GM TABLET PO ×2 (08:39→17:44)
[2023-06-23 10:34] LABS: Anion Gap 4 mmol/L (8-16); Blood Urea Nitrogen 20 mg/dL (9-20); Calcium 7.9 mg/dL (8.4-10.2); Carbon Dioxide 18 mmol/L (22-30); Chloride 113 mmol/L (98-107); Estimated CRCL calculation 136 ml/min; Estimated Glomerular Filt Rate > 60; Glucose 140 mg/dL (65-110); Potassium 3.5 mmol/L (3.4-5.0); Sodium 135 mmol/L (137-145)
[2023-06-23 10:45] LABS: Glucose Point of Care 131 mg/dl (65-105)
--- NOTE | 2023-06-23 11:38 | PM.IMPN ---
Progress Note: A&P Assessment and Plan (1) Alcohol use disorder: Code(s): F10.90 - Alcohol use, unspecified, uncomplicated Status: Acute Assessment and Plan: Continue with CIWA. The patient was given a banana bag. Replace magnesium and potassium as needed. His last drink of alcohol was this morning. Continue with folic acid. Continue with thiamin. Continue with p.r.n. Ativan and Librium continue with gabapentin (2) LUIS (acute kidney injury): Code(s): N17.9 - Acute kidney failure, unspecified Status: Acute Assessment and Plan: Kidney function has improved. Monitor and replace electrolytes. (3) Debility, unspecified: Code(s): R53.81 - Other malaise Status: Acute Assessment and Plan: The patient has a poor oral intake. His BMI is 19. May consider nutritional evaluation. (4) Hyponatremia: Code(s): E87.1 - Hypo-osmolality and hyponatremia Status: Chronic Assessment and Plan: Monitor (5) UTI (urinary tract infection): Code(s): N39.0 - Urinary tract infection, site not specified Status: Acute Assessment and Plan: The patient was started on Rocephin. Blood and urine cultures have been ordered. (6) Hypothyroidism: Code(s): E03.9 - Hypothyroidism, unspecified Status: Acute Assessment and Plan: Continue with levothyroxine and check thyroid level. (7) Chronic anemia: Code(s): D64.9 - Anemia, unspecified Status: Acute Assessment and Plan: Patient's H&H is higher than normal which could be related to dehydration. (8) Congestive heart failure: Code(s): I50.9 - Heart failure, unspecified Status: Acute Assessment and Plan: Lasix and lisinopril on hold at this time. (9) Conjunctivitis: Code(s): H10.9 - Unspecified conjunctivitis Status: Acute Assessment and Plan: Continue with antibiotic eyedrops. (10) C. difficile colitis: Code(s): A04.72 - Enterocolitis due to Clostridium difficile, not specified as recurrent Status: Acute Assessment and Plan: Continue oral vancomycin. Subjective Date/time seen: 06/23/23 11:38 Interval history: No complaints Patient did not receive any lorazepam yesterday evening or overnight. A little sleepy this morning but according to the nurse he does wake up answer questions appropriately and moves all of his extremities. Exam Const: General: cooperative, healthy appearing, comfortable, no acute distress, alert, awake, Physically active, ill appearing, tired appearing, average body habitus, well nourished and thin Nutritional Appearance: average body habitus, well nourished and thin Orientation/consciousness: oriented to person, oriented to place, oriented to time and patient oriented x3 Limitations: no limitations HENMT: Head: normal to inspection, No palpable skull fracture present, normocephalic and atraumatic Ears: hearing grossly normal bilaterally and external ears normal Face/Nose/Sinus: Normal external nose present and Normal nares present Eyes: General: appearance normal, both eyes and all related structures Alignment and Position: alignment normal Periorbital: periorbital findings normal Eyelids: eyelid abnormality (Crusted bilateral eyelids.) Sclera: sclerae normal Pupils: Equal, round and reactive pupils present EOM: EOMs intact bilaterally Neck: Neck: normal visual inspection, full ROM, no lymphadenopathy, trachea midline and supple Chest: Chest palpation & inspection: normal inspection of the chest Resp: Effort & Inspection: normal respiratory effort Auscultation: clear to auscultation bilaterally Cardio: Palpation: normal PMI Rate: regular rate Rhythm: regular rhythm Heart sounds: S1 normal heart sound present and S2 normal heart sound present Peripheral pulses: Peripheral pulses 2+ throughout GI: Inspection: normal to inspection Auscultation: normal bowel sounds Rectal Exa
--- NOTE | 2023-06-23 14:10 | PCSTNOTE ---
Modified barium swallow study attempted. Patient unable to maintain position adequately to complete evaluation at this time.
[2023-06-23] MEDS: DEXTROSE 5%/0.45% SOD CHL 1,000 ML 100 ML IV CONT (16:00)
[2023-06-23 16:05] LABS: Glucose Point of Care 142 mg/dl (65-105)
[2023-06-23 18:42] LABS: Glucose Point of Care 116 mg/dl (65-105)
--- NOTE | 2023-06-23 22:21 | PC.NURSE ---
Patient to room 248. All belongings gathered.
[2023-06-24] VITALS (9 sets, daily range): BP systolic 98–141; BP diastolic 63–77; PULSE 50–115; RESP 18–21; TEMP 36.4–36.8; O2SAT 90–100
[2023-06-24] MEDS: VANCOMYCIN ORAL 125 MG/2.5 ML SYRUP PO ×5 (00:05→23:50)
[2023-06-24 00:09] LABS: Glucose Point of Care 113 mg/dl (65-105)
[2023-06-24] MEDS: LEVOTHYROXINE SODIUM 25 MCG TABLET PO (05:10)
[2023-06-24] MEDS: chlordiazePOXIDE (*CRX) 25 MG CAPSULE PO ×3 (05:10→21:04)
[2023-06-24] MEDS: POLYMYXIN/TRIMETHOPRIM OPHTH 10 ML DROPS 1 DROP EACH EYE ×5 (05:11→21:04)
[2023-06-24] MEDS: DEXTROSE 5%/0.45% SOD CHL 1,000 ML 100 ML IV CONT ×2 (05:14→21:08)
[2023-06-24 05:18] LABS: Glucose Point of Care 101 mg/dl (65-105)
[2023-06-24 06:09] LABS: Anion Gap 7 mmol/L (8-16); Blood Urea Nitrogen 15 mg/dL (9-20); Calcium 8.1 mg/dL (8.4-10.2); Carbon Dioxide 19 mmol/L (22-30); Chloride 114 mmol/L (98-107); Estimated CRCL calculation 144 ml/min; Estimated Glomerular Filt Rate > 60; Glucose 112 mg/dL (65-110); Magnesium 1.6 mg/dL (1.6-2.3); Potassium 3.1 mmol/L (3.4-5.0); Sodium 140 mmol/L (137-145)
[2023-06-24 08:31] LABS: Glucose Point of Care 99 mg/dl (65-105)
[2023-06-24 08:41] LABS: Glucose Point of Care 110 mg/dl (65-105)
[2023-06-24] MEDS: FERROUS SULFATE 325 MG TABLET DR BY MOUTH (09:54)
[2023-06-24] MEDS: DOCUSATE SODIUM 100 MG CAPSULE PO ×2 (09:54→21:04)
[2023-06-24] MEDS: CLOPIDOGREL BISULFATE 75 MG TABLET PO (09:54)
[2023-06-24] MEDS: GABAPENTIN 300 MG CAPSULE 600 MG PO (09:54)
[2023-06-24] MEDS: THIAMINE HCL 100 MG TABLET PO (09:54)
[2023-06-24] MEDS: FOLIC ACID 1 MG TABLET PO (09:54)
[2023-06-24] MEDS: DULoxetine HCL 60 MG CAPSULE.DR PO (09:54)
[2023-06-24] MEDS: POTASSIUM CHLORIDE 20 MEQ ER TABLET 40 MEQ PO (09:55)
[2023-06-24] MEDS: CYANOCOBALAMIN 1,000 MCG TABLET 1000 MCG PO (09:56)
[2023-06-24] MEDS: MEROPENEM 1 GM in SODIUM CHLORIDE 0.9% IV 100 ML 200 ML IVPB (09:56)
[2023-06-24] MEDS: SODIUM CHLORIDE 1 GM TABLET PO ×2 (09:56→18:29)
[2023-06-24] MEDS: MEGESTROL ACETATE (*CHEMO) ORAL SUSP 40 MG/ML SYR 400 MG PO ×2 (10:23→18:29)
--- NOTE | 2023-06-24 11:01 | PM.IMPN ---
Progress Note: A&P Assessment and Plan (1) Alcohol use disorder: Code(s): F10.90 - Alcohol use, unspecified, uncomplicated Status: Acute Assessment and Plan: Continue with CIWA. (2) LUIS (acute kidney injury): Code(s): N17.9 - Acute kidney failure, unspecified Status: Acute Assessment and Plan: Kidney function has improved. Monitor and replace electrolytes. (3) Debility, unspecified: Code(s): R53.81 - Other malaise Status: Acute Assessment and Plan: The patient has a poor oral intake. His BMI is 19. May consider nutritional evaluation. (4) Hyponatremia: Code(s): E87.1 - Hypo-osmolality and hyponatremia Status: Chronic Assessment and Plan: Monitor sodium level improved (5) UTI (urinary tract infection): Code(s): N39.0 - Urinary tract infection, site not specified Status: Acute Assessment and Plan: continue iv abx cx noted (6) Hypothyroidism: Code(s): E03.9 - Hypothyroidism, unspecified Status: Acute Assessment and Plan: Continue with levothyroxine and check thyroid level. (7) Chronic anemia: Code(s): D64.9 - Anemia, unspecified Status: Acute Assessment and Plan: monitor (8) Congestive heart failure: Code(s): I50.9 - Heart failure, unspecified Status: Acute Assessment and Plan: Lasix and lisinopril on hold at this time. appears compensated (9) Conjunctivitis: Code(s): H10.9 - Unspecified conjunctivitis Status: Acute Assessment and Plan: monitor (10) C. difficile colitis: Code(s): A04.72 - Enterocolitis due to Clostridium difficile, not specified as recurrent Status: Acute Assessment and Plan: Continue oral vancomycin. (11) AMS (altered mental status): Code(s): R41.82 - Altered mental status, unspecified Status: Acute Assessment and Plan: neuro consult ? [place] Subjective Date/time seen: 06/24/23 11:01 Interval history: alert answering questions Exam Const: General: cooperative, healthy appearing, comfortable, no acute distress, alert, awake, Physically active, ill appearing, tired appearing, average body habitus, well nourished and thin Nutritional Appearance: average body habitus, well nourished and thin Orientation/consciousness: oriented to person, oriented to place, oriented to time and patient oriented x3 Limitations: no limitations HENMT: Head: normal to inspection, No palpable skull fracture present, normocephalic and atraumatic Ears: hearing grossly normal bilaterally and external ears normal Face/Nose/Sinus: Normal external nose present and Normal nares present Eyes: General: appearance normal, both eyes and all related structures Alignment and Position: alignment normal Periorbital: periorbital findings normal Eyelids: eyelid abnormality (Crusted bilateral eyelids.) Sclera: sclerae normal Pupils: Equal, round and reactive pupils present EOM: EOMs intact bilaterally Neck: Neck: normal visual inspection, full ROM, no lymphadenopathy, trachea midline and supple Chest: Chest palpation & inspection: normal inspection of the chest Resp: Effort & Inspection: normal respiratory effort Auscultation: clear to auscultation bilaterally Cardio: Palpation: normal PMI Rate: regular rate Rhythm: regular rhythm Heart sounds: S1 normal heart sound present and S2 normal heart sound present Peripheral pulses: Peripheral pulses 2+ throughout GI: Inspection: normal to inspection Auscultation: normal bowel sounds Rectal Exam: deferred Back/Spine/Pelvis: Cervical Spine: cervical ROM normal Skin: General skin exam: normal color Lesions: no lesions Rashes: no rashes Trauma: no lacerations or abrasions Wounds: no wounds Hair: normal Nails: normal Other: Multiple bruises to arm Neuro: General: oriented to person, oriented to place, oriented to time and patient oriented
--- NOTE | 2023-06-24 11:47 | PCSTNOTE ---
Checked on patient at bedside to see whether he appears able to participate in modified barium swallow study. He is sleepy and unable to stay awake, speech is unintelligible, unable to participate at this time.
[2023-06-24 12:13] LABS: Glucose Point of Care 44 mg/dl (65-105)
[2023-06-24] MEDS: GLUCOSE ORAL GEL 15 GM OF GLUCSE IN 37.5 GM TUBE PO (12:24)
[2023-06-24 12:32] LABS: Basophils Absolute Auto 0.1 K/mm3 (0.0-0.1); Eosinophils Percent Auto 0.3 % (0-4.4); Hemoglobin 8.8 g/dL (14.0-18.0); Immature Granulocyte Absolute 0.11 K/mm3 (0.00-0.031); Immature Granulocyte Percent A 1.1 % (0-0.5); Lymphocytes Absolute Auto 2.53 K/mm3 (0.9-3.2); Lymphocytes Percent Auto 25.3 % (18.3-44.2); Mean Corpuscular HGB Conc 32.6 g/dl (32-36); Mean Corpuscular Volume 104.2 fl (80-100); Mean Platelet Volume 9.4 fl (7.4-10.4); Monocytes Absolute Auto 1.3 K/mm3 (0.1-0.6); Monocytes Percent Auto 13.2 % (2.6-8.5); Neutrophils Absolute Auto 5.9 K/mm3 (1.3-6.7); Neutrophils Percent Auto 59.1 % (45.5-73.1); Platelet Count Result 318 k/mm3 (150-375); Red Blood Count 2.59 M/mm3 (4.6-6.20)
[2023-06-24 12:37] LABS: Anion Gap 3 mmol/L (8-16); Blood Urea Nitrogen 14 mg/dL (9-20); Calcium 8.2 mg/dL (8.4-10.2); Carbon Dioxide 21 mmol/L (22-30); Chloride 113 mmol/L (98-107); Estimated CRCL calculation 144 ml/min; Estimated Glomerular Filt Rate > 60; Glucose 108 mg/dL (65-110); Potassium 3.4 mmol/L (3.4-5.0); Sodium 137 mmol/L (137-145)
[2023-06-24] MEDS: POTASSIUM CHLORIDE 20 MEQ PACKET (FOR LIQUID) PO (13:02)
[2023-06-24 13:09] LABS: Glucose Point of Care 87 mg/dl (65-105)
[2023-06-24 17:27] LABS: Glucose Point of Care 90 mg/dl (65-105)
[2023-06-24] MEDS: ERTAPENEM 1 GM/NS 50 ML 1 GM/50 ML BAG IVPB (18:29)
[2023-06-25] VITALS (13 sets, daily range): BP systolic 101–115; BP diastolic 74–92; PULSE 113–126; RESP 18–21; TEMP 36.6–37.2; O2SAT 93–100
[2023-06-25 05:41] LABS: Anion Gap 2 mmol/L (8-16); Blood Urea Nitrogen 12 mg/dL (9-20); Calcium 8.2 mg/dL (8.4-10.2); Carbon Dioxide 23 mmol/L (22-30); Chloride 114 mmol/L (98-107); Estimated CRCL calculation 123 ml/min; Estimated Glomerular Filt Rate > 60; Glucose 144 mg/dL (65-110); Potassium 3.2 mmol/L (3.4-5.0); Sodium 139 mmol/L (137-145)
[2023-06-25] MEDS: chlordiazePOXIDE (*CRX) 25 MG CAPSULE PO ×3 (06:01→22:06)
[2023-06-25] MEDS: LEVOTHYROXINE SODIUM 25 MCG TABLET PO (06:01)
[2023-06-25] MEDS: POLYMYXIN/TRIMETHOPRIM OPHTH 10 ML DROPS 1 DROP EACH EYE ×5 (06:01→20:29)
[2023-06-25] MEDS: VANCOMYCIN ORAL 125 MG/2.5 ML SYRUP PO ×3 (06:02→17:49)
[2023-06-25 08:51] LABS: Glucose Point of Care 126 mg/dl (65-105)
[2023-06-25] MEDS: MEGESTROL ACETATE (*CHEMO) ORAL SUSP 40 MG/ML SYR 400 MG PO ×2 (09:27→17:49)
[2023-06-25] MEDS: POTASSIUM CHLORIDE 20 MEQ ER TABLET 40 MEQ PO (09:27)
[2023-06-25] MEDS: DEXTROSE 5%/0.45% SOD CHL 1,000 ML 100 ML IV CONT ×2 (09:27→20:21)
--- NOTE | 2023-06-25 10:38 | PM.IMPN ---
Progress Note: A&P Assessment and Plan (1) Alcohol use disorder: Code(s): F10.90 - Alcohol use, unspecified, uncomplicated Status: Acute Assessment and Plan: Continue with CIWA. (2) LUIS (acute kidney injury): Code(s): N17.9 - Acute kidney failure, unspecified Status: Acute Assessment and Plan: Kidney function has improved. Monitor and replace electrolytes. (3) Debility, unspecified: Code(s): R53.81 - Other malaise Status: Acute Assessment and Plan: The patient has a poor oral intake. His BMI is 19. May consider nutritional evaluation. (4) Hyponatremia: Code(s): E87.1 - Hypo-osmolality and hyponatremia Status: Chronic Assessment and Plan: Monitor sodium level improved (5) UTI (urinary tract infection): Code(s): N39.0 - Urinary tract infection, site not specified Status: Acute Assessment and Plan: continue iv abx cx noted (6) Hypothyroidism: Code(s): E03.9 - Hypothyroidism, unspecified Status: Acute Assessment and Plan: Continue with levothyroxine and check thyroid level. (7) Chronic anemia: Code(s): D64.9 - Anemia, unspecified Status: Acute Assessment and Plan: monitor (8) Congestive heart failure: Code(s): I50.9 - Heart failure, unspecified Status: Acute Assessment and Plan: Lasix and lisinopril on hold at this time. appears compensated (9) Conjunctivitis: Code(s): H10.9 - Unspecified conjunctivitis Status: Acute Assessment and Plan: monitor (10) C. difficile colitis: Code(s): A04.72 - Enterocolitis due to Clostridium difficile, not specified as recurrent Status: Acute Assessment and Plan: Continue oral vancomycin. (11) AMS (altered mental status): Code(s): R41.82 - Altered mental status, unspecified Status: Acute Assessment and Plan: neuro consult ? [place] Plan will likely need placement Subjective Date/time seen: 06/25/23 10:38 Interval history: more alert today makes eye contact answers some questions not eating much Exam Const: General: cooperative, healthy appearing, comfortable, no acute distress, alert, awake, Physically active, ill appearing, tired appearing, average body habitus, well nourished and thin Nutritional Appearance: average body habitus, well nourished and thin Orientation/consciousness: oriented to person, oriented to place, oriented to time and patient oriented x3 Limitations: no limitations HENMT: Head: normal to inspection, No palpable skull fracture present, normocephalic and atraumatic Ears: hearing grossly normal bilaterally and external ears normal Face/Nose/Sinus: Normal external nose present and Normal nares present Eyes: General: appearance normal, both eyes and all related structures Alignment and Position: alignment normal Periorbital: periorbital findings normal Eyelids: eyelid abnormality (Crusted bilateral eyelids.) Sclera: sclerae normal Pupils: Equal, round and reactive pupils present EOM: EOMs intact bilaterally Neck: Neck: normal visual inspection, full ROM, no lymphadenopathy, trachea midline and supple Chest: Chest palpation & inspection: normal inspection of the chest Resp: Effort & Inspection: normal respiratory effort Auscultation: clear to auscultation bilaterally Cardio: Palpation: normal PMI Rate: regular rate Rhythm: regular rhythm Heart sounds: S1 normal heart sound present and S2 normal heart sound present Peripheral pulses: Peripheral pulses 2+ throughout GI: Inspection: normal to inspection Auscultation: normal bowel sounds Rectal Exam: deferred Back/Spine/Pelvis: Cervical Spine: cervical ROM normal Skin: General skin exam: normal color Lesions: no lesions Rashes: no rashes Trauma: no lacerations or abrasions Wounds: no wounds Hair: normal Nails: normal Other: Multiple bruises to arm Neuro:
--- NOTE | 2023-06-25 11:58 | WPDNEURCNPN ---
Assessment and Plan Assessment and plan (1) Alcohol use disorder: Code(s): F10.90 - Alcohol use, unspecified, uncomplicated Status: Acute (2) Depression: Code(s): F32.A - Depression, unspecified Status: Acute (3) Seizure: Code(s): R56.9 - Unspecified convulsions Status: Acute Plan 1 chronic alcoholism with secondary complications. 2. Electrolyte imbalance which is being corrected 3. Generalized and focal weakness with documented abnormal CT scan 4 patient will benefit from the rehab with obviously underlying mental nutrition Consult date: 06/25/23 HPI: Simon Barraza is a 58 year old male Admitted to the hospital for the complaints of generalized weakness in addition to the history of alcohol use disorder and with the information that he had the last drink in the morning when he reported to the ER he was complaining of being weak all over with anorexia without nausea or vomiting he had been taking multiple home medications included levothyroxine 25 mcg/ml daily, megestrol 400 mg twice a day furosemide 40 mg daily gabapentin 800 mg 3 times a day lisinopril 20 mg daily duloxetine 60 mg daily and tramadol 50 mg q.6 hours p.r.n.. He has noted early allergic to amoxicillin and has ongoing history of GI bleed, stroke, alcohol dependence, GERD, history of smoking packs per day 1 with years smoked 21 and currently everyday smoker with currently alcohol intake 21 drinks per week on initial exam he was generally stable vital signs were normal and he was afebrile CBC was with hemoglobin only 10.0 basic metabolic panel abnormal with sodium 124 potassium less than 2.[address] scan of the head was negative except the chronic bilateral occipital infarct left greater than the right left cerebellar hemispheric infarct chronic left basal ganglia lacunar infarct but again without any bleed chest x-ray negative modified barium swallow could not be completed and a renal ultrasound without hydronephrosis, he is already receiving clopidogrel 75 mg daily in addition to all other medication as mentioned before Review of Systems Review of Systems: All systems reviewed & are unremarkable except as noted in HPI and below [facility] Past Medical History Medical History (Updated 06/22/23 @ 11:15 by Sundar House MD) Acute GI bleeding Acute ischemic stroke Adult failure to thrive Alcohol dependence Cerebrovascular accident With left-sided residual weakness. Chronic anemia Chronic hyponatremia Congestive heart failure Echocardiogram on 07/17/2021 showed normal LV chamber dimension and function with an estimated EF of 65 to 70% and grade 1 diastolic dysfunction with mild pulmonary hypertension estimated pulmonary arterial systolic pressure of 37 mmHg. Conjunctivitis COVID (08/2021) DVT prophylaxis Gastroesophageal reflux disease Generalized weakness HCAP (healthcare-associated pneumonia) Hypertension Hypokalemia Hypothyroidism Orthostatic hypotension Pneumonia Protein calorie malnutrition Rectal bleeding Sepsis Stroke Tobacco dependence Unwitnessed fall Urinary tract infection UTI (urinary tract infection) Surgical History Surgical History History of excision of testicular mass With benign histology. Family History Family History Father Chronic obstructive pulmonary disease Congestive heart failure Hypertension Mother Abdominal aortic aneurysm rupture Daughter Type 1 diabetes mellitus Social History Social History (Updated 06/21/23 @ 00:37 by Hannah Rogers NP) Social History: The patient lives with his brother The patient has 3 children. And is disabled. The patient states that he likes to drink whiskey and does not like to drink beer. The patient is single and unemployed Surrogate decision maker: Beremali Gagnon, sister. Code status: Full co
[2023-06-25 12:06] LABS: Glucose Point of Care 108 mg/dl (65-105)
--- NOTE | 2023-06-25 14:39 | PCSTNOTE ---
Please refer to the Bedside Swallow Evaluation in the EMR. Please note, silent aspiration cannot be ruled out at bedside.
[2023-06-25 17:23] LABS: Alpha 1 Globulin 0.4 g/dL (0.2-0.3); Alpha 2 Globulin 0.7 g/dL (0.5-0.9); Beta 1 Globulin 0.2 g/dL (0.4-0.6); Gamma Globulin 0.7 g/dL (0.8-1.7); Protein, Total 4.3 g/dL (6.1-8.1)
[2023-06-25] MEDS: ERTAPENEM 1 GM/NS 50 ML 1 GM/50 ML BAG IVPB (17:49)
[2023-06-25] MEDS: SODIUM CHLORIDE 1 GM TABLET PO (17:49)
[2023-06-25 18:40] LABS: Glucose Point of Care 112 mg/dl (65-105)
[2023-06-25] MEDS: METOPROLOL TARTRATE 12.5 MG TABLET PO (20:26)
[2023-06-25] MEDS: DOCUSATE SODIUM 100 MG CAPSULE PO (20:26)
[2023-06-25 22:04] LABS: Osmolality, Urine 286 mOsm/kg (50-1200)
[2023-06-26] VITALS (10 sets, daily range): BP systolic 90–106; BP diastolic 73–75; PULSE 92–112; RESP 18; TEMP 36.4–36.6; O2SAT 94–96
[2023-06-26] MEDS: VANCOMYCIN ORAL 125 MG/2.5 ML SYRUP PO ×4 (00:11→17:11)
[2023-06-26 05:48] LABS: Anion Gap 3 mmol/L (8-16); Blood Urea Nitrogen 11 mg/dL (9-20); Calcium 7.8 mg/dL (8.4-10.2); Carbon Dioxide 24 mmol/L (22-30); Chloride 114 mmol/L (98-107); Estimated CRCL calculation 138 ml/min; Estimated Glomerular Filt Rate > 60; Glucose 109 mg/dL (65-110); Potassium 2.9 mmol/L (3.4-5.0); Sodium 141 mmol/L (137-145)
[2023-06-26] MEDS: LEVOTHYROXINE SODIUM 25 MCG TABLET PO (06:22)
[2023-06-26] MEDS: POLYMYXIN/TRIMETHOPRIM OPHTH 10 ML DROPS 1 DROP EACH EYE ×2 (06:22→09:35)
[2023-06-26] MEDS: chlordiazePOXIDE (*CRX) 25 MG CAPSULE PO (06:22)
[2023-06-26 07:41] LABS: Glucose Point of Care 85 mg/dl (65-105)
[2023-06-26 07:51] LABS: Magnesium 1.4 mg/dL (1.6-2.3)
--- NOTE | 2023-06-26 09:25 | PM.IMPN ---
Progress Note: A&P Assessment and Plan (1) Alcohol use disorder: Code(s): F10.90 - Alcohol use, unspecified, uncomplicated Status: Acute Assessment and Plan: Patient with known alcohol use disorder. Patient on thiamine and folate. CIWA score around 4. Currently on Librium 25 mg t.i.d.. Start to wean Librium. continue with CIWA. (2) Hypoglycemia: Code(s): E16.2 - Hypoglycemia, unspecified Status: Acute Assessment and Plan: Patient had a glucose of 44 2 days ago. He was started on dextrose with IV fluids. Glucose better controlled. Will decrease IV dextrose and continue monitor glucose levels. Suspect this is related to hepatic insufficiency. Continue to follow (3) AMS (altered mental status): Code(s): R41.82 - Altered mental status, unspecified Status: Acute Assessment and Plan: Patient with hx of CVA and left sided weakness. He has garbled speech and is difficult to understand. CT of the head shows prominent central and cortical cerebral and cerebellar atrophy greater than expected for age. He also has chronic bilateral occipital infarcts left greater than right and chronic left cerebellar hemispheric infarcts and chronic left basilar ganglia lacunar infarcts but no change since March. Some of the altered mental status findings may be related to electrolyte abnormalities and/or alcoholism and/or chronic neurologic changes. Appreciate Neurology input. Check Ammonia level. Add ASA and Lipitor given hx of CVA. Monitor LFTs and Hgb closely. (4) Hypokalemia: Code(s): E87.6 - Hypokalemia Status: Acute Assessment and Plan: Potassium level <2 on admission. Potassium better but low again this morning. Replacement ordered. Mag level low as well and will replace. (5) Hyponatremia: Code(s): E87.1 - Hypo-osmolality and hyponatremia Status: Chronic Assessment and Plan: Na 124 on admission. He is on NaCl tabs on admisison but not sure he was taking these. Na climbed to 132 in 18 hours and now back to normal. Na level better. Will back off on NaCl tabs. Change IV fluids to D5NS. Continue to monitor. (6) UTI (urinary tract infection): Code(s): N39.0 - Urinary tract infection, site not specified Status: Acute Assessment and Plan: UA consistent with UTI. UCx growing ESBL Ecoli. BCx NGTD. Continue Ertapenem. (7) LUIS (acute kidney injury): Code(s): N17.9 - Acute kidney failure, unspecified Status: Acute Assessment and Plan: Patient presents with acute kidney injury with creatinine of 5.6. He has a normal baseline creatinine. With IV fluids, creatinine has normalized. Acute kidney injury has resolved. (8) C. difficile colitis: Code(s): A04.72 - Enterocolitis due to Clostridium difficile, not specified as recurrent Status: Acute Assessment and Plan: Patient with diarrhea and was CDiff toxin positive. Stool volume about the same. Continue oral vancomycin. (9) Congestive heart failure: Code(s): I50.9 - Heart failure, unspecified Status: Acute Assessment and Plan: Lasix and lisinopril on hold at this time due to the LUIS. Appears euvolemic. Cut IV fluid rate down. Resume when able. (10) Debility, unspecified: Code(s): R53.81 - Other malaise Status: Acute Assessment and Plan: The patient has poor oral intake. His BMI is 22. Continue dietary supplements. Encourage oral intake. PT/OT (11) Chronic anemia: Code(s): D64.9 - Anemia, unspecified Status: Acute Assessment and Plan: Hgb 8-9 range and this appears to be chronic. Follow. (12) Conjunctivitis: Code(s): H10.9 - Unspecified conjunctivitis Status: Acute Assessment and Plan: Eye drops werer ordered. He has completed 5 days so will stop. (13) Hypothyroidism: Code(s): E03.9 - Hypothyroidism, unspecified Stat
[2023-06-26] MEDS: DEXTROSE 5%/0.45% SOD CHL 1,000 ML 50 ML IV CONT (09:27)
[2023-06-26] MEDS: POTASSIUM CHLORIDE INJ 40 MEQ in SODIUM CHLORIDE 0.9% IV 500 ML 130 MEQ IVPB (09:27)
--- NOTE | 2023-06-26 09:29 | P.CDI_ITS ---
CDI Query Clarification Request Elevated BNP on 06/20/23 lab work. Documented history of CHF. CHF noted in the assessment and plan. Lasix listed as a home medication. Please specify type and acuity of heart failure if known. * Acute * Chronic * Acute on Chronic * Unknown * Systolic * Diastolic * Combined Systolic and Diastolic * Unknown <Montserrat Green RN - Last Filed: 06/26/23 09:31> Provider Comments Not my patient <Harriett Lang APRN - Last Filed: 06/26/23 13:46>
--- NOTE | 2023-06-26 09:29 | WPDCDIQUERY2 ---
CDI Query Clarification Request Elevated BNP on 06/20/23 lab work. Documented history of CHF. CHF noted in the assessment and plan. Lasix listed as a home medication. Please specify type and acuity of heart failure if known. Acute Chronic Acute on Chronic Unknown Systolic Diastolic Combined Systolic and Diastolic Unknown <Montserrat Green RN - Last Filed: 06/26/23 09:31> Provider Comments Not my patient <Harriett Lang APRN - Last Filed: 06/26/23 13:46>
[2023-06-26] MEDS: THIAMINE HCL 100 MG TABLET PO (09:34)
[2023-06-26] MEDS: CLOPIDOGREL BISULFATE 75 MG TABLET PO (09:34)
[2023-06-26] MEDS: GABAPENTIN 300 MG CAPSULE 600 MG PO (09:34)
[2023-06-26] MEDS: SODIUM CHLORIDE 500 MG TABLET PO ×2 (09:35→17:10)
[2023-06-26] MEDS: CYANOCOBALAMIN 1,000 MCG TABLET 1000 MCG PO (09:35)
[2023-06-26] MEDS: FOLIC ACID 1 MG TABLET PO (09:35)
[2023-06-26] MEDS: MEGESTROL ACETATE (*CHEMO) ORAL SUSP 40 MG/ML SYR 400 MG PO ×2 (09:35→17:10)
[2023-06-26] MEDS: DULoxetine HCL 60 MG CAPSULE.DR PO (09:35)
[2023-06-26] MEDS: METOPROLOL TARTRATE 12.5 MG TABLET PO (09:35)
[2023-06-26] MEDS: FERROUS SULFATE 325 MG TABLET DR BY MOUTH (09:35)
[2023-06-26 10:29] LABS: Ammonia < 9 umol/L (9-30)
--- NOTE | 2023-06-26 11:35 | PCNFU ---
Nutrition Follow-Up Complete: Underweight related to alcohol abuse/variable appetite and intake as evidenced by BMI of 19.4 kg/m2. 1. Intake of 75-100% x 2-3 meals & supplement/day x 2-3 days per review of EHR on follow-up. 2. Weight to remain within 2% of admission weight (65 kg) through follow-up. Pt current nutrition is Heart Healthy. Nutrition recommendation: Easy to Chew,Level 7 due to dentition. Last recorded weight is 74 kg. Bowel Motility: +Bm reported 06/26 Labs Reviewed:Cr 0.5,K 2.9 Meds Noted:B12, Colace, Megace, Folic Acid, Thiamine, Ferrous Sulfate. Skin: WNL Additional Notes: Patient had swallow eval on 06/25 recommending regular consistencies. Diet advanced to a heart healthy diet. Breakfast today 5% consumed with 100 ml of Ensure compact. Spoke with CORPORATE COUNSELOR today regarding meal. Patient has trouble chewing due to dentition. Diet order recommend change to East to Chew, Level 7. Ensure compact BID will remain BID providing an additional 220 kcals and 9 gms protein. Agree with diet orders. Monitor PO intake, weight, labs every 5 days.
[2023-06-26] MEDS: GLUCAGON FOR INJ 1 MG VIAL IM (12:00)
[2023-06-26 12:06] LABS: Glucose Point of Care 56 mg/dl (65-105)
[2023-06-26] MEDS: DEXTROSE 50% 25 GM/50 ML SYRINGE IV PUSH ×2 (12:25→12:42)
[2023-06-26 13:08] LABS: Glucose Point of Care 109 mg/dl (65-105)
[2023-06-26 13:08] LABS: Glucose Point of Care 26 mg/dl (65-105)
[2023-06-26 13:08] LABS: Glucose Point of Care 51 mg/dl (65-105)
[2023-06-26] MEDS: LIDOCAINE HCL 1% PF INJ 5 ML VIAL INFILTRATE (13:40)
[2023-06-26] MEDS: MAGNESIUM SULF 2 GM/WATER 50ML 2 GM/50 ML BAG IVPB (14:03)
[2023-06-26] MEDS: ERTAPENEM 1 GM/NS 50 ML 1 GM/50 ML BAG IVPB (17:10)
[2023-06-26 17:34] LABS: Chloride Rand Ur 26 mmol/L (32-290); Chloride/Creatinine Rand Ur 17 (23-275); Creatinine Random Urine 150 mg/dL (20-320)
[2023-06-26 17:47] LABS: Complement Total CH50 55 U/mL (31-60)
[2023-06-26 18:36] LABS: Glucose Point of Care 82 mg/dl (65-105)
[2023-06-26 19:57] LABS: Potassium 3.3 mmol/L (3.4-5.0)
[2023-06-26 20:29] LABS: Anti Streptolysin O Screen 85 IU/mL (<200)
[2023-06-26] MEDS: DEXTROSE 5%/0.45% SOD CHL 1,000 ML 100 ML IV CONT (21:15)
[2023-06-26] MEDS: CENTRAL LINE FLUSH 10 ML IV PUSH (22:35)
[2023-06-26 22:46] LABS: Glucose Point of Care 127 mg/dl (65-105)
[2023-06-27] VITALS (11 sets, daily range): BP systolic 97–98; BP diastolic 72–79; PULSE 92–101; RESP 18–20; TEMP 35.8–36.2; O2SAT 95–100
[2023-06-27] MEDS: VANCOMYCIN ORAL 125 MG/2.5 ML SYRUP PO ×2 (00:45→05:51)
[2023-06-27] MEDS: CENTRAL LINE FLUSH 10 ML IV PUSH ×3 (05:51→21:10)
[2023-06-27 06:06] LABS: Basophils Absolute Auto 0.1 K/mm3 (0.0-0.1); Basophils Percent Auto 0.5 % (0.2-1.2); Eosinophils Percent Auto 0.3 % (0-4.4); Hematocrit 22.6 % (42.0-52.0); Hemoglobin 7.5 g/dL (14.0-18.0); Immature Granulocyte Absolute 0.14 K/mm3 (0.00-0.031); Immature Granulocyte Percent A 1.1 % (0-0.5); Lymphocytes Absolute Auto 2.29 K/mm3 (0.9-3.2); Lymphocytes Percent Auto 18.2 % (18.3-44.2); Mean Corpuscular HGB Conc 33.2 g/dl (32-36); Mean Corpuscular Hemoglobin 34.4 pg (26-34); Mean Corpuscular Volume 103.7 fl (80-100); Mean Platelet Volume 10.1 fl (7.4-10.4); Monocytes Absolute Auto 1.2 K/mm3 (0.1-0.6); Monocytes Percent Auto 9.4 % (2.6-8.5); Neutrophils Absolute Auto 8.9 K/mm3 (1.3-6.7); Neutrophils Percent Auto 70.5 % (45.5-73.1); Nucleated Red Blood Cells Absolute Auto 0.5 K/mm3 (0.0-0.012); Nucleated Red Blood Cells Perc 3.6 % (0.0-0.2); Platelet Count Result 194 k/mm3 (150-375); Red Blood Count 2.18 M/mm3 (4.6-6.20); Red Cell Distribution Width 18.1 % (11.5-14.5); White Blood Count 12.6 K/mm3 (4.5-10.0)
[2023-06-27 06:17] LABS: Alanine Aminotransferase 17 U/L (6-50); Albumin Level 1.8 g/dL (3.5-5.1); Alkaline Phosphatase 92 U/L (38-126); Anion Gap 1 mmol/L (8-16); Aspartate Amino Transferase 22 U/L (17-59); Bilirubin,Total 0.3 mg/dL (0.2-1.3); Blood Urea Nitrogen 9 mg/dL (9-20); Calcium 7.4 mg/dL (8.4-10.2); Carbon Dioxide 23 mmol/L (22-30); Chloride 114 mmol/L (98-107); Estimated CRCL calculation 173 ml/min; Estimated Glomerular Filt Rate > 60; Glucose 113 mg/dL (65-110); Magnesium 1.7 mg/dL (1.6-2.3); Phosphorus 2.2 mg/dL (2.5-4.5); Potassium 2.6 mmol/L (3.4-5.0); Sodium 138 mmol/L (137-145)
[2023-06-27 06:43] LABS: Glucose Point of Care 113 mg/dl (65-105)
[2023-06-27] MEDS: MAGNESIUM SULF 2 GM/WATER 50ML 2 GM/50 ML BAG IVPB (07:40)
[2023-06-27] MEDS: POTASSIUM CHLORIDE INJ 40 MEQ in SODIUM CHLORIDE 0.9% IV 500 ML 130 MEQ IVPB (07:40)
[2023-06-27] MEDS: POTASSIUM/PHOSPHORUS/SODIUM 1.5 GM PACKET 1 PACKET PO (07:50)
[2023-06-27] MEDS: CLOPIDOGREL BISULFATE 75 MG TABLET PO (08:03)
[2023-06-27] MEDS: MEGESTROL ACETATE (*CHEMO) ORAL SUSP 40 MG/ML SYR 400 MG PO (08:04)
[2023-06-27] MEDS: chlordiazePOXIDE (*CRX) 10 MG CAPSULE PO (08:04)
[2023-06-27] MEDS: CYANOCOBALAMIN 1,000 MCG TABLET 1000 MCG PO (08:08)
[2023-06-27] MEDS: ATORVASTATIN 40 MG TABLET PO (08:08)
[2023-06-27] MEDS: DEXTROSE 5% 1,000 ML 1,000 ML 100 ML IVPB (09:56)
--- NOTE | 2023-06-27 11:22 | PCPTNOTE ---
Attempted PT evaluation, pt unarousable at this time. Will follow.
--- NOTE | 2023-06-27 12:26 | PM.IMPN ---
Progress Note: A&P Assessment and Plan (1) AMS (altered mental status): Code(s): R41.82 - Altered mental status, unspecified Status: Acute Assessment and Plan: Patient with hx of CVA and left sided weakness. He has garbled speech and is difficult to understand. CT of the head shows prominent central and cortical cerebral and cerebellar atrophy greater than expected for age. He also has chronic bilateral occipital infarcts left greater than right and chronic left cerebellar hemispheric infarcts and chronic left basilar ganglia lacunar infarcts but no change since March. Ammonia level negative. Some of the altered mental status findings may be related to electrolyte abnormalities and/or alcoholism and/or chronic neurologic changes. Having dysphagia. Appreciate Neurology input. (2) Dysphagia: Code(s): R13.10 - Dysphagia, unspecified Status: Acute Assessment and Plan: Discussed options with [id number]. We can attempt NG tube feeding suspect patient will need long-term G-tube given the history that he has chronic poor oral intake. Plan is to place NG tube with tube feedings for a few days. Zavyx-va-crhtjlah will be back in town on Saturday and will most likely make a decision at that point about proceeding with feeding tube versus hospice. All questions were answered (3) Alcohol use disorder: Code(s): F10.90 - Alcohol use, unspecified, uncomplicated Status: Acute Assessment and Plan: Patient with known alcohol use disorder. Patient on thiamine and folate. CIWA score around 4. Currently on Librium 25 mg t.i.d.. Continue to wean Librium. continue with CIWA. (4) Hypoglycemia: Code(s): E16.2 - Hypoglycemia, unspecified Status: Acute Assessment and Plan: Patient had hypoglycemia. He was started on dextrose with IV fluids. Glucose better controlled. Suspect this is related to hepatic insufficiency. Continue IV fluids with dextrose but wean down once TF started. Continue to follow (5) Hypokalemia: Code(s): E87.6 - Hypokalemia Status: Acute Assessment and Plan: Potassium level <2 on admission. Potassium better but continues to be low this morning. Replacement ordered. Mag level low as well and was replaced. (6) Hyponatremia: Code(s): E87.1 - Hypo-osmolality and hyponatremia Status: Chronic Assessment and Plan: Na 124 on admission. He is on NaCl tabs on admisison but not sure he was taking these. Na climbed to 132 in 18 hours and now back to normal. Na level better. Continue to monitor. (7) UTI (urinary tract infection): Code(s): N39.0 - Urinary tract infection, site not specified Status: Acute Assessment and Plan: UA consistent with UTI. UCx growing ESBL Ecoli. BCx NGTD. Continue Ertapenem for 7 days. (8) LUIS (acute kidney injury): Code(s): N17.9 - Acute kidney failure, unspecified Status: Acute Assessment and Plan: Patient presents with acute kidney injury with creatinine of 5.6. He has a normal baseline creatinine. With IV fluids, creatinine has normalized. Acute kidney injury has resolved. (9) C. difficile colitis: Code(s): A04.72 - Enterocolitis due to Clostridium difficile, not specified as recurrent Status: Acute Assessment and Plan: Patient with diarrhea and was CDiff toxin positive. Still having multiple stools. Continue oral vancomycin. (10) Congestive heart failure: Code(s): I50.9 - Heart failure, unspecified Status: Acute Assessment and Plan: Lasix and lisinopril on hold at this time due to the LUIS. Appears euvolemic. Resume when able. (11) Debility, unspecified: Code(s): R53.81 - Other malaise Status: Acute Assessment and Plan: The patient has poor oral intake. His BMI is 22. Continue dietary supplements. Encourage oral intake. Continue PT/OT (12) Chronic anemia:
[2023-06-27 12:33] LABS: Glucose Point of Care 100 mg/dl (65-105)
[2023-06-27] MEDS: KCL 40 MEQ/D5/0.9% SOD CHL 1,000 ML 70 ML IV CONT (13:00)
--- NOTE | 2023-06-27 13:33 | PCDIET ---
Dietitian consult for tube feedings. Patient failed MBS today. NGT to be placed and tube feedings to start of Glucerna 1.2 at 10 ml/hr increase by 10 ml q 1 hour to goal rate of 60 ml/hr. Recommend tube feedings goal rate at 75 ml/hr, providing 1980 kcals/99 gms protein/1328 ml water. Meeting 100% kcal needs at 30 kcal/kg and 100% protein needs at 1.5 gm/kg. Flush 30 ml q 4 hours. Will continue to monitor every Saturday and Saturday.
[2023-06-27] MEDS: ALBUMIN HUMAN 25% 25 GM/100 ML 100 ML IVPB ×2 (13:41→17:53)
[2023-06-27] MEDS: MEGESTROL ACETATE (*CHEMO) ORAL SUSP 40 MG/ML SYR 400 MG FEED TUBE (17:10)
[2023-06-27] MEDS: ERTAPENEM 1 GM/NS 50 ML 1 GM/50 ML BAG IVPB (17:11)
[2023-06-27] MEDS: SODIUM CHLORIDE 500 MG TABLET FEED TUBE (17:11)
[2023-06-27] MEDS: VANCOMYCIN ORAL 125 MG/2.5 ML SYRUP FEED TUBE (17:11)
[2023-06-27 18:51] LABS: Glucose Point of Care 100 mg/dl (65-105)
[2023-06-27] MEDS: POTASSIUM CHLORIDE INJ 40 MEQ in DEXTROSE 5% IN WATER 500 ML 130 MEQ IVPB (21:10)
[2023-06-27 23:32] LABS: Glucose Point of Care 132 mg/dl (65-105)
[2023-06-28] VITALS (15 sets, daily range): BP systolic 96–113; BP diastolic 73–90; PULSE 98–118; RESP 19–24; TEMP 35.9–36.5; O2SAT 91–98
[2023-06-28] MEDS: VANCOMYCIN ORAL 125 MG/2.5 ML SYRUP FEED TUBE ×5 (00:14→23:03)
[2023-06-28] MEDS: ALBUMIN HUMAN 25% 25 GM/100 ML 100 ML IVPB ×5 (00:14→23:03)
[2023-06-28] MEDS: LEVOTHYROXINE SODIUM 25 MCG TABLET FEED TUBE (06:37)
[2023-06-28] MEDS: CENTRAL LINE FLUSH 10 ML IV PUSH ×3 (06:37→22:56)
[2023-06-28 06:41] LABS: Basophils Percent Auto 0.4 % (0.2-1.2); Eosinophils Absolute Auto 0.1 K/mm3 (0-0.3); Eosinophils Percent Auto 0.5 % (0-4.4); Hematocrit 21.5 % (42.0-52.0); Immature Granulocyte Absolute 0.13 K/mm3 (0.00-0.031); Immature Granulocyte Percent A 1.2 % (0-0.5); Lymphocytes Absolute Auto 1.87 K/mm3 (0.9-3.2); Lymphocytes Percent Auto 17.3 % (18.3-44.2); Mean Corpuscular HGB Conc 32.1 g/dl (32-36); Mean Corpuscular Hemoglobin 33.5 pg (26-34); Mean Corpuscular Volume 104.4 fl (80-100); Mean Platelet Volume 10.2 fl (7.4-10.4); Monocytes Percent Auto 9.3 % (2.6-8.5); Neutrophils Absolute Auto 7.7 K/mm3 (1.3-6.7); Neutrophils Percent Auto 71.3 % (45.5-73.1); Nucleated Red Blood Cells Absolute Auto 0.3 K/mm3 (0.0-0.012); Nucleated Red Blood Cells Perc 2.4 % (0.0-0.2); Platelet Count Result 169 k/mm3 (150-375); Red Blood Count 2.06 M/mm3 (4.6-6.20); Red Cell Distribution Width 18.5 % (11.5-14.5); White Blood Count 10.8 K/mm3 (4.5-10.0)
[2023-06-28 06:44] LABS: Hemoglobin 6.9 g/dL (14.0-18.0)
[2023-06-28 06:50] LABS: Alanine Aminotransferase 16 U/L (6-50); Albumin Level 2.5 g/dL (3.5-5.1); Alkaline Phosphatase 82 U/L (38-126); Anion Gap 4 mmol/L (8-16); Aspartate Amino Transferase 20 U/L (17-59); Bilirubin,Total 0.3 mg/dL (0.2-1.3); Blood Urea Nitrogen 7 mg/dL (9-20); Calcium 7.6 mg/dL (8.4-10.2); Carbon Dioxide 23 mmol/L (22-30); Chloride 117 mmol/L (98-107); Estimated CRCL calculation 181 ml/min; Estimated Glomerular Filt Rate > 60; Glucose 110 mg/dL (65-110); Magnesium 1.8 mg/dL (1.6-2.3); Phosphorus 2.4 mg/dL (2.5-4.5); Potassium 3.7 mmol/L (3.4-5.0); Sodium 144 mmol/L (137-145)
[2023-06-28 07:27] LABS: Glucose Point of Care 115 mg/dl (65-105)
[2023-06-28 08:23] LABS: SM Antibody <1.0; SM/RNP Antibody <1.0
--- NOTE | 2023-06-28 08:28 | PCPTNOTE ---
Attempted PT evaluation, patient refused. Will follow.
[2023-06-28] MEDS: MAGNESIUM SULF 2 GM/WATER 50ML 2 GM/50 ML BAG IVPB (08:29)
[2023-06-28] MEDS: CYANOCOBALAMIN 1,000 MCG TABLET 1000 MCG FEED TUBE (08:30)
[2023-06-28] MEDS: MEGESTROL ACETATE (*CHEMO) ORAL SUSP 40 MG/ML SYR 400 MG FEED TUBE ×2 (08:30→16:26)
[2023-06-28] MEDS: METOPROLOL TARTRATE 12.5 MG TABLET FEED TUBE ×2 (08:30→22:55)
[2023-06-28] MEDS: POTASSIUM CHLORIDE 20 MEQ PACKET (FOR LIQUID) 40 MEQ FEED TUBE (08:30)
[2023-06-28] MEDS: FOLIC ACID 1 MG TABLET FEED TUBE (08:30)
[2023-06-28] MEDS: THIAMINE HCL 100 MG TABLET FEED TUBE (08:31)
[2023-06-28] MEDS: PANTOPRAZOLE SODIUM IV 40 MG VIAL IV PUSH (08:31)
[2023-06-28] MEDS: DULoxetine HCL 60 MG CAPSULE.DR PO (08:31)
[2023-06-28] MEDS: FERROUS SULFATE 325 MG TABLET DR BY MOUTH (08:31)
[2023-06-28] MEDS: ATORVASTATIN 40 MG TABLET FEED TUBE (08:31)
[2023-06-28] MEDS: CLOPIDOGREL BISULFATE 75 MG TABLET FEED TUBE (08:31)
[2023-06-28] MEDS: TUBING, BLOOD PLUM PUMP TUBING 1 EACH XX (08:32)
[2023-06-28] MEDS: SODIUM CHLORIDE 0.9% IV 250 ML 30 ML IV CONT (08:32)
[2023-06-28] MEDS: POTASSIUM/PHOSPHORUS/SODIUM 1.5 GM PACKET 1 PACKET FEED TUBE (08:32)
--- NOTE | 2023-06-28 10:16 | PM.IMPN ---
Progress Note: A&P Assessment and Plan (1) AMS (altered mental status): Code(s): R41.82 - Altered mental status, unspecified Status: Acute Assessment and Plan: Patient with hx of CVA and left sided weakness. He has garbled speech and is difficult to understand. CT of the head shows prominent central and cortical cerebral and cerebellar atrophy greater than expected for age. He also has chronic bilateral occipital infarcts left greater than right and chronic left cerebellar hemispheric infarcts and chronic left basilar ganglia lacunar infarcts but no change since March. Ammonia level negative. TSH normal. B12/foalte normal in March. Some of the altered mental status findings may be related to electrolyte abnormalities and/or alcoholism and/or chronic neurologic changes. Having dysphagia so NGT placed after speaking with sister. Appreciate Neurology input. Check brain MRI. (2) Dysphagia: Code(s): R13.10 - Dysphagia, unspecified Status: Acute Assessment and Plan: Discussed options with [id number]. NG tube placed and started on tube feedings. No clinical improvement thus far. Suspect patient will need long-term G-tube given the history that he has chronic poor oral intake. [id number]-gg-[id number] will be back in town on Saturday and will most likely make a decision at that point about proceeding with Gtube versus hospice. Continue tube feedings. (3) Chronic anemia: Code(s): D64.9 - Anemia, unspecified Status: Acute Assessment and Plan: Hgb 8-9 range and this appears to be chronic. Hgb dropped to 7.5 yesterday and now 6.9. Could be occult blood loss. Could be from the IV fluids. Also on albumin which might be pulling fluid in from soft tissues. Iron, B12, guaiac ordered. Check CT A/p given the abd pain. Transfuse one unit. Follow. (4) Protein calorie malnutrition: Code(s): E46 - Unspecified protein-calorie malnutrition Status: Acute Assessment and Plan: Patient with chronic hypoalbuminemia. UA showing 2+ proteinuria on admission but felt related to UTI. He does not have persistent proteinuria and prot/Cr ratio 0.18. Suspect low albumin related to poor oral intake. No evidence cirrhosis on prior imaging. IV albumin started. NG tube placed and tube feeding started. Dietary following. Continue to monitor. (5) Alcohol use disorder: Code(s): F10.90 - Alcohol use, unspecified, uncomplicated Status: Acute Assessment and Plan: Patient with known alcohol use disorder. Patient on thiamine and folate. CIWA score around 4. Was on Librium 25 mg t.i.d. but weaned down. Now Librium weaned off. (6) Hypoglycemia: Code(s): E16.2 - Hypoglycemia, unspecified Status: Acute Assessment and Plan: Patient had hypoglycemia. He was started on dextrose with IV fluids. Glucose better controlled. Suspect this is related to hepatic insufficiency. TF started. will stop IV fluids. Continue to follow (7) Hypokalemia: Code(s): E87.6 - Hypokalemia Status: Acute Assessment and Plan: Potassium level <2 on admission. Potassium better now. Extra mag and potassium today. Follow. (8) Hyponatremia: Code(s): E87.1 - Hypo-osmolality and hyponatremia Status: Chronic Assessment and Plan: Na 124 on admission. He is on NaCl tabs on admission but not sure he was taking these. Na climbed to 132 in 18 hours and now back to normal. Na level up to 149. NaCl tabs have been stopped. Continue to monitor. (9) UTI (urinary tract infection): Code(s): N39.0 - Urinary tract infection, site not specified Status: Acute Assessment and Plan: UA consistent with UTI. UCx growing ESBL Ecoli. BCx NGTD. Continue Ertapenem for 7 days. (10) LUIS (acute kidney injury): Code(s): N17.9 - Acute kidney failure, unspecified Status: Acute Assessment and Plan: Patient presents with acute kidn
--- NOTE | 2023-06-28 11:31 | PCNFU ---
Nutrition Follow-Up Complete: Underweight related to alcohol abuse/variable appetite and intake as evidenced by BMI of 19.4 kg/m2. 1. Intake of 75-100% x 2-3 meals & supplement/day x 2-3 days per review of EHR on follow-up. 2. Weight to remain within 2% of admission weight (65 kg) through follow-up. Patient is progressing towards goal. Pt current nutrition is Glucerna 1.2 at 75 ml/hr . Last recorded weight is 80 kg. Bowel Motility: +BM reported 06/28. Labs Reviewed:Cr 0.4,BUN 7, Alb 2.5,Hct 21.5, BUN 7 Meds Noted: Colace, Zofran, Thiamine, Megace, Folic Acid, B12, Ferrous Sulfate. Skin: WNL Additional Notes: Patient is meeting tube feeding goal at 75 ml/hr of Glucerna 1.2. Tube feedings providing 1980 kcals/99 gms protein/1325 ml water. Meeting 100% kcal needs at 25 kcal/kg and 100% protein needs at 1.2-1.4 gm/kg. Flush 30 ml q 4 hours. Agree with diet orders. Awaiting for decision in regards to PEG. Monitor weight,labs, tube feeding tolerance, skin every Saturday and Saturday.
[2023-06-28 13:09] LABS: Strep DNASE B Antibody 128 U/mL (<301)
--- NOTE | 2023-06-28 13:16 | PCOTNOTE ---
Attempted OT eval at 13:16, patient refused and unable to arouse. Will follow.
[2023-06-28 13:22] LABS: ANCA Screen Negative (Negative)
--- NOTE | 2023-06-28 13:59 | P.CDI_ITS ---
CDI Query Clarification Request Documented history of CHF. CHF noted in the assessment and plan. Lasix listed as a home medication. Elevated BNP on 06/20/23 lab work. Please specify type and acuity of heart failure if known. * Acute * Chronic * Acute on Chronic * Unknown * Systolic * Diastolic * Combined Systolic and Diastolic * Unknown
--- NOTE | 2023-06-28 13:59 | WPDCDIQUERY2 ---
CDI Query Clarification Request Documented history of CHF. CHF noted in the assessment and plan. Lasix listed as a home medication. Elevated BNP on 06/20/23 lab work. Please specify type and acuity of heart failure if known. Acute Chronic Acute on Chronic Unknown Systolic Diastolic Combined Systolic and Diastolic Unknown
[2023-06-28 15:29] LABS: IFOB Positive Control Positive; Immunochemical Fecal Occult Bl Negative (N)
[2023-06-28 15:36] LABS: Folic Acid 14.2 ng/mL (2.76->20)
[2023-06-28] MEDS: ERTAPENEM 1 GM/NS 50 ML 1 GM/50 ML BAG IVPB (16:14)
[2023-06-28 18:07] LABS: Basophils Percent Auto 0.3 % (0.2-1.2); Eosinophils Percent Auto 0.2 % (0-4.4); Hematocrit 24.7 % (42.0-52.0); Hemoglobin 7.8 g/dL (14.0-18.0); Immature Granulocyte Absolute 0.12 K/mm3 (0.00-0.031); Immature Granulocyte Percent A 1.1 % (0-0.5); Lymphocytes Absolute Auto 1.69 K/mm3 (0.9-3.2); Lymphocytes Percent Auto 15.3 % (18.3-44.2); Mean Corpuscular HGB Conc 31.6 g/dl (32-36); Mean Corpuscular Hemoglobin 32.8 pg (26-34); Mean Corpuscular Volume 103.8 fl (80-100); Monocytes Absolute Auto 1.1 K/mm3 (0.1-0.6); Monocytes Percent Auto 9.5 % (2.6-8.5); Neutrophils Absolute Auto 8.1 K/mm3 (1.3-6.7); Neutrophils Percent Auto 73.6 % (45.5-73.1); Nucleated Red Blood Cells Absolute Auto 0.3 K/mm3 (0.0-0.012); Nucleated Red Blood Cells Perc 2.4 % (0.0-0.2); Platelet Count Result 150 k/mm3 (150-375); Red Blood Count 2.38 M/mm3 (4.6-6.20); Red Cell Distribution Width 17.8 % (11.5-14.5)
[2023-06-28 18:23] LABS: Lactic Acid Reflex 1.1 mmol/L (0.7-2.0)
[2023-06-28] MEDS: FUROSEMIDE INJ 40 MG/4 ML VIAL 20 MG IV PUSH (18:30)
[2023-06-28 18:43] LABS: Iron 12 ug/dL (49-181)
[2023-06-28 18:44] LABS: Albumin Level 2.9 g/dL (3.5-5.1); Anion Gap 6 mmol/L (8-16); Blood Urea Nitrogen 8 mg/dL (9-20); Calcium 8.1 mg/dL (8.4-10.2); Carbon Dioxide 21 mmol/L (22-30); Chloride 117 mmol/L (98-107); Estimated CRCL calculation 181 ml/min; Estimated Glomerular Filt Rate > 60; Glucose 102 mg/dL (65-110); Magnesium 2.1 mg/dL (1.6-2.3); Phosphorus 2.9 mg/dL (2.5-4.5); Potassium 4.2 mmol/L (3.4-5.0); Sodium 144 mmol/L (137-145)
[2023-06-28 18:46] LABS: Procalcitonin 0.6 ng/mL
[2023-06-28 18:48] LABS: Alanine Aminotransferase 15 U/L (6-50); Albumin Level 2.9 g/dL (3.5-5.1); Alkaline Phosphatase 84 U/L (38-126); Anion Gap 7 mmol/L (8-16); Aspartate Amino Transferase 22 U/L (17-59); Bilirubin,Total 0.5 mg/dL (0.2-1.3); Blood Urea Nitrogen 7 mg/dL (9-20); Calcium 8.1 mg/dL (8.4-10.2); Carbon Dioxide 21 mmol/L (22-30); Chloride 116 mmol/L (98-107); Estimated CRCL calculation 181 ml/min; Estimated Glomerular Filt Rate > 60; Glucose 101 mg/dL (65-110); Potassium 4.2 mmol/L (3.4-5.0); Sodium 144 mmol/L (137-145)
[2023-06-28 18:53] LABS: Percent Iron Saturation 11 % (20-50)
[2023-06-28 18:58] LABS: CRP 13.2 mg/dL (<1.0)
[2023-06-28 20:04] LABS: Creatinine Urine 21.7 mg/dL; Total Protein Urine Random 33 mg/dL; Ur Ttl Prot Creatinine Ratio 1.52 mg/mg (0-0.20)
--- NOTE | 2023-06-28 20:12 | PC.NURSE ---
Dr Mittal notified of 600ml output post lasix admin. Provider will reassess in AM.
[2023-06-28] MEDS: GABAPENTIN 300 MG CAPSULE FEED TUBE (22:56)
[2023-06-29] VITALS (16 sets, daily range): BP systolic 101–108; BP diastolic 72–84; PULSE 100–112; RESP 16–30; TEMP 36.3–36.6; O2SAT 91–99
[2023-06-29] MEDS: ALBUTEROL SULFATE NEB 2.5 MG/3 ML INH INHALATION ×2 (01:52→02:13)
[2023-06-29] MEDS: IPRATROPIUM BR 0.02% INH SOLN 0.5 MG/2.5 ML VIAL INHALATION ×2 (01:58→02:13)
[2023-06-29] MEDS: FUROSEMIDE INJ 40 MG/4 ML VIAL 20 MG IV PUSH ×2 (02:11→08:24)
[2023-06-29] MEDS: diphenhydrAMINE HCl INJ 50 MG/ML VIAL 12.5 MG IV PUSH (02:11)
[2023-06-29] MEDS: methylPREDNISolone SOD SUCC 125 MG VIAL IV PUSH (02:13)
[2023-06-29 02:25] LABS: Alanine Aminotransferase 14 U/L (6-50); Albumin Level 3.1 g/dL (3.5-5.1); Alkaline Phosphatase 81 U/L (38-126); Anion Gap 5 mmol/L (8-16); Aspartate Amino Transferase 18 U/L (17-59); Bilirubin,Total 0.7 mg/dL (0.2-1.3); Blood Urea Nitrogen 7 mg/dL (9-20); Calcium 8.1 mg/dL (8.4-10.2); Carbon Dioxide 21 mmol/L (22-30); Chloride 115 mmol/L (98-107); Estimated CRCL calculation 181 ml/min; Estimated Glomerular Filt Rate > 60; Glucose 110 mg/dL (65-110); Phosphorus 3.1 mg/dL (2.5-4.5); Sodium 141 mmol/L (137-145)
[2023-06-29 02:33] LABS: Basophils Absolute Auto 0.1 K/mm3 (0.0-0.1); Basophils Percent Auto 0.5 % (0.2-1.2); Eosinophils Percent Auto 0.2 % (0-4.4); Hemoglobin 8.2 g/dL (14.0-18.0); Immature Granulocyte Absolute 0.12 K/mm3 (0.00-0.031); Lymphocytes Absolute Auto 1.37 K/mm3 (0.9-3.2); Lymphocytes Percent Auto 11.9 % (18.3-44.2); Mean Corpuscular HGB Conc 32.8 g/dl (32-36); Mean Corpuscular Hemoglobin 33.6 pg (26-34); Mean Corpuscular Volume 102.5 fl (80-100); Mean Platelet Volume 10.7 fl (7.4-10.4); Monocytes Absolute Auto 0.7 K/mm3 (0.1-0.6); Monocytes Percent Auto 6.4 % (2.6-8.5); Neutrophils Absolute Auto 9.2 K/mm3 (1.3-6.7); Nucleated Red Blood Cells Absolute Auto 0.3 K/mm3 (0.0-0.012); Nucleated Red Blood Cells Perc 2.3 % (0.0-0.2); Platelet Count Result 156 k/mm3 (150-375); Red Blood Count 2.44 M/mm3 (4.6-6.20); White Blood Count 11.5 K/mm3 (4.5-10.0)
--- NOTE | 2023-06-29 02:57 | P.PNCROSS_ITS ---
Event Note Event Note Event Note: I was called to see this patient who had contrast study yesterday and subsequen tly broke out in rash and also became tachyneic more than before. Examination showed diffuse maculopapular erythematous blanchable patchy rashes all over, no tongue or lip swelling, also has bilateral expiratory wheezes. he is tachypneic and tachycardic but said to be his baseline. Ass: Allergic reaction to contrast Dye, possible aspiration Plan: Solumedrol 125 mg IV once, benadryl 12.5 mg IV once, IV furosemide 20 mg Once, Duoneb NEB q20 minutes x 2. CBC, CMP, CXR. Reviewed labs and there is no significant change from his baseline. Continue ertapenem. Call for elaine concern
--- NOTE | 2023-06-29 02:58 | PC.NURSE ---
Dr Azul notified pt becoming increasingly tachypneic and has new onset systemic erythema that has been rapidly spreading. Provider assessed patient at bedside and orders were received. Will notify provider of any further decline in patient status.
[2023-06-29] MEDS: DEXTROSE 5% 1,000 ML 1,000 ML 70 ML IV CONT (03:40)
--- NOTE | 2023-06-29 04:29 | PC.NURSE ---
Dr Azul notified pt residual 475ml, order received to hold tube feed and initiate D5%
[2023-06-29 04:55] LABS: Glucose Point of Care 111 mg/dl (65-105)
[2023-06-29 04:56] LABS: Glucose Point of Care 105 mg/dl (65-105)
[2023-06-29 05:37] LABS: Glucose Point of Care 148 mg/dl (65-105)
[2023-06-29] MEDS: ALBUMIN HUMAN 25% 25 GM/100 ML 100 ML IVPB ×2 (06:04→11:39)
[2023-06-29] MEDS: CENTRAL LINE FLUSH 10 ML IV PUSH ×3 (06:04→21:11)
[2023-06-29] MEDS: VANCOMYCIN ORAL 125 MG/2.5 ML SYRUP FEED TUBE ×3 (06:05→17:05)
[2023-06-29] MEDS: LEVOTHYROXINE SODIUM 25 MCG TABLET FEED TUBE (06:05)
--- NOTE | 2023-06-29 08:12 | PM.IMPN ---
Progress Note: A&P Assessment and Plan (1) Respiratory distress, acute: Code(s): R06.03 - Acute respiratory distress Status: Acute Assessment and Plan: If developed respiratory distress after his CT A/P. CXR showing pulmonary edema and improved with Lasix. Events overnight noted with rash so concern for contrast allergy. He was given Solu-Medrol and Benadryl. The benadryl may make him more obtunded today. Good UOP with Lasix. Consider also aspiration since TF stopped just before he went down for the scan. He is on abx still. Hypoxia is mild so will add Flagyl and follow. Stop IV fluids. Elevated HOB. Resume tube feedings. Hold metoprolol and give lasix IV prn as blood pressure allows. (2) AMS (altered mental status): Code(s): R41.82 - Altered mental status, unspecified Status: Acute Assessment and Plan: Patient with hx of CVA and left sided weakness. He has garbled speech and is difficult to understand. CT of the head shows prominent central and cortical cerebral and cerebellar atrophy greater than expected for age with evidence of old CVAs. Ammonia level negative. TSH normal. B12/folate normal in March. Brain MR showing old infarcts but no acute findings. Some of the altered mental status findings may be related to electrolyte abnormalities and/or alcoholism and/or chronic neurologic changes. Having dysphagia so NGT placed after speaking with sister. Neurology felt related to chronic alcoholism; appreciate Neurology input. If he becomes more awake/alert, have speech therapy re-evaluate. If not, then either GTube or hospice. (3) Dysphagia: Code(s): R13.10 - Dysphagia, unspecified Status: Acute Assessment and Plan: Discussed options with [id number]. NG tube placed and started on tube feedings. No clinical improvement thus far. Suspect patient will need long-term G-tube given the history that he has chronic poor oral intake. Kgvzv-zp-ancsbgxm will be back in town on Saturday and will most likely make a decision at that point about proceeding with Gtube versus hospice. Resume tube feedings. (4) Chronic anemia: Code(s): D64.9 - Anemia, unspecified Status: Acute Assessment and Plan: Hgb 8-9 range and this appears to be chronic. Hgb dropped yesterday to 6.9. Could be occult blood loss. Could be from the IV fluids. Also on albumin which might be pulling fluid in from soft tissues. Iron studies consistent with anemia of chronic disease. B12 and folate levels normal. Stool guaiac ordered. CT A/P showing dependent airspace disease and diffuse wall thickening consistent with colitis. He was transfused one unit and Hgb back up to 8 range. Follow. (5) Protein calorie malnutrition: Code(s): E46 - Unspecified protein-calorie malnutrition Status: Acute Assessment and Plan: Patient with chronic hypoalbuminemia. UA showing 2+ proteinuria on admission but felt related to UTI. He does not have persistent proteinuria and prot/Cr ratio 0.18. Suspect low albumin related to poor oral intake. No evidence cirrhosis on prior imaging. IV albumin was started. NG tube placed and tube feeding started. Dietary following. Continue to monitor. Stop albumin once pulm edema better and BP stable. (6) Alcohol use disorder: Code(s): F10.90 - Alcohol use, unspecified, uncomplicated Status: Acute Assessment and Plan: Patient with known alcohol use disorder. Patient on thiamine and folate. He was monitored with CIWA protocol. Was on Librium 25 mg t.i.d. but weaned off. Follow (7) Hypoglycemia: Code(s): E16.2 - Hypoglycemia, unspecified Status: Acute Assessment and Plan: Patient had hypoglycemia. He was started on dextrose with IV fluids. Glucose better controlled. Suspect this is related to hepatic insufficiency. TF started. will stop IV fluids. Continue to follow (8) Hypokalemia: Code(s): E87.6 - Hypokalemia
[2023-06-29 08:30] LABS: Glucose Point of Care 151 mg/dl (65-105)
[2023-06-29] MEDS: MEGESTROL ACETATE (*CHEMO) ORAL SUSP 40 MG/ML SYR 400 MG FEED TUBE (09:19)
[2023-06-29] MEDS: DULoxetine HCL 60 MG CAPSULE.DR PO (09:19)
[2023-06-29] MEDS: FERROUS SULFATE 325 MG TABLET DR BY MOUTH (09:19)
[2023-06-29] MEDS: FOLIC ACID 1 MG TABLET FEED TUBE (09:19)
[2023-06-29] MEDS: METOPROLOL TARTRATE 12.5 MG TABLET FEED TUBE (09:19)
[2023-06-29] MEDS: CLOPIDOGREL BISULFATE 75 MG TABLET FEED TUBE (09:19)
[2023-06-29] MEDS: ATORVASTATIN 40 MG TABLET FEED TUBE (09:19)
[2023-06-29] MEDS: PANTOPRAZOLE SODIUM IV 40 MG VIAL IV PUSH (09:19)
[2023-06-29] MEDS: THIAMINE HCL 100 MG TABLET FEED TUBE (09:19)
[2023-06-29] MEDS: CYANOCOBALAMIN 1,000 MCG TABLET 1000 MCG FEED TUBE (09:23)
--- NOTE | 2023-06-29 10:00 | PCOTNOTE ---
Attempted OT evaluation this am; per RN pt. not doing well today and requests to hold all therapy today. Will continue to follow.
--- NOTE | 2023-06-29 11:02 | PCPTNOTE ---
per Azucena Jacobsen RN, patient is on hold today will attempt again tomorrow.
[2023-06-29 11:34] LABS: Alveolar/Arterial O2 Gradient 168.5 mmHg; Base Excess ABG -1.7 mEq/l (+/-2.0); Fractional Inspired Oxygen 36 %; HCO3 ABG 21.9 mEq/l (22.0-26.0); Oxygen Content ABG 11.1 %vol (16.0-22.0); PCO2 ABG 32.7 mmHg (35.0-45.0); PO2 ABG 50.3 mmHg (80.0-100.0); Total Hemoglobin 9.6 g/dL (12.0-18.0); pH ABG 7.444 (7.350-7.450)
[2023-06-29 11:38] LABS: Modified Allen's Test Pass; Oxygen Saturation ABG 87.6 % (95.0-100.0); Oxyhemoglobin 82.1 % THb (90.0-100.0); Site Drawn RIGHT RADIAL
[2023-06-29 11:40] LABS: Device NASAL CANNULA
[2023-06-29 11:59] LABS: Glucose Point of Care 143 mg/dl (65-105)
[2023-06-29 13:12] LABS: Anti Glomerular Basement Memb <1.0 AI (<1.0)
[2023-06-29] MEDS: metroNIDAZOLE 500 MG/ISO 100ML 500 MG/100 ML BAG 100 MG IVPB ×2 (14:36→21:16)
[2023-06-29] MEDS: ERTAPENEM 1 GM/NS 50 ML 1 GM/50 ML BAG IVPB (16:58)
[2023-06-29 17:09] LABS: Glucose Point of Care 152 mg/dl (65-105)
[2023-06-29] MEDS: GABAPENTIN 300 MG CAPSULE FEED TUBE (21:10)
[2023-06-29 23:20] LABS: Glucose Point of Care 143 mg/dl (65-105)
[2023-06-30] VITALS (11 sets, daily range): BP systolic 102–108; BP diastolic 71–76; PULSE 101–114; RESP 15–22; TEMP 36.4–36.7; O2SAT 97–99
[2023-06-30] MEDS: VANCOMYCIN ORAL 125 MG/2.5 ML SYRUP FEED TUBE ×4 (00:33→17:12)
[2023-06-30] MEDS: CENTRAL LINE FLUSH 10 ML IV PUSH ×3 (05:59→21:35)
[2023-06-30] MEDS: metroNIDAZOLE 500 MG/ISO 100ML 500 MG/100 ML BAG 100 MG IVPB ×3 (05:59→21:35)
[2023-06-30] MEDS: LEVOTHYROXINE SODIUM 25 MCG TABLET FEED TUBE (05:59)
[2023-06-30 06:35] LABS: Basophils Percent Auto 0.1 % (0.2-1.2); Hematocrit 26.4 % (42.0-52.0); Hemoglobin 8.6 g/dL (14.0-18.0); Immature Granulocyte Absolute 0.18 K/mm3 (0.00-0.031); Lymphocytes Absolute Auto 1.16 K/mm3 (0.9-3.2); Lymphocytes Percent Auto 6.5 % (18.3-44.2); Mean Corpuscular HGB Conc 32.6 g/dl (32-36); Mean Corpuscular Hemoglobin 33.1 pg (26-34); Mean Corpuscular Volume 101.5 fl (80-100); Mean Platelet Volume 10.4 fl (7.4-10.4); Monocytes Absolute Auto 1.1 K/mm3 (0.1-0.6); Monocytes Percent Auto 6.1 % (2.6-8.5); Neutrophils Absolute Auto 15.4 K/mm3 (1.3-6.7); Neutrophils Percent Auto 86.3 % (45.5-73.1); Nucleated Red Blood Cells Absolute Auto 0.1 K/mm3 (0.0-0.012); Nucleated Red Blood Cells Perc 0.3 % (0.0-0.2); Platelet Count Result 203 k/mm3 (150-375); Red Cell Distribution Width 17.7 % (11.5-14.5); White Blood Count 17.9 K/mm3 (4.5-10.0)
[2023-06-30 06:38] LABS: Glucose Point of Care 111 mg/dl (65-105)
[2023-06-30 06:44] LABS: Alanine Aminotransferase 13 U/L (6-50); Albumin Level 2.8 g/dL (3.5-5.1); Alkaline Phosphatase 72 U/L (38-126); Anion Gap 2 mmol/L (8-16); Aspartate Amino Transferase 19 U/L (17-59); Bilirubin,Total 0.4 mg/dL (0.2-1.3); Blood Urea Nitrogen 12 mg/dL (9-20); Calcium 8.2 mg/dL (8.4-10.2); Carbon Dioxide 27 mmol/L (22-30); Chloride 113 mmol/L (98-107); Estimated CRCL calculation 149 ml/min; Estimated Glomerular Filt Rate > 60; Glucose 128 mg/dL (65-110); Magnesium 1.9 mg/dL (1.6-2.3); Phosphorus 3.2 mg/dL (2.5-4.5); Potassium 3.6 mmol/L (3.4-5.0); Sodium 142 mmol/L (137-145)
[2023-06-30] MEDS: CYANOCOBALAMIN 1,000 MCG TABLET 1000 MCG FEED TUBE (08:38)
[2023-06-30] MEDS: PANTOPRAZOLE SODIUM IV 40 MG VIAL IV PUSH (08:38)
[2023-06-30] MEDS: FOLIC ACID 1 MG TABLET FEED TUBE (08:39)
[2023-06-30] MEDS: ATORVASTATIN 40 MG TABLET FEED TUBE (08:39)
[2023-06-30] MEDS: THIAMINE HCL 100 MG TABLET FEED TUBE (08:39)
[2023-06-30] MEDS: CLOPIDOGREL BISULFATE 75 MG TABLET FEED TUBE (08:39)
[2023-06-30] MEDS: DULoxetine HCL 60 MG CAPSULE.DR PO (08:39)
[2023-06-30] MEDS: FERROUS SULFATE 325 MG TABLET DR BY MOUTH (08:39)
--- NOTE | 2023-06-30 12:02 | PCPTNOTE ---
Per Azucena Jacobsen RN, patient is still on hold from physical therapy and not doing well. Will attempt again tomorrow
[2023-06-30 12:06] LABS: Glucose Point of Care 122 mg/dl (65-105)
--- NOTE | 2023-06-30 13:00 | PM.IMPN ---
Progress Note: A&P Assessment and Plan (1) Respiratory distress, acute: Code(s): R06.03 - Acute respiratory distress Status: Acute Assessment and Plan: Question related to aspiration pneumonia versus volume overload. Lasix p.r.n. (2) AMS (altered mental status): Code(s): R41.82 - Altered mental status, unspecified Status: Acute Assessment and Plan: Patient with hx of CVA and left sided weakness. He has garbled speech and is difficult to understand. CT of the head shows prominent central and cortical cerebral and cerebellar atrophy greater than expected for age with evidence of old CVAs. Neurology felt related to chronic alcoholism; appreciate Neurology input. If he becomes more awake/alert, have speech therapy re-evaluate. If not, then either GTube or hospice. (3) Dysphagia: Code(s): R13.10 - Dysphagia, unspecified Status: Acute Assessment and Plan: Discussed options with [id number]-npteungm. NG tube placed and started on tube feedings. No clinical improvement thus far. Suspect patient will need long-term G-tube given the history that he has chronic poor oral intake. [id number] will be back in town on Saturday and will most likely make a decision at that point about proceeding with Gtube versus hospice. Resume tube feedings. (4) Chronic anemia: Code(s): D64.9 - Anemia, unspecified Status: Acute Assessment and Plan: Monitor (5) Protein calorie malnutrition: Code(s): E46 - Unspecified protein-calorie malnutrition Status: Acute Assessment and Plan: Patient with chronic hypoalbuminemia. UA showing 2+ proteinuria on admission but felt related to UTI. He does not have persistent proteinuria and prot/Cr ratio 0.18. Suspect low albumin related to poor oral intake. No evidence cirrhosis on prior imaging. IV albumin was started. NG tube placed and tube feeding started. Dietary following. Continue to monitor. Stop albumin once pulm edema better and BP stable. (6) Alcohol use disorder: Code(s): F10.90 - Alcohol use, unspecified, uncomplicated Status: Acute Assessment and Plan: Patient with known alcohol use disorder. Patient on thiamine and folate. He was monitored with CIWA protocol. Was on Librium 25 mg t.i.d. but weaned off. Follow (7) Hypoglycemia: Code(s): E16.2 - Hypoglycemia, unspecified Status: Acute Assessment and Plan: Patient had hypoglycemia. He was started on dextrose with IV fluids. Glucose better controlled. Suspect this is related to hepatic insufficiency. TF started. will stop IV fluids. Continue to follow (8) Hypokalemia: Code(s): E87.6 - Hypokalemia Status: Acute Assessment and Plan: Potassium level <2 on admission. Potassium normal now. Follow electrolytes and replace as needed. (9) Hyponatremia: Code(s): E87.1 - Hypo-osmolality and hyponatremia Status: Chronic Assessment and Plan: Na 124 on admission. He is on NaCl tabs on admission but not sure he was taking these. Na level was up to 149 and NaCl tabs stopped. Na stable. Continue to monitor. (10) UTI (urinary tract infection): Code(s): N39.0 - Urinary tract infection, site not specified Status: Acute Assessment and Plan: UA consistent with UTI. UCx growing ESBL Ecoli. BCx NGTD. Continue Ertapenem for 7 days. (11) C. difficile colitis: Code(s): A04.72 - Enterocolitis due to Clostridium difficile, not specified as recurrent Status: Acute Assessment and Plan: Patient with diarrhea and was CDiff toxin positive. Started on oral Vanco. Stool frequency better. Colitis noted on CT scan. Continue oral vancomycin. (12) LUIS (acute kidney injury): Code(s): N17.9 - Acute kidney failure, unspecified Status: Acute Assessment and Plan: Patient presents with acute kidney injury with creatinine of 5.6.
[2023-06-30] MEDS: FUROSEMIDE INJ 40 MG/4 ML VIAL IV PUSH (13:13)
[2023-06-30 17:05] LABS: Glucose Point of Care 110 mg/dl (65-105)
[2023-06-30] MEDS: ERTAPENEM 1 GM/NS 50 ML 1 GM/50 ML BAG IVPB (17:11)
[2023-06-30] MEDS: GABAPENTIN 300 MG CAPSULE FEED TUBE (21:35)
[2023-06-30] MEDS: ALBUTEROL SULFATE NEB 2.5 MG/3 ML INH INHALATION (22:16)
[2023-06-30] MEDS: IPRATROPIUM BR 0.02% INH SOLN 0.5 MG/2.5 ML VIAL INHALATION (22:16)
[2023-06-30 23:39] LABS: Glucose Point of Care 103 mg/dl (65-105)
[2023-07-01] VITALS (20 sets, daily range): BP systolic 105–120; BP diastolic 71–81; PULSE 80–110; RESP 16–22; TEMP 36.8; O2SAT 91–100
[2023-07-01] MEDS: VANCOMYCIN ORAL 125 MG/2.5 ML SYRUP FEED TUBE ×4 (00:56→17:03)
[2023-07-01 01:40] LABS: Creatinine, Random Urine 146 mg/dL (20-320); Total Protein/Creatinine Ratio 397 mg/g creat (25-148)
[2023-07-01] MEDS: metroNIDAZOLE 500 MG/ISO 100ML 500 MG/100 ML BAG 100 MG IVPB ×3 (05:00→21:41)
[2023-07-01] MEDS: LEVOTHYROXINE SODIUM 25 MCG TABLET FEED TUBE (05:00)
[2023-07-01 05:37] LABS: Basophils Percent Auto 0.1 % (0.2-1.2); Eosinophils Percent Auto 0.2 % (0-4.4); Hemoglobin 8.4 g/dL (14.0-18.0); Immature Granulocyte Absolute 0.13 K/mm3 (0.00-0.031); Immature Granulocyte Percent A 0.9 % (0-0.5); Lymphocytes Absolute Auto 2.16 K/mm3 (0.9-3.2); Lymphocytes Percent Auto 15.7 % (18.3-44.2); Mean Corpuscular HGB Conc 32.3 g/dl (32-36); Mean Corpuscular Hemoglobin 33.6 pg (26-34); Mean Platelet Volume 10.1 fl (7.4-10.4); Monocytes Percent Auto 7.6 % (2.6-8.5); Neutrophils Absolute Auto 10.4 K/mm3 (1.3-6.7); Neutrophils Percent Auto 75.5 % (45.5-73.1); Nucleated Red Blood Cells Perc 0.3 % (0.0-0.2); Platelet Count Result 219 k/mm3 (150-375); Red Cell Distribution Width 18.1 % (11.5-14.5); White Blood Count 13.7 K/mm3 (4.5-10.0)
[2023-07-01 05:48] LABS: Alanine Aminotransferase 12 U/L (6-50); Albumin Level 2.4 g/dL (3.5-5.1); Alkaline Phosphatase 80 U/L (38-126); Anion Gap 0 mmol/L (8-16); Aspartate Amino Transferase 16 U/L (17-59); Bilirubin,Total 0.5 mg/dL (0.2-1.3); Blood Urea Nitrogen 14 mg/dL (9-20); Calcium 7.8 mg/dL (8.4-10.2); Carbon Dioxide 32 mmol/L (22-30); Chloride 111 mmol/L (98-107); Estimated CRCL calculation 181 ml/min; Estimated Glomerular Filt Rate > 60; Glucose 92 mg/dL (65-110); Magnesium 1.8 mg/dL (1.6-2.3); Potassium 3.2 mmol/L (3.4-5.0); Sodium 143 mmol/L (137-145)
[2023-07-01 05:50] LABS: Glucose Point of Care 99 mg/dl (65-105)
[2023-07-01] MEDS: IPRATROPIUM BR 0.02% INH SOLN 0.5 MG/2.5 ML VIAL INHALATION ×3 (07:48→20:47)
[2023-07-01] MEDS: ALBUTEROL SULFATE NEB 2.5 MG/3 ML INH INHALATION ×3 (07:48→20:47)
[2023-07-01] MEDS: POTASSIUM CHLORIDE INJ 40 MEQ in SODIUM CHLORIDE 0.9% IV 500 ML 130 MEQ IVPB (08:19)
[2023-07-01] MEDS: FOLIC ACID 1 MG TABLET FEED TUBE (08:20)
[2023-07-01] MEDS: THIAMINE HCL 100 MG TABLET FEED TUBE (08:20)
[2023-07-01] MEDS: guaiFENesin 12 HR 600 MG TABCR PO ×2 (08:20→21:41)
[2023-07-01] MEDS: FERROUS SULFATE 325 MG TABLET DR BY MOUTH (08:20)
[2023-07-01] MEDS: ATORVASTATIN 40 MG TABLET FEED TUBE (08:20)
[2023-07-01] MEDS: CLOPIDOGREL BISULFATE 75 MG TABLET FEED TUBE (08:20)
[2023-07-01] MEDS: CYANOCOBALAMIN 1,000 MCG TABLET 1000 MCG FEED TUBE (08:20)
[2023-07-01] MEDS: PANTOPRAZOLE SODIUM IV 40 MG VIAL IV PUSH (08:20)
[2023-07-01] MEDS: DULoxetine HCL 60 MG CAPSULE.DR PO (08:20)
--- NOTE | 2023-07-01 10:48 | P.PNIM_ITS ---
Progress Note: A&P Assessment and Plan (1) Respiratory distress, acute: Code(s): R06.03 - Acute respiratory distress Status: Acute Assessment and Plan: Question related to aspiration pneumonia versus volume overload. Lasix p.r.n. (2) AMS (altered mental status): Code(s): R41.82 - Altered mental status, unspecified Status: Acute Assessment and Plan: Patient with hx of CVA and left sided weakness. He has garbled speech and is difficult to understand. CT of the head shows prominent central and cortical cerebral and cerebellar atrophy greater than expected for age with evidence of old CVAs. Neurology felt related to chronic alcoholism; appreciate Neurology input. If he becomes more awake/alert, have speech therapy re-evaluate. If not, then either GTube or hospice. (3) Dysphagia: Code(s): R13.10 - Dysphagia, unspecified Status: Acute Assessment and Plan: Discussed options with [id number]-iujbqjnj. NG tube placed and started on tube feedings. No clinical improvement thus far. Suspect patient will need long-term G-tube given the history that he has chronic poor oral intake. Fhwqs-ke-qihnybme will be back in town on Saturday and will most likely make a decision at that point about proceeding with Gtube versus hospice. Resume tube feedings. (4) Chronic anemia: Code(s): D64.9 - Anemia, unspecified Status: Acute Assessment and Plan: Monitor (5) Protein calorie malnutrition: Code(s): E46 - Unspecified protein-calorie malnutrition Status: Acute Assessment and Plan: Patient with chronic hypoalbuminemia. UA showing 2+ proteinuria on admission but felt related to UTI. He does not have persistent proteinuria and prot/Cr ratio 0.18. Suspect low albumin related to poor oral intake. No evidence cirrhosis on prior imaging. IV albumin was started. NG tube placed and tube feeding st arted. Dietary following. Continue to monitor. Stop albumin once pulm edema better and BP stable. (6) Alcohol use disorder: Code(s): F10.90 - Alcohol use, unspecified, uncomplicated Status: Acute Assessment and Plan: Patient with known alcohol use disorder. Patient on thiamine and folate. He was monitored with CIWA protocol. Was on Librium 25 mg t.i.d. but weaned off. Follow (7) Hypoglycemia: Code(s): E16.2 - Hypoglycemia, unspecified Status: Acute Assessment and Plan: Patient had hypoglycemia. He was started on dextrose with IV fluids. Glucose better controlled. Suspect this is related to hepatic insufficiency. TF started. will stop IV fluids. Continue to follow (8) Hypokalemia: Code(s): E87.6 - Hypokalemia Status: Acute Assessment and Plan: Potassium level <2 on admission. Potassium normal now. Follow electrolytes and replace as needed. (9) Hyponatremia: Code(s): E87.1 - Hypo-osmolality and hyponatremia Status: Chronic Assessment and Plan: Na 124 on admission. He is on NaCl tabs on admission but not sure he was taking these. Na level was up to 149 and NaCl tabs stopped. Na stable. Continue to monitor. (10) UTI (urinary tract infection): Code(s): N39.0 - Urinary tract infection, site not specified Status: Acute Assessment and Plan: UA consistent with UTI. UCx growing ESBL Ecoli. BCx NGTD. Continue Ertapenem for 7 days. (11) C. difficile colitis: Code(s): A04.72 - Enterocolitis due to Clostridium difficile, not specified as recurrent
[2023-07-01 11:57] LABS: Glucose Point of Care 89 mg/dl (65-105)
--- NOTE | 2023-07-01 13:08 | PCPTNOTE ---
Pt is not medically appropriate to participate in skilled therapy at this time. Hospitalist made aware and agreed to DC of therapy orders at this time. Please re-order PT when pt is able to participate.
[2023-07-01] MEDS: CENTRAL LINE FLUSH 10 ML IV PUSH ×2 (13:27→21:41)
[2023-07-01 13:34] LABS: Potassium 3.8 mmol/L (3.4-5.0)
[2023-07-01 21:10] LABS: Glucose Point of Care 108 mg/dl (65-105)
[2023-07-01] MEDS: GABAPENTIN 300 MG CAPSULE FEED TUBE (21:41)
[2023-07-02] VITALS (18 sets, daily range): BP systolic 108–116; BP diastolic 64–78; PULSE 101–110; RESP 16–20; TEMP 36.8–36.9; O2SAT 93–95; BMI 23.4
[2023-07-02] MEDS: ALBUTEROL SULFATE NEB 2.5 MG/3 ML INH INHALATION ×4 (02:32→20:16)
[2023-07-02] MEDS: IPRATROPIUM BR 0.02% INH SOLN 0.5 MG/2.5 ML VIAL INHALATION ×4 (02:32→20:16)
[2023-07-02 03:06] LABS: Glucose Point of Care 103 mg/dl (65-105)
[2023-07-02] MEDS: LEVOTHYROXINE SODIUM 25 MCG TABLET FEED TUBE (05:22)
[2023-07-02] MEDS: CENTRAL LINE FLUSH 10 ML IV PUSH ×3 (05:22→22:15)
[2023-07-02] MEDS: metroNIDAZOLE 500 MG/ISO 100ML 500 MG/100 ML BAG 100 MG IVPB ×3 (05:22→22:14)
[2023-07-02 05:32] LABS: Glucose Point of Care 111 mg/dl (65-105)
[2023-07-02 05:58] LABS: Basophils Percent Auto 0.3 % (0.2-1.2); Eosinophils Absolute Auto 0.1 K/mm3 (0-0.3); Eosinophils Percent Auto 0.9 % (0-4.4); Hematocrit 26.1 % (42.0-52.0); Hemoglobin 8.4 g/dL (14.0-18.0); Immature Granulocyte Absolute 0.07 K/mm3 (0.00-0.031); Immature Granulocyte Percent A 0.6 % (0-0.5); Lymphocytes Absolute Auto 2.33 K/mm3 (0.9-3.2); Lymphocytes Percent Auto 19.7 % (18.3-44.2); Mean Corpuscular HGB Conc 32.2 g/dl (32-36); Mean Corpuscular Hemoglobin 33.7 pg (26-34); Mean Corpuscular Volume 104.8 fl (80-100); Monocytes Absolute Auto 0.9 K/mm3 (0.1-0.6); Monocytes Percent Auto 7.2 % (2.6-8.5); Neutrophils Absolute Auto 8.5 K/mm3 (1.3-6.7); Neutrophils Percent Auto 71.3 % (45.5-73.1); Nucleated Red Blood Cells Perc 0.3 % (0.0-0.2); Platelet Count Result 208 k/mm3 (150-375); Red Blood Count 2.49 M/mm3 (4.6-6.20); Red Cell Distribution Width 18.6 % (11.5-14.5); White Blood Count 11.9 K/mm3 (4.5-10.0)
[2023-07-02 06:10] LABS: Alanine Aminotransferase 12 U/L (6-50); Albumin Level 2.4 g/dL (3.5-5.1); Alkaline Phosphatase 99 U/L (38-126); Anion Gap -1 mmol/L (8-16); Aspartate Amino Transferase 18 U/L (17-59); Bilirubin,Total 0.5 mg/dL (0.2-1.3); Blood Urea Nitrogen 14 mg/dL (9-20); Calcium 7.9 mg/dL (8.4-10.2); Carbon Dioxide 36 mmol/L (22-30); Chloride 112 mmol/L (98-107); Estimated CRCL calculation 181 ml/min; Estimated Glomerular Filt Rate > 60; Glucose 99 mg/dL (65-110); Magnesium 1.9 mg/dL (1.6-2.3); Phosphorus 2.8 mg/dL (2.5-4.5); Potassium 3.7 mmol/L (3.4-5.0); Sodium 147 mmol/L (137-145)
[2023-07-02] MEDS: PANTOPRAZOLE SODIUM IV 40 MG VIAL IV PUSH (09:37)
[2023-07-02] MEDS: THIAMINE HCL 100 MG TABLET FEED TUBE (09:37)
[2023-07-02] MEDS: CYANOCOBALAMIN 1,000 MCG TABLET 1000 MCG FEED TUBE (09:37)
[2023-07-02] MEDS: guaiFENesin 12 HR 600 MG TABCR PO (09:37)
[2023-07-02] MEDS: DULoxetine HCL 60 MG CAPSULE.DR PO (09:38)
[2023-07-02] MEDS: CLOPIDOGREL BISULFATE 75 MG TABLET FEED TUBE (09:38)
[2023-07-02] MEDS: ATORVASTATIN 40 MG TABLET FEED TUBE (09:38)
[2023-07-02] MEDS: FERROUS SULFATE 325 MG TABLET DR BY MOUTH (09:38)
[2023-07-02] MEDS: FOLIC ACID 1 MG TABLET FEED TUBE (09:38)
--- NOTE | 2023-07-02 11:26 | PM.IMPN ---
Progress Note: A&P Assessment and Plan (1) Respiratory distress, acute: Code(s): R06.03 - Acute respiratory distress Status: Acute Assessment and Plan: Question related to aspiration pneumonia versus volume overload. Lasix p.r.n. (2) AMS (altered mental status): Code(s): R41.82 - Altered mental status, unspecified Status: Acute Assessment and Plan: Patient with hx of CVA and left sided weakness. He has garbled speech and is difficult to understand. CT of the head shows prominent central and cortical cerebral and cerebellar atrophy greater than expected for age with evidence of old CVAs. Neurology felt related to chronic alcoholism; appreciate Neurology input. If he becomes more awake/alert, have speech therapy re-evaluate. If not, then either GTube or hospice. (3) Dysphagia: Code(s): R13.10 - Dysphagia, unspecified Status: Acute Assessment and Plan: Discussed options with [id number]-hk-hfanjlhw. NG tube placed and started on tube feedings. Some clinical improvement w mental status. Continue to monitor, might need PEG eventually. (4) Chronic anemia: Code(s): D64.9 - Anemia, unspecified Status: Acute Assessment and Plan: Monitor (5) Protein calorie malnutrition: Code(s): E46 - Unspecified protein-calorie malnutrition Status: Acute Assessment and Plan: Monitor now on TF (6) Alcohol use disorder: Code(s): F10.90 - Alcohol use, unspecified, uncomplicated Status: Acute Assessment and Plan: Patient with known alcohol use disorder. Patient on thiamine and folate. He was monitored with CIWA protocol. Was on Librium 25 mg t.i.d. but weaned off. Follow (7) Hypoglycemia: Code(s): E16.2 - Hypoglycemia, unspecified Status: Acute Assessment and Plan: Patient had hypoglycemia. He was started on dextrose with IV fluids. Glucose better controlled. Suspect this is related to hepatic insufficiency. TF started. will stop IV fluids. Continue to follow (8) Hypokalemia: Code(s): E87.6 - Hypokalemia Status: Acute Assessment and Plan: Potassium level <2 on admission. Potassium normal now. Follow electrolytes and replace as needed. (9) Hyponatremia: Code(s): E87.1 - Hypo-osmolality and hyponatremia Status: Chronic Assessment and Plan: Na 124 on admission. He is on NaCl tabs on admission but not sure he was taking these. Na level was up to 149 and NaCl tabs stopped. Na stable. Continue to monitor. (10) UTI (urinary tract infection): Code(s): N39.0 - Urinary tract infection, site not specified Status: Acute Assessment and Plan: UA consistent with UTI. UCx growing ESBL Ecoli. BCx NGTD. Continue Ertapenem for 7 days. (11) C. difficile colitis: Code(s): A04.72 - Enterocolitis due to Clostridium difficile, not specified as recurrent Status: Acute Assessment and Plan: Patient with diarrhea and was CDiff toxin positive. Started on oral Vanco. Stool frequency better. Colitis noted on CT scan. Continue oral vancomycin. (12) LUIS (acute kidney injury): Code(s): N17.9 - Acute kidney failure, unspecified Status: Acute Assessment and Plan: Patient presents with acute kidney injury with creatinine of 5.6. He has a normal baseline creatinine. With IV fluids, creatinine has normalized. Acute kidney injury has resolved. (13) Congestive heart failure: Code(s): I50.9 - Heart failure, unspecified Status: Acute Assessment and Plan: Lasix and lisinopril on hold at this time due to the LUIS. Appears euvolemic. BP soft at times. Resume when needed (14) Debility, unspecified: Code(s): R53.81 - Other malaise Status: Acute Assessment and Plan: The patient has poor oral intake. His BMI is 22. Continue dietary supplements. Encourage oral intake. Continue P
[2023-07-02 11:50] LABS: Glucose Point of Care 98 mg/dl (65-105)
--- NOTE | 2023-07-02 13:07 | P.CDI_ITS ---
sever protein calorie malnutrition CDI Query Clarification Request BMI 23.4 Nutritional Diagnostic Statement Severe Protein Calorie Malnutrition as related to inadequate protein-energy intake with increased protein energy needs in setting of chronic disease as evidenced by minimal oral intake for > 1 month and 2+ pitting edema at bilateral upper elbows, feet and upper legs. Please refer to the comprehensive nutrition assessment for further information. Please clarify severity of protein calorie malnutrition: * Mild * Moderate * Severe * Other/Unspecified
[2023-07-02 18:01] LABS: Glucose Point of Care 99 mg/dl (65-105)
[2023-07-02 21:17] LABS: Glucose Point of Care 98 mg/dl (65-105)
[2023-07-02] MEDS: GABAPENTIN 300 MG CAPSULE FEED TUBE (22:15)
[2023-07-03] VITALS (20 sets, daily range): BP systolic 103–113; BP diastolic 67–74; PULSE 93–117; RESP 16–24; TEMP 36.2–37.1; O2SAT 94–97
[2023-07-03 01:48] LABS: Glucose Point of Care 104 mg/dl (65-105)
[2023-07-03] MEDS: IPRATROPIUM BR 0.02% INH SOLN 0.5 MG/2.5 ML VIAL INHALATION ×4 (01:56→19:50)
[2023-07-03] MEDS: ALBUTEROL SULFATE NEB 2.5 MG/3 ML INH INHALATION ×4 (01:56→19:50)
[2023-07-03] MEDS: metroNIDAZOLE 500 MG/ISO 100ML 500 MG/100 ML BAG 100 MG IVPB ×3 (06:02→22:29)
[2023-07-03] MEDS: CENTRAL LINE FLUSH 10 ML IV PUSH ×3 (06:02→21:50)
[2023-07-03] MEDS: LEVOTHYROXINE SODIUM 25 MCG TABLET FEED TUBE (06:02)
[2023-07-03 06:18] LABS: Basophils Absolute Auto 0.1 K/mm3 (0.0-0.1); Basophils Percent Auto 0.6 % (0.2-1.2); Eosinophils Absolute Auto 0.3 K/mm3 (0-0.3); Eosinophils Percent Auto 2.6 % (0-4.4); Hematocrit 26.3 % (42.0-52.0); Hemoglobin 8.4 g/dL (14.0-18.0); Immature Granulocyte Absolute 0.08 K/mm3 (0.00-0.031); Immature Granulocyte Percent A 0.8 % (0-0.5); Lymphocytes Absolute Auto 2.23 K/mm3 (0.9-3.2); Lymphocytes Percent Auto 21.3 % (18.3-44.2); Mean Corpuscular HGB Conc 31.9 g/dl (32-36); Mean Corpuscular Hemoglobin 33.3 pg (26-34); Mean Corpuscular Volume 104.4 fl (80-100); Mean Platelet Volume 9.8 fl (7.4-10.4); Monocytes Absolute Auto 0.7 K/mm3 (0.1-0.6); Monocytes Percent Auto 6.6 % (2.6-8.5); Neutrophils Absolute Auto 7.1 K/mm3 (1.3-6.7); Neutrophils Percent Auto 68.1 % (45.5-73.1); Platelet Count Result 218 k/mm3 (150-375); Red Blood Count 2.52 M/mm3 (4.6-6.20); Red Cell Distribution Width 18.6 % (11.5-14.5); White Blood Count 10.5 K/mm3 (4.5-10.0)
[2023-07-03 06:24] LABS: Anion Gap 1 mmol/L (8-16); Blood Urea Nitrogen 13 mg/dL (9-20); Calcium 7.7 mg/dL (8.4-10.2); Carbon Dioxide 36 mmol/L (22-30); Chloride 111 mmol/L (98-107); Estimated CRCL calculation 180 ml/min; Estimated Glomerular Filt Rate > 60; Glucose 104 mg/dL (65-110); Potassium 3.6 mmol/L (3.4-5.0); Sodium 148 mmol/L (137-145)
[2023-07-03 06:53] LABS: Glucose Point of Care 100 mg/dl (65-105)
[2023-07-03] MEDS: THIAMINE HCL 100 MG TABLET FEED TUBE (09:20)
[2023-07-03] MEDS: FERROUS SULFATE 325 MG TABLET DR BY MOUTH (09:20)
[2023-07-03] MEDS: CYANOCOBALAMIN 1,000 MCG TABLET 1000 MCG FEED TUBE (09:20)
[2023-07-03] MEDS: FOLIC ACID 1 MG TABLET FEED TUBE (09:20)
[2023-07-03] MEDS: ATORVASTATIN 40 MG TABLET FEED TUBE (09:20)
[2023-07-03] MEDS: DULoxetine HCL 60 MG CAPSULE.DR PO (09:20)
[2023-07-03] MEDS: guaiFENesin 12 HR 600 MG TABCR PO (09:20)
[2023-07-03] MEDS: CLOPIDOGREL BISULFATE 75 MG TABLET FEED TUBE (09:20)
[2023-07-03] MEDS: PANTOPRAZOLE SODIUM IV 40 MG VIAL IV PUSH (09:20)
--- NOTE | 2023-07-03 10:43 | P.PNIM_ITS ---
Progress Note: A&P Assessment and Plan (1) Respiratory distress, acute: Code(s): R06.03 - Acute respiratory distress Status: Acute Assessment and Plan: Question related to aspiration pneumonia versus volume overload. Lasix p.r.n. (2) AMS (altered mental status): Code(s): R41.82 - Altered mental status, unspecified Status: Acute Assessment and Plan: Patient with hx of CVA and left sided weakness. He has garbled speech and is difficult to understand. CT of the head shows prominent central and cortical cerebral and cerebellar atrophy greater than expected for age with evidence of old CVAs. Neurology felt related to chronic alcoholism; appreciate Neurology input. If he becomes more awake/alert, have speech therapy re-evaluate. If not, then either GTube or hospice. (3) Dysphagia: Code(s): R13.10 - Dysphagia, unspecified Status: Acute Assessment and Plan: Discussed options with lcwgh-dw-ywnyfmop. NG tube placed and started on tube feedings. Some clinical improvement w mental status. Continue to monitor, might need PEG eventually. (4) Chronic anemia: Code(s): D64.9 - Anemia, unspecified Status: Acute Assessment and Plan: Monitor (5) Protein calorie malnutrition: Code(s): E46 - Unspecified protein-calorie malnutrition Status: Acute Assessment and Plan: Monitor now on TF Will need PEG tube (6) Alcohol use disorder: Code(s): F10.90 - Alcohol use, unspecified, uncomplicated Status: Acute Assessment and Plan: Patient with known alcohol use disorder. Patient on thiamine and folate. He was monitored with CIWA protocol. Was on Librium 25 mg t.i.d. but weaned off. Follow (7) Hypoglycemia: Code(s): E16.2 - Hypoglycemia, unspecified Status: Acute Assessment and Plan: Patient had hypoglycemia. He was started on dextrose with IV fluids. Glucose better controlled. Suspect this is related to hepatic insufficiency. TF started. will stop IV fluids. Continue to follow (8) Hypokalemia: Code(s): E87.6 - Hypokalemia Status: Acute Assessment and Plan: Potassium level <2 on admission. Potassium normal now. Follow electrolytes and replace as needed. (9) Hyponatremia: Code(s): E87.1 - Hypo-osmolality and hyponatremia Status: Chronic Assessment and Plan: Na 124 on admission. He is on NaCl tabs on admission but not sure he was taking these. Na level was up to 149 and NaCl tabs stopped. Na stable. Continue to monitor. (10) UTI (urinary tract infection): Code(s): N39.0 - Urinary tract infection, site not specified Status: Acute Assessment and Plan: UA consistent with UTI. UCx growing ESBL Ecoli. BCx NGTD. Continue Ertapenem for 7 days. (11) C. difficile colitis: Code(s): A04.72 - Enterocolitis due to Clostridium difficile, not specified as recurrent Status: Acute Assessment and Plan: Patient with diarrhea and was CDiff toxin positive. Started on oral Vanco. Stool frequency better. Colitis noted on CT scan. Continue oral vancomycin. (12) LUIS (acute kidney injury): Code(s): N17.9 - Acute kidney failure, unspecified Status: Acute Assessment and Plan: Patient presents with acute kidney injury with creatinine of 5.6. He has a normal baseline creatinine. With IV fluids, creatinine has normalized. Acute kidney injury has resolved. (13)
[2023-07-03 11:55] LABS: Glucose Point of Care 99 mg/dl (65-105)
--- NOTE | 2023-07-03 13:55 | WPDGICN ---
Assessment and Plan Assessment and plan (1) Dysphagia: Code(s): R13.10 - Dysphagia, unspecified Status: Acute Assessment and Plan: alcoholic, previous stroke, persistent encephalopathy now he has ngt in place and has been fed that way will need more permanent solution, family agreeable for peg placement- will do tomorrow and hold plavix (2) Encephalopathy: Code(s): G93.40 - Encephalopathy, unspecified Status: Acute Assessment and Plan: multifactorial on admission with hypoglycemia, malnutrition, hyponatremia, renal failure, etc treated medically and lab values improved (3) Aphasia: Code(s): R47.01 - Aphasia Status: Acute (4) Cerebrovascular accident: Code(s): I63.9 - Cerebral infarction, unspecified Status: Acute (5) Protein calorie malnutrition: Code(s): E46 - Unspecified protein-calorie malnutrition Status: Acute Assessment and Plan: on enteral nutrition peg tomorrow (6) Chronic anemia: Code(s): D64.9 - Anemia, unspecified Status: Acute Assessment and Plan: monitor (7) Hypokalemia: Code(s): E87.6 - Hypokalemia Status: Acute Assessment and Plan: treated (8) Hypoglycemia: Code(s): E16.2 - Hypoglycemia, unspecified Status: Acute Assessment and Plan: treated (9) LUSI (acute kidney injury): Code(s): N17.9 - Acute kidney failure, unspecified Status: Acute Assessment and Plan: resolved after medical management GI Consult Note Consult date/time: 07/03/23 13:55 Reason for consult: dysphagia, malnutrition, encephalopathy HPI: Simon Barraza is a 58 year old male with history of chronic alcoholism that was admitted 06/20 with progressive generalized weakness, failure to thrive and malnutrition with hypoglycemia and hyponatremia. Labs on admission H&H is 10.0 and 20.2.? Sodium 124- normal now, potassium less than 2.0- normal after treatment, creatinine 5.6- after fluids down to normal.? Lactic 8.8- down to normal.?Also treated for UTI and then pneumonia after abnormal cxr. He is on abx. He also had h/o CVA with aphasia. NGT is in place and has been fed that way. Finally primary talked to family and agreeable to place PEG tube because persistent encephalopathy (history obtained from records). Review of Systems Review of Systems: ROS unobtainable: Yes unobtainable due to mental status [facility] Past Medical History Medical History (Updated 07/03/23 @ 14:01 by Carloz Wang MD) Acute GI bleeding Acute ischemic stroke Adult failure to thrive Alcohol dependence Aphasia Cerebrovascular accident With left-sided residual weakness. Chronic anemia Chronic hyponatremia Congestive heart failure Echocardiogram on 07/17/2021 showed normal LV chamber dimension and function with an estimated EF of 65 to 70% and grade 1 diastolic dysfunction with mild pulmonary hypertension estimated pulmonary arterial systolic pressure of 37 mmHg. Conjunctivitis COVID (08/2021) DVT prophylaxis Encephalopathy Gastroesophageal reflux disease Generalized weakness HCAP (healthcare-associated pneumonia) Hypertension Hypokalemia Hypokalemia Hypothyroidism Orthostatic hypotension Pneumonia Protein calorie malnutrition Rectal bleeding Sepsis Stroke Tobacco dependence Unwitnessed fall Urinary tract infection UTI (urinary tract infection) Surgical History Surgical History History of excision of testicular mass With benign histology. Family History Family History Father Chronic obstructive pulmonary disease Congestive heart failure Hypertension Mother Abdominal aortic aneurysm rupture Daughter Type 1 diabetes mellitus Social History Social History (Updated 06/21/23 @ 00:37 by Hannah Rogers NP) Social History: [employer] [facility]
[2023-07-03 18:07] LABS: Glucose Point of Care 101 mg/dl (65-105)
[2023-07-03] MEDS: GABAPENTIN 300 MG CAPSULE FEED TUBE (21:50)
[2023-07-03] MEDS: guaiFENesin 200 MG/10 ML UDC 400 MG FEED TUBE (21:50)
[2023-07-04] VITALS (20 sets, daily range): BP systolic 108–127; BP diastolic 72–90; PULSE 78–102; RESP 16–24; TEMP 36.2–37.6; O2SAT 93–100
[2023-07-04] MEDS: IPRATROPIUM BR 0.02% INH SOLN 0.5 MG/2.5 ML VIAL INHALATION ×4 (01:50→20:24)
[2023-07-04] MEDS: ALBUTEROL SULFATE NEB 2.5 MG/3 ML INH INHALATION ×4 (01:50→20:24)
[2023-07-04 02:12] LABS: Glucose Point of Care 101 mg/dl (65-105)
[2023-07-04 04:18] LABS: Glucose Point of Care 98 mg/dl (65-105)
[2023-07-04] MEDS: LEVOTHYROXINE SODIUM 25 MCG TABLET FEED TUBE (06:04)
[2023-07-04] MEDS: CENTRAL LINE FLUSH 10 ML IV PUSH ×3 (06:04→22:45)
[2023-07-04] MEDS: metroNIDAZOLE 500 MG/ISO 100ML 500 MG/100 ML BAG 100 MG IVPB ×3 (06:04→22:45)
[2023-07-04] MEDS: guaiFENesin 200 MG/10 ML UDC 400 MG FEED TUBE ×3 (06:05→22:45)
[2023-07-04 06:59] LABS: Glucose Point of Care 98 mg/dl (65-105)
[2023-07-04] MEDS: PANTOPRAZOLE SODIUM IV 40 MG VIAL IV PUSH (08:22)
--- NOTE | 2023-07-04 10:50 | PC.NURSE ---
To GI lab via stretcher. Verbal report given to [facility].
[2023-07-04] MEDS: LACTATED RINGERS 1,000 ML 150 ML IV CONT (11:06)
--- NOTE | 2023-07-04 11:12 | WPDANESEPPF ---
Anes - Initial Pre Proc Eval Procedure: Operation Date: 07/04/23 11:30 Proposed Procedures p Percutaneous Endoscopic Gastrostomy - Carloz Wang MD Date/Time: 07/04/23 11:12 Surgeon: Ariella Morgan MD Pre Op Diagnosis: LUIS Patient Data Age: 58 Gender: M Height: 1.83 m Weight: 78.2 kg Last Vital Signs Temp 97.1 F L 07/04/23 11:02 Pulse 94 07/04/23 11:02 Resp 20 07/04/23 11:02 BP 124/77 07/04/23 11:02 Pulse Ox 100 07/04/23 11:02 O2 Del Method Nasal Cannula 07/04/23 11:02 O2 Flow Rate 4 07/04/23 11:02 FiO2 36 07/03/23 20:40 Allergies Allergy/AdvReac Type Severity Reaction Status Date / Time amoxicillin Allergy Rash Verified 06/24/23 12:27 gadobenic acid AdvReac Difficulty Verified 06/29/23 14:32 [From contrast - MRI] Breathing iohexol AdvReac Difficulty Verified 06/29/23 14:32 [From contrast - CT, X-RAY] Breathing Home Medications Medication Instructions Recorded Confirmed Type levothyroxine 25 mcg tablet 25 mcg PO DAILY 07/27/21 06/20/23 History potassium chloride 20 mEq 20 meq PO DAILY@0800 #60 tabs 07/30/21 06/20/23 Rx tablet,extended release (K-Tab) clopidogrel 75 mg tablet 75 mg PO QAM #30 tabs 08/17/21 06/20/23 Rx folic acid 1 mg tablet 1 mg PO DAILY #30 tabs 08/17/21 06/20/23 Rx megestrol 400 mg/10 mL (10 mL) 400 mg PO BID 08/26/21 06/20/23 History oral suspension pantoprazole 40 mg granules 40 mg PO Q12H 08/26/21 06/20/23 History delayed-release for susp in packet (Protonix) cyanocobalamin (vitamin B-12) 1,000 mcg PO DAILY #30 caps 08/30/21 06/20/23 Rx 1,000 mcg capsule docusate sodium 100 mg capsule 100 mg PO Q12H 11/09/22 06/20/23 History hydroxyzine HCl 25 mg tablet 25 mg PO Q8HR PRN Anxiety #30 tabs 11/25/22 06/20/23 Rx sodium chloride 1,000 mg soluble 1 g PO BID #60 tabs 11/25/22 06/20/23 Rx tablet furosemide 40 mg tablet 40 mg PO DAILY 04/10/23 06/20/23 History gabapentin 800 mg tablet 800 mg PO TID 04/10/23 06/20/23 History ibuprofen 800 mg tablet 800 mg PO Q8-12H PRN Pain 04/10/23 06/20/23 History lisinopril 20 mg tablet 20 mg PO DAILY 04/10/23 06/20/23 History ferrous sulfate 325 mg (65 mg 324 mg PO DAILY 30 days #0 tabs 04/18/23 06/20/23 Rx iron) tablet albuterol sulfate 2.5 mg/0.5 mL 2.5 mg inhalation Q6H PRN 06/20/23 06/20/23 History solution for nebulization Shortness Of Breath duloxetine 60 mg capsule,delayed 60 mg PO DAILY 06/20/23 06/20/23 History release tramadol 50 mg tablet 50 mg PO Q6H PRN Pain 06/20/23 06/20/23 History Laboratory Tests 07/03/23 07/03/23 07/04/23 11:47 18:04 02:07 POC Capillary Glucose 99 mg/dl 101 mg/dl 101 mg/dl (65-105) (65-105) (65-105) 07/04/23 07/04/23 04:01 05:59 POC Capillary Glucose 98 mg/dl 98 mg/dl (65-105) (65-105) Patient hx anesthesia problems: none Family hx anesthesia problems: none Results Review: All pre-operative results and documents have been reviewed as part of the pre-operative evaluation. [facility] Past Medical History Medical History (Updated 07/03/23 @ 14:01 by Carloz Wang MD) Acute GI bleeding Acute ischemic stroke Adult failure to thrive Alcohol dependence Aphasia Cerebrovascular accident With left-sided residual weakness. Chronic anemia Chronic hyponatremia Congestive heart failure Echocardiogram on 07/17/2021 showed normal LV chamber dimension and function with an estimated EF of 65 to 70% and grade 1 diastolic dysfunction with mild pulmonary hypertension estimated pulmonary arterial systolic pressure of 37 mmHg. Conjunctivitis COVID (08/2021) DVT prophylaxis Encephalopathy Gastroesophageal reflux disease Generalized weakness HCAP (healthcare-associated pneumonia) Hypertension Hypokalemia Hypokalemia Hypothyroidism Orthostatic hypotension Pneumonia Protein calorie malnutrition Rectal bleeding Sepsis Stroke Tobacco dependence Unwitnessed fall Urinary tract infection UTI (u
--- NOTE | 2023-07-04 11:23 | PCNFU ---
Nutrition Follow-Up Complete: Severe Protein Calorie Malnutrition as related to inadequate protein-energy intake with increased protien energy needs in setting of chronic disease as evidenced by minimal oral intake for > 1 month and 2+pitting edema at bilateral upper elbows, feet and upper legs. Goal: Meet estimated nutritional needs Patient is progressing towards goal. We will continue current goal. Pt current nutrition is NPO. Nutrition recommendation: Glucerna 1.2 at 75 ml/hr Last recorded weight is 78.2 kg. Bowel Motility: +BM reported 07/04 Labs Reviewed:Cr 0.4,Na 148, Hct 26.3,Hgb 8.4 Meds Noted: Rocephin,Synthroid. Skin:WNL Additional Notes: Patient NPO for PEG placement today. Tube feeding recommendations: Glucerna 1.2 at 20 ml/hr advance by 10 ml q 4 hours to goal rate of 75 ml/hr. Flush 100 ml q 4 hours. Tube feedings at goal rate providing 1980 kcals/99 gms protein/1328 ml water. Agree with diet orders. Will monitor weight, labs, tube feeding tolerance, skin every Saturday and Saturday.
--- NOTE | 2023-07-04 12:30 | PC.NURSE ---
Returned from GI Lab via stretcher.
[2023-07-04 12:53] LABS: Glucose Point of Care 62 mg/dl (65-105)
[2023-07-04] MEDS: DEXTROSE 50% 25 GM/50 ML SYRINGE IV PUSH (13:36)
[2023-07-04 14:13] LABS: Glucose Point of Care 88 mg/dl (65-105)
[2023-07-04 18:19] LABS: Glucose Point of Care 92 mg/dl (65-105)
[2023-07-04] MEDS: GABAPENTIN 300 MG CAPSULE FEED TUBE (22:45)
[2023-07-04 23:08] LABS: Glucose Point of Care 99 mg/dl (65-105)
[2023-07-05] VITALS (20 sets, daily range): BP systolic 103–109; BP diastolic 64–70; PULSE 94–104; RESP 14–24; TEMP 36.6–36.9; O2SAT 92–99
[2023-07-05] MEDS: IPRATROPIUM BR 0.02% INH SOLN 0.5 MG/2.5 ML VIAL INHALATION ×4 (01:10→20:30)
[2023-07-05] MEDS: ALBUTEROL SULFATE NEB 2.5 MG/3 ML INH INHALATION ×4 (01:10→20:29)
[2023-07-05] MEDS: CENTRAL LINE FLUSH 10 ML IV PUSH ×3 (06:09→22:40)
[2023-07-05] MEDS: metroNIDAZOLE 500 MG/ISO 100ML 500 MG/100 ML BAG 100 MG IVPB ×2 (06:09→14:22)
[2023-07-05] MEDS: LEVOTHYROXINE SODIUM 25 MCG TABLET FEED TUBE (06:09)
[2023-07-05] MEDS: guaiFENesin 200 MG/10 ML UDC 400 MG FEED TUBE ×3 (06:10→22:39)
[2023-07-05 06:49] LABS: Glucose Point of Care 103 mg/dl (65-105)
--- NOTE | 2023-07-05 10:18 | WPDANESPN ---
Anes - Prog Note Post-Op Date/Time: 07/05/23 10:18 Cardiovascular status: normal Respiratory status: normal Airway patency: baseline Mental status: baseline Post-Op hydration status: normal Vital Signs: Last Vital Signs Temp 36.9 C 07/05/23 05:16 Pulse 99 07/05/23 08:35 Resp 20 07/05/23 08:35 BP 108/69 07/05/23 05:16 Pulse Ox 96 07/05/23 08:35 O2 Del Method Nasal Cannula 07/05/23 08:35 O2 Flow Rate 2 07/05/23 08:35 FiO2 36 07/03/23 20:40 Pain Score (VAS): Patient asleep, no nonverbal signs of pain present at this time. I/O: Intake & Output 07/04/23 07/05/23 07/05/23 23:59 07:59 15:59 Intake Total 253 0 Output Total 350 601 Balance -97 -601 Laboratory Tests 07/03/23 06:09 07/03/23 06:09 07/04/23 07/04/23 07/04/23 12:49 14:09 18:16 POC Capillary Glucose 62 L 88 92 07/04/23 07/05/23 22:57 05:15 POC Capillary Glucose 99 103 Post-procedural complaints: none Patient Feedback: Patient satisfied with anesthetic care.
[2023-07-05] MEDS: THIAMINE HCL 100 MG TABLET FEED TUBE (10:20)
[2023-07-05] MEDS: FOLIC ACID 1 MG TABLET FEED TUBE (10:20)
[2023-07-05] MEDS: ATORVASTATIN 40 MG TABLET FEED TUBE (10:20)
[2023-07-05] MEDS: PANTOPRAZOLE SODIUM IV 40 MG VIAL IV PUSH (10:20)
[2023-07-05] MEDS: CYANOCOBALAMIN 1,000 MCG TABLET 1000 MCG FEED TUBE (10:20)
[2023-07-05] MEDS: FERROUS SULFATE LIQUID 325 MG/7.4 ML ELIXIR FEED TUBE (10:21)
--- NOTE | 2023-07-05 10:30 | WPDANESPN ---
Anes - Prog Note Post-Op Date/Time: 07/05/23 10:30 Cardiovascular status: normal Respiratory status: normal Airway patency: baseline Mental status: baseline Post-Op hydration status: normal Vital Signs: Last Vital Signs Temp 36.9 C 07/05/23 05:16 Pulse 99 07/05/23 08:35 Resp 20 07/05/23 08:35 BP 108/69 07/05/23 05:16 Pulse Ox 96 07/05/23 08:35 O2 Del Method Nasal Cannula 07/05/23 08:35 O2 Flow Rate 2 07/05/23 08:35 FiO2 36 07/03/23 20:40 Pain Score (VAS): 0 I/O: Intake & Output 07/04/23 07/05/23 07/05/23 23:59 07:59 15:59 Intake Total 253 0 Output Total 350 601 Balance -97 -601 Laboratory Tests 07/03/23 06:09 07/03/23 06:09 07/04/23 07/04/23 07/04/23 12:49 14:09 18:16 POC Capillary Glucose 62 L 88 92 07/04/23 07/05/23 22:57 05:15 POC Capillary Glucose 99 103 Post-procedural complaints: none Patient Feedback: Patient satisfied with anesthetic care.
--- NOTE | 2023-07-05 11:48 | PCNFU ---
Nutrition Follow-Up Complete: Severe Protein Calorie Malnutrition as related to inadequate protein-energy intake with increased protien energy needs in setting of chronic disease as evidenced by minimal oral intake for > 1 month and 2+pitting edema at bilateral upper elbows, feet and upper legs. Goal: Meet estimated nutritional needs Patient is progressing towards goal. We will continue current goal. Pt current nutrition is Glucerna 1.2 at 50 ml/hr. Nutrition recommendation: goal rate at 75 ml/hr Last recorded weight is 77 kg. Bowel Motility: +Bm reported 07/05 Labs Reviewed:no new labs to report. Meds Noted:Ferrous Sulfate, B12, Flagyl Skin: WNL Additional Notes: Patient had PEG placement 07/04. Tolerating tube feedings well per nursing. Working to get to goal rate today of 75 ml/hr. Tube feeding of Glucerna 1.2 will provide patient with 1980 kcals/99 gms protein/1328 ml water. Flush 100 ml q 4 hours. Tube feeding meeting 100% kcal and protein needs at 25 kcal/kg and 1.2-1.4 gm/kg protein. Banatrol Plus TF BID added for stool bulking. Agree with diet orders. Will monitor weight, labs, tube feeding tolerance, skin every Saturday and Saturday.
[2023-07-05 11:51] LABS: Glucose Point of Care 71 mg/dl (65-105)
--- NOTE | 2023-07-05 13:18 | PM.IMPN ---
Progress Note: A&P Assessment and Plan (1) Respiratory distress, acute: Code(s): R06.03 - Acute respiratory distress Status: Acute Assessment and Plan: Question related to aspiration pneumonia versus volume overload. Lasix p.r.n. (2) AMS (altered mental status): Code(s): R41.82 - Altered mental status, unspecified Status: Acute Assessment and Plan: Likely related to chronic alcohol use. (3) Dysphagia: Code(s): R13.10 - Dysphagia, unspecified Status: Acute Assessment and Plan: PEG tube Continue tube feeds (4) Chronic anemia: Code(s): D64.9 - Anemia, unspecified Status: Acute Assessment and Plan: Monitor (5) Protein calorie malnutrition: Code(s): E46 - Unspecified protein-calorie malnutrition Status: Acute Assessment and Plan: Monitor now on TF PEG (6) Alcohol use disorder: Code(s): F10.90 - Alcohol use, unspecified, uncomplicated Status: Acute Assessment and Plan: Monitor. (7) Hypoglycemia: Code(s): E16.2 - Hypoglycemia, unspecified Status: Acute Assessment and Plan: Monitor. (8) Hypokalemia: Code(s): E87.6 - Hypokalemia Status: Acute Assessment and Plan: Replace as needed (9) Hyponatremia: Code(s): E87.1 - Hypo-osmolality and hyponatremia Status: Chronic Assessment and Plan: Monitor (10) UTI (urinary tract infection): Code(s): N39.0 - Urinary tract infection, site not specified Status: Acute Assessment and Plan: Status post trach ertapenem -monitor (11) C. difficile colitis: Code(s): A04.72 - Enterocolitis due to Clostridium difficile, not specified as recurrent Status: Acute Assessment and Plan: Treated with oral vanc (12) LUIS (acute kidney injury): Code(s): N17.9 - Acute kidney failure, unspecified Status: Acute Assessment and Plan: Monitor kidney function and electrolytes. (13) Congestive heart failure: Code(s): I50.9 - Heart failure, unspecified Status: Acute Assessment and Plan: Lasix as needed. (14) Debility, unspecified: Code(s): R53.81 - Other malaise Status: Acute Assessment and Plan: Secondary to chronic alcohol use. (15) Conjunctivitis: Code(s): H10.9 - Unspecified conjunctivitis Status: Acute Assessment and Plan: Eye drops werer ordered. He has completed a course of treatment (16) Hypothyroidism: Code(s): E03.9 - Hypothyroidism, unspecified Status: Acute Assessment and Plan: TSH normal. Continue with levothyroxine Plan Awaiting placement. Subjective Date/time seen: 07/05/23 13:18 Interval history: No New complaints or events overnight Exam Narrative: HEENT - NGT secured. Chest - coarse BS anteriorly CV - regular, mild tachycardia. Tele showing 3b NSVT Abd - Soft, less tender, +BS - Ca secured draining clear, yellow urine Ext - mild diffuse UE/LE edema Neuro - eyes open. nonverbal. only occasionally acknowledges provider Skin - scant macupapular truncal rash. no mottling Objective Data Vital Signs Vital Signs: Vital Signs - 24 hr 07/04/23 13:20 07/04/23 16:04 07/04/23 19:46 Temperature 98.3 F Pulse Rate 94 89 98 Respiratory Rate 20 18 Blood Pressure 111/72 Pulse Oximetry 95 Oxygen Delivery Oxygen Flow Rate 07/04/23 20:24 07/04/23 20:42 07/05/23 01:10 Temperature Pulse Rate 91 98 96 Respiratory Rate 20 22 H 20 Blood Pressure Pulse Oximetry Oxygen Delivery Oxygen Flow Rate 07/05/23 01:22 07/04/23 20:00 07/05/23 05:16 Temperature 98.4 F Pulse Rate 101 H 103 H Respiratory Rate 20 24 H Blood Pressure 108/69 Pulse Oximetry 96 92 Oxygen Delivery Nasal Cannula Oxygen Flow Rate 2.5 07/04/23 20:00 07/05/23 00:00 07/05/23 04
--- NOTE | 2023-07-05 13:23 | WPDGIPROGNO ---
Progress Note: A&P Assessment and Plan (1) Encephalopathy: Code(s): G93.40 - Encephalopathy, unspecified Status: Acute Assessment and Plan: s/p g-tube and tolerating feeding ok to resume plavix in 2 days (held since we just placed G-tube) (2) Dysphagia: Code(s): R13.10 - Dysphagia, unspecified Status: Acute (3) Cerebrovascular accident: Code(s): I63.9 - Cerebral infarction, unspecified Status: Acute (4) Erosive gastritis: Code(s): K29.60 - Other gastritis without bleeding Status: Acute Assessment and Plan: no signs of bleeding protonix daily (5) Alcohol dependence: Code(s): F10.20 - Alcohol dependence, uncomplicated Status: Acute Assessment and Plan: supportive care (6) Chronic anemia: Code(s): D64.9 - Anemia, unspecified Status: Acute Subjective Date/time seen: 07/05/23 13:23 Interval history: peg placed yesterday and tolerating tube feeding also had erosive gastritis Review of Systems Review of Systems: All systems reviewed & are unremarkable except as noted in HPI and below Exam Narrative: chronically ill appearing HEENT - NGT secured. neck supple Chest - coarse BS anteriorly CV - regular, mild tachycardia. Abd - Soft, +BS, PEG in place and tolerating feeding - Ca secured draining clear, yellow urine Ext - mild diffuse UE/LE edema Neuro - eyes open. nonverbal. only occasionally acknowledges provider Skin - no changes Objective Data Vital Signs Vital Signs: Vital Signs - 24 hr 07/04/23 16:04 07/04/23 19:46 07/04/23 20:24 Temperature 98.3 F Pulse Rate 89 98 91 Respiratory Rate 18 20 Blood Pressure 111/72 Pulse Oximetry 95 Oxygen Delivery Oxygen Flow Rate 07/04/23 20:42 07/05/23 01:10 07/05/23 01:22 Temperature Pulse Rate 98 96 101 H Respiratory Rate 22 H 20 20 Blood Pressure Pulse Oximetry Oxygen Delivery Oxygen Flow Rate 07/04/23 20:00 07/05/23 05:16 07/04/23 20:00 Temperature 98.4 F Pulse Rate 103 H 100 Respiratory Rate 24 H Blood Pressure 108/69 Pulse Oximetry 96 92 Oxygen Delivery Nasal Cannula Oxygen Flow Rate 2.5 07/05/23 00:00 07/05/23 04:00 07/05/23 08:09 Temperature Pulse Rate 95 94 99 Respiratory Rate 22 H Blood Pressure Pulse Oximetry Oxygen Delivery Oxygen Flow Rate 07/05/23 08:35 07/05/23 08:35 Temperature Pulse Rate 103 H 99 Respiratory Rate 20 20 Blood Pressure Pulse Oximetry 96 Oxygen Delivery Nasal Cannula Oxygen Flow Rate 2 Intake/Output Intake/Output: Intake & Output 07/02/23 07/03/23 07/04/23 07/05/23 23:59 23:59 23:59 23:59 Intake Total 2778 2435 1312 0 Output Total 950 825 800 601 Balance 1828 1610 512 -601 Meds/Results Medications: Active Medications Generic Name Dose Route Start Last Admin Trade Name Freq PRN Reason Stop Dose Admin Albuterol 2.5 mg 06/30/23 21:58 07/05/23 08:03 Albuterol Sulfate Neb 2.5 Mg/3 Ml Inh INHALATION 2.5 mg Q6HRT NESSA Administration Atorvastatin Calcium 40 mg 06/28/23 09:00 07/05/23 10:20 Atorvastatin 40 Mg Tablet FEED TUBE 40 mg DAILY NESSA Administration Cyanocobalamin 1,000 mcg 06/28/23 09:00 07/05/23 10:20 Cyanocobalamin 1,000 Mcg Tablet FEED TUBE 1,000 mcg DAILY NESSA Administration Dextrose 12.5 gm 06/24/23 12:09 07/04/23 13:36 Dextrose 50% 25 Gm/50 Ml Syringe IV PUSH 12.5 gm PRN PRN Administration Hypoglycemia Protocol Duloxetine HCl 60 mg 07/06/23 09:00 Duloxetine Hcl 60 Mg Capsule. XX DAILY NESSA Ferrous Sulfate 325 mg 07/05/23 09:55 07/05/23 10:21 Ferrous Sulfate Liquid 325 Mg/7.4 Ml Elixir FEED TUBE 325 mg DAILY@0800 NESSA Administration Folic Acid 1 mg 06/28/23 09:00 07/05/23 10:20 Folic Acid 1 Mg Tablet FEED TUBE 1 mg DAILY NESSA Administration Gabapentin 300 mg 06/28/23 21:00 07/04/23 22:45 Gabapentin 3
[2023-07-05 18:45] LABS: Glucose Point of Care 99 mg/dl (65-105)
[2023-07-05] MEDS: GABAPENTIN 300 MG CAPSULE FEED TUBE (22:38)
--- NOTE | 2023-07-05 23:07 | PC.NURSE ---
Pt had scheduled a final dose of IV Flagyl abx @2200, PICC line no longer flushing when trying to flush again. Called hospitalist and ordered to give Cathflo. Called pharmacy to have them retime abx due time. Pharmacist said to call back once Cathflo dual time done and will retime then, to make sure access is back.
[2023-07-05] MEDS: ALTEPLASE 2 MG VIAL (CATHFLO) IV PUSH (23:27)
[2023-07-06] VITALS (21 sets, daily range): BP systolic 93–98; BP diastolic 60–63; PULSE 89–110; RESP 14–20; TEMP 36.6; O2SAT 96–100
[2023-07-06 00:16] LABS: Glucose Point of Care 93 mg/dl (65-105)
[2023-07-06] MEDS: metroNIDAZOLE 500 MG/ISO 100ML 500 MG/100 ML BAG 100 MG IVPB (01:32)
[2023-07-06] MEDS: ALBUTEROL SULFATE NEB 2.5 MG/3 ML INH INHALATION ×4 (02:20→20:28)
[2023-07-06] MEDS: IPRATROPIUM BR 0.02% INH SOLN 0.5 MG/2.5 ML VIAL INHALATION ×4 (02:20→20:28)
[2023-07-06] MEDS: CENTRAL LINE FLUSH 20 ML IV PUSH (05:18)
[2023-07-06] MEDS: CENTRAL LINE FLUSH 10 ML IV PUSH ×3 (05:18→22:38)
[2023-07-06] MEDS: guaiFENesin 200 MG/10 ML UDC 400 MG FEED TUBE ×3 (05:19→22:37)
[2023-07-06 05:37] LABS: Anion Gap -2 mmol/L (8-16); Blood Urea Nitrogen 10 mg/dL (9-20); Calcium 7.8 mg/dL (8.4-10.2); Carbon Dioxide 33 mmol/L (22-30); Chloride 109 mmol/L (98-107); Estimated CRCL calculation 180 ml/min; Estimated Glomerular Filt Rate > 60; Glucose 108 mg/dL (65-110); Potassium 3.9 mmol/L (3.4-5.0); Sodium 140 mmol/L (137-145)
[2023-07-06] MEDS: LEVOTHYROXINE SODIUM 25 MCG TABLET FEED TUBE (05:41)
[2023-07-06 06:01] LABS: Glucose Point of Care 91 mg/dl (65-105)
[2023-07-06] MEDS: FERROUS SULFATE LIQUID 325 MG/7.4 ML ELIXIR FEED TUBE (10:01)
[2023-07-06] MEDS: ATORVASTATIN 40 MG TABLET FEED TUBE (10:01)
[2023-07-06] MEDS: CYANOCOBALAMIN 1,000 MCG TABLET 1000 MCG FEED TUBE (10:02)
[2023-07-06] MEDS: FOLIC ACID 1 MG TABLET FEED TUBE (10:02)
[2023-07-06] MEDS: PANTOPRAZOLE SODIUM IV 40 MG VIAL IV PUSH (10:02)
[2023-07-06] MEDS: THIAMINE HCL 100 MG TABLET FEED TUBE (10:02)
[2023-07-06 11:43] LABS: Glucose Point of Care 64 mg/dl (65-105)
[2023-07-06] MEDS: DEXTROSE 50% 25 GM/50 ML SYRINGE IV PUSH ×3 (11:51→19:20)
[2023-07-06 12:09] LABS: Glucose Point of Care 83 mg/dl (65-105)
--- NOTE | 2023-07-06 13:12 | PM.IMPN ---
Progress Note: A&P Assessment and Plan (1) Respiratory distress, acute: Code(s): R06.03 - Acute respiratory distress Status: Acute Assessment and Plan: Question related to aspiration pneumonia versus volume overload. Lasix p.r.n. (2) AMS (altered mental status): Code(s): R41.82 - Altered mental status, unspecified Status: Acute Assessment and Plan: Likely related to chronic alcohol use. (3) Dysphagia: Code(s): R13.10 - Dysphagia, unspecified Status: Acute Assessment and Plan: PEG tube Continue tube feeds (4) Chronic anemia: Code(s): D64.9 - Anemia, unspecified Status: Acute Assessment and Plan: Monitor (5) Protein calorie malnutrition: Code(s): E46 - Unspecified protein-calorie malnutrition Status: Acute Assessment and Plan: Monitor now on TF PEG (6) Alcohol use disorder: Code(s): F10.90 - Alcohol use, unspecified, uncomplicated Status: Acute Assessment and Plan: Monitor. (7) Hypoglycemia: Code(s): E16.2 - Hypoglycemia, unspecified Status: Acute Assessment and Plan: Monitor. (8) Hypokalemia: Code(s): E87.6 - Hypokalemia Status: Acute Assessment and Plan: Replace as needed (9) Hyponatremia: Code(s): E87.1 - Hypo-osmolality and hyponatremia Status: Chronic Assessment and Plan: Monitor (10) UTI (urinary tract infection): Code(s): N39.0 - Urinary tract infection, site not specified Status: Acute Assessment and Plan: Status post trach ertapenem -monitor (11) C. difficile colitis: Code(s): A04.72 - Enterocolitis due to Clostridium difficile, not specified as recurrent Status: Acute Assessment and Plan: Treated with oral vanc (12) LUIS (acute kidney injury): Code(s): N17.9 - Acute kidney failure, unspecified Status: Acute Assessment and Plan: Monitor kidney function and electrolytes. (13) Congestive heart failure: Code(s): I50.9 - Heart failure, unspecified Status: Acute Assessment and Plan: Lasix as needed. (14) Debility, unspecified: Code(s): R53.81 - Other malaise Status: Acute Assessment and Plan: Secondary to chronic alcohol use. (15) Conjunctivitis: Code(s): H10.9 - Unspecified conjunctivitis Status: Acute Assessment and Plan: Eye drops werer ordered. He has completed a course of treatment (16) Hypothyroidism: Code(s): E03.9 - Hypothyroidism, unspecified Status: Acute Assessment and Plan: TSH normal. Continue with levothyroxine Plan Awaiting placement. Subjective Date/time seen: 07/06/23 13:12 Interval history: No new complaints. More alert today Exam Narrative: HEENT - NGT secured. Chest - coarse BS anteriorly CV - regular, mild tachycardia. Tele showing 3b NSVT Abd - Soft, less tender, +BS - Ca secured draining clear, yellow urine Ext - mild diffuse UE/LE edema Neuro - eyes open. nonverbal. only occasionally acknowledges provider Skin - scant macupapular truncal rash. no mottling Objective Data Vital Signs Vital Signs: Vital Signs - 24 hr 07/05/23 14:15 07/05/23 14:25 07/05/23 15:30 Temperature Pulse Rate 100 102 H 98 Respiratory Rate 20 20 18 Blood Pressure 103/70 Pulse Oximetry 94 Oxygen Delivery Oxygen Flow Rate 07/05/23 16:00 07/05/23 20:16 07/05/23 20:30 Temperature 98 F Pulse Rate 95 98 100 Respiratory Rate 14 20 Blood Pressure 109/64 Pulse Oximetry 96 Oxygen Delivery Oxygen Flow Rate 07/05/23 20:42 07/05/23 20:52 07/05/23 22:17 Temperature Pulse Rate 101 H Respiratory Rate 20 Blood Pressure Pulse Oximetry 99 99 Oxygen Delivery Nasal Cannula Nasal Cannula Oxygen Flow Rate 2 2 07/05/23 20:00 07/06/23 00:00 07/06/23 02:
--- NOTE | 2023-07-06 15:06 | WPDGIPROGNO ---
Progress Note: A&P Assessment and Plan (1) Encephalopathy: Code(s): G93.40 - Encephalopathy, unspecified Status: Acute Assessment and Plan: s/p g-tube and tolerating feeding ok to resume plavix in 1 day (held since we just placed G-tube) (2) Dysphagia: Code(s): R13.10 - Dysphagia, unspecified Status: Acute Assessment and Plan: combination of encephalopathy/previous cva, etc continue with tube feeding (3) Cerebrovascular accident: Code(s): I63.9 - Cerebral infarction, unspecified Status: Acute (4) Erosive gastritis: Code(s): K29.60 - Other gastritis without bleeding Status: Acute Assessment and Plan: no signs of bleeding protonix daily (5) Alcohol dependence: Code(s): F10.20 - Alcohol dependence, uncomplicated Status: Acute Assessment and Plan: supportive care (6) Chronic anemia: Code(s): D64.9 - Anemia, unspecified Status: Acute Assessment and Plan: hgb stable 8.4 Subjective Date/time seen: 07/06/23 15:06 Interval history: he is talking more today tolerating tube feeding Review of Systems Review of Systems: All systems reviewed & are unremarkable except as noted in HPI and below Exam Narrative: chronically ill appearing neck supple Chest - coarse BS anteriorly CV - regular. Abd - Soft, +BS, PEG in place and tolerating feeding - Ca secured draining clear, yellow urine Ext - mild diffuse UE/LE edema Neuro - eyes open. he is talking more today Skin - no changes Objective Data Vital Signs Vital Signs: Vital Signs - 24 hr 07/05/23 15:30 07/05/23 16:00 07/05/23 20:16 Temperature 98 F Pulse Rate 98 95 98 Respiratory Rate 18 14 Blood Pressure 103/70 109/64 Pulse Oximetry 94 96 Oxygen Delivery Oxygen Flow Rate 07/05/23 20:30 07/05/23 20:42 07/05/23 20:52 Temperature Pulse Rate 100 101 H Respiratory Rate 20 20 Blood Pressure Pulse Oximetry 99 Oxygen Delivery Nasal Cannula Oxygen Flow Rate 2 07/05/23 22:17 07/05/23 20:00 07/06/23 00:00 Temperature Pulse Rate 100 110 H Respiratory Rate Blood Pressure Pulse Oximetry 99 Oxygen Delivery Nasal Cannula Oxygen Flow Rate 2 07/06/23 02:22 07/06/23 02:33 07/06/23 04:00 Temperature Pulse Rate 99 102 H 104 H Respiratory Rate 20 20 Blood Pressure Pulse Oximetry Oxygen Delivery Oxygen Flow Rate 07/06/23 05:50 07/06/23 08:41 07/06/23 08:59 Temperature 98 F Pulse Rate 103 H 101 H 102 H Respiratory Rate 14 20 20 Blood Pressure 93/60 L Pulse Oximetry 96 Oxygen Delivery Oxygen Flow Rate 07/06/23 08:00 07/06/23 09:55 07/06/23 12:00 Temperature Pulse Rate 97 93 Respiratory Rate Blood Pressure Pulse Oximetry 96 Oxygen Delivery Nasal Cannula Oxygen Flow Rate 2 07/06/23 14:04 Temperature Pulse Rate 94 Respiratory Rate 18 Blood Pressure 94/62 L Pulse Oximetry 98 Oxygen Delivery Oxygen Flow Rate Intake/Output Intake/Output: Intake & Output 07/03/23 07/04/23 07/05/23 07/06/23 23:59 23:59 23:59 23:59 Intake Total 2435 7129 763 4319 Output Total 397 445 4042 500 Balance 1610 512 -1201 1126 Meds/Results Medications: Active Medications Generic Name Dose Route Start Last Admin Trade Name Freq PRN Reason Stop Dose Admin Albuterol 2.5 mg 06/30/23 21:58 07/06/23 08:40 Albuterol Sulfate Neb 2.5 Mg/3 Ml Inh INHALATION 2.5 mg Q6HRT NESSA Administration Alteplase, Recombinant 2 mg 07/05/23 23:03 07/05/23 23:27 Alteplase 2 Mg Vial (Cathflo) IV PUSH 2 mg ONCE PRN Administration Line Occlusion Atorvastatin Calcium 40 mg 06/28/23 09:00 07/06/23 10:01 Atorvastatin 40 Mg Tablet FEED TUBE 40 mg DAILY NESSA Administration Clopidogrel Bisulfate 75 mg 07/08/23 09:00 Clopidogrel Bisulfate 75 Mg Tablet PO QAM [facility] Cyanocobalamin 1,000 mcg 06/28/23 09:00 0812
[2023-07-06 19:00] LABS: Glucose Point of Care 62 mg/dl (65-105)
[2023-07-06 19:18] LABS: Glucose Point of Care 62 mg/dl (65-105)
[2023-07-06 19:18] LABS: Glucose Point of Care 46 mg/dl (65-105)
[2023-07-06 19:22] LABS: Glucose Point of Care 47 mg/dl (65-105)
[2023-07-06 19:40] LABS: Glucose Point of Care 143 mg/dl (65-105)
[2023-07-06] MEDS: DEXTROSE 10% 1,000 ML 50 ML IV CONT (20:02)
[2023-07-06] MEDS: GABAPENTIN 300 MG CAPSULE FEED TUBE (22:37)
[2023-07-07] VITALS (21 sets, daily range): BP systolic 100–108; BP diastolic 64; PULSE 92–102; RESP 14–22; TEMP 36.5–37.4; O2SAT 94–100
[2023-07-07 00:17] LABS: Glucose Point of Care 91 mg/dl (65-105)
[2023-07-07] MEDS: ALBUTEROL SULFATE NEB 2.5 MG/3 ML INH INHALATION ×4 (02:21→20:43)
[2023-07-07] MEDS: IPRATROPIUM BR 0.02% INH SOLN 0.5 MG/2.5 ML VIAL INHALATION ×4 (02:22→20:43)
[2023-07-07 05:46] LABS: Glucose Point of Care 102 mg/dl (65-105)
[2023-07-07] MEDS: LEVOTHYROXINE SODIUM 25 MCG TABLET FEED TUBE (05:56)
[2023-07-07] MEDS: guaiFENesin 200 MG/10 ML UDC 400 MG FEED TUBE ×3 (05:56→21:56)
[2023-07-07] MEDS: CENTRAL LINE FLUSH 10 ML IV PUSH ×3 (05:57→21:56)
[2023-07-07] MEDS: CYANOCOBALAMIN 1,000 MCG TABLET 1000 MCG FEED TUBE (09:30)
[2023-07-07] MEDS: FERROUS SULFATE LIQUID 325 MG/7.4 ML ELIXIR FEED TUBE (09:30)
[2023-07-07] MEDS: ATORVASTATIN 40 MG TABLET FEED TUBE (09:31)
[2023-07-07] MEDS: PANTOPRAZOLE SODIUM IV 40 MG VIAL IV PUSH (09:31)
[2023-07-07] MEDS: THIAMINE HCL 100 MG TABLET FEED TUBE (09:31)
[2023-07-07] MEDS: FOLIC ACID 1 MG TABLET FEED TUBE (09:31)
--- NOTE | 2023-07-07 10:50 | PM.IMPN ---
Progress Note: A&P Assessment and Plan (1) Respiratory distress, acute: Code(s): R06.03 - Acute respiratory distress Status: Acute Assessment and Plan: Improved (2) AMS (altered mental status): Code(s): R41.82 - Altered mental status, unspecified Status: Acute Assessment and Plan: Likely related to chronic alcohol use. (3) Dysphagia: Code(s): R13.10 - Dysphagia, unspecified Status: Acute Assessment and Plan: PEG tube Continue tube feeds (4) Chronic anemia: Code(s): D64.9 - Anemia, unspecified Status: Acute Assessment and Plan: Monitor (5) Protein calorie malnutrition: Code(s): E46 - Unspecified protein-calorie malnutrition Status: Acute Assessment and Plan: Monitor now on TF PEG (6) Alcohol use disorder: Code(s): F10.90 - Alcohol use, unspecified, uncomplicated Status: Acute Assessment and Plan: Monitor. (7) Hypoglycemia: Code(s): E16.2 - Hypoglycemia, unspecified Status: Acute Assessment and Plan: Monitor. (8) Hypokalemia: Code(s): E87.6 - Hypokalemia Status: Acute Assessment and Plan: Replace as needed (9) Hyponatremia: Code(s): E87.1 - Hypo-osmolality and hyponatremia Status: Chronic Assessment and Plan: Monitor (10) UTI (urinary tract infection): Code(s): N39.0 - Urinary tract infection, site not specified Status: Acute Assessment and Plan: Status post trach ertapenem -monitor (11) C. difficile colitis: Code(s): A04.72 - Enterocolitis due to Clostridium difficile, not specified as recurrent Status: Acute Assessment and Plan: Treated with oral vanc (12) LUIS (acute kidney injury): Code(s): N17.9 - Acute kidney failure, unspecified Status: Acute Assessment and Plan: Monitor kidney function and electrolytes. (13) Congestive heart failure: Code(s): I50.9 - Heart failure, unspecified Status: Acute Assessment and Plan: Lasix as needed. (14) Debility, unspecified: Code(s): R53.81 - Other malaise Status: Acute Assessment and Plan: Secondary to chronic alcohol use. (15) Conjunctivitis: Code(s): H10.9 - Unspecified conjunctivitis Status: Acute Assessment and Plan: Eye drops werer ordered. He has completed a course of treatment (16) Hypothyroidism: Code(s): E03.9 - Hypothyroidism, unspecified Status: Acute Assessment and Plan: TSH normal. Continue with levothyroxine Plan Awaiting placement. Subjective Date/time seen: 07/07/23 10:50 Interval history: No new complaints Exam Narrative: Chest - coarse BS anteriorly CV - regular, mild tachycardia. Tele showing 3b NSVT Abd - Soft, less tender, +BS - Ca secured draining clear, yellow urine Ext - mild diffuse UE/LE edema Neuro - eyes open. nonverbal. only occasionally acknowledges provider Skin - scant macupapular truncal rash. no mottling Objective Data Vital Signs Vital Signs: Vital Signs - 24 hr 07/06/23 12:00 07/06/23 14:04 07/06/23 14:50 Temperature Pulse Rate 93 94 91 Respiratory Rate 18 20 Blood Pressure 94/62 L Pulse Oximetry 98 Oxygen Delivery Oxygen Flow Rate 07/06/23 15:08 07/06/23 16:00 07/06/23 19:59 Temperature 98 F Pulse Rate 91 97 89 Respiratory Rate 20 14 Blood Pressure 98/63 L Pulse Oximetry 100 Oxygen Delivery Oxygen Flow Rate 07/06/23 20:28 07/06/23 20:39 07/06/23 20:43 Temperature Pulse Rate 95 98 Respiratory Rate 20 20 20 Blood Pressure Pulse Oximetry 98 Oxygen Delivery Nasal Cannula Oxygen Flow Rate 3 07/06/23 20:00 07/07/23 00:00 07/06/23 22:20 Temperature Pulse Rate 89 96 Respiratory Rate Blood Pressure Pulse Oximetry 98 Oxygen Delivery Nasal Cannu
[2023-07-07 12:07] LABS: Glucose Point of Care 91 mg/dl (65-105)
[2023-07-07] MEDS: DEXTROSE 10% 1,000 ML 50 ML IV CONT (16:57)
[2023-07-07 19:14] LABS: Glucose Point of Care 99 mg/dl (65-105)
[2023-07-07] MEDS: GABAPENTIN 300 MG CAPSULE FEED TUBE (21:56)
[2023-07-08] VITALS (17 sets, daily range): BP systolic 108–116; BP diastolic 62–71; PULSE 89–104; RESP 18–20; TEMP 36.2–37.3; O2SAT 94–99
[2023-07-08 00:29] LABS: Glucose Point of Care 109 mg/dl (65-105)
[2023-07-08] MEDS: ALBUTEROL SULFATE NEB 2.5 MG/3 ML INH INHALATION ×4 (02:56→20:26)
[2023-07-08] MEDS: IPRATROPIUM BR 0.02% INH SOLN 0.5 MG/2.5 ML VIAL INHALATION ×4 (02:57→20:26)
[2023-07-08 04:26] LABS: Anion Gap -4 mmol/L (8-16); Blood Urea Nitrogen 9 mg/dL (9-20); Calcium 7.9 mg/dL (8.4-10.2); Carbon Dioxide 31 mmol/L (22-30); Chloride 100 mmol/L (98-107); Estimated CRCL calculation 181 ml/min; Estimated Glomerular Filt Rate > 60; Glucose 92 mg/dL (65-110); Sodium 127 mmol/L (137-145)
[2023-07-08] MEDS: guaiFENesin 200 MG/10 ML UDC 400 MG FEED TUBE ×3 (05:43→21:22)
[2023-07-08] MEDS: CENTRAL LINE FLUSH 10 ML IV PUSH ×3 (05:43→21:22)
[2023-07-08] MEDS: LEVOTHYROXINE SODIUM 25 MCG TABLET FEED TUBE (05:44)
[2023-07-08 08:38] LABS: Glucose Point of Care 103 mg/dl (65-105)
[2023-07-08] MEDS: CLOPIDOGREL BISULFATE 75 MG TABLET PO (08:40)
[2023-07-08] MEDS: THIAMINE HCL 100 MG TABLET FEED TUBE (08:40)
[2023-07-08] MEDS: ATORVASTATIN 40 MG TABLET FEED TUBE (08:40)
[2023-07-08] MEDS: CYANOCOBALAMIN 1,000 MCG TABLET 1000 MCG FEED TUBE (08:40)
[2023-07-08] MEDS: FOLIC ACID 1 MG TABLET FEED TUBE (08:40)
[2023-07-08] MEDS: FERROUS SULFATE LIQUID 325 MG/7.4 ML ELIXIR FEED TUBE (08:40)
[2023-07-08] MEDS: PANTOPRAZOLE SODIUM IV 40 MG VIAL IV PUSH (08:40)
--- NOTE | 2023-07-08 11:26 | PM.IMPN ---
Progress Note: A&P Assessment and Plan (1) Respiratory distress, acute: Code(s): R06.03 - Acute respiratory distress Status: Acute Assessment and Plan: Improved (2) AMS (altered mental status): Code(s): R41.82 - Altered mental status, unspecified Status: Acute Assessment and Plan: Likely related to chronic alcohol use. Improved overall. (3) Dysphagia: Code(s): R13.10 - Dysphagia, unspecified Status: Acute Assessment and Plan: PEG tube Continue tube feeds (4) Chronic anemia: Code(s): D64.9 - Anemia, unspecified Status: Acute Assessment and Plan: Monitor (5) Protein calorie malnutrition: Code(s): E46 - Unspecified protein-calorie malnutrition Status: Acute Assessment and Plan: Monitor now on TF PEG (6) Alcohol use disorder: Code(s): F10.90 - Alcohol use, unspecified, uncomplicated Status: Acute Assessment and Plan: Monitor. (7) Hypoglycemia: Code(s): E16.2 - Hypoglycemia, unspecified Status: Acute Assessment and Plan: Monitor. (8) Hypokalemia: Code(s): E87.6 - Hypokalemia Status: Acute Assessment and Plan: Replace as needed (9) Hyponatremia: Code(s): E87.1 - Hypo-osmolality and hyponatremia Status: Chronic Assessment and Plan: Secondary to excessive free water. Monitor electrolytes. (10) UTI (urinary tract infection): Code(s): N39.0 - Urinary tract infection, site not specified Status: Acute Assessment and Plan: Status post ertapenem -monitor (11) C. difficile colitis: Code(s): A04.72 - Enterocolitis due to Clostridium difficile, not specified as recurrent Status: Acute Assessment and Plan: Treated with oral vanc (12) LUIS (acute kidney injury): Code(s): N17.9 - Acute kidney failure, unspecified Status: Acute Assessment and Plan: Monitor kidney function and electrolytes. (13) Congestive heart failure: Code(s): I50.9 - Heart failure, unspecified Status: Acute Assessment and Plan: Lasix as needed. (14) Debility, unspecified: Code(s): R53.81 - Other malaise Status: Acute Assessment and Plan: Secondary to chronic alcohol use. (15) Conjunctivitis: Code(s): H10.9 - Unspecified conjunctivitis Status: Acute Assessment and Plan: Eye drops werer ordered. He has completed a course of treatment (16) Hypothyroidism: Code(s): E03.9 - Hypothyroidism, unspecified Status: Acute Assessment and Plan: TSH normal. Continue with levothyroxine Plan Awaiting placement. Subjective Date/time seen: 07/08/23 11:26 Interval history: more alert each day answering questions Exam Narrative: Chest - coarse BS anteriorly CV - regular, mild tachycardia. Tele showing 3b NSVT Abd - Soft, less tender, +BS - Ca secured draining clear, yellow urine Ext - mild diffuse UE/LE edema Neuro - eyes open. nonverbal. only occasionally acknowledges provider Skin - scant macupapular truncal rash. no mottling Objective Data Vital Signs Vital Signs: Vital Signs - 24 hr 07/07/23 13:26 07/07/23 13:38 07/07/23 12:00 Temperature Pulse Rate 94 94 94 Respiratory Rate 20 20 Blood Pressure Pulse Oximetry Oxygen Delivery Oxygen Flow Rate Fraction of Inspired Oxygen 07/07/23 16:00 07/07/23 14:00 07/07/23 20:43 Temperature 98 F Pulse Rate 95 96 100 Respiratory Rate 16 22 H Blood Pressure 100/64 Pulse Oximetry 100 Oxygen Delivery Oxygen Flow Rate Fraction of Inspired Oxygen 07/07/23 21:03 07/07/23 20:59 07/07/23 22:32 Temperature 99.4 F Pulse Rate 102 H 92 Respiratory Rate 20 18 Blood Pressure 108/64 Pulse Oximetry 94 97 Oxygen Delivery Nasal Cannula Oxygen Flow Rate 2 Fraction of Inspi
[2023-07-08 11:49] LABS: Glucose Point of Care 100 mg/dl (65-105)
[2023-07-08 16:13] LABS: Anion Gap 2 mmol/L (8-16); Blood Urea Nitrogen 11 mg/dL (9-20); Calcium 7.8 mg/dL (8.4-10.2); Carbon Dioxide 29 mmol/L (22-30); Chloride 100 mmol/L (98-107); Estimated CRCL calculation 225 ml/min; Estimated Glomerular Filt Rate > 60; Glucose 103 mg/dL (65-110); Potassium 3.9 mmol/L (3.4-5.0); Sodium 131 mmol/L (137-145)
[2023-07-08 17:09] LABS: Glucose Point of Care 102 mg/dl (65-105)
[2023-07-08] MEDS: GABAPENTIN 300 MG CAPSULE FEED TUBE (21:22)
[2023-07-09] VITALS (13 sets, daily range): BP systolic 92–96; BP diastolic 51–57; PULSE 87–103; RESP 16–20; TEMP 36.7–37.3; O2SAT 92–97
[2023-07-09] MEDS: IPRATROPIUM BR 0.02% INH SOLN 0.5 MG/2.5 ML VIAL INHALATION ×3 (01:10→14:21)
[2023-07-09] MEDS: ALBUTEROL SULFATE NEB 2.5 MG/3 ML INH INHALATION ×3 (01:10→14:21)
[2023-07-09 03:22] LABS: Glucose Point of Care 97 mg/dl (65-105)
[2023-07-09] MEDS: guaiFENesin 200 MG/10 ML UDC 400 MG FEED TUBE ×2 (06:40→15:46)
[2023-07-09] MEDS: LEVOTHYROXINE SODIUM 25 MCG TABLET FEED TUBE (06:41)
[2023-07-09] MEDS: CENTRAL LINE FLUSH 10 ML IV PUSH (06:41)
[2023-07-09 07:24] LABS: Glucose Point of Care 105 mg/dl (65-105)
[2023-07-09 07:32] LABS: Anion Gap 2 mmol/L (8-16); Blood Urea Nitrogen 10 mg/dL (9-20); Carbon Dioxide 30 mmol/L (22-30); Chloride 102 mmol/L (98-107); Estimated CRCL calculation 178 ml/min; Estimated Glomerular Filt Rate > 60; Glucose 99 mg/dL (65-110); Sodium 134 mmol/L (137-145)
[2023-07-09 08:39] LABS: Glucose Point of Care 90 mg/dl (65-105)
[2023-07-09] MEDS: FOLIC ACID 1 MG TABLET FEED TUBE (09:05)
[2023-07-09] MEDS: FERROUS SULFATE LIQUID 325 MG/7.4 ML ELIXIR FEED TUBE (09:05)
[2023-07-09] MEDS: CYANOCOBALAMIN 1,000 MCG TABLET 1000 MCG FEED TUBE (09:05)
[2023-07-09] MEDS: THIAMINE HCL 100 MG TABLET FEED TUBE (09:05)
[2023-07-09] MEDS: PANTOPRAZOLE SODIUM IV 40 MG VIAL IV PUSH (09:05)
[2023-07-09] MEDS: ATORVASTATIN 40 MG TABLET FEED TUBE (09:05)
[2023-07-09] MEDS: CLOPIDOGREL BISULFATE 75 MG TABLET PO (09:05)
--- NOTE | 2023-07-09 10:42 | PM.DS ---
DS: Admitting Diagnosis Discharge Date 07/09/23 Admitting Diagnosis ams, luis DS: Discharge Diagnosis Discharge Diagnosis (1) Respiratory distress, acute: Code(s): R06.03 - Acute respiratory distress Status: Acute Assessment and Plan: Improved (2) AMS (altered mental status): Code(s): R41.82 - Altered mental status, unspecified Status: Acute Assessment and Plan: Likely related to chronic alcohol use. Improved overall. (3) Dysphagia: Code(s): R13.10 - Dysphagia, unspecified Status: Acute Assessment and Plan: PEG tube Continue tube feeds (4) Chronic anemia: Code(s): D64.9 - Anemia, unspecified Status: Acute Assessment and Plan: Monitor (5) Protein calorie malnutrition: Code(s): E46 - Unspecified protein-calorie malnutrition Status: Acute Assessment and Plan: Monitor now on TF PEG (6) Alcohol use disorder: Code(s): F10.90 - Alcohol use, unspecified, uncomplicated Status: Acute Assessment and Plan: Monitor. (7) Hypoglycemia: Code(s): E16.2 - Hypoglycemia, unspecified Status: Acute Assessment and Plan: Monitor. (8) Hypokalemia: Code(s): E87.6 - Hypokalemia Status: Acute Assessment and Plan: Replace as needed (9) Hyponatremia: Code(s): E87.1 - Hypo-osmolality and hyponatremia Status: Chronic Assessment and Plan: Secondary to excessive free water. Monitor electrolytes. (10) UTI (urinary tract infection): Code(s): N39.0 - Urinary tract infection, site not specified Status: Acute Assessment and Plan: Status post ertapenem -monitor (11) C. difficile colitis: Code(s): A04.72 - Enterocolitis due to Clostridium difficile, not specified as recurrent Status: Acute Assessment and Plan: Treated with oral vanc (12) LUIS (acute kidney injury): Code(s): N17.9 - Acute kidney failure, unspecified Status: Acute Assessment and Plan: Monitor kidney function and electrolytes. (13) Congestive heart failure: Code(s): I50.9 - Heart failure, unspecified Status: Acute Assessment and Plan: Lasix as needed. (14) Debility, unspecified: Code(s): R53.81 - Other malaise Status: Acute Assessment and Plan: Secondary to chronic alcohol use. (15) Conjunctivitis: Code(s): H10.9 - Unspecified conjunctivitis Status: Acute Assessment and Plan: Eye drops werer ordered. He has completed a course of treatment (16) Hypothyroidism: Code(s): E03.9 - Hypothyroidism, unspecified Status: Acute Assessment and Plan: TSH normal. Continue with levothyroxine Plan Awaiting placement. DS: Summary Hospital Course Hospital Course: Patient is a 58-year-old gentleman who has history of alcohol abuse. He was admitted for altered mental status and was found to have likely encephalopathy secondary to chronic alcohol abuse. Patient is unable to swallow was altered for several days ultimately had a PEG tube placed. He is currently echo looked tube feeds. Patient has significant debility. He is more alert waking up and answering questions appropriately. He is going to be [facility]. Time Spent with Patient Time attestation: Total time spent providing and/or coordinating discharge services: Exam Narrative: Chest - coarse BS anteriorly CV - regular, mild tachycardia. Tele showing 3b NSVT Abd - Soft, less tender, +BS - Ca secured draining clear, yellow urine Ext - mild diffuse UE/LE edema Neuro - eyes open. nonverbal. only occasionally acknowledges provider Skin - scant macupapular truncal rash. no mottling DS: Data Data Completed and Pending Completed studies during hospitalization: Pending at discharge 07/04/23 12:06 Surgical [PTH] Rout
--- NOTE | 2023-07-09 10:53 | PCNFU ---
Nutrition Follow-Up Complete: Severe Protein Calorie Malnutrition as related to inadequate protein-energy intake with increased protien energy needs in setting of chronic disease as evidenced by minimal oral intake for > 1 month and 2+pitting edema at bilateral upper elbows, feet and upper legs. Goal: Meet estimated nutritional needs Patient is meeting current goal. No new goal. Pt current nutrition is Glucerna 1.2 at 75 ml/hr Last recorded weight is 76 kg Bowel Motility:+BM reported 07/09-C diff positive Labs Reviewed:Cr 0.4,Na 134 Meds Noted:Synthroid, Folic Acid, B12, Protonix, Thiamine Skin:WNL Additional Notes: Patient is tolerating tube feedings of Glucerna 1.2 at 75 ml/hr. Tube feedings providing 1980 kcals/99 gms protein/1328 ml water. Flush 60 ml q 4 hours. Patient is meeting 100% kcal needs at 25 kcal/kg and 1.2-1.4 gm/kg protein. Banatrol Plus TF BID flushed for stool bulking. Agree with diet orders. Will monitor weight, labs, tube feeding tolerance, skin every Saturday and Saturday.
[2023-07-09 11:55] LABS: Glucose Point of Care 103 mg/dl (65-105)
[2023-07-09 12:40] LABS: SARS-CoV-2 RNA PCR Negative (Negative)
[2023-07-09 17:09] LABS: Glucose Point of Care 83 mg/dl (65-105)
== END 2023-07-09 17:36 | DRG 682 ==
LOC: ANHED 16:05 → ANHIMU 20:45 → ANHICU 06-21 17:27 → ANH2MED 06-23 22:20
PROVIDERS: Internal Medicine; Internal Medicine Gastroenterology; Nurse Practitioner; Student in an Organized Health Care Education/Training Program; Admitting Provider Family Medicine; Emergency Provider Emergency Medicine; PCP Hospitalist; Visit Provider Chiropractor
PROC: 0DH63UZ Insertion of Feeding Device into Stomach, Percutaneous Approach (ICD-10-PCS; CPT 43246; principal; 2023-07-04 11:30)
DX: N17.9 Acute kidney failure, unspecified (principal); E43 Unspecified severe protein-calorie malnutrition; J69.0 Pneumonitis due to inhalation of food and vomit; E87.1 Hypo-osmolality and hyponatremia; N39.0 Urinary tract infection, site not specified; I69.354 Hemiplegia and hemiparesis following cerebral infarction affecting left non-dominant side; I50.32 Chronic diastolic (congestive) heart failure; B96.20 Unspecified Escherichia coli [E. coli] as the cause of diseases classified elsewhere; G31.2 Degeneration of nervous system due to alcohol; R06.03 Acute respiratory distress; L53.8 Other specified erythematous conditions; T50.8X5A Adverse effect of diagnostic agents, initial encounter; H10.9 Unspecified conjunctivitis; E87.6 Hypokalemia; K29.60 Other gastritis without bleeding; E16.2 Hypoglycemia, unspecified; I11.0 Hypertensive heart disease with heart failure; F32.A Depression, unspecified; D63.8 Anemia in other chronic diseases classified elsewhere; R13.19 Other dysphagia; K21.9 Gastro-esophageal reflux disease without esophagitis; F10.20 Alcohol dependence, uncomplicated; E03.9 Hypothyroidism, unspecified; I69.320 Aphasia following cerebral infarction; Z68.22 Body mass index [BMI] 22.0-22.9, adult; Z86.16 Personal history of COVID-19
CPT/HCPCS: 36415; 36430; 36569; 36600; 43246; 70450; 70553; 71045; 74177; 76775; 80048; 80053; 80069; 80076; 80307; 81001; 82140; 82274; 82436; 82550; 82570; 82595; 82607; 82728; 82746; 82805; 82948; 83520; 83540; 83550; 83605; 83690; 83735; 83880; 83930; 83935; 84100; 84132; 84133; 84145; 84155; 84156; 84165; 84166; 84300; 84443; 84484; 85025; 85027; 85610; 85652; 85730; 85999; 86036; 86038; 86060; 86140; 86160; 86162; 86215; 86225; 86235; 86334; 86703; 86705; 86706; 86803; 86850; 86900; 86901; 86923; 87040; 87077; 87086; 87088; 87186; 87340; 87493; 87635; 88305; 92526; 92610; 92611; 93005; 94640; 94668; 94669; 96361; 96365; 96366; 96367; 96368; 96374; 99285; A9270; A9577; C1751; C9113; G0378; G0379; G0432; J0696; J1200; J1335; J1610; J1836; J1940; J2060; J2185; J2704; J2930; J2997; J3411; J3475; J3480; J7030; J7040; J7050; J7060; J7070; J7120; P9016; P9047; Q9967

== ENCOUNTER 2023-07-13 15:04 | Inpatient (IN) | payer MEDICARE, MEDICAID, SELFPAY ==
[2023-07-13] VITALS (11 sets, daily range): BP systolic 106–113; BP diastolic 66–79; PULSE 93–110; RESP 16–21; TEMP 37.1–37.4; O2SAT 96–100; BMI 18.8
--- NOTE | ~2023-07-13 | XR_ITS ---
This report was recreated on 07/15/23. Original report was signed by Jean Pierre Garcia M.D. on 07/14/23. EXAMINATION: XR ABDOMEN GASTRIC TUBE INSERT DATE: 07/14/2023 13:31 INDICATION: Gastrostomy tube placement. TECHNIQUE: A supine view of the abdomen was obtained after injection of the gastrostomy tube with contrast. COMPARISON: Abdomen radiograph 07/13/2023 FINDINGS: There are no dilated loops of bowel. The gastrostomy tube is in expected position in the body of the stomach. There is contrast in the tube and in the stomach. There is contrast in the distal colon. IMPRESSION: 1. Gastrostomy tube in expected position. Reviewed, dictated and finalized at location A. MTDD
--- NOTE | ~2023-07-13 | XR_ITS ---
EXAMINATION: [id number] INDICATION: Replaced G-tube TECHNIQUE: Supine view of the abdomen is obtained. 50 cc of water-soluble contrast were injected thro ugh the G-tube COMPARISON: None available FINDINGS: The G-tube is in the stomach. Injected contrast opacifies the stomach and duodenal bulb. Th e bowel gas pattern is normal. There are minimal airspace opacities of the lung bases. IMPRESSION: 1. G-tube in the stomach. Reviewed, dictated and finalized at location F. IMPRESSION: 1. G-tube in the stomach.
--- NOTE | ~2023-07-13 | CT_ITS ---
EXAMINATION: CT brain wo con INDICATION: Transient alteration of awareness COMPARISON: 06/20/2023; MRI, 06/28/2023 TECHNIQUE: Standard unenhanced head CT. The dose-length product (DLP) was 605.33 mGy-cm. The mA was a djusted according to patient size. Iterative reconstruction technique was employed. FINDINGS: There is no acute intraparenchymal hemorrhage. No evidence of mass lesion. No evidence of a cute infarction. There are areas of prior infarction in the left parieto-occipital region, left front oparietal region, in the right occipital lobe. There is moderate periventricular and subcortical hypo density probably related to small vessel ischemic disease. There is moderate prominence of the sulci and ventricles related to cerebral atrophy. Intracranial calcified cerebral atherosclerosis is noted. There are no extra-axial collections. There is no mass effect or midline shift. Changes in the globe s are likely from ocular lens surgery. There is mild mucosal thickening of the paranasal sinuses. IMPRESSION: 1. No acute intracranial abnormality. 2. Age related findings. Reviewed, dictated and finalized at location F.
--- NOTE | ~2023-07-13 | XR_ITS ---
EXAMINATION: [id number] INDICATION: G-tube placement TECHNIQUE: Supine view of the upper abdomen is obtained COMPARISON: None available FINDINGS: A gastrostomy tube projects in the stomach. Injected contrast material opacified the distal stomach and proximal duodenum. There are minimal airspace opacities of the lung bases. Contrast from G-tube injection is seen in the left colon. IMPRESSION: 1. G-tube in the stomach. Reviewed, dictated and finalized at location A. IMPRESSION: 1. G-tube in the stomach.
--- NOTE | ~2023-07-13 | CT_ITS ---
EXAMINATION: CT brain wo con INDICATION: Right arm hemiparesis COMPARISON: 07/14/2023 TECHNIQUE: Standard unenhanced head CT. The dose-length product (DLP) was 681.00 mGy-cm. The mA was a djusted according to patient size. Iterative reconstruction technique was employed. FINDINGS: No acute intraparenchymal hemorrhage. No evidence of mass lesion. No evidence of acute infa rction. There are areas of prior infarction in the left parietal occipital region, the left frontopar ietal region, the right occipital lobe, and the cerebellar hemispheres. Some areas are better demonst rated on today's examination with less motion artifact. There is moderate periventricular and subcort ical hypodensity probably related to small vessel ischemic disease. There is moderate prominence of t he sulci and ventricles related to cerebral atrophy. Intracranial calcified cerebral atherosclerosis is noted. No extra-axial collections. There is no mass effect or midline shift. Changes in the globes are likely from ocular lens surgery. The visualized sinuses and mastoid air cells are well aerated. IMPRESSION: 1. Areas of prior infarction without acute intracranial abnormality. 2. Age related findings. Reviewed, dictated and finalized at location A.
--- NOTE | ~2023-07-13 | XR_ITS ---
EXAMINATION: XR chest 1V portable DATE: 07/18/2023 06:43 INDICATION: Increased work of breathing. TECHNIQUE: A single frontal view of the chest was obtained. COMPARISON: Chest single view 06/30/2023, CT abdomen and pelvis 06/28/2023 FINDINGS: There are airspace opacities in all left lung zones. There are airspace opacities in right lung base. There is a moderate-sized left pleural effusion. No pneumothorax. The heart size is normal . IMPRESSION: 1. Airspace opacities in left lung and right lung base with worsening on the left and improvement on the right, consistent with atelectasis versus pneumonia. 2. Worsened moderate-sized left pleural effusion. Reviewed, dictated and finalized at location A. IMPRESSION: 1. Airspace opacities in left lung and right lung base with worsening on the le ft and improvement on the right, consistent with atelectasis versus pneumonia. 2. Worsened moderate-sized left pleural effusion.
--- NOTE | ~2023-07-13 | MR_ITS ---
EXAMINATION: MR brain/brain stem wo con DATE: 07/18/2023 08:21 INDICATION: Stroke. TECHNIQUE: Magnetic resonance imaging (MRI) of the brain and brainstem was performed without intraven ous contrast. COMPARISON: Brain MRI 06/28/2023, head CT 07/16/2023 FINDINGS: There is an old infarct in left parietal occipital region. There is an old infarct in right occipital lobe. There is an old infarct in left frontoparietal region. There are small old infarcts in the cerebellum bilaterally. There are scattered areas of nonspecific increased T2-weighted signal intensity in the cerebral white matter. There is no intracranial hemorrhage, acute infarction, or abn ormal intracranial mass lesion. The ventricles are normal in size. There is mild mucosal thickening i n the ethmoid sinuses. There are likely changes of ocular lens replacement surgeries. There is a trac e left mastoid effusion. IMPRESSION: 1. Multiple old infarcts in the brain. 2. Stable mild nonspecific cerebral white matter disease, which likely represents chronic small vesse l ischemic disease. Reviewed, dictated and finalized at location A. IMPRESSION: 1. Multiple old infarcts in the brain. 2. Stable mild nonspecific cerebral white matter disease, which likely represen ts chronic small vessel ischemic disease.
--- NOTE | 2023-07-13 15:36 | ED.GENADULT ---
HPI - General Adult General Chief complaint: Unspecified Stated complaint: pulled g-tube out Time Seen by Provider: 07/13/23 15:15 History of Present Illness HPI narrative: 58-year-old male presented the emergency department for evaluation of altered mental status and having his G-tube removed. 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 While at the correction facility patient did pull out his G-tube. Patient's sister states that the patient had an improved mental status prior to discharge from [place] but upon arrival to the [facility] patient has had a worsening of his mental status. Patient is unable to provide any history due to his altered mental status. Patient denies any pain or complaint. Related Data Home Medications Medication Instructions Recorded Confirmed levothyroxine 25 mcg tablet 25 mcg PO DAILY 07/27/21 06/20/23 megestrol 400 mg/10 mL (10 mL) 400 mg PO BID 08/26/21 06/20/23 oral suspension pantoprazole 40 mg granules 40 mg PO Q12H 08/26/21 06/20/23 delayed-release for susp in packet (Protonix) docusate sodium 100 mg capsule 100 mg PO Q12H 11/09/22 06/20/23 furosemide 40 mg tablet 40 mg PO DAILY 04/10/23 06/20/23 gabapentin 800 mg tablet 800 mg PO TID 04/10/23 06/20/23 ibuprofen 800 mg tablet 800 mg PO Q8-12H PRN Pain 04/10/23 06/20/23 lisinopril 20 mg tablet 20 mg PO DAILY 04/10/23 06/20/23 albuterol sulfate 2.5 mg/0.5 mL 2.5 mg inhalation Q6H PRN 06/20/23 06/20/23 solution for nebulization Shortness Of Breath duloxetine 60 mg capsule,delayed 60 mg PO DAILY 06/20/23 06/20/23 release tramadol 50 mg tablet 50 mg PO Q6H PRN Pain 06/20/23 06/20/23 Allergies Allergy/AdvReac Type Severity Reaction Status Date / Time amoxicillin Allergy Rash Verified 06/24/23 12:27 gadobenic acid AdvReac Difficulty Verified 06/29/23 14:32 [From contrast - MRI] Breathing iohexol AdvReac Difficulty Verified 06/29/23 14:32 [From contrast - CT, X-RAY] Breathing Review of Systems Review of Systems: All systems reviewed & are unremarkable except as noted in HPI and below PMFSH Past Medical History Medical History (Updated 07/13/23 @ 21:14 by Sam Yo MD) Acute GI bleeding Acute ischemic stroke Adult failure to thrive Alcohol dependence Aphasia Cerebrovascular accident With left-sided residual weakness. Chronic anemia Chronic hyponatremia Congestive heart failure Echocardiogram on 07/17/2021 showed normal LV chamber dimension and function with an estimated EF of 65 to 70% and grade 1 diastolic dysfunction with mild pulmonary hypertension estimated pulmonary arterial systolic pressure of 37 mmHg. Conjunctivitis COVID (08/2021) DVT prophylaxis Encephalopathy Erosive gastritis Gastroesophageal reflux disease Generalized weakness HCAP (healthcare-associated pneumonia) Hypertension Hypokalemia Hypokalemia Hypothyroidism Orthostatic hypotension Pneumonia Protein calorie malnutrition Rectal bleeding Sepsis Stroke Tobacco dependence Unwitnessed fall Urinary tract infection UTI (urinary tract infection) Surgical History Surgical History History of excision of testicular mass With benign histology. Family History Family History Father Chronic obstructive pulmonary disease Congestive heart failure Hypertension Mother Abdominal aortic aneurysm rupture Daughter Type 1 diabetes mellitus Social History Social History (Updated 06/21/23 @ 00:37 by Hannah Rogers NP) Social History: The patient lives with his brother The patient has 3 children. And is disabled. The patient states that he likes to drink whiskey and does not like to drink beer. The patient is single and unemployed Surrogate decision maker: Bere Gagnon, sister. Code status: F
--- NOTE | 2023-07-13 15:54 | PC.NURSE ---
pt taken to xray at this time
[2023-07-13 16:36] LABS: Basophils Absolute Auto 0.1 K/mm3 (0.0-0.1); Basophils Percent Auto 0.9 % (0.2-1.2); Eosinophils Absolute Auto 0.4 K/mm3 (0-0.3); Eosinophils Percent Auto 2.9 % (0-4.4); Hematocrit 23.3 % (42.0-52.0); Hemoglobin 7.4 g/dL (14.0-18.0); Immature Granulocyte Absolute 0.06 K/mm3 (0.00-0.031); Immature Granulocyte Percent A 0.5 % (0-0.5); Lymphocytes Absolute Auto 2.24 K/mm3 (0.9-3.2); Lymphocytes Percent Auto 17.9 % (18.3-44.2); Mean Corpuscular HGB Conc 31.8 g/dl (32-36); Mean Corpuscular Hemoglobin 31.9 pg (26-34); Mean Corpuscular Volume 100.4 fl (80-100); Mean Platelet Volume 8.6 fl (7.4-10.4); Monocytes Absolute Auto 1.9 K/mm3 (0.1-0.6); Monocytes Percent Auto 15.3 % (2.6-8.5); Neutrophils Absolute Auto 7.8 K/mm3 (1.3-6.7); Neutrophils Percent Auto 62.5 % (45.5-73.1); Platelet Count Result 801 k/mm3 (150-375); Red Blood Count 2.32 M/mm3 (4.6-6.20); Red Cell Distribution Width 17.1 % (11.5-14.5); White Blood Count 12.5 K/mm3 (4.5-10.0)
[2023-07-13 16:43] LABS: Ammonia < 9 umol/L (9-30)
[2023-07-13 16:47] LABS: Alanine Aminotransferase 13 U/L (6-50); Albumin Level 3.3 g/dL (3.5-5.1); Alkaline Phosphatase 82 U/L (38-126); Anion Gap 4 mmol/L (8-16); Aspartate Amino Transferase 28 U/L (17-59); Bilirubin,Total 0.7 mg/dL (0.2-1.3); Blood Urea Nitrogen 10 mg/dL (9-20); Calcium 8.6 mg/dL (8.4-10.2); Carbon Dioxide 34 mmol/L (22-30); Chloride 95 mmol/L (98-107); Estimated Glomerular Filt Rate > 60; Glucose 103 mg/dL (65-110); Potassium 4.3 mmol/L (3.4-5.0); Sodium 133 mmol/L (137-145)
[2023-07-13] MEDS: SODIUM CHLORIDE 0.9% IV 1,000 ML 999 ML IV CONT (16:53)
[2023-07-13 17:12] LABS: Influenza A QL RT-PCR Negative (Negative); Influenza B QL RT-PCR Negative (Negative); RSV RNA, RT-PCR Negative (Negative); SARS-CoV-2 RNA PCR Negative (Negative)
[2023-07-13 17:29] LABS: Appearance Urine Cloudy (Clear); Bacteria Urine 4+ /hpf; Bilirubin Urine Negative (Negative); Blood Urine 2+ (Negative); Budding Yeast Urine Present /hpf; Color Urine Yellow (Yellow); Glucose Urine UA Negative (Negative); Ketones Urine Negative (Negative); Leukocyte Esterase Ur 3+ LEU/UL (Negative); Nitrate Urine Positive (Negative); Protein Urine 1+ mg/dL (Negative); RBC Urine 21-50 /hpf (0-2); Specific Grav Ur 1.017 (1.001-1.035); Squamous Epithelial Cell Urine None seen /hpf (Few); WBC Urine >100 /hpf; pH Urine 7.5 (5.0-9.0)
[2023-07-13 17:33] LABS: Add Urine Microscopic? YES
--- NOTE | 2023-07-13 17:59 | PC.NURSE ---
Liya, pt sister & POA, called for update. Can be reached at [phone]
--- NOTE | 2023-07-13 18:56 | PM.IMHP ---
H&P: HPI History of Present Illness Date/Time: 07/13/23 18:56 Chief Complaint: Pulled out G-tube Narrative: This is a 58-year-old male patient who has a history of alcoholism. The patient was just discharged from here on 07/09/2023. Where the patient was noted to have a UTI and was placed on ertapenem. The patient was also known has C diff and was treated with oral vancomycin. The patient had a G-tube placed for failure to thrive. The patient had been discharged to [facility] facility. The patient return to the emergency room today because he pulled out his G-tube. It was also reported that the patient had altered mental status today. The ED provider did talk to his sister who stated that the patient's mental status improved prior to being discharged from [facility] on the . However today he is more lethargic and confused. The patient is also noted to have diarrhea. The patient had a G-tube replaced and had a confirmed physician with a KUB. Patient's Ca catheter was exchanged in the emergency room and patient was initially treated with Rocephin. However the patient has a history of esbl. He has been on ertapenem in the past. The patient was then switched to ertapenem look and given IV fluids. When I went to assess the patient in the emergency room he told me that he was not up to answering my questions today. The patient is being admitted to observation status on the date of service of 07/13/2023. Review of Systems Review of Systems: All systems reviewed & are unremarkable except as noted in HPI and below Constitutional: Constitutional: Reports as per HPI and Reports no additional constitutional complaints Eyes: Eyes: Reports as per HPI and Reports no additional eye complaints ENT: Reports system reviewed and no additional complaints, except as documented and Reports Normal hearing present Cardiovascular: Cardiovascular: Reports no additional cardiovascular complaints Respiratory: Respiratory: Reports no additional respiratory complaints and Reports no additional respiratory complaints Gastrointestinal: Gastrointestinal: Reports as per HPI and Reports no additional gastrointestinal complaints Musculoskeletal: Musculoskeletal: Reports no additional musculoskeletal complaints Integumentary/Breasts: Skin/Breast: Reports system reviewed and no additional complaints, except as docu and Reports as per HPI Neurologic: Reports system reviewed and no additional complaints, except as documented, Reports as per HPI and Reports Normal hearing present Psychiatric: Psychiatric: Reports no additional psychiatric complaints and Reports as per HPI Endocrine: Endocrine: Reports no additional endocrine complaints Hematologic/Lymphatic: Hematologic/Lymphatic: Reports no additional hematologic/lymphatic complaints Allergic/Immunologic: Allergic/Immunologic: Reports no additional allergic/immunologic complaints [facility] Past Medical History Medical History Acute GI bleeding Acute ischemic stroke Adult failure to thrive Alcohol dependence Aphasia Cerebrovascular accident With left-sided residual weakness. Chronic anemia Chronic hyponatremia Congestive heart failure Echocardiogram on 07/17/2021 showed normal LV chamber dimension and function with an estimated EF of 65 to 70% and grade 1 diastolic dysfunction with mild pulmonary hypertension estimated pulmonary arterial systolic pressure of 37 mmHg. Conjunctivitis COVID (08/2021) DVT prophylaxis Encephalopathy Erosive gastritis Gastroesophageal reflux disease Generalized weakness HCAP (healthcare-associated pneumonia) Hypertension Hypokalemia Hypokalemia Hypothyroidism Orthostatic hypotension Pneumonia Protein calorie malnutrition Rectal bleeding Sepsis Stroke Tobacco dependence Unwitnessed fall Urinary tract infection UTI (urinary tract infection) Surgical History Surgical History (Reviewed 07/13/23 @ 22:
--- NOTE | 2023-07-13 19:35 | PC.NURSE ---
assumed care. pt incontinent of stool. pepe care and linen changed. pt A&Ox1 at this time. pt in no distress. will continue to monitor.
[2023-07-13] MEDS: ERTAPENEM 1 GM/NS 50 ML 1 GM/50 ML BAG IVPB (20:19)
--- NOTE | 2023-07-13 21:00 | ADMGEN ---
This patient, Simon Barraza, was admitted to IMU Room 205-02. Patient/family oriented to hospital policies and general routines including ID bracelet, bed and alarms, visiting hours, pain management, procedures, bathroom and other care routines, personal items, smoking policy, room service/diet, and visiting hours. Information on how to activate the Rapid Response Team has been discussed. Patient/Family are encouraged to report perceived risks to care and to ask questions if they do not understand what they are told or what they should do.
--- NOTE | 2023-07-13 21:05 | ADMGEN ---
This patient, Simon Barraza, was admitted to IMU Room 205-02. Patient unable to be oriented to hospital policies and general routines due to altered mental status. Patient/Family are encouraged to report perceived risks to care and to ask questions if they do not understand what they are told or what they should do.
[2023-07-13] MEDS: SODIUM CHLORIDE 0.9% IV 1,000 ML 125 ML IV CONT (21:57)
[2023-07-13 23:45] LABS: Hematocrit 22.8 % (42.0-52.0); Hemoglobin 7.1 g/dL (14.0-18.0)
[2023-07-14] VITALS (12 sets, daily range): BP systolic 114–141; BP diastolic 68–81; PULSE 63–106; RESP 16–20; TEMP 36.2–37.7; O2SAT 91–100
[2023-07-14 01:29] LABS: Toxigenic C. Diff POSITIVE (NEGATIVE)
[2023-07-14 05:39] LABS: Basophils Absolute Auto 0.1 K/mm3 (0.0-0.1); Basophils Percent Auto 0.8 % (0.2-1.2); Eosinophils Absolute Auto 0.3 K/mm3 (0-0.3); Eosinophils Percent Auto 2.6 % (0-4.4); Hematocrit 23.3 % (42.0-52.0); Hemoglobin 7.3 g/dL (14.0-18.0); Immature Granulocyte Absolute 0.06 K/mm3 (0.00-0.031); Immature Granulocyte Percent A 0.5 % (0-0.5); Lymphocytes Absolute Auto 2.12 K/mm3 (0.9-3.2); Lymphocytes Percent Auto 17.5 % (18.3-44.2); Mean Corpuscular HGB Conc 31.3 g/dl (32-36); Mean Corpuscular Hemoglobin 31.6 pg (26-34); Mean Corpuscular Volume 100.9 fl (80-100); Mean Platelet Volume 8.6 fl (7.4-10.4); Monocytes Absolute Auto 1.7 K/mm3 (0.1-0.6); Monocytes Percent Auto 13.7 % (2.6-8.5); Neutrophils Absolute Auto 7.9 K/mm3 (1.3-6.7); Neutrophils Percent Auto 64.9 % (45.5-73.1); Platelet Count Result 816 k/mm3 (150-375); Red Blood Count 2.31 M/mm3 (4.6-6.20); Red Cell Distribution Width 17.2 % (11.5-14.5); White Blood Count 12.1 K/mm3 (4.5-10.0)
[2023-07-14 06:04] LABS: Alanine Aminotransferase 13 U/L (6-50); Albumin Level 3.3 g/dL (3.5-5.1); Alkaline Phosphatase 70 U/L (38-126); Anion Gap 2 mmol/L (8-16); Aspartate Amino Transferase 31 U/L (17-59); Bilirubin,Total 0.7 mg/dL (0.2-1.3); Blood Urea Nitrogen 10 mg/dL (9-20); Calcium 8.7 mg/dL (8.4-10.2); Carbon Dioxide 33 mmol/L (22-30); Chloride 99 mmol/L (98-107); Estimated CRCL calculation 148 ml/min; Estimated Glomerular Filt Rate > 60; Glucose 109 mg/dL (65-110); Sodium 134 mmol/L (137-145)
[2023-07-14] MEDS: LEVOTHYROXINE SODIUM 25 MCG TABLET FEED TUBE (06:15)
[2023-07-14] MEDS: SODIUM CHLORIDE 0.9% IV 1,000 ML 125 ML IV CONT ×2 (06:16→14:29)
[2023-07-14] MEDS: LANSOPRAZOLE ORAL SUSP 30 MG/10 ML ORAL.SUSP FEED TUBE (06:16)
[2023-07-14] MEDS: VANCOMYCIN ORAL 125 MG/2.5 ML SYRUP FEED TUBE ×4 (06:16→23:57)
--- NOTE | 2023-07-14 06:55 | PC.NURSE ---
Inserted 16fr hubbard catheter into g-tube site
[2023-07-14 10:46] LABS: Hematocrit 21.6 % (42.0-52.0)
[2023-07-14 10:57] LABS: Hemoglobin 6.8 g/dL (14.0-18.0)
--- NOTE | 2023-07-14 11:03 | WPDGICN ---
Assessment and Plan Assessment and plan (1) PEG (percutaneous endoscopic gastrostomy) status: Code(s): Z93.1 - Gastrostomy status Status: Acute Assessment and Plan: PEG tube which was placed on 07/04/2023. Only 9 days ago. Has now been replaced with Ca catheter. Documented to be in good position by imaging studies. At this point it was rather risky to change this PEG tube. As the colocutaneous fistula may not of completely feet healed. Would recommend starting tube feedings with Ca catheter in place. Okay continue to monitor. Perhaps a can be changed over a guidewire later this week. Will ask Dr. Elizabeth to follow up when he returns to service tomorrow. (2) Cerebrovascular accident: Code(s): I63.9 - Cerebral infarction, unspecified Status: Acute (3) Aphasia: Code(s): R47.01 - Aphasia Status: Acute (4) Dysphagia: Code(s): R13.10 - Dysphagia, unspecified Status: Acute (5) Alcohol use disorder: Code(s): F10.90 - Alcohol use, unspecified, uncomplicated Status: Acute GI Consult Note Consult date/time: 07/14/23 11:03 Reason for consult: displaced PEG tube. HPI: Simon Barraza is a 58 year old male I am asked to see because PEG tube in place became dislodged and was replaced in the emergency room. Patient currently has a Ca catheter in place of normal PEG tube in the G-tube, Gastric cutaneous fistula. Patient has a history of a CVA. He has a history of alcoholism. Patient in the hospital recently PEG tube was placed on 07/04/2023 and discharged on 07/09/2023. Only home a few days in the correction when PEG tube became displaced. Patient presented to the emergency room where G-tube was replaced with Ca catheter. This was identified to be in the body of the stomach by imaging studies. Patient currently unable to give any additional useful history. Review of Systems Review of Systems: ROS unobtainable: Yes unobtainable due to mental status PMFSH Past Medical History Medical History Acute GI bleeding Acute ischemic stroke Adult failure to thrive Alcohol dependence Aphasia Cerebrovascular accident With left-sided residual weakness. Chronic anemia Chronic hyponatremia Congestive heart failure Echocardiogram on 07/17/2021 showed normal LV chamber dimension and function with an estimated EF of 65 to 70% and grade 1 diastolic dysfunction with mild pulmonary hypertension estimated pulmonary arterial systolic pressure of 37 mmHg. Conjunctivitis COVID (08/2021) DVT prophylaxis Encephalopathy Erosive gastritis Gastroesophageal reflux disease Generalized weakness HCAP (healthcare-associated pneumonia) Hypertension Hypokalemia Hypokalemia Hypothyroidism Orthostatic hypotension Pneumonia Protein calorie malnutrition Rectal bleeding Sepsis Stroke Tobacco dependence Unwitnessed fall Urinary tract infection UTI (urinary tract infection) Surgical History Surgical History History of excision of testicular mass With benign histology. Family History Family History Father Chronic obstructive pulmonary disease Congestive heart failure Hypertension Mother Abdominal aortic aneurysm rupture Daughter Type 1 diabetes mellitus Social History Social History Social History: The patient lives with his brother The patient has 3 children. And is disabled. The patient states that he likes to drink whiskey and does not like to drink beer. The patient is single and unemployed Surrogate decision maker: Bere Gisselletipkaty, sister. Code status: Full code. Smoking packs per day: 1 Smoking cigarettes per day: 20.0 Years smoked: 21 Smoking pack-years: 21.00 Smoking status: Unknown if
[2023-07-14 13:14] LABS: Hematocrit 23.1 % (42.0-52.0); Hemoglobin 7.1 g/dL (14.0-18.0)
--- NOTE | 2023-07-14 14:23 | PM.IMPN ---
Progress Note: A&P Assessment and Plan (1) AMS (altered mental status): Code(s): R41.82 - Altered mental status, unspecified Status: Acute Assessment and Plan: Patient sent to the ED for AMS. Sister states patient has had improved mental status at times. Could be related to the UTI. Will check CT brain to assess for possible recurrent CVA. (2) UTI (urinary tract infection): Code(s): N39.0 - Urinary tract infection, site not specified Status: Acute Assessment and Plan: UA noted with budding yeast. The patient has a history of ESBL. Patient's Ca catheter was exchanged in the emergency room. The patient was started on ertapenem. UCx pending. BCx NGTD. Continue IV abx. (3) PEG (percutaneous endoscopic gastrostomy) status: Code(s): Z93.1 - Gastrostomy status Status: Acute Assessment and Plan: Patient pulled out his GTube at the [facility] and a Ca was inserted in the ED. This also was removed by the patient and again replaced this morning. Imaging shows that the GTube is in the correct location. GI consulted. Replace GTube tomorrow. NPO after midnight. Okay to start TF for today. (4) Anemia: Code(s): D64.9 - Anemia, unspecified Status: Acute Assessment and Plan: His Hgb is 7.4 on admission. This is lower than his baseline. Continue serial HH and transfuse as needed. The patient has chronic anemia most likely secondary to his alcoholism. (5) Hyponatremia: Code(s): E87.1 - Hypo-osmolality and hyponatremia Status: Chronic Assessment and Plan: Patient has a sodium of 133 which is at his baseline. Continue to follow. Contineu NaCl tabs (6) CHF (congestive heart failure): Code(s): I50.9 - Heart failure, unspecified Status: Acute Assessment and Plan: Echo in Jun 2021 showing EF 65/70% with Grade I diastolic dysfunction. Continue Lasix (7) Seizure: Code(s): R56.9 - Unspecified convulsions Status: Acute Assessment and Plan: he has a hx of seizures but not on anti-epileptic medications. Seizure related to alcohol w/d seizures? Occult seizures causing mental status changes? Continue to follow. (8) C. difficile colitis: Code(s): A04.72 - Enterocolitis due to Clostridium difficile, not specified as recurrent Status: Acute Assessment and Plan: Patient was CDiff toxin positive on 06/21 treated with oral Vanco. The patient is also noted to have diarrhea this admission. Repeat CDiff toxin again positive. No significant abd pain so hold on repeating CT abd. Vanco resumed.?Monitor stool frequency. Plan Thrombocytosis -platelet count 800K possibly acute phase reactant related to the C diff colitis and/or UTI. Continue to follow. Subjective Date/time seen: 07/14/23 14:23 Interval history: 58yo male with alcoholism, CHF, CVA with left sided weakness and HTN here for AMS and self-removal of his GTube. Patient is somnolent. He has garbled speech. History is unable to obtain accurately at this time. Review of Systems Review of Systems: ROS unobtainable: Yes unobtainable due to mental status Exam Narrative: AF ? 97.4 123/76 97 20 93% 2L Gen - thin, chronically ill appearing male in NARD Chest - clear anteriorly to quiet respirations, nml RR CV - RRR S1/S2. Tele showing occas sinus arrhythmias and STach Abd - soft, mid abd dressing clean/dry/intact with Ca tube secured at GTube site. - Ca secured draining orange-yellow urine Ext - no LE edema. 2+ DP bilaterally Neuro - eyes open. garbled speech. Skin - warma nd dry Objective Data Vital Signs Vital Signs: Vital Signs - 24 hr 07/13/23 15:03 07/13/23 16:30 07/13/23 17:53 Temperature 98.7 F Pulse Rate 104 H 100 110 H Respiratory Rate 16 16 Blood Pressure 106/66 113/76 Pulse Oximetry 96 100 Oxygen Delivery Nasal Cannula Oxygen Flow Rate 2 07/13/23 19:45 07/13/23 19:4
[2023-07-14] MEDS: DULoxetine HCL 60 MG CAPSULE.DR PO (14:31)
[2023-07-14] MEDS: FOLIC ACID 1 MG TABLET FEED TUBE (14:31)
[2023-07-14] MEDS: CLOPIDOGREL BISULFATE 75 MG TABLET FEED TUBE (14:31)
[2023-07-14] MEDS: CYANOCOBALAMIN 1,000 MCG TABLET 1000 MCG PO (14:32)
[2023-07-14] MEDS: FERROUS SULFATE LIQUID 325 MG/7.4 ML ELIXIR 324 MG FEED TUBE (14:32)
[2023-07-14] MEDS: FUROSEMIDE 40 MG TABLET FEED TUBE (14:32)
[2023-07-14] MEDS: lisinopriL 20 MG TABLET FEED TUBE (14:33)
[2023-07-14] MEDS: SODIUM CHLORIDE 1 GM TABLET FEED TUBE ×2 (14:34→17:02)
[2023-07-14] MEDS: GABAPENTIN 400 MG CAPSULE 800 MG FEED TUBE ×2 (14:35→17:01)
[2023-07-14] MEDS: ERTAPENEM 1 GM/NS 50 ML 1 GM/50 ML BAG IVPB (17:02)
[2023-07-14 17:50] LABS: Hematocrit 22.7 % (42.0-52.0); Hemoglobin 7.1 g/dL (14.0-18.0)
[2023-07-15] VITALS (18 sets, daily range): BP systolic 124–147; BP diastolic 68–91; PULSE 87–106; RESP 18–26; TEMP 36.3–38; O2SAT 93–98; BMI 18.8
[2023-07-15 00:07] LABS: Hematocrit 21.5 % (42.0-52.0)
[2023-07-15 00:13] LABS: Hemoglobin 6.7 g/dL (14.0-18.0)
[2023-07-15] MEDS: SODIUM CHLORIDE 0.9% IV 1,000 ML 70 ML IV CONT ×2 (03:51→10:49)
[2023-07-15] MEDS: SODIUM CHLORIDE 0.9% IV 250 ML 30 ML IV CONT (03:52)
[2023-07-15] MEDS: TUBING, BLOOD PLUM PUMP TUBING 1 EACH XX (04:53)
[2023-07-15] MEDS: LEVOTHYROXINE SODIUM 25 MCG TABLET FEED TUBE (06:52)
[2023-07-15] MEDS: VANCOMYCIN ORAL 125 MG/2.5 ML SYRUP FEED TUBE ×4 (06:52→23:52)
[2023-07-15] MEDS: LANSOPRAZOLE ORAL SUSP 30 MG/10 ML ORAL.SUSP FEED TUBE (06:52)
[2023-07-15] MEDS: CLOPIDOGREL BISULFATE 75 MG TABLET FEED TUBE (09:50)
[2023-07-15] MEDS: GABAPENTIN 400 MG CAPSULE 800 MG FEED TUBE ×2 (09:54→16:55)
[2023-07-15] MEDS: SODIUM CHLORIDE 1 GM TABLET FEED TUBE ×2 (09:54→16:56)
[2023-07-15] MEDS: FUROSEMIDE 40 MG TABLET FEED TUBE (09:54)
[2023-07-15] MEDS: lisinopriL 20 MG TABLET FEED TUBE (09:54)
[2023-07-15] MEDS: CYANOCOBALAMIN 1,000 MCG TABLET 1000 MCG PO (09:55)
[2023-07-15] MEDS: FOLIC ACID 1 MG TABLET FEED TUBE (09:55)
[2023-07-15] MEDS: DULoxetine HCL 60 MG CAPSULE.DR PO (09:55)
[2023-07-15] MEDS: FERROUS SULFATE LIQUID 325 MG/7.4 ML ELIXIR 324 MG FEED TUBE (10:49)
--- NOTE | 2023-07-15 13:22 | WPDGIPROGNO ---
Progress Note: A&P Assessment and Plan (1) Dislodged gastrostomy tube: Code(s): T85.528A - Displacement of other gastrointestinal prosthetic devices, implants and grafts, initial encounter Status: Acute Assessment and Plan: will assess if we could place 18 Fr G-tube, if unable then we need to replace hubbard endoscopically with guidewire (2) Encephalopathy: Code(s): G93.40 - Encephalopathy, unspecified Status: Acute (3) C. difficile colitis: Code(s): A04.72 - Enterocolitis due to Clostridium difficile, not specified as recurrent Status: Acute Assessment and Plan: on isolation and on treatment (4) Protein calorie malnutrition: Code(s): E46 - Unspecified protein-calorie malnutrition Status: Acute Assessment and Plan: start feeding once we can replace g-tube (5) Alcohol dependence: Code(s): F10.20 - Alcohol dependence, uncomplicated Status: Acute (6) Chronic anemia: Code(s): D64.9 - Anemia, unspecified Status: Acute Assessment and Plan: monitor multifactorial Subjective Date/time seen: 07/15/23 13:22 Interval history: can not get much from patient, lethargic hubbard catheter in place (gastrostomy site) Review of Systems Review of Systems: ROS unobtainable: Yes unobtainable due to mental status Exam Narrative: Gen - thin, chronically ill appearing male in NARD Chest - clear anteriorly to quiet respirations, nml RR CV - RRR S1/S2. Abd - soft, dressing clean/dry/intact with Hubbard tube secured at GTube site. - Hubbard secured draining orange-yellow urine Ext - no LE edema. 2+ DP bilaterally Neuro - eyes open. garbled speech. Skin - warma nd dry Objective Data Vital Signs Vital Signs: Vital Signs - 24 hr 07/14/23 14:00 07/14/23 16:00 07/14/23 16:00 Temperature 97.7 F Pulse Rate 94 106 H 102 H Respiratory Rate 16 Blood Pressure 141/81 H Pulse Oximetry 95 95 Oxygen Delivery Nasal Cannula Oxygen Flow Rate 2 07/14/23 16:00 07/14/23 18:00 07/14/23 20:00 Temperature 99.1 F Pulse Rate 102 H 102 H 99 Respiratory Rate 18 Blood Pressure 114/71 Pulse Oximetry 98 Oxygen Delivery Oxygen Flow Rate 07/14/23 20:00 07/14/23 20:00 07/15/23 00:00 Temperature 97.7 F Pulse Rate 96 104 H Respiratory Rate 20 Blood Pressure 136/71 Pulse Oximetry 98 98 Oxygen Delivery Nasal Cannula Oxygen Flow Rate 3 07/15/23 00:00 07/15/23 00:00 07/14/23 22:00 Temperature Pulse Rate 98 97 Respiratory Rate Blood Pressure Pulse Oximetry Oxygen Delivery Room Air Oxygen Flow Rate 07/15/23 04:30 07/15/23 04:46 07/15/23 04:00 Temperature 100.0 F H 99.5 F Pulse Rate 97 93 Respiratory Rate 18 18 Blood Pressure 127/80 126/81 Pulse Oximetry 93 94 Oxygen Delivery Room Air Oxygen Flow Rate 07/15/23 02:00 07/15/23 04:00 07/15/23 05:46 Temperature 99.0 F Pulse Rate 106 H 98 97 Respiratory Rate 20 Blood Pressure 126/83 Pulse Oximetry 94 Oxygen Delivery Oxygen Flow Rate 07/15/23 05:46 07/15/23 06:46 07/15/23 06:00 Temperature 99.0 F 98.7 F Pulse Rate 97 95 99 Respiratory Rate 20 20 Blood Pressure 126/83 124/80 Pulse Oximetry 94 96 Oxygen Delivery Oxygen Flow Rate 07/15/23 08:00 07/15/23 08:00 07/15/23 07:45 Temperature 100.4 F H 100.4 F H Pulse Rate 99 101 H 99 Respiratory Rate 22 H 22 H Blood Pressure 128/82 128/82 Pulse Oximetry 96 96 Oxygen Delivery Oxygen Flow Rate 07/15/23 12:00 Temperature 99.4 F Pulse Rate 98 Respiratory Rate 18 Blood Pressure 138/83 Pulse Oximetry 96 Oxygen Delivery Oxygen Flow Rate Intake/Output Intake/Output: Intake & Output 07/12/23 07/13/23 07/14/23 07/15/23 23:59 23:59 23:59 23:59 Intake Total 1100 2194 2675 Output Total 800 500 Balance 1100 1394 2175 Meds/Results Medications: Active Medications Generic Name Dose Route Star
[2023-07-15 14:32] LABS: Basophils Absolute Auto 0.1 K/mm3 (0.0-0.1); Basophils Percent Auto 1.3 % (0.2-1.2); Eosinophils Absolute Auto 0.3 K/mm3 (0-0.3); Eosinophils Percent Auto 2.6 % (0-4.4); Hematocrit 25.4 % (42.0-52.0); Immature Granulocyte Absolute 0.05 K/mm3 (0.00-0.031); Immature Granulocyte Percent A 0.5 % (0-0.5); Lymphocytes Absolute Auto 2.21 K/mm3 (0.9-3.2); Lymphocytes Percent Auto 21.1 % (18.3-44.2); Mean Corpuscular HGB Conc 31.5 g/dl (32-36); Mean Corpuscular Hemoglobin 31.4 pg (26-34); Mean Corpuscular Volume 99.6 fl (80-100); Mean Platelet Volume 8.4 fl (7.4-10.4); Monocytes Absolute Auto 1.4 K/mm3 (0.1-0.6); Monocytes Percent Auto 13.1 % (2.6-8.5); Neutrophils Absolute Auto 6.4 K/mm3 (1.3-6.7); Neutrophils Percent Auto 61.4 % (45.5-73.1); Platelet Count Result 765 k/mm3 (150-375); Red Blood Count 2.55 M/mm3 (4.6-6.20); Red Cell Distribution Width 17.4 % (11.5-14.5); White Blood Count 10.5 K/mm3 (4.5-10.0)
[2023-07-15 14:45] LABS: Albumin Level 3.3 g/dL (3.5-5.1); Anion Gap 8 mmol/L (8-16); Blood Urea Nitrogen 7 mg/dL (9-20); Calcium 8.4 mg/dL (8.4-10.2); Carbon Dioxide 26 mmol/L (22-30); Chloride 103 mmol/L (98-107); Estimated CRCL calculation 188 ml/min; Estimated Glomerular Filt Rate > 60; Glucose 97 mg/dL (65-110); Magnesium 1.8 mg/dL (1.6-2.3); Phosphorus 3.2 mg/dL (2.5-4.5); Potassium 3.4 mmol/L (3.4-5.0); Sodium 137 mmol/L (137-145)
--- NOTE | 2023-07-15 15:12 | PM.IMPN ---
Progress Note: A&P Assessment and Plan (1) AMS (altered mental status): Code(s): R41.82 - Altered mental status, unspecified Status: Acute Assessment and Plan: Patient sent to the ED for AMS. Sister states patient has had improved mental status at times. CT brain no acute findings. AMS could be related to the UTI. Suspect patient has chronic fluctuating mental status changes. he was on Oren 100mg TID in November but 800mg TID in March. Oren side effects? Check EEG. Decrease Oren dosing. (2) UTI (urinary tract infection): Code(s): N39.0 - Urinary tract infection, site not specified Status: Acute Assessment and Plan: UA noted with budding yeast. The patient has a history of ESBL. Patient's Ca catheter was exchanged in the emergency room. The patient was started on ertapenem. UCx pending. BCx NGTD. Stool studies pending. Continue IV abx. (3) PEG (percutaneous endoscopic gastrostomy) status: Code(s): Z93.1 - Gastrostomy status Status: Acute Assessment and Plan: Patient pulled out his GTube at the [facility] and a Ca was inserted in the ED. This again was removed by the patient and again replaced with a Ca. GI consulted. GTube was replaced at bedside. Binder ordered. Okay to start TF for today. (4) Anemia: Code(s): D64.9 - Anemia, unspecified Status: Acute Assessment and Plan: His Hgb is 7.4 on admission. This is lower than his baseline. Serial HH with Hgb dropping to 6.7 and transfusion ordered. The patient has chronic anemia most likely secondary to his alcoholism. (5) Hyponatremia: Code(s): E87.1 - Hypo-osmolality and hyponatremia Status: Chronic Assessment and Plan: Patient has a sodium of 133 which is at his baseline. Continue to follow. Continue NaCl tabs (6) CHF (congestive heart failure): Code(s): I50.9 - Heart failure, unspecified Status: Acute Assessment and Plan: Echo in Jun 2021 showing EF 65-70% with Grade I diastolic dysfunction. Continue Lasix (7) Seizure: Code(s): R56.9 - Unspecified convulsions Status: Acute Assessment and Plan: He has a hx of seizures but not on anti-epileptic medications. Seizure related to alcohol w/d seizures? Occult seizures causing mental status changes? Continue to follow. Check EEG. (8) C. difficile colitis: Code(s): A04.72 - Enterocolitis due to Clostridium difficile, not specified as recurrent Status: Acute Assessment and Plan: Patient was CDiff toxin positive on 06/21 treated with oral Vanco. The patient is also noted to have diarrhea this admission. Repeat CDiff toxin again positive. No significant abd pain so hold on repeating CT abd. Vanco resumed.?Monitor stool frequency. Plan Thrombocytosis - platelet count 800K possibly acute phase reactant related to the C diff colitis and/or UTI. Continue to follow. Subjective Date/time seen: 07/15/23 15:12 Interval history: 58yo male with alcoholism, CHF, CVA with left sided weakness and HTN here for AMS and self-removal of his GTube. He is alert but confused and unable to provide history. GTube replace. Review of Systems Review of Systems: ROS unobtainable: Yes unobtainable due to mental status Exam Narrative: Tm 100.4 99.4 138/83 98 18 96% 2L Gen - thin, chronically ill appearing male in NARD Chest - clear anteriorly to quiet respirations, nml RR CV - RRR S1/S2. Tele showing one episode of probably MAT Abd - soft, mid abd dressing clean/dry/intact - Ca secured draining yellow urine Ext - no LE edema. 2+ DP bilaterally Neuro - eyes open. garbled speech. Skin - warm and dry Patient was able to mumble a few words. When shifted in bed, he developed blinking and sputtering and did not respond to voice but returned to baseline in <30 sec. No rigid extremities Objective Data Vital Signs Vital Signs: Vital Signs - 24 hr 07/14/23 16:0
[2023-07-15] MEDS: MAGNESIUM SULF 2 GM/WATER 50ML 2 GM/50 ML BAG IVPB (17:33)
[2023-07-15] MEDS: ERTAPENEM 1 GM/NS 50 ML 1 GM/50 ML BAG IVPB (17:34)
[2023-07-15] MEDS: POTASSIUM CHLORIDE 20 MEQ PACKET (FOR LIQUID) 40 MEQ PO (18:52)
[2023-07-16] VITALS (14 sets, daily range): BP systolic 117–150; BP diastolic 61–98; PULSE 80–108; RESP 16–20; TEMP 36.5–38.2; O2SAT 96–100
[2023-07-16] MEDS: SODIUM CHLORIDE 0.9% IV 1,000 ML 70 ML IV CONT (01:10)
[2023-07-16 05:03] LABS: Basophils Absolute Auto 0.1 K/mm3 (0.0-0.1); Basophils Percent Auto 1.2 % (0.2-1.2); Eosinophils Absolute Auto 0.5 K/mm3 (0-0.3); Eosinophils Percent Auto 4.1 % (0-4.4); Hematocrit 28.8 % (42.0-52.0); Immature Granulocyte Absolute 0.07 K/mm3 (0.00-0.031); Immature Granulocyte Percent A 0.6 % (0-0.5); Lymphocytes Absolute Auto 1.81 K/mm3 (0.9-3.2); Lymphocytes Percent Auto 16.7 % (18.3-44.2); Mean Corpuscular HGB Conc 31.3 g/dl (32-36); Mean Corpuscular Hemoglobin 31.6 pg (26-34); Mean Corpuscular Volume 101.1 fl (80-100); Mean Platelet Volume 8.8 fl (7.4-10.4); Monocytes Absolute Auto 1.7 K/mm3 (0.1-0.6); Monocytes Percent Auto 15.6 % (2.6-8.5); Neutrophils Absolute Auto 6.7 K/mm3 (1.3-6.7); Neutrophils Percent Auto 61.8 % (45.5-73.1); Platelet Count Result 793 k/mm3 (150-375); Red Blood Count 2.85 M/mm3 (4.6-6.20); Red Cell Distribution Width 17.2 % (11.5-14.5); White Blood Count 10.9 K/mm3 (4.5-10.0)
[2023-07-16 05:15] LABS: Albumin Level 3.3 g/dL (3.5-5.1); Anion Gap 5 mmol/L (8-16); Blood Urea Nitrogen 8 mg/dL (9-20); Calcium 8.2 mg/dL (8.4-10.2); Carbon Dioxide 27 mmol/L (22-30); Chloride 105 mmol/L (98-107); Estimated CRCL calculation 188 ml/min; Estimated Glomerular Filt Rate > 60; Glucose 125 mg/dL (65-110); Magnesium 2.2 mg/dL (1.6-2.3); Phosphorus 3.4 mg/dL (2.5-4.5); Potassium 3.5 mmol/L (3.4-5.0); Sodium 137 mmol/L (137-145)
[2023-07-16] MEDS: LEVOTHYROXINE SODIUM 25 MCG TABLET FEED TUBE (06:05)
[2023-07-16] MEDS: LANSOPRAZOLE ORAL SUSP 30 MG/10 ML ORAL.SUSP FEED TUBE (06:05)
[2023-07-16] MEDS: VANCOMYCIN ORAL 125 MG/2.5 ML SYRUP FEED TUBE ×4 (06:05→23:25)
[2023-07-16] MEDS: SODIUM CHLORIDE 1 GM TABLET FEED TUBE ×2 (08:49→18:32)
[2023-07-16] MEDS: lisinopriL 20 MG TABLET FEED TUBE (08:49)
[2023-07-16] MEDS: FOLIC ACID 1 MG TABLET FEED TUBE (08:49)
[2023-07-16] MEDS: CYANOCOBALAMIN 1,000 MCG TABLET 1000 MCG PO (08:49)
[2023-07-16] MEDS: DULoxetine HCL 60 MG CAPSULE.DR PO (08:49)
[2023-07-16] MEDS: FUROSEMIDE 40 MG TABLET FEED TUBE (08:49)
[2023-07-16] MEDS: CLOPIDOGREL BISULFATE 75 MG TABLET FEED TUBE (08:49)
[2023-07-16] MEDS: GABAPENTIN 300 MG CAPSULE 600 MG FEED TUBE ×3 (08:49→18:32)
[2023-07-16] MEDS: ENOXAPARIN 40 MG/0.4 ML SYRINGE SUB-Q (08:50)
[2023-07-16] MEDS: FERROUS SULFATE LIQUID 325 MG/7.4 ML ELIXIR 324 MG FEED TUBE (08:50)
[2023-07-16] MEDS: POTASSIUM CHLORIDE 20 MEQ PACKET (FOR LIQUID) PO (08:52)
--- NOTE | 2023-07-16 10:59 | PM.IMPN ---
Progress Note: A&P Assessment and Plan (1) AMS (altered mental status): Code(s): R41.82 - Altered mental status, unspecified Status: Acute Assessment and Plan: Patient sent to the ED for AMS. Sister states patient has had improved mental status at times. CT brain no acute findings. AMS could be related to the UTI. He has been on fluctuating Gabapentin dosing over the past few months. This could explain his mental status changes. Now having clinical seizures. EEG ordered. Neuro consult. Add keppra. Repeat CT brain given the new changes on exam (could be Sam's paralysis). neuro checks (2) UTI (urinary tract infection): Code(s): N39.0 - Urinary tract infection, site not specified Status: Acute Assessment and Plan: UA noted with budding yeast. The patient has a history of ESBL. Patient's Ca catheter was exchanged in the emergency room. The patient was started on ertapenem. UCx growing EColi. BCx NGTD. Continue IV abx. (3) PEG (percutaneous endoscopic gastrostomy) status: Code(s): Z93.1 - Gastrostomy status Status: Acute Assessment and Plan: Patient pulled out his GTube at the [place] and a Ca was inserted in the ED. This again was removed by the patient and again replaced with a Ca. GI consulted. GTube was replaced at bedside on 07/15. Binder in place. Imaging confirmed GTube placement and TF started. Advance to goal. (4) Anemia: Code(s): D64.9 - Anemia, unspecified Status: Acute Assessment and Plan: His Hgb is 7.4 on admission. This is lower than his baseline. Serial HH with Hgb dropping to 6.7 and transfusion ordered. The patient has chronic anemia most likely secondary to his alcoholism. hgb back up to 9 now. Follow (5) Hyponatremia: Code(s): E87.1 - Hypo-osmolality and hyponatremia Status: Chronic Assessment and Plan: Patient has a sodium of 133 which is at his baseline. Continue to follow. Continue NaCl tabs (6) CHF (congestive heart failure): Code(s): I50.9 - Heart failure, unspecified Status: Acute Assessment and Plan: Echo in Jun 2021 showing EF 65-70% with Grade I diastolic dysfunction. Continue Lasix (7) Seizure: Code(s): R56.9 - Unspecified convulsions Status: Acute Assessment and Plan: He has a hx of seizures but not on anti-epileptic medications. Seizure related to alcohol w/d seizures? Occult seizures causing mental status changes? As above. Continue to follow. EEG ordered. (8) C. difficile colitis: Code(s): A04.72 - Enterocolitis due to Clostridium difficile, not specified as recurrent Status: Acute Assessment and Plan: Patient was CDiff toxin positive on 06/21 treated with oral Vanco. The patient is also noted to have diarrhea this admission. Repeat CDiff toxin again positive. No significant abd pain so hold on repeating CT abd. Vanco resumed.?Monitor stool frequency. Plan Thrombocytosis - platelet count 800K possibly acute phase reactant related to the C diff and/or UTI. Continue to follow. Subjective Date/time seen: 07/16/23 10:59 Interval history: 58yo male with alcoholism, CHF, CVA with left sided weakness and HTN here for AMS and self-removal of his GTube. Patient had a seizure this morning. Neuro consulted. AEM held. Patient is somnolent and unable to provide hx. Review of Systems Review of Systems: ROS unobtainable: Yes unobtainable due to mental status Exam Narrative: AF 98.4 136/86 97 18 100% 2L Gen - thin, chronically ill appearing male in NARD Chest - coarse BS anteriorly CV - RRR S1/S2. Tele showing one episode of wide complex mostly regular (with minor variation) rate of 70's Abd - soft, +BS, binder in place. - Ca secured draining yellow urine Ext - no LE edema Neuro - eyes open. garbled speech. dysconjugate gaze. right UE flaccid. withdraws from pain. Skin - warm and dry Objective Da
--- NOTE | 2023-07-16 11:03 | WPDGIPROGNO ---
Progress Note: A&P Assessment and Plan (1) Dislodged gastrostomy tube: Code(s): T85.528A - Displacement of other gastrointestinal prosthetic devices, implants and grafts, initial encounter Status: Acute Assessment and Plan: placed yesterday at bedside using gastrostomy site, now tolerating tube feeding please keep abdominal binder at all times will follow from afar, call if questions (2) Encephalopathy: Code(s): G93.40 - Encephalopathy, unspecified Status: Acute Assessment and Plan: multifactorial with alcohol abuse, etc (3) C. difficile colitis: Code(s): A04.72 - Enterocolitis due to Clostridium difficile, not specified as recurrent Status: Acute Assessment and Plan: on isolation and on treatment (4) Protein calorie malnutrition: Code(s): E46 - Unspecified protein-calorie malnutrition Status: Acute Assessment and Plan: tolerating tube feeding (5) Alcohol dependence: Code(s): F10.20 - Alcohol dependence, uncomplicated Status: Acute (6) Chronic anemia: Code(s): D64.9 - Anemia, unspecified Status: Acute Assessment and Plan: monitor, better after transfusion multifactorial Subjective Date/time seen: 07/16/23 11:03 Interval history: g-tube placed successfully yesterday at bedside, XR confirmed that in right position and now tolerating tube feeding at 70ml/h abdominal binder in place Review of Systems Review of Systems: ROS unobtainable: Yes unobtainable due to mental status Exam Narrative: Gen - thin, chronically ill appearing male in NARD Chest - clear anteriorly to quiet respirations, nml RR CV - RRR S1/S2. Abd - soft, ne g-tube in place with abdominal binder. - Ca secured draining orange-yellow urine Ext - no LE edema. 2+ DP bilaterally Neuro - eyes open. garbled speech. Skin - warm and dry Objective Data Vital Signs Vital Signs: Vital Signs - 24 hr 07/15/23 12:00 07/15/23 16:00 07/15/23 12:00 Temperature 99.4 F 98.6 F Pulse Rate 98 98 Respiratory Rate 18 26 H Blood Pressure 138/83 147/91 H Pulse Oximetry 96 93 Oxygen Delivery Room Air 07/15/23 16:00 07/15/23 12:00 07/15/23 14:00 Temperature Pulse Rate 99 87 Respiratory Rate Blood Pressure Pulse Oximetry Oxygen Delivery Room Air 07/15/23 16:00 07/15/23 18:00 07/15/23 20:00 Temperature 97.4 F L Pulse Rate 98 95 91 Respiratory Rate 20 Blood Pressure 138/68 Pulse Oximetry 98 Oxygen Delivery 07/15/23 20:00 07/15/23 20:00 07/15/23 22:00 Temperature Pulse Rate 104 H 87 Respiratory Rate Blood Pressure Pulse Oximetry Oxygen Delivery Room Air 07/15/23 23:27 07/16/23 00:00 07/16/23 00:00 Temperature 98.2 F Pulse Rate 101 H 94 Respiratory Rate 20 Blood Pressure 134/81 Pulse Oximetry 95 Oxygen Delivery Room Air 07/16/23 02:00 07/16/23 04:00 07/16/23 04:00 Temperature 97.7 F Pulse Rate 97 105 H 104 H Respiratory Rate 20 Blood Pressure 140/80 Pulse Oximetry 97 Oxygen Delivery 07/16/23 04:00 07/16/23 06:00 07/16/23 08:00 Temperature 98.4 F Pulse Rate 80 99 Respiratory Rate 18 Blood Pressure 136/86 Pulse Oximetry 100 Oxygen Delivery Room Air 07/16/23 08:00 07/16/23 08:00 Temperature Pulse Rate 97 Respiratory Rate Blood Pressure Pulse Oximetry Oxygen Delivery Room Air Intake/Output Intake/Output: Intake & Output 07/13/23 07/14/23 07/15/23 07/16/23 23:59 23:59 23:59 23:59 Intake Total 1100 2244 2675 1589 Output Total 800 1850 500 Balance 1100 1021 757 2747 Meds/Results Medications: Active Medications Generic Name Dose Route Start Last Admin Trade Name Freq PRN Reason Stop Dose Admin Albuterol 2.5 mg 07/14/23 01:24 Albuterol Sulfate Neb 2.5 Mg/3 Ml Inh INHALATION Q6HRT PRN Shortness Of Breath Bisacodyl 10 mg 07/14/23 00:07 Bisacodyl 10 Mg Sup
--- NOTE | 2023-07-16 11:52 | PCNFU ---
Nutrition Follow-Up Complete: Swallowing difficulties related to dysphagia as evidenced by need for a tube feeding for sole source of nutrition. Goal:Tube feeding resumed and tolerated Pt current nutrition is Glucerna 1.2 @ 60ml/hr to advance to goal rate of 70ml/hr. Nutrition recommendation: continue with current plan of care Last recorded weight is 63.1 kg. Bowel Motility: +BM 07/15 Labs Reviewed: Hgb:9.0, HCT:28.8, Alb:3.3, BUN:8, Cr:0.3 Meds Noted:lasix, folic acid, lovenox, KCL Skin: no skin issues noted Additional Notes: Pt tube replaced, tube feeding restarted. Currently running at 60ml/hr, pt is tolerating Orders to advance to 70ml/hr, 60ml flushes q 6 hrs. Totals: 1848kcals, 92g protein, 1479ml free water. Goal rate is sufficient to meet estimated needs. Monitor tube feeding rate, tolerance, wt, labs. Follow up every Saturday and Saturday.
[2023-07-16] MEDS: levETIRAcetam ORAL SOL 500 MG/5 ML UDC FEED TUBE ×2 (12:09→20:29)
[2023-07-16] MEDS: hydrOXYzine HCL 25 MG TABLET PO (12:09)
--- NOTE | 2023-07-16 13:57 | WPDNEUROLOGY ---
Neurology EEG Report General Information Date of Study: 07/16/23 TEST eeg DIAGNOSIS Altered mental status CONDITION OF RECORDING awake and drowsy EEG NUMBER [id number] CLINICAL HISTORY patient was unable to give any specific history and has been admitted to the hospital for the change in the mental status with history of seizures. EEG DESCRIPTION Basic resting occipital frequency consists of poorly organized low voltage 11 to 13 hertz per 2nd alpha admixed with low-voltage 15 to 18 hertz per 2nd beta. Multiple muscle artifacts are recorded throughout the tracing during wakefulness drowsiness and 2 episodes of generalized seizures with high-voltage fast activity lasting for more than 10seconds and followed by low to medium voltage theta activity. Throughout the tracing patient was noted to have right-sided low voltage slow activity. Hyperventilation not done photic stimulation not done ,paroxysmal ,focal ,and lateralizing. IMPRESSION Abnormal record due to the presence of abnormal background rhythm and recurrence of 2 episodes of generalized seizure in addition to postictal slow activity. 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
[2023-07-16] MEDS: ACETAMINOPHEN 325 MG TABLET 650 MG FEED TUBE (18:31)
[2023-07-16] MEDS: ERTAPENEM 1 GM/NS 50 ML 1 GM/50 ML BAG IVPB (18:32)
[2023-07-16] MEDS: LORazepam INJ (*CRX) 2 MG/ML VIAL 1 MG IV PUSH (22:49)
[2023-07-17] VITALS (13 sets, daily range): BP systolic 121–139; BP diastolic 68–93; PULSE 83–103; RESP 17–18; TEMP 36.5–37.5; O2SAT 93–98
[2023-07-17 05:30] LABS: Hematocrit 29.1 % (42.0-52.0); Hemoglobin 8.6 g/dL (14.0-18.0); Mean Corpuscular HGB Conc 29.6 g/dl (32-36); Mean Corpuscular Hemoglobin 31.7 pg (26-34); Mean Corpuscular Volume 107.4 fl (80-100); Mean Platelet Volume 9.1 fl (7.4-10.4); Platelet Count Result 744 k/mm3 (150-375); Red Blood Count 2.71 M/mm3 (4.6-6.20); Red Cell Distribution Width 17.4 % (11.5-14.5); White Blood Count 10.6 K/mm3 (4.5-10.0)
[2023-07-17] MEDS: VANCOMYCIN ORAL 125 MG/2.5 ML SYRUP FEED TUBE ×3 (05:31→18:35)
[2023-07-17] MEDS: LEVOTHYROXINE SODIUM 25 MCG TABLET FEED TUBE (05:31)
[2023-07-17] MEDS: LANSOPRAZOLE ORAL SUSP 30 MG/10 ML ORAL.SUSP FEED TUBE (05:31)
[2023-07-17 05:46] LABS: Anion Gap 2 mmol/L (8-16); Blood Urea Nitrogen 11 mg/dL (9-20); Calcium 8.3 mg/dL (8.4-10.2); Carbon Dioxide 28 mmol/L (22-30); Chloride 106 mmol/L (98-107); Estimated CRCL calculation 188 ml/min; Estimated Glomerular Filt Rate > 60; Glucose 120 mg/dL (65-110); Potassium 3.6 mmol/L (3.4-5.0); Sodium 136 mmol/L (137-145)
[2023-07-17] MEDS: CLOPIDOGREL BISULFATE 75 MG TABLET FEED TUBE (09:38)
[2023-07-17] MEDS: POTASSIUM CHLORIDE 20 MEQ PACKET (FOR LIQUID) PO (09:38)
[2023-07-17] MEDS: levETIRAcetam ORAL SOL 500 MG/5 ML UDC FEED TUBE (09:38)
[2023-07-17] MEDS: lisinopriL 20 MG TABLET FEED TUBE (09:38)
[2023-07-17] MEDS: DULoxetine HCL 60 MG CAPSULE.DR PO (09:38)
[2023-07-17] MEDS: FUROSEMIDE 40 MG TABLET FEED TUBE (09:38)
[2023-07-17] MEDS: ENOXAPARIN 40 MG/0.4 ML SYRINGE SUB-Q (09:38)
[2023-07-17] MEDS: SODIUM CHLORIDE 1 GM TABLET FEED TUBE ×2 (09:38→17:05)
[2023-07-17] MEDS: FOLIC ACID 1 MG TABLET FEED TUBE (09:38)
[2023-07-17] MEDS: GABAPENTIN 300 MG CAPSULE 600 MG FEED TUBE ×3 (09:38→17:05)
[2023-07-17] MEDS: CYANOCOBALAMIN 1,000 MCG TABLET 1000 MCG PO (09:38)
[2023-07-17] MEDS: FERROUS SULFATE LIQUID 325 MG/7.4 ML ELIXIR 324 MG FEED TUBE (09:39)
--- NOTE | 2023-07-17 12:16 | PM.IMPN ---
Progress Note: A&P Assessment and Plan (1) AMS (altered mental status): Code(s): R41.82 - Altered mental status, unspecified Status: Acute Assessment and Plan: Patient sent to the ED for AMS. Sister states patient has had improved mental status at times. CT brain no acute findings. AMS could be related to the UTI. He has been on fluctuating Gabapentin dosing over the past few months. This could explain his mental status changes. Now having clinical seizures. EEG ordered. Neuro consult. Add keppra. Repeat CT brain given the new changes on exam (could be Sam's paralysis). neuro checks (2) UTI (urinary tract infection): Code(s): N39.0 - Urinary tract infection, site not specified Status: Acute Assessment and Plan: UA noted with budding yeast. The patient has a history of ESBL. Patient's Ca catheter was exchanged in the emergency room. The patient was started on ertapenem. UCx growing EColi. BCx NGTD. Continue IV abx. (3) PEG (percutaneous endoscopic gastrostomy) status: Code(s): Z93.1 - Gastrostomy status Status: Acute Assessment and Plan: Patient pulled out his GTube at the TX and a Ca was inserted in the ED. This again was removed by the patient and again replaced with a Ca. GI consulted. GTube was replaced at bedside on 07/15. Binder in place. Imaging confirmed GTube placement and TF started. Advance to goal. (4) Anemia: Code(s): D64.9 - Anemia, unspecified Status: Acute Assessment and Plan: His Hgb is 7.4 on admission. This is lower than his baseline. Serial HH with Hgb dropping to 6.7 and transfusion ordered. The patient has chronic anemia most likely secondary to his alcoholism. hgb back up to 9 now. Follow (5) Hyponatremia: Code(s): E87.1 - Hypo-osmolality and hyponatremia Status: Chronic Assessment and Plan: Patient has a sodium of 133 which is at his baseline. Continue to follow. Continue NaCl tabs (6) CHF (congestive heart failure): Code(s): I50.9 - Heart failure, unspecified Status: Acute Assessment and Plan: Echo in Jun 2021 showing EF 65-70% with Grade I diastolic dysfunction. Continue Lasix (7) Seizure: Code(s): R56.9 - Unspecified convulsions Status: Acute Assessment and Plan: He has a hx of seizures but not on anti-epileptic medications. Seizure related to alcohol w/d seizures? Occult seizures causing mental status changes? As above. Continue to follow. EEG ordered. (8) C. difficile colitis: Code(s): A04.72 - Enterocolitis due to Clostridium difficile, not specified as recurrent Status: Acute Assessment and Plan: Patient was CDiff toxin positive on 06/21 treated with oral Vanco. The patient is also noted to have diarrhea this admission. Repeat CDiff toxin again positive. No significant abd pain so hold on repeating CT abd. Vanco resumed.?Monitor stool frequency. Plan Thrombocytosis - platelet count 800K possibly acute phase reactant related to the C diff and/or UTI. Continue to follow. Subjective Date/time seen: 07/17/23 12:16 Interval history: No new complaints lethargic Exam Narrative: AF 98.4 136/86 97 18 100% 2L Gen - thin, chronically ill appearing male in NARD Chest - coarse BS anteriorly CV - RRR S1/S2. Tele showing one episode of wide complex mostly regular (with minor variation) rate of 70's Abd - soft, +BS, binder in place. - Ca secured draining yellow urine Ext - no LE edema Neuro - eyes open. garbled speech. dysconjugate gaze. right UE flaccid. withdraws from pain. Skin - warm and dry Objective Data Vital Signs Vital Signs: Vital Signs - 24 hr 07/16/23 14:00 07/16/23 16:00 07/16/23 18:31 Temperature 100.8 F H 100.8 F H Pulse Rate 91 100 Respiratory Rate 16 Blood Pressure 125/81 Pulse Oximetry 96 Oxygen Delivery 07/16/23 16:00 07/16/23 18:00 07/16/23 16:00
[2023-07-17] MEDS: levETIRAcetam 1000MG/NACL100ML 1,000 MG/100 ML BAG 400 MG IVPB (13:09)
[2023-07-17] MEDS: LORazepam INJ (*CRX) 2 MG/ML VIAL 1 MG IV PUSH (17:05)
[2023-07-17] MEDS: ERTAPENEM 1 GM/NS 50 ML 1 GM/50 ML BAG IVPB (17:33)
[2023-07-17] MEDS: levETIRAcetam 500MG/NACL 100ML 500 MG/100 ML BAG 400 MG IVPB (17:33)
[2023-07-17 19:21] LABS: Alveolar/Arterial O2 Gradient 45.8 mmHg; Base Excess ABG 6.1 mEq/l (+/-2.0); Fractional Inspired Oxygen 21 %; HCO3 ABG 29.4 mEq/l (22.0-26.0); Oxygen Content ABG 11.8 %vol (16.0-22.0); Oxygen Saturation ABG 93.2 % (95.0-100.0); Oxyhemoglobin 89.8 % THb (90.0-100.0); PCO2 ABG 37.1 mmHg (35.0-45.0); PO2 ABG 59.5 mmHg (80.0-100.0); PO2 FiO2 Ratio Arterial Blood 2.83 %; Total Hemoglobin 9.3 g/dL (12.0-18.0)
[2023-07-17 19:24] LABS: pH ABG 7.517 (7.350-7.450)
[2023-07-17 19:25] LABS: Device ROOM AIR; Site Drawn RIGHT BRACHIAL
[2023-07-17] MEDS: levETIRAcetam ORAL SOL 500 MG/5 ML UDC 750 MG FEED TUBE (20:48)
[2023-07-18] VITALS (14 sets, daily range): BP systolic 123–162; BP diastolic 66–113; PULSE 80–103; RESP 13–26; TEMP 37.1–37.7; O2SAT 91–100
[2023-07-18] MEDS: VANCOMYCIN ORAL 125 MG/2.5 ML SYRUP FEED TUBE ×4 (00:53→17:53)
[2023-07-18 03:20] LABS: Alveolar/Arterial O2 Gradient 68.6 mmHg; Base Excess ABG 7.2 mEq/l (+/-2.0); Fractional Inspired Oxygen 28 %; HCO3 ABG 31.5 mEq/l (22.0-26.0); Oxygen Content ABG 12.4 %vol (16.0-22.0); Oxygen Saturation ABG 96.5 % (95.0-100.0); Oxyhemoglobin 94.7 % THb (90.0-100.0); PCO2 ABG 43.3 mmHg (35.0-45.0); PO2 ABG 79.9 mmHg (80.0-100.0); PO2 FiO2 Ratio Arterial Blood 2.85 %; Total Hemoglobin 9.2 g/dL (12.0-18.0); pH ABG 7.479 (7.350-7.450)
[2023-07-18 03:22] LABS: Device NASAL CANNULA; Site Drawn RIGHT BRACHIAL
[2023-07-18 04:47] LABS: Lactic Acid Reflex 1.2 mmol/L (0.7-2.0)
[2023-07-18] MEDS: LEVOTHYROXINE SODIUM 25 MCG TABLET FEED TUBE (06:30)
[2023-07-18] MEDS: LANSOPRAZOLE ORAL SUSP 30 MG/10 ML ORAL.SUSP FEED TUBE (06:30)
[2023-07-18 06:53] LABS: Anion Gap -1 mmol/L (8-16); Blood Urea Nitrogen 12 mg/dL (9-20); Calcium 8.5 mg/dL (8.4-10.2); Carbon Dioxide 35 mmol/L (22-30); Chloride 101 mmol/L (98-107); Estimated CRCL calculation 188 ml/min; Estimated Glomerular Filt Rate > 60; Glucose 118 mg/dL (65-110); Potassium 4.1 mmol/L (3.4-5.0); Sodium 135 mmol/L (137-145)
--- NOTE | 2023-07-18 08:19 | WPDCNINT ---
Assessment and Plan Assessment and plan (1) Seizure: Code(s): R56.9 - Unspecified convulsions Status: Acute Assessment and Plan: Patient with seizure activity, transferred to the ICU on 07/17/2024. -neurology following the patient -will increase Keppra to 1 g IV q.12 hours -will discuss with Neurology 07/18/2023: MRI 1. Multiple old infarcts in the brain. 2. Stable mild nonspecific cerebral white matter disease, which likely represents chronic small vessel ischemic disease 07/16/2023: CT brain without contrast 1. Areas of prior infarction without acute intracranial abnormality. 2. Age related findings 07/16/2023 EEG: ? Abnormal record due to the presence of abnormal background rhythm and recurrence of 2 episodes of generalized seizure in addition to postictal slow activity.? 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 (2) UTI (urinary tract infection): Code(s): N39.0 - Urinary tract infection, site not specified Status: Acute Assessment and Plan: Patient has a history of UTI with ESBL E coli -07/13/2023: Repeat urine cultures growing E coli sensitive to carbapenems and Zosyn only -currently on ertapenem (which can decrease seizure threshold, will discuss with pharmacist to switch to Zosyn) (3) Acute metabolic encephalopathy: Code(s): G93.41 - Metabolic encephalopathy Status: Acute Assessment and Plan: Acute metabolic encephalopathy likely multifactorial due to UTI, C diff, failure to thrive, seizure, postictal -continue to treat underlying issues (4) PEG (percutaneous endoscopic gastrostomy) status: Code(s): Z93.1 - Gastrostomy status Status: Acute Assessment and Plan: [facility] -On 07/14/2023 a 16 [place] G-tube was placed at the bedside by GI confirmed by Gastrografin KUB. -GI follow-up (5) Anemia: Code(s): D64.9 - Anemia, unspecified Status: Acute Assessment and Plan: Patient was anemic, dropped his hemoglobin to 6.7 on 07/14/2023 and was transfused 1 unit of packed RBCs -since then hemoglobin has remained stable (6) Chronic hyponatremia: Code(s): E87.1 - Hypo-osmolality and hyponatremia Status: Acute Assessment and Plan: Sodium levels much improved, will continue to monitor (7) C. difficile colitis: Code(s): A04.72 - Enterocolitis due to Clostridium difficile, not specified as recurrent Status: Acute Assessment and Plan: Patient with recent history of Clostridium difficile infection -C diff was tested positive, patient is on p.o. vancomycin -will discuss with GI regarding fidaxomicin (8) Thrombocytosis: Code(s): D75.839 - Thrombocytosis, unspecified Status: Acute Assessment and Plan: Improving gradually could be secondary to acute phase reactant -continue to monitor Plan DVT prophylaxis: Lovenox and SCDs Stress ulcer prophylaxis: Lansoprazole Nutrition: Tube feeds tolerated Code Status: Do not resuscitate Critical Care Time Spent: 49 minutes Due to a high probability of clinically significant, life threatening deterioration, the patient required my highest level of preparedness to intervene emergently and I personally spent this critical care time directly and personally managing the patient. This critical care time included obtaining a history; examining the patient; pulse oximetry; ordering and review of studies; arranging urgent treatment with development of a management plan; evaluation of patient's response to treatment; frequent reassessment; and discussions with other providers. It was exclusive of separately billable procedures and treating other patients and teaching time. Please see Assessment and Plan section and the rest of the note for further information on patient assessment and treatment This dictation may have been done utilizing a voice recognition s
[2023-07-18] MEDS: POTASSIUM CHLORIDE 20 MEQ PACKET (FOR LIQUID) PO (09:00)
[2023-07-18 09:01] LABS: Hematocrit 29.1 % (42.0-52.0); Hemoglobin 8.9 g/dL (14.0-18.0); Mean Corpuscular HGB Conc 30.6 g/dl (32-36); Mean Corpuscular Hemoglobin 31.3 pg (26-34); Mean Corpuscular Volume 102.5 fl (80-100); Mean Platelet Volume 8.3 fl (7.4-10.4); Platelet Count Result 734 k/mm3 (150-375); Red Blood Count 2.84 M/mm3 (4.6-6.20); Red Cell Distribution Width 17.1 % (11.5-14.5); White Blood Count 10.9 K/mm3 (4.5-10.0)
[2023-07-18 09:10] LABS: Ammonia < 9 umol/L (9-30)
[2023-07-18] MEDS: FERROUS SULFATE LIQUID 325 MG/7.4 ML ELIXIR 324 MG FEED TUBE (09:16)
[2023-07-18] MEDS: ENOXAPARIN 40 MG/0.4 ML SYRINGE SUB-Q (09:17)
[2023-07-18] MEDS: FUROSEMIDE 40 MG TABLET FEED TUBE (09:17)
[2023-07-18] MEDS: lisinopriL 20 MG TABLET FEED TUBE (09:17)
[2023-07-18] MEDS: CLOPIDOGREL BISULFATE 75 MG TABLET FEED TUBE (09:17)
[2023-07-18] MEDS: FOLIC ACID 1 MG TABLET FEED TUBE (09:17)
[2023-07-18] MEDS: SODIUM CHLORIDE 1 GM TABLET FEED TUBE ×2 (09:17→17:53)
[2023-07-18] MEDS: DULoxetine HCL 60 MG CAPSULE.DR PO (09:17)
[2023-07-18] MEDS: CYANOCOBALAMIN 1,000 MCG TABLET 1000 MCG PO (09:17)
[2023-07-18] MEDS: GABAPENTIN 300 MG CAPSULE 600 MG FEED TUBE ×3 (09:17→17:54)
[2023-07-18] MEDS: levETIRAcetam ORAL SOL 500 MG/5 ML UDC 1000 MG FEED TUBE (09:18)
--- NOTE | 2023-07-18 11:16 | PCFNICU ---
ICU Rounding Note: Pt current nutrition is Glucerna 1.2 at 70 ml/hr. Nutrition recommendation: Banatrol Plus TF BID Last recorded weight is 71.8 kg, up from 63.1 kg on admit Bowel Motility:+Bm reported 07/17-Cdiff + Labs Reviewed:Glu 118, Na 135, Cr 0.3 Meds Noted:Keppra, Lisinopril,Vancomycin,Cymbalta Skin: WNL Additional Notes: Patient transferred to ICU for seizure activity. Tube feedings being tolerating of Glucerna 1.2 at 70 ml/hr with flush of 60 ml q 6 hours. Banatrol Plus TF added today for stool bulking due to Cdiff. Agree with diet orders. Following daily in ICU rounds. Monitor tube feeding rate, tolerance, wt, labs. Follow up every Saturday and Saturday.
[2023-07-18] MEDS: levETIRAcetam IV 2,000 MG in DEXTROSE 5% 100 ML 430 MG IVPB (11:55)
--- NOTE | 2023-07-18 12:14 | WPDNEURCNPN ---
Assessment and Plan Assessment and plan (1) Seizure: Code(s): R56.9 - Unspecified convulsions Status: Acute (2) AMS (altered mental status): Code(s): R41.82 - Altered mental status, unspecified Status: Acute (3) UTI (urinary tract infection): Code(s): N39.0 - Urinary tract infection, site not specified Status: Acute Plan Simon Barraza is a 58 year old male with a history of prior strokes, G tube dependence, chronic alchol use, HTN, hypothyroidism who initially presented to the ED on 07/13 for encephalopathy and other concerns. Course has been complicated by recurrent seizures during this admission. Patient is at risk given prior strokes as noted on neuroimaging. Could also be provoked by UTI and ?alcohol withdrawal. No acute strokes noted on MRI. - Increase Keppra to 1500mg BID - If seizures recur, can increase Keppra further to 2000mg BID - If Keppra has been maximized to 2000mg BID and seizures recur, will likely load with Vimpat and start maintenance dosing of that. Consult date: 07/18/23 Reason for consult: Recurrent seizures HPI: Simon Barraza is a 58 year old male with a history of prior strokes, G tube dependence, chronic alchol use, HTN, hypothyroidism who initially presented to the ED on 07/13 for encephalopathy and other concerns. Prior to that he was admitted for a few days for UTI with ESBL and C. diff for which he was being treated. Patient was brought in on 07/13 for altered mental status, diarrhea, as well as pulling out his G tube. UA was concerning for a UTI. He was started on ertapenem. CT head was done which was negative. MRI brain showed multiple old infarct of the brain. Routine EEG done was done on which captured two seizures. Yesterday, he was transferred to the ICU after having recurrently clinic seizures. He is on Keppra, his dose was initially increased from 500mg BID to 1000mg BID. The seizures last only 5-15 seconds at a time. Patient remains encephalopathic. Review of Systems Review of Systems: ROS unobtainable: Yes unobtainable due to mental status PMFSH Past Medical History Medical History Acute GI bleeding Acute ischemic stroke Adult failure to thrive Alcohol dependence Aphasia Cerebrovascular accident With left-sided residual weakness. Chronic anemia Chronic hyponatremia Congestive heart failure Echocardiogram on 07/17/2021 showed normal LV chamber dimension and function with an estimated EF of 65 to 70% and grade 1 diastolic dysfunction with mild pulmonary hypertension estimated pulmonary arterial systolic pressure of 37 mmHg. Conjunctivitis COVID (08/2021) Dislodged gastrostomy tube DVT prophylaxis Encephalopathy Erosive gastritis Gastroesophageal reflux disease Generalized weakness HCAP (healthcare-associated pneumonia) Hypertension Hypokalemia Hypokalemia Hypothyroidism Orthostatic hypotension Pneumonia Protein calorie malnutrition Rectal bleeding Sepsis Stroke Tobacco dependence Unwitnessed fall Urinary tract infection UTI (urinary tract infection) Surgical History Surgical History History of excision of testicular mass With benign histology. Family History Family History Father Chronic obstructive pulmonary disease Congestive heart failure Hypertension Mother Abdominal aortic aneurysm rupture Daughter Type 1 diabetes mellitus Social History Social History Social History: The patient lives with his brother The patient has 3 children. And is disabled. The patient states that he likes to drink whiskey and does not like to drink beer. The patient is single and unemployed Surrogate decision maker: Bere Kalin, sister. Code status: Full code. Smoking packs per day: 1 Smoking c
[2023-07-18] MEDS: ERTAPENEM 1 GM/NS 50 ML 1 GM/50 ML BAG IVPB (17:54)
[2023-07-18] MEDS: hydrALAZINE HCL 20 MG/ML VIAL 10 MG IV PUSH (17:54)
[2023-07-19] VITALS (13 sets, daily range): BP systolic 105–142; BP diastolic 68–104; PULSE 80–103; RESP 12–18; TEMP 36.9–37.4; O2SAT 92–100
[2023-07-19] MEDS: VANCOMYCIN ORAL 125 MG/2.5 ML SYRUP FEED TUBE ×4 (00:09→17:29)
[2023-07-19] MEDS: LEVOTHYROXINE SODIUM 25 MCG TABLET FEED TUBE (06:14)
[2023-07-19] MEDS: LANSOPRAZOLE ORAL SUSP 30 MG/10 ML ORAL.SUSP FEED TUBE (06:14)
[2023-07-19 07:56] LABS: Basophils Absolute Auto 0.1 K/mm3 (0.0-0.1); Basophils Percent Auto 1.2 % (0.2-1.2); Eosinophils Absolute Auto 0.4 K/mm3 (0-0.3); Eosinophils Percent Auto 3.4 % (0-4.4); Hemoglobin 8.6 g/dL (14.0-18.0); Immature Granulocyte Absolute 0.06 K/mm3 (0.00-0.031); Immature Granulocyte Percent A 0.5 % (0-0.5); Lymphocytes Absolute Auto 2.38 K/mm3 (0.9-3.2); Lymphocytes Percent Auto 20.7 % (18.3-44.2); Mean Corpuscular HGB Conc 30.7 g/dl (32-36); Mean Corpuscular Hemoglobin 31.3 pg (26-34); Mean Corpuscular Volume 101.8 fl (80-100); Mean Platelet Volume 8.3 fl (7.4-10.4); Monocytes Absolute Auto 1.5 K/mm3 (0.1-0.6); Monocytes Percent Auto 13.3 % (2.6-8.5); Neutrophils Percent Auto 60.9 % (45.5-73.1); Platelet Count Result 732 k/mm3 (150-375); Red Blood Count 2.75 M/mm3 (4.6-6.20); White Blood Count 11.5 K/mm3 (4.5-10.0)
[2023-07-19 08:12] LABS: Alanine Aminotransferase 17 U/L (6-50); Albumin Level 3.1 g/dL (3.5-5.1); Alkaline Phosphatase 109 U/L (38-126); Anion Gap 0 mmol/L (8-16); Aspartate Amino Transferase 26 U/L (17-59); Bilirubin,Total 0.3 mg/dL (0.2-1.3); Blood Urea Nitrogen 13 mg/dL (9-20); Calcium 8.6 mg/dL (8.4-10.2); Carbon Dioxide 37 mmol/L (22-30); Chloride 99 mmol/L (98-107); Estimated CRCL calculation 210 ml/min; Estimated Glomerular Filt Rate > 60; Glucose 115 mg/dL (65-110); Potassium 4.1 mmol/L (3.4-5.0); Sodium 136 mmol/L (137-145)
[2023-07-19] MEDS: GABAPENTIN 300 MG CAPSULE 600 MG FEED TUBE ×3 (08:14→16:47)
[2023-07-19] MEDS: FERROUS SULFATE LIQUID 325 MG/7.4 ML ELIXIR 324 MG FEED TUBE (08:14)
[2023-07-19] MEDS: DULoxetine HCL 60 MG CAPSULE.DR PO (08:14)
[2023-07-19] MEDS: POTASSIUM CHLORIDE 20 MEQ PACKET (FOR LIQUID) PO (08:14)
[2023-07-19] MEDS: ENOXAPARIN 40 MG/0.4 ML SYRINGE SUB-Q (08:14)
[2023-07-19] MEDS: CYANOCOBALAMIN 1,000 MCG TABLET 1000 MCG PO (08:15)
[2023-07-19] MEDS: CLOPIDOGREL BISULFATE 75 MG TABLET FEED TUBE (08:15)
[2023-07-19] MEDS: FOLIC ACID 1 MG TABLET FEED TUBE (08:15)
[2023-07-19] MEDS: lisinopriL 20 MG TABLET FEED TUBE (08:15)
[2023-07-19] MEDS: hydrOXYzine HCL 25 MG TABLET PO (08:15)
[2023-07-19] MEDS: SODIUM CHLORIDE 1 GM TABLET FEED TUBE ×2 (08:15→16:47)
[2023-07-19] MEDS: FUROSEMIDE 40 MG TABLET FEED TUBE (08:17)
--- NOTE | 2023-07-19 08:35 | WPDINTPN ---
Progress Note: A&P Assessment and Plan (1) Seizure: Code(s): R56.9 - Unspecified convulsions Status: Acute Assessment and Plan: Patient with seizure activity, transferred to the ICU on 07/17/2024. -appreciate neurology following the patient -continues to have very brief seizures x2 through the night -will increase Keppra to 2 g IV q.12 hours as discussed with Neurology 07/18/2023: MRI 1. Multiple old infarcts in the brain. 2. Stable mild nonspecific cerebral white matter disease, which likely represents chronic small vessel ischemic disease 07/16/2023: CT brain without contrast 1. Areas of prior infarction without acute intracranial abnormality. 2. Age related findings 07/16/2023 EEG: ? Abnormal record due to the presence of abnormal background rhythm and recurrence of 2 episodes of generalized seizure in addition to postictal slow activity.? 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 (2) UTI (urinary tract infection): Code(s): N39.0 - Urinary tract infection, site not specified Status: Acute Assessment and Plan: Patient has a history of UTI with ESBL E coli -07/13/2023: Repeat urine cultures growing E coli sensitive to carbapenems and Zosyn only -currently on ertapenem (which can decrease seizure threshold) (3) Acute metabolic encephalopathy: Code(s): G93.41 - Metabolic encephalopathy Status: Acute Assessment and Plan: Acute metabolic encephalopathy likely multifactorial due to UTI, C diff, failure to thrive, seizure, postictal -continue to treat underlying issues (4) PEG (percutaneous endoscopic gastrostomy) status: Code(s): Z93.1 - Gastrostomy status Status: Acute Assessment and Plan: Patient pulled out his PEG tube at the alf facility -On 07/14/2023 a 16 [place] G-tube was placed at the bedside by GI confirmed by Gastrografin KUB. -GI will continue to follow (5) Anemia: Code(s): D64.9 - Anemia, unspecified Status: Acute Assessment and Plan: Patient was anemic, dropped his hemoglobin to 6.7 on 07/14/2023 and was transfused 1 unit of packed RBCs -since then hemoglobin has remained stable (6) Chronic hyponatremia: Code(s): E87.1 - Hypo-osmolality and hyponatremia Status: Acute Assessment and Plan: Sodium levels improving, will continue to monitor (7) C. difficile colitis: Code(s): A04.72 - Enterocolitis due to Clostridium difficile, not specified as recurrent Status: Acute Assessment and Plan: Patient with recent history of Clostridium difficile infection -C diff was tested positive, patient is on p.o. vancomycin -will discuss with GI regarding fidaxomicin (8) Thrombocytosis: Code(s): D75.839 - Thrombocytosis, unspecified Status: Acute Assessment and Plan: Improving gradually could be secondary to acute phase reactant -continue to monitor Plan DVT prophylaxis: Lovenox and SCDs Stress ulcer prophylaxis: Lansoprazole Nutrition: Tube feeds tolerated Code Status: Do not resuscitate Critical Care Time Spent: 33 minutes Due to a high probability of clinically significant, life threatening deterioration, the patient required my highest level of preparedness to intervene emergently and I personally spent this critical care time directly and personally managing the patient. This critical care time included obtaining a history; examining the patient; pulse oximetry; ordering and review of studies; arranging urgent treatment with development of a management plan; evaluation of patient's response to treatment; frequent reassessment; and discussions with other providers. It was exclusive of separately billable procedures and treating other patients and teaching time. Please see Assessment and Plan section and the rest of the note for further information on patient assessment and treatment This dictation may have been don
[2023-07-19] MEDS: levETIRAcetam 500MG/NACL 100ML 500 MG/100 ML BAG 400 MG IVPB (08:38)
[2023-07-19] MEDS: LACOSAMIDE (*CRX) 200 MG TABLET PO (11:46)
--- NOTE | 2023-07-19 12:13 | WPDNEUROPN ---
Progress Note: A&P Assessment and Plan (1) Seizure: Code(s): R56.9 - Unspecified convulsions Status: Acute Plan Simon Barraza is a 58 year old male with a history of prior strokes, G tube dependence, chronic alchol use, HTN, hypothyroidism who initially presented to the ED on 07/13 for encephalopathy and other concerns. Course has been complicated by recurrent seizures during this admission. Patient is at risk given prior strokes as noted on neuroimaging. Could also be provoked by UTI and ?alcohol withdrawal. No acute strokes noted on MRI. - Continue Keppra 2000mg BID - Load with Vimpat 200mg x 1, and start 100mg BID 12 hrs after loading dose Subjective Date/time seen: 07/19/23 12:13 Interval history: Simon Barraza is a 58 year old male with a history of prior strokes, G tube dependence, chronic alchol use, HTN, hypothyroidism who initially presented to the ED on 07/13 for encephalopathy and other concerns. Prior to that he was admitted for a few days for UTI with ESBL and C. diff for which he was being treated. Patient was brought in on 07/13 for altered mental status, diarrhea, as well as pulling out his G tube. UA was concerning for a UTI. He was started on ertapenem. CT head was done which was negative. MRI brain showed multiple old infarct of the brain. Routine EEG done was done on which captured two seizures. Yesterday, he was transferred to the ICU after having recurrently clinic seizures. He is on Keppra, his dose was initially increased from 500mg BID to 1000mg BID. The seizures last only 5-15 seconds at a time. Patient remains encephalopathic. Patient had two short seizures overnight. Keppra increased to 2000mg BID. He had another one minute long seizure this morning after dose was adjusted. Seizure is described as right gaze deviation with oromotor movements. Review of Systems Review of Systems: ROS unobtainable: Yes unobtainable due to medical condition and unobtainable due to mental status Exam Const: General: comfortable Eyes: Pupils: Equal, round and reactive pupils present Other: gaze appears conjugate Eyes open spontaneously Resp: Effort & Inspection: normal respiratory effort Skin: General skin exam: normal color Neuro: Other: Awake, eyes open, Localizes to noxious stimuli with LUE but not the right; overall has a preference to move the left side which he can move antigravity. No antigravity movement of the right side even with noxious stimuli. R facial droop observed. Patient did not speak. He was not able to follow commands. Extrem: General: normal to inspection Objective Data Vital Signs Vital Signs: Vital Signs - 24 hr 07/18/23 14:00 07/18/23 14:00 07/18/23 16:00 Temperature Pulse Rate 84 84 100 Respiratory Rate 13 Blood Pressure 147/96 H Pulse Oximetry 95 Oxygen Delivery Oxygen Flow Rate 07/18/23 18:00 07/18/23 16:00 07/18/23 18:00 Temperature 37.5 C 37.5 C Pulse Rate 93 100 93 Respiratory Rate 14 15 Blood Pressure 162/113 H 148/99 H Pulse Oximetry 94 91 Oxygen Delivery Oxygen Flow Rate 07/18/23 16:00 07/18/23 20:00 07/18/23 20:00 Temperature Pulse Rate 100 88 93 Respiratory Rate 14 15 Blood Pressure Pulse Oximetry 94 91 Oxygen Delivery Nasal Cannula Nasal Cannula Oxygen Flow Rate 1 2 07/18/23 20:00 07/18/23 22:00 07/18/23 22:00 Temperature 37.1 C 37.1 C Pulse Rate 88 84 80 Respiratory Rate 14 14 Blood Pressure 125/83 123/66 Pulse Oximetry 98 99 Oxygen Delivery Oxygen Flow Rate 07/19/23 00:00 07/19/23 00:00 07/19/23 00:00 Temperature 37.2 C Pulse Rate 103 H 80 103 H Respiratory Rate 14 14 Blood Pressure 125/91 H Pulse Oximetry 99 99 Oxygen Delivery Nasal Cannula Oxygen Flow Rate 2 07/19/23 02:00 07/19/23 02:00 07/19/23 03:50 Temperature 37.2 C Pulse Rate 82 82 82 Respiratory Rate 14 14 Blood Pressure 126/80 Pulse Oximetry 97 97 Oxygen Delive
--- NOTE | 2023-07-19 12:32 | PCFNICU ---
ICU Rounding Note: Pt current nutrition is Glucerna 1.2 @ 70 ml/h: 1848 kcal, 92 g protein, 1239 ml free water. Flush 60 ml q 6 hours. Nutrition recommendation: Continue with same nutrition care plan. Last recorded weight is 70.5 kg. Bowel Motility: +2 BMs 07/18/23 Labs Reviewed: Hgb 8.6, Hct 28.0, Alb 3.1, Na 136, Cre 0.3, Glu 115 Meds Noted: Lasix, Keppra, Lovenox, Folic acid, Lisinopril Skin: Maceration to buttocks from loose stools. No pressure areas Additional Notes: Continues to tolerate tube feedings well per existing PEG. On Banatrol BID for loose stools. Stools are decreasing in number. Continue with current orders Following daily in ICU rounds. Monitor tube feeding rate, tolerance, wt, labs. Follow up every Saturday and Saturday. .
[2023-07-19] MEDS: ERTAPENEM 1 GM/NS 50 ML 1 GM/50 ML BAG IVPB (17:28)
[2023-07-19] MEDS: LACOSAMIDE (*CRX) 100 MG TABLET PO (20:26)
[2023-07-20] VITALS (14 sets, daily range): BP systolic 124–144; BP diastolic 79–98; PULSE 71–96; RESP 12–18; TEMP 36.4–37.3; O2SAT 93–100
[2023-07-20] MEDS: VANCOMYCIN ORAL 125 MG/2.5 ML SYRUP FEED TUBE ×4 (00:08→17:17)
[2023-07-20 03:46] LABS: Basophils Absolute Auto 0.1 K/mm3 (0.0-0.1); Basophils Percent Auto 1.4 % (0.2-1.2); Eosinophils Absolute Auto 0.4 K/mm3 (0-0.3); Eosinophils Percent Auto 4.6 % (0-4.4); Hematocrit 28.4 % (42.0-52.0); Hemoglobin 8.7 g/dL (14.0-18.0); Immature Granulocyte Absolute 0.03 K/mm3 (0.00-0.031); Immature Granulocyte Percent A 0.3 % (0-0.5); Lymphocytes Absolute Auto 2.15 K/mm3 (0.9-3.2); Lymphocytes Percent Auto 24.7 % (18.3-44.2); Mean Corpuscular HGB Conc 30.6 g/dl (32-36); Mean Corpuscular Hemoglobin 30.6 pg (26-34); Mean Platelet Volume 8.4 fl (7.4-10.4); Monocytes Percent Auto 11.6 % (2.6-8.5); Neutrophils Percent Auto 57.4 % (45.5-73.1); Platelet Count Result 668 k/mm3 (150-375); Red Blood Count 2.84 M/mm3 (4.6-6.20); White Blood Count 8.7 K/mm3 (4.5-10.0)
[2023-07-20 03:59] LABS: Alanine Aminotransferase 15 U/L (6-50); Alkaline Phosphatase 109 U/L (38-126); Anion Gap 0 mmol/L (8-16); Aspartate Amino Transferase 25 U/L (17-59); Bilirubin,Total 0.3 mg/dL (0.2-1.3); Blood Urea Nitrogen 13 mg/dL (9-20); Calcium 8.5 mg/dL (8.4-10.2); Carbon Dioxide 32 mmol/L (22-30); Chloride 97 mmol/L (98-107); Estimated CRCL calculation 210 ml/min; Estimated Glomerular Filt Rate > 60; Glucose 109 mg/dL (65-110); Phosphorus 4.5 mg/dL (2.5-4.5); Potassium 4.4 mmol/L (3.4-5.0); Sodium 129 mmol/L (137-145)
[2023-07-20] MEDS: LEVOTHYROXINE SODIUM 25 MCG TABLET FEED TUBE (05:23)
[2023-07-20] MEDS: LANSOPRAZOLE ORAL SUSP 30 MG/10 ML ORAL.SUSP FEED TUBE (05:23)
[2023-07-20] MEDS: ENOXAPARIN 40 MG/0.4 ML SYRINGE SUB-Q (08:24)
[2023-07-20] MEDS: FERROUS SULFATE LIQUID 325 MG/7.4 ML ELIXIR 324 MG FEED TUBE (08:24)
[2023-07-20] MEDS: SODIUM CHLORIDE 1 GM TABLET FEED TUBE ×2 (08:24→17:02)
[2023-07-20] MEDS: DULoxetine HCL 60 MG CAPSULE.DR PO (08:24)
[2023-07-20] MEDS: lisinopriL 20 MG TABLET FEED TUBE (08:25)
[2023-07-20] MEDS: POTASSIUM CHLORIDE 20 MEQ PACKET (FOR LIQUID) PO (08:25)
[2023-07-20] MEDS: CYANOCOBALAMIN 1,000 MCG TABLET 1000 MCG PO (08:25)
[2023-07-20] MEDS: FOLIC ACID 1 MG TABLET FEED TUBE (08:25)
[2023-07-20] MEDS: GABAPENTIN 300 MG CAPSULE 600 MG FEED TUBE ×3 (08:25→17:02)
[2023-07-20] MEDS: LACOSAMIDE (*CRX) 100 MG TABLET PO ×2 (08:25→21:07)
[2023-07-20] MEDS: FUROSEMIDE 40 MG TABLET FEED TUBE (08:25)
[2023-07-20] MEDS: CLOPIDOGREL BISULFATE 75 MG TABLET FEED TUBE (08:27)
--- NOTE | 2023-07-20 11:32 | PM.IMPN ---
Progress Note: A&P Assessment and Plan (1) Seizure: Code(s): R56.9 - Unspecified convulsions Status: Acute Assessment and Plan: Patient with seizure activity, transferred to the ICU on 07/17/2024. -appreciate neurology following the patient -overall he is improved, answering questions this morning which is an improvement in his mental status. -will increase Keppra to 2 g IV q.12 hours as discussed with Neurology MRI noted (2) UTI (urinary tract infection): Code(s): N39.0 - Urinary tract infection, site not specified Status: Acute Assessment and Plan: Has completed ertapenem (3) Acute metabolic encephalopathy: Code(s): G93.41 - Metabolic encephalopathy Status: Acute Assessment and Plan: Acute metabolic encephalopathy likely multifactorial due to UTI, C diff, failure to thrive, seizure, postictal -continue to treat underlying issues (4) PEG (percutaneous endoscopic gastrostomy) status: Code(s): Z93.1 - Gastrostomy status Status: Acute Assessment and Plan: Patient pulled [facility] his PEG tube at the [facility] -On 07/14/2023 a 16 [place] G-tube was placed at the bedside by GI confirmed by Gastrografin KUB. -GI will continue to follow (5) Anemia: Code(s): D64.9 - Anemia, unspecified Status: Acute Assessment and Plan: Transfused on 07/14. Monitor hemoglobin. (6) Chronic hyponatremia: Code(s): E87.1 - Hypo-osmolality and hyponatremia Status: Acute Assessment and Plan: Sodium levels improving, will continue to monitor (7) C. difficile colitis: Code(s): A04.72 - Enterocolitis due to Clostridium difficile, not specified as recurrent Status: Acute Assessment and Plan: Continue p.o. vancomycin. (8) Thrombocytosis: Code(s): D75.839 - Thrombocytosis, unspecified Status: Acute Assessment and Plan: Improving, monitor Subjective Date/time seen: 07/20/23 11:33 Interval history: More alert, answering questions. No seizure activity when I saw him this morning Exam Narrative: General: Emaciated patient, looks older than his stated age, in no acute distress HEENT:? Pupils are equal and reactive, sclerae is clear, right facial droop noted Neck:? Supple, no lymphadenopathy Respiratory:? Coarse breath sounds bilaterally, decreased on bases, adequate air entry Cardiac:? Regular rate and rhythm, S1-S2 is normal Abdomen:? Soft, non tender, non distended, tympanic on percussion, normoactive bowel sounds, patient has an abdominal binder in place Extremities:? Palpable pedal pulses, loss of muscle mass noted, no edema Neuro:? Patient is more awake this morning, says a few of words which are more comprehensible but do not make any sense. Did not follow any commands this morning, does withdraw to pain on both upper and next lower extremity Skin:? Monitoring seems to have improved. Old scabs also noted Psych:? Unable to assess at this time Objective Data Vital Signs Vital Signs: Vital Signs - 24 hr 07/19/23 12:00 07/19/23 12:00 07/19/23 12:00 Temperature 99.2 F Pulse Rate 82 82 82 Respiratory Rate 12 12 Blood Pressure 132/89 Pulse Oximetry 97 97 Oxygen Delivery Room Air 07/19/23 14:00 07/19/23 14:00 07/19/23 16:00 Temperature 99.4 F Pulse Rate 89 89 83 Respiratory Rate 13 Blood Pressure 122/83 Pulse Oximetry 98 Oxygen Delivery 07/19/23 18:00 07/19/23 16:00 07/19/23 18:00 Temperature 99.3 F 98.8 F Pulse Rate 90 83 90 Respiratory Rate 13 18 Blood Pressure 112/85 125/83 Pulse Oximetry 97 96 Oxygen Delivery 07/19/23 16:00 07/19/23 20:00 07/19/23 20:00 Temperature 98.7 F Pulse Rate 90 82 82 Respiratory Rate 18 13 13 Blood Pressure 130/89 Pulse Oximetry 96 92 92 Oxygen Delivery Room Air Room Air 07/19/23 20:00 07/19/23 22:00 07/19/23 22:00 Temperature 98.9 F Pulse Rate 82 80 80 Respiratory Rate 13 Bl
--- NOTE | 2023-07-20 11:58 | WPDINTPN ---
Progress Note: A&P Assessment and Plan (1) Seizure: Code(s): R56.9 - Unspecified convulsions Status: Acute Assessment and Plan: Patient with seizure activity, transferred to the ICU on 07/17/2024. -appreciate neurology following the patient -continue Keppra 2 g IV q.12 hours and Vimpat 100 mg p.o. q.12 hours 07/18/2023: MRI 1. Multiple old infarcts in the brain. 2. Stable mild nonspecific cerebral white matter disease, which likely represents chronic small vessel ischemic disease 07/16/2023: CT brain without contrast 1. Areas of prior infarction without acute intracranial abnormality. 2. Age related findings 07/16/2023 EEG: ? Abnormal record due to the presence of abnormal background rhythm and recurrence of 2 episodes of generalized seizure in addition to postictal slow activity.? 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 (2) UTI (urinary tract infection): Code(s): N39.0 - Urinary tract infection, site not specified Status: Acute Assessment and Plan: Patient has a history of UTI with ESBL E coli -07/13/2023: Repeat urine cultures growing E coli sensitive to carbapenems and Zosyn only -completed a course of ertapenem (3) Acute metabolic encephalopathy: Code(s): G93.41 - Metabolic encephalopathy Status: Acute Assessment and Plan: Acute metabolic encephalopathy likely multifactorial due to UTI, C diff, failure to thrive, seizure, postictal -much improved (4) PEG (percutaneous endoscopic gastrostomy) status: Code(s): Z93.1 - Gastrostomy status Status: Acute Assessment and Plan: Patient pulled out his PEG tube at the senior care facility -On 07/14/2023 a 16 [place]ian G-tube was placed at the bedside by GI confirmed by Gastrografin KUB. -GI will continue to follow (5) Anemia: Code(s): D64.9 - Anemia, unspecified Status: Acute Assessment and Plan: Patient was anemic, dropped his hemoglobin to 6.7 on 07/14/2023 and was transfused 1 unit of packed RBCs -since then hemoglobin has remained stable (6) Chronic hyponatremia: Code(s): E87.1 - Hypo-osmolality and hyponatremia Status: Acute Assessment and Plan: Sodium levels improving, will continue to monitor (7) C. difficile colitis: Code(s): A04.72 - Enterocolitis due to Clostridium difficile, not specified as recurrent Status: Acute Assessment and Plan: Patient with recent history of Clostridium difficile infection -C diff was tested positive, patient is on p.o. vancomycin (8) Thrombocytosis: Code(s): D75.839 - Thrombocytosis, unspecified Status: Acute Assessment and Plan: Improving gradually could be secondary to acute phase reactant -continue to monitor Plan DVT prophylaxis: Lovenox and SCDs Stress ulcer prophylaxis: Lansoprazole Nutrition: Tube feeds tolerated Code Status: Do not resuscitate Critical Care Time Spent: 31minutes Discussed with hospitalist, Dr. House, will transfer patient to intermediate Unit Due to a high probability of clinically significant, life threatening deterioration, the patient required my highest level of preparedness to intervene emergently and I personally spent this critical care time directly and personally managing the patient. This critical care time included obtaining a history; examining the patient; pulse oximetry; ordering and review of studies; arranging urgent treatment with development of a management plan; evaluation of patient's response to treatment; frequent reassessment; and discussions with other providers. It was exclusive of separately billable procedures and treating other patients and teaching time. Please see Assessment and Plan section and the rest of the note for further information on patient assessment and treatment This dictation may have been done utilizing a voice recognition system. Attempts have been made to correc
--- NOTE | 2023-07-20 18:32 | PC.NURSE ---
This patient, Simon Barraza, was transferred to [facility] on 07/20/23 at 1745. Personal belongings sent with patient. Report given to Clay Oliver RN. Appropriate documentation sent with patient.
--- NOTE | 2023-07-20 18:35 | PC.NURSE ---
This patient, Simon Barraza, was received from ICU 9 on 07/20/23 at 1835. Patient/family oriented to unit policies and routines.
[2023-07-21] VITALS (14 sets, daily range): BP systolic 107–136; BP diastolic 63–88; PULSE 78–115; RESP 16–24; TEMP 35.8–36.9; O2SAT 93–100
[2023-07-21] MEDS: VANCOMYCIN ORAL 125 MG/2.5 ML SYRUP FEED TUBE ×4 (00:20→16:58)
[2023-07-21 04:02] LABS: Basophils Absolute Auto 0.1 K/mm3 (0.0-0.1); Basophils Percent Auto 1.6 % (0.2-1.2); Eosinophils Absolute Auto 0.4 K/mm3 (0-0.3); Hematocrit 25.6 % (42.0-52.0); Hemoglobin 8.3 g/dL (14.0-18.0); Immature Granulocyte Absolute 0.04 K/mm3 (0.00-0.031); Immature Granulocyte Percent A 0.5 % (0-0.5); Lymphocytes Absolute Auto 2.41 K/mm3 (0.9-3.2); Mean Corpuscular HGB Conc 32.4 g/dl (32-36); Mean Corpuscular Hemoglobin 31.2 pg (26-34); Mean Corpuscular Volume 96.2 fl (80-100); Mean Platelet Volume 8.1 fl (7.4-10.4); Monocytes Percent Auto 12.6 % (2.6-8.5); Neutrophils Percent Auto 50.3 % (45.5-73.1); Platelet Count Result 596 k/mm3 (150-375); Red Blood Count 2.66 M/mm3 (4.6-6.20); Red Cell Distribution Width 16.5 % (11.5-14.5)
[2023-07-21 04:19] LABS: Alanine Aminotransferase 16 U/L (6-50); Alkaline Phosphatase 105 U/L (38-126); Anion Gap 1 mmol/L (8-16); Aspartate Amino Transferase 27 U/L (17-59); Bilirubin,Total 0.3 mg/dL (0.2-1.3); Blood Urea Nitrogen 11 mg/dL (9-20); Calcium 8.7 mg/dL (8.4-10.2); Carbon Dioxide 32 mmol/L (22-30); Chloride 94 mmol/L (98-107); Estimated CRCL calculation 210 ml/min; Estimated Glomerular Filt Rate > 60; Glucose 106 mg/dL (65-110); Phosphorus 4.9 mg/dL (2.5-4.5); Potassium 4.4 mmol/L (3.4-5.0); Sodium 127 mmol/L (137-145)
[2023-07-21] MEDS: LANSOPRAZOLE ORAL SUSP 30 MG/10 ML ORAL.SUSP FEED TUBE (05:29)
[2023-07-21] MEDS: LEVOTHYROXINE SODIUM 25 MCG TABLET FEED TUBE (05:29)
[2023-07-21] MEDS: SODIUM CHLORIDE 1 GM TABLET FEED TUBE ×2 (09:57→16:58)
[2023-07-21] MEDS: LACOSAMIDE (*CRX) 100 MG TABLET PO (09:57)
[2023-07-21] MEDS: lisinopriL 20 MG TABLET FEED TUBE (09:57)
[2023-07-21] MEDS: GABAPENTIN 300 MG CAPSULE 600 MG FEED TUBE ×3 (09:57→16:58)
[2023-07-21] MEDS: DULoxetine HCL 60 MG CAPSULE.DR PO (09:58)
[2023-07-21] MEDS: FUROSEMIDE 40 MG TABLET FEED TUBE (09:58)
[2023-07-21] MEDS: FERROUS SULFATE LIQUID 325 MG/7.4 ML ELIXIR 324 MG FEED TUBE (09:58)
[2023-07-21] MEDS: FOLIC ACID 1 MG TABLET FEED TUBE (09:58)
[2023-07-21] MEDS: CLOPIDOGREL BISULFATE 75 MG TABLET FEED TUBE (09:58)
[2023-07-21] MEDS: CYANOCOBALAMIN 1,000 MCG TABLET 1000 MCG PO (09:58)
[2023-07-21] MEDS: POTASSIUM CHLORIDE 20 MEQ PACKET (FOR LIQUID) PO (10:00)
[2023-07-21] MEDS: ENOXAPARIN 40 MG/0.4 ML SYRINGE SUB-Q (10:00)
--- NOTE | 2023-07-21 10:36 | PM.IMPN ---
Progress Note: A&P Assessment and Plan (1) Seizure: Code(s): R56.9 - Unspecified convulsions Status: Acute Assessment and Plan: Patient with seizure activity and was started on Keppra. His symptoms worsened and was transferred to the ICU on 07/17/2024. He was treated with Keppra 2 g IV Q12H and Vimpat 200mg loading and then 100 mg Q12H. MRI brain showing multiple old infarcts and stable mild nonspecific cerebral white matter disease. EEG (07/16):? Abnormal record due to the presence of abnormal background rhythm and recurrence of 2 episodes of generalized seizure in addition to postictal slow activity.? 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 -Continue Keppra and Vimpat. -Change Keppra to GTube route -Contineu seizure precuations. (2) UTI (urinary tract infection): Code(s): N39.0 - Urinary tract infection, site not specified Status: Acute Assessment and Plan: Patient has a history of UTI with ESBL E coli UCx grew E coli ESBL again He completed a course of ertapenem (3) Acute metabolic encephalopathy: Code(s): G93.41 - Metabolic encephalopathy Status: Acute Assessment and Plan: Acute metabolic encephalopathy likely multifactorial due to UTI, C diff, failure to thrive, seizure, postictal -much improved (4) PEG (percutaneous endoscopic gastrostomy) status: Code(s): Z93.1 - Gastrostomy status Status: Acute Assessment and Plan: Patient [facility] -On 07/14/2023 a 16 Latvian G-tube was placed at the bedside by GI confirmed by Gastrografin KUB. -GI following from afar (5) Anemia: Code(s): D64.9 - Anemia, unspecified Status: Acute Assessment and Plan: Patient was anemic, dropped his hemoglobin to 6.7 on 07/14/2023 and was transfused 1 unit of packed RBCs -since then hemoglobin has remained stable (6) Chronic hyponatremia: Code(s): E87.1 - Hypo-osmolality and hyponatremia Status: Acute Assessment and Plan: Sodium levels dropping to 127 today. Too much free water? Related to medications On lasix but doubt dehydrated since tolerating TF at goal. -Decrease free water flushes (7) C. difficile colitis: Code(s): A04.72 - Enterocolitis due to Clostridium difficile, not specified as recurrent Status: Acute Assessment and Plan: Patient with recent history of Clostridium difficile infection C diff was tested positive, patient is on p.o. vancomycin Diarrhea slowing down -remove FCS -Continue Vanco (8) Thrombocytosis: Code(s): D75.839 - Thrombocytosis, unspecified Status: Acute Assessment and Plan: [place] to be an acute phase reactant related to CDif,, EColi UTI and untreated seizures Levels improving gradually -continue to monitor Plan DVT prophylaxis: Lovenox and SCDs Stress ulcer prophylaxis: Lansoprazole Nutrition: Tube feeds tolerated Code Status: Do not resuscitate Subjective Date/time seen: 07/21/23 10:36 Interval history: 58yo male with alcoholism, CHF, CVA with left sided weakness and HTN here for AMS and self-removal of his GTube. Resuming care. Chart reviewed. Patient was found to have seizures and Keppra was advanced. he was moved to ICU for a short period and Vimpat added. He is alert but confused and unable to provide hx. Review of Systems Review of Systems: ROS unobtainable: Yes unobtainable due to mental status Exam Narrative: AF 98.5 121/88 101 16 96% ra Gen - thin, chronically ill appearing male in NARD Chest - clear anteriroly, nml RR CV - RRR S1/S2. Tele showing no significant dyrhythmias Abd - soft, +BS, binder in place. GTube site clean and dry - Ca secured draining yellow urine. FCS with small amount of stool in tubing Ext - no LE edema Neuro - alert, speech is mostly clear. confused. Skin - warm and dry
[2023-07-21] MEDS: ACETAMINOPHEN 325 MG TABLET 650 MG FEED TUBE (16:57)
[2023-07-21] MEDS: levETIRAcetam ORAL SOL 500 MG/5 ML UDC 2000 MG FEED TUBE (21:37)
[2023-07-21] MEDS: LACOSAMIDE (*CRX) 100 MG TABLET FEED TUBE (21:38)
[2023-07-22] VITALS (7 sets, daily range): BP systolic 95–126; BP diastolic 65–74; PULSE 88–108; RESP 16–20; TEMP 36.2–36.6; O2SAT 95–100
[2023-07-22] MEDS: VANCOMYCIN ORAL 125 MG/2.5 ML SYRUP FEED TUBE ×3 (00:05→12:52)
[2023-07-22 04:58] LABS: Basophils Absolute Auto 0.2 K/mm3 (0.0-0.1); Basophils Percent Auto 1.8 % (0.2-1.2); Eosinophils Absolute Auto 0.4 K/mm3 (0-0.3); Eosinophils Percent Auto 4.3 % (0-4.4); Hematocrit 26.3 % (42.0-52.0); Hemoglobin 8.5 g/dL (14.0-18.0); Immature Granulocyte Absolute 0.06 K/mm3 (0.00-0.031); Immature Granulocyte Percent A 0.7 % (0-0.5); Lymphocytes Absolute Auto 2.45 K/mm3 (0.9-3.2); Lymphocytes Percent Auto 29.4 % (18.3-44.2); Mean Corpuscular HGB Conc 32.3 g/dl (32-36); Mean Corpuscular Hemoglobin 31.3 pg (26-34); Mean Corpuscular Volume 96.7 fl (80-100); Mean Platelet Volume 8.4 fl (7.4-10.4); Monocytes Percent Auto 12.2 % (2.6-8.5); Neutrophils Absolute Auto 4.3 K/mm3 (1.3-6.7); Neutrophils Percent Auto 51.6 % (45.5-73.1); Platelet Count Result 664 k/mm3 (150-375); Red Blood Count 2.72 M/mm3 (4.6-6.20); Red Cell Distribution Width 16.7 % (11.5-14.5); White Blood Count 8.3 K/mm3 (4.5-10.0)
[2023-07-22 05:09] LABS: Potassium 4.3 mmol/L (3.4-5.0)
[2023-07-22 05:13] LABS: Alanine Aminotransferase 16 U/L (6-50); Albumin Level 3.3 g/dL (3.5-5.1); Alkaline Phosphatase 116 U/L (38-126); Anion Gap 4 mmol/L (8-16); Aspartate Amino Transferase 24 U/L (17-59); Bilirubin,Total 0.3 mg/dL (0.2-1.3); Blood Urea Nitrogen 13 mg/dL (9-20); Carbon Dioxide 32 mmol/L (22-30); Chloride 95 mmol/L (98-107); Estimated CRCL calculation 209 ml/min; Estimated Glomerular Filt Rate > 60; Glucose 104 mg/dL (65-110); Magnesium 2.2 mg/dL (1.6-2.3); Phosphorus 5.1 mg/dL (2.5-4.5); Sodium 131 mmol/L (137-145)
[2023-07-22] MEDS: LEVOTHYROXINE SODIUM 25 MCG TABLET FEED TUBE (05:44)
[2023-07-22] MEDS: LANSOPRAZOLE ORAL SUSP 30 MG/10 ML ORAL.SUSP FEED TUBE (05:44)
--- NOTE | 2023-07-22 08:44 | PM.DS ---
DS: Admitting Diagnosis Discharge Date 07/22/23 Admitting Diagnosis Removal of GTube DS: Discharge Diagnosis Discharge Diagnosis (1) Seizure: Code(s): R56.9 - Unspecified convulsions Status: Acute (2) UTI (urinary tract infection): Code(s): N39.0 - Urinary tract infection, site not specified Status: Acute (3) Acute metabolic encephalopathy: Code(s): G93.41 - Metabolic encephalopathy Status: Acute (4) PEG (percutaneous endoscopic gastrostomy) status: Code(s): Z93.1 - Gastrostomy status Status: Acute (5) Anemia: Code(s): D64.9 - Anemia, unspecified Status: Acute (6) Chronic hyponatremia: Code(s): E87.1 - Hypo-osmolality and hyponatremia Status: Acute (7) C. difficile colitis: Code(s): A04.72 - Enterocolitis due to Clostridium difficile, not specified as recurrent Status: Acute Assessment and Plan: Patient with recent history of Clostridium difficile infection C diff was tested positive, patient is on p.o. vancomycin Diarrhea slowing down -remove FCS -Continue Vanco (8) Thrombocytosis: Code(s): D75.839 - Thrombocytosis, unspecified Status: Acute DS: Summary Hospital Course Reason for hospitalization: 58yo male with alcoholism, CHF, CVA with left sided weakness and HTN here for AMS and self-removal of his GTube. Please see H&P for details. Hospital Course: [facility] GI was consulted and, on 07/14/2023, a 16 [place]ian G-tube was placed at the bedside by GI confirmed by Gastrografin KUB. He was resumed on tube feedings and binder was placed. During his hospitalization, patient had seizure activity and was started on Keppra. His symptoms worsened and was transferred to the ICU on 07/17/2024. Neurology consulted. MRI brain showing multiple old infarcts and stable mild nonspecific cerebral white matter disease. EEG (07/16) showed: Abnormal record due to the presence of abnormal background rhythm and recurrence of 2 episodes of generalized seizure in addition to postictal slow activity.? 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 He was treated with Keppra 2 g IV Q12H and Vimpat 200mg loading and then 100 mg Q12H. No further seizure activity noted and patient's mental status improved. It was felt that his acute metabolic encephalopathy likely multifactorial due to UTI, C diff, failure to thrive, seizure, and postictal state Patient has a history of UTI with ESBL E coli. He has a chronic indwelling Ca that was changed in the ED. He was intially started on Rocephin but changed to Ertapenem given his hx. UCx grew E coli ESBL. He completed a course of ertapenem. UTI due to chronic indwelling Ca catheter. Patient has chronic anemia but Hgb dropped to 6.7 on 07/14/2023 and was transfused 1 unit of packed RBCs. No evidence of acute blood loss and hemoglobin remained stable after transfusion. Patient has chronic hyponatremia with sodium level dropping to 127. We adjusted his free water flushes and continued his NaCl tablets. Sodium improved. Patient with a recent history of Clostridium difficile infection. C diff was tested positive and he was started on p.o. vancomycin. Diarrhea resolving (maybe somewhat loose due to tube feedings). Plan for tapering dose after 10 days of treatment since this is presumed 2nd event. Patient noted to have thrombocytosis felt to be an acute phase reactant related to CDiff, EColi UTI and untreated seizures. Levels have improving gradually. Patient is alert, talkative but confused. [place] he is stable for discharge. He overall did well and was able to be discharged back to the SNF. Discussed hospital course, severity of the patient's condition and follow-up plan with his sister. All questions answered. Status at Discharge Cognitive/behavioral status at discharge: stable Time Spent with Patient Time attest
[2023-07-22] MEDS: ENOXAPARIN 40 MG/0.4 ML SYRINGE SUB-Q (08:58)
[2023-07-22] MEDS: FERROUS SULFATE LIQUID 325 MG/7.4 ML ELIXIR 324 MG FEED TUBE (08:59)
[2023-07-22] MEDS: CYANOCOBALAMIN 1,000 MCG TABLET 1000 MCG PO (08:59)
[2023-07-22] MEDS: LACOSAMIDE (*CRX) 100 MG TABLET FEED TUBE (08:59)
[2023-07-22] MEDS: GABAPENTIN 300 MG CAPSULE 600 MG FEED TUBE ×2 (08:59→12:52)
[2023-07-22] MEDS: levETIRAcetam ORAL SOL 500 MG/5 ML UDC 2000 MG FEED TUBE (08:59)
[2023-07-22] MEDS: FUROSEMIDE 40 MG TABLET FEED TUBE (08:59)
[2023-07-22] MEDS: SODIUM CHLORIDE 1 GM TABLET FEED TUBE (09:00)
[2023-07-22] MEDS: CLOPIDOGREL BISULFATE 75 MG TABLET FEED TUBE (09:00)
[2023-07-22] MEDS: FOLIC ACID 1 MG TABLET FEED TUBE (09:00)
[2023-07-22] MEDS: DULoxetine HCL 60 MG CAPSULE.DR PO (09:00)
[2023-07-22] MEDS: lisinopriL 20 MG TABLET FEED TUBE (09:00)
[2023-07-22] MEDS: POTASSIUM CHLORIDE 20 MEQ PACKET (FOR LIQUID) PO (09:00)
--- NOTE | 2023-07-22 10:56 | P.CDI_ITS ---
CDI Query Clarification Request Urine culture from 07/13/23 grew > 100,000 Escherichia coli. Chronic indwelling Hubbard catheter documented. Patient received Ertapenem 1 gm IV Q 24 hours . Clarification request - UTI has been documented, chronic indwelling hubbard catheter documented. Please clarify if UTI is: * due to/associated with chronic indwelling hubbard catheter * not due to/associated with chronic indwelling hubbard catheter * unable to determine
--- NOTE | 2023-07-22 11:23 | PCDIET ---
Consult to review tube feeding orders. Current Tube feeding: Glucerna 1.2 @ 70ml/hr over 22 hrs = 1848kcals, 92g protein, 1239ml free water. Flushes reduced to 30ml q 6hrs making free fluid total 1359ml free water. Current tube feeding orders are sufficient to meet estimated needs for calories and protein. Fluid intake is under estimated needs with flushes, previous flushes totaled 1479ml (60ml q 6 hrs), which was still under needs. Flushes were reduced yesterday due to decreasing sodium. Noted elevated Phos today. *The decrease in flushes is a total of 120ml/day or 1/2 cup of fluid total which is not significant. Unsure why pt is on Glucerna 1.2 as there is no history of diabetes, however pt has been tolerating formula and rate well at senior care and here at this admission. Switching to Jevity 1.2 would reduce the protein to 85g per day and increase the amount of total carbohydrates. Calories would remain the exact same. Sodium would decrease slightly and Phos would go up by 600mg per day with Jevity 1.2. Considering the current labs trends, it is probably best to continue with Glucerna 1.2 at this time.
[2023-07-22 13:32] LABS: SARS-CoV-2 RNA PCR Negative (Negative)
== END 2023-07-22 14:41 | DRG 919 ==
LOC: ANHED 15:33 → ANHIMU 20:36 → ANHICU 07-17 19:05 → ANHIMU 07-20 18:00
PROVIDERS: Internal Medicine; Nurse Practitioner; Admitting Provider Internal Medicine; Emergency Provider Emergency Medicine; PCP Family Medicine; Visit Provider Internal Medicine
DX: T85.528A Displacement of other gastrointestinal prosthetic devices, implants and grafts, initial encounter (principal); G93.41 Metabolic encephalopathy; A04.72 Enterocolitis due to Clostridium difficile, not specified as recurrent; N39.0 Urinary tract infection, site not specified; I69.354 Hemiplegia and hemiparesis following cerebral infarction affecting left non-dominant side; Z68.1 Body mass index [BMI] 19.9 or less, adult; Z16.12 Extended spectrum beta lactamase (ESBL) resistance; E87.1 Hypo-osmolality and hyponatremia; E46 Unspecified protein-calorie malnutrition; I50.32 Chronic diastolic (congestive) heart failure; T83.511A Infection and inflammatory reaction due to indwelling urethral catheter, initial encounter; B96.20 Unspecified Escherichia coli [E. coli] as the cause of diseases classified elsewhere; D75.839 Thrombocytosis, unspecified; D64.9 Anemia, unspecified; E87.6 Hypokalemia; E03.9 Hypothyroidism, unspecified; F10.20 Alcohol dependence, uncomplicated; I11.0 Hypertensive heart disease with heart failure; F17.210 Nicotine dependence, cigarettes, uncomplicated; I95.1 Orthostatic hypotension; I69.320 Aphasia following cerebral infarction; K21.9 Gastro-esophageal reflux disease without esophagitis; R41.82 Altered mental status, unspecified; R56.9 Unspecified convulsions; R62.7 Adult failure to thrive; R29.810 Facial weakness; Z93.1 Gastrostomy status; Z86.16 Personal history of COVID-19; Z66 Do not resuscitate; Z79.02 Long term (current) use of antithrombotics/antiplatelets; Z20.822 Contact with and (suspected) exposure to COVID-19
CPT/HCPCS: 36415; 36430; 36600; 70450; 70551; 71045; 80048; 80053; 80069; 81001; 82140; 82805; 83605; 83735; 84100; 84443; 85014; 85018; 85025; 85027; 86850; 86900; 86901; 86923; 87040; 87045; 87077; 87086; 87088; 87186; 87269; 87272; 87427; 87449; 87493; 87635; 87637; 89055; 95816; 96361; 96365; 96367; 99285; A9270; G0378; J0360; J0696; J1335; J1650; J1953; J2060; J3475; J7030; J7050; J7060; P9016

== ENCOUNTER 2024-05-04 13:50 | Outpatient (CLI) | payer MEDICARE, SELFPAY ==
--- NOTE | ~2024-05-04 | XR_ITS ---
Right Shoulder Technique: AP and scapular Y views were obtained. Clinical History: Pain Findings: No fracture or dislocation is seen. Osseous alignment is anatomic. There is mild glenohumer al joint degenerative change. AC joint intact. Soft tissues are unremarkable. Impression: Mild glenohumeral joint degenerative change. Reviewed, dictated and finalized at location . Impression: Mild glenohumeral joint degenerative change.
== END 2024-05-04 13:51 | disposition home or self-care (01) ==
PROVIDERS: PCP Physician Assistant; Visit Provider Physician Assistant Surgical
DX: M19.011 Primary osteoarthritis, right shoulder (principal)
CPT/HCPCS: 73030

== ENCOUNTER 2025-08-30 15:45 | Inpatient (IN) | payer MEDICARE, SELFPAY ==
[2025-08-30] VITALS (39 sets, daily range): BP systolic 95–162; BP diastolic 75–121; PULSE 84–144; RESP 12–28; TEMP 36–36.5; O2SAT 85–100; BMI 18.3
--- NOTE | ~2025-08-30 | XR_ITS ---
EXAMINATION: XR chest PICC line DATE: 09/03/2025 09:13 INDICATION: PICC line placement TECHNIQUE: frontal view of the chest was obtained. COMPARISON: Chest radiograph dated 09/03/2025 FINDINGS: Right upper extremity peripherally inserted central venous catheter (PICC) tip at the mid superior vena cava. Endotracheal tube tip 4.7 cm above the ailyn. Nasogastric tube extends below the left hemidiaphragm with distal tip collimated off the study. Mild reticular opacities at the bilateral lung bases most likely related to atelectasis or minimal pulmonary edema. Subtle airspace opacity at the lateral right lower lung zone which could represent additional atelectasis or pneumonia. No pleural effusion or pneumothorax. The cardiomediastinal silhouette is normal. IMPRESSION: 1. Right PICC line tip in the midsuperior vena cava. 2. Minimal bibasilar atelectasis or pulmonary edema with subtle airspace opacity right lower lung zone which could represent atelectasis or pneumonia. Reviewed, dictated and finalized at location A. IMPRESSION: 1. Right PICC line tip in the midsuperior vena cava. 2. Minimal bibasilar atelectasis or pulmonary edema with subtle airspace opacit y right lower lung zone which could represent atelectasis or pneumonia.
--- NOTE | ~2025-08-30 | CT_ITS ---
EXAMINATION: CTA brain carotid, 08/30/2025 15:45 CDT HISTORY: cva COMPARISON: No comparisons available. TECHNIQUE: CTA scan with 3D Reconstructions of the brain and neck was performed with contrast Isovue 300, 92cc injected IV. One or more of the following dose reduction techniques were used: automated exposure control, adjustment of the mA and/or kV according to patient size, use of iterative reconstruction technique. Unless otherwise stated, incidental findings do not require dedicated follow up imaging FINDINGS: CTA brain: Motion artifact limits evaluation. The basilar artery is unremarkable. Right posterior cerebral artery is unremarkable. The left posterior cerebral artery is unremarkable. The right petrous and cavernous ICA segments unremarkable. The right M1, M2 segments and their branches are unremarkable. The right A1 and A2 segments are unremarkable. Left petrous and cavernous ICA segments unremarkable. Left M1, M2 segments and their branches are unremarkable. The left A1 and A2 segments are unremarkable. There is a large remote appearing left parieto-occipital infarct. The remaining visualized mastoid air cells, sinuses and orbits appear grossly unremarkable. CTA NECK: The cervical segments of the vertebral arteries appear grossly unremarkable. Right CCA unremarkable. Right ICA unremarkable. Left CCA. Percent stenosis from calcified plaque. Proximal left ICA unremarkable. The lung apices demonstrate chronic changes. There is a micronodule in the superior segment left lower lobe measuring 6 mm incompletely evaluated with additional micronodules, outpatient chest CT is recommended. No sclerotic or lytic lesions appreciated. The remaining visualized soft tissues are unremarkable. IMPRESSION: 1. Limited study. There is no gross critical stenosis, occlusion or aneurysm identified Reviewed, dictated and finalized at location P. IMPRESSION: 1. Limited study. There is no gross critical stenosis, occlusion or aneurysm id entified
--- NOTE | ~2025-08-30 | XR_ITS ---
EXAMINATION: XR chest ET placement DATE: 09/03/2025 08:49 INDICATION: Intubation TECHNIQUE: frontal view of the chest was obtained. COMPARISON: Chest radiograph dated 08/30/2025 FINDINGS: Endotracheal tube tip 3.3 cm above the ailyn. Nasogastric tube extends below the left hemidiaphragm with distal tip collimated off the study. Lungs are clear with no focal airspace opacities, pulmonary edema, pleural effusion or pneumothorax. Heart size is normal. IMPRESSION: 1. Endotracheal tube tip 3.3 cm above the ailyn. No acute cardiopulmonary disease. Reviewed, dictated and finalized at location A. IMPRESSION: 1. Endotracheal tube tip 3.3 cm above the ailyn. No acute cardiopulmonary dise ase.
--- NOTE | ~2025-08-30 | NM_ITS ---
EXAMINATION: NM joaquin stress w perfusion DATE: 09/02/2025 13:43 INDICATION: Cardiac perfusion with abnormal result of other cardiovascular function study TECHNIQUE: Rest images were obtained following intravenous administration of 10.2 mCi Tc99m tetrofosmin (Myoview). The patient was infused intravenously with Lexiscan (Regadenoson). Then, 32.7 mCi Tc99m tetrofosmin (Myoview) was administered intravenously, and stress images were obtained. Data was ruslan nstructed into short axis and horizontal and vertical long axis SPECT images. Gated SPECT images were also obtained. COMPARISON: None. FINDINGS: There is a moderate to severe nonreversible perfusion defect involving the mid inferior, mid inferoseptal and mild nonreversible perfusion defect at the mid inferolateral segments consistent with infarct. No reversible ischemia. There is normal left ventricular chamber size. There is global hypokinesis with moderate decreased left ventricular ejection fraction measures 26%. IMPRESSION: 1. Moderate to severe nonreversible perfusion defect consistent with infarct of the mid inferoseptal, mid inferior to lesser degree mid inferolateral segments. No reversible ischemia. 2. Global hypokinesis with moderately decreased left ventricular ejection fraction measuring 26%. Reviewed, dictated and finalized at location A. IMPRESSION: 1. Moderate to severe nonreversible perfusion defect consistent with infarct of the mid inferoseptal, mid inferior to lesser degree mid inferolateral segments . No reversible ischemia. 2. Global hypokinesis with moderately decreased left ventricular ejection fract ion measuring 26%.
--- NOTE | ~2025-08-30 | MR_ITS ---
EXAMINATION: MR brain/brain stem wo/w con DATE: 09/02/2025 11:43 INDICATION: Seizure. Altered mental status. TECHNIQUE: Magnetic resonance imaging (MRI) of the brain and brainstem was performed without and with 12 mL MultiHance intravenous contrast. COMPARISON: Brain MRI 07/18/2023 FINDINGS: There are old infarcts in the occipital lobes bilaterally. There is an acute infarct involving the left hippocampus. There is no intracranial hemorrhage or abnormal mass lesion. There is old infarcts in the cerebellum bilaterally. There are scattered areas of nonspecific increased T2-weighted signal intensity in the cerebral white matter. There are small areas of cystic encephalomalacia involving the white matter of the frontal and parietal lobes bilaterally. There are old infarcts in the bilateral basal ganglia. There is ex vacuo dilatation of the trigone of left lateral ventricle. There are likely changes of ocular lens replacement surgeries. The paranasal sinuses are clear. The mastoid air cells are normal. IMPRESSION: 1. 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 2. Multiple old infarcts in the brain. 3. Moderate nonspecific cerebral white matter disease, which likely represents chronic small vessel ischemic disease. 4. No detectable contrast on the postcontrast images. Correlate with physical exam for IV infiltration. Reviewed, dictated and finalized at location E. IMPRESSION: 1. 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 2. Multiple old infarcts in the brain. 3. Moderate nonspecific cerebral white matter disease, which likely represents chronic small vessel ischemic disease. 4. No detectable contrast on the postcontrast images. Correlate with physical e xam for IV infiltration.
--- NOTE | ~2025-08-30 | XR_ITS ---
EXAMINATION: XR chest 1V portable 08/30/2025 16:25 INDICATION: CVA TECHNIQUE:2 portable AP upright frontal images of the chest were obtained. COMPARISON: 06/20/2023 FINDINGS: Heart is mildly enlarged. No pneumothorax. No pleural effusion. No free air under the diaphragm. Interstitial opacities scattered throughout both lungs. IMPRESSION: 1. Interstitial opacities in both lungs. Differential includes interstitial edema, interstitial pneumonia or chronic interstitial changes. If symptoms persist or worsen, consider a short-term follow-up study or additional imaging for further assessment. Reviewed, dictated and finalized at location Q. IMPRESSION: 1. Interstitial opacities in both lungs. Differential includes interstitial loyd ma, interstitial pneumonia or chronic interstitial changes. If symptoms persist or worsen, consider a short-term follow-up study or additio nal imaging for further assessment.
--- NOTE | ~2025-08-30 | CT_ITS ---
EXAMINATION: CT brain wo con DATE: 08/30/2025 15:49 INDICATION: Stroke with right hemiparesis TECHNIQUE: Computed tomography (CT) of the head was performed without intravenous contrast. Sagittal and coronal reconstructions were performed. The mA was adjusted according to patient size. Iterative reconstruction technique was employed. The dose-length product was 605.33 mGy-cm. COMPARISON: Brain MR dated 07/18/2023 FINDINGS: No acute intracranial hemorrhage, acute infarction or abnormal extra axial fluid collection. Moderate-sized region of encephalomalacia in the left occipital and parietal lobes consistent with old infarct. Smaller region of encephalomalacia consistent with old infarct in the right occipital lobe. There are also couple small unchanged old lacunar infarcts in the left parietal lobe and posterior right frontal lobe white matter. There is mild scattered white matter hypoattenuation consistent with chronic small vessel ischemic disease. Symmetric prominence of the sulci and subarachnoid spaces overlying the convexities consistent with moderate age-appropriate diffuse cerebral volume loss. Ventricles are normal and symmetric. No mass/mass effect. Changes of bilateral intraocular lens replacement. The orbits, paranasal sinuses and mastoid air cells are normal. IMPRESSION: 1. No acute intracranial process. 2. Several old infarcts moderate-sized at the left parietal and occipital lobes, small at the right occipital lobe and a couple additional smaller old lacunar infarcts in the right frontal and left parietal lobe white matter. 3. Age-related changes including moderate diffuse volume loss and mild scattered white matter hypoattenuation consistent with chronic small vessel ischemic disease. Reviewed, dictated and finalized at location A. IMPRESSION: 1. No acute intracranial process. 2. Several old infarcts moderate-sized at the left parietal and occipital lobes , small at the right occipital lobe and a couple additional smaller old lacunar infarcts in the right frontal and left parietal lobe white matter. 3. Age-related changes including moderate diffuse volume loss and mild scattere d white matter hypoattenuation consistent with chronic small vessel ischemic di sease.
--- NOTE | ~2025-08-30 | CT_ITS ---
EXAMINATION: CT brain wo con DATE: 09/03/2025 13:28 INDICATION: Seizures. Acute stroke on MRI. TECHNIQUE: Computed tomography (CT) of the head was performed without intravenous contrast. Sagittal and coronal reconstructions were performed. The mA was adjusted according to patient size. Iterative reconstruction technique was employed. The dose-length product was 605.33 mGy-cm. COMPARISON: head CT dated 08/30/2025 and brain MR dated 09/12/2025 FINDINGS: Again seen are moderate-sized old infarcts in the left occipital and parietal lobes and small old infarct in the right occipital lobe. Also unchanged are small old lacunar infarcts at the left basal ganglia and right frontal and left parietal lobe white matter. There is new decreased attenuation extending along the medial left temporal lobe corresponding to the acute infarct with restricted diffusion seen on prior MRI. There is mild scattered white matter hypoattenuation consistent with chronic small vessel ischemic disease. No acute intracranial hemorrhage or abnormal extra axial fluid collection. Expected dilation of the trigone region of the left lateral ventricle. Ventricles are otherwise normal and symmetric. No mass/mass effect. Changes of bilateral intraocular lens replacement. The orbits, paranasal sinuses and mastoid air cells are normal. IMPRESSION: 1. Evolving acute infarct in the medial left temporal lobe. 2. Multiple additional old infarcts in the brain as detailed above with additional mild scattered patchy white matter hypoattenuation consistent with chronic small vessel ischemic disease. Reviewed, dictated and finalized at location A. IMPRESSION: 1. Evolving acute infarct in the medial left temporal lobe. 2. Multiple additional old infarcts in the brain as detailed above with additio nal mild scattered patchy white matter hypoattenuation consistent with chronic small vessel ischemic disease.
--- NOTE | 2025-08-30 15:41 | ECG_ITS ---
Test Date: 2025-08-30 16:13:56 Measurements Intervals Success Rate: 134 P: 0 VT: 0 QRS: 264 QRSD: 157 T: 46 QT: 326 QTc: 488 Interpretive Statements ATRIAL FLUTTER/TACHYCARDIA WITH RAPID VENTRICULAR RESPONSE WITH ABERRANT CONDUCTION OR VENTRICULAR PREMATURE COMPLEXES RIGHT AXIS DEVIATION RIGHT BUNDLE BRANCH BLOCK INFERIOR INFARCT, AGE INDETERMINATE BASELINE ARTIFACT- I,II, III, AVR, AVL, AVF, V4 ABNORMAL ECG No previous ECG available for comparison Electronically Signed On 08-30-2025 19:28:24 CDT by James Cox D.O.
[2025-08-30 16:05] LABS: Hematocrit 36.0 % (42.0-52.0); Hemoglobin 12.4 g/dL (14.0-18.0); Immature Granulocyte Percent A 0.3 % (0-0.5); Lymphocytes Absolute Auto 3.27 K/mm3 (0.9-3.2); Mean Corpuscular HGB Conc 34.4 g/dl (32-36); Mean Corpuscular Hemoglobin 32.8 pg (26-34); Mean Corpuscular Volume 95.2 fl (80-100); Nucleated Red Blood Cells Absolute Auto 0.000 K/mm3 (0.0-0.012); Nucleated Red Blood Cells Perc 0.0 % (0.0-0.2); Platelet Count Result 297 k/mm3 (150-375); Red Blood Count 3.78 M/mm3 (4.6-6.20); White Blood Count 6.7 K/mm3 (4.5-10.0)
[2025-08-30 16:16] LABS: INR 0.9; Prothrombin Time 12.6 Seconds (11.1-14.7)
[2025-08-30 16:17] LABS: Partial Thromboplastin Time 31.9 Seconds (22.3-36.8)
[2025-08-30] MEDS: METOPROLOL TARTRATE INJ 5 MG/5 ML VIAL IV PUSH (16:23)
--- OUTSIDE RECORDS SUMMARY | 2025-08-30 16:25 | XMS_ITS | Data Portability ---
Author Organization [facility] [employer], Main Office Address [address] [place] [address] Assessment No assessment recorded. Plan of Treatment Reminders Order Date Submit Date Provider Last Modified By Organization Details Last Modified Time Details Appointments None recorded. Lab drug screen, urine 2024 025 [facility] (Lab), [address] [place], [address], 5 14:08:32 hemoglobin A1C, fingerstick 2024 025 [facility], [address] [place] [address], [address], 5 17:11:14 vitamin D3, 25-hydroxy, serum [address] (Lab), [address] [place], [address], 5 16:48:52 vitamin B12 + folate, serum or blood [address] (Lab), [address] [place], [address], 5 16:48:52 lipid panel, serum [address] (Lab), [address] [place], [address], 5 16:48:51 CK (creatine kinase), total, serum 2024 025 [email or web address] 4 [facility] (Lab), [address] [place], [address], 5 16:48:51 CBC w/ auto diff 2024 025 [email or web address] 4 [facility] (Lab), [address] [place], [address], 5 16:48:51 PSA, serum or plasma 2024 025 [email or web address] 4 [facility] (Lab), [address] [place], [address], 5 16:48:51 vitamin B1 (thiamine), serum 2024 025 [email or web address] 4 [facility] (Lab), [address] [place], [address], 5 16:48:51 TSH, serum or plasma 2024 025 [email or web address] 4 [facility] (Lab), [address] [place], [address], 5 16:48:51 testosteron e, free + total, serum 2024 025 [email or web address] 2 [facility] (Lab), [address] [place], [address], 5 16:05:32 noninvasive colorectal cancer DNA + occult blood screening, QL, stool 2023 024 [email or web address] 2 [facility], [address], [place], [address], 4 08:18:19 Referral neurologist referral - Please call patient to schedule an appointment . Thank you. [address] - Neurology, [address], [place], [address], 5 13:19:34 physical therapist referral - Please call pt to schedule 2024 025 [email or web address] [facility] [place], [facility], [place], [address], 5 11:08:19 physical therapist referral - Please call pt to schedule 2024 025 [email or web address] [facility] [place], [facility], [place], [address], 5 11:08:18 home health referral - needs physical therapy at home please. Please call patient to schedule an appointment . Thank you. 2023 024 [email or web address] [facility], [address], [place], [address], 4 09:20:06 physical therapist referral 2023 024 [email or web address] 256 [facility] [place], [address], [place], [address], 4 08:52:11 Procedures None recorded. Surgeries None recorded. Imaging None recorded. Medication Orders levetiracet am 1,000 mg tablet 2024 025 [facility], [address] [place], [place], [id number], 5 11:13:23 lacosamide 100 mg tablet [email or web address] [facility] #54326, [address] [place], [place], [id number], 5 14:11:28 cyclobenzap rine 10 mg tablet 2024 025 [facility], [address], [place], [id number], 5 11:13:25 hydrocodone 7.5 mg-acetamin ophen 325 mg tablet 2024 025 [facility] #23618, [address], [place], [id number], 5 11:13:25 sildenafil 100 mg tablet 2024 025 [facility] #56238, [address] [place] [address], [id number], 5 10:49:39 lacosamide 200 mg tablet [email or web address] [facility] #79011, [address] [place] [address], [id number], 5 16:28:56 levetiracet am 1,000 mg tablet 2024 025 [facility] #60730, [address] [place] [address], [id number], 5 10:46:31 gabapentin 800 mg tablet 2024 025 [facility] #11659, [address] [place] [address], [id number], 5 10:55:00 levothyroxi ne 25 mcg tablet 2024 025 [facility] #65188, [address] [place] [address], [id number], 5 10:54:59 lacosamide 200 mg tablet 2023 024 [facility], [address] [place] [address], [place], [id number], 4 11:18:11 levetiracet am 1,000 mg tablet 2023 [facility] #94775, [address] [place], [place], [id number], 4 11:18:08 cyclobenzap rine 10 mg tablet 2023 [facility] #58219, [address], [place], [id number], 4 11:18:09 hydrocodone 7.5 mg-acetamin ophen 325 mg tablet 2023 [facility] #90494, [address], [place], [id number], 4 14:26:19 prednisone 20 mg tablet 2023 [facility], [address], [place], [id number], 4 10:53:26 levetiracet am 1,000 mg tablet 2023 024 [facility] #60258, [address], [place], [id number], 4 11:46:51 lacosamide 200 mg tablet 2023 024 [email or web address] 200 [facility] #08420, [address], [place], [id number], 4 15:10:45 levothyroxi ne 25 mcg tablet 2023 024 [facility] #17147, [address] [place], [place], [id number], 11:46:51 hydrocodone 7.5 mg-acetamin ophen 325 mg tablet 2023 024 [facility]66252, [address] [place], [id number], 11:46:52 Patient TargetsNo targets recorded. Patient Instructions Encounter Date Encounter Id Patient Instructions Last Modified By Organization Details Last Modified Time 07/08/2024 [id number] dementia rating scale-2* [email or web address] Not available 07/08/2024 11:34:41 alcohol misuse* Not availab le 07/08/2024 11:34:41 depression screening* [email or web address] Not available 07/08/2024 11:34:41 multi-dimensiona l health assessment questionnaire* [email or web address] Not available 07/08/2024 11:34:41 Personalized a [facility] Plan and Screening Recommendations Advance Directives - Do you have one? No I have no recommendations Advance Directives - Do we have your advance directive on file in your health record? Primary Prevention/Interven tion (prevents or decreases the chance of common diseases from occurring) Smoking Risk: Smoker Continue to consider stopping smoking and call if we can assist you Alcohol Misuse Screening: Negative I have no recommendations Weight: Appropriate try to lose 10% of your body weight Physical activity: Need more exercise/physical activity minimum of 20-30 minutes activity that causes mild breathlessness/day Nutrition: Average I have no recommendations Fall Risk (screened today): Low I have no recommendations Vaccines Pneumococcal: No further needed Influenza: Your next one in the fall of this year Chronic Disease Risks Stroke: High Risk Active diagnosis, Continue current treatment plan Heart Attack: High Risk Active diagnosis, Continue current treatment plan Clogging of the Arteries: High risk Active diagnosis, Continue current treatment plan Diabetes: Low Risk I have no recommendations Secondary Prevention/Interven tion (detects treatable diseases before they may cause symptoms, disability, or ) Prostate Cancer Screening: recommended today No digital rectal exam screening necessary Colon Cancer Screening: Cologuard (DNA stool test) Recommended Date Screening Last Performed: Eye Disease Screening: No Eye exam necessary Dementia Risk: Low I have no recommendations Depression Screening: Negative Active diagnosis, Continue current treatment plan [email or web address] Not available 07/08/2024 11:28:05 03/11/2025 [id number] did not take med today , walk in for free bp check Not available 03/11/2025 11:10:47 Reason for Referral Physical Therapist Referral for Low back strain Referring Physician: Sang Alfaro [facility], Encounter Date: 07/08/2024 Home Health Referral for Chr onic back pain needs physical therapy at home please. Please call patient to schedule an appointment. Thank you. Referring Physician: Sang Alfaro [facility], Encounter Date: 09/09/2024 Physical Therapist Referral for Pain of right shoulder region Please call pt to schedule Referring Physician: Sang Alfaro [facility], Encounter Date: 12/10/2024 Physical Therapist Referral for Low back strain Please call pt to schedule Referring Physician: Sang Alfaro [facility], Encounter Date: 12/10/2024 Neurologist Referral for Sei zure disorder Please call patient to schedule an appointment. Thank you. Referring Physician: Nola Melissa [facility], Encounter Date: 05/06/2025 Results Created Date Observation Date Name Description Value Unit Range Abnormal Flag Note LastModifiedBy Organization Detail LastModifiedTime 08/21/20 24 08/21/2024 COLOG UARD cologuard result Cancel led - Duplic ate Order not applic able Not Available [facility] [address], [place], [address], 08/21/2024 14:56:55 07/26/20 24 07/26/2024 COLOG UARD cologuard result reportable Sample Could Not Be Proces sed n/a The sampl e stabi lity limit had been excee ded. The patie nt will be conta cted to initi ate a new sampl e colle ction . Not Available [facility] [address], [place], [address], 08/05/2024 15:02:32 08/18/20 24 08/18/2024 COLOG UARD cologuard result reportable NEGATI VE negati ve normal NEGAT DEN TEST RESUL T. A negat den Colog uard resul t indic ates a low likel ihood that a color ectal cance r (CRC) or advan diana adeno ma (jessica omato us polyp s with more advan diana pre-m align ant featu res) is prese nt. The [facility], [place] e that a perso n with a negat den Colog uard test has a color ectal cance r is less than 1 in 1500 (nega tive predi ctive value >99.9 %) or has an advan diana adeno ma is less than 5.3% (nega tive predi ctive value 94.7% ). These data are based on a prosp ectiv e cross -sect ional study of 10,00 0 indiv idual s at [place] ge risk for color ectal cance r who were scree carmine with both Colog uard and colon oscop y. (Regis Justin. et al, N Engl J Med 2014; 370(1 4):12 86-12 97) The rehana l value (refe rence range ) for this assay is negat den. COLOG UARD RE-SC REENI NG RECOM MENDA TION: Perio dic color ectal cance r scree heidi is an impor tant part of preve ntive healt hcare for asymp tomat ic indiv idual s at [place] ge risk for color ectal cance r. Follo wing a negat den Colog uard resul t, the Ameri can Cance r Socie ty and U.S. Multi -Soci ety Task Force scree heidi guide lines recom mend a Colog uard re-sc reeni ng inter tyra of 3 years . Refer ences : Ameri can Cance r Socie ty Guide line for Color ectal Cance r Scree heidi: https ://penny w.can cer.o rg/ca ncer/ colon -rect al-ca ncer/ detec tion- diagn osis- stagi ng/ac s-rec ommen datio ns.ht ml.; Jagdeep DK, Og hampton CR, Anthony jiménez JK, Color ectal Cance r Scree heidi: Recom menda tions for Physi cians and Patie nts from the U.S. Multi -Soci ety Task Force on Color ectal Cance r Scree heidi , Miguel krueger rolog y 2017; 112:1 016-1 030. TEST DESCR IPTIO N: Despard site algor ithmi c marcos sis of stool DNA-b iomar kers with hemog lobin immun oassa y. Quant itati ve value s of indiv idual bioma rkers are not repor table and are not assoc iated with ind idual bioma rker resul t refer ence range s. Colog uard is inten ded for color ectal cance r scree heidi of adult s of eithe r sex, 45 years or older , who are at [facility] for color ectal cance r (CRC) . Colog uard has been appro shen for use by the U.S. FDA. The perfo rmanc e of Colog uard was estab lishe d in a cross secti onal study of [facility] adult s aged 50-84 . Colog uard perfo rmanc e in patie nts ages 45 to 49 years was estim ated by sub-g roup marcos sis of near- age group s. Colon oscop ies perfo rmed for a posit den resul t may find as the most clini teofilo signi zeina justin lesio n: color ectal cance r [4.0% ], advan diana adeno ma (incl uding sessi le denzel jemma polyp s great er than or equal to 1cm diame ter) [20%] or non- advan diana adeno ma [31%] ; or no color ectal neopl pratima [45%] . These estim ates are deriv ed from a prosp ectiv e cross -sect ional scree heidi study of 10,00 0 indiv idual s at [facility] risk for color ectal cance r who were scree carmine with both Colog uard and colon oscop y. (Regis James et al, N Engl J Med 2014; 370(1 4):12 86-12 97.) Colog uard may produ ce a false negat den or false posit den resul t (no color ectal cance r or preca ncero us polyp prese nt at colon oscop y follo w up). A negat den Colog uard test resul t does not guara ntee the absen ce of CRC or advan diana adeno ma (pre- cance r). The curre nt Colog uard scree heidi inter tyra is every 3 years . (Amer ican Cance r Socie ty and U.S. Multi -Soci ety Task Force ). Colog uard perfo rmanc e data in a 10,00 0 patie nt pivot al study using colon oscop y as the refer ence metho d can be acces sed at the follo wing locat ion: www.e xactl abs.c om/re justina . Addit ional descr iptio n of the Colog uard test proce ss, warni ngs and preca ution s can be found at www.c jeffry kita.c om. Not Available [facility] [address], [place], [address], 08/23/2024 05:38:24 01/28/20 25 02/02/2025 TESTO STERO NE, FREE (DIAL YSIS) AND TOTAL ,MS testosterone , total, MS 407 NG/dL 250-11 00 For addit ional infor matshea starks refer to https ://ed ucati on.qu estdi Bomboard tics. com/f aq/FA Q165 (This link is being provi ded for infor matio nal/e ducat ional purpo ses only. ) (Note ) This test was devel oped and its marcos tical perfo rmanc e cecil cteri stics have been deter mined by [employer]. It has not been clear ed or appro shen by the FDA. This assay has been valid ated pursu ant to the CLIA regul ation s and is used for clini franklin purpo ses. Not Available [address] [address] [place], [address], 02/02/2025 08:58:59 01/28/2002/02/2025 TESTO STERO NE, FREE (DIAL YSIS) AND TOTAL ,MS testosterone , free 36.3 pg/mL 35.0-1 55.0 (Note ) This test was devel roberted and its marcos tical perfo rmanc e cecil cteri stics have been deter mined by [employer]. It has not been clear ed or appro shen by the FDA. This assay has been valid ated pursu ant to the CLIA regul ation s and is used for clini franklin purpo ses. [facility] med fusio n [address] [facility] [address] [facility] [address] [phone] Tere Baxter MD, PhD Not Available [address] [address] [place], [address], 02/02/2025 08:58:59 04/27/20 25 05/01/2025 LIPID PANEL , STAND KITA cholesterol, total 175 mg/dL <200 normal Not Available [facility] [address], [address], 05/01/2025 13:49:40 04/27/20 25 05/01/2025 LIPID PANEL , STAND KITA HDL cholesterol 60 mg/dL > or = 40 normal Not Available [facility] [address] [place], [address], 05/01/2025 13:49:40 04/27/20 25 05/01/2025 LIPID PANEL , STAND KITA triglyceride s 68 mg/dL <150 normal Not Available [address] [place], [address], 05/01/2025 13:49:40 04/27/20 25 05/01/2025 LIPID PANEL , STAND KITA LDL-choleste rol 100 mg/dL _(franklin c) high Refer ence range : <100 Lindy able range <100 mg/dL for prima ry preve ntion ; <70 mg/dL for patie nts with CHD or diabe tic patie nts with > or = 2 CHD risk facto rs. LDL-C is now calcu lated using the Geno n-Hop kins calcu mattleela n, which is a valid ated novel metho d provi ding lexii r accur acy than the [employer] equat ion in the estim ation of LDL-C . Geno kilpatrick SS et al. RIGOBERTO. 2013; 310(1 9): 2061- 206 (http ://ed ucati on.Qu estDi [employer]. com/f aq/FA Q164) Not Available [facility] [address] [address] [place], [address], 05/01/2025 13:49:40 04/27/20 25 05/01/2025 LIPID PANEL , STAND KITA chol/HDLC ratio 2.9 (calc ) <5.0 normal Not Available [address] , [place], [address], 05/01/2025 13:49:40 04/27/20 25 05/01/2025 LIPID PANEL , STAND KITA non HDL cholesterol 115 mg/dL _(franklin c) <130 normal For patie nts with diabe mallory plus 1 major ASCVD risk facto r, treat ing to a non-H DL-C goal of <100 mg/dL (LDL- C of <70 mg/dL ) is consi jackd a therelaine pecandacei c optio n. Not Available [facility] [address] , [place], [address], 05/01/2025 13:49:40 04/27/20 25 05/01/2025 CREAT INE KINAS E, TOTAL creatine kinase, total 63 U/L 23-325 normal Not Available [facility] [address], [place], [address], 05/01/2025 13:49:41 04/27/20 25 05/01/2025 CBC (INCL UDES DIFF/ PLT) white blood cell count 6.4 thous and/u L 3.8-10 .8 normal Not Available [address], [address], 05/01/2025 13:49:42 04/27/20 25 05/01/2025 CBC (INCL UDES DIFF/ PLT) red blood cell count 3.90 robert on/uL 4.20-5 .80 low Not Available [address], [address], 05/01/2025 13:49:42 04/27/20 25 05/01/2025 CBC (INCL UDES DIFF/ PLT) hemoglobin 12.8 g/dL 13.2-1 7.1 low Not Available [address], [address], 05/01/2025 13:49:42 04/27/20 25 05/01/2025 CBC (INCL UDES DIFF/ PLT) hematocrit 39.3 % 38.5-5 0.0 normal Not Available [address], [address], 05/01/2025 13:49:42 04/27/20 25 05/01/2025 CBC (INCL UDES DIFF/ PLT) MCV 100.8 fL 80.0-1 00.0 high Not Available [address], [address], 05/01/2025 13:49:42 04/27/20 25 05/01/2025 CBC (INCL UDES DIFF/ PLT) MCH 32.8 pg 27.0-3 3.0 normal Not Available [address], [address], 05/01/2025 13:49:42 04/27/20 25 05/01/2025 CBC (INCL UDES DIFF/ PLT) MCHC 32.6 g/dL 32.0-3 6.0 normal For adult s, a sligh t decre ase in the calcu lated MCHC value (in the range of 30 to 32 g/dL) is most likel y not clini teofilo angelai zeina t; lorena er, it shoul d be inter prete d with cauti on in [facility] with other red cell nyla eters and the patie nt's clini franklin condi tion. Not Available [facility] [address], [address], 05/01/2025 13:49:42 04/27/20 25 05/01/2025 CBC (INCL UDES DIFF/ PLT) RDW 14.3 % 11.0-1 5.0 normal Not Available [facility] [address], [address], 05/01/2025 13:49:42 04/27/20 25 05/01/2025 CBC (INCL UDES DIFF/ PLT) platelet count 336 thous and/u L 140-40 0 normal Not Available [address], [address], 05/01/2025 13:49:42 04/27/20 25 05/01/2025 CBC (INCL UDES DIFF/ PLT) MPV 9.2 fL 7.5-12 .5 normal Not Available [facility] [address], [address], 05/01/2025 13:49:42 04/27/20 25 05/01/2025 CBC (INCL UDES DIFF/ PLT) absolute neutrophils 2989 cells /uL 1500-7 800 normal Not Available [facility] [address], [address], 05/01/2025 13:49:42 04/27/20 25 05/01/2025 CBC (INCL UDES DIFF/ PLT) absolute lymphocytes 2637 cells /uL 850-39 00 normal Not Available [facility] [address], [address], 05/01/2025 13:49:42 04/27/20 25 05/01/2025 CBC (INCL UDES DIFF/ PLT) absolute monocytes 525 cells /uL 200-95 0 normal Not Available [address], [address], 05/01/2025 13:49:42 04/27/20 25 05/01/2025 CBC (INCL UDES DIFF/ PLT) absolute eosinophils 122 cells /uL 15-500 normal Not Available [address], [address], 05/01/2025 13:49:42 04/27/20 25 05/01/2025 CBC (INCL UDES DIFF/ PLT) absolute basophils 128 cells /uL 0-200 normal Not Available [address], [address], 05/01/2025 13:49:42 04/27/20 25 05/01/2025 CBC (INCL UDES DIFF/ PLT) neutrophils 46.7 % normal Not Available [facility] [address], [address], 05/01/2025 13:49:42 04/27/20 25 05/01/2025 CBC (INCL UDES DIFF/ PLT) lymphocytes 41.2 % normal Not Available [facility] [address], [address], 05/01/2025 13:49:42 04/27/20 25 05/01/2025 CBC (INCL UDES DIFF/ PLT) monocytes 8.2 % normal Not Available [facility] [address], [address], 05/01/2025 13:49:42 04/27/20 25 05/01/2025 CBC (INCL UDES DIFF/ PLT) eosinophils 1.9 % normal Not Available [facility] [address], [address], 05/01/2025 13:49:42 04/27/20 25 05/01/2025 CBC (INCL UDES DIFF/ PLT) basophils 2.0 % normal Not Available [address], [address], 05/01/2025 13:49:42 04/27/20 25 05/01/2025 PSA, TOTAL PSA, total 0.89 NG/mL < or = 4.00 normal The total PSA value from this assay syste m is stand ardiz ed again st the WHO stand kita. The test resul t will be appro ximat bassam 20% lower when gerald red to the equim olar- stand ardiz ed total PSA (Simpson man Coult er). Gerald rison of seria l PSA resul ts shoul d be inter prete d with this fact in mind. This test was perfo rmed using the Qpyn chemi lumin escen t metho d. Value s obtai carmine from diffe rent assay metho ds canno t be used inter valdez eably . PSA level s, regar dless of value , shoul d not be inter prete d as absol dano evide nce of the prese nce or absen ce of disea se. Not Available [address], [address], 05/01/2025 13:49:43 04/27/20 25 05/01/2025 VITAM IN B12/F OLATE , SERUM PANEL vitamin B12 480 pg/mL 200-11 00 normal Not Available [facility] [address], [address], 05/01/2025 13:49:44 04/27/20 25 05/01/2025 VITAM IN B12/F OLATE , SERUM PANEL folate, serum 14.1 NG/mL normal Refer ence Range Low: <3.4 Borde rline : 3.4-5 .4 Rehana l: >5.4 Not Available [employer] [facility] [address] [place], [address], 05/01/2025 13:49:44 04/27/20 25 05/01/2025 TSH W/REF EARL TO FT4 TSH w/reflex to FT4 1.07 mIU/L 0.40-4 .50 normal Not Available [facility] [address] [place], [address], 05/01/2025 13:49:45 04/27/20 25 05/01/2025 VITAM IN D,25- OH,TO LI,I A vitamin D,25-oh,tota l,ia 28 NG/mL 30-100 low Vitam in D Statu s 25-OH Vitam in D: Defic iency : <20 ng/mL Insuf ficie ncy: 20 - 29 ng/mL Optim al: > or = 30 ng/mL For 25-OH Vitam in D testi ng on patie nts on D2-jamison pplem entat ion and patie nts for whom quant itati on of D2 and D3 fract ions is requi red, the [facility] eD(TM ) 25-OH VIT D, (D2,D 3), LC/MS /MS is recom diane d: order code 43703 (mark ents >2yrs ). See Note 1 Note 1 For addit ional infor shea graves refer to http: //cyndi Rico stDia gnost ics.c om/fa q/FAQ 199 (This link is being provi ded for infor ruben marti/ louisa felix purpo ses only. ) Not Available [employer] [facility] [address] , [place], [address], 05/01/2025 13:49:46 04/27/20 25 05/01/2025 VITAM IN B1 (THIA MINE) , BLOOD , LC/MS /MS vitamin B1 (thiamine), blood, lc/MS/MS 83 nmol/ L 78-185 (Note ) Vitam in suppl ement ation withi n 24 hours prior to blood draw may affec t the accur acy of the resul ts. This test was devel oped and its marcos tical perfo rmanc e cecil cteri stics have been deter mined by [facility]. It has not been clear ed or appro shen by FDA. This assay has been valid ated pursu ant to the CLIA regul ation s and is used for clini franklin purpo ses. F med fusio n [address] [facility] [address] [place] [address] [phone] Tere Baxter MD, PhD Not Available [employer] [facility] [address] [address], [place], [address], 05/01/2025 13:49:47 08/30/20 25 08/30/2025 imagi ng/di agnos tic resul t No observ ation record ed. [place] [id number] [facility] [address], [place], [address], 08/30/2025 17:25:00 Result Notes None recorded. Problems Name Problem SNOMED Code Status Onset Date Resolution Date Notes Provider Name and Address Organization Details Recorded Time Hypertens den disorder 33432084 Active 2018 Joyce Nix APRN [address], [place], [address], [employer] 4 14:21:07 Hyponatre alanis 50888895 Active 2021 Joyce Nix APRN [address], [place], [address], [employer] 4 14:21:09 Electroly te imbalance 217891393 Completed 202105/06/2025 URIEL Tijerina [address], [place], [address], [employer] 5 14:09:37 Chronic back pain 301887499 Active 2022 Joyce Nix APRN [address], [place], [address], [employer] 4 14:21:04 Pain of right shoulder region Completed 202205/06/2025 URIEL Tijerina [address], [place], [address], [employer] 5 14:09:37 Pain of right shoulder joint [id number] Completed 202205/06/2025 URIEL Tijerina [address], [place], [address], [employer] 5 14:09:37 Erectile dysfuncti on 858060182 Active 2022 NATHANIEL Watts [address], [place], [address], [employer] 3 11:46:23 Thiamine deficienc y 423895727 Active 2023 Joyce Nix APRN [address], [place], [address], [employer] 4 14:21:36 Rupture of tendon of right shoulder Completed 202305/06/2025 URIEL Tijerina [address], [place], [address], [employer] 5 14:09:38 Supraspin atus tear 932663210 Completed 202305/06/2025 URIEL Tijerina [address], [place], [address], [employer] 5 15:54:25 Hypothyro idism 54792238 Active 2023 Joyce Nix APRN [address], [place], [address], [employer] 4 14:21:14 Seizure disorder 430389624 Active 2023 Joyce Nix APRN [address], [place], [address], [employer] 4 14:21:21 Cerebrova scular accident 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 4 14:20:57 Contact dermatiti s 86664597 Completed 202305/06/2025 URIEL Tijerina [address], [place], [address], [employer] [facility] 14:09:38 Screening for malignant neoplasm of colon Completed 202305/06/2025 URIEL Tijerina [address], [place], [address], [employer] [facility] [employer] 14:09:37 Low back strain 088390922 Completed 202305/06/2025 URIEL Tijerina [address], [place], [address], [employer] 14:09:37 Screening for malignant neoplasm of prostate Completed 202405/06/2025 URIEL Tijerina [address], [place], [address], [employer] [facility] [employer] 14:09:38 Dyspnea 866626163 Completed 202405/06/2025 URIEL Tijerina [address], [place], [address], [employer] [facility] [employer] 5 14:09:37 Hyperlipi demia 49857303 Active 2024 NATHANIEL Watts [address], [place], [address], [employer] [facility] [employer] 5 11:22:39 Taking multiple medicatio ns for chronic disease 370773392938 108 Completed 202405/06/2025 URIEL Tijerina [address], [place], [address], [employer] 5 14:09:38 Neuropath ic pain 698015968 Active 2024 KAYLA TijerinaP [address] [facility], [place], [address], [employer] 5 14:30:34 Supraspin atus tear 017443245 Active 2024 KAYLA TijerinaP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
--- OUTSIDE RECORDS SUMMARY | 2025-08-30 16:25 | XMS_ITS | Clinical Summary ---
Author Organization [address] Address [address] [place] [address] Care Team Providers Care Validation Manager Name Role Phone Unavailable Primary Care Provider Unavailabl e Allergies No known active allergies Medications lisinopril (PRINIVIL) 40 mg Oral tablet Take 40 mg by mouth daily. Active hydrochlorothia zide 25 mg Oral tablet Take 25 mg by mouth daily. Active bacitracin-poly myxin B (POLYSPORIN) 500-10,000 unit/g OP ointment 0.25 Inches by See Admin Instructions route every 4 hours for 7 days. 10.5 Inch 0 3 Active hydrOXYzine HCl (ATARAX) 25 mg Oral tablet Take 1 Tab by mouth 3 times daily as needed for Insomnia or Itching. 20 Tab 0 3 Active Active Problems No known active problems Family History Medical History Relation Name Comments Hypertension Father Relation Name Status Comments Father Mother Social History Tobacco Use Types Packs/Day Years Used Date Smoking Tobacco: Every Day Cigarettes 1 30 Smokeless Tobacco: Never Alcohol Use Standard Drinks/Week Comments Yes 0 (1 standard drink = 0.6 oz pur e alcohol) in 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 Gender Identity Not on file Sexual Orientation Not on file Last Filed Vital Signs Vital Sign Reading Time Taken Comments Blood Pressure 112/83 01/08/2013 2:28 PM CRIMINAL JUSTICE DEPARTMENT CHAIR Pulse 97 01/08/2013 2:28 PM CRIMINAL JUSTICE DEPARTMENT CHAIR Temperature 37.4 C (99.3 F) 01/08/2013 2:28 PM CRIMINAL JUSTICE DEPARTMENT CHAIR Respiratory Rate 16 01/08/2013 2:28 PM CRIMINAL JUSTICE DEPARTMENT CHAIR Oxygen Saturation 98% 01/08/2013 2:28 PM CRIMINAL JUSTICE DEPARTMENT CHAIR Inhaled Oxygen Concentration - - Weight 81.6 kg (180 lb) 01/08/2013 2:28 PM CRIMINAL JUSTICE DEPARTMENT CHAIR Height 182.9 cm (6') 01/08/2013 2:28 PM CRIMINAL JUSTICE DEPARTMENT CHAIR Body Mass Index 24.41 01/08/2013 2:28 PM CRIMINAL JUSTICE DEPARTMENT CHAIR Plan of Treatment Health Maintenance Due Date Last Done Comments DTAP/TDAP/TD VACCINES (1 - Tdap) 1985 HEPATITIS B VACCINES (1 of 3 - 19+ 3-dose series) 05/25 COLORECTAL SCREENING 2011 Colorectal Cancer Screening 2011 FIT-DNA Q 3 years 2011 FIT/FOBT Q 1 year 2011 Flex Sig/CT Colonography Q 5 years 2011 ZOSTER VACCINE (1 of 2) 2016 INFLUENZA VACCINE (#1) 2025 [place]
--- OUTSIDE RECORDS SUMMARY | 2025-08-30 16:25 | XMS_ITS | Encounter Summary ---
Author Organization [employer] Address 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
--- OUTSIDE RECORDS SUMMARY | 2025-08-30 16:25 | XMS_ITS | Clinical Summary ---
Author Organization [facility] Address [address] [place] [address] Care Team Providers Care Brake Lining Finisher Name Role Phone Jeanie Ortiz MD Primary Care Provider [phone] Source Comments [facility],non-owned Affiliates and Associated Physician Practices is amultiple site organization consisting of ambulatory clinics and hospital sitesin [place], [place] and [place]. This disclosure is being madepursuant to the Care Everywhere program and may not contain all information available regarding this patient. Last updated 18.[employer] Allergies No known active allergies Medications * This document contains information received from the source organization and may not represent a complete record from that organization. * Be aware that medications may not be up to date on this document. Alwaysverify current medications with the patient. lisinopril (PRINIVIL; ZESTRIL) 40 MG tabletIndicatio ns:Hypertension Take 40 mg by mouth once daily. Indications: High Blood Pressure Active hydrochlorothia zide (HYDRODIURIL) 25 MG tabletIndicatio ns:Hypertension Take 25 mg by mouth once daily. Indications: High Blood Pressure Active traZODone (DESYREL) 50 MG tablet Take 50 mg by mouth at bedtime. Pt not sure what he takes thinks it 50mg Active hydrOXYzine hcl (ATARAX) 25 MG tablet Take 1 Tab by mouth 4 times daily as needed. 60 Tab 0 07/20/2013 Active methocarbamol (ROBAXIN) 750 MG tablet Take 1 Tab by mouth 3 times daily as needed for Muscle Spasms. 15 Tab 0 07/20/2013 Active vitamin B-1 100 MG TABS Take 1 Tab by mouth once daily. 30 Tab 0 07/20/2013 Active Family History Medical History Relation Name Comments Alcohol abuse Father Hypertension Father Relation Name Status Comments Father Social History Tobacco Use Types Packs/Day Years Used Date Smoking Tobacco: Never Assessed Cigarettes 1 20 Tobacco Cessation:Counseling Given: Yes Comments:11/29 vodka day Alcohol Use Standard Drinks/Week Comments Yes 0 (1 standard drink = 0.6 oz pur e alcohol) 11/29 vodka a day Sex and Gender Information Value Date Recorded Sex Assigned at Not on file Legal Sex Male 10:04 AM GRILL COOK Gender Identity Not on file Sexual Orientation Not on file Last Filed Vital Signs Vital Sign Reading Time Taken Comments Blood Pressure 103/69 07/20/2013 6:45 AM CDT Pulse 74 07/20/2013 6:45 AM CDT Temperature 36.8 C (98.3 F) 07/20/2013 6:45 AM CDT Respiratory Rate 18 07/20/2013 6:45 AM CDT Oxygen Saturation 98% 07/20/2013 6:45 AM CDT Inhaled Oxygen Concentration - - Weight 79.4 kg (175 lb) 07/17/2013 4:00 PM CDT Height 182.9 cm (6') 07/17/2013 4:00 PM CDT Body Mass Index 23.73 07/17/2013 4:00 PM CDT Plan of Treatment Health Maintenance Due Date Last Done Comments COLOGUARD (AGES 45-75) - COL ON CA SCREENING 1966 COLON MONITORING 1966 COLONOSCOPY - COLON CA SCREENING 1966 CT COLONOGRAPHY - COLON CA SCREENING 1966 Colorectal Cancer Screening 1966 FIT - COLON CA SCREENING 1966 FLEX SIG - COLON CA SCREENING 1966 LIPID TESTING 1966 MEDICARE AWV 12 MONTHS 1966 DTAP/TDAP/TD VACCINES (1 - Tdap) 1985 HEPATITIS B VACCINE (1 of 3 - 19+ 3-dose series) 1985 PNEUMOCOCCAL VACCINE 50+ (1 of 1 - PCV) 2016 ZOSTER VACCINE (1 of 2) 2016 DEPRESSION SCREENING 11/25/2024 COVID-19 VACCINE (1 - 2023-2 5 season) 2025 INFLUENZA VACCINE (#1) 2025 HEPATITIS C SCREENING Completed 07/17/2013 , 12/11/2012 HIV SCREENING Completed 07/17/2013, 12/11/2012 HIB VACCINE Aged Out No longer eligi ble based on patient's age to complete this topic HPV VACCINE Aged Out No longer eligi ble based on patient's age to complete this topic MENINGOCOCCAL (Group B) VACCINE SHARED DECISION-MAKING Aged Out No longer eligible based on patient's age to complete this topic MENINGOCOCCAL GROUPS A/C/Y/W VACCINE Aged Out No longer eligible b ased on patient's age to complete this topic Procedures Procedure Name Priority Date/Time Associated Diagnosis Comments HEPATITIS SCREEN ACUTE JEN 07/17/2013 12:15 PM CDT HIV-1 HIV-2 ANTIBODY [facility] 07/17/2013 12:15 PM CDT from Last 3 Months or Most Recently Relevant to Health Maintenance Results * HIV-1 HIV-2 ANTIBODY (07/17/2013 12:15 PM CDT) Pathologist [facility] HIV-1/HIV-2 Non Reactive Non Reactive 3 7:38 AM CDT [facility] Blood BLOOD SPECIMEN / Unknown 07/17/2013 12:15 PM CDT 07/17/2013 12:23 PM CDT us Wilton Gonzalez MD LAB - CHEMISTRY ORDERABLES Final Result Performing Organization Address City/State/[facility] [[email or web address]] Co de Phone Number [facility] [address] [place] [address] * HEPATITIS SCREEN ACUTE (07/17/2013 12:15 PM CDT) HAV Antibody IgM Non Reactive Non Reactive 07/17/2013 7:57 PM CDT [facility] HBsAg Non Reactive Non Reactive 07/17/2013 7:57 PM CDT [facility] HBc Antibody IgM Non Reactive Non Reactive 07/17/2013 7:57 PM CDT [facility] HCV Antibody Screen Non Reactive Non Reactive 07/17/2013 7:57 PM CDT [facility] Blood BLOOD SPECIMEN / Unknown 07/17/2013 12:15 PM CDT 07/17/2013 12:23 PM CDT Narrative [facility] - 07/17/2013 7:57 PM CDT Nonreactive - Antibodies to HCV were not detected, result does not exclude early acute HCV infection. Wilton Gonzalez MD LAB - CHEMISTRY ORDERABLES Final Result [facility] [address] [place] [address] from Last 3 Months or Most Recently Relevant to Health Maintenance Insurance [place] MEDICAID - [employer] [facility] Address[facility] [address] [place] [address] [facility] MEDICARE Advance Directives * FULL RESUSCITATION (Latest Code Status on File) Date Activated Date Inactivated Comments 07/17/2013 11:05 AM 07/20/2013 12:02 PM * FULL RESUSCITATION Date Activated Date Inactivated Comments 12/11/2012 12:01 PM 12/14/2012 1:36 PM Care Teams Brake Lining Finisher Relationship Specialty Start Date End Date Jeanie Ortiz MD [address] [place] [address] [address] [place] [id number] PCP - General 09/18/21
--- OUTSIDE RECORDS SUMMARY | 2025-08-30 16:25 | XMS_ITS | Clinical Summary ---
Author Organization [facility] [address] Address [address] [place] [address] Care Team Providers Care Sash Finisher Name Role Phone Brayden Miranda DO Primary Care Provider [phone] Allergies Active Allergy Reactions Criticality Noted Date Comments Amoxicillin Rash Medium 07/21/2021 Gadobenate Dimeglumine Unknown 07/09/2023 Iohexol Anaphylaxis High 07/09/2023 Medications gabapentin (NEURONTIN) 800 mg tabletIndicatio ns:Neuropathic Pain Take 1 tablet (800 mg total) by mouth 3 (three) times a day Active lisinopriL (PRINIVIL,ZESTR [place]) 20 mg tabletIndicatio ns:hypertension Take 1 tablet by mouth daily 2 Active levETIRAcetam (KEPPRA) 1,000 mg tabletIndicatio ns:Partial Epilepsy Treatment Adjunct Take 2 tablets (2,000 mg total) by mouth 2 (two) times a day 120 tablet 3 Active levothyroxine (SYNTHROID) 25 mcg tabletIndicatio ns:hypothyroidi sm Take 1 tablet (25 mcg total) by mouth daily 30 tablet 3 Active thiamine (VITAMIN B1) 100 mg tabletIndicatio ns:Thiamine Deficiency Take 1 tablet (100 mg total) by mouth daily 30 tablet 3 Active lacosamide (VIMPAT) 200 mg tabletIndicatio ns:Status Epilepticus Take 1 tablet (200 mg total) by mouth 2 (two) times a day 60 tablet 3 Active acetaminophen (TYLENOL) 500 mg tabletIndicatio ns:Pain Take 1,000 mg by mouth every 6 (six) hours as needed for pain. Indications: pain Active HYDROcodone-kathie taminophen (NORCO) 7.5-325 mg per tabletIndicatio ns:Pain Take 1 tablet by mouth 2 (two) times a day as needed for pain. Indications: pain Active levETIRAcetam (KEPPRA) 1,000 mg tabletIndicatio ns:Partial Epilepsy Treatment Adjunct Take 2,000 mg by mouth 2 (two) times a day. Indications: additional medication to treat partial seizures Active lacosamide (VIMPAT) 200 mg tabletIndicatio ns:Partial Epilepsy Treatment Adjunct Take 200 mg by mouth 2 (two) times a day. Indications: additional medication to treat partial seizures Active levothyroxine (SYNTHROID) 25 mcg tabletIndicatio ns:hypothyroidi sm Take 25 mcg by mouth bridge design engineer before breakfast. Indications: a condition with low thyroid hormone levels Active thiamine HCl (THIAMINE, VITAMIN B1, 100 MG TABLET, SO,)Indications :no indication Take 1 tablet by mouth daily. Indications: no indication Active furosemide (LASIX) 40 mg tablet Take 1 tablet (40 mg total) by mouth daily 2 12/08/19 24 Discontin ued(Stop Taking at Discharge ) pantoprazole DR (PROTONIX) 40 mg EC tablet Take 1 tablet (40 mg total) by mouth daily 3 12/08/19 24 Discontin ued(Stop Taking at Discharge ) folic acid (FOLVITE) 1 mg tablet Take 1 tablet (1 mg total) by mouth daily 12/08/19 24 Discontin ued(Stop Taking at Discharge ) Active Problems Problem Noted Date Diagnosed Date Disorientation 11/17/2023 Erectile dysfunction 11/04/2023 Pain in joint of right shoulder 11/04/2023 Depression, unspecified 08/22/2023 Other fatigue 08/09/2023 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 Cognitive communication deficit 07/22/2023 Dysphagia following unspecified cerebrovascular disease 07/22/2023 Dysphagia, oropharyngeal phase 07/22/2023 Vitamin D deficiency, unspecified 07/11/2023 Acute kidney failure, unspecified 07/09/2023 Adult failure to thrive 07/09/2023 Alcohol use, unspecified, uncomplicated 07/09/20 Anemia, unspecified 07/09/2023 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 07/09/2023 Other frontotemporal neurocognitive disorder Disorientation, unspecified 07/09/2023 Dysphagia, pharyngeal phase 07/09/2023 Encephalopathy, unspecified 07/09/2023 Frontal lobe and executive function deficit 06/25 Hemiplegia and hemiparesis f ollowing cerebral infarction affecting left non-dominant side 07/09/2023 Hypoglycemia, unspecified 07/09/2023 Hypothyroidism, unspecified 07/09/2023 Muscle wasting and atrophy, not elsewhere classified, unspecified site 07/09/2023 Muscle weakness (generalized) 07/09/2023 Other abnormalities of gait and mobility 023 Other malaise 07/09/2023 Pulmonary hypertension, unspecified 07/09/2023 Unspecified diastolic (congestive) heart failure 07/09/2023 Slurred speech 07/09/2023 Unspecified severe protein-calorie malnutrition 07/09/2023 Chronic back pain 04/02/2023 Electrolyte imbalance 08/01/2022 Hyponatremia 06/11/2022 Cerebral infarction 07/21/2021 Hyperkalemia 07/21/2021 Hypertension 05/11/2013 Overview (03/01/2017): Hypertension, Unspecified Immunizations Immunization Administration Dates Next Due Influenza, Unspecified 08/26/2023 Medical History Medical History Date Comments Hypertension Hypertension Family History Medical History Relation Name Comments Coronary artery disease Father Shruthi nary artery disease; Diabetes Father Diabetes mellit us; Hypertension Father Hypertension; Coronary artery disease Mother Shruthi nary artery disease; Osteoporosis Mother Osteoporosis; Relation Name Status Comments Father Mother Social History Tobacco Use Types Packs/Day Years Used Date Smoking Tobacco: Every Day Cigarettes Tobacco Cessation:Ready to Q uit: Not Asked; Counseling Given: Not Answered Alcohol Use Standard Drinks/Week Comments Yes 0 (1 standard drink = 0.6 oz pur e alcohol) OASIS D0700: Social Isolation Answer Da te Recorded Frequency of experiencing loneliness or isolatio n Never 12/25/2023 OASIS A1250: Transportation Answer Date Recorded Lack of Transportation (Medical) No 12/25/2023 Lack of Transportation (Non-Medical) No 12/25/2023 Patient Unable or Declines to Respond No 12/25/2023 OASIS B1300: Health Literacy Answer Helder e Recorded Frequency of needing help to read materials from doctor or pharmacy Sometimes 12/25/2023 Personal Safety Answer Date Recorded Have you ever been in or are you currently in a harmful physical or emotional relationship or is someone making you feel afraid or unsafe? Denies 11/17/2023 Sex and Gender Information Value Date Recorded Sex Assigned at Not on file Legal Sex Male 11:20 PM TUNNEL MUCKER Gender Identity Male 11/19/2023 10:21 AM TUNNEL MUCKER Sexual Orientation Choose not to disclose 2022 10:21 AM TUNNEL MUCKER Obstetrics History Last Filed Vital Signs Vital Sign Reading Time Taken Comments Blood Pressure 111/81 12/25/2023 2:03 PM TUNNEL MUCKER Pulse 55 12/25/2023 2:03 PM TUNNEL MUCKER Temperature 36 C (96.8 F) 12/25/2023 2:03 PM TUNNEL MUCKER Respiratory Rate 18 12/25/2023 2:03 PM TUNNEL MUCKER Oxygen Saturation 100% 12/25/2023 2:03 PM TUNNEL MUCKER Inhaled Oxygen Concentration - - Weight 64.3 kg (141 lb 11.2 oz) 023 10:35 PM TUNNEL MUCKER Height 182.9 cm (6') 11/17/2023 10:35 PM TUNNEL MUCKER Body Mass Index 19.22 11/17/2023 10:35 PM TUNNEL MUCKER Plan of Treatment Health Maintenance Due Date Last Done Comments Colon Cancer Screening-Colonoscopy 1966 Depression Screening 1966 Hepatitis C Screening 1966 Prostate Cancer Screening-PSA 1966 DTaP/Tdap/Td Vaccine (1 - Tdap) 1977 Hepatitis B Screening 1984 Regular Well Visit/Exam 18-64 1984 Pneumococcal vaccine <65 (1 of 2 - PCV) 1985 Zoster Vaccine (1 of 2) 2016 Influenza Vaccine (#1) 2025 3, 08/26/2023, 10/12/[address] [facility] [employer] MEDICARE GOLD MEDICARE Advance Directives For more information, please contact: [phone] Documents on File Type Date Recorded Patient Transitional Living Specialist Expl anation ADVANCE DIRECTIVE 11/28/2023 1:23 PM POWER OF CLINICAL RESEARCH SPEC-MEDICAL ADVANCE DIRECTIVE 11/22/2023 3:13 PM JOSE R R OF CLINICAL RESEARCH SPEC-MEDICAL * Full Code (Latest Code Status on File) Date Activated Date Inactivated Comments 11/17/2023 10:34 PM 11/22/2023 7:13 PM Care Teams Sash Finisher Relationship Specialty Start Date End Date Brayden Miranda DO PCP - General Internal Medicine 01/02/24
--- OUTSIDE RECORDS SUMMARY | 2025-08-30 16:25 | XMS_ITS | Clinical Summary ---
Author Organization [facility] Address [address] [place] [address] Phone Care Team Providers Care Fruit Packer Face And Fill Name Role Phone Jeanie Ortiz MD Primary Care Provider [phone] Allergies No known active allergies Medications furosemide (LASIX) 40 MG tablet Take 40 mg by mouth 1 (one) time each day 08/24/2022 Active lisinopril (PRINIVIL) 20 MG tablet Take 20 mg by mouth 1 (one) time each day 08/24/2022 Active clopidogrel (PLAVIX) 75 MG tablet Take 75 mg by mouth 1 (one) time each day 08/24/2022 Active Active Problems Problem Noted Date Diagnosed Date Cerebral infarction 07/21/2021 Hyperkalemia 07/21/2021 Hyposmolality and/or hyponatremia 03/25/2021 Hypertensive disorder 12/30/2018 Immunizations Immunization Administration Dates Next Due Influenza TIV (IM) 09/19/2022(Deferred: Patient Refused) Influenza, Injectable, Quadr ivalent, Preservative Free 10/12/2021 Pfizer Sars-cov-2 Vaccination 08/09/2021, 021 Social History Tobacco Use Types Packs/Day Years Used Date Smoking Tobacco: Never Smokeless Tobacco: Never Tobacco Cessation:Counseling Given: Not Answered Alcohol Use Standard Drinks/Week Comments Not Currently 0 (1 standard drink = 0.6 oz pur e alcohol) Sex and Gender Information Value Date Recorded Sex Assigned at Not on file Legal Sex Male 8:59 AM MDT Gender Identity Not on file Sexual Orientation Not on file Last Filed Vital Signs Vital Sign Reading Time Taken Comments Blood Pressure 122/80 09/19/2022 9:53 AM CDT Pulse 72 09/19/2022 9:53 AM CDT Temperature 36.6 C (97.9 F) 09/19/2022 9:53 AM CDT Respiratory Rate - - Oxygen Saturation - - Inhaled Oxygen Concentration - - Weight 68 kg (150 lb) 09/19/2022 9:53 AM CDT Height 182.9 cm (6') 09/19/2022 9:53 AM CDT Body Mass Index 20.34 09/19/2022 9:53 AM CDT Plan of Treatment Health Maintenance Due Date Last Done Comments COVID-19 Vaccine ( season) 2025, 03/20/2021 Influenza Vaccine (#1) 2025 10/12/2021 Insurance [place] [employer] Care Teams Fruit Packer Face And Fill Relationship Specialty Start Date End Date Jeanie Ortiz MD [address] [place] [address] [address] [place] [address] PCP - General Family Medicine 03/21/21
[2025-08-30 16:46] LABS: Alanine Aminotransferase 15 U/L (6-50); Albumin Level 4.6 g/dL (3.5-5.1); Alkaline Phosphatase 82 U/L (38-126); Anion Gap 7 mmol/L (4-12); Aspartate Amino Transferase 28 U/L (17-59); Bilirubin,Total 0.5 mg/dL (0.2-1.3); Blood Urea Nitrogen 15 mg/dL (9-20); Calcium 9.0 mg/dL (8.4-10.2); Carbon Dioxide 25 mmol/L (22-30); Chloride 89 mmol/L (98-107); Estimated CRCL calculation 81 ml/min; Estimated Glomerular Filt Rate > 60; Glucose 114 mg/dL (65-110); Potassium 4.7 mmol/L (3.4-5.0); Sodium 121 mmol/L (137-145); Total Protein 7.5 g/dL (6.3-8.2)
[2025-08-30 16:53] LABS: Troponin I < 0.012 ng/mL (0.000-0.034)
[2025-08-30] MEDS: SODIUM CHLORIDE 0.9% IV 1,000 ML 150 ML IV CONT (17:15)
[2025-08-30] MEDS: levETIRAcetam 1000MG/NACL100ML 1,000 MG/100 ML BAG 400 MG IVPB (17:15)
--- NOTE | 2025-08-30 17:35 | PC.NURSE ---
Keppra and IV fluids infusing. Pt having improved neuro status, pt moving all extremities to some extent (crossed legs, put arm behind his head). Pt able to follow commands enough to wiggle fingers and toes with lots of encouragement and reminding. Speaking short phrases such as I suppose so, but still answering some questions in appropriately. Recognized family member at bedside. Family updated. UA sent.
[2025-08-30 17:44] LABS: Add Urine Microscopic? YES; Appearance Urine Clear (Clear); Glucose Urine UA Negative (Negative); Leukocyte Esterase Ur Trace LEU/UL (Negative); Nitrate Urine Negative (Negative); Non Pathogenic Casts 0-2; Specific Grav Ur 1.018 (1.001-1.035)
--- NOTE | 2025-08-30 18:02 | ED.NEUROSD ---
HPI - Neuro Symptoms/Deficit General Chief Complaint: Neuro Symptoms/Deficit Stated Complaint: r/o cva Time Seen by Provider: 08/30/25 16:15 Source: EMS Mode of arrival: EMS Limitations: altered mental status History of Present Illness HPI Narrative: 60-year-old with a history of CVA, seizure disorder, alcohol abuse sober for last 2 years was brought in from home with the complaints of altered mental status. Last known normal was 8:00 p.m. last night. Around about 2:00 a.m. he had called his family stating that he has not feeling well. Upon arrival to the ER he is nonverbal staying to with the left. He Onset (ago): hour(s) (14) Timing confirmed by: family member Location: speech History of same: Yes Severity: moderate Exacerbating factors: none Associated symptoms: denies other symptoms Related Data Home Medications ?Medication ?Instructions ?Recorded ?Confirmed ?Last Taken ?Type lisinopril 20 mg tablet 20 mg feeding tube DAILY 04/10/23 05/05/24 Unknown History magnesium citrate (Citroma oral 296 ml feeding tube PRN 07/13/23 05/05/24 Unknown History solution) Allergies Allergy/AdvReac Type Severity Reaction Status Date / Time amoxicillin Allergy Rash Verified 08/30/25 16:58 gadobenic acid (From AdvReac Difficulty Verified 08/30/25 16:58 contrast - MRI) Breathing iohexol (From contrast - CT, AdvReac Difficulty Verified 08/30/25 16:58 X-RAY) Breathing Review of Systems Review of Systems: ROS unobtainable: Yes unobtainable due to mental status Constitutional: Constitutional: Reports as per HPI [facility] Past Medical History Medical History Colon cancer screening Dislodged gastrostomy tube Erosive gastritis Aphasia Encephalopathy Conjunctivitis Protein calorie malnutrition Gastroesophageal reflux disease Hypothyroidism Rectal bleeding Generalized weakness Unwitnessed fall Chronic hyponatremia Chronic anemia Cerebrovascular accident With left-sided residual weakness. Congestive heart failure Echocardiogram on 07/17/2021 showed normal LV chamber dimension and function with an estimated EF of 65 to 70% and grade 1 diastolic dysfunction with mild pulmonary hypertension estimated pulmonary arterial systolic pressure of 37 mmHg. Acute GI bleeding Urinary tract infection COVID (08/2021) Pneumonia HCAP (healthcare-associated pneumonia) DVT prophylaxis Stroke UTI (urinary tract infection) Sepsis Alcohol dependence Adult failure to thrive Hypokalemia Acute ischemic stroke Orthostatic hypotension Hypokalemia Tobacco dependence Hypertension Surgical History Surgical History History of excision of testicular mass With benign histology. Family History Family History Father Chronic obstructive pulmonary disease Congestive heart failure Hypertension Mother Abdominal aortic aneurysm rupture Daughter Type 1 diabetes mellitus Social History Social History Social History: The patient lives with his brother The patient has 3 children. And is disabled. The patient states that he likes to drink whiskey and does not like to drink beer. The patient is single and unemployed Surrogate decision maker: Bere Rushjewelshoda, sister. Code status: Full code. Smoking packs per day: 0.5 Smoking cigarettes per day: 10.0 Years smoked: 21 Smoking pack-years: 10.50 Smoking status: Current every day smoker Tobacco type: cigarettes Additional smoking assessment comments: patient on nicotine patch Alcohol intake: former Alcohol use details: None Substance use: former Substance use type: marijuana Other substance usage details: 200ml whiskey/day Do You Feel Safe in your Home?: Yes Lack of Transportation: No Lack of Food: Never True Current Housing: I Have Housing Concerned About Future Housing: No Difficulty Paying Gas/Electric Bills: No Difficulty Paying for Meds: No Currently Unemployed: YES Education: Associate Degree Difficulty w/ Childcare or Family Care: No Additional living arrangements comments: Resident at [facility]. Additional occupation/education comments: Unemployed. Spiritual care concerns: No Exam Narrative: GENERAL: Well-appearing, well-nourished, and in no acute distress. HEAD: Normocephalic, atraumatic. EYES: PERRLA and EOMI. staring to the left ENT: Nares clear, no rhinorrhea or epistaxis. Mucous membranes moist. NECK: Supple. CHEST: Clear to auscultation. No respiratory distress. HEART: Tachycardia No murmur heard. Normal peripheral pulses. ABDOMEN: Soft, nontender, nondistended, normal active bowel sounds. EXTREMITIES: Normal range of motion. No edema. SKIN: Warm, dry, no rash. NEURO: No focal deficits. Alert and oriented x2. PSYCH: Normal mood and affect. Course Course Emergency Course: Patient is much more coherent from the time he got to the ER. He is able to answers in short sentences. Did inform him and the family about his lab work, CT findings. Discussed with Dr. Cueva recommended MRI and EEG in the morning Vital Signs Vital signs: Vital Signs Pulse Rate 136 H 08/30/25 16:14 Respiratory Rate 17 08/30/25 16:14 Pulse Oximetry 85 L 08/30/25 16:14 Temperature 36.0 C L 08/30/25 16:18 Pulse Rate 113 H 08/30/25 16:47 Respiratory Rate 18 08/30/25 16:18 Blood Pressure 140/106 H 08/30/25 16:47 Pulse Oximetry 88 L 08/30/25 16:18 Oxygen Delivery Room Air 08/30/25 16:18 Oxygen Flow Rate 6 08/30/25 16:18 MDM - Neuro Symptoms/Deficit Differential Diagnosis Differential diagnosis: Likely subarachnoid hemorrhage, cerebrovascular accident, transient cerebral ischemia and other (post ictal phase ) Medical Records Attestation: I reviewed the patient's medical records. Lab Data Attestation: I reviewed the patient's lab results. 08/30/25 15:58 08/30/25 15:58 Labs: Lab Results 08/30/25 08/30/25 08/30/25 Range/Units 15:58 16:11 17:26 WBC 6.7 (4.5-10.0) K/mm3 RBC 3.78 L (4.6-6.20) M/mm3 Hgb 12.4 L D (14.0-18.0) g/dL Hct 36.0 L (42.0-52.0) % MCV 95.2 (80-100) fl MCH 32.8 (26-34) pg MCHC 34.4 (32-36) g/dl RDW 13.8 (11.5-14.5) % Plt Count 297 D (150-375) k/mm3 MPV 8.4 (7.4-10.4) fl Immature Gran % (Auto) 0.3 (0-0.5) % Neut % (Auto) 40.9 L (45.5-73.1) % Lymph % (Auto) 48.7 H (18.3-44.2) % [place] % (Auto) 7.0 (2.6-8.5) % Eos % (Auto) 1.6 (0-4.4) % Baso % (Auto) 1.5 H (0.2-1.2) % Lymph # (Auto) 3.27 H (0.9-3.2) K/mm3 [place] # (Auto) 0.5 (0.1-0.6) K/mm3 Eos # (Auto) 0.1 (0-0.3) K/mm3 Baso # (Auto) 0.1 (0.0-0.1) K/mm3 Abs Immat Gran (auto) 0.02 (0.00-0.031) K/mm3 Absolute Neuts (auto) 2.8 (1.3-6.7) K/mm3 Absolute Nucleated RBC 0.000 (0.0-0.012) K/mm3 Nucleated RBC % 0.0 (0.0-0.2) % PT 12.6 (11.1-14.7) Seconds INR 0.9 APTT 31.9 (22.3-36.8) Seconds Sodium 121 L (137-145) mmol/L Potassium 4.7 (3.4-5.0) mmol/L Chloride 89 L (98-107) mmol/L Carbon Dioxide 25 (22-30) mmol/L Anion Gap 7 (4-12) mmol/L BUN 15 (9-20) mg/dL Creatinine 0.73 (0.7-1.3) mg/dL Estim Creat Clear Calc 81 ml/min Estimated GFR > 60 (59 - ) Glucose 114 H (65-110) mg/dL POC Capillary Glucose 146 H (65-105) mg/dl Calcium 9.0 (8.4-10.2) mg/dL Total Bilirubin 0.5 (0.2-1.3) mg/dL AST 28 (17-59) U/L ALT 15 (6-50) U/L Alkaline Phosphatase 82 (38-126) U/L Troponin I < 0.012 (0.000-0.034) ng/mL Total Protein 7.5 (6.3-8.2) g/dL Albumin 4.6 (3.5-5.1) g/dL Urine Color Yellow (Yellow) Urine Appearance Clear (Clear) Urine pH 7.0 (5.0-9.0) Ur Specific [place] 1.018 (1.001-1.035) Urine Protein Trace (Negative) mg/dL Urine Glucose (UA) Negative (Negative) mg/dL Urine Ketones Negative (Negative) mg/dL Ur Blood (Man) Negative (Negative) Urine Nitrate Negative (Negative) Urine Bilirubin Negative (Negative) Urine Urobilinogen 0.2 (<2.0) mg/dL Leukocyte Esterase Rfl Trace H (Negative) LAMONTE/UL Urine RBC 0-2 (0-2) /hpf Urine WBC 0-5 (0-3) /hpf Ur Squamous Epith Cells None seen (Few) /hpf Urine Bacteria None seen /hpf Urine Casts 0-2 Levetiracetam Pending Ethyl Alcohol < 10 (<10) mg/dL Imaging Data Radiologist's impression: ITS Impressions Head CT 08/30/25 15:50 IMPRESSION: 1. No acute intracranial process. 2. Several old infarcts moderate-sized at the left parietal and occipital lobes, small at the right occipital lobe and a couple additional smaller old lacunar infarcts in the right frontal and left parietal lobe white matter. 3. Age-related changes including moderate diffuse volume loss and mild scattered white matter hypoattenuation consistent with chronic small vessel ischemic disease. Chest X-Ray 08/30/25 16:28 IMPRESSION: 1. Interstitial opacities in both lungs. Differential includes interstitial edema, interstitial pneumonia or chronic interstitial changes. If symptoms persist or worsen, consider a short-term follow-up study or additional imaging for further assessment. Head/Neck CTA 08/30/25 16:39 IMPRESSION: 1. Limited study. There is no gross critical stenosis, occlusion or aneurysm identified ECG Data EKG #1: ECG completion date: 08/30/25 ECG completion time: 16:13 EKG Interpretation: tachycardia (134), atrial fibrillation, no ectopy, widened QRS and RBBB Discharge Plan Discharge Clinical Impression: Acute hyponatremia, Seizure AMS (altered mental status) Qualifiers: Altered mental status type: unspecified Qualified Code(s): R41.82 - Altered mental status, unspecified Patient Disposition: Still a Patient Condition: Stable Patient Language: Sinhala Prescriptions: No Action magnesium citrate [Citroma] Solution 296 ml feeding tube PRN Rx Instructions: If no results after enema acetaminophen [Mapap (acetaminophen)] 325 mg Tablet 650 mg feeding tube Q6H PRN (Reason: Mild Pain (1-5) Or Fever) Qty: 30 0RF gabapentin [Neurontin] 800 mg tablet 600 mg feeding tube TID Qty: 1 0RF lisinopril 20 mg tablet 20 mg feeding tube DAILY hydroxyzine HCl 25 mg Tablet 25 mg PO Q8HR PRN (Reason: Anxiety) Qty: 30 0RF Follow-up/Referrals: Dominic,NATHANIEL Temple [Primary Care Provider, [facility]] Time of Disposition: 18:04
[2025-08-30] MEDS: MORPHINE SULFATE (*CRX) 4 MG/ML INJ (19:01)
[2025-08-30] MEDS: SODIUM CHLORIDE 0.9% IV 1,000 ML 999 ML IV CONT (19:06)
[2025-08-30] MEDS: levETIRAcetam 500MG/NACL 100ML 500 MG/100 ML BAG 400 MG IVPB (19:36)
--- NOTE | 2025-08-30 20:27 | P.HP_ITS ---
H&P: HPI History of Present Illness Date/Time: 08/30/25 20:27 Chief Complaint: Altered Mental Status Narrative: 60 y/o M with PMH of hypothyroidism, seizures, chronic hyponatremia, CVA with residual left-sided deficits, CHF, previous alcohol abuse (last drink 2 years ago), and hypertension presents here with altered mental status. The patient presents here from home via EMS on 08/30 for further evaluation of altered mental status. His last known well was at 8:00 p.m. yesterday on 08/29. Patient initially made a call to his ex- her around 2:30 p.m. calling for help, did not provide any other information on his voicemail. This prompted EMS to be called. Upon their arrival the patient was confused and began staring off, not able to answer questions appropriately. They also reported a more appr eciable right upper extremity weakness. Per ED nurse, the patient arrived nonresponsive to pain. Noted to have twitching of the face bilaterally, twitching of the right chin, and twitching of the extremities. Abnormal muscle movements would not occur bilaterally, but appear to affect 1 area at a time and seemed worse on the right. He was also noticed to have nystagmus and a gaze deviation. He has a neurological history significant for CVA with left-sided deficits and seizure disorder. Patient also has a history of alcohol abuse, however has had not had a drink in the last [address] and CTA of the head/neck were completed in showed no acute occlusion or stenosis. He was started on Keppra and began improving, remained mildly agitated but able to follow commands with a lot of redirection, able to state name. Family at the bedside in the emergency department reported he recently finished antibiotics for a UTI. He also has a history of noncompliance with his medications/eating and previously required a G-tube for approximately 2 months which has since been discontinued. Patient now more alert and reporting he became all screwed up around 11:30 a.m. this afternoon. Denies urinary or bowel incontinence. Patient denies any aura or seizure he is aware of this afternoon. Denies chest pain, abdominal pain, focal weakness, focal numbness, cough, weight gain, LE edema, fe taylor, nausea, vomiting, or shortness of breath. Reporting visual changes but unable to expand on them, dysarthria, and word finding difficulty. Initial VS at presentation: 96.8? F, HR 136, R 17, 153/118, and 85% on room air. Now 96% on room air. ED workup showed: No leukocytosis, hemoglobin 12.4 (baseline appears to be 8- 9), sodium 121, creatinine 0.73 and GFR >60, glucose 114, lactic 2.1, initial troponin negative, and UA showed trace leuk esterase otherwise unremarkable. Ethanol negative. Head CT showed no acute intracranial process, several old infarcts moderate-sized at the left parietal and occipital lobes, small the right occipital lobe in a couple additional smaller old lacunar infarcts in the right frontal and left parietal lobes, age related changes. CXR showed interstitial opacities in both lungs. Head/neck CTA showed no gross critical stenosis, occlusion, or aneurysm identified however limited study. Review of Systems Review of Systems: All systems reviewed & are unremarkable except as noted in HPI and below PMFSH Past Medical History Medical History Alcoholic cirrhosis of liver COPD (chronic obstructive pulmonary disease) HLD (hyperlipidemia) Atrial fibrillation Colon cancer screening Erosive gastritis Aphasia Encephalopathy Protein calorie malnutrition Gastroesophageal reflux disease Hypothyroidism Chronic hyponatremia Chronic anemia Cerebrovascular accident With left-sided residual weakness. Congestive heart failure Echocardiogram on 07/17/2021 showed normal LV chamber dimension and function with an estimated EF of 65 to 70% and grade 1 diastolic dysfunction with mild pulmonary hypertension estimated pulmonary arterial systolic pressure of 37 mmHg. COVID (08/2021) DVT prophylaxis Alcohol dependence last drink in 2022 Adult failure to thrive Orthostatic hypotension Tobacco dependence Hypertension Surgical History Surgical History History of excision of testicular mass With benign histology. Family History Family History Father Chronic obstructive pulmonary disease Congestive heart failure Hypertension Mother Abdominal aortic aneurysm rupture Daughter Type 1 diabetes mellitus Social History Social History Social History: The patient lives with his brother The patient has 3 children. And is disabled. The patient states that he likes to drink whiskey and does not like to drink beer. The patient is single and unemployed Surrogate decision maker: Bere Gagnon, sister. Code status: Full code. Smoking packs per day: 1 Smoking cigarettes per day: 20.0 Years smoked: 25 Smoking pack-years: 25.00 Smoking status: Current every day smoker Tobacco type: cigarettes Additional smoking assessment comments: patient on nicotine patch Alcohol intake: former Alcohol use details: None Substance use: never Substance use type: does not use Other substance usage details: 200ml whiskey/day Do You Feel Safe in your Home?: Yes Lack of Transportation: No Lack of Food: Never True Current Housing: I Have Housing Concerned About Future Housing: No Difficulty Paying Gas/Electric Bills: No Difficulty Paying for Meds: No Currently Unemployed: No Education: High School Diploma/GED Difficulty w/ Childcare or Family Care: No Additional living arrangements comments: Resident at [facility]. Additional occupation/education comments: Unemployed. Spiritual care concerns: No Meds Home Medications and Allergies Home Medications ?Medication ?Instructions ?Recorded ?Confirmed ?Type hydroxyzine HCl 25 mg tablet 25 mg PO Q8HR PRN Anxiety #30 tabs 11/25/22 05/05/24 Rx lisinopril 20 mg tablet 20 mg feeding tube DAILY 05/05/24 History magnesium citrate (Citroma oral 296 ml feeding tube DC N 07/13/23 05/05/24 History solution) acetaminophen 325 mg tablet (Mapap 650 mg (2 x 325 mg) feeding tube 07/22/23 05/05/24 Rx (acetaminophen)) Q6H PRN Mild Pain (1-5) Or F ever #30 tabs gabapentin 800 mg tablet 600 mg (0.75 x 800 mg) feedi ng 07/22/23 05/05/24 Rx (Neurontin) tube TID #1 tablet hydrocodone 7.5 mg-acetaminophen tablet PO Q12H PRN pa in 08/30/25 History 325 mg tablet levetiracetam 1,000 mg tablet 2,000 mg PO Q12H 5 08/30/25 History Allergies Allergy/AdvReac Type Severity Reaction Status Date / Time amoxicillin Allergy Rash Verified 08/30/25 16:58 gadobenic acid (From AdvReac Difficulty Verified 08/30/25 16:58 contrast - MRI) Breathing iohexol (From contrast - CT, AdvReac Difficulty Verified 08/30/25 16:58 X-RAY) Breathing Vital Signs Vital Signs - 24 hr 08/30/25 16:14 08/30/25 16:15 08/30/25 16:17 Temperature Pulse Rate 136 H 130 H 140 H Respiratory Rate 17 16 27 H Blood Pressure 153/118 H Pulse Oximetry 85 L 87 L 91 Oxygen Delivery Oxygen Flow Rate 08/30/25 16:18 08/30/25 16:18 08/30/25 16:18 Temperature 96.8 F L Pulse Rate 139 H 144 H 141 H Respiratory Rate 22 H 18 20 Blood Pressure 162/121 H 150/110 H Pulse Oximetry 95 88 L 96 Oxygen Delivery Room Air Oxygen Flow Rate 6 08/30/25 16:23 08/30/25 16:23 08/30/25 16:24 Temperature Pulse Rate 144 H 144 H 139 H Respiratory Rate 28 H 19 Blood Pressure 153/120 H 162/121 H Pulse Oximetry 99 98 Oxygen Delivery Oxygen Flow Rate 08/30/25 16:26 08/30/25 16:30 08/30/25 16:31 Temperature Pulse Rate 116 H 111 H 116 H Respiratory Rate 19 25 H 20 Blood Pressure 130/105 H 116/97 H Pulse Oximetry Oxygen Delivery Oxygen Flow Rate 08/30/25 16:40 08/30/25 16:43 08/30/25 16:45 Temperature Pulse Rate 128 H 119 H 120 H Respiratory Rate 24 H 22 H Blood Pressure 140/106 H Pulse Oximetry Oxygen Delivery Oxygen Flow Rate 08/30/25 16:47 08/30/25 17:10 08/30/25 17:11 Temperature Pulse Rate 113 H 122 H 118 H Respiratory Rate 22 H 21 H Blood Pressure 140/106 H 129/104 H Pulse Oximetry Oxygen Delivery Oxygen Flow Rate 08/30/25 17:15 08/30/25 17:20 08/30/25 17:30 Temperature Pulse Rate 120 H 112 H 105 H Respiratory Rate 19 20 14 Blood Pressure 122/100 H 119/100 H Pulse Oximetry 100 100 100 Oxygen Delivery Oxygen Flow Rate 08/30/25 17:31 08/30/25 17:40 08/30/25 17:45 Temperature Pulse Rate 108 H 107 H 109 H Respiratory Rate 14 12 19 Blood Pressure 95/75 L Pulse Oximetry 99 Oxygen Delivery Oxygen Flow Rate 08/30/25 17:50 08/30/25 18:00 08/30/25 18:01 Temperature Pulse Rate 96 97 Respiratory Rate 12 12 Blood Pressure 117/95 H 117/96 H Pulse Oximetry 100 100 Oxygen Delivery Oxygen Flow Rate 08/30/25 18:10 08/30/25 18:46 08/30/25 18:50 Temperature Pulse Rate 94 94 103 H Respiratory Rate 15 15 15 Blood Pressure 111/97 H 108/91 H Pulse Oximetry Oxygen Delivery Oxygen Flow Rate 08/30/25 19:00 08/30/25 19:01 08/30/25 19:05 Temperature Pulse Rate 99 95 95 Respiratory Rate 15 20 Blood Pressure 120/97 H 110/91 H Pulse Oximetry 97 96 93 Oxygen Delivery Oxygen Flow Rate 08/30/25 19:15 08/30/25 19:20 08/30/25 19:30 Temperature Pulse Rate 93 87 Respiratory Rate 15 Blood Pressure 111/91 H 110/91 H Pulse Oximetry 97 95 96 Oxygen Delivery Oxygen Flow Rate 08/30/25 19:31 08/30/25 20:00 Temperature 97.7 F Pulse Rate 95 95 Respiratory Rate 21 H Blood Pressure 110/91 H Pulse Oximetry 94 96 Oxygen Delivery Oxygen Flow Rate Exam Narrative: LUE weakness. +dysarthria and word finding difficulty. Const: General: comfortable and no acute distress Other: , male, frail, chronically ill-appearing HENMT: Face/Nose/Sinus: Normal nares present Mouth: Yes dry mucous membranes Eyes: General: appearance normal, both eyes and all related structures Sclera: sclerae normal Pupils: Equal, round and reactive pupils present EOM: EOMs intact bilaterally Resp: Effort & Inspection: normal respiratory effort Auscultation: clear to auscultation bilaterally Cardio: Rate: regular rate Rhythm: regular rhythm Other: S1-S2 present without murmur, rub, ectopy GI: Other: Abdomen soft, nondistended, nontender. Normoactive bowel sounds in all quadrants. Skin: General skin exam: normal color and no rashes or lesions noted Wounds: no wounds Neuro: Other: A&O x3, poor situational recall. Generalized weakness noted, +4 in all extremities. However trace weakness noted in the left upper extremity compared to the right upper extremity, chronic per patient. +dysarthria and word-finding difficulty. No nystagmus noted, no gaze deviation, no facial palsy. No sensory deficits. Extrem: General: normal to inspection Psych: Other: Fair to poor insight and judgment at present, pleasant. No agitation noted. No restlessness. H&P: Results Labs Labs: Short CBC 08/30/25 Range/Units 15:58 WBC 6.7 (4.5-10.0) K/mm3 Hgb 12.4 L D (14.0-18.0) g/dL Hct 36.0 L (42.0-52.0) % Plt Count 297 D (150-375) k/mm3 BMP 08/30/25 15:58 Sodium 121 L Potassium 4.7 Chloride 89 L Carbon Dioxide 25 BUN 15 Creatinine 0.73 Glucose 114 H Calcium 9.0 Cardiac Enzymes 08/30/25 Range/Units 15:58 Troponin I < 0.012 (0.000-0.034) ng/mL Liver Function 08/30/25 Range/Units 15:58 Total Bilirubin 0.5 (0.2-1.3) mg/dL AST 28 (17-59) U/L ALT 15 (6-50) U/L Alkaline Phosphatase 82 (38-126) U/L Albumin 4.6 (3.5-5.1) g/dL Urine 08/30/25 Range/Units 17:26 Urine Color Yellow (Yellow) Urine Appearance Clear (Clear) Urine pH 7.0 (5.0-9.0) Ur Specific [place] 1.018 (1.001-1.035) Urine Protein Trace (Negative) mg/dL Urine Glucose (UA) Negative (Negative) mg/dL Assessment and Plan Assessment and plan (1) AMS (altered mental status): Qualifiers: Altered mental status type: disorientation Qualified Code(s): R41.0 - Disorientation, unspecified Code(s): R41.82 - Altered mental status, unspecified Status: Acute Assessment and Plan: New altered mental status discovered at 2:40 p.m. on 08/30. Last known well at 8:00 p.m. on 08/29. Patient has past medical history significant for multiple strokes with left-sided deficits and seizure disorder. Improving with Keppra. Breakthrough seizures versus new CVA versus combination there of. Current symptoms include who continue dysarthria and word-finding difficulties. Left upper extremity weakness noted, however residual from previous stroke. Increasing suspicion for CVA with breakthrough seizure secondary to stroke. - admission for observation and telemetry - not candidate for thrombolytics or thrombectomy due to time frame and no acute LVO noted on CTA - CXR: Interstitial opacities in both lungs. Differential includes interstitial edema, interstitial pneumonia or chronic interstitial changes. - head CT and CTA head/neck showed no acute findings - neurology consulted, ED spoke with on-call neurologist to recommended MRI and EEG - brain MRI w/wo ordered - echo w/Bubble ordered - neuro checks Q4 - consider PT/OT evaluation if acute CVA noted on MRI - ST eval as the patient has dysarthria on exam - monitor daily labs, check lipid panel and A1C - up ad anatoly or fall precautions - start Atorvastatin 40 mg PO, Plavix 75 mg PO, ASA 81 mg - consider 30 day event monitoring at discharge if abnormalities noted on telemetry (2) Seizure: Code(s): R56.9 - Unspecified convulsions Status: Acute Assessment and Plan: - see above - given Keppra 1500 IV, continue as Keppra 2G BID. Medication refilled on 08/21/25. - check Keppra level - seizure precautions (3) History of stroke: Code(s): Z86.73 - Personal history of transient ischemic attack (TIA), and cerebral infarction without residual deficits Status: Acute Assessment and Plan: - CT Head on 08/30 showed several old infarcts moderate-sized at the left parietal and occipital lobes, small at the right occipital lobe and a couple additional smaller old lacunar infarcts in the right frontal and left parietal lobe white matter. - previous residual left sided deficits (4) Pneumonia: Qualifiers: Laterality: unspecified laterality Lung location: unspecified part of lung Pneumonia type: due to unspecified organism Qualified Code(s): J18.9 - Pneumonia, unspecified organism Code(s): J18.9 - Pneumonia, unspecified organism Status: Acute Assessment and Plan: Patient initially met SIRS criteria due to heart rate and hypoxia. CXR concerning for possibility of pneumonia versus pulmonary edema. No leukocytosis. However lactic was 2.1. Checking procalcitonin. Blood cultures obtained on 08/30, follow. - started on Levaquin on 08/30. - supportive care: Mucinex, Tessalon Perles, Tylenol, DuoNebs (5) Chronic hyponatremia: Code(s): E87.1 - Hypo-osmolality and hyponatremia Status: Acute Assessment and Plan: Has history of chronic hyponatremia, during most recent admission possibly related to too much free water. Sodium levels fluctuated drastically in 2022 which is the most recent lab work available per chart review. Ranged from 127 to as high as 148. Most recently 131 on 07/22/2023. Upon admission the patient's sodium was 121. Has been as low as 116 in 2020. - check serum osmolality, urine osmolality, urine sodium, protein to creatinine ratio, urine creatinine - repeat BMP this evening - neurochecks q4h - IV fluids: 1L bolus -> 125 mL/hr - regular diet (6) CHF (congestive heart failure): Qualifiers: Heart failure type: unspecified Heart failure chronicity: chronic Qualified Code(s): I50.9 - Heart failure, unspecified Code(s): I50.9 - Heart failure, unspecified Status: Acute Assessment and Plan: CXR showed interstitial opacities in both lungs, differential includes interstitial edema/interstitial pneumonia/chronic interstitial changes. - check BNP - no evidence of volume overload on exam - chart reviewed, no previous echo on file (7) Atrial fibrillation: Qualifiers: Atrial fibrillation type: unspecified chronic Qualified Code(s): I48.20 - Chronic atrial fibrillation, unspecified Code(s): I48.91 - Unspecified atrial fibrillation Status: Acute Assessment and Plan: Initial EKG showed atrial far/tachycardia with RVR, rate 134. History of atrial fibrillation. HR now improved with IV fluids, currently ranging in the 80s. Will repeat EKG now. Plan BMP was repeated this evening to trend the patient's sodium (121 -> 122). Patient developed mild hyperkalemia, K 5.4. Will treat with calcium gluconate and sodium bicarbonate. recheck at 1:00 a.m.. Diet: Regular GI Prophylaxis: N/a DVT Prophylaxis: SCDs IV fluids: 1L -> 125 mL/hr Lines/Tubes: Peripheral IV Code Status: Full code Quality VTE Prophylaxis VTE prophylaxis: mechanical ordered Hospitalist MIPS Advance Care Plan I have confirmed that the patient's Advanced Care Plan is present, code status is documented, or surrogate decision maker is listed in patient medical record.: Yes Medication Reconciliation I have utilized all available resources to obtain, update and review the patients current medications (includes all prescriptions, OTC, herbals, cannabis, and nutritional supplements).: Yes
--- NOTE | 2025-08-30 20:29 | ADMGEN ---
This patient, Simon Barraza, was admitted to IMU Room 231-01. Patient/family oriented to hospital policies and general routines including ID bracelet, bed and alarms, visiting hours, pain management, procedures, bathroom and other care routines, personal items, smoking policy, room service/diet, and visiting hours. Information on how to activate the Rapid Response Team has been discussed. Patient/Family are encouraged to report perceived risks to care and to ask questions if they do not understand what they are told or what they should do.
[2025-08-30] MEDS: SODIUM CHLORIDE 0.9% IV 1,000 ML 125 ML IV CONT (20:39)
[2025-08-30 22:21] LABS: Anion Gap 11 mmol/L (4-12); Blood Urea Nitrogen 14 mg/dL (9-20); Calcium 8.3 mg/dL (8.4-10.2); Carbon Dioxide 19 mmol/L (22-30); Chloride 92 mmol/L (98-107); Estimated CRCL calculation 99 ml/min; Estimated Glomerular Filt Rate > 60; Glucose 152 mg/dL (65-110); Potassium 5.4 mmol/L (3.4-5.0); Sodium 122 mmol/L (137-145)
[2025-08-30 22:41] LABS: Procalcitonin 0.2 ng/mL
[2025-08-30] MEDS: CALCIUM GLUC 1,000 MG/NS 50 ML 1,000 MG/50 ML BAG 100 MG IVPB (23:02)
[2025-08-30] MEDS: SODIUM BICARBONATE 8.4% 50 MEQ/50 ML SYRINGE IV PUSH (23:03)
[2025-08-30] MEDS: levoFLOXacin 750 MG/D5W 150 ML 750 MG/150 ML BAG 100 MG IVPB (23:35)
[2025-08-31] VITALS (14 sets, daily range): BP systolic 119–145; BP diastolic 86–99; PULSE 74–115; RESP 18–24; TEMP 36.5–36.9; O2SAT 95–100; BMI 18.6
--- NOTE | 2025-08-31 | ECHO_ITS ---
Patient Info Name: Simon Barraza Age: 60 years : 1965 Gender: Male Ht: 72 in Wt: 231 lbs BSA: 2.33 m2 HR: 106 bpm BP: 133 / 95 mmHg Heart Rhythm: Tachycardia Technical Quality: Good Exam Date: 08/31/2025 9:35 AM Patient Status: I Admit Date: 08/31/2025 Exam Type: CA echo dop bubble study w con Complete two-dimentional, color flow and Doppler transthoracic echocardiogram is performed with agitated saline and with contrast to opacify the left ventricle and to improve the delineation of the left ventricle endocardial borders. Staff Referring Physician: Navjot Garcia MD Usability Architect: Vanessa Jolley Attending Provider: Arturo Abraham Contrast/Agitated Saline Contrast/Ag. Saline: Definity Amount: 2.00 ml Contrast/Ag. Saline: Agitated Saline Amount: 20.00 ml Summary 1. Left ventricular chamber dimension is mildly enlarged. 2. Left ventricular systolic function is severely reduced, estimated at <15. 3. There is no increased left ventricular wall thickness. 4. The left ventricular diastolic function is abnormal. 5. The apical inferior wall, mid inferior wall, basal inferoseptal, mid inferoseptal, basal anteroseptal, mid anteroseptal, and mid inferolateral wall are akinetic. 6. The anterior wall, anterolateral wall, apical septum, apical cap, and basal inferior wall are hypokinetic. 7. Right ventricular chamber dimension is mildly enlarged. 8. Right ventricular systolic function is reduced. 9. Intact interatrial septum visualized by color flow and agitated saline imaging. 10. There is mild mitral valve regurgitation. 11. There is mild tricuspid valve regurgitation. Left Ventricle Left ventricular chamber dimension is mildly enlarged. Left ventricular systolic function is severely reduced, estimated at <15. There is no increased left ventricular wall thickness. The left ventricular diastolic function is abnormal. The apical inferior wall, mid inferior wall, basal inferoseptal, mid inferoseptal, basal anteroseptal, mid anteroseptal, and mid inferolateral wall are akinetic. The anterior wall, anterolateral wall, apical septum, apical cap, and basal inferior wall are hypokinetic. All other melendez appear normal. Right Ventricle Right ventricular chamber dimension is mildly enlarged. Right ventricular systolic function is reduced. Left Atria Left atrial chamber dimension is mildly enlarged. Right Atria Right atrial chamber dimension is normal. Atrial Septum Intact interatrial septum visualized by color flow and agitated saline imaging. Aortic Valve The aortic valve is trileaflet. There is mild aortic valve sclerosis. There is no aortic valve stenosis. There is trace aortic valve regurgitation. Pulmonic Valve The pulmonic valve is normal. There is no pulmonic valve stenosis. There is trace pulmonic regurgitation. Mitral Valve The mitral valve has normal leaflets. There is no mitral valve stenosis. There is mild mitral valve regurgitation. Tricuspid Valve The tricuspid valve leaflets are normal. There is no significant tricuspid valve stenosis. There is mild tricuspid valve regurgitation. Pericardium/Pleural The pericardium appears normal. There is no pericardial effusion. Inferior Vena Cava Dilated inferior vena cava with <50% collapse upon inspiration consistent with elevated right atrial pressure, 15 mmHg. Aorta The aortic root size at the sinus of Valsalva is normal. Left Ventricular Outflow Tract Name Value Normal LVOT 2D LVOT Diameter 2.0 cm LVOT Doppler LVOT Peak Velocity 51 cm/s LVOT Peak Gradient 1 mmHg LVOT Mean Gradient 1 mmHg LVOT VTI 7 cm LVOT Stroke Volume 20 ml LVOT CO 2.2 l/min LVOT CI 0.9 l/min/m2 Pulmonic Valve Name Value Normal RVOT Doppler RVOT Peak Velocity 31 cm/s RVOT Peak Gradient 0 mmHg PV Doppler PV Peak Velocity 49 cm/s PV Peak Gradient 1 mmHg Mitral Valve Name Value Normal MV Diastolic Function MV E Peak Velocity 73 cm/s MV A Peak Velocity 23 cm/s MV E/A 3.2 MV Decel Time (PW) 164 ms MV Annular TDI MV E/e' (Septal) 14.4 MV E/e' (Lateral) 6.5 MV E/e' (Average) 10.4 Tricuspid Valve Name Value Normal Estimated PAP/RSVP RA Pressure 15 mmHg <=5 Aortic Valve Name Value Normal AV Doppler AV Peak Velocity 85 cm/s AV Peak Gradient 3 mmHg AV Area (Cont Eq Rudi) 1.8 cm2 AV DI (Rudi) 0.60 AV Regurgitation 2D LVOT Area 3.0 cm2 Ventricles Name Value Normal LV Dimensions 2D/MM IVS Diastolic Thickness (2D) 0.8 cm 0.6-1.0 LVID Diastole (2D) 5.2 cm 4.2-5.8 LVIW Diastolic Thickness (2D) 0.7 cm 0.6-1.0 LVID Systole (2D) 4.9 cm 2.5-4.0 LVOT Diameter 2.0 cm LV Mass (2D Cubed) 135.19 g 88.00-224.00 LV Mass Index (2D Cubed) 58 g/m2 49-115 Relative Wall Thickness (2D) 0.28 <=0.42 LV Fractional Shortening/Ejection Fraction 2D/MM LV Fractional Shortening (2D) 5 % 25-43 LV EF (2D Teichholz) 12 % LV Diastolic Volume (4C MOD) 166 ml LV EF (4C MOD) 34 % LV Diastolic Volume (2C MOD) 142 ml LV EF (2C MOD) 16 % LV Diastolic Volume (BP MOD) 154 ml 62-150 LV Diastolic Volume Index (BP MOD) 66 ml/m2 34-74 LV Systolic Volume (BP MOD) 115 ml 21-61 LV Systolic Volume Index (BP MOD) 49 ml/m2 11-31 LV EF (BP MOD) 25 % 52-72 LV Diastolic Length (4C) 9.2 cm LV Systolic Length (4C) 8.8 cm LV Stroke Volume (4C MOD) 56 ml Atria Name Value Normal LA Dimensions LA Volume (4C A-L) 60 ml LA Volume (BP A-L) 67 ml RA Dimensions RA Systolic Major [place] Length (4C) 3.9 cm 2.1-2.7 RA Area (4C) 9.2 cm2 <=18.0 Wall Motion Scoring Wall Motion Scoring Index: 2.35 Report Signatures
[2025-08-31 01:25] LABS: Hematocrit 36.2 % (42.0-52.0); Hemoglobin 12.5 g/dL (14.0-18.0); Immature Granulocyte Percent A 0.4 % (0-0.5); Lymphocytes Absolute Auto 0.88 K/mm3 (0.9-3.2); Mean Corpuscular HGB Conc 34.5 g/dl (32-36); Mean Corpuscular Hemoglobin 33.4 pg (26-34); Mean Corpuscular Volume 96.8 fl (80-100); Nucleated Red Blood Cells Absolute Auto 0.000 K/mm3 (0.0-0.012); Nucleated Red Blood Cells Perc 0.0 % (0.0-0.2); Platelet Count Result 255 k/mm3 (150-375); Red Blood Count 3.74 M/mm3 (4.6-6.20); White Blood Count 9.6 K/mm3 (4.5-10.0)
[2025-08-31 01:39] LABS: Anion Gap 8 mmol/L (4-12); Blood Urea Nitrogen 14 mg/dL (9-20); Calcium 8.5 mg/dL (8.4-10.2); Carbon Dioxide 24 mmol/L (22-30); Chloride 90 mmol/L (98-107); Cholesterol 163 mg/dL (0-200); Estimated CRCL calculation 91 ml/min; Estimated Glomerular Filt Rate > 60; Glucose 164 mg/dL (65-110); HDL Direct 68 mg/dL; Potassium 5.9 mmol/L (3.4-5.0); Sodium 122 mmol/L (137-145); Triglycerides 73 mg/dL (<150)
[2025-08-31 01:50] LABS: Hemoglobin A1C 5.9 % (<5.7)
[2025-08-31 02:09] LABS: Alanine Aminotransferase 32 U/L (6-50); Albumin Level 4.3 g/dL (3.5-5.1); Alkaline Phosphatase 71 U/L (38-126); Anion Gap 7 mmol/L (4-12); Aspartate Amino Transferase 42 U/L (17-59); Bilirubin,Total 0.5 mg/dL (0.2-1.3); Blood Urea Nitrogen 14 mg/dL (9-20); Calcium 8.5 mg/dL (8.4-10.2); Carbon Dioxide 25 mmol/L (22-30); Chloride 90 mmol/L (98-107); Estimated CRCL calculation 93 ml/min; Estimated Glomerular Filt Rate > 60; Glucose 164 mg/dL (65-110); Magnesium 1.9 mg/dL (1.6-2.3); Potassium 6.1 mmol/L (3.4-5.0); Sodium 122 mmol/L (137-145); Total Protein 7.0 g/dL (6.3-8.2)
--- NOTE | 2025-08-31 02:44 | ECG_ITS ---
Test Date: 2025-08-31 03:51:07 Measurements Intervals Colbert Rate: 89 P: 116 MD: 164 QRS: -79 QRSD: 170 T: 128 QT: 391 QTc: 478 Interpretive Statements SINUS RHYTHM IVCD, WITH FEATURES OF RIGHT BUNDLE BRANCH BLOCK AND LEFT BUNDLE BRANCH BLOCK INFERIOR INFARCT, AGE INDETERMINATE BASELINE ARTIFACT- I, III, AVR, AVL, AVF ABNORMAL ECG Compared to ECG 08/30/2025 16:13:56 Atrial flutter no longer present Electronically Signed On 08-31-2025 06:24:06 CDT by James Cox D.O.
[2025-08-31] MEDS: SODIUM ZIRCONIUM CYCLOSILICATE 10 GM POWD.PACK PO ×3 (03:08→18:23)
[2025-08-31] MEDS: INSULIN HUMAN REGULAR (*BKC) 100 UNITS/ML 10 UNITS IV PUSH (03:08)
[2025-08-31] MEDS: DEXTROSE 50% 25 GM/50 ML SYRINGE IV PUSH (03:08)
[2025-08-31] MEDS: CALCIUM GLUC 2,000 MG/NS 100ML 2,000 MG/100 ML BAG 100 MG IVPB (03:08)
[2025-08-31] MEDS: SODIUM CHLORIDE 0.9% IV 1,000 ML 125 ML IV CONT (04:20)
--- NOTE | 2025-08-31 04:21 | P.PNCROSS_ITS ---
Event Note Event Note Event Note: Nurse called to notify potassium increased from 5.4-6.1 after given calcium glu conate and sodium bicarbonate. Readministered calcium gluconate 2 g IV x1, dextrose 25 g IV x1, regular insulin 10 units IV x1, start Lokelma 10 g p.o. t.i.d.. Continue telemetry and check EKG. Another BMP scheduled for approximately 2 hours status post treatment.
[2025-08-31 05:39] LABS: Anion Gap 10 mmol/L (4-12); Blood Urea Nitrogen 14 mg/dL (9-20); Calcium 9.1 mg/dL (8.4-10.2); Carbon Dioxide 23 mmol/L (22-30); Chloride 90 mmol/L (98-107); Estimated CRCL calculation 99 ml/min; Estimated Glomerular Filt Rate > 60; Glucose 160 mg/dL (65-110); Magnesium 1.8 mg/dL (1.6-2.3); Potassium 4.7 mmol/L (3.4-5.0); Sodium 123 mmol/L (137-145)
--- OUTSIDE RECORDS SUMMARY | 2025-08-31 07:35 | XMS_ITS | Clinical Summary ---
Author Organization [facility] Facility Address [address] [place] [id number] Care Team Providers Care Cartoon Designer Name Role Phone Jeanie Ortiz MD Primary Care Provider [phone] Social History Tobacco Use Types Packs/Day Years Used Date Smoking Tobacco: Never Assessed Sex and Gender Information Value Date Recorded Sex Assigned at Not on file Legal Sex Male 12:23 PM EDT Gender Identity Not on file Sexual Orientation Not on file Plan of Treatment Health Maintenance Due Date Last Done Comments Hepatitis B Vaccine (1 of 3 - 19+ 3-dose series) 06/12 Colorectal Cancer Screening: Annual FOBT 2015 Colorectal Cancer Screening: Colonoscopy 2015 Colorectal Cancer Screening: Sigmoidoscopy 2015 Pneumococcal Vaccine: 50+ Years (1 of 1 - PCV) 016 Influenza Vaccine (#1) 2025 10/12/2021 Insurance [place] Medicaid Care Teams Cartoon Designer Relationship Specialty Start Date End Date Jeanie Ortiz MD [address] [place] [id number] PCP - General Family Medicine 08/01/22
--- OUTSIDE RECORDS SUMMARY | 2025-08-31 07:35 | XMS_ITS | Clinical Summary ---
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 Gender Identity Male 11/19/2023 10:21 AM SALES PRODUCT SPECIALIST Sexual Orientation Choose not to disclose 2022 10:21 AM SALES PRODUCT SPECIALIST Obstetrics History Last Filed Vital Signs Vital Sign Reading Time Taken Comments Blood Pressure 111/81 12/25/2023 2:03 PM SALES PRODUCT SPECIALIST Pulse 55 12/25/2023 2:03 PM SALES PRODUCT SPECIALIST Temperature 36 C (96.8 F) 12/25/2023 2:03 PM SALES PRODUCT SPECIALIST Respiratory Rate 18 12/25/2023 2:03 PM SALES PRODUCT SPECIALIST Oxygen Saturation 100% 12/25/2023 2:03 PM SALES PRODUCT SPECIALIST Inhaled Oxygen Concentration - - Weight 64.3 kg (141 lb 11.2 oz) 023 10:35 PM SALES PRODUCT SPECIALIST Height 182.9 cm (6') 11/17/2023 10:35 PM SALES PRODUCT SPECIALIST Body Mass Index 19.22 11/17/2023 10:35 PM SALES PRODUCT SPECIALIST Plan of Treatment Health Maintenance Due Date Last Done Comments Colon Cancer Screening-Colonoscopy 1965 Depression Screening 1965 Hepatitis C Screening 1965 Prostate Cancer Screening-PSA 1965 DTaP/Tdap/Td Vaccine (1 - Tdap) 1977 Hepatitis B Screening 1984 Regular Well Visit/Exam 18-64 1984 Pneumococcal vaccine <65 (1 of 2 - PCV) 1985 Zoster Vaccine (1 of 2) 2016 Influenza Vaccine (#1) 2025 3, 08/26/2023, 10/12/2021 Insurance [facility] [employer] MEDICARE GOLD MEDICARE Advance Directives For more information, please contact: [phone] Documents on File Type Date Recorded Patient Dry Primer Powder Blender Expl anation ADVANCE DIRECTIVE 11/28/2023 1:23 PM POWER OF EXECUTIVE COMPENSATION ANALYST-MEDICAL ADVANCE DIRECTIVE 11/22/2023 3:13 PM JOSE R R OF EXECUTIVE COMPENSATION ANALYST-MEDICAL * Full Code (Latest Code Status on File) Date Activated Date Inactivated Comments 11/17/2023 10:34 PM 11/22/2023 7:13 PM Care Teams Cane Piler Relationship Specialty Start Date End Date Brayden Miranda DO PCP - General Internal Medicine 01/02/24
--- OUTSIDE RECORDS SUMMARY | 2025-08-31 07:35 | XMS_ITS | Encounter Summary ---
Author Organization [facility] Address [address] [place] [address] Care Team Providers Care Supervisor Heavy Equipment Name Role Phone Unavailable Primary Care Provider Unavailabl e Encounter Details Date Type Department Care Team (Latest Contact Info) Description 04/15/2004 Outpatient Historical [facility] [place] [address] [phone] OPEN WOUND OF FINGER (Primary Dx) Social History Tobacco Use Types Packs/Day Years Used Date Smoking Tobacco: Never Assessed Sex and Gender Information Value Date Recorded Sex Assigned at Not on file Legal Sex Male 3:42 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
--- OUTSIDE RECORDS SUMMARY | 2025-08-31 07:35 | XMS_ITS | Clinical Summary ---
Author Organization [address] Address [address] [place] [address] Care Team Providers Care Individualized Education Plan Aide Name Role Phone Unavailable Primary Care Provider [...] = 0.6 oz pur e alcohol) [facility] Sex and Gender Information Value Date Recorded Sex Assigned at Not on file Legal Sex Male 3:42 AM REHAB AID Gender Identity Not on file Sexual Orientation Not on file Last Filed Vital Signs Vital Sign Reading Time Taken Comments Blood Pressure 112/83 01/08/2013 2:28 PM REHAB AID Pulse 97 01/08/2013 2:28 PM REHAB AID Temperature 37.4 C (99.3 F) 01/08/2013 2:28 PM REHAB AID Respiratory Rate 16 01/08/2013 2:28 PM REHAB AID Oxygen Saturation 98% 01/08/2013 2:28 PM REHAB AID Inhaled Oxygen Concentration - - Weight 81.6 kg (180 lb) 01/08/2013 2:28 PM REHAB AID Height 182.9 cm (6') 01/08/2013 2:28 PM REHAB AID Body Mass Index 24.41 01/08/2013 2:28 PM REHAB AID Plan of Treatment Health Maintenance Due Date [...]
--- OUTSIDE RECORDS SUMMARY | 2025-08-31 07:36 | XMS_ITS | Clinical Summary ---
Author Organization [facility] Address [address] [place] [address] Care Team Providers Care Cold Rolling Machine Setter Name Role Phone Jeanie Ortiz MD Primary Care Provider Source Comments [facility],non-owned Affiliates and Associated Physician Practices is amultiple site organization consisting of ambulatory clinics and hospital sitesin [place], [place], [place] and [place]. This disclosure is being madepursuant to the Care Everywhere program and may not contain all information available regarding this patient. 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 Gender Identity Not on file Sexual Orientation [...] 07/17/2013 12:15 PM CDT HIV-1 HIV-2 ANTIBODY [facility] 07/17/2013 12:15 PM CDT from Last 3 Months or Most Recently Relevant to Health Maintenance Results * HIV-1 HIV-2 ANTIBODY (07/17/2013 12:15 PM CDT) Pathologist [facility] HIV-1/HIV-2 Non Reactive Non Reactive 3 7:38 AM CDT [facility] Blood BLOOD SPECIMEN / Unknown 07/17/2013 12:15 PM CDT 07/17/2013 12:23 PM CDT us Wilton Gonzalez MD LAB - CHEMISTRY ORDERABLES Final Result Performing Organization Address City/State/[facility] Co de Phone Number [facility] [address] [place] [address] * HEPATITIS SCREEN ACUTE (07/17/2013 12:15 PM CDT) HAV Antibody IgM Non Reactive Non Reactive 07/17/2013 7:57 PM CDT [facility] HBsAg Non Reactive Non Reactive 07/17/2013 7:57 PM CDT [facility] HBc Antibody IgM Non Reactive Non Reactive 07/17/2013 7:57 PM CDT [facility] HCV Antibody Screen Non Reactive Non Reactive 07/17/2013 7:57 PM CDT [facility] Blood BLOOD SPECIMEN / Unknown 07/17/2013 12:15 PM CDT 07/17/2013 12:23 PM CDT Narrative [facility] - 07/17/2013 7:57 PM CDT Nonreactive - Antibodies to HCV were not detected, result does not exclude early acute HCV infection. Wilton Gonzalez MD LAB - CHEMISTRY ORDERABLES Final Result [facility] [address] [place] [address] from Last 3 Months or Most Recently Relevant to Health Maintenance Insurance [place] MEDICAID - [employer]ETNA [facility] MEDICARE Advance Directives * FULL RESUSCITATION (Latest Code Status on File) Date Activated Date Inactivated Comments 07/17/2013 11:05 AM 07/20/2013 12:02 PM * FULL RESUSCITATION Date Activated Date Inactivated Comments 12/11/2012 12:01 PM 12/14/2012 1:36 PM Care Teams Cold Rolling Machine Setter Relationship Specialty Start Date End Date Jeanie Ortiz MD [address] [place] [address] [address] [place] [id number] PCP - General 09/18/21
--- OUTSIDE RECORDS SUMMARY | 2025-08-31 07:36 | XMS_ITS | Clinical Summary ---
Author Organization [facility] Address [address] [place] [address] Phone Care Team Providers Care Geomorphology Teacher Name Role Phone Jeanie Ortiz MD Primary Care Provider [phone] Allergies No known active allergies Medications furosemide [...] 2025 10/12/2021 Insurance [employer] MEDICA[employer] Care Teams Geomorphology Teacher Relationship Specialty Start Date End Date Jeanie Ortiz MD [address] [place] [address] [address] [place] [address] PCP - General Family Medicine 03/21/21
--- NOTE | 2025-08-31 08:36 | PM.IMPN ---
Progress Note: A&P Assessment and Plan (1) AMS (altered mental status): Qualifiers: Altered mental status type: disorientation Qualified Code(s): R41.0 - Disorientation, unspecified Code(s): R41.82 - Altered mental status, unspecified Status: Acute Assessment and Plan: New altered mental status discovered at 2:40 p.m. on 08/30. Last known well at 8:00 p.m. on 08/29. Patient has past medical history significant for multiple strokes with left-sided deficits and seizure disorder. Improving with Keppra. Breakthrough seizures versus new CVA versus combination there of. Current symptoms include who continue dysarthria and word-finding difficulties. Left upper extremity weakness noted, however residual from previous stroke. Increasing suspicion for CVA with breakthrough seizure secondary to stroke. - admission for observation and telemetry - not candidate for thrombolytics or thrombectomy due to time frame and no acute LVO noted on CTA - CXR: Interstitial opacities in both lungs. Differential includes interstitial edema, interstitial pneumonia or chronic interstitial changes. - head CT and CTA head/neck showed no acute findings - neurology consulted, ED spoke with on-call neurologist to recommended MRI and EEG - brain MRI w/wo ordered - echo w/Bubble ordered - neuro checks Q4 - consider PT/OT evaluation if acute CVA noted on MRI - ST eval as the patient has dysarthria on exam - monitor daily labs, check lipid panel and A1C - up ad anatoly or fall precautions - start Atorvastatin 40 mg PO, Plavix 75 mg PO, ASA 81 mg - consider 30 day event monitoring at discharge if abnormalities noted on telemetry 08/31 -completed MRI screening form with the help of POA -pending MRI -echocardiogram shows less than 15% (2) Seizure: Code(s): R56.9 - Unspecified convulsions Status: Acute Assessment and Plan: - see above - given Keppra 1500 IV, continue as Keppra 2G BID. Medication refilled on 08/21/25. - check Keppra level - seizure precautions (3) History of stroke: Code(s): Z86.73 - Personal history of transient ischemic attack (TIA), and cerebral infarction without residual deficits Status: Acute Assessment and Plan: - CT Head on 08/30 showed several old infarcts moderate-sized at the left parietal and occipital lobes, small at the right occipital lobe and a couple additional smaller old lacunar infarcts in the right frontal and left parietal lobe white matter. - previous residual left sided deficits -pending MRI (4) Pneumonia: Qualifiers: Laterality: unspecified laterality Lung location: unspecified part of lung Pneumonia type: due to unspecified organism Qualified Code(s): J18.9 - Pneumonia, unspecified organism Code(s): J18.9 - Pneumonia, unspecified organism Status: Acute Assessment and Plan: Patient initially met SIRS criteria due to heart rate and hypoxia. CXR concerning for possibility of pneumonia versus pulmonary edema. No leukocytosis. However lactic was 2.1. Checking procalcitonin. Blood cultures obtained on 08/30, follow. - started on Levaquin on 08/30. - supportive care: Mucinex, Tessalon Perles, Tylenol, DuoNebs (5) Chronic hyponatremia: Code(s): E87.1 - Hypo-osmolality and hyponatremia Status: Acute Assessment and Plan: Has history of chronic hyponatremia, during most recent admission possibly related to too much free water. Sodium levels fluctuated drastically in 2022 which is the most recent lab work available per chart review. Ranged from 127 to as high as 148. Most recently 131 on 07/22/2023. Upon admission the patient's sodium was 121. Has been as low as 116 in 2020. - check serum osmolality, urine osmolality, urine sodium, protein to creatinine ratio, urine creatinine - repeat BMP this evening - neurochecks q4h - IV fluids: 1L bolus -> 125 mL/hr - regular diet (6) CHF (congestive heart failure): Qualifiers: Heart failure chronicity: chronic Heart failure type: unspecified Qualified Code(s): I50.9 - Heart failure, unspecified Code(s): I50.9 - Heart failure, unspecified Status: Acute Assessment and Plan: CXR showed interstitial opacities in both lungs, differential includes interstitial edema/interstitial pneumonia/chronic interstitial changes. - check BNP - no evidence of volume overload on exam - chart reviewed, no previous echo on file 08/31 Echocardiogram shows less than 15% Cardiology consulted (7) Atrial fibrillation: Qualifiers: Atrial fibrillation type: unspecified chronic Qualified Code(s): I48.20 - Chronic atrial fibrillation, unspecified Code(s): I48.91 - Unspecified atrial fibrillation Status: Acute Assessment and Plan: Initial EKG showed atrial far/tachycardia with RVR, rate 134. History of atrial fibrillation. HR now improved with IV fluids, currently ranging in the 80s. Cardiology consult Plan BMP was repeated this evening to trend the patient's sodium (121 -> 122). Patient developed mild hyperkalemia, K 5.4. Will treat with calcium gluconate and sodium bicarbonate. recheck at 1:00 a.m.. Diet: Regular GI Prophylaxis: N/a DVT Prophylaxis: SCDs IV fluids: 1L -> 125 mL/hr Lines/Tubes: Peripheral IV Code Status: Full code Subjective Date/time seen: 08/31/25 08:36 Interval history: Patient is AO x3 but still unable to follow commands. Patient left ventricle ejection fraction less than 15percent. Consulted Cardiology. Completed MRI screening form with the POA help. Patient has history multiple CVA. Patient reports that he lives by himself and his friends help for driving. Called POA and update the events including EF which is less 15%. Review of Systems Review of Systems: All systems reviewed & are unremarkable except as noted in HPI and below Exam Narrative: LUE weakness. +dysarthria and word finding difficulty. Const: General: comfortable and no acute distress Other: , male, frail, chronically ill-appearing HENMT: Face/Nose/Sinus: Normal nares present Mouth: Yes dry mucous membranes Eyes: General: appearance normal, both eyes and all related structures Sclera: sclerae normal Pupils: Equal, round and reactive pupils present EOM: EOMs intact bilaterally Resp: Effort & Inspection: normal respiratory effort Auscultation: clear to auscultation bilaterally Cardio: Rate: regular rate Rhythm: regular rhythm Other: S1-S2 present without murmur, rub, ectopy GI: Other: Abdomen soft, nondistended, nontender. Normoactive bowel sounds in all quadrants. Skin: General skin exam: normal color and no rashes or lesions noted Wounds: no wounds Neuro: Cranial nerves: Yes Equal, round and reactive pupils present Other: A&O x3, poor situational recall. Generalized weakness noted, +4 in all extremities. However trace weakness noted in the left upper extremity compared to the right upper extremity, chronic per patient. +dysarthria and word-finding difficulty. No nystagmus noted, no gaze deviation, no facial palsy. No sensory deficits. Extrem: General: normal to inspection Psych: Other: Fair to poor insight and judgment at present, pleasant. No agitation noted. No restlessness. Objective Data Vital Signs Vital Signs: Vital Signs - 24 hr 08/30/25 16:14 08/30/25 16:15 08/30/25 16:17 Temperature Pulse Rate 136 H 130 H 140 H Respiratory Rate 17 16 27 H Blood Pressure 153/118 H Pulse Oximetry 85 L 87 L 91 Oxygen Delivery Oxygen Flow Rate 08/30/25 16:18 08/30/25 16:18 08/30/25 16:18 Temperature 96.8 F L Pulse Rate 139 H 144 H 141 H Respiratory Rate 22 H 18 20 Blood Pressure 162/121 H 150/110 H Pulse Oximetry 95 88 L 96 Oxygen Delivery Room Air Oxygen Flow Rate 6 08/30/25 16:23 08/30/25 16:23 08/30/25 16:24 Temperature Pulse Rate 144 H 144 H 139 H Respiratory Rate 28 H 19 Blood Pressure 153/120 H 162/121 H Pulse Oximetry 99 98 Oxygen Delivery Oxygen Flow Rate 08/30/25 16:26 08/30/25 16:30 08/30/25 16:31 Temperature Pulse Rate 116 H 111 H 116 H Respiratory Rate 19 25 H 20 Blood Pressure 130/105 H 116/97 H Pulse Oximetry Oxygen Delivery Oxygen Flow Rate 08/30/25 16:40 08/30/25 16:43 08/30/25 16:45 Temperature Pulse Rate 128 H 119 H 120 H Respiratory Rate 24 H 22 H Blood Pressure 140/106 H Pulse Oximetry Oxygen Delivery Oxygen Flow Rate 08/30/25 16:47 08/30/25 17:10 08/30/25 17:11 Temperature Pulse Rate 113 H 122 H 118 H Respiratory Rate 22 H 21 H Blood Pressure 140/106 H 129/104 H Pulse Oximetry Oxygen Delivery Oxygen Flow Rate 08/30/25 17:15 08/30/25 17:20 08/30/25 17:30 Temperature Pulse Rate 120 H 112 H 105 H Respiratory Rate 19 20 14 Blood Pressure 122/100 H 119/100 H Pulse Oximetry 100 100 100 Oxygen Delivery Oxygen Flow Rate 08/30/25 17:31 08/30/25 17:40 08/30/25 17:45 Temperature Pulse Rate 108 H 107 H 109 H Respiratory Rate 14 12 19 Blood Pressure 95/75 L Pulse Oximetry 99 Oxygen Delivery Oxygen Flow Rate 08/30/25 17:50 08/30/25 18:00 08/30/25 18:01 Temperature Pulse Rate 96 97 Respiratory Rate 12 12 Blood Pressure 117/95 H 117/96 H Pulse Oximetry 100 100 Oxygen Delivery Oxygen Flow Rate 08/30/25 18:10 08/30/25 18:46 08/30/25 18:50 Temperature Pulse Rate 94 94 103 H Respiratory Rate 15 15 15 Blood Pressure 111/97 H 108/91 H Pulse Oximetry Oxygen Delivery Oxygen Flow Rate 08/30/25 19:00 08/30/25 19:01 08/30/25 19:05 Temperature Pulse Rate 99 95 95 Respiratory Rate 15 20 Blood Pressure 120/97 H 110/91 H Pulse Oximetry 97 96 93 Oxygen Delivery Oxygen Flow Rate 08/30/25 19:15 08/30/25 19:20 08/30/25 19:30 Temperature Pulse Rate 93 87 Respiratory Rate 15 Blood Pressure 111/91 H 110/91 H Pulse Oximetry 97 95 96 Oxygen Delivery Oxygen Flow Rate 08/30/25 19:31 08/30/25 20:00 08/30/25 20:00 Temperature 97.7 F 97.6 F Pulse Rate 95 95 89 Respiratory Rate 21 H 21 H Blood Pressure 110/91 H 113/86 Pulse Oximetry 94 96 92 Oxygen Delivery Oxygen Flow Rate 08/30/25 20:45 08/30/25 20:45 08/30/25 22:00 Temperature Pulse Rate 88 88 84 Respiratory Rate 21 H Blood Pressure Pulse Oximetry 92 Oxygen Delivery Room Air Oxygen Flow Rate 08/30/25 23:45 08/30/25 23:53 08/30/25 23:53 Temperature 97.7 F Pulse Rate 85 86 84 Respiratory Rate 20 20 Blood Pressure 124/87 Pulse Oximetry 97 97 Oxygen Delivery Room Air Oxygen Flow Rate 08/31/25 02:00 08/31/25 03:31 08/31/25 03:31 Temperature Pulse Rate 88 88 88 Respiratory Rate 20 Blood Pressure Pulse Oximetry 97 Oxygen Delivery Room Air Oxygen Flow Rate 08/31/25 04:00 08/31/25 08:00 Temperature 97.7 F 98.3 F Pulse Rate 95 105 H Respiratory Rate 20 18 Blood Pressure 133/95 H 145/99 H Pulse Oximetry 95 99 Oxygen Delivery Oxygen Flow Rate Intake/Output Intake/Output: Intake & Output 08/28/25 08/29/25 08/30/25 08/31/25 23:59 23:59 23:59 23:59 Intake Total 337.5 1410.4 Output Total 700 1000 Balance -362.5 410.4 Meds/Results Medications: Active Medications Generic Name Dose Route Start Last Admin Trade Name Freq PRN Reason Stop Dose Admin Acetaminophen 650 mg 08/30/25 19:05 Acetaminophen 325 Mg Tablet PO Q4H PRN Mild Pain (1-3) or Fever Albuterol/Ipratropium 3 ml 08/30/25 21:05 Ipratropium 0.5 Mg/Albuterol Sulfate 2.5 Mg (Base) Ampul.Neb 3 Ml INHALATION Q6HRT PRN Shortness Of Breath Or Wheezing Aspirin 81 mg 08/31/25 09:00 Aspirin 81 Mg [facility] [place] Atorvastatin Calcium 40 mg 08/31/25 09:00 Atorvastatin 40 Mg Tablet PO DAILY [facility] Benzonatate 100 mg 08/30/25 21:05 Benzonatate 100 Mg Capsule PO TID PRN Cough Clopidogrel Bisulfate 75 mg 08/31/25 09:00 Clopidogrel Bisulfate 75 Mg Tablet PO QAM [facility] Dextrose 12.5 gm 08/31/25 02:45 Dextrose 50% 25 Gm/50 Ml Syringe IV PUSH PRN PRN Hypoglycemia Protocol Glucose 15 gm 08/31/25 02:45 Glucose Oral Gel 15 Gm Of Glucse In 37.5 Gm Tube PO PRN PRN Hypoglycemia Protocol Guaifenesin 600 mg 08/31/25 09:00 Guaifenesin 12 Hr 600 Mg Tabcr PO Q12HR [facility] Sodium Chloride 1,000 mls @ 125 mls/hr 08/30/25 19:05 08/31/25 04:20 Normal Saline Iv IV CONT 125 mls/hr .Q8H [facility] Administration Levofloxacin/Dextrose 750 mg in 150 mls @ 100 mls/hr 08/30/25 21:05 08/31/25 01:05 Levaquin 750 Mg/D5w 150 Ml IVPB Infused Q24H NESSA Infusion Dextrose 1,000 mls @ 100 mls/hr 08/31/25 02:45 Dextrose 5% 1,000 Ml IVPB PRN PRN Hypoglycemia Protocol Levetiracetam 2,000 mg 08/31/25 09:00 Levetiracetam 500 Mg Tablet PO Q12HR [facility] Morphine Sulfate 2 mg 08/30/25 19:14 Morphine Sulfate (*Crx) 4 Mg/Ml Inj IV PUSH Q2H PRN Pain Rated 7-10 Ondansetron HCl 4 mg 08/30/25 19:05 Ondansetron Inj 4 Mg/2 Ml Vial IV PUSH Q4H PRN Nausea Perflutren Lipid Microsphere 0 ml 08/30/25 20:45 Perflutren Lipid Microspheres 1.5 Ml Vial Diluted To 10 Ml Total Volume IV PUSH 09/02/25 20:45 ONCE PRN adequate visualization Protocol Sodium Zirconium Cyclosilicate 10 gm 08/31/25 02:45 08/31/25 03:08 Sodium Zirconium Cyclosilicate 10 Gm Powd.Pack PO 09/02/25 02:44 10 gm TID@1000,1500,2200 [facility] Administration Radiology Results: ITS Impressions Head CT 08/30/25 15:50 IMPRESSION: 1. No acute intracranial process. 2. Several old infarcts moderate-sized at the left parietal and occipital lobes, small at the right occipital lobe and a couple additional smaller old lacunar infarcts in the right frontal and left parietal lobe white matter. 3. Age-related changes including moderate diffuse volume loss and mild scattered white matter hypoattenuation consistent with chronic small vessel ischemic disease. Chest X-Ray 08/30/25 16:28 IMPRESSION: 1. Interstitial opacities in both lungs. Differential includes interstitial edema, interstitial pneumonia or chronic interstitial changes. If symptoms persist or worsen, consider a short-term follow-up study or additional imaging for further assessment. Head/Neck CTA 08/30/25 16:39 IMPRESSION: 1. Limited study. There is no gross critical stenosis, occlusion or aneurysm identified Labs Labs: Laboratory Results - last 24 hr 08/30/25 08/30/25 08/30/25 15:58 16:11 17:26 WBC 6.7 RBC 3.78 L Hgb 12.4 L D Hct 36.0 L MCV 95.2 MCH 32.8 MCHC 34.4 RDW 13.8 Plt Count 297 D MPV 8.4 Immature Gran % (Auto) 0.3 Neut % (Auto) 40.9 L Lymph % (Auto) 48.7 H [place] % (Auto) 7.0 Eos % (Auto) 1.6 Baso % (Auto) 1.5 H Lymph # (Auto) 3.27 H [place] # (Auto) 0.5 Eos # (Auto) 0.1 Baso # (Auto) 0.1 Abs Immat Gran (auto) 0.02 Absolute Neuts (auto) 2.8 Absolute Nucleated RBC 0.000 Nucleated RBC % 0.0 PT 12.6 INR 0.9 APTT 31.9 Sodium 121 L Potassium 4.7 Chloride 89 L Carbon Dioxide 25 Anion Gap 7 BUN 15 Creatinine 0.73 Estim Creat Clear Calc 81 Estimated GFR > 60 Glucose 114 H POC Capillary Glucose 146 H Hemoglobin A1c Lactic Acid Calcium 9.0 Magnesium Total Bilirubin 0.5 AST 28 ALT 15 Alkaline Phosphatase 82 Troponin I < 0.012 Total Protein 7.5 Albumin 4.6 Triglycerides Cholesterol LDL Cholesterol Direct HDL Direct Procalcitonin Urine Color Yellow Urine Appearance Clear Urine pH 7.0 Ur Specific [place] 1.018 Urine Protein Trace Urine Glucose (UA) Negative Urine Ketones Negative Ur Blood (Man) Negative Urine Nitrate Negative Urine Bilirubin Negative Urine Urobilinogen 0.2 Leukocyte Esterase Rfl Trace H Urine RBC 0-2 Urine WBC 0-5 Ur Squamous Epith Cells None seen Urine Bacteria None seen Urine Casts 0-2 Ethyl Alcohol < 10 08/30/25 08/30/25 08/30/25 19:30 20:36 22:03 WBC RBC Hgb Hct MCV MCH MCHC RDW Plt Count MPV Immature Gran % (Auto) Neut % (Auto) Lymph % (Auto) [place] % (Auto) Eos % (Auto) Baso % (Auto) Lymph # (Auto) [place] # (Auto) Eos # (Auto) Baso # (Auto) Abs Immat Gran (auto) Absolute Neuts (auto) Absolute Nucleated RBC Nucleated RBC % PT INR APTT Sodium 122 L Potassium 5.4 H Chloride 92 L Carbon Dioxide 19 L Anion Gap 11 BUN 14 Creatinine 0.59 L Estim Creat Clear Calc 99 Estimated GFR > 60 Glucose 152 H POC Capillary Glucose 171 H Hemoglobin A1c Lactic Acid 2.1 H 1.7 Calcium 8.3 L Magnesium Total Bilirubin AST ALT Alkaline Phosphatase Troponin I Total Protein Albumin Triglycerides Cholesterol LDL Cholesterol Direct HDL Direct Procalcitonin 0.2 Urine Color Urine Appearance Urine pH Ur Specific [place] Urine Protein Urine Glucose (UA) Urine Ketones Ur Blood (Man) Urine Nitrate Urine Bilirubin Urine Urobilinogen Leukocyte Esterase Rfl Urine RBC Urine WBC Ur Squamous Epith Cells Urine Bacteria Urine Casts Ethyl Alcohol 08/31/25 08/31/25 08/31/25 01:19 01:19 01:19 WBC 9.6 RBC 3.74 L Hgb 12.5 L Hct 36.2 L MCV 96.8 MCH 33.4 MCHC 34.5 RDW 13.9 Plt Count 255 MPV 8.7 Immature Gran % (Auto) 0.4 Neut % (Auto) 85.7 H Lymph % (Auto) 9.2 L [place] % (Auto) 4.1 Eos % (Auto) 0.1 Baso % (Auto) 0.5 Lymph # (Auto) 0.88 L [place] # (Auto) 0.4 Eos # (Auto) 0.0 Baso # (Auto) 0.1 Abs Immat Gran (auto) 0.04 H Absolute Neuts (auto) 8.2 H Absolute Nucleated RBC 0.000 Nucleated RBC % 0.0 PT INR APTT Sodium 122 L 122 L Potassium 6.1 H* 5.9 H Chloride 90 L Carbon Dioxide Anion Gap BUN Creatinine Estim Creat Clear Calc Estimated GFR Glucose POC Capillary Glucose Hemoglobin A1c Lactic Acid Calcium Magnesium Total Bilirubin AST ALT Alkaline Phosphatase Troponin I Total Protein Albumin Triglycerides Cholesterol LDL Cholesterol Direct HDL Direct Procalcitonin Urine Color Urine Appearance Urine pH Ur Specific [place] Urine Protein Urine Glucose (UA) Urine Ketones Ur Blood (Man) Urine Nitrate Urine Bilirubin Urine Urobilinogen Leukocyte Esterase Rfl Urine RBC Urine WBC Ur Squamous Epith Cells Urine Bacteria Urine Casts Ethyl Alcohol 08/31/25 08/31/25 08/31/25 01:19 01:19 01:19 WBC RBC Hgb Hct MCV MCH MCHC RDW Plt Count MPV Immature Gran % (Auto) Neut % (Auto) Lymph % (Auto) [place] % (Auto) Eos % (Auto) Baso % (Auto) Lymph # (Auto) [place] # (Auto) Eos # (Auto) Baso # (Auto) Abs Immat Gran (auto) Absolute Neuts (auto) Absolute Nucleated RBC Nucleated RBC % PT INR APTT Sodium Potassium Chloride 90 L Carbon Dioxide 25 24 Anion Gap 7 8 BUN 14 Creatinine Estim Creat Clear Calc Estimated GFR Glucose POC Capillary Glucose Hemoglobin A1c Lactic Acid Calcium Magnesium Total Bilirubin AST ALT Alkaline Phosphatase Troponin I Total Protein Albumin Triglycerides Cholesterol LDL Cholesterol Direct HDL Direct Procalcitonin Urine Color Urine Appearance Urine pH Ur Specific [place] Urine Protein Urine Glucose (UA) Urine Ketones Ur Blood (Man) Urine Nitrate Urine Bilirubin Urine Urobilinogen Leukocyte Esterase Rfl Urine RBC Urine WBC Ur Squamous Epith Cells Urine Bacteria Urine Casts Ethyl Alcohol 08/31/25 08/31/25 08/31/25 01:19 01:19 01:19 WBC RBC Hgb Hct MCV MCH MCHC RDW Plt Count MPV Immature Gran % (Auto) Neut % (Auto) Lymph % (Auto) [place] % (Auto) Eos % (Auto) Baso % (Auto) Lymph # (Auto) [place] # (Auto) Eos # (Auto) Baso # (Auto) Abs Immat Gran (auto) Absolute Neuts (auto) Absolute Nucleated RBC Nucleated RBC % PT INR APTT Sodium Potassium Chloride Carbon Dioxide Anion Gap BUN 14 Creatinine 0.63 L 0.65 L Estim Creat Clear Calc 93 91 Estimated GFR > 60 Glucose POC Capillary Glucose Hemoglobin A1c Lactic Acid Calcium Magnesium Total Bilirubin AST ALT Alkaline Phosphatase Troponin I Total Protein Albumin Triglycerides Cholesterol LDL Cholesterol Direct HDL Direct Procalcitonin Urine Color Urine Appearance Urine pH Ur Specific [place] Urine Protein Urine Glucose (UA) Urine Ketones Ur Blood (Man) Urine Nitrate Urine Bilirubin Urine Urobilinogen Leukocyte Esterase Rfl Urine RBC Urine WBC Ur Squamous Epith Cells Urine Bacteria Urine Casts Ethyl Alcohol 08/31/25 08/31/25 08/31/25 01:19 01:19 01:19 WBC RBC Hgb Hct MCV MCH MCHC RDW Plt Count MPV Immature Gran % (Auto) Neut % (Auto) Lymph % (Auto) [place] % (Auto) Eos % (Auto) Baso % (Auto) Lymph # (Auto) [place] # (Auto) Eos # (Auto) Baso # (Auto) Abs Immat Gran (auto) Absolute Neuts (auto) Absolute Nucleated RBC Nucleated RBC % PT INR APTT Sodium Potassium Chloride Carbon Dioxide Anion Gap BUN Creatinine Estim Creat Clear Calc Estimated GFR > 60 Glucose 164 H 164 H POC Capillary Glucose Hemoglobin A1c 5.9 H Lactic Acid Calcium 8.5 8.5 Magnesium 1.9 Total Bilirubin 0.5 AST 42 ALT 32 Alkaline Phosphatase 71 Troponin I Total Protein 7.0 Albumin 4.3 Triglycerides 73 Cholesterol 163 LDL Cholesterol Direct 67 HDL Direct 68 Procalcitonin Urine Color Urine Appearance Urine pH Ur Specific [place] Urine Protein Urine Glucose (UA) Urine Ketones Ur Blood (Man) Urine Nitrate Urine Bilirubin Urine Urobilinogen Leukocyte Esterase Rfl Urine RBC Urine WBC Ur Squamous Epith Cells Urine Bacteria Urine Casts Ethyl Alcohol 08/31/25 08/31/25 08/31/25 05:15 05:16 07:28 WBC RBC Hgb Hct MCV MCH MCHC RDW Plt Count MPV Immature Gran % (Auto) Neut % (Auto) Lymph % (Auto) [place] % (Auto) Eos % (Auto) Baso % (Auto) Lymph # (Auto) [place] # (Auto) Eos # (Auto) Baso # (Auto) Abs Immat Gran (auto) Absolute Neuts (auto) Absolute Nucleated RBC Nucleated RBC % PT INR APTT Sodium 123 L Potassium 4.7 Chloride 90 L Carbon Dioxide 23 Anion Gap 10 BUN 14 Creatinine 0.60 L Estim Creat Clear Calc 99 Estimated GFR > 60 Glucose 160 H POC Capillary Glucose 177 H Hemoglobin A1c Lactic Acid Calcium 9.1 Magnesium Cancelled 1.8 Total Bilirubin AST ALT Alkaline Phosphatase Troponin I Total Protein Albumin Triglycerides Cholesterol LDL Cholesterol Direct HDL Direct Procalcitonin Urine Color Urine Appearance Urine pH Ur Specific [place] Urine Protein Urine Glucose (UA) Urine Ketones Ur Blood (Man) Urine Nitrate Urine Bilirubin Urine Urobilinogen Leukocyte Esterase Rfl Urine RBC Urine WBC Ur Squamous Epith Cells Urine Bacteria Urine Casts Ethyl Alcohol Quality VTE Prophylaxis VTE prophylaxis: mechanical ordered Hospitalist MIPS Advance Care Plan I have confirmed that the patient's Advanced Care Plan is present, code status is documented, or surrogate decision maker is listed in patient medical record.: Yes Medication Reconciliation I have utilized all available resources to obtain, update and review the patients current medications (includes all prescriptions, OTC, herbals, cannabis, and nutritional supplements).: Yes
--- OUTSIDE RECORDS SUMMARY | 2025-08-31 09:26 | XMS_ITS | Clinical Summary ---
Author Organization [address] Address [address] [place] [address] Care Team Providers Care Lead Ingot Molder Name Role Phone Unavailable Primary Care Provider [...] = 0.6 oz pur e alcohol) [facility] Sex and Gender Information Value Date Recorded Sex Assigned at Not on file Legal Sex Male 3:42 AM ENTERTAINMENT DIRECTOR Gender Identity Not on file Sexual Orientation Not on file Last Filed Vital Signs Vital Sign Reading Time Taken Comments Blood Pressure 112/83 01/08/2013 2:28 PM ENTERTAINMENT DIRECTOR Pulse 97 01/08/2013 2:28 PM ENTERTAINMENT DIRECTOR Temperature 37.4 C (99.3 F) 01/08/2013 2:28 PM ENTERTAINMENT DIRECTOR Respiratory Rate 16 01/08/2013 2:28 PM ENTERTAINMENT DIRECTOR Oxygen Saturation 98% 01/08/2013 2:28 PM ENTERTAINMENT DIRECTOR Inhaled Oxygen Concentration - - Weight 81.6 kg (180 lb) 01/08/2013 2:28 PM ENTERTAINMENT DIRECTOR Height 182.9 cm (6') 01/08/2013 2:28 PM ENTERTAINMENT DIRECTOR Body Mass Index 24.41 01/08/2013 2:28 PM ENTERTAINMENT DIRECTOR Plan of Treatment Health Maintenance Due Date [...]
--- OUTSIDE RECORDS SUMMARY | 2025-08-31 09:26 | XMS_ITS | Clinical Summary ---
Author Organization [facility] Address [address] [place] [address] Care Team Providers Care Color Separation Photographer Name Role Phone Jeanie Ortiz MD Primary Care Provider [phone] Source Comments [facility],non-owned Affiliates and Associated Physician Practices is amultiple site organization consisting of ambulatory clinics and hospital sitesin [place], [place], [place] and [place]. This disclosure is being madepursuant to the Care Everywhere program and may not contain all information available regarding this patient. 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 07/17/2013 12:15 PM CDT from Last 3 Months or Most Recently Relevant to Health Maintenance Results * HIV-1 HIV-2 ANTIBODY (07/17/2013 12:15 PM CDT) Pathologist [facility] HIV-1/HIV-2 Non Reactive Non Reactive 3 7:38 AM CDT [facility] Blood BLOOD SPECIMEN / Unknown 07/17/2013 12:15 PM CDT 07/17/2013 12:23 PM CDT us Wilton Gonzalez MD LAB - CHEMISTRY ORDERABLES Final Result Performing Organization Address City/State/[facility] Co de Phone Number [facility] [address] [place] [address] * HEPATITIS SCREEN ACUTE (07/17/2013 12:15 PM CDT) HAV Antibody IgM Non Reactive Non Reactive 07/17/2013 7:57 PM CDT [facility] HBsAg Non Reactive Non Reactive 07/17/2013 7:57 PM CDT [facility] HBc Antibody IgM Non Reactive Non Reactive 07/17/2013 7:57 PM CDT [facility] HCV Antibody Screen Non Reactive Non Reactive 07/17/2013 7:57 PM CDT [facility] Blood BLOOD SPECIMEN / Unknown 07/17/2013 12:15 PM CDT 07/17/2013 12:23 PM CDT Narrative [facility] - 07/17/2013 7:57 PM CDT Nonreactive - Antibodies to HCV were not detected, result does not exclude early acute HCV infection. Wilton Gonzalez MD LAB - CHEMISTRY ORDERABLES Final Result [facility] [address] [place] [address] from Last 3 Months or Most Recently Relevant to Health Maintenance Insurance [place] MEDICAID - [employer] BETTER HEALTH [facility] Address: [facility] [address] [place] [address] [facility] MEDICARE Advance Directives * FULL RESUSCITATION (Latest Code Status on File) Date Activated Date Inactivated Comments 07/17/2013 11:05 AM 07/20/2013 12:02 PM * FULL RESUSCITATION Date Activated Date Inactivated Comments 12/11/2012 12:01 PM 12/14/2012 1:36 PM Care Teams Color Separation Photographer Relationship Specialty Start Date End Date Jeanie Ortiz MD [address] [place] [address] [address] [place] [phone] PCP - General 09/18/21
--- OUTSIDE RECORDS SUMMARY | 2025-08-31 09:26 | XMS_ITS | Clinical Summary ---
Author Organization [facility] Address [address] [place] [id number] Phone Care Team Providers Care Gaming Cage Worker Name Role Phone Jeanie Ortiz MD Primary Care Provider [phone] Allergies No known active allergies Medications furosemide [...] 2025 10/12/2021 Insurance [employer] Care Teams Gaming Cage Worker Relationship Specialty Start Date End Date Jeanie Ortiz MD [address] [place] [address] [address] [place] [address] PCP - General Family Medicine 03/21/21
--- OUTSIDE RECORDS SUMMARY | 2025-08-31 09:26 | XMS_ITS | Clinical Summary ---
Author Organization [facility] Address [address] [place] [address] Care Team Providers Care Tooling Inspector Name Role Phone Jeanie Ortiz MD Primary Care Provider [phone] Social History Tobacco Use Types Packs/Day Years [...] 2025 10/12/2021 Insurance [place] Medicaid Care Teams Tooling Inspector Relationship Specialty Start Date End Date Jeanie Ortiz MD [address] [place] [id number] PCP - General Family Medicine 08/01/22
--- OUTSIDE RECORDS SUMMARY | 2025-08-31 09:26 | XMS_ITS | Clinical Summary ---
Author Organization [facility] [address] Address [address] [place] [address] Care Team Providers Care Field Installer Name Role Phone Brayden Miranda DO Primary Care Provider [phone] Allergies Active Allergy Reactions Criticality Noted Date [...] ns:hypothyroidi sm Take 25 mcg by mouth business manager before breakfast. 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 MANAGER Gender Identity Male 11/19/2023 10:21 AM SHAREPOINT MANAGER Sexual Orientation Choose not to disclose 2022 10:21 AM SHAREPOINT MANAGER Obstetrics History Last Filed Vital Signs Vital Sign Reading Time Taken Comments Blood Pressure 111/81 12/25/2023 2:03 PM SHAREPOINT MANAGER Pulse 55 12/25/2023 2:03 PM SHAREPOINT MANAGER Temperature 36 C (96.8 F) 12/25/2023 2:03 PM SHAREPOINT MANAGER Respiratory Rate 18 12/25/2023 2:03 PM SHAREPOINT MANAGER Oxygen Saturation 100% 12/25/2023 2:03 PM SHAREPOINT MANAGER Inhaled Oxygen Concentration - - Weight 64.3 kg (141 lb 11.2 oz) 023 10:35 PM SHAREPOINT MANAGER Height 182.9 cm (6') 11/17/2023 10:35 PM SHAREPOINT MANAGER Body Mass Index 19.22 11/17/2023 10:35 PM SHAREPOINT MANAGER Plan of Treatment Health Maintenance Due Date Last Done Comments Colon Cancer Screening-Colonoscopy 1966 Depression Screening 1966 Hepatitis C Screening 1966 Prostate Cancer Screening-PSA 1966 DTaP/Tdap/Td Vaccine (1 - Tdap) 1977 Hepatitis B Screening 1984 Regular Well Visit/Exam 18-64 1984 Pneumococcal vaccine <65 (1 of 2 - PCV) 1985 Zoster Vaccine (1 of 2) 2016 Influenza Vaccine (#1) 2025 3, 08/26/2023, 10/12/2021 Insurance [facility] AETNA MEDICARE GOLD MEDICARE Advance Directives For more information, please contact: [phone] Documents on File Type Date Recorded Patient License Distributor Expl anation ADVANCE DIRECTIVE 11/28/2023 1:23 PM [employer] ADVANCE DIRECTIVE 11/22/2023 3:13 PM [employer] * Full Code (Latest Code Status on File) Date Activated Date Inactivated Comments 11/17/2023 10:34 PM 11/22/2023 7:13 PM Care Teams Field Installer Relationship Specialty Start Date End Date Brayden Miranda DO PCP - General Internal Medicine 01/02/24
--- OUTSIDE RECORDS SUMMARY | 2025-08-31 09:26 | XMS_ITS | Encounter Summary ---
Author Organization [facility] Address [address] [place] [address] Care Team Providers Care Golf Cart Attendant Name Role Phone Unavailable Primary Care Provider Unavailabl e Encounter Details Date Type Department Care Team (Latest Contact Info) Description 04/15/2004 Outpatient Historical HIS [facility] [place] [address] [place] [phone] OPEN WOUND OF FINGER (Primary Dx) Social History Tobacco Use Types Packs/Day Years Used Date Smoking Tobacco: Never Assessed Sex and Gender Information Value Date Recorded Sex Assigned at Not on file Legal Sex Male 3:42 AM VOLUNTEER SERVICES COORDINATOR Gender Identity Not on file Sexual Orientation Not on file documented as of this encounter Plan of Treatment Not on file documented as of this encounter Visit Diagnoses Diagnosis Open wound of finger(s) , without mention of complication- Primary documented in this encounter
--- NOTE | 2025-08-31 10:06 | PCSTNOTE ---
08/31/25 Attempted to see am having ultra sound
[2025-08-31] MEDS: guaiFENesin 12 HR 600 MG TABCR PO ×2 (10:16→21:01)
[2025-08-31] MEDS: CLOPIDOGREL BISULFATE 75 MG TABLET PO (10:16)
[2025-08-31] MEDS: ASPIRIN 81 MG ENTERIC TABLET PO (10:16)
[2025-08-31] MEDS: ATORVASTATIN 40 MG TABLET PO (10:17)
[2025-08-31] MEDS: PERFLUTREN LIPID MICROSPHERES 1.5 ML VIAL DILUTED TO 10 ML TOTAL VOLUME IV PUSH (10:53)
--- NOTE | 2025-08-31 10:53 | IVDEFINITY ---
Prior to administration of IV Definity the patient was educated on the risks and benefits of the imaging enhancing agent including potential adverse side effects. The patient verbalized understanding. Allergies were verified. No exclusion criteria were identified and at least one of the following inclusion criteria were met: 1) physician request, 2) patient technically difficult to image (per the [place] [employer] Echocardi[employer] guidelines of two or more segments not discernable within the apical view), or 3) questionable left ventricular function. ?
--- NOTE | 2025-08-31 12:39 | PCSTNOTE ---
Please refer to the Bedside Swallow Evaluation in the EMR. Please note, silent aspiration cannot be ruled out at bedside. Patient is a 60 year old male who presented to ED on 08/30/2025 with altered mental status and suspected CVA. Medical history is significant for hypothyroidism, seizures, chronic hyponatremia, CVA with residual left-sided deficits, CHF, previous alcohol abuse (last drink 2 years ago), and hypertension. Patient and bedside RN reports word finding difficulty and slightly slurred speech. Patient is positioned upright in bed for completion of bedside swallow evaluation with no family present. Patient is oriented x4, although required extended processing time when answering questions and often had to repeat himself to verbalize the correct words. Patient denies any swallowing difficulties. INVENTORY TRANSCRIBER conducted oral mechanism exam, in which no facial asymmetry was noted. Patient's oral mucosa was normal. Patient is edentulous. He reports he left his full upper and lower dentures at home. Patient demonstrated good lingual and lip range of motion, as well as clear vocal quality. INVENTORY TRANSCRIBER presented 5/mL of ice chip via spoon, cup sip (uncontrolled thin 1), puree (apple sauce), solid (cracker) and sip via straw (uncontrolled thin 2). Patient required set up assistance to self-fed throughout the evaluation. The patient was unable to use a straw due to increased confusion, therefore thin liquid trials were given via cup sip. Patient reports nausea and refuses solid cracker trial. No significant oral residue is noted following puree trial. Patient demonstrated good containment of bolus and timely oral manipulate and transport. Presence of swallow initiation is felt to palpation by INVENTORY TRANSCRIBER. No overt signs or symptoms of aspiration is observed. It is noted the presence of silent aspiration cannot be ruled out at bedside. Recommended 1) Level 6 Soft and Bite Sized Diet 2) Level 0 Thin Liquids 3) Frequent observation. Communication Evaluation recommended to address word finding difficulties. Continue to monitor for diet advancement. Recommendations communication with bedside RN, Jurgen, and provider, Dr. Toño Alicia. Thank you for this referral.
--- NOTE | 2025-08-31 14:13 | WPDCDIQUERY2 ---
CDI Query Clarification Request 1) Documentation states initially meeting SIRS Please clarify if diagnosis has been ruled in or ruled out and/or should be added to the problem list. If able, please clarify: ? SIRS due to infection/influenza please document sepsis not SIRS ? SIRS due to noninfectious cause (e.g. trauma, matthews, pancreatitis) Please specify cause of SIRS ? Other ? Unknown or unable to determine 2) Please clarify the underlying possible/probable/suspected cause for the altered mental status in the progress notes: ? Encephalopathy (metabolic, COVID, hepatic, hypoxic, uremic, Wernicke, other) ? Neurologic condition (CVA/TIA/NPH/seizure) ? Electrolyte/metabolic imbalance/dehydration ? Infectious process (i.e. meningitis/encephalitis) ? Psychiatric condition ? Respiratory condition ? Dementia ? Other, please specify ? Unknown/unable to determine Assessment and Plan (1) AMS (altered mental status): Qualifiers: Altered mental status type: disorientation Qualified Code(s): R41.0 - Disorientation, unspecified Code(s): R41.82 - Altered mental status, unspecified Status: Acute Assessment and Plan: New altered mental status discovered at 2:40 p.m. on 08/30. Last known well at 8:00 p.m. on 08/29. Patient has past medical history significant for multiple strokes with left-sided deficits and seizure disorder. Improving with Keppra. Breakthrough seizures versus new CVA versus combination there of. Current symptoms include who continue dysarthria and word-finding difficulties. Left upper extremity weakness noted, however residual from previous stroke. Increasing suspicion for CVA with breakthrough seizure secondary to stroke. - admission for observation and telemetry - not candidate for thrombolytics or thrombectomy due to time frame and no acute LVO noted on CTA - CXR: Interstitial opacities in both lungs. Differential includes interstitial edema, interstitial pneumonia or chronic interstitial changes. - head CT and CTA head/neck showed no acute findings - neurology consulted, ED spoke with on-call neurologist to recommended MRI and EEG - brain MRI w/wo ordered - echo w/B[facility] ordered - neuro checks Q4 - consider PT/OT evaluation if acute CVA noted on MRI - ST eval as the patient has dysarthria on exam - monitor daily labs, check lipid panel and A1C - up ad anatoly or fall precautions - start Atorvastatin 40 mg PO, Plavix 75 mg PO, ASA 81 mg - consider 30 day event monitoring at discharge if abnormalities noted on telemetry (2) Seizure: Code(s): R56.9 - Unspecified convulsions Status: Acute Assessment and Plan: - see above - given Keppra 1500 IV, continue as Keppra 2G BID. Medication refilled on 08/21/25. - check Keppra level - seizure precautions (3) History of stroke: Code(s): Z86.73 - Personal history of transient ischemic attack (TIA), and cerebral infarction without residual deficits Status: Acute Assessment and Plan: - CT Head on 08/30 showed several old infarcts moderate-sized at the left parietal and occipital lobes, small at the right occipital lobe and a couple additional smaller old lacunar infarcts in the right frontal and left parietal lobe white matter. - previous residual left sided deficits (4) Pneumonia: Qualifiers: Laterality: unspecified laterality Lung location: unspecified part of lung Pneumonia type: due to unspecified organism Qualified Code(s): J18.9 - Pneumonia, unspecified organism Code(s): J18.9 - Pneumonia, unspecified organism Status: Acute Assessment and Plan: Patient initially met SIRS criteria due to heart rate and hypoxia. CXR concerning for possibility of pneumonia versus pulmonary edema. No leukocytosis. However lactic was 2.1. Checking procalcitonin. Blood cultures obtained on 08/30, follow. - started on Levaquin on 08/30. - supportive care: Mucinex, Tessalon Perles, Tylenol, DuoNebs <Azucena Alaniz RN - Last Filed: 08/31/25 14:18> Clarified Diagnosis Clarified Diagnosis: SIRS due to infection-pneumonia <Toño Alicia MD - Last Filed: 08/31/25 18:34>
--- NOTE | 2025-08-31 16:30 | PM.CNCAR ---
Assessment and Plan Assessment and plan (1) Ischemic cardiomyopathy: Code(s): I25.5 - Ischemic cardiomyopathy Status: Acute (2) Atrial fibrillation: Qualifiers: Atrial fibrillation type: unspecified chronic Qualified Code(s): I48.20 - Chronic atrial fibrillation, unspecified Code(s): I48.91 - Unspecified atrial fibrillation Status: Acute (3) Cerebrovascular accident: Code(s): I63.9 - Cerebral infarction, unspecified Status: Acute (4) PEG (percutaneous endoscopic gastrostomy) status: Code(s): Z93.1 - Gastrostomy status Status: Acute (5) Seizure: Code(s): R56.9 - Unspecified convulsions Status: Acute (6) Protein-calorie malnutrition, severe: Code(s): E43 - Unspecified severe protein-calorie malnutrition Status: Acute (7) AMS (altered mental status): Qualifiers: Altered mental status type: disorientation Qualified Code(s): R41.0 - Disorientation, unspecified Code(s): R41.82 - Altered mental status, unspecified Status: Acute Plan Assessment: 1. Patient with severe cardiomyopathy ejection fraction less than 15% with multiple wall motion abnormalities. Differential diagnosis mostly include the multi-infarct status or possibly extensive anterior wall myocardial fraction. Previous echocardiogram in 2020 had revealed preserved systolic function in the range of 60%. Evaluate for underlying coronary artery disease. Differential diagnosis may include tachycardia induced cardiomyopathy, ischemic heart disease with previous stenting extensive anterior wall myocardial infarction or alcohol-related cardiomyopathy. 2. Presentation with atrial flutter with rapid ventricular response and right bundle branch block. A recent follow-up electrocardiogram on no 08/31/2025 reveals normal sinus rhythm with right bundle-branch block and heart rate of 89 per minute. Suggestion for inferior and anteroseptal infarct. 3. History of chronic alcohol abuse head protein caloric malnutrition presents with mental status changes. Patient has severe hyponatremia with sodium as low as 121 on admission. Sodium now is 123, potassium 4.7, BUN is 14 creatinine 0.6. Blood glucose is elevated at 160 per History of alcoholic cirrhosis. 4. History of hypothyroidism and seizure disorder. 5. History of stroke in the past. Multiple other problems including history of hypertension, orthostatic hypotension, chronic hyponatremia and failure to thrive. Recommendation; 1. Chronically debilitated patient with history of previous stroke, seizure disorder, cirrhosis of liver and failure to thrive has severely reduced the ejection fractions age of 10-15% by echocardiogram. Multiple wall motion abnormalities are noted suggesting ischemic etiology. 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 Patient appears to be stable and suitable for Lexiscan nuclear stress test tomorrow. Discussed with patient at the bedside 2. BNP if not ordered. 3. Currently blood pressure is 142/91 mm of mercury. Heart rate is 113 per minute. Will start patient on guideline directed medical therapy. Patient does show G-tube status. Start with carvedilol 3.125 mg b.i.d., Entresto 24-25 mg b.i.d.. Aldactone 25 mg daily for now. 4. Conservative medical management would be for an for this patient. Patient is full code. 5. Continue to monitor patient. Based on his ejection fraction patient is a candidate for external defibrillator or 90 days for now. Further recommendations to follow. History of Present Illness History of Present Illness Consult date/time: 08/31/25 16:30 Requesting physician: Toño Alicia MD Consult reason: Other (Patient with severe LV systolic dysfunction ejection fraction at 15%) Reason For Visit: Seizure, Hyponatremia Narrative: Patient is a 60-year-old gentleman admitted via emergency room on 08/30/2025 with the mental status changes. Patient is known history of stroke, seizure disorder, alcohol abuse at least last 2 years. Patient apparently not feeling for the last couple of days and called his family and subsequently brought to the emergency room. No complaints of chest pain, shortness of breath, leg edema. No complaints of fever or chills or seizures. No complaints of abdominal pain nausea vomiting or diarrhea. Past medical history significant for protein calorie malnutrition, hypothyroidism, chronic hyponatremia, chronic anemia, alcohol dependence. Admitting blood pressure in the emergency room was 140/106. Her was 138 per minute. Respirations 18 per minute. O2 saturation was 88% on room air. Admitting laboratory data available this can 6.7, hemoglobin 12.4 and platelets were normal. Sodium was 121, potassium 4.7, BUN is 15, creatinine 0.73. Troponin was less than 0.012. LFTs were normal. Admitting EKG revealed atrial flutter with rapid ventricular response at 134 per minute with right bundle-branch block and left axis deviation. Significant QRS widening noted Echocardiogram performed on 08/31/2025 revealed mildly enlarged left ventricle with severe LV systolic dysfunction and reduced ejection fraction less than 15%. Multiple areas of hypokinesis noted including anterior wall anterolateral wall, apical septum apical cap and basal inferior wall. There was mildly dilated right ventricle with reduced right ventricular systolic function. No significant valvular problems noted. No pericardial effusion noted. Cardiology was consulted. Previous echocardiogram on 07/17/2021 showed normal left ventricular size and systolic function is 65-70% and grade 1 diastolic dysfunction. Patient was examined at the bedside. Patient is awake alert and answered questions. Mild dementia as noted but no significant mental status changes. Patient appears to be mild nourished. Review of Systems Review of Systems: Twelve point review of system was completed. Pertinent positive and negative findings per HPI. Constitutional negative weakness negative for fever and chills. Positive for weight loss with Head and neck review of systems negative. Pulmonary system negative for cough, congestion, hemoptysis. Cardiovascular system negative for chest pain, shortness of breath, palpitation or syncope Gastrointestinal system negative for abdominal pain, nausea vomiting or diarrhea. Neurovascular positive for mental status changes. Negative for seizures. Musculoskeletal and skin are negative for PMFSH Past Medical History Medical History Alcoholic cirrhosis of liver COPD (chronic obstructive pulmonary disease) HLD (hyperlipidemia) Atrial fibrillation Colon cancer screening Erosive gastritis Aphasia Encephalopathy Protein calorie malnutrition Gastroesophageal reflux disease Hypothyroidism Chronic hyponatremia Chronic anemia Cerebrovascular accident With left-sided residual weakness. Congestive heart failure Echocardiogram on 07/17/2021 showed normal LV chamber dimension and function with an estimated EF of 65 to 70% and grade 1 diastolic dysfunction with mild pulmonary hypertension estimated pulmonary arterial systolic pressure of 37 mmHg. COVID (08/2021) DVT prophylaxis Alcohol dependence last drink in 2022 Adult failure to thrive Orthostatic hypotension Tobacco dependence Hypertension Surgical History Surgical History History of excision of testicular mass With benign histology. Family History Family History Father Chronic obstructive pulmonary disease Congestive heart failure Hypertension Mother Abdominal aortic aneurysm rupture Daughter Type 1 diabetes mellitus Social History Social History Social History: The patient lives with his brother The patient has 3 children. And is disabled. The patient states that he likes to drink whiskey and does not like to drink beer. The patient is single and unemployed Surrogate decision maker: Bere Gagnon, sister. Code status: Full code. Smoking packs per day: 1 Smoking cigarettes per day: 20.0 Years smoked: 25 Smoking pack-years: 25.00 Smoking status: Current every day smoker Tobacco type: cigarettes Additional smoking assessment comments: patient on nicotine patch Alcohol intake: former Alcohol use details: None Substance use: never Substance use type: does not use Other substance usage details: 200ml whiskey/day Do You Feel Safe in your Home?: Yes Lack of Transportation: No Lack of Food: Never True Current Housing: I Have Housing Concerned About Future Housing: No Difficulty Paying Gas/Electric Bills: No Difficulty Paying for Meds: No Currently Unemployed: No Education: High School Diploma/GED Difficulty w/ Childcare or Family Care: No Additional living arrangements comments: Resident at [facility]. Additional occupation/education comments: Unemployed. Spiritual care concerns: No Meds Home Medications and Allergies Home Medications ?Medication ?Instructions ?Recorded ?Confirmed ?Type lisinopril 20 mg tablet 20 mg feeding tube DAILY 04/10/23 08/31/25 History hydrocodone 7.5 mg-acetaminophen 1 tablet PO Q12H PRN pain 08/30/25 08/31/25 History 325 mg tablet levetiracetam 1,000 mg tablet 2,000 mg PO Q12H 08/30/25 08/30/25 History duloxetine 30 mg capsule,delayed 60 mg PO DAILY 08/31/25 08/31/25 History release lacosamide 200 mg tablet 200 mg PO Q12H 08/31/25 08/31/25 History levothyroxine 25 mcg tablet 25 mcg PO DAILY 08/31/25 08/31/25 History Allergies Allergy/AdvReac Type Severity Reaction Status Date / Time amoxicillin Allergy Rash Verified 08/30/25 16:58 gadobenic acid (From AdvReac Difficulty Verified 08/30/25 16:58 contrast - MRI) Breathing iohexol (From contrast - CT, AdvReac Difficulty Verified 08/30/25 16:58 X-RAY) Breathing Vital Signs Vital Signs - 24 hr 08/30/25 16:31 08/30/25 16:40 08/30/25 16:43 Temperature Pulse Rate 116 H 128 H 119 H Respiratory Rate 20 24 H Blood Pressure 140/106 H Pulse Oximetry Oxygen Delivery 08/30/25 16:45 08/30/25 16:47 08/30/25 17:10 Temperature Pulse Rate 120 H 113 H 122 H Respiratory Rate 22 H 22 H Blood Pressure 140/106 H 129/104 H Pulse Oximetry Oxygen Delivery 08/30/25 17:11 08/30/25 17:15 08/30/25 17:20 Temperature Pulse Rate 118 H 120 H 112 H Respiratory Rate 21 H 19 20 Blood Pressure 122/100 H Pulse Oximetry 100 100 Oxygen Delivery 08/30/25 17:30 08/30/25 17:31 08/30/25 17:40 Temperature Pulse Rate 105 H 108 H 107 H Respiratory Rate 14 14 12 Blood Pressure 119/100 H 95/75 L Pulse Oximetry 100 99 Oxygen Delivery 08/30/25 17:45 08/30/25 17:50 08/30/25 18:00 Temperature Pulse Rate 109 H 96 Respiratory Rate 19 12 Blood Pressure 117/95 H 117/96 H Pulse Oximetry 100 Oxygen Delivery 08/30/25 18:01 08/30/25 18:10 08/30/25 18:46 Temperature Pulse Rate 97 94 94 Respiratory Rate 12 15 15 Blood Pressure 111/97 H Pulse Oximetry 100 Oxygen Delivery 08/30/25 18:50 08/30/25 19:00 08/30/25 19:01 Temperature Pulse Rate 103 H 99 95 Respiratory Rate 15 15 Blood Pressure 108/91 H 120/97 H Pulse Oximetry 97 96 Oxygen Delivery 08/30/25 19:05 08/30/25 19:15 08/30/25 19:20 Temperature Pulse Rate 95 93 87 Respiratory Rate 20 15 Blood Pressure 110/91 H 111/91 H Pulse Oximetry 93 97 95 Oxygen Delivery 08/30/25 19:30 08/30/25 19:31 08/30/25 20:00 Temperature 36.5 C Pulse Rate 95 95 Respiratory Rate 21 H Blood Pressure 110/91 H 110/91 H Pulse Oximetry 96 94 96 Oxygen Delivery 08/30/25 20:00 08/30/25 20:45 08/30/25 20:45 Temperature 36.4 C Pulse Rate 89 88 88 Respiratory Rate 21 H 21 H Blood Pressure 113/86 Pulse Oximetry 92 92 Oxygen Delivery Room Air 08/30/25 22:00 10/06/25 23:45 08/30/25 23:53 Temperature 36.5 C Pulse Rate 84 85 86 Respiratory Rate 20 20 Blood Pressure 124/87 Pulse Oximetry 97 97 Oxygen Delivery Room Air 08/30/25 23:53 08/31/25 02:00 08/31/25 03:31 Temperature Pulse Rate 84 88 88 Respiratory Rate 20 Blood Pressure Pulse Oximetry 97 Oxygen Delivery Room Air 08/31/25 03:31 08/31/25 04:00 08/31/25 08:00 Temperature 36.5 C 36.8 C Pulse Rate 88 95 105 H Respiratory Rate 20 18 Blood Pressure 133/95 H 145/99 H Pulse Oximetry 95 99 Oxygen Delivery 08/31/25 08:00 08/31/25 08:00 08/31/25 10:00 Temperature Pulse Rate 103 H 108 H Respiratory Rate Blood Pressure Pulse Oximetry Oxygen Delivery Room Air 08/31/25 11:51 08/31/25 12:00 08/31/25 16:00 Temperature 36.9 C 36.9 C Pulse Rate 102 H 113 H Respiratory Rate 20 24 H Blood Pressure 135/97 H 142/91 H Pulse Oximetry 99 97 Oxygen Delivery Room Air Results Labs and Meds 08/31/25 01:19 08/31/25 05:16 Lab results: Cardiac Enzymes 08/30/25 08/31/25 Range/Units 15:58 01:19 AST 28 42 (17-59) U/L Troponin I < 0.012 (0.000-0.034) ng/mL Lipids 08/31/25 Range/Units 01:19 Triglycerides 73 (<150) mg/dL Cholesterol 163 (0-200) mg/dL CBC 08/31/25 Range/Units 01:19 WBC 9.6 (4.5-10.0) K/mm3 RBC 3.74 L (4.6-6.20) M/mm3 Hgb 12.5 L (14.0-18.0) g/dL Hct 36.2 L (42.0-52.0) % Plt Count 255 (150-375) k/mm3 Lymph # (Auto) 0.88 L (0.9-3.2) K/mm3 [place] # (Auto) 0.4 (0.1-0.6) K/mm3 Eos # (Auto) 0.0 (0-0.3) K/mm3 Baso # (Auto) 0.1 (0.0-0.1) K/mm3 Comprehensive Metabolic Panel 08/30/25 08/30/25 08/31/25 Range/Units 15:58 22:03 01:19 Sodium 121 L 122 L 122 L (137-145) mmol/L Potassium 4.7 5.4 H (3.4-5.0) mmol/L Chloride 89 L 92 L (98-107) mmol/L Carbon Dioxide 25 19 L (22-30) mmol/L BUN 15 14 (9-20) mg/dL Creatinine 0.73 0.59 L (0.7-1.3) mg/dL Glucose 114 H 152 H (65-110) mg/dL Calcium 9.0 8.3 L (8.4-10.2) mg/dL AST 28 (17-59) U/L ALT 15 (6-50) U/L Alkaline Phosphatase 82 (38-126) U/L Total Protein 7.5 (6.3-8.2) g/dL Albumin 4.6 (3.5-5.1) g/dL 08/31/25 08/31/25 08/31/25 Range/Units 01:19 01:19 01:19 Sodium 122 L (137-145) mmol/L Potassium 6.1 H* 5.9 H (3.4-5.0) mmol/L Chloride 90 L 90 L (98-107) mmol/L Carbon Dioxide 25 (22-30) mmol/L BUN (9-20) mg/dL Creatinine (0.7-1.3) mg/dL Glucose (65-110) mg/dL Calcium (8.4-10.2) mg/dL AST (17-59) U/L ALT (6-50) U/L Alkaline Phosphatase (38-126) U/L Total Protein (6.3-8.2) g/dL Albumin (3.5-5.1) g/dL 08/31/25 08/31/25 08/31/25 Range/Units 01:19 01:19 01:19 Sodium (137-145) mmol/L Potassium (3.4-5.0) mmol/L Chloride (98-107) mmol/L Carbon Dioxide 24 (22-30) mmol/L BUN 14 14 (9-20) mg/dL Creatinine 0.63 L 0.65 L (0.7-1.3) mg/dL Glucose 164 H (65-110) mg/dL Calcium (8.4-10.2) mg/dL AST (17-59) U/L ALT (6-50) U/L Alkaline Phosphatase (38-126) U/L Total Protein (6.3-8.2) g/dL Albumin (3.5-5.1) g/dL 08/31/25 08/31/25 08/31/25 Range/Units 01:19 01:19 05:16 Sodium 123 L (137-145) mmol/L Potassium 4.7 (3.4-5.0) mmol/L Chloride 90 L (98-107) mmol/L Carbon Dioxide 23 (22-30) mmol/L BUN 14 (9-20) mg/dL Creatinine 0.60 L (0.7-1.3) mg/dL Glucose 164 H 160 H (65-110) mg/dL Calcium 8.5 8.5 9.1 (8.4-10.2) mg/dL AST 42 (17-59) U/L ALT 32 (6-50) U/L Alkaline Phosphatase 71 (38-126) U/L Total Protein 7.0 (6.3-8.2) g/dL Albumin 4.3 (3.5-5.1) g/dL Intake and Output 08/31/25 08/31/25 08/31/25 07:59 15:59 23:59 Intake Total 1410.4 Output Total 1000 400 Balance 410.4 -400 Intake: IV 1210.4 Sodium Chloride 0.9% IV 1,000 960.4 ml @ 125 mls/hr IV CONT .Q8H [facility] Rx#:[id number] Calcium Gluc 2,000 mg/Ns 100Ml 100 2,000 mg In 100 ml @ 100 mls/hr IVPB ONCE STA Rx#:[id number] levoFLOXacin 750 MG/D5W 150 ML 150 750 mg In 150 ml @ 100 mls/hr IVPB Q24H [facility] Rx#:[id number] Oral 200 Output: Urine 1000 400 Other: Number of Bowel Movements Today 1 Patient Weight 08/31/25 23:59 Weight 62.2 kg
[2025-08-31 19:54] LABS: NT Pro B Type Natriuretic Pept > 30000 pg/mL (19.9-100)
[2025-08-31] MEDS: levoFLOXacin 750 MG/D5W 150 ML 750 MG/150 ML BAG 100 MG IVPB (21:01)
[2025-08-31] MEDS: SACUBITRIL/VALSARTAN 24-26 MG TABLET 1 TAB PO (21:01)
[2025-09-01] VITALS (16 sets, daily range): BP systolic 114–135; BP diastolic 75–99; PULSE 96–140; RESP 16–20; TEMP 36.3–37.3; O2SAT 93–100
[2025-09-01 04:19] LABS: Hematocrit 38.8 % (42.0-52.0); Hemoglobin 13.2 g/dL (14.0-18.0); Mean Corpuscular HGB Conc 34.0 g/dl (32-36); Mean Corpuscular Hemoglobin 32.8 pg (26-34); Mean Corpuscular Volume 96.5 fl (80-100); Platelet Count Result 277 k/mm3 (150-375); Red Blood Count 4.02 M/mm3 (4.6-6.20); White Blood Count 11.5 K/mm3 (4.5-10.0)
[2025-09-01 04:36] LABS: Alanine Aminotransferase 28 U/L (6-50); Albumin Level 4.1 g/dL (3.5-5.1); Alkaline Phosphatase 70 U/L (38-126); Anion Gap 9 mmol/L (4-12); Aspartate Amino Transferase 52 U/L (17-59); Bilirubin,Total 0.8 mg/dL (0.2-1.3); Blood Urea Nitrogen 17 mg/dL (9-20); Calcium 8.9 mg/dL (8.4-10.2); Carbon Dioxide 27 mmol/L (22-30); Chloride 89 mmol/L (98-107); Estimated CRCL calculation 83 ml/min; Estimated Glomerular Filt Rate > 60; Glucose 143 mg/dL (65-110); Potassium 4.0 mmol/L (3.4-5.0); Sodium 125 mmol/L (137-145); Total Protein 6.9 g/dL (6.3-8.2)
--- NOTE | 2025-09-01 08:58 | PCNEURO ---
EEG was attempted this AM but patient in confused and unable to cooperate for setup and tracing. Neurologist notified.
[2025-09-01] MEDS: ATORVASTATIN 40 MG TABLET PO (09:59)
[2025-09-01] MEDS: SPIRONOLACTONE 25 MG TABLET PO (09:59)
[2025-09-01] MEDS: guaiFENesin 12 HR 600 MG TABCR PO ×2 (09:59→19:48)
[2025-09-01] MEDS: ASPIRIN 81 MG ENTERIC TABLET PO (09:59)
[2025-09-01] MEDS: SACUBITRIL/VALSARTAN 24-26 MG TABLET 1 TAB PO ×2 (09:59→19:48)
[2025-09-01] MEDS: CLOPIDOGREL BISULFATE 75 MG TABLET PO (10:00)
--- NOTE | 2025-09-01 11:35 | P.PNCA_ITS ---
Progress Note: A&P Assessment and Plan (1) Atrial fibrillation: Qualifiers: Atrial fibrillation type: unspecified chronic Qualified Code(s): I48.20 - Chronic atrial fibrillation, unspecified Code(s): I48.91 - Unspecified atrial fibrillation Status: Acute (2) Ischemic cardiomyopathy: Code(s): I25.5 - Ischemic cardiomyopathy Status: Acute (3) Seizure: Code(s): R56.9 - Unspecified convulsions Status: Acute (4) AMS (altered mental status): Qualifiers: Altered mental status type: unspecified Qualified Code(s): R41.82 - Altered mental status, unspecified Code(s): R41.82 - Altered mental status, unspecified Status: Acute (5) Cerebrovascular accident: Code(s): I63.9 - Cerebral infarction, unspecified Status: Acute (6) Alcohol withdrawal seizure: Code(s): F10.939 - Alcohol use, unspecified with withdrawal, unspecified; R56.9 - Unspecified convulsions Status: Acute (7) Alcohol dependence: Code(s): F10.20 - Alcohol dependence, uncomplicated Status: Resolved Plan Assessment: 1. Patient with severe cardiomyopathy ejection fraction less than 15% with multiple wall motion abnormalities. Previous echocardiogram in 2020 had revealed preserved systolic function in the range of 60%. Evaluate for underlying coronary artery disease. Differential diagnosis may include tachycardia induced cardiomyopathy, ischemic heart disease with previous stenting extensive anterior wall myocardial infarction or alcohol-related cardiomyopathy. 2. Presentation with atrial flutter with rapid ventricular response and right bundle branch block. Patient now converted to normal sinus rhythm with paroxysms of atrial flutter. A recent follow-up electrocardiogram on no 08/31/2025 reveals normal sinus rhythm with right bundle-branch block and heart rate of 89 per minute. Suggestion for inferior and anteroseptal infarct. 3. History of chronic alcohol abuse head protein caloric malnutrition presents with mental status changes. Patient has severe hyponatremia with sodium as low as 121 on admission. Sodium now is 123, potassium 4.7, BUN is 14 creatinine 0.6. Blood glucose is elevated at 160 per History of alcoholic cirrhosis. 4. History of hypothyroidism and seizure disorder. Seizure source likely secondary to alcohol withdrawal. 5. History of stroke in the past. Multiple other problems including history of hypertension, orthostatic hypotension, chronic hyponatremia and failure to thrive. Recommendation; 1. Chronically debilitated patient with history of previous stroke, seizure disorder, cirrhosis of liver and failure to thrive has severely reduced the ejection fractions age of 10-15% by echocardiogram. Multiple wall motion abnormalities are noted suggesting ischemic etiology. 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 Patient appears to be stable and suitable for Lexiscan nuclear stress test tomorrow. Discussed with patient at the bedside. Nuclear stress test could not be completed today due to patient's mental status and clinically not stable for nuclear stress test[place] 2[place] [address]. Clinically patient appears to be euvolemic without leg edema, shortness of breath or orthopnea. Possibly chronically compensated systolic heart failure. -Will not start diuretic at this time since patient has no leg edema or other signs of fluid overload. 3. Currently blood pressure is 122/88 mm Hg and heart rate is 101 per minute in normal rhythm. Patient started on guideline directed medical therapy for chronic systolic heart failure including carvedilol 3.125 mg b.i.d., Entresto 24-26 b.i.d. and Aldactone 25 mg daily. 4. Conservative medical management would be for an for this patient. Patient is full code. Poor prognosis due to alcohol addiction, seizure disorder, alcoholic cirrhosis of liver and chronic mental status changes. Patient may have alcohol- related encephalopathy. 5. Continue to monitor patient. Based on his ejection fraction patient is a candidate for external defibrillator or 90 days for now at the time of discharge. 6. Laboratory data reviewed from today. Subjective Date/time seen: 09/01/25 11:35 Interval history: Review of HPI: Patient is a 60-year-old gentleman admitted via emergency room on 08/30/2025 with the mental status changes. Patient is known history of stroke, seizure disorder, alcohol abuse at least last 2 years. Patient apparently not feeling for the last couple of days and called his family and subsequently brought to the emergency room. No complaints of chest pain, shortness of breath, leg edema. No complaints of fever or chills or seizures. No complaints of abdominal pain nausea vomiting or diarrhea. Past medical history significant for protein calorie malnutrition, hypothyroidism, chronic hyponatremia, chronic anemia, alcohol dependence. Admitting blood pressure in the emergency room was 140/106. Her was 138 per minute. Respirations 18 per minute. O2 saturation was 88% on room air. Admitting laboratory data available this can 6.7, hemoglobin 12.4 and platelets were normal. Sodium was 121, potassium 4.7, BUN is 15, creatinine 0.73. Troponin was less than 0.012. LFTs were normal. Admitting EKG revealed atrial flutter with rapid ventricular response at 134 per minute with right bundle- branch block and left axis deviation. Significant QRS widening noted Echocardiogram performed on 08/31/2025 revealed mildly enlarged left ventricle with severe LV systolic dysfunction and reduced ejection fraction less than 15%. Multiple areas of hypokinesis noted including anterior wall anterolateral wall, apical septum apical cap and basal inferior wall. There was mildly dilated right ventricle with reduced right ventricular systolic function. No significant valvular problems noted. No pericardial effusion noted. Cardiology was consulted. Previous echocardiogram on 07/17/2021 showed normal left ventricular size and systolic function is 65-70% and grade 1 diastolic dysfunction. Subjective: Patient was examined at the bedside. Patient is awake but confused and disoriented. His communication and level is irrelevant. Nuclear stress test could not be completed. His heart rate is 110 per minute in normal sinus rhythm. Patient had episode of supraventricular tachycardia last night and a rate of 140-150 per minute. Strip was reviewed and is suspicious for atrial flutter with 2-1 block. Review of Systems Review of Systems: Could not be assessed as patient is confused and disoriented. Exam Narrative: Patient was examined at the bedside. Patient is awake alert in somewhat incoherent. No tremors noted. Blood pressure is 122/88 and heart rate is 101 per minute. Head and neck examination is unremarkable. Sclerae is nonicteric. Neck is supple. There is no JVD or carotid bruit. Lungs are clear to auscultation infarction. Heart sounds reveal normal S1-S2. No S3 is present there is soft systolic murmur noted at the apex. Abdomen is soft and nontender there is no ascites or hepatosplenomegaly. Bowel sounds are present. Extremities revealed no pedal edema. Neurological examination cannot be assessed. Psych examination cannot be assessed. Objective Data Vital Signs Vital Signs: Vital Signs - 24 hr 08/31/25 11:51 08/31/25 12:00 08/31/25 12:00 Temperature 36.9 C Pulse Rate 102 H 104 H Respiratory Rate 20 Blood Pressure 135/97 H Pulse Oximetry 99 Oxygen Delivery Room Air 08/31/25 14:00 08/31/25 16:00 08/31/25 16:00 Temperature 36.9 C Pulse Rate 115 H 113 H Respiratory Rate 24 H Blood Pressure 142/91 H Pulse Oximetry 97 Oxygen Delivery Room Air 08/31/25 16:00 08/31/25 18:00 08/31/25 20:00 Temperature 36.7 C Pulse Rate 111 H 95 95 Respiratory Rate 20 Blood Pressure 134/93 H Pulse Oximetry 100 Oxygen Delivery 08/31/25 20:00 08/31/25 20:00 08/31/25 21:01 Temperature Pulse Rate 98 98 74 Respiratory Rate 20 Blood Pressure Pulse Oximetry 100 Oxygen Delivery Room Air 08/31/25 22:00 08/31/25 23:40 09/01/25 00:00 Temperature 36.6 C Pulse Rate 100 98 100 Respiratory Rate 20 20 Blood Pressure 119/86 Pulse Oximetry 100 100 Oxygen Delivery Room Air 09/01/25 00:00 09/01/25 02:00 09/01/25 03:37 Temperature Pulse Rate 100 96 100 Respiratory Rate 20 Blood Pressure Pulse Oximetry 100 Oxygen Delivery Room Air 09/01/25 03:37 09/01/25 04:00 09/01/25 06:00 Temperature 36.6 C Pulse Rate 100 109 H 110 H Respiratory Rate 20 Blood Pressure 135/99 H Pulse Oximetry 94 Oxygen Delivery 09/01/25 08:00 09/01/25 08:00 09/01/25 10:00 Temperature 36.3 C L Pulse Rate 106 H 101 H Respiratory Rate 16 Blood Pressure 122/88 Pulse Oximetry 98 98 Oxygen Delivery Room Air Intake/Output Intake/Output: Intake & Output 08/29/25 08/30/25 08/31/25 09/01/25 23:59 23:59 23:59 23:59 Intake Total 337.5 1800.4 Output Total 700 1625 580 Balance -362.5 175.4 -580 Meds/Results Medications: Active Medications Generic Name Dose Route Start Last Admin Trade Name Freq PRN Reason Stop Dose Admin Acetaminophen 650 mg 08/30/25 19:05 Acetaminophen 325 Mg Tablet PO Q4H PRN Mild Pain (1-3) or Fever Albuterol/Ipratropium 3 ml 08/30/25 21:05 Ipratropium 0.5 Mg/Albuterol Sulfate 2.5 Mg (Base) Ampul.Neb 3 Ml INHALATION Q6HRT PRN Shortness Of Breath Or Wheezing Aspirin 81 mg 08/31/25 09:00 09/01/25 09:59 Aspirin 81 Mg Enteric Tablet PO 81 mg QAM NESSA Administration Atorvastatin Calcium 40 mg 08/31/25 09:00 09/01/25 09:59 Atorvastatin 40 Mg Tablet PO 40 mg DAILY NESSA Administration Benzonatate 100 mg 08/30/25 21:05 Benzonatate 100 Mg Capsule PO TID PRN Cough Carvedilol 3.125 mg 08/31/25 21:00 09/01/25 10:00 Carvedilol 3.125 Mg Tablet PO 3.125 mg Q12HR NESSA Administration Clopidogrel Bisulfate 75 mg 08/31/25 09:00 09/01/25 10:00 Clopidogrel Bisulfate 75 Mg Tablet PO 75 mg QAM NESSA Administration Dextrose 12.5 gm 08/31/25 02:45 Dextrose 50% 25 Gm/50 Ml Syringe IV PUSH PRN PRN Hypoglycemia Protocol Glucose 15 gm 08/31/25 02:45 Glucose Oral Gel 15 Gm Of Glucse In 37.5 Gm Tube PO PRN PRN Hypoglycemia Protocol Guaifenesin 600 mg 08/31/25 09:00 09/01/25 09:59 Guaifenesin 12 Hr 600 Mg Tabcr PO 600 mg Q12HR NESSA Administration Levofloxacin/Dextrose 750 mg in 150 mls @ 100 mls/hr 08/30/25 21:05 08/31/25 22:30 Levaquin 750 Mg/D5w 150 Ml IVPB Infused Q24H NESSA Infusion Dextrose 1,000 mls @ 100 mls/hr 08/31/25 02:45 Dextrose 5% 1,000 Ml IVPB PRN PRN Hypoglycemia Protocol Levetiracetam 2,000 mg 08/31/25 09:00 09/01/25 09:59 Levetiracetam 500 Mg Tablet PO 2,000 mg Q12HR NESSA Administration Morphine Sulfate 2 mg 08/30/25 19:14 Morphine Sulfate (*Crx) 4 Mg/Ml Inj IV PUSH Q2H PRN Pain Rated 7-10 Ondansetron HCl 4 mg 08/30/25 19:05 Ondansetron Inj 4 Mg/2 Ml Vial IV PUSH Q4H PRN Nausea Sacubitril/Valsartan 1 tab 08/31/25 21:00 09/01/25 09:59 Sacubitril/Valsartan 24-26 Mg Tablet PO 1 tab Q12HR NESSA Administration Sodium Zirconium Cyclosilicate 10 gm 08/31/25 02:45 08/31/25 23:36 Sodium Zirconium Cyclosilicate 10 Gm Powd.Pack PO 09/02/25 02:44 Not Given TID@1000,1500,2200 NESSA Spironolactone 25 mg 09/01/25 09:00 09/01/25 09:59 Spironolactone 25 Mg Tablet PO 25 mg QAM NESSA Administration Radiology Results: ITS Impressions Head CT 08/30/25 15:50 IMPRESSION: 1. No acute intracranial process. 2. Several old infarcts moderate-sized at the left parietal and occipital lobes, small at the right occipital lobe and a couple additional smaller old lacunar infarcts in the right frontal and left parietal lobe white matter. 3. Age-related changes including moderate diffuse volume loss and mild scattered white matter hypoattenuation consistent with chronic small vessel ischemic disease. Chest X-Ray 08/30/25 16:28 IMPRESSION: 1. Interstitial opacities in both lungs. Differential includes interstitial edema, interstitial pneumonia or chronic interstitial changes. If symptoms persist or worsen, consider a short-term follow-up study or additional imaging for further assessment. Head/Neck CTA 08/30/25 16:39 IMPRESSION: 1. Limited study. There is no gross critical stenosis, occlusion or aneurysm identified Labs Labs: Laboratory Results - last 24 hr 08/31/25 08/31/25 08/31/25 11:28 15:57 19:24 WBC RBC Hgb Hct MCV MCH MCHC RDW Plt Count MPV Sodium Potassium Chloride Carbon Dioxide Anion Gap BUN Creatinine Estim Creat Clear Calc Estimated GFR Glucose POC Capillary Glucose 168 H 183 H Calcium Total Bilirubin AST ALT Alkaline Phosphatase NT-Pro-B Natriuret Pep > 54341 H Total Protein Albumin 08/31/25 09/01/25 09/01/25 20:13 04:13 08:27 WBC 11.5 H RBC 4.02 L Hgb 13.2 L Hct 38.8 L MCV 96.5 MCH 32.8 MCHC 34.0 RDW 13.8 Plt Count 277 MPV 9.0 Sodium 125 L Potassium 4.0 Chloride 89 L Carbon Dioxide 27 Anion Gap 9 BUN 17 Creatinine 0.73 Estim Creat Clear Calc 83 Estimated GFR > 60 Glucose 143 H POC Capillary Glucose 185 H 119 H Calcium 8.9 Total Bilirubin 0.8 AST 52 ALT 28 Alkaline Phosphatase 70 NT-Pro-B Natriuret Pep Total Protein 6.9 Albumin 4.1
[2025-09-01 12:36] LABS: Ammonia < 9 umol/L (9-30)
[2025-09-01] MEDS: SODIUM ZIRCONIUM CYCLOSILICATE 10 GM POWD.PACK PO (12:56)
--- NOTE | 2025-09-01 18:23 | P.PNIM_ITS ---
Progress Note: A&P Assessment and Plan (1) AMS (altered mental status): Qualifiers: Altered mental status type: disorientation Qualified Code(s): R41.0 - Disorientation, unspecified Code(s): R41.82 - Altered mental status, unspecified Status: Acute Assessment and Plan: New altered mental status discovered at 2:40 p.m. on 08/30. Last known well at 8:00 p.m. on 08/29. Patient has past medical history significant for multiple strokes with left-sided deficits and seizure disorder. Improving with Keppra. Breakthrough seizures versus new CVA versus combination there of. Current symptoms include who continue dysarthria and word-finding difficulties. Left upper extremity weakness noted, however residual from previous stroke. Increasing suspicion for CVA with breakthrough seizure secondary to stroke. - admission for observation and telemetry - not candidate for thrombolytics or thrombectomy due to time frame and no acute LVO noted on CTA - CXR: Interstitial opacities in both lungs. Differential includes interstitial edema, interstitial pneumonia or chronic interstitial changes. - head CT and CTA head/neck showed no acute findings - neurology consulted, ED spoke with on-call neurologist to recommended MRI and EEG - brain MRI w/wo ordered - echo w/Bubble ordered - neuro checks Q4 - consider PT/OT evaluation if acute CVA noted on MRI - ST eval as the patient has dysarthria on exam - monitor daily labs, check lipid panel and A1C - up ad anatoly or fall precautions - start Atorvastatin 40 mg PO, Plavix 75 mg PO, ASA 81 mg - consider 30 day event monitoring at discharge if abnormalities noted on telemetry 08/31 -completed MRI screening form with the help of POA -pending MRI -echocardiogram shows less than 15% 09/01 -seen by cardiology, who recommended NST given severe cardiomyopathy, however this was cancelled as he was not cooperative for exam -MRI brain also to be attempted, anticipate similar issue -[facility] was called on patient today as he became acutely combative- was able to be reoriented by security, but haldol prn has been added to regimen, though all attempts to reorient and use nonpharmacological means to be implemented first -Na improving 123 > 125 -neurology consulted for tomorrow (2) Seizure: Code(s): R56.9 - Unspecified convulsions Status: Acute Assessment and Plan: - see above - given Keppra 1500 IV, continue as Keppra 2G BID. Medication refilled on 08/21/25. - check Keppra level - seizure precautions -neurology consult tomorrow (3) History of stroke: Code(s): Z86.73 - Personal history of transient ischemic attack (TIA), and cerebral infarction without residual deficits Status: Acute Assessment and Plan: - CT Head on 08/30 showed several old infarcts moderate-sized at the left parietal and occipital lobes, small at the right occipital lobe and a couple additional smaller old lacunar infarcts in the right frontal and left parietal lobe white matter. - previous residual left sided deficits -pending MRI (4) Pneumonia: Qualifiers: Laterality: unspecified laterality Lung location: unspecified part of lung Pneumonia type: due to unspecified organism Qualified Code(s): J18.9 - Pneumonia, unspecified organism Code(s): J18.9 - Pneumonia, unspecified organism Status: Acute Assessment and Plan: Patient initially met SIRS criteria due to heart rate and hypoxia. CXR concerning for possibility of pneumonia versus pulmonary edema. No leukocytosis. However lactic was 2.1. Checking procalcitonin. Blood cultures obtained on 08/30, follow. - started on Levaquin on 08/30. - supportive care: Mucinex, Tessalon Perles, Tylenol, DuoNebs (5) Chronic hyponatremia: Code(s): E87.1 - Hypo-osmolality and hyponatremia Status: Acute Assessment and Plan: Has history of chronic hyponatremia, during most recent admission possibly related to too much free water. Sodium levels fluctuated drastically in 2022 which is the most recent lab work available per chart review. Ranged from 127 to as high as 148. Most recently 131 on 07/22/2023. Upon admission the patient's sodium was 121. Has been as low as 116 in 2020. - check serum osmolality, urine osmolality, urine sodium, protein to creatinine ratio, urine creatinine - repeat BMP daily - neurochecks q4h - IV fluids: 1L bolus -> 125 mL/hr - regular diet -Na improving 123 > 125 (6) CHF (congestive heart failure): Qualifiers: Heart failure type: unspecified Heart failure chronicity: chronic Qualified Code(s): I50.9 - Heart failure, unspecified Code(s): I50.9 - Heart failure, unspecified Status: Acute Assessment and Plan: CXR showed interstitial opacities in both lungs, differential includes interstitial edema/interstitial pneumonia/chronic interstitial changes. - check BNP - no evidence of volume overload on exam - chart reviewed, no previous echo on file 08/31 Echocardiogram shows less than 15% Cardiology consulted- would like NST, however difficulties due to mental status noted. Diuretic not needed as he is euvolemic, GDMT with carvedilol 3.125mg bid, entresto bid, spironolactone 25mg qd started. Cardiology considers alcohol- related encephalopathy as component. (7) Atrial fibrillation: Qualifiers: Atrial fibrillation type: unspecified chronic Qualified Code(s): I48.20 - Chronic atrial fibrillation, unspecified Code(s): I48.91 - Unspecified atrial fibrillation Status: Acute Assessment and Plan: Initial EKG showed atrial far/tachycardia with RVR, rate 134. History of atrial fibrillation. HR now improved with IV fluids, currently ranging in the 80s. Cardiology consult Plan BMP was repeated this evening to trend the patient's sodium (121 -> 122). Patient developed mild hyperkalemia, K 5.4. Will treat with calcium gluconate and sodium bicarbonate. recheck at 1:00 a.m.. Diet: Regular GI Prophylaxis: N/a DVT Prophylaxis: SCDs IV fluids: 1L -> 125 mL/hr Lines/Tubes: Peripheral IV Code Status: Full code Subjective Date/time seen: 09/01/25 18:23 Interval history: Review of HPI: Patient is a 60-year-old gentleman admitted via emergency room on 08/30/2025 with the mental status changes. Patient is known history of stroke, seizure disorder, alcohol abuse at least last 2 years. Patient apparently not feeling for the last couple of days and called his family and subsequently brought to the emergency room. No complaints of chest pain, shortness of breath, leg edema. No complaints of fever or chills or seizures. No complaints of abdominal pain nausea vomiting or diarrhea. Past medical history significant for protein calorie malnutrition, hypothyroidism, chronic hyponatremia, chronic anemia, alcohol dependence. Admitting blood pressure in the emergency room was 140/106. Her was 138 per minute. Respirations 18 per minute. O2 saturation was 88% on room air. Admitting laboratory data available this can 6.7, hemoglobin 12.4 and platelets were normal. Sodium was 121, potassium 4.7, BUN is 15, creatinine 0.73. Troponin was less than 0.012. LFTs were normal. Admitting EKG revealed atrial flutter with rapid ventricular response at 134 per minute with right bundle- branch block and left axis deviation. Significant QRS widening noted Echocardiogram performed on 08/31/2025 revealed mildly enlarged left ventricle with severe LV systolic dysfunction and reduced ejection fraction less than 15%. Multiple areas of hypokinesis noted including anterior wall anterolateral wall, apical septum apical cap and basal inferior wall. There was mildly dilated right ventricle with reduced right ventricular systolic function. No significant valvular problems noted. No pericardial effusion noted. Cardiology was consulted. Previous echocardiogram on 07/17/2021 showed normal left ventricular size and systolic function is 65-70% and grade 1 diastolic dysfunction. Subjective: Patient was examined at the bedside. Patient is awake but confused and disoriented. His communication and level is irrelevant. Nuclear stress test could not be completed. His heart rate is 110 per minute in normal sinus rhythm. Patient had episode of supraventricular tachycardia last night and a rate of 140-150 per minute. Strip was reviewed and is suspicious for atrial flutter with 2-1 block. Review of Systems Review of Systems: All systems reviewed & are unremarkable except as noted in HPI and below Exam Narrative: LUE weakness. +dysarthria and word finding difficulty. Const: General: comfortable and no acute distress Other: , male, frail, chronically ill-appearing HENMT: Face/Nose/Sinus: Normal nares present Mouth: Yes dry mucous membranes Eyes: General: appearance normal, both eyes and all related structures Sclera: sclerae normal Pupils: Equal, round and reactive pupils present EOM: EOMs intact bilaterally Resp: Effort & Inspection: normal respiratory effort Auscultation: clear to auscultation bilaterally Cardio: Rate: regular rate Rhythm: regular rhythm Other: S1-S2 present without murmur, rub, ectopy GI: Other: Abdomen soft, nondistended, nontender. Normoactive bowel sounds in all quadrants. Skin: General skin exam: normal color and no rashes or lesions noted Wounds: no wounds Neuro: Cranial nerves: Yes Equal, round and reactive pupils present Other: A&O x3, poor situational recall. Generalized weakness noted, +4 in all extremities. However trace weakness noted in the left upper extremity compared to the right upper extremity, chronic per patient. +dysarthria and word-finding difficulty. No nystagmus noted, no gaze deviation, no facial palsy. No sensory deficits. Extrem: General: normal to inspection Psych: Other: Fair to poor insight and judgment at present, pleasant. No agitation noted. No restlessness. Objective Data Vital Signs Vital Signs: Vital Signs - 24 hr 08/31/25 20:00 08/31/25 20:00 08/31/25 20:00 Temperature 98.1 F Pulse Rate 95 98 98 Respiratory Rate 20 20 Blood Pressure 134/93 H Pulse Oximetry 100 100 Oxygen Delivery Room Air 08/31/25 21:01 08/31/25 22:00 08/31/25 23:40 Temperature 98 F Pulse Rate 74 100 98 Respiratory Rate 20 Blood Pressure 119/86 Pulse Oximetry 100 Oxygen Delivery 09/01/25 00:00 09/01/25 00:00 09/01/25 02:00 Temperature Pulse Rate 100 100 96 Respiratory Rate 20 Blood Pressure Pulse Oximetry 100 Oxygen Delivery Room Air 09/01/25 03:37 09/01/25 03:37 09/01/25 04:00 Temperature 97.9 F Pulse Rate 100 100 109 H Respiratory Rate 20 20 Blood Pressure 135/99 H Pulse Oximetry 100 94 Oxygen Delivery Room Air 09/01/25 06:00 09/01/25 08:00 09/01/25 08:00 Temperature 97.3 F L Pulse Rate 110 H 106 H Respiratory Rate 16 Blood Pressure 122/88 Pulse Oximetry 98 98 Oxygen Delivery Room Air 09/01/25 08:00 09/01/25 10:00 09/01/25 10:00 Temperature Pulse Rate 113 H 101 H 108 H Respiratory Rate Blood Pressure Pulse Oximetry Oxygen Delivery 09/01/25 11:55 09/01/25 12:00 09/01/25 12:00 Temperature 99.1 F Pulse Rate 107 H 140 H Respiratory Rate 16 Blood Pressure 134/76 Pulse Oximetry 98 98 Oxygen Delivery Room Air 09/01/25 14:00 09/01/25 16:00 Temperature 98.5 F Pulse Rate 97 105 H Respiratory Rate 16 Blood Pressure 117/86 Pulse Oximetry 93 Oxygen Delivery Intake/Output Intake/Output: Intake & Output 08/29/25 08/30/25 08/31/25 09/01/25 23:59 23:59 23:59 23:59 Intake Total 337.5 1800.4 Output Total 700 1625 580 Balance -362.5 175.4 -580 Meds/Results Medications: Active Medications Generic Name Dose Route Start Last Admin Trade Name Freq PRN Reason Stop Dose Admin Acetaminophen 650 mg 08/30/25 19:05 Acetaminophen 325 Mg Tablet PO Q4H PRN Mild Pain (1-3) or Fever Albuterol/Ipratropium 3 ml 08/30/25 21:05 Ipratropium 0.5 Mg/Albuterol Sulfate 2.5 Mg (Base) Ampul.Neb 3 Ml INHALATION Q6HRT PRN Shortness Of Breath Or Wheezing Aspirin 81 mg 08/31/25 09:00 09/01/25 09:59 Aspirin 81 Mg Enteric Tablet PO 81 mg QAM NESSA Administration Atorvastatin Calcium 40 mg 08/31/25 09:00 09/01/25 09:59 Atorvastatin 40 Mg Tablet PO 40 mg DAILY NESSA Administration Benzonatate 100 mg 08/30/25 21:05 Benzonatate 100 Mg Capsule PO TID PRN Cough Carvedilol 3.125 mg 08/31/25 21:00 09/01/25 10:00 Carvedilol 3.125 Mg Tablet PO 3.125 mg Q12HR NESSA Administration Clopidogrel Bisulfate 75 mg 08/31/25 09:00 09/01/25 10:00 Clopidogrel Bisulfate 75 Mg Tablet PO 75 mg QAM NESSA Administration Dextrose 12.5 gm 08/31/25 02:45 Dextrose 50% 25 Gm/50 Ml Syringe IV PUSH PRN PRN Hypoglycemia Protocol Glucose 15 gm 08/31/25 02:45 Glucose Oral Gel 15 Gm Of Glucse In 37.5 Gm Tube PO PRN PRN Hypoglycemia Protocol Guaifenesin 600 mg 08/31/25 09:00 09/01/25 09:59 Guaifenesin 12 Hr 600 Mg Tabcr PO 600 mg Q12HR NESSA Administration Haloperidol Lactate 0.5 mg 09/01/25 13:56 Haloperidol Lactate 5 Mg/Ml Vial IV PUSH DAILY PRN Agitation Levofloxacin/Dextrose 750 mg in 150 mls @ 100 mls/hr 08/30/25 21:05 08/31/25 22:30 Levaquin 750 Mg/D5w 150 Ml IVPB Infused Q24H NESSA Infusion Dextrose 1,000 mls @ 100 mls/hr 08/31/25 02:45 Dextrose 5% 1,000 Ml IVPB PRN PRN Hypoglycemia Protocol Levetiracetam 2,000 mg 08/31/25 09:00 09/01/25 09:59 Levetiracetam 500 Mg Tablet PO 2,000 mg Q12HR NESSA Administration Morphine Sulfate 2 mg 08/30/25 19:14 Morphine Sulfate (*Crx) 4 Mg/Ml Inj IV PUSH Q2H PRN Pain Rated 7-10 Ondansetron HCl 4 mg 08/30/25 19:05 Ondansetron Inj 4 Mg/2 Ml Vial IV PUSH Q4H PRN Nausea Sacubitril/Valsartan 1 tab 08/31/25 21:00 09/01/25 09:59 Sacubitril/Valsartan 24-26 Mg Tablet PO 1 tab Q12HR NESSA Administration Sodium Zirconium Cyclosilicate 10 gm 08/31/25 02:45 09/01/25 18:16 Sodium Zirconium Cyclosilicate 10 Gm Powd.Pack PO 09/02/25 02:44 Not Given TID@1000,1500,2200 [facility] Spironolactone 25 mg 09/01/25 09:00 09/01/25 09:59 Spironolactone 25 Mg Tablet PO 25 mg QAM NESSA Administration Radiology Results: ITS Impressions Head CT 08/30/25 15:50 IMPRESSION: 1. No acute intracranial process. 2. Several old infarcts moderate-sized at the left parietal and occipital lobes, small at the right occipital lobe and a couple additional smaller old lacunar infarcts in the right frontal and left parietal lobe white matter. 3. Age-related changes including moderate diffuse volume loss and mild scattered white matter hypoattenuation consistent with chronic small vessel ischemic disease. Chest X-Ray 08/30/25 16:28 IMPRESSION: 1. Interstitial opacities in both lungs. Differential includes interstitial edema, interstitial pneumonia or chronic interstitial changes. If symptoms persist or worsen, consider a short-term follow-up study or additional imaging for further assessment. Head/Neck CTA 08/30/25 16:39 IMPRESSION: 1. Limited study. There is no gross critical stenosis, occlusion or aneurysm identified Labs Labs: Laboratory Results - last 24 hr 08/31/25 08/31/25 09/01/25 19:24 20:13 04:13 WBC 11.5 H RBC 4.02 L Hgb 13.2 L Hct 38.8 L MCV 96.5 MCH 32.8 MCHC 34.0 RDW 13.8 Plt Count 277 MPV 9.0 Sodium 125 L Potassium 4.0 Chloride 89 L Carbon Dioxide 27 Anion Gap 9 BUN 17 Creatinine 0.73 Estim Creat Clear Calc 83 Estimated GFR > 60 Glucose 143 H POC Capillary Glucose 185 H Calcium 8.9 Total Bilirubin 0.8 AST 52 ALT 28 Alkaline Phosphatase 70 Ammonia NT-Pro-B Natriuret Pep > 34685 H Total Protein 6.9 Albumin 4.1 09/01/25 09/01/25 09/01/25 08:27 11:32 12:17 WBC RBC Hgb Hct MCV MCH MCHC RDW Plt Count MPV Sodium Potassium Chloride Carbon Dioxide Anion Gap BUN Creatinine Estim Creat Clear Calc Estimated GFR Glucose POC Capillary Glucose 119 H 126 H Calcium Total Bilirubin AST ALT Alkaline Phosphatase Ammonia < 9 L NT-Pro-B Natriuret Pep Total Protein Albumin 09/01/25 16:05 WBC RBC Hgb Hct MCV MCH MCHC RDW Plt Count MPV Sodium Potassium Chloride Carbon Dioxide Anion Gap BUN Creatinine Estim Creat Clear Calc Estimated GFR Glucose POC Capillary Glucose 137 H Calcium Total Bilirubin AST ALT Alkaline Phosphatase Ammonia NT-Pro-B Natriuret Pep Total Protein Albumin Quality VTE Prophylaxis VTE prophylaxis: mechanical ordered Hospitalist MIPS Advance Care Plan I have confirmed that the patient's Advanced Care Plan is present, code status is documented, or surrogate decision maker is listed in patient medical record.: Yes Medication Reconciliation I have utilized all available resources to obtain, update and review the patients current medications (includes all prescriptions, OTC, herbals, cannabis, and nutritional supplements).: Yes
--- NOTE | 2025-09-01 18:45 | PC.NURSE ---
Pt stating Let me the f*ck out of here! Standing up, unable to redirect. Dr. Mai at bedside. Staff standing with pt to ensure safety. Dr. Mai speaking with patient attempting to get back into bed. After approximately 10 minutes pt SOB, allowed staff to assist back to bed.
[2025-09-01] MEDS: HALOPERIDOL LACTATE 5 MG/ML VIAL IV PUSH (18:57)
[2025-09-02] VITALS (19 sets, daily range): BP systolic 115–153; BP diastolic 89–102; PULSE 85–113; RESP 18–28; TEMP 36.6–36.9; O2SAT 93–98
--- NOTE | 2025-09-02 01:29 | ECG_ITS ---
Test Date: 2025-09-02 01:43:44 Measurements Intervals [place] Rate: 97 P: 40 OH: 147 QRS: 269 QRSD: 147 T: 60 QT: 361 QTc: 459 Interpretive Statements SINUS RHYTHM RIGHT AXIS DEVIATION RIGHT BUNDLE BRANCH BLOCK INFERIOR INFARCT, AGE INDETERMINATE MODERATE T-WAVE ABNORMALITY, CONSIDER LATERAL ISCHEMIA BASELINE ARTIFACT- I, II, III, AVR, AVL, AVF, V1-V6 ABNORMAL ECG Compared to ECG 08/31/2025 03:51:07 T-wave abnormality now present Possible ischemia now present Electronically Signed On 09-02-2025 05:19:59 CDT by James Cox D.O.
[2025-09-02 04:28] LABS: Hematocrit 41.1 % (42.0-52.0); Hemoglobin 14.3 g/dL (14.0-18.0); Immature Granulocyte Percent A 0.6 % (0-0.5); Lymphocytes Absolute Auto 1.54 K/mm3 (0.9-3.2); Mean Corpuscular HGB Conc 34.8 g/dl (32-36); Mean Corpuscular Hemoglobin 33.0 pg (26-34); Mean Corpuscular Volume 94.9 fl (80-100); Nucleated Red Blood Cells Absolute Auto 0.000 K/mm3 (0.0-0.012); Nucleated Red Blood Cells Perc 0.0 % (0.0-0.2); Platelet Count Result 302 k/mm3 (150-375); Red Blood Count 4.33 M/mm3 (4.6-6.20); White Blood Count 10.9 K/mm3 (4.5-10.0)
[2025-09-02 04:41] LABS: Alanine Aminotransferase 27 U/L (6-50); Albumin Level 3.7 g/dL (3.5-5.1); Alkaline Phosphatase 66 U/L (38-126); Anion Gap 6 mmol/L (4-12); Aspartate Amino Transferase 60 U/L (17-59); Bilirubin,Total 0.7 mg/dL (0.2-1.3); Blood Urea Nitrogen 28 mg/dL (9-20); Calcium 8.5 mg/dL (8.4-10.2); Carbon Dioxide 29 mmol/L (22-30); Chloride 91 mmol/L (98-107); Estimated CRCL calculation 74 ml/min; Estimated Glomerular Filt Rate > 60; Glucose 122 mg/dL (65-110); Potassium 3.4 mmol/L (3.4-5.0); Sodium 126 mmol/L (137-145); Total Protein 6.3 g/dL (6.3-8.2)
[2025-09-02] MEDS: ASPIRIN 81 MG ENTERIC TABLET PO (08:50)
[2025-09-02] MEDS: SACUBITRIL/VALSARTAN 24-26 MG TABLET 1 TAB PO (08:50)
[2025-09-02] MEDS: ATORVASTATIN 40 MG TABLET PO (08:51)
[2025-09-02] MEDS: CLOPIDOGREL BISULFATE 75 MG TABLET PO (08:53)
[2025-09-02] MEDS: SPIRONOLACTONE 25 MG TABLET PO (08:53)
[2025-09-02] MEDS: guaiFENesin 12 HR 600 MG TABCR PO (08:53)
[2025-09-02] MEDS: NICOTINE (*PBKC) 21 MG PATCH 1 PATCH TRANSDERM (08:59)
[2025-09-02] MEDS: levoFLOXacin 750 MG/D5W 150 ML 750 MG/150 ML BAG 100 MG IVPB (09:00)
--- NOTE | 2025-09-02 11:14 | P.PNCA_ITS ---
Progress Note: A&P Assessment and Plan (1) Atrial fibrillation: Qualifiers: Atrial fibrillation type: unspecified chronic Qualified Code(s): I48.20 - Chronic atrial fibrillation, unspecified Code(s): I48.91 - Unspecified atrial fibrillation Status: Acute (2) Ischemic cardiomyopathy: Code(s): I25.5 - Ischemic cardiomyopathy Status: Acute (3) Seizure: Code(s): R56.9 - Unspecified convulsions Status: Acute (4) AMS (altered mental status): Qualifiers: Altered mental status type: unspecified Qualified Code(s): R41.82 - Altered mental status, unspecified Code(s): R41.82 - Altered mental status, unspecified Status: Acute (5) Cerebrovascular accident: Code(s): I63.9 - Cerebral infarction, unspecified Status: Acute (6) Alcohol withdrawal seizure: Code(s): F10.939 - Alcohol use, unspecified with withdrawal, unspecified; R56.9 - Unspecified convulsions Status: Acute (7) Alcohol dependence: Code(s): F10.20 - Alcohol dependence, uncomplicated Status: Resolved Plan Assessment: 1. Patient with severe cardiomyopathy ejection fraction less than 15% with multiple wall motion abnormalities. Previous echocardiogram in 2020 had revealed preserved systolic function in the range of 60%. Evaluate for underlying coronary artery disease. Differential diagnosis may include tachycardia induced cardiomyopathy, ischemic heart disease with previous stenting extensive anterior wall myocardial infarction or alcohol-related cardiomyopathy. 2. Presentation with atrial flutter with rapid ventricular response and right bundle branch block. Patient now converted to normal sinus rhythm with paroxysms of atrial flutter. A recent follow-up electrocardiogram on no 08/31/2025 reveals normal sinus rhythm with right bundle-branch block and heart rate of 89 per minute. Suggestion for inferior and anteroseptal infarct. 3. History of chronic alcohol abuse head protein caloric malnutrition presents with mental status changes. Patient has severe hyponatremia with sodium as low as 121 on admission. Sodium now is 123, potassium 4.7, BUN is 14 creatinine 0.6. Blood glucose is elevated at 160 per History of alcoholic cirrhosis. 4. History of hypothyroidism and seizure disorder. Seizure source likely secondary to alcohol withdrawal. 5. History of stroke in the past. Multiple other problems including history of hypertension, orthostatic hypotension, chronic hyponatremia and failure to thrive. Recommendation; 1. Chronically debilitated patient with history of previous stroke, seizure disorder, cirrhosis of liver and failure to thrive has severely reduced the ejection fractions age of 10-15% by echocardiogram. Multiple wall motion abnormalities are noted suggesting ischemic etiology. 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 Patient appears to be stable and suitable for Lexiscan nuclear stress test tomorrow. Discussed with patient at the bedside. Nuclear stress test will be attempted to do today if patient remains stable[place] [address]. Clinically patient appears to be euvolemic without leg edema, shortness of breath or orthopnea. Possibly chronically compensated systolic heart failure. -Will not start diuretic at this time since patient has no leg edema or other signs of fluid overload. 3. Currently blood pressure is 115/89. Heart rate is 87 per minute. Patient started on guideline directed medical therapy for chronic systolic heart failure including carvedilol 3.125 mg b.i.d., Entresto 24-26 b.i.d. and Aldactone 25 mg daily. -will discontinue carvedilol and change to metoprolol succinate 25 mg b.i.d. to help with cardiac arrhythmias/paroxysmal atrial flutter with rapid ventricular response. Not a candidate for long-term oral anticoagulation as discussed earlier. Continue with aspirin 81 mg daily. 4. Conservative medical management would be for an for this patient. Patient is full code. Poor prognosis due to alcohol addiction, seizure disorder, alcoholic cirrhosis of liver and chronic mental status changes. Patient may have alcohol- related encephalopathy. 5. Continue to monitor patient. Based on his ejection fraction patient is a candidate for external defibrillator or 90 days for now at the time of discharge. Overall patient does not appear to be a good candidate to do outpatient LifeVest. 6. Laboratory data reviewed from today. Subjective Date/time seen: 09/02/25 11:14 Interval history: Review of HPI: Patient is a 60-year-old gentleman admitted via emergency room on 08/30/2025 with the mental status changes. Patient is known history of stroke, seizure disorder, alcohol abuse at least last 2 years. Patient apparently not feeling for the last couple of days and called his family and subsequently brought to the emergency room. No complaints of chest pain, shortness of breath, leg edema. No complaints of fever or chills or seizures. No complaints of abdominal pain nausea vomiting or diarrhea. Past medical history significant for protein calorie malnutrition, hypothyroidism, chronic hyponatremia, chronic anemia, alcohol dependence. Admitting blood pressure in the emergency room was 140/106. Her was 138 per min [place]. Respirations 18 per minute. O2 saturation was 88% on room air. Admitting laboratory data available this can 6.7, hemoglobin 12.4 and platelets were normal. Sodium was 121, potassium 4.7, BUN is 15, creatinine 0.73. Troponin was less than 0.012. LFTs were normal. Admitting EKG revealed atrial flutter with rapid ventricular response at 134 per minute with right bundle- branch block and left axis deviation. Significant QRS widening noted Echocardiogram performed on 08/31/2025 revealed mildly enlarged left ventricle with severe LV systolic dysfunction and reduced ejection fraction less than 15%. Multiple areas of hypokinesis noted including anterior wall anterolateral wall, apical septum apical cap and basal inferior wall. There was mildly dilated right ventricle with reduced right ventricular systolic function. No significant valvular problems noted. No pericardial effusion noted. Cardiology was consulted. Previous echocardiogram on 07/17/2021 showed normal left ventricular size and systolic function is 65-70% and grade 1 diastolic dysfunction. Subjective: Patient was examined at the bedside. Patient is more awake alert today. Patient has one-to-one sitter. Patient apparently had psych problems last night. Patient is going for MRI scan of the brain and nuclear stress test today if stable. Blood pressure 115/89 and heart rate is 87 per minute. Monitor shows normal sinus rhythm. Episodes of SVT/rapid heartbeat at night in the range of 160 suspect paroxysmal atrial flutter. In view of his history of cirrhosis of liver, mental status changes and seizure disorder, I am not sure if it is safe to start this patient on systemic anticoagulation for atrial flutter. Okay to start patient on aspirin 81 mg daily. Laboratory data show normal PT ,PTT. Review of Systems Review of Systems: More awake and alert. Twelve point review of system was completed. Constitutional negative for weight loss, fever or chills. Head and neck review of systems negative. Pulmonary system negative for shortness of breath, cough hemoptysis. Cardiovascular system negative for chest pain, shortness of breath or heart palpitations. Periods of SVT/flutter with rapid ventricle response noted on the monitor. Gastrointestinal negative for abdominal pain, nausea vomiting or diarrhea. Neurovascular intact. Patient mental status fluctuates suspect chronic encephalopathy from chronic alcohol abuse. Exam Narrative: Patient was examined at the bedside. Patient is awake alert in somewhat incoherent. No tremors noted. Blood pressure is 122/88 and heart rate is 101 per minute. Head and neck examination is unremarkable. Sclerae is nonicteric. Neck is supple. There is no JVD or carotid bruit. Lungs are clear to auscultation infarction. Heart sounds reveal normal S1-S2. No S3 is present there is soft systolic murmur noted at the apex. Abdomen is soft and nontender there is no ascites or hepatosplenomegaly. Bowel sounds are present. Extremities revealed no pedal edema. Neurological examination cannot be assessed. Psych examination cannot be assessed. Objective Data Vital Signs Vital Signs: Vital Signs - 24 hr 09/01/25 11:55 09/01/25 12:00 09/01/25 12:00 Temperature 37.3 C Pulse Rate 107 H 140 H Respiratory Rate 16 Blood Pressure 134/76 Pulse Oximetry 98 98 Oxygen Delivery Room Air 09/01/25 14:00 09/01/25 16:00 09/01/25 16:00 Temperature 36.9 C Pulse Rate 97 105 H Respiratory Rate 16 Blood Pressure 117/86 Pulse Oximetry 93 93 Oxygen Delivery Room Air 09/01/25 16:00 09/01/25 18:00 09/01/25 19:45 Temperature Pulse Rate 104 H 113 H Respiratory Rate Blood Pressure Pulse Oximetry Oxygen Delivery Room Air 09/01/25 19:49 09/01/25 20:00 09/01/25 20:00 Temperature Pulse Rate 96 112 H 106 H Respiratory Rate 20 Blood Pressure 114/75 Pulse Oximetry 100 Oxygen Delivery 09/01/25 22:00 09/01/25 23:37 09/01/25 23:49 Temperature Pulse Rate 115 H 102 H Respiratory Rate Blood Pressure 120/92 H Pulse Oximetry Oxygen Delivery Room Air 09/02/25 00:00 09/02/25 02:00 09/02/25 03:12 Temperature Pulse Rate 100 94 Respiratory Rate Blood Pressure Pulse Oximetry Oxygen Delivery Room Air 09/02/25 04:00 09/02/25 04:00 09/02/25 05:55 Temperature 36.6 C Pulse Rate 91 95 92 Respiratory Rate 18 Blood Pressure 131/92 H Pulse Oximetry 98 Oxygen Delivery 09/02/25 07:47 09/02/25 08:48 Temperature 36.7 C Pulse Rate 87 92 Respiratory Rate 18 Blood Pressure 115/89 Pulse Oximetry 97 Oxygen Delivery Intake/Output Intake/Output: Intake & Output 08/30/25 08/31/25 09/01/25 09/02/25 23:59 23:59 23:59 23:59 Intake Total 337.5 1800.4 195 590 Output Total 700 1625 855 Balance -362.5 175.4 -660 590 Meds/Results Medications: Active Medications Generic Name Dose Route Start Last Admin Trade Name Freq PRN Reason Stop Dose Admin Acetaminophen 650 mg 08/30/25 19:05 Acetaminophen 325 Mg Tablet PO Q4H PRN Mild Pain (1-3) or Fever Albuterol/Ipratropium 3 ml 08/30/25 21:05 Ipratropium 0.5 Mg/Albuterol Sulfate 2.5 Mg (Base) Ampul.Neb 3 Ml INHALATION Q6HRT PRN Shortness Of Breath Or Wheezing Aspirin 81 mg 08/31/25 09:00 09/02/25 08:50 Aspirin 81 Mg Enteric Tablet PO 81 mg QAM NESSA Administration Atorvastatin Calcium 40 mg 08/31/25 09:00 09/02/25 08:51 Atorvastatin 40 Mg Tablet PO 40 mg DAILY NESSA Administration Benzonatate 100 mg 08/30/25 21:05 Benzonatate 100 Mg Capsule PO TID PRN Cough Carvedilol 3.125 mg 08/31/25 21:00 09/02/25 08:48 Carvedilol 3.125 Mg Tablet PO 3.125 mg Q12HR NESSA Administration Clopidogrel Bisulfate 75 mg 08/31/25 09:00 09/02/25 08:53 Clopidogrel Bisulfate 75 Mg Tablet PO 75 mg QAM NESSA Administration Dextrose 12.5 gm 08/31/25 02:45 Dextrose 50% 25 Gm/50 Ml Syringe IV PUSH PRN PRN Hypoglycemia Protocol Glucose 15 gm 08/31/25 02:45 Glucose Oral Gel 15 Gm Of Glucse In 37.5 Gm Tube PO PRN PRN Hypoglycemia Protocol Guaifenesin 600 mg 08/31/25 09:00 09/02/25 08:53 Guaifenesin 12 Hr 600 Mg Tabcr PO 600 mg Q12HR NESSA Administration Dextrose 1,000 mls @ 100 mls/hr 08/31/25 02:45 Dextrose 5% 1,000 Ml IVPB PRN PRN Hypoglycemia Protocol Levofloxacin/Dextrose 750 mg in 150 mls @ 100 mls/hr 09/02/25 09:00 09/02/25 09:00 Levaquin 750 Mg/D5w 150 Ml IVPB 100 mls/hr Q24H NESSA Administration Levetiracetam 2,000 mg 08/31/25 09:00 09/02/25 08:47 Levetiracetam 500 Mg Tablet PO 2,000 mg Q12HR NESSA Administration Morphine Sulfate 2 mg 08/30/25 19:14 Morphine Sulfate (*Crx) 4 Mg/Ml Inj IV PUSH Q2H PRN Pain Rated 7-10 Nicotine 1 patch 09/01/25 19:00 09/02/25 08:59 Nicotine (*Pbkc) 21 Mg Patch TRANSDERM 1 patch DAILY NESSA Administration Ondansetron HCl 4 mg 08/30/25 19:05 Ondansetron Inj 4 Mg/2 Ml Vial IV PUSH Q4H PRN Nausea Sacubitril/Valsartan 1 tab 08/31/25 21:00 09/02/25 08:50 Sacubitril/Valsartan 24-26 Mg Tablet PO 1 tab Q12HR NESSA Administration Spironolactone 25 mg 09/01/25 09:00 09/02/25 08:53 Spironolactone 25 Mg Tablet PO 25 mg QAM NESSA Administration Thiamine HCl 100 mg 09/02/25 10:55 Thiamine Hcl 100 Mg Tablet PO QAM [facility] Radiology Results: ITS Impressions Head CT 08/30/25 15:50 IMPRESSION: 1. No acute intracranial process. 2. Several old infarcts moderate-sized at the left parietal and occipital lobes, small at the right occipital lobe and a couple additional smaller old lacunar infarcts in the right frontal and left parietal lobe white matter. 3. Age-related changes including moderate diffuse volume loss and mild scattered white matter hypoattenuation consistent with chronic small vessel ischemic disease. Chest X-Ray 08/30/25 16:28 IMPRESSION: 1. Interstitial opacities in both lungs. Differential includes interstitial edema, interstitial pneumonia or chronic interstitial changes. If symptoms persist or worsen, consider a short-term follow-up study or additional imaging for further assessment. Head/Neck CTA 08/30/25 16:39 IMPRESSION: 1. Limited study. There is no gross critical stenosis, occlusion or aneurysm identified Labs Labs: Laboratory Results - last 24 hr 09/01/25 09/01/25 09/01/25 11:32 12:17 16:05 WBC RBC Hgb Hct MCV MCH MCHC RDW Plt Count MPV Immature Gran % (Auto) Neut % (Auto) Lymph % (Auto) [place] % (Auto) Eos % (Auto) Baso % (Auto) Lymph # (Auto) [place] # (Auto) Eos # (Auto) Baso # (Auto) Abs Immat Gran (auto) Absolute Neuts (auto) Absolute Nucleated RBC Nucleated RBC % Sodium Potassium Chloride Carbon Dioxide Anion Gap BUN Creatinine Estim Creat Clear Calc Estimated GFR Glucose POC Capillary Glucose 126 H 137 H Calcium Total Bilirubin AST ALT Alkaline Phosphatase Ammonia < 9 L Total Protein Albumin DANIELE Screen DANIELE Titer DANIELE Titer 2 DANIELE Titer 3 DANIELE Pattern DANIELE Pattern 2 DANIELE Pattern 3 DANIELE Comment 09/02/25 09/02/25 03:56 07:20 WBC 10.9 H RBC 4.33 L Hgb 14.3 Hct 41.1 L MCV 94.9 MCH 33.0 MCHC 34.8 RDW 13.6 Plt Count 302 MPV 9.6 Immature Gran % (Auto) 0.6 H Neut % (Auto) 74.7 H Lymph % (Auto) 14.1 L [place] % (Auto) 10.2 H Eos % (Auto) 0.0 Baso % (Auto) 0.4 Lymph # (Auto) 1.54 [place] # (Auto) 1.1 H Eos # (Auto) 0.0 Baso # (Auto) 0.0 Abs Immat Gran (auto) 0.07 H Absolute Neuts (auto) 8.2 H Absolute Nucleated RBC 0.000 Nucleated RBC % 0.0 Sodium 126 L Potassium 3.4 Chloride 91 L Carbon Dioxide 29 Anion Gap 6 BUN 28 H D Creatinine 0.79 Estim Creat Clear Calc 74 Estimated GFR > 60 Glucose 122 H POC Capillary Glucose 78 Calcium 8.5 Total Bilirubin 0.7 AST 60 H ALT 27 Alkaline Phosphatase 66 Ammonia Total Protein 6.3 Albumin 3.7 DANIELE Screen Cancelled DANIELE Titer Cancelled DANIELE Titer 2 Cancelled DANIELE Titer 3 Cancelled DANIELE Pattern Cancelled DANIELE Pattern 2 Cancelled DANIELE Pattern 3 Cancelled DANIELE Comment Cancelled
--- NOTE | 2025-09-02 11:48 | EST_ITS ---
Patient Info Name: Simon Barraza Age: 60 years : 1965 Gender: Male Ht: 72 in Wt: 136 lbs BSA: 1.76 m2 HR: 87 bpm BP: 120 / 97 mmHg Exam Date: 09/02/2025 11:48 AM Patient Status: I Admit Date: 09/01/2025 Exam Type: CA stress joaquin w NM Staff Referring Physician: Jesse Thorpe Attending Provider: Arturo Abraham Exercise Technologist: Rayna Iniguez Exercise Physician: Jesse Thorpe Summary 1. No abnormal ST-T wave changes with lexiscan. 2. Please correlate with nuclear medicine images, reported separately. Protocol: Lexiscan Stress ECG Details Stage: REST Duration (min): 0 min : 41 sec HR (bpm): 88 SBP (mmHg): 120 DBP (mmHg): 97 Stage: REST Duration (min): 7 min : 16 sec HR (bpm): 87 SBP (mmHg): 120 DBP (mmHg): 97 Stage: STAGE 1 Duration (min): 1 min : 0 sec HR (bpm): 96 SBP (mmHg): 120 DBP (mmHg): 97 Stage: RECOVERY Duration (min): 1 min : 0 sec HR (bpm): 112 SBP (mmHg): 120 DBP (mmHg): 97 Stage: RECOVERY Duration (min): 2 min : 0 sec HR (bpm): 109 SBP (mmHg): 120 DBP (mmHg): 97 Stage: RECOVERY Duration (min): 3 min : 0 sec HR (bpm): 107 SBP (mmHg): 123 DBP (mmHg): 90 Stage: RECOVERY Duration (min): 4 min : 0 sec HR (bpm): 105 SBP (mmHg): 123 DBP (mmHg): 90 Stage: RECOVERY Duration (min): 5 min : 0 sec HR (bpm): 102 SBP (mmHg): 122 DBP (mmHg): 92 Stage: RECOVERY Duration (min): 6 min : 0 sec HR (bpm): 100 SBP (mmHg): 122 DBP (mmHg): 92 Stage: RECOVERY Duration (min): 7 min : 0 sec HR (bpm): 102 SBP (mmHg): 116 DBP (mmHg): 85 Stage: RECOVERY Duration (min): 7 min : 3 sec HR (bpm): 103 SBP (mmHg): 116 DBP (mmHg): 85 Rest HR: 87 bpm Peak HR: 115 bpm Rest Sys BP: 120 mmHg Peak Sys BP: 123 mmHg Max Pred HR: 161 bpm % Max Pred HR: 71 % Target HR: 137 bpm Max RPP: 14,145 bpm*mmHg Total Time: 1 min : 0 sec Rest [place] BP: 97 mmHg Peak [place] BP: 90 mmHg Total Dose: 0.4 mg Resting ECG Sinus rhythm with right bundle branch block. Stress ECG No abnormal ST-T-wave changes with Lexiscan. Arrhythmias Occasional premature ventricular contractions. Report Signatures
--- NOTE | 2025-09-02 12:30 | PCNEURO ---
Spoke with nurse in AM about completing EEG when 2 other EEGs came through that are priority. Will get to today or first thing tomorrow morning.
--- NOTE | 2025-09-02 13:17 | PCNEURO ---
pt is currently getting stress test done. will come back at 2 to try to complete
[2025-09-02] MEDS: THIAMINE HCL 100 MG TABLET PO (13:54)
[2025-09-02] MEDS: OLANZapine 5 MG, WATER, STERILE FOR INJECTION 2.1 ML IM (16:33)
--- NOTE | 2025-09-02 17:29 | WPDNEURCNPN ---
Assessment and Plan Assessment and plan (1) Cerebrovascular disease: Code(s): I67.9 - Cerebrovascular disease, unspecified Status: Acute (2) Seizure disorder: Code(s): G40.909 - Epilepsy, unspecified, not intractable, without status epilepticus Status: Acute (3) Alcohol use disorder: Code(s): F10.90 - Alcohol use, unspecified, uncomplicated Status: Acute (4) CHF (congestive heart failure): Qualifiers: Heart failure type: unspecified Heart failure chronicity: chronic Qualified Code(s): I50.9 - Heart failure, unspecified Code(s): I50.9 - Heart failure, unspecified Status: Acute (5) Atrial fibrillation: Qualifiers: Atrial fibrillation type: unspecified chronic Qualified Code(s): I48.20 - Chronic atrial fibrillation, unspecified Code(s): I48.91 - Unspecified atrial fibrillation Status: Acute (6) Ischemic cardiomyopathy: Code(s): I25.5 - Ischemic cardiomyopathy Status: Acute (7) Hyponatremia: Code(s): E87.1 - Hypo-osmolality and hyponatremia Status: Acute Plan Patient has significant fluctuation in his behavior and at times become more aggressive another times he becomes anxious requiring treatment. It was noted that he has been on Keppra 4000 mg a day for 2 years or more. This was increased because he was having a lot of seizures in 2022. In fact lacosamide 100 mg twice a day was also added but he is no longer on this medication and he has not been seen at neurology office for almost 2 years. I will suggest to add lacosamide 100 mg twice a day. I shall review EEG and update the findings. His MRI shows a new infarct in the left hippocampal area. It is indeed very small and difficult to discern nevertheless the old infarct seen on both cerebral hemispheres and there is fair amount of atrophy. He also has significant cardiomyopathy. It was noted that in 1999 he was admitted to ICU and had an EEG that captured 2 seizures. And hence the dose of Keppra was increased gradually up to 4000 mg a day. He was seen by Dr. Fraga on 09/10/2023. Consult date: 09/02/25 HPI: Simon Barraza is a 60 year old male With history of CVA with residual left hemiparesis, seizure disorder, prior history of alcoholism, hyponatremia, atrial fibrillation, cardiomyopathy with a cardiac ejection fraction of 15-20% presented to the hospital with altered mental status. CT angiogram of the head and neck were performed which did not show any significant abnormality. Review of his records revealed that he was having a lot of seizures when he was seen by Dr. Fraga in 2022 and the doses of Keppra increased all the way up to 4000 mg in because he still kept having seizures he lacosamide was added at 100 mg twice a day in addition to Keppra. It appears the patient is no longer on lacosamide but he is still on Keppra. At times he becomes combative and other times become confused. I spoke to the nursing staff since I was able to find him in the room to see on my 3rd attempt that they had examined him an hour or so ago and he was awake and alert and he was moving both upper and lower limbs and they did not see a significant focal deficit nevertheless he was getting extremely anxious and he was given some anxiolytic when I saw him he was drowsy although arousable but unable to cooperate very much. His sister was there and did very helpful. His serum sodium which was 121 on admission is up to 126 now. MRI of the brain shows multiple old infarcts in both cerebral hemispheres and also a new infarct in the left hippocampal area. A Lexiscan stress test was performed which did not show any ST T wave changes. However cardiac perfusion study shows moderate to severe non reversible perfusion defect consistent with the infarct of the mid inferior septal and mid inferior to lesser degree of mid inferior lateral segments. Global hypokinesia with moderately decreased left ventricular ejection fraction measuring 26% was reported. It was noted that his BNP level was very high at greater than 30,000. LDL was 67. Liver enzymes were normal is only level was also normal. To his sister he has not been drinking for last 2 years. He lives at home by himself. Review of Systems Review of Systems: ROS unobtainable: Yes unobtainable due to mental status PMFSH Past Medical History Medical History (Updated 09/02/25 @ 17:38 by Wesley Cueva MD) Seizure disorder Cerebrovascular disease Alcoholic cirrhosis of liver COPD (chronic obstructive pulmonary disease) HLD (hyperlipidemia) Atrial fibrillation Colon cancer screening Erosive gastritis Aphasia Encephalopathy Protein calorie malnutrition Gastroesophageal reflux disease Hypothyroidism Chronic hyponatremia Chronic anemia Cerebrovascular accident With left-sided residual weakness. Congestive heart failure Echocardiogram on 07/17/2021 showed normal LV chamber dimension and function with an estimated EF of 65 to 70% and grade 1 diastolic dysfunction with mild pulmonary hypertension estimated pulmonary arterial systolic pressure of 37 mmHg. COVID (08/2021) DVT prophylaxis Alcohol dependence last drink in 2022 Adult failure to thrive Orthostatic hypotension Tobacco dependence Hypertension Surgical History Surgical History History of excision of testicular mass With benign histology. Family History Family History Father Chronic obstructive pulmonary disease Congestive heart failure Hypertension Mother Abdominal aortic aneurysm rupture Daughter Type 1 diabetes mellitus Social History Social History Social History: The patient lives with his brother The patient has 3 children. And is disabled. The patient states that he likes to drink whiskey and does not like to drink beer. The patient is single and unemployed Surrogate decision maker: Bere Gagnon, sister. Code status: Full code. Smoking packs per day: 1 Smoking cigarettes per day: 20.0 Years smoked: 25 Smoking pack-years: 25.00 Smoking status: Current every day smoker Tobacco type: cigarettes Additional smoking assessment comments: patient on nicotine patch Alcohol intake: former Alcohol use details: None Substance use: never Substance use type: does not use Other substance usage details: 200ml whiskey/day Do You Feel Safe in your Home?: Yes Lack of Transportation: No Lack of Food: Never True Current Housing: I Have Housing Concerned About Future Housing: No Difficulty Paying Gas/Electric Bills: No Difficulty Paying for Meds: No Currently Unemployed: No Education: High School Diploma/GED Difficulty w/ Childcare or Family Care: No Additional living arrangements comments: Resident at [facility]. Additional occupation/education comments: Unemployed. Spiritual care concerns: No Meds Home Medications and Allergies Home Medications ?Medication ?Instructions ?Recorded ?Confirmed ?Type lisinopril 20 mg tablet 20 mg feeding tube DAILY 04/10/23 08/31/25 History hydrocodone 7.5 mg-acetaminophen 1 tablet PO Q12H PRN pain 08/30/25 08/31/25 History 325 mg tablet levetiracetam 1,000 mg tablet 2,000 mg PO Q12H 08/30/25 08/30/25 History duloxetine 30 mg capsule,delayed 60 mg PO DAILY 08/31/25 08/31/25 History release lacosamide 200 mg tablet 200 mg PO Q12H 08/31/25 08/31/25 History levothyroxine 25 mcg tablet 25 mcg PO DAILY 08/31/25 08/31/25 History Allergies Allergy/AdvReac Type Severity Reaction Status Date / Time amoxicillin Allergy Rash Verified 08/30/25 16:58 gadobenic acid (From AdvReac Difficulty Verified 08/30/25 16:58 contrast - MRI) Breathing iohexol (From contrast - CT, AdvReac Difficulty Verified 08/30/25 16:58 X-RAY) Breathing Vital Signs Vital Signs - 24 hr 09/01/25 18:00 09/01/25 19:45 09/01/25 19:49 Temperature Pulse Rate 113 H 96 Respiratory Rate Blood Pressure Pulse Oximetry Oxygen Delivery Room Air 09/01/25 20:00 09/01/25 20:00 09/01/25 22:00 Temperature Pulse Rate 112 H 106 H 115 H Respiratory Rate 20 Blood Pressure 114/75 Pulse Oximetry 100 Oxygen Delivery 09/01/25 23:37 09/01/25 23:49 09/02/25 00:00 Temperature Pulse Rate 102 H 100 Respiratory Rate Blood Pressure 120/92 H Pulse Oximetry Oxygen Delivery Room Air 09/02/25 02:00 09/02/25 03:12 09/02/25 04:00 Temperature 97.9 F Pulse Rate 94 91 Respiratory Rate 18 Blood Pressure 131/92 H Pulse Oximetry 98 Oxygen Delivery Room Air 09/02/25 04:00 09/02/25 05:55 09/02/25 07:47 Temperature 98.1 F Pulse Rate 95 92 87 Respiratory Rate 18 Blood Pressure 115/89 Pulse Oximetry 97 Oxygen Delivery 09/02/25 08:00 09/02/25 08:48 09/02/25 12:00 Temperature Pulse Rate 92 Respiratory Rate Blood Pressure Pulse Oximetry Oxygen Delivery Room Air Room Air 09/02/25 16:14 Temperature 98.5 F Pulse Rate 98 Respiratory Rate 20 Blood Pressure 128/94 H Pulse Oximetry 97 Oxygen Delivery Exam Narrative: Difficult evaluation since the patient has received sedating medication prior to my visit late afternoon. Right hand appears slightly weaker compared the left side but again he is not able to cooperate very well. He does seem to be moving his both lower limbs. There is no apparent facial asymmetry. No involuntary movements were seen. Results Labs 09/02/25 03:56 09/02/25 03:56 Labs: Short CBC 09/02/25 Range/Units 03:56 WBC 10.9 H (4.5-10.0) K/mm3 Hgb 14.3 (14.0-18.0) g/dL Hct 41.1 L (42.0-52.0) % Plt Count 302 (150-375) k/mm3 BMP 09/02/25 03:56 Sodium 126 L Potassium 3.4 Chloride 91 L Carbon Dioxide 29 BUN 28 H D Creatinine 0.79 Glucose 122 H Calcium 8.5 Liver Function 09/02/25 Range/Units 03:56 Total Bilirubin 0.7 (0.2-1.3) mg/dL AST 60 H (17-59) U/L ALT 27 (6-50) U/L Alkaline Phosphatase 66 (38-126) U/L Albumin 3.7 (3.5-5.1) g/dL
--- NOTE | 2025-09-02 17:46 | WPDNEUROLOGY ---
Neurology EEG Report General Information Date of Study: 09/02/25 TEST electroencephalogram DIAGNOSIS seizure disorder, CVA, altered mental status CONDITION OF RECORDING bedside recording EEG NUMBER [id number] CLINICAL HISTORY history of seizure like activity and altered mental status. There is remote history of alcoholism and patient has had multiple strokes. Patient is currently on Keppra. EEG DESCRIPTION The background activity at the beginning of the recording appears poorly organized however when the patient relaxed posterior dominant alpha rhythm at 10 hertz was identifiable in the posterior head region at times better seen over the right hemisphere than left side. Amplitude was 15-30 microvolts. Frequent blink artifacts were seen. Muscle tension artifacts were also noted. Patient was frequently drowsy but did not progress to stage 2 sleep. Hyperventilation was not performed. Photic stimulation was performed during which no significant abnormal background changes were seen. IMPRESSION This is an essentially normal EEG obtained during awake and drowsy states. Frequent blink artifacts were noted throughout the recording. No definite focal or paroxysmal epileptiform abnormalities were noted.
[2025-09-02 19:21] LABS: Vitamin B12 819.0 pg/mL (239-931)
[2025-09-02] MEDS: diazePAM INJ (*CRX) 10 MG/2 ML SYRINGE 5 MG IV PUSH (19:23)
--- NOTE | 2025-09-02 19:59 | PM.IMPN ---
Progress Note: A&P Assessment and Plan (1) AMS (altered mental status): Qualifiers: Altered mental status type: disorientation Qualified Code(s): R41.0 - Disorientation, unspecified Code(s): R41.82 - Altered mental status, unspecified Status: Acute Assessment and Plan: New altered mental status discovered at 2:40 p.m. on 08/30. Last known well at 8:00 p.m. on 08/29. Patient has past medical history significant for multiple strokes with left-sided deficits and seizure disorder. Improving with Keppra. Breakthrough seizures versus new CVA versus combination there of. Current symptoms include who continue dysarthria and word-finding difficulties. Left upper extremity weakness noted, however residual from previous stroke. Increasing suspicion for CVA with breakthrough seizure secondary to stroke. - admission for observation and telemetry - not candidate for thrombolytics or thrombectomy due to time frame and no acute LVO noted on CTA - CXR: Interstitial opacities in both lungs. Differential includes interstitial edema, interstitial pneumonia or chronic interstitial changes. - head CT and CTA head/neck showed no acute findings - neurology consulted, ED spoke with on-call neurologist to recommended MRI and EEG - brain MRI w/wo ordered - echo w/Bubble ordered - neuro checks Q4 - consider PT/OT evaluation if acute CVA noted on MRI - ST eval as the patient has dysarthria on exam - monitor daily labs, check lipid panel and A1C - up ad anatoly or fall precautions - start Atorvastatin 40 mg PO, Plavix 75 mg PO, ASA 81 mg - consider 30 day event monitoring at discharge if abnormalities noted on telemetry 08/31 -completed MRI screening form with the help of POA -pending MRI -echocardiogram shows less than 15% 09/01 -seen by cardiology, who recommended NST given severe cardiomyopathy, however this was cancelled as he was not cooperative for exam -MRI brain also to be attempted, anticipate similar issue -[facility]OLES was called on patient today as he became acutely combative- was able to be reoriented by security, but haldol prn has been added to regimen, though all attempts to reorient and use nonpharmacological means to be implemented first -Na improving 123 > 125 -neurology consulted for tomorrow 09/02 -Seen by neurology, who noted patient may behaving agitation as side effect of keppra given high dose and chronic use for seizures. Also did EEG which returned normal. Recommended add vimpat 100mg bid. MRI done and reviewed- new infarct in left hippocampus, but very small and cannot fully explain clinical findings. Clinical course complicated by 2 seizure events, tonic-clonic, lasting about 1-1.5 min each. Neurology was contacted and recommended change vimpat from po to IV, and if still having seizures despite IV dosing, to consider adding Depakote 500mg bid-tid to regimen for further seizure control. 5mg Diazepam was given after second seizure event to abort. -Thiamine was started for history of alcohol dependence, though unclear if recent alcohol use. Clinical findings currently do not suggest Wernicke encephalopathy -Neurology will follow patient 09/04. -Sodium is improved 121 to 126 today, to continue monitoring -NST was done as well today - will await cardiology final recommendations. (2) Seizure: Code(s): R56.9 - Unspecified convulsions Status: Acute Assessment and Plan: - see above - given Keppra 1500 IV, continue as Keppra 2G BID. Medication refilled on 08/21/25. -Lacosamide added IV 100mg, consider adding depakote if still having seizures -s/p seizure episodes x2 09/02, aborted with diazepam 5mg, and above recommendations for prevention - check Keppra level - seizure precautions -neurology consult tomorrow (3) History of stroke: Code(s): Z86.73 - Personal history of transient ischemic attack (TIA), and cerebral infarction without residual deficits Status: Acute Assessment and Plan: - CT Head on 08/30 showed several old infarcts moderate-sized at the left parietal and occipital lobes, small at the right occipital lobe and a couple additional smaller old lacunar infarcts in the right frontal and left parietal lobe white matter. - previous residual left sided deficits -MRI - small L hippocampal infarct (4) Pneumonia: Qualifiers: Laterality: unspecified laterality Lung location: unspecified part of lung Pneumonia type: due to unspecified organism Qualified Code(s): J18.9 - Pneumonia, unspecified organism Code(s): J18.9 - Pneumonia, unspecified organism Status: Acute Assessment and Plan: Patient initially met SIRS criteria due to heart rate and hypoxia. CXR concerning for possibility of pneumonia versus pulmonary edema. No leukocytosis. However lactic was 2.1. Checking procalcitonin. Blood cultures obtained on 08/30, follow. - started on Levaquin on 08/30. - supportive care: Mucinex, Tessalon Perles, Tylenol, DuoNebs (5) Chronic hyponatremia: Code(s): E87.1 - Hypo-osmolality and hyponatremia Status: Acute Assessment and Plan: Has history of chronic hyponatremia, during most recent admission possibly related to too much free water. Sodium levels fluctuated drastically in 2022 which is the most recent lab work available per chart review. Ranged from 127 to as high as 148. Most recently 131 on 07/22/2023. Upon admission the patient's sodium was 121. Has been as low as 116 in 2020. - check serum osmolality, urine osmolality, urine sodium, protein to creatinine ratio, urine creatinine - repeat BMP daily - neurochecks q4h - IV fluids: 1L bolus -> 125 mL/hr - regular diet -Na improving 123 > 126 (6) CHF (congestive heart failure): Qualifiers: Heart failure type: unspecified Heart failure chronicity: chronic Qualified Code(s): I50.9 - Heart failure, unspecified Code(s): I50.9 - Heart failure, unspecified Status: Acute Assessment and Plan: CXR showed interstitial opacities in both lungs, differential includes interstitial edema/interstitial pneumonia/chronic interstitial changes. - check BNP - no evidence of volume overload on exam - chart reviewed, no previous echo on file 08/31 Echocardiogram shows less than 15% Cardiology consulted- would like NST, however difficulties due to mental status noted. Diuretic not needed as he is euvolemic, GDMT with carvedilol 3.125mg bid, entresto bid, spironolactone 25mg qd started. Cardiology considers alcohol-related encephalopathy as component. (7) Atrial fibrillation: Qualifiers: Atrial fibrillation type: unspecified chronic Qualified Code(s): I48.20 - Chronic atrial fibrillation, unspecified Code(s): I48.91 - Unspecified atrial fibrillation Status: Acute Assessment and Plan: Initial EKG showed atrial far/tachycardia with RVR, rate 134. History of atrial fibrillation. HR now improved with IV fluids, currently ranging in the 80s. Cardiology consult Plan Diet: Regular GI Prophylaxis: N/a DVT Prophylaxis: SCDs IV fluids: 1L -> 125 mL/hr Lines/Tubes: Peripheral IV Code Status: Full code Subjective Date/time seen: 09/02/25 19:59 Review of Systems Review of Systems: All systems reviewed & are unremarkable except as noted in HPI and below Exam Narrative: LUE weakness. +dysarthria and word finding difficulty. Const: General: comfortable and no acute distress Other: , male, frail, chronically ill-appearing HENMT: Face/Nose/Sinus: Normal nares present Mouth: Yes dry mucous membranes Eyes: General: appearance normal, both eyes and all related structures Sclera: sclerae normal Pupils: Equal, round and reactive pupils present EOM: EOMs intact bilaterally Resp: Effort & Inspection: normal respiratory effort Auscultation: clear to auscultation bilaterally Cardio: Rate: regular rate Rhythm: regular rhythm Other: S1-S2 present without murmur, rub, ectopy GI: Other: Abdomen soft, nondistended, nontender. Normoactive bowel sounds in all quadrants. Skin: General skin exam: normal color and no rashes or lesions noted Wounds: no wounds Neuro: Cranial nerves: Yes Equal, round and reactive pupils present Other: A&O x3, poor situational recall. Generalized weakness noted, +4 in all extremities. However trace weakness noted in the left upper extremity compared to the right upper extremity, chronic per patient. +dysarthria and word-finding difficulty. No nystagmus noted, no gaze deviation, no facial palsy. No sensory deficits. Extrem: General: normal to inspection Psych: Other: Fair to poor insight and judgment at present, pleasant. No agitation noted. No restlessness. Objective Data Vital Signs Vital Signs: Vital Signs - 24 hr 09/01/25 20:00 09/01/25 20:00 09/01/25 22:00 Temperature Pulse Rate 112 H 106 H 115 H Respiratory Rate 20 Blood Pressure 114/75 Pulse Oximetry 100 Oxygen Delivery 09/01/25 23:37 09/01/25 23:49 09/02/25 00:00 Temperature Pulse Rate 102 H 100 Respiratory Rate Blood Pressure 120/92 H Pulse Oximetry Oxygen Delivery Room Air 09/02/25 02:00 09/02/25 03:12 09/02/25 04:00 Temperature 97.9 F Pulse Rate 94 91 Respiratory Rate 18 Blood Pressure 131/92 H Pulse Oximetry 98 Oxygen Delivery Room Air 09/02/25 04:00 09/02/25 05:55 09/02/25 07:47 Temperature 98.1 F Pulse Rate 95 92 87 Respiratory Rate 18 Blood Pressure 115/89 Pulse Oximetry 97 Oxygen Delivery 09/02/25 08:00 09/02/25 08:00 09/02/25 08:48 Temperature Pulse Rate 104 H 92 Respiratory Rate Blood Pressure Pulse Oximetry Oxygen Delivery Room Air 09/02/25 10:00 09/02/25 12:00 09/02/25 12:00 Temperature Pulse Rate 101 H 89 Respiratory Rate Blood Pressure Pulse Oximetry Oxygen Delivery Room Air 09/02/25 14:00 09/02/25 16:00 09/02/25 16:14 Temperature 98.5 F Pulse Rate 95 102 H 98 Respiratory Rate 20 Blood Pressure 128/94 H Pulse Oximetry 97 Oxygen Delivery 09/02/25 17:34 09/02/25 18:00 09/02/25 18:40 Temperature Pulse Rate 94 88 100 Respiratory Rate Blood Pressure 149/101 H 140/98 H Pulse Oximetry Oxygen Delivery Intake/Output Intake/Output: Intake & Output 08/30/25 08/31/25 09/01/25 09/02/25 23:59 23:59 23:59 23:59 Intake Total 337.5 1800.4 195 1030 Output Total 700 1625 855 Balance -362.5 175.4 -660 1030 Meds/Results Medications: Active Medications Generic Name Dose Route Start Last Admin Trade Name Freq PRN Reason Stop Dose Admin Acetaminophen 650 mg 08/30/25 19:05 Acetaminophen 325 Mg Tablet PO Q4H PRN Mild Pain (1-3) or Fever Albuterol/Ipratropium 3 ml 08/30/25 21:05 Ipratropium 0.5 Mg/Albuterol Sulfate 2.5 Mg (Base) Ampul.Neb 3 Ml INHALATION Q6HRT PRN Shortness Of Breath Or Wheezing Aspirin 81 mg 08/31/25 09:00 09/02/25 08:50 Aspirin 81 Mg Enteric Tablet PO 81 mg QAM NESSA Administration Atorvastatin Calcium 80 mg 09/03/25 09:00 Atorvastatin 40 Mg Tablet PO DAILY NESSA Benzonatate 100 mg 08/30/25 21:05 Benzonatate 100 Mg Capsule PO TID PRN Cough Clopidogrel Bisulfate 75 mg 08/31/25 09:00 09/02/25 08:53 Clopidogrel Bisulfate 75 Mg Tablet PO 75 mg QAM NESSA Administration Dextrose 12.5 gm 08/31/25 02:45 Dextrose 50% 25 Gm/50 Ml Syringe IV PUSH PRN PRN Hypoglycemia Protocol Diazepam 5 mg 09/02/25 19:16 Diazepam Inj (*Crx) 10 Mg/2 Ml Syringe IV PUSH Q8HR PRN seizure Glucose 15 gm 08/31/25 02:45 Glucose Oral Gel 15 Gm Of Glucse In 37.5 Gm Tube PO PRN PRN Hypoglycemia Protocol Guaifenesin 600 mg 08/31/25 09:00 09/02/25 08:53 Guaifenesin 12 Hr 600 Mg Tabcr PO 600 mg Q12HR NESSA Administration Dextrose 1,000 mls @ 100 mls/hr 08/31/25 02:45 Dextrose 5% 1,000 Ml IVPB PRN PRN Hypoglycemia Protocol Levofloxacin/Dextrose 750 mg in 150 mls @ 100 mls/hr 09/02/25 09:00 09/02/25 09:00 Levaquin 750 Mg/D5w 150 Ml IVPB 100 mls/hr Q24H NESSA Administration Lacosamide 100 mg/ Sodium 100 mls @ 200 mls/hr 09/02/25 20:00 Chloride IVPB Q12HR NESSA Lacosamide 100 mg 09/02/25 21:00 Lacosamide (*Crx) 100 Mg Tablet PO Q12HR NESSA Levetiracetam 2,000 mg 08/31/25 09:00 09/02/25 08:47 Levetiracetam 500 Mg Tablet PO 2,000 mg Q12HR NESSA Administration Metoprolol Succinate 25 mg 09/02/25 21:00 Metoprolol Succinate Ext Rel 25 Mg Tabcr PO Q12HR NESSA Morphine Sulfate 2 mg 08/30/25 19:14 Morphine Sulfate (*Crx) 4 Mg/Ml Inj IV PUSH Q2H PRN Pain Rated 7-10 Nicotine 1 patch 09/01/25 19:00 09/02/25 08:59 Nicotine (*Pbkc) 21 Mg Patch TRANSDERM 1 patch DAILY NESSA Administration Ondansetron HCl 4 mg 08/30/25 19:05 Ondansetron Inj 4 Mg/2 Ml Vial IV PUSH Q4H PRN Nausea Sacubitril/Valsartan 1 tab 08/31/25 21:00 09/02/25 08:50 Sacubitril/Valsartan 24-26 Mg Tablet PO 1 tab Q12HR NESSA Administration Spironolactone 25 mg 09/01/25 09:00 09/02/25 08:53 Spironolactone 25 Mg Tablet PO 25 mg QAM NESSA Administration Thiamine HCl 100 mg 09/02/25 10:55 09/02/25 13:54 Thiamine Hcl 100 Mg Tablet PO 100 mg QAM NESSA Administration Radiology Results: ITS Impressions Head CT 08/30/25 15:50 IMPRESSION: 1. No acute intracranial process. 2. Several old infarcts moderate-sized at the left parietal and occipital lobes, small at the right occipital lobe and a couple additional smaller old lacunar infarcts in the right frontal and left parietal lobe white matter. 3. Age-related changes including moderate diffuse volume loss and mild scattered white matter hypoattenuation consistent with chronic small vessel ischemic disease. Chest X-Ray 08/30/25 16:28 IMPRESSION: 1. Interstitial opacities in both lungs. Differential includes interstitial edema, interstitial pneumonia or chronic interstitial changes. If symptoms persist or worsen, consider a short-term follow-up study or additional imaging for further assessment. Head/Neck CTA 08/30/25 16:39 IMPRESSION: 1. Limited study. There is no gross critical stenosis, occlusion or aneurysm identified Brain MRI 09/02/25 11:50 IMPRESSION: 1. 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 2. Multiple old infarcts in the brain. 3. Moderate nonspecific cerebral white matter disease, which likely represents chronic small vessel ischemic disease. 4. No detectable contrast on the postcontrast images. Correlate with physical exam for IV infiltration. Lexiscan Stress Test 09/02/25 14:08 IMPRESSION: 1. Moderate to severe nonreversible perfusion defect consistent with infarct of the mid inferoseptal, mid inferior to lesser degree mid inferolateral segments. No reversible ischemia. 2. Global hypokinesis with moderately decreased left ventricular ejection fraction measuring 26%. Labs Labs: Laboratory Results - last 24 hr 09/02/25 09/02/25 09/02/25 03:56 07:20 13:33 WBC 10.9 H RBC 4.33 L Hgb 14.3 Hct 41.1 L MCV 94.9 MCH 33.0 MCHC 34.8 RDW 13.6 Plt Count 302 MPV 9.6 Immature Gran % (Auto) 0.6 H Neut % (Auto) 74.7 H Lymph % (Auto) 14.1 L [place] % (Auto) 10.2 H Eos % (Auto) 0.0 Baso % (Auto) 0.4 Lymph # (Auto) 1.54 [place] # (Auto) 1.1 H Eos # (Auto) 0.0 Baso # (Auto) 0.0 Abs Immat Gran (auto) 0.07 H Absolute Neuts (auto) 8.2 H Absolute Nucleated RBC 0.000 Nucleated RBC % 0.0 Sodium 126 L Potassium 3.4 Chloride 91 L Carbon Dioxide 29 Anion Gap 6 BUN 28 H D Creatinine 0.79 Estim Creat Clear Calc 74 Estimated GFR > 60 Glucose 122 H POC Capillary Glucose 78 105 Calcium 8.5 Total Bilirubin 0.7 AST 60 H ALT 27 Alkaline Phosphatase 66 Total Protein 6.3 Albumin 3.7 Vitamin B12 Vitamin D 25-Hydroxy Folate DANIELE Screen Cancelled DANIELE Titer Cancelled DANIELE Titer 2 Cancelled DANIELE Titer 3 Cancelled DANIELE Pattern Cancelled DANIELE Pattern 2 Cancelled DANIELE Pattern 3 Cancelled DANIELE Comment Cancelled 09/02/25 09/02/25 15:34 17:55 WBC RBC Hgb Hct MCV MCH MCHC RDW Plt Count MPV Immature Gran % (Auto) Neut % (Auto) Lymph % (Auto) [place] % (Auto) Eos % (Auto) Baso % (Auto) Lymph # (Auto) [place] # (Auto) Eos # (Auto) Baso # (Auto) Abs Immat Gran (auto) Absolute Neuts (auto) Absolute Nucleated RBC Nucleated RBC % Sodium Potassium Chloride Carbon Dioxide Anion Gap BUN Creatinine Estim Creat Clear Calc Estimated GFR Glucose POC Capillary Glucose 84 Calcium Total Bilirubin AST ALT Alkaline Phosphatase Total Protein Albumin Vitamin B12 819.0 Vitamin D 25-Hydroxy 43.2 Folate 10.6 DANIELE Screen DANIELE Titer DANIELE Titer 2 DANIELE Titer 3 DANIELE Pattern DANIELE Pattern 2 DANIELE Pattern 3 DANIELE Comment Hospitalist MIPS Advance Care Plan I have confirmed that the patient's Advanced Care Plan is present, code status is documented, or surrogate decision maker is listed in patient medical record.: Yes Medication Reconciliation I have utilized all available resources to obtain, update and review the patients current medications (includes all prescriptions, OTC, herbals, cannabis, and nutritional supplements).: Yes
[2025-09-03] VITALS (60 sets, daily range): BP systolic 65–154; BP diastolic 47–131; PULSE 77–124; RESP 16–20; TEMP 36.6–38.1; O2SAT 94–100; BMI 18.6
[2025-09-03] MEDS: diazePAM INJ (*CRX) 10 MG/2 ML SYRINGE 5 MG IV PUSH (02:59)
[2025-09-03 04:38] LABS: Hematocrit 40.1 % (42.0-52.0); Hemoglobin 13.7 g/dL (14.0-18.0); Immature Granulocyte Percent A 0.6 % (0-0.5); Lymphocytes Absolute Auto 1.78 K/mm3 (0.9-3.2); Mean Corpuscular HGB Conc 34.2 g/dl (32-36); Mean Corpuscular Hemoglobin 32.4 pg (26-34); Mean Corpuscular Volume 94.8 fl (80-100); Nucleated Red Blood Cells Absolute Auto 0.000 K/mm3 (0.0-0.012); Nucleated Red Blood Cells Perc 0.0 % (0.0-0.2); Platelet Count Result 307 k/mm3 (150-375); Red Blood Count 4.23 M/mm3 (4.6-6.20); White Blood Count 10.4 K/mm3 (4.5-10.0)
[2025-09-03 04:52] LABS: Alanine Aminotransferase 22 U/L (6-50); Albumin Level 3.5 g/dL (3.5-5.1); Alkaline Phosphatase 62 U/L (38-126); Anion Gap 6 mmol/L (4-12); Aspartate Amino Transferase 44 U/L (17-59); Bilirubin,Total 0.6 mg/dL (0.2-1.3); Blood Urea Nitrogen 29 mg/dL (9-20); Calcium 8.2 mg/dL (8.4-10.2); Carbon Dioxide 26 mmol/L (22-30); Chloride 93 mmol/L (98-107); Estimated CRCL calculation 75 ml/min; Estimated Glomerular Filt Rate > 60; Glucose 121 mg/dL (65-110); Potassium 3.4 mmol/L (3.4-5.0); Sodium 125 mmol/L (137-145); Total Protein 6.1 g/dL (6.3-8.2)
--- NOTE | 2025-09-03 07:20 | PC.NURSE ---
fnanie Eastman, reports low BP. Entered room. Pt lying in bed with head fixed to right side, with irregular, shallow, gasping breaths. Convulsing to right side of body. Left fist clinched. Movement of eyes with sternal rub. Does not regard to voice. 02 97% on 2L NC. Charge nurse ANGÉLICA Mathew and Dr. Toledo at bedside. IV Keppra started. LORI Nickerson given status update by food writer. 500 ml NS Bolus initiated. Dr. Pfeiffer at bedside. 2 mg Ativan IVP given. LORI Nickerson updated by Dr. Pfeiffer at bedside. Pt transferred to ICU3.
[2025-09-03] MEDS: SODIUM CHLORIDE 0.9% IV 500 ML 999 ML IV CONT (07:55)
[2025-09-03] MEDS: LORazepam INJ (*CRX) 2 MG/ML VIAL (08:03)
--- NOTE | 2025-09-03 08:05 | PM.PNCARD ---
Progress Note: A&P Assessment and Plan (1) Atrial fibrillation: Qualifiers: Atrial fibrillation type: unspecified chronic Qualified Code(s): I48.20 - Chronic atrial fibrillation, unspecified Code(s): I48.91 - Unspecified atrial fibrillation Status: Acute (2) Ischemic cardiomyopathy: Code(s): I25.5 - Ischemic cardiomyopathy Status: Acute (3) Seizure: Code(s): R56.9 - Unspecified convulsions Status: Acute (4) AMS (altered mental status): Qualifiers: Altered mental status type: unspecified Qualified Code(s): R41.82 - Altered mental status, unspecified Code(s): R41.82 - Altered mental status, unspecified Status: Acute (5) Cerebrovascular accident: Code(s): I63.9 - Cerebral infarction, unspecified Status: Acute (6) Alcohol withdrawal seizure: Code(s): F10.939 - Alcohol use, unspecified with withdrawal, unspecified; R56.9 - Unspecified convulsions Status: Acute (7) Alcohol dependence: Code(s): F10.20 - Alcohol dependence, uncomplicated Status: Resolved Plan Assessment: 1. Patient with severe cardiomyopathy ejection fraction less than 15% with multiple wall motion abnormalities noted on the echocardiogram. Previous echocardiogram in 2020 had revealed preserved systolic function in the range of 60%. Evaluate for underlying coronary artery disease. Differential diagnosis may include tachycardia induced cardiomyopathy, ischemic heart disease with previous stenting extensive anterior wall myocardial infarction or alcohol-related cardiomyopathy. Nuclear stress test on 09/02/2025 revealed ejection fraction 26% and a fixed large inferior defect. Findings are suggesting ischemic cardiomyopathy. 2. Presentation with atrial flutter with rapid ventricular response and right bundle branch block. Patient now converted to normal sinus rhythm with paroxysms of atrial flutter. A recent follow-up electrocardiogram on no 08/31/2025 reveals normal sinus rhythm with right bundle-branch block and heart rate of 89 per minute. Suggestion for inferior and anteroseptal infarct. Currently on metoprolol succinate 25 mg b.i.d. with maintenance in normal sinus rhythm. 3. History of chronic alcohol abuse head protein caloric malnutrition presents with mental status changes. Patient has severe hyponatremia with sodium as low as 121 on admission. Sodium now is 123, potassium 4.7, BUN is 14 creatinine 0.6. Blood glucose is elevated at 160. History of alcoholic cirrhosis. 4. History of hypothyroidism and seizure disorder. Seizure source likely secondary to alcohol withdrawal. Patient had another episode of seizure this morning subsequently transferred to intensive care unit required intubation for airway protection and status epilepticus. Currently intubated on ventilator and sedation. 5. History of stroke in the past. Multiple other problems including history of hypertension, orthostatic hypotension, chronic hyponatremia and failure to thrive. MRI scan of the brain on 09/02/2025 reveals acute infarct involving left hippocampus and other multiple old infarcts of the cerebellum bilaterally. Significant white matter changes noted. 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 Recommendation; 1. Chronically debilitated patient with history of previous stroke, seizure disorder, cirrhosis of liver and failure to thrive has severely reduced the ejection fractions age of 10-15% by echocardiogram. Multiple wall motion abnormalities are noted suggesting ischemic etiology. 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 Nuclear stress test completed before showed ejection fraction of 26% of with fixed inferior defect. Findings suggesting ischemic cardiomyopathy[place] 2[place] [address] on admission. Clinically patient appears to be euvolemic without leg edema, shortness of breath or orthopnea. Possibly chronically compensated systolic heart failure. -Will not start diuretic at this time since patient has no leg edema or other signs of fluid overload. 3. Currently blood pressure was low this morning at 81/62 currently improved at 154 mm mercury P heart rate is 94 per minute. Patient is hypotensive post intubation likely secondary to sedation and cardiomyopathy. Patient had been started on Levophed. Dobutamine will be added in view of his severe cardiomyopathy at 5 microgram/kg per minute. Currently ordered oral medication on hold as patient is intubated as well as being hypotensive. Hold the metoprolol succinate, Entresto and Aldactone. 4. Conservative medical management would be for an for this patient. Patient is full code. Poor prognosis due to alcohol addiction, seizure disorder, alcoholic cirrhosis of liver and chronic mental status changes. Patient may have alcohol-related encephalopathy. 5. Continue to monitor patient. Based on his ejection fraction patient is a candidate for external defibrillator or 90 days for now at the time of discharge. Overall patient does not appear to be an ideal candidate for outpatient LifeVest. Will continue to monitor his mental status and other comorbid factors. 6. Laboratory data reviewed from today. WBC count is 10.4, hemoglobin 13.7, platelets are 307,000. Sodium at 125, potassium is 3.4, BUN is 29 creatinine 0.8. Discussed with the nursing staff and the intensive care unit physician. Subjective Date/time seen: 09/03/25 08:06 Interval history: Review of HPI: Patient is a 60-year-old gentleman admitted via emergency room on 08/30/2025 with the mental status changes. Patient is known history of stroke, seizure disorder, alcohol abuse at least last 2 years. Patient apparently not feeling for the last couple of days and called his family and subsequently brought to the emergency room. No complaints of chest pain, shortness of breath, leg edema. No complaints of fever or chills or seizures. No complaints of abdominal pain nausea vomiting or diarrhea. Past medical history significant for protein calorie malnutrition, hypothyroidism, chronic hyponatremia, chronic anemia, alcohol dependence. Admitting blood pressure in the emergency room was 140/106. Her was 138 per minute. Respirations 18 per minute. O2 saturation was 88% on room air. Admitting laboratory data available this can 6.7, hemoglobin 12.4 and platelets were normal. Sodium was 121, potassium 4.7, BUN is 15, creatinine 0.73. Troponin was less than 0.012. LFTs were normal. Admitting EKG revealed atrial flutter with rapid ventricular response at 134 per minute with right bundle-branch block and left axis deviation. Significant QRS widening noted Echocardiogram performed on 08/31/2025 revealed mildly enlarged left ventricle with severe LV systolic dysfunction and reduced ejection fraction less than 15%. Multiple areas of hypokinesis noted including anterior wall anterolateral wall, apical septum apical cap and basal inferior wall. There was mildly dilated right ventricle with reduced right ventricular systolic function. No significant valvular problems noted. No pericardial effusion noted. Cardiology was consulted. Previous echocardiogram on 07/17/2021 showed normal left ventricular size and systolic function is 65-70% and grade 1 diastolic dysfunction. Subjective: Examined at the bedside. Patient is awake alert appears to be comfortable without shortness of breath or chest pain. Blood pressure is 105/72 and heart rate is 96 per minute. Lexiscan nuclear stress test on 09/02/2025 revealed moderate to severe nonreversible perfusion defect consistent with infarct in the mid inferoseptum, mid inferior and inferolateral segment. No reversible ischemia. Global hypokinesis with moderately decreased left ventricular systolic function estimated at 26% The MRI scan of the brain on 09/02/2025 revealed acute infarct involving the left hippocampus with multiple old infarcts in the brain. Patient also has moderate nonspecific cerebral white matter disease. Patient transferred to intensive care unit this morning after seizure disorder. Required intubation for airway protection due to persistent seizure activity. Subsequently blood pressure drop with sedation and patient was started on Levophed by ICU staff. Review of Systems Review of Systems: More awake and alert. Twelve point review of system was completed. Constitutional negative for weight loss, fever or chills. Head and neck review of systems negative. Pulmonary system negative for shortness of breath, cough hemoptysis. Cardiovascular system negative for chest pain, shortness of breath or heart palpitations. Periods of SVT/flutter with rapid ventricle response noted on the monitor. Gastrointestinal negative for abdominal pain, nausea vomiting or diarrhea. Neurovascular intact. Patient mental status fluctuates suspect chronic encephalopathy from chronic alcohol abuse. Exam Narrative: Patient was examined at the intensive care unit. Patient is intubated and sedated. Heart rate shows normal sinus rhythm. Blood pressure is below 100 systolic at the present time. Head and neck examination is unremarkable. Sclerae is nonicteric. The patient is intubated and on ventilator. Neck is supple. There is no JVD or carotid bruit. Lungs are clear to auscultation infarction. Heart sounds reveal normal S1-S2. No S3 is present there is soft systolic murmur noted at the apex. Abdomen is soft and nontender there is no ascites or hepatosplenomegaly. Bowel sounds are present. Extremities revealed no pedal edema. Neurological examination cannot be assessed. Psych examination cannot be assessed. Objective Data Vital Signs Vital Signs: Vital Signs - 24 hr 09/02/25 08:48 09/02/25 10:00 09/02/25 12:00 Temperature Pulse Rate 92 101 H Respiratory Rate Blood Pressure Pulse Oximetry Oxygen Delivery Room Air Oxygen Flow Rate 09/02/25 12:00 09/02/25 14:00 09/02/25 16:00 Temperature Pulse Rate 89 95 102 H Respiratory Rate Blood Pressure Pulse Oximetry Oxygen Delivery Oxygen Flow Rate 09/02/25 16:14 09/02/25 17:34 09/02/25 18:00 Temperature 36.9 C Pulse Rate 98 94 88 Respiratory Rate 20 Blood Pressure 128/94 H 149/101 H Pulse Oximetry 97 Oxygen Delivery Oxygen Flow Rate 09/02/25 18:40 09/02/25 19:55 09/02/25 19:58 Temperature 36.9 C Pulse Rate 100 113 H 108 H Respiratory Rate 28 H 28 H Blood Pressure 140/98 H 151/102 H Pulse Oximetry 93 93 Oxygen Delivery Room Air Oxygen Flow Rate 09/02/25 20:00 09/02/25 20:00 09/02/25 20:00 Temperature Pulse Rate 96 108 H 108 H Respiratory Rate 28 H Blood Pressure 153/102 H Pulse Oximetry 98 Oxygen Delivery Nasal Cannula Oxygen Flow Rate 2 09/02/25 22:00 09/03/25 00:00 09/03/25 00:00 Temperature 36.6 C Pulse Rate 85 91 92 Respiratory Rate 18 Blood Pressure 100/73 Pulse Oximetry 97 Oxygen Delivery Oxygen Flow Rate 09/03/25 00:18 09/03/25 01:29 09/03/25 02:59 Temperature 36.9 C Pulse Rate 91 90 96 Respiratory Rate 18 16 Blood Pressure 105/72 Pulse Oximetry 97 97 Oxygen Delivery Nasal Cannula Oxygen Flow Rate 2 09/03/25 03:10 09/03/25 04:00 09/03/25 06:00 Temperature Pulse Rate 96 97 97 Respiratory Rate 16 Blood Pressure Pulse Oximetry 97 Oxygen Delivery Nasal Cannula Oxygen Flow Rate 2 Intake/Output Intake/Output: Intake & Output 08/31/25 09/01/25 09/02/25 09/03/25 23:59 23:59 23:59 23:59 Intake Total 1800.4 195 1400 0 Output Total 1625 855 0 0 Balance 175.4 -660 1400 0 Meds/Results Medications: Active Medications Generic Name Dose Route Start Last Admin Trade Name Anatoliyq PRN Reason Stop Dose Admin Acetaminophen 650 mg 08/30/25 19:05 Acetaminophen 325 Mg Tablet PO On Hold: 09/02/25 20:19 Q4H PRN Comment: PT NOT ABLE TO Mild Pain (1-3) or Fever SWALLOW PILLS DUE TO SEIZURES, HOLD UNTIL PT ABLE TO DO PO Albuterol/Ipratropium 3 ml 08/30/25 21:05 Ipratropium 0.5 Mg/Albuterol Sulfate 2.5 Mg (Base) Ampul.Neb 3 Ml INHALATION Q6HRT PRN Shortness Of Breath Or Wheezing Aspirin 81 mg 08/31/25 09:00 09/02/25 08:50 Aspirin 81 Mg Enteric Tablet PO 81 mg On Hold: 09/02/25 20:19 QAM NESSA Administration Comment: PT NOT ABLE TO SWALLOW PILLS DUE TO SEIZURES, HOLD UNTIL PT ABLE TO DO PO Atorvastatin Calcium 80 mg 09/03/25 09:00 Atorvastatin 40 Mg Tablet PO DAILY NESSA Benzonatate 100 mg 08/30/25 21:05 Benzonatate 100 Mg Capsule PO On Hold: 09/02/25 20:19 TID PRN Comment: PT NOT ABLE TO Cough SWALLOW PILLS DUE TO SEIZURES, HOLD UNTIL PT ABLE TO DO PO Clopidogrel Bisulfate 75 mg 08/31/25 09:00 09/02/25 08:53 Clopidogrel Bisulfate 75 Mg Tablet PO 75 mg On Hold: 09/02/25 20:19 QAM NESSA Administration Comment: PT NOT ABLE TO SWALLOW PILLS DUE TO SEIZURES, HOLD UNTIL PT ABLE TO DO PO Dextrose 12.5 gm 08/31/25 02:45 Dextrose 50% 25 Gm/50 Ml Syringe IV PUSH PRN PRN Hypoglycemia Protocol Diazepam 5 mg 09/02/25 19:16 09/03/25 02:59 Diazepam Inj (*Crx) 10 Mg/2 Ml Syringe IV PUSH 5 mg Q8HR PRN Administration seizure Glucose 15 gm 08/31/25 02:45 Glucose Oral Gel 15 Gm Of Glucse In 37.5 Gm Tube PO PRN PRN Hypoglycemia Protocol Guaifenesin 600 mg 08/31/25 09:00 09/02/25 08:53 Guaifenesin 12 Hr 600 Mg Tabcr PO 600 mg On Hold: 09/02/25 20:19 Q12HR NESSA Administration Comment: PT NOT ABLE TO SWALLOW PILLS DUE TO SEIZURES, HOLD UNTIL PT ABLE TO DO PO Dextrose 1,000 mls @ 100 mls/hr 08/31/25 02:45 Dextrose 5% 1,000 Ml IVPB PRN PRN Hypoglycemia Protocol Levofloxacin/Dextrose 750 mg in 150 mls @ 100 mls/hr 09/02/25 09:00 09/02/25 19:15 Levaquin 750 Mg/D5w 150 Ml IVPB Infused Q24H NESSA Infusion Lacosamide 100 mg/ Sodium 100 mls @ 200 mls/hr 09/02/25 20:00 09/02/25 20:27 Chloride IVPB Infused Q12HR NESSA Infusion Levetiracetam 2,000 mg/ Sodium 120 mls @ 480 mls/hr 09/02/25 21:00 09/03/25 07:52 Chloride IVPB 480 mls/hr Q12HR NESSA Administration Sodium Chloride 500 mls @ 999 mls/hr 09/03/25 07:55 Normal Saline Iv IV CONT 09/03/25 08:25 .Q31M ONE Lacosamide 100 mg 09/02/25 21:00 Lacosamide (*Crx) 100 Mg Tablet PO On Hold: 09/02/25 21:00 Q12HR NESSA Comment: CHANGED TO IV Levetiracetam 2,000 mg 08/31/25 09:00 09/02/25 08:47 Levetiracetam 500 Mg Tablet PO 2,000 mg On Hold: 09/02/25 20:16 Q12HR NESSA Administration Comment: CHANGED TO IV Metoprolol Succinate 25 mg 09/02/25 21:00 Metoprolol Succinate Ext Rel 25 Mg Tabcr PO On Hold: 09/02/25 21:00 Q12HR NESSA Comment: PT NOT ABLE TO SWALLOW PILLS DUE TO SEIZURES, HOLD UNTIL PT ABLE TO DO PO Morphine Sulfate 2 mg 08/30/25 19:14 Morphine Sulfate (*Crx) 4 Mg/Ml Inj IV PUSH Q2H PRN Pain Rated 7-10 Nicotine 1 patch 09/01/25 19:00 09/02/25 08:59 Nicotine (*Pbkc) 21 Mg Patch TRANSDERM 1 patch DAILY NESSA Administration Ondansetron HCl 4 mg 08/30/25 19:05 Ondansetron Inj 4 Mg/2 Ml Vial IV PUSH Q4H PRN Nausea Sacubitril/Valsartan 1 tab 08/31/25 21:00 09/02/25 08:50 Sacubitril/Valsartan 24-26 Mg Tablet PO 1 tab On Hold: 09/02/25 20:19 Q12HR NESSA Administration Comment: PT NOT ABLE TO SWALLOW PILLS DUE TO SEIZURES, HOLD UNTIL PT ABLE TO DO PO Spironolactone 25 mg 09/01/25 09:00 09/02/25 08:53 Spironolactone 25 Mg Tablet PO 25 mg On Hold: 09/02/25 20:19 QAM NESSA Administration Comment: PT NOT ABLE TO SWALLOW PILLS DUE TO SEIZURES, HOLD UNTIL PT ABLE TO DO PO Thiamine HCl 100 mg 09/02/25 10:55 09/02/25 13:54 Thiamine Hcl 100 Mg Tablet PO 100 mg On Hold: 09/02/25 20:19 QAM NESSA Administration Comment: PT NOT ABLE TO SWALLOW PILLS DUE TO SEIZURES, HOLD UNTIL PT ABLE TO DO PO Radiology Results: ITS Impressions Head CT 08/30/25 15:50 IMPRESSION: 1. No acute intracranial process. 2. Several old infarcts moderate-sized at the left parietal and occipital lobes, small at the right occipital lobe and a couple additional smaller old lacunar infarcts in the right frontal and left parietal lobe white matter. 3. Age-related changes including moderate diffuse volume loss and mild scattered white matter hypoattenuation consistent with chronic small vessel ischemic disease. Chest X-Ray 08/30/25 16:28 IMPRESSION: 1. Interstitial opacities in both lungs. Differential includes interstitial edema, interstitial pneumonia or chronic interstitial changes. If symptoms persist or worsen, consider a short-term follow-up study or additional imaging for further assessment. Head/Neck CTA 08/30/25 16:39 IMPRESSION: 1. Limited study. There is no gross critical stenosis, occlusion or aneurysm identified Brain MRI 09/02/25 11:50 IMPRESSION: 1. 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 2. Multiple old infarcts in the brain. 3. Moderate nonspecific cerebral white matter disease, which likely represents chronic small vessel ischemic disease. 4. No detectable contrast on the postcontrast images. Correlate with physical exam for IV infiltration. Lexiscan Stress Test 09/02/25 14:08 IMPRESSION: 1. Moderate to severe nonreversible perfusion defect consistent with infarct of the mid inferoseptal, mid inferior to lesser degree mid inferolateral segments. No reversible ischemia. 2. Global hypokinesis with moderately decreased left ventricular ejection fraction measuring 26%. Labs Labs: Laboratory Results - last 24 hr 08/30/25 09/02/25 09/02/25 15:58 07:20 13:33 WBC RBC Hgb Hct MCV MCH MCHC RDW Plt Count MPV Immature Gran % (Auto) Neut % (Auto) Lymph % (Auto) [place] % (Auto) Eos % (Auto) Baso % (Auto) Lymph # (Auto) [place] # (Auto) Eos # (Auto) Baso # (Auto) Abs Immat Gran (auto) Absolute Neuts (auto) Absolute Nucleated RBC Nucleated RBC % Sodium Potassium Chloride Carbon Dioxide Anion Gap BUN Creatinine Estim Creat Clear Calc Estimated GFR Glucose POC Capillary Glucose 78 105 Calcium Total Bilirubin AST ALT Alkaline Phosphatase Total Protein Albumin Vitamin B12 Vitamin D 25-Hydroxy Folate Levetiracetam 49.2 H 09/02/25 09/02/25 09/02/25 15:34 17:55 20:24 WBC RBC Hgb Hct MCV MCH MCHC RDW Plt Count MPV Immature Gran % (Auto) Neut % (Auto) Lymph % (Auto) [place] % (Auto) Eos % (Auto) Baso % (Auto) Lymph # (Auto) [place] # (Auto) Eos # (Auto) Baso # (Auto) Abs Immat Gran (auto) Absolute Neuts (auto) Absolute Nucleated RBC Nucleated RBC % Sodium Potassium Chloride Carbon Dioxide Anion Gap BUN Creatinine Estim Creat Clear Calc Estimated GFR Glucose POC Capillary Glucose 84 157 H Calcium Total Bilirubin AST ALT Alkaline Phosphatase Total Protein Albumin Vitamin B12 819.0 Vitamin D 25-Hydroxy 43.2 Folate 10.6 Levetiracetam 09/03/25 09/03/25 09/03/25 04:09 04:10 07:33 WBC 10.4 H RBC 4.23 L Hgb 13.7 L Hct 40.1 L MCV 94.8 MCH 32.4 MCHC 34.2 RDW 13.9 Plt Count 307 MPV 9.2 Immature Gran % (Auto) 0.6 H Neut % (Auto) 70.5 Lymph % (Auto) 17.1 L [place] % (Auto) 11.5 H Eos % (Auto) 0.0 Baso % (Auto) 0.3 Lymph # (Auto) 1.78 R[place]con # (Auto) 1.2 H Eos # (Auto) 0.0 Baso # (Auto) 0.0 Abs Immat Gran (auto) 0.06 H Absolute Neuts (auto) 7.3 H Absolute Nucleated RBC 0.000 Nucleated RBC % 0.0 Sodium 125 L Potassium 3.4 Chloride 93 L Carbon Dioxide 26 Anion Gap 6 BUN 29 H Creatinine 0.81 Estim Creat Clear Calc 75 Estimated GFR > 60 Glucose 121 H POC Capillary Glucose 125 H Calcium 8.2 L Total Bilirubin 0.6 AST 44 ALT 22 Alkaline Phosphatase 62 Total Protein 6.1 L Albumin 3.5 Vitamin B12 Vitamin D 25-Hydroxy Folate Levetiracetam
--- NOTE | 2025-09-03 08:08 | PC.NURSE ---
This patient, Simon Barraza, was transferred to ICU-3 on 09/03/25 at 0808. Personal belongings sent with patient. Report given to ANGÉLICA Chavira. Appropriate documentation sent with patient.
[2025-09-03] MEDS: ETOMIDATE 20 MG/10 ML AMPUL IV PUSH (08:19)
[2025-09-03] MEDS: ROCURONIUM BROMIDE 50 MG/5 ML VIAL IV PUSH (08:20)
[2025-09-03] MEDS: MIDAZOLAM HCL (*CRX) 2 MG/2 ML VIAL 4 MG IV PUSH (08:25)
[2025-09-03] MEDS: MIDAZOLAM 100MG/NS 100ML(*CRX) 100 MG/100 ML BAG IV CONT (08:30)
[2025-09-03] MEDS: FENTANYL 2,500MCG/NS250ML(*CRX 2,500 MCG/250 ML BAG IV CONT (08:30)
[2025-09-03] MEDS: PHENYLEPHRINE 1,000 MCG/10 ML SYRINGE 200 MCG IV PUSH (08:41)
[2025-09-03] MEDS: PHENYLEPHRINE 1,000 MCG/10 ML SYRINGE 300 MCG IV PUSH (08:46)
--- NOTE | 2025-09-03 08:50 | PCSTNOTE ---
09/03: Speech Therapy held treatment transferred to ICU this am.
[2025-09-03] MEDS: LIDOCAINE 1% PF INJ 5 ML VIAL INFILTRATE (08:55)
--- NOTE | 2025-09-03 09:00 | WPDCNINT ---
Assessment and Plan Assessment and plan (1) Acute respiratory failure: Code(s): J96.00 - Acute respiratory failure, unspecified whether with hypoxia or hypercapnia Status: Acute Assessment and Plan: Acute respiratory failure likely related to seizure activity, unable to protect airway, agonal breathing, hypotension -09/03: Patient was intubated in the ICU -continue CMV mode of ventilation, peep of 5, currently on 60% FiO2 -ABGs and chest x-ray reviewed -continue bronchodilators -sedated with Versed and fentanyl infusion, maintain RASS a -2 for now -daily sedation vacation, SBT will depend upon patient's neurological status (2) Shock: Code(s): R57.9 - Shock, unspecified Status: Acute Assessment and Plan: Patient with altered mental status, hypotension, shock. -given new ischemic cardiomyopathy along with ischemia as noticed on the echocardiogram and Lexiscan with multiple wall motion abnormalities -likely cardiogenic versus septic -since patient had new seizures post acute stroke with history of seizures and being on Keppra and Vimpat which are managed by Neurology. -will star vancomycin, ceftriaxone -discontinue levofloxacin as it can decrease seizure threshold -patient on Diego-Synephrine and Levophed, maintain systolic blood pressures > 80 mmHg per rn orthopaedics -check lactic acid level -started on dobutamine for ionotropic support after discussing with Cardiology -cardiology does not plan to do any intervention 09/02: Lexiscan stress test did not show any ST T wave changes. Moderate to severe nonreversible perfusion defect consistent with infarct of the mid inferoseptal, mid inferior to lesser degree main inferior lateral segments. No reversible ischemia. 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 09/02: EEG showed essential normal EEG obtained during awake and drowsy states. Frequent blinking artifacts were noted throughout the record adding. No definite focal or paroxysmal epileptiform abnormalities (4) AMS (altered mental status): Qualifiers: Altered mental status type: disorientation Qualified Code(s): R41.0 - Disorientation, unspecified Code(s): R41.82 - Altered mental status, unspecified Status: Acute Assessment and Plan: Acute mental status likely related to above (5) Acute stroke due to ischemia: Code(s): I63.9 - Cerebral infarction, unspecified Status: Acute Assessment and Plan: Acute stroke as mentioned above, Neurology following the patient -patient also has a history of old infarcts as seen on CT brain and CT angio the were done on admission -neurology following 08/30/2025: CT angio head and neck: 1. Limited study. There is no gross critical stenosis, occlusion or aneurysm identified 08/30/2025 CT scan of the brain 1. No acute intracranial process. 2. Several old infarcts moderate-sized at the left parietal and occipital lobes, small at the right occipital lobe and a couple additional smaller old lacunar infarcts in the right frontal and left parietal lobe white matter. 3. Age-related changes including moderate diffuse volume loss and mild scattered white matter hypoattenuation consistent with chronic small vessel ischemic disease. (6) Ischemic cardiomyopathy: Code(s): I25.5 - Ischemic cardiomyopathy Status: Acute Assessment and Plan: Patient with ischemic cardiomyopathy -cardiology following the patient -will hold hold heart failure medications given patient's blood pressures are low, patient in shock -discussed with cardiology, Lexiscan stress test EF of 26% is more accurate than the echocardiogram (<15%) which is a more of an estimate. 09/02: Lexiscan stress test did not show any ST T wave changes. Moderate to severe nonreversible perfusion defect consistent with infarct of the mid inferoseptal, mid inferior to lesser degree main inferior lateral segments. No reversible ischemia. Global hypokinesis moderately decreased left ventricular ejection fraction measuring 26% -08/31: Echocardiogram showed an EF of <15%, severely reduced systolic function. Left ventricular diastolic function is abnormal. Apical inferior wall, mid inferior wall, basal inferior septal, mid inferior septal, basal anteroseptal, mid anteroseptal and mid inferior lateral wall akinetic. The anterior wall, anterolateral wall, apical septum, apical cap, and basal inferior wall are hypokinetic. RV systolic function is reduced (7) Atrial fibrillation: Qualifiers: Atrial fibrillation type: unspecified chronic Qualified Code(s): I48.20 - Chronic atrial fibrillation, unspecified Code(s): I48.91 - Unspecified atrial fibrillation Status: Acute Assessment and Plan: History of atrial fibrillation, will continue aspirin -currently in sinus rhythm, tachycardic (8) Hypothyroidism: Code(s): E03.9 - Hypothyroidism, unspecified Status: Acute Assessment and Plan: Patient has a history of hypothyroidism, currently not on any levothyroxine -will obtained TSH, along with T3 and T4 levels -restart home levothyroxine (9) Protein calorie malnutrition: Code(s): E46 - Unspecified protein-calorie malnutrition Status: Acute Assessment and Plan: Will start trickle tube feeds given patient has severe protein calorie malnutrition as evident with his BMI of 18.6 -phosphorus levels are normal -risk off agree feeding syndrome (10) Hyponatremia: Code(s): E87.1 - Hypo-osmolality and hyponatremia Status: Acute Assessment and Plan: Hyponatremia could be related to congestive heart failure, hypervolemic hyponatremia -history of seizures -will have Nephrology evaluate the patient Plan DVT prophylaxis: Obtaining CT scan of the brain, if it is negative will start prophylactic Lovenox on 09/04/2025 Stress ulcer prophylaxis: Protonix Nutrition: Will start trickle tube feeds at 10 mL/hour Code Status: Full code Critical Care Time Spent: 81 minutes Discussed with patient's sister, Bere, who is the POA, prior to intubation and explained to her the rationale that patient is having seizures, altered mental status, and difficulty breathing as he was having agonal breaths. She was agreeable for intubation and requested that we keep him a full code. I did explain to her briefly regarding his cardiomyopathy and also new stroke Due to a high probability of clinically significant, life threatening deterioration, the patient required my highest level of preparedness to intervene emergently and I personally spent this critical care time directly and personally managing the patient. This critical care time included obtaining a history; examining the patient; pulse oximetry; ordering and review of studies; arranging urgent treatment with development of a management plan; evaluation of patient's response to treatment; frequent reassessment; and discussions with other providers. It was exclusive of separately billable procedures and treating other patients and teaching time. Please see Assessment and Plan section and the rest of the note for further information on patient assessment and treatment This dictation may have been done utilizing a voice recognition system. Attempts have been made to correct errors. However, there may be uncorrected grammatical, spelling, and recognitions errors present. 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 He arrived via EMS and was not responsive to pain, had facial twitching bilaterally along with twitching of the extremities. The appeared to be seizures. CT CT brain without contrast did not show any acute intracranial process. Center old infarcts moderate side and the left parietal and occipital lobes. Small infarcts at the a right occipital lobe and a couple additional small old lacunar infarcts in the right frontal and left parietal lobe white matter. Age related changes including moderate diffusion volume loss consistent with chronic small-vessel ischemic disease. Head and neck CTA a will limited study, there is no gross critical stenosis, occlusion or aneurysm identified. 09/02: Lexiscan stress test did not show any ST T wave changes. Moderate to severe nonreversible perfusion defect consistent with infarct of the mid inferoseptal, mid inferior to lesser degree main inferior lateral segments. No reversible ischemia. Global hypokinesis moderately decreased left ventricular ejection fraction measuring 26% 09/02: Brain MRI: Showed acute infarct in the left hippocampus, multiple old infarcts in the brain, moderate nonspecific cerebral white matter disease which likely represents chronic small vessel ischemic disease. 09/02: EEG showed essential normal EEG obtained during awake and drowsy states. Frequent blinking artifacts were noted throughout the record adding. No definite focal or paroxysmal epileptiform abnormalities 08/31: Echocardiogram showed an EF of <15%, severely reduced systolic function. Left ventricular diastolic function is abnormal. Apical inferior wall, mid inferior wall, basal inferior septal, mid inferior septal, basal anteroseptal, mid anteroseptal and mid inferior lateral wall akinetic. The anterior wall, anterolateral wall, apical septum, apical cap, and basal inferior wall are hypokinetic. RV systolic function is reduced 09/03/2025: I was called to see patient in room 231, patient was having twitching of his head, upper extremities and torso, with right-sided head and gaze preference. Patient was also hypotensive with systolics in the 80s. I gave patient Ativan 2 mg IV x1, transferred patient in the ICU. He was also having some agonal breathing along with low blood pressures. 500 mL IV fluid bolus is being infused along with his daily dose of Keppra. I decided to intubate the patient for airway protection, altered mental status, seizures, PICC line was inserted. Patient also started on Diego-Synephrine infusion. Review of Systems Review of Systems: ROS unobtainable: Yes unobtainable due to endotracheal tube, unobtainable due to medical condition and unobtainable due to mental status PMFSH Past Medical History Medical History (Updated 09/03/25 @ 11:45 by Taye Pfeiffer MD) Seizure disorder Cerebrovascular disease Alcoholic cirrhosis of liver COPD (chronic obstructive pulmonary disease) HLD (hyperlipidemia) Atrial fibrillation Colon cancer screening Erosive gastritis Aphasia Encephalopathy Protein calorie malnutrition Gastroesophageal reflux disease Hypothyroidism Chronic hyponatremia Chronic anemia Cerebrovascular accident With left-sided residual weakness. Congestive heart failure Echocardiogram on 07/17/2021 showed normal LV chamber dimension and function with an estimated EF of 65 to 70% and grade 1 diastolic dysfunction with mild pulmonary hypertension estimated pulmonary arterial systolic pressure of 37 mmHg. COVID (08/2021) DVT prophylaxis Alcohol dependence last drink in 2022 Adult failure to thrive Orthostatic hypotension Tobacco dependence Hypertension Surgical History Surgical History History of excision of testicular mass With benign histology. Family History Family History Father Chronic obstructive pulmonary disease Congestive heart failure Hypertension Mother Abdominal aortic aneurysm rupture Daughter Type 1 diabetes mellitus Social History Social History Social History: The patient lives with his brother The patient has 3 children. And is disabled. The patient states that he likes to drink whiskey and does not like to drink beer. The patient is single and unemployed Surrogate decision maker: Bere Gagnon, sister. Code status: Full code. Smoking packs per day: 1 Smoking cigarettes per day: 20.0 Years smoked: 25 Smoking pack-years: 25.00 Smoking status: Current every day smoker Tobacco type: cigarettes Additional smoking assessment comments: patient on nicotine patch Alcohol intake: former Alcohol use details: None Substance use: never Substance use type: does not use Other substance usage details: 200ml whiskey/day Do You Feel Safe in your Home?: Yes Lack of Transportation: No Lack of Food: Never True Current Housing: I Have Housing Concerned About Future Housing: No Difficulty Paying Gas/Electric Bills: No Difficulty Paying for Meds: No Currently Unemployed: No Education: High School Diploma/GED Difficulty w/ Childcare or Family Care: No Additional living arrangements comments: Resident at [facility]. Additional occupation/education comments: Unemployed. Spiritual care concerns: No Meds Home Medications and Allergies Home Medications ?Medication ?Instructions ?Recorded ?Confirmed ?Type lisinopril 20 mg tablet 20 mg feeding tube DAILY 04/10/23 08/31/25 History hydrocodone 7.5 mg-acetaminophen 1 tablet PO Q12H PRN pain 08/30/25 08/31/25 History 325 mg tablet levetiracetam 1,000 mg tablet 2,000 mg PO Q12H 08/30/25 08/30/25 History duloxetine 30 mg capsule,delayed 60 mg PO DAILY 08/31/25 08/31/25 History release lacosamide 200 mg tablet 200 mg PO Q12H 08/31/25 08/31/25 History levothyroxine 25 mcg tablet 25 mcg PO DAILY 08/31/25 08/31/25 History Allergies Allergy/AdvReac Type Severity Reaction Status Date / Time amoxicillin Allergy Rash Verified 08/30/25 16:58 gadobenic acid (From AdvReac Difficulty Verified 08/30/25 16:58 contrast - MRI) Breathing iohexol (From contrast - CT, AdvReac Difficulty Verified 08/30/25 16:58 X-RAY) Breathing Vital Signs Vital Signs - 24 hr 09/02/25 10:00 09/02/25 12:00 09/02/25 12:00 Temperature Pulse Rate 101 H 89 Respiratory Rate Blood Pressure Pulse Oximetry Oxygen Delivery Room Air Oxygen Flow Rate Fraction of Inspired Oxygen 09/02/25 14:00 09/02/25 16:00 09/02/25 16:14 Temperature 98.5 F Pulse Rate 95 102 H 98 Respiratory Rate 20 Blood Pressure 128/94 H Pulse Oximetry 97 Oxygen Delivery Oxygen Flow Rate Fraction of Inspired Oxygen 09/02/25 17:34 09/02/25 18:00 09/02/25 18:40 Temperature Pulse Rate 94 88 100 Respiratory Rate Blood Pressure 149/101 H 140/98 H Pulse Oximetry Oxygen Delivery Oxygen Flow Rate Fraction of Inspired Oxygen 09/02/25 19:55 09/02/25 19:58 09/02/25 20:00 Temperature 98.4 F Pulse Rate 113 H 108 H 96 Respiratory Rate 28 H 28 H Blood Pressure 151/102 H 153/102 H Pulse Oximetry 93 93 Oxygen Delivery Room Air Oxygen Flow Rate Fraction of Inspired Oxygen 09/02/25 20:00 09/02/25 20:00 09/02/25 22:00 Temperature Pulse Rate 108 H 108 H 85 Respiratory Rate 28 H Blood Pressure Pulse Oximetry 98 Oxygen Delivery Nasal Cannula Oxygen Flow Rate 2 Fraction of Inspired Oxygen 09/03/25 00:00 09/03/25 00:00 09/03/25 00:18 Temperature 98 F Pulse Rate 91 92 91 Respiratory Rate 18 18 Blood Pressure 100/73 Pulse Oximetry 97 97 Oxygen Delivery Nasal Cannula Oxygen Flow Rate 2 Fraction of Inspired Oxygen 09/03/25 01:29 09/03/25 02:59 09/03/25 03:10 Temperature 98.5 F Pulse Rate 90 96 96 Respiratory Rate 16 16 Blood Pressure 105/72 Pulse Oximetry 97 97 Oxygen Delivery Nasal Cannula Oxygen Flow Rate 2 Fraction of Inspired Oxygen 09/03/25 04:00 09/03/25 06:00 09/03/25 08:00 Temperature 98.1 F Pulse Rate 97 97 94 Respiratory Rate 20 Blood Pressure 81/62 L Pulse Oximetry 100 Oxygen Delivery Oxygen Flow Rate Fraction of Inspired Oxygen 09/03/25 08:13 09/03/25 08:43 Temperature Pulse Rate 105 H Respiratory Rate Blood Pressure 154/131 H Pulse Oximetry 99 Oxygen Delivery Mechanical Ventilation Oxygen Flow Rate Fraction of Inspired Oxygen 100 Exam Narrative: General: Currently intubated, sedated, no acute distress HEENT:? Pupils equal and reactive, sclerae is clear, ETT in place Neck:? supple Respiratory:? Coarse breath sounds, no wheezing, adequate air entry Cardiac:? S1 S2 normal, regular rate and rhythm Abdomen:? Soft, nontender, nondistended, hypoactive bowel sound Extremities:? Lower extremity deformities noted, trace edema, palpable pedal pulse Neuro:? Intubated, sedated Skin:? Skin discolorations noted which looked chronic Psych:? Unable to assess at this time Results Labs 09/03/25 04:10 09/03/25 04:09 Labs: Short CBC 09/03/25 Range/Units 04:10 WBC 10.4 H (4.5-10.0) K/mm3 Hgb 13.7 L (14.0-18.0) g/dL Hct 40.1 L (42.0-52.0) % Plt Count 307 (150-375) k/mm3 BMP 09/03/25 04:09 Sodium 125 L Potassium 3.4 Chloride 93 L Carbon Dioxide 26 BUN 29 H Creatinine 0.81 Glucose 121 H Calcium 8.2 L Liver Function 09/03/25 Range/Units 04:09 Total Bilirubin 0.6 (0.2-1.3) mg/dL AST 44 (17-59) U/L ALT 22 (6-50) U/L Alkaline Phosphatase 62 (38-126) U/L Albumin 3.5 (3.5-5.1) g/dL Quality VTE Prophylaxis VTE prophylaxis: mechanical ordered Hospitalist MIPS Advance Care Plan I have confirmed that the patient's Advanced Care Plan is present, code status is documented, or surrogate decision maker is listed in patient medical record.: Yes Medication Reconciliation I have utilized all available resources to obtain, update and review the patients current medications (includes all prescriptions, OTC, herbals, cannabis, and nutritional supplements).: Yes
--- NOTE | 2025-09-03 09:11 | WPDPROCEDUR ---
Procedures Intubation Intubation Date: 09/03/25 Intubation Time: 08:25 Consent: I discussed with patient's sister Bere and explained to her that patient was having seizures in the intermediate Unit, has some altered mental status, respiratory distress due to seizures, possible aspiration. Bere who is the [id number] comprehended and consented to intubation and also requested that patient be a full code at this time A pre-procedural Time-Out was completed immediately before starting the procedure and confirmed: Patient Identification, Site, Procedure, Patient Position and the Availability of Requisite Equipment: Yes Sedative: etomidate Paralytic: rocuronium Laryngoscope: fiber optic video scope Assist device used: fiber optic device ET tube size: 7.5 Tube secured depth (cm): 25 Tube secured location: lips Tube placement confirmation: visualized tube passing through cords, equal breath sounds bilaterally, no breath sounds over epigastrium and confirmation by capnometry Patient tolerated procedure: well and no complications Intubation complications: none
[2025-09-03] MEDS: PHENYLEPHRINE HCL INJ 50 MG in SODIUM CHLORIDE 0.9% IV 245 ML 12 ML IV CONT (09:23)
[2025-09-03 09:38] LABS: Alveolar/Arterial O2 Gradient 435.1 mmHg; Carboxyhemoglobin 1.3 % THb (0-2.0); Fractional Inspired Oxygen 90 %; HCO3 ABG 24.4 mEq/l (22.0-26.0); Methemoglobin ABG 0.3 %THb (0-1.5); Oxygen Content ABG 19.6 %vol (16.0-22.0); Oxygen Saturation ABG 99.0 % (95.0-100.0); PCO2 ABG 43.0 mmHg (35.0-45.0); PO2 ABG 162.5 mmHg (80.0-100.0); PO2 FiO2 Ratio Arterial Blood 1.81 %; Reduced Hemoglobin 0.4 %THb (0-5.0)
[2025-09-03] MEDS: DOBUTamine 250 MG/D5W 250 ML 250 MG/250 ML BAG 18.66 MG IV CONT ×2 (10:20→21:45)
[2025-09-03] MEDS: MINERAL OIL/WHITE PETROLATUM OINTMENT 1 APPLIC EACH EYE ×2 (10:24→20:21)
--- NOTE | 2025-09-03 11:14 | PCNFU ---
Nutrition Follow-Up Complete: Severe Protein Calorie Malnutrition as related to inadequate protein energy intake in setting of acute disease as evidenced by < 50% estimated energy needs for > 5 days; moderate muscle wasting (temporalis) and moderate subcutaneous fat loss (orbital fat pads). Goal: Meet estimated nutritional needs. Pt current nutrition is NPO. Nutrition recommendation: Vital AF 1.2 at 10 ml/hr. Last recorded weight is 62.2 kg, stable Bowel Motility:Last reported BM 08/31 Labs Reviewed: Glu 121, Na 125, Hct 40.1, Hgb 13.7 Meds Noted:Versed, Fentanyl Skin: WNL Additional Notes: Patient intubated today. PICC placed. Plans for tube feedings start today. Recommend Vital AF 1.2 at 10 ml/hr. Plans for trickle feeds today. Would recommend goal rate at 70 ml/hr. Total Nutrition: 1848 kcal/115 gm protein/1249 ml water. Monitor intake, wt, labs. Follow up every Saturday and Saturday.
[2025-09-03] MEDS: levoFLOXacin 750 MG/D5W 150 ML 750 MG/150 ML BAG 100 MG IVPB (11:16)
--- NOTE | 2025-09-03 11:25 | P.PNIM_ITS ---
Progress Note: A&P Assessment and Plan (1) AMS (altered mental status): Qualifiers: Altered mental status type: disorientation Qualified Code(s): R41.0 - Disorientation, unspecified Code(s): R41.82 - Altered mental status, unspecified Status: Acute Assessment and Plan: New altered mental status discovered at 2:40 p.m. on 08/30. Last known well at 8:00 p.m. on 08/29. Patient has past medical history significant for multiple strokes with left-sided deficits and seizure disorder. Improving with Keppra. Breakthrough seizures versus new CVA versus combination there of. Current symptoms include who continue dysarthria and word-finding difficulties. Left upper extremity weakness noted, however residual from previous stroke. Increasing suspicion for CVA with breakthrough seizure secondary to stroke. - admission for observation and telemetry - not candidate for thrombolytics or thrombectomy due to time frame and no acute LVO noted on CTA - CXR: Interstitial opacities in both lungs. Differential includes interstitial edema, interstitial pneumonia or chronic interstitial changes. - head CT and CTA head/neck showed no acute findings - neurology consulted, ED spoke with on-call neurologist to recommended MRI and EEG - brain MRI w/wo ordered - echo w/Bubble ordered - neuro checks Q4 - consider PT/OT evaluation if acute CVA noted on MRI - ST eval as the patient has dysarthria on exam - monitor daily labs, check lipid panel and A1C - up ad anatoly or fall precautions - start Atorvastatin 40 mg PO, Plavix 75 mg PO, ASA 81 mg - consider 30 day event monitoring at discharge if abnormalities noted on telemetry 08/31 -completed MRI screening form with the help of POA -pending MRI -echocardiogram shows less than 15% 09/01 -seen by cardiology, who recommended NST given severe cardiomyopathy, however this was cancelled as he was not cooperative for exam -MRI brain also to be attempted, anticipate similar issue -LAEC BOLES was called on patient today as he became acutely combative- was able to be reoriented by security, but haldol prn has been added to regimen, though all attempts to reorient and use nonpharmacological means to be implemented first -Na improving 123 > 125 -neurology consulted for tomorrow 09/02 -Seen by neurology, who noted patient may behaving agitation as side effect of keppra given high dose and chronic use for seizures. Also did EEG which returned normal. Recommended add vimpat 100mg bid. MRI done and reviewed- new infarct in left hippocampus, but very small and cannot fully explain clinical findings. Clinical course complicated by 2 seizure events, tonic-clonic, lasting about 1- 1.5 min each. Neurology was contacted and recommended change vimpat from po to IV, and if still having seizures despite IV dosing, to consider adding Depakote 500mg bid-tid to regimen for further seizure control. 5mg Diazepam was given after second seizure event to abort. -Thiamine was started for history of alcohol dependence, though unclear if recent alcohol use. Clinical findings currently do not suggest Wernicke encephalopathy -Neurology will follow patient 09/04. -Sodium is improved 121 to 126 today, to continue monitoring -NST was done as well today - will await cardiology final recommendations. 09/03/2025 Patient had an episode of seizure this morning, transferred to ICU for management. Family notified (2) Seizure: Code(s): R56.9 - Unspecified convulsions Status: Acute Assessment and Plan: - see above - given Keppra 1500 IV, continue as Keppra 2G BID. Medication refilled on 08/21/25. -Lacosamide added IV 100mg, consider adding Depakote if still having seizures -s/p seizure episodes x2 09/02, aborted with diazepam 5mg, and above recommendations for prevention - check Keppra level - seizure precautions -neurology consult (3) History of stroke: Code(s): Z86.73 - Personal history of transient ischemic attack (TIA), and cerebral inf arction without residual deficits Status: Acute Assessment and Plan: - CT Head on 08/30 showed several old infarcts moderate-sized at the left parietal and occipital lobes, small at the right occipital lobe and a couple additional smaller old lacunar infarcts in the right frontal and left parietal lobe white matter. - previous residual left sided deficits -MRI - small L hippocampal infarct (4) Pneumonia: Qualifiers: Laterality: unspecified laterality Lung location: unspecified part of lung Pneumonia type: due to unspecified organism Qualified Code(s): J18.9 - Pneumonia, unspecified organism Code(s): J18.9 - Pneumonia, unspecified organism Status: Acute Assessment and Plan: Patient initially met SIRS criteria due to heart rate and hypoxia. CXR concern ing for possibility of pneumonia versus pulmonary edema. No leukocytosis. However lactic was 2.1. Checking procalcitonin. Blood cultures obtained on 08/30, follow. - started on Levaquin on 08/30. - supportive care: Mucinex, Tessalon Perles, Tylenol, DuoNebs (5) Chronic hyponatremia: Code(s): E87.1 - Hypo-osmolality and hyponatremia Status: Acute Assessment and Plan: Has history of chronic hyponatremia, during most recent admission possibly related to too much free water. Sodium levels fluctuated drastically in 2022 which is the most recent lab work available per chart review. Ranged from 127 to as high as 148. Most recently 131 on 07/22/2023. Upon admission the patient's sodium was 121. Has been as low as 116 in 2020. - check serum osmolality, urine osmolality, urine sodium, protein to creatinine ratio, urine creatinine - repeat BMP daily - neurochecks q4h - IV fluids: 1L bolus -> 125 mL/hr - regular diet -Na improving 123 > 126 (6) CHF (congestive heart failure): Qualifiers: Heart failure type: unspecified Heart failure chronicity: chronic Qualified Code(s): I50.9 - Heart failure, unspecified Code(s): I50.9 - Heart failure, unspecified Status: Acute Assessment and Plan: CXR showed interstitial opacities in both lungs, differential includes interstitial edema/interstitial pneumonia/chronic interstitial changes. - check BNP - no evidence of volume overload on exam - chart reviewed, no previous echo on file 08/31 Echocardiogram shows less than 15% Cardiology consulted- would like NST, however difficulties due to mental status noted. Diuretic not needed as he is euvolemic, GDMT with carvedilol 3.125mg bid, entresto bid, spironolactone 25mg qd started. Cardiology considers alcohol- related encephalopathy as component. (7) Atrial fibrillation: Qualifiers: Atrial fibrillation type: unspecified chronic Qualified Code(s): I48.20 - Chronic atrial fibrillation, unspecified Code(s): I48.91 - Unspecified atrial fibrillation Status: Acute Assessment and Plan: Initial EKG showed atrial far/tachycardia with RVR, rate 134. History of atrial fibrillation. HR now improved with IV fluids, currently ranging in the 80s. Cardiology consult Plan Diet: Regular GI Prophylaxis: N/a DVT Prophylaxis: SCDs IV fluids: 1L -> 125 mL/hr Lines/Tubes: Peripheral IV Code Status: Full code Subjective Date/time seen: 09/03/25 11:25 Interval history: Patient was seen during the morning rounds today. Was actively seizing. Patient was given Keppra and Ativan and transferred to [facility] for further treatment Patient transferred to intensive care unit this morning. Review of Systems Review of Systems: All systems reviewed & are unremarkable except as noted in HPI and below ROS unobtainable: Yes unobtainable due to endotracheal tube, unobtainable due to medical condition and unobtainable due to mental status Exam Narrative: General: Active seizure HEENT:? Pupils equal and reactive, sclerae is clear, Neck:? supple Respiratory:? Coarse breath sounds, no wheezing, adequate air entry Cardiac:? S1 S2 normal, regular rate and rhythm Abdomen:? Soft, nontender, nondistended, hypoactive bowel sound Extremities:? Lower extremity did Neuro:?Active seizure Skin:? Psych:? Const: General: comfortable and no acute distress Other: , male, frail, chronically ill-appearing HENMT: Face/Nose/Sinus: Normal nares present Mouth: Yes dry mucous membranes Eyes: General: appearance normal, both eyes and all related structures Sclera: sclerae normal Pupils: Equal, round and reactive pupils present EOM: EOMs intact bilaterally Resp: Effort & Inspection: normal respiratory effort Auscultation: clear to auscultation bilaterally Cardio: Rate: regular rate Rhythm: regular rhythm Other: S1-S2 present without murmur, rub, ectopy GI: Other: Abdomen soft, nondistended, nontender. Normoactive bowel sounds in all quadrants. Skin: General skin exam: normal color and no rashes or lesions noted Wounds: no wounds Neuro: Cranial nerves: Yes Equal, round and reactive pupils present Other: A&O x3, poor situational recall. Generalized weakness noted, +4 in all extremities. However trace weakness noted in the left upper extremity compared to the right upper extremity, chronic per patient. +dysarthria and word-finding difficulty. No nystagmus noted, no gaze deviation, no facial palsy. No sensory deficits. Extrem: General: normal to inspection Psych: Other: Fair to poor insight and judgment at present, pleasant. No agitation noted. No restlessness. Objective Data Vital Signs Vital Signs: Vital Signs - 24 hr 09/02/25 12:00 09/02/25 12:00 09/02/25 14:00 Temperature Pulse Rate 89 95 Respiratory Rate Blood Pressure Pulse Oximetry Oxygen Delivery Room Air Oxygen Flow Rate Fraction of Inspired Oxygen 09/02/25 16:00 09/02/25 16:14 09/02/25 17:34 Temperature 36.9 C Pulse Rate 102 H 98 94 Respiratory Rate 20 Blood Pressure 128/94 H 149/101 H Pulse Oximetry 97 Oxygen Delivery Oxygen Flow Rate Fraction of Inspired Oxygen 09/02/25 18:00 09/02/25 18:40 09/02/25 19:55 Temperature 36.9 C Pulse Rate 88 100 113 H Respiratory Rate 28 H Blood Pressure 140/98 H 151/102 H Pulse Oximetry 93 Oxygen Delivery Oxygen Flow Rate Fraction of Inspired Oxygen 09/02/25 19:58 09/02/25 20:00 09/02/25 20:00 Temperature Pulse Rate 108 H 96 108 H Respiratory Rate 28 H 28 H Blood Pressure 153/102 H Pulse Oximetry 93 98 Oxygen Delivery Room Air Nasal Cannula Oxygen Flow Rate 2 Fraction of Inspired Oxygen 09/02/25 20:00 09/02/25 22:00 09/03/25 00:00 Temperature 36.6 C Pulse Rate 108 H 85 91 Respiratory Rate 18 Blood Pressure 100/73 Pulse Oximetry 97 Oxygen Delivery Oxygen Flow Rate Fraction of Inspired Oxygen 09/03/25 00:00 09/03/25 00:18 09/03/25 01:29 Temperature Pulse Rate 92 91 90 Respiratory Rate 18 Blood Pressure Pulse Oximetry 97 Oxygen Delivery Nasal Cannula Oxygen Flow Rate 2 Fraction of Inspired Oxygen 09/03/25 02:59 09/03/25 03:10 09/03/25 04:00 Temperature 36.9 C Pulse Rate 96 96 97 Respiratory Rate 16 16 Blood Pressure 105/72 Pulse Oximetry 97 97 Oxygen Delivery Nasal Cannula Oxygen Flow Rate 2 Fraction of Inspired Oxygen 09/03/25 06:00 09/03/25 08:00 09/03/25 08:00 Temperature 36.7 C Pulse Rate 97 94 Respiratory Rate 20 Blood Pressure 81/62 L Pulse Oximetry 100 97 Oxygen Delivery Nasal Cannula Oxygen Flow Rate 2 Fraction of Inspired Oxygen 09/03/25 08:00 09/03/25 08:13 09/03/25 08:15 Temperature Pulse Rate 96 110 H Respiratory Rate 19 Blood Pressure 154/131 H 106/83 Pulse Oximetry Oxygen Delivery Oxygen Flow Rate Fraction of Inspired Oxygen 09/03/25 08:30 09/03/25 08:30 09/03/25 08:30 Temperature Pulse Rate 124 H 124 H 124 H Respiratory Rate 20 20 20 Blood Pressure 72/47 L Pulse Oximetry 99 Oxygen Delivery Oxygen Flow Rate Fraction of Inspired Oxygen 09/03/25 08:43 09/03/25 09:00 09/03/25 09:15 Temperature Pulse Rate 105 H 103 H 99 Respiratory Rate 20 20 Blood Pressure 100/53 L 84/64 L Pulse Oximetry 99 100 98 Oxygen Delivery Mechanical Ventilation Oxygen Flow Rate Fraction of Inspired Oxygen 100 09/03/25 09:23 09/03/25 09:30 09/03/25 09:36 Temperature Pulse Rate 105 H 102 H 99 Respiratory Rate 20 Blood Pressure 65/57 L 85/66 L 75/65 L Pulse Oximetry 97 Oxygen Delivery Oxygen Flow Rate Fraction of Inspired Oxygen 09/03/25 09:44 09/03/25 09:57 09/03/25 10:00 Temperature 37.6 C H Pulse Rate 98 89 89 Respiratory Rate 20 Blood Pressure 72/54 L 87/72 L 86/75 L Pulse Oximetry 95 Oxygen Delivery Oxygen Flow Rate Fraction of Inspired Oxygen 09/03/25 10:00 09/03/25 10:01 09/03/25 10:06 Temperature 37.6 C H 37.6 C H 37.6 C H Pulse Rate 88 87 85 Respiratory Rate 20 20 20 Blood Pressure 86/75 L 90/73 L Pulse Oximetry 95 95 95 Oxygen Delivery Oxygen Flow Rate Fraction of Inspired Oxygen 09/03/25 10:11 09/03/25 10:15 09/03/25 10:16 Temperature 37.7 C H 37.7 C H 37.7 C H Pulse Rate 84 82 83 Respiratory Rate 20 20 20 Blood Pressure 86/72 L 87/72 L Pulse Oximetry 95 96 96 Oxygen Delivery Oxygen Flow Rate Fraction of Inspired Oxygen 09/03/25 10:20 09/03/25 10:30 09/03/25 10:30 Temperature 37.7 C H Pulse Rate 84 93 87 Respiratory Rate 20 Blood Pressure 87/72 L 82/70 L 82/70 L Pulse Oximetry 97 Oxygen Delivery Oxygen Flow Rate Fraction of Inspired Oxygen 09/03/25 10:30 09/03/25 10:31 09/03/25 10:45 Temperature 37.7 C H 37.7 C H 37.7 C H Pulse Rate 93 94 99 Respiratory Rate 20 20 20 Blood Pressure 82/70 L 80/68 L Pulse Oximetry 95 95 94 Oxygen Delivery Oxygen Flow Rate Fraction of Inspired Oxygen 09/03/25 10:46 09/03/25 11:00 09/03/25 11:01 Temperature 37.7 C H 37.7 C H 37.7 C H Pulse Rate 100 103 H 104 H Respiratory Rate 20 20 20 Blood Pressure 73/64 L Pulse Oximetry 94 94 94 Oxygen Delivery Oxygen Flow Rate Fraction of Inspired Oxygen 09/03/25 11:04 Temperature Pulse Rate 111 H Respiratory Rate Blood Pressure Pulse Oximetry 95 Oxygen Delivery Mechanical Ventilation Oxygen Flow Rate Fraction of Inspired Oxygen 60 Intake/Output Intake/Output: Intake & Output 08/31/25 09/01/25 09/02/25 09/03/25 23:59 23:59 23:59 23:59 Intake Total 1800.4 195 1400 765.0 Output Total 1625 855 0 0 Balance 175.4 -660 1400 765.0 Meds/Results Medications: Active Medications Generic Name Dose Route Start Last Admin Trade Name Freq PRN Reason Stop Dose Admin Acetaminophen 650 mg 08/30/25 19:05 Acetaminophen 325 Mg Tablet PO On Hold: 09/02/25 20:19 Q4H PRN Comment: PT NOT ABLE TO Mild Pain (1-3) or Fever SWALLOW PILLS DUE TO SEIZURES, HOLD UNTIL PT ABLE TO DO PO Albuterol/Ipratropium 3 ml 09/03/25 14:00 Ipratropium 0.5 Mg/Albuterol Sulfate 2.5 Mg (Base) Ampul.Neb 3 Ml INHALATION Q6HRT NESSA Aspirin 81 mg 08/31/25 09:00 09/02/25 08:50 Aspirin 81 Mg Enteric Tablet PO 81 mg QAM NESSA Administration Atorvastatin Calcium 80 mg 09/03/25 09:00 Atorvastatin 40 Mg Tablet PO DAILY NESSA Clopidogrel Bisulfate 75 mg 08/31/25 09:00 09/02/25 08:53 Clopidogrel Bisulfate 75 Mg Tablet PO 75 mg QAM NESSA Administration Dextrose 12.5 gm 08/31/25 02:45 Dextrose 50% 25 Gm/50 Ml Syringe IV PUSH PRN PRN Hypoglycemia Protocol Glucose 15 gm 08/31/25 02:45 Glucose Oral Gel 15 Gm Of Glucse In 37.5 Gm Tube PO PRN PRN Hypoglycemia Protocol Dextrose 1,000 mls @ 100 mls/hr 08/31/25 02:45 Dextrose 5% 1,000 Ml IVPB PRN PRN Hypoglycemia Protocol Levofloxacin/Dextrose 750 mg in 150 mls @ 100 mls/hr 09/02/25 09:00 09/03/25 11:16 Levaquin 750 Mg/D5w 150 Ml IVPB 100 mls/hr Q24H NESSA Administration Lacosamide 100 mg/ Sodium 100 mls @ 200 mls/hr 09/02/25 20:00 09/03/25 10:30 Chloride IVPB Infused Q12HR NESSA Infusion Levetiracetam 2,000 mg/ Sodium 120 mls @ 480 mls/hr 09/02/25 21:00 09/03/25 08:10 Chloride IVPB Infused Q12HR NESSA Infusion Fentanyl Citrate 2,500 mcg in 250 mls @ 2.5 mls/hr 09/03/25 08:30 09/03/25 08:30 Fentanyl 2,500 Mcg/Ns 250 Ml IV CONT 25 mcg/hr .Q72H NESSA 2.5 mls/hr Protocol Administration 25 MCG/HR Midazolam HCl 100 mg in 100 mls @ 4 mls/hr 09/03/25 08:30 09/03/25 08:30 Versed 100 Mg/Ns 100 Ml IV CONT 4 mg/hr .Q25H NESSA 4 mls/hr Protocol Administration 4 MG/HR Phenylephrine HCl 50 mg/ 250 mls @ 54 mls/hr 09/03/25 08:45 09/03/25 10:30 Sodium Chloride IV CONT 180 mcg/min .Q4H38M NESSA 54 mls/hr Protocol Titration 180 MCG/MIN Dobutamine HCl/Dextrose 250 mg in 250 mls @ 18.66 mls/hr 09/03/25 10:10 09/03/25 10:20 Dobutamine 250 Mg/D5w 250 Ml IV CONT 5 mcg/kg/min .[id number] NESSA 18.66 mls/hr 5 MCG/KG/MIN Administration Norepinephrine Bitartrate 8 mg in 250 mls @ 9.375 mls/hr 09/03/25 11:20 Levophed 8 Mg/D5w 250 Ml IV CONT .Q24H NESSA Protocol 5 MCG/MIN Multi-Ingred Cream/Lotion/Oil/Oint 1 applic 09/03/25 09:00 09/03/25 10:24 Mineral Oil/White Petrolatum Ointment EACH EYE 1 applic Q12HR NESSA Administration Ondansetron HCl 4 mg 08/30/25 19:05 Ondansetron Inj 4 Mg/2 Ml Vial IV PUSH Q4H PRN Nausea Sodium Chloride 10 ml 09/03/25 14:00 Central Line Flush IV PUSH Q8HR NESSA Sodium Chloride 10 ml 09/03/25 09:18 Central Line Flush IV PUSH PRN PRN with TPN bag changes Sodium Chloride 20 ml 09/03/25 09:18 Central Line Flush IV PUSH PRN PRN after blood draws Thiamine HCl 100 mg 09/02/25 10:55 09/02/25 13:54 Thiamine Hcl 100 Mg Tablet PO 100 mg QAM NESSA Administration Radiology Results: ITS Impressions Head CT 08/30/25 15:50 IMPRESSION: 1. No acute intracranial process. 2. Several old infarcts moderate-sized at the left parietal and occipital lobes, small at the right occipital lobe and a couple additional smaller old lacunar infarcts in the right frontal and left parietal lobe white matter. 3. Age-related changes including moderate diffuse volume loss and mild scattered white matter hypoattenuation consistent with chronic small vessel ischemic disease. Head/Neck CTA 08/30/25 16:39 IMPRESSION: 1. Limited study. There is no gross critical stenosis, occlusion or aneurysm identified Brain MRI 09/02/25 11:50 IMPRESSION: 1. 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 2. Multiple old infarcts in the brain. 3. Moderate nonspecific cerebral white matter disease, which likely represents chronic small vessel ischemic disease. 4. No detectable contrast on the postcontrast images. Correlate with physical exam for IV infiltration. Lexiscan Stress Test 09/02/25 14:08 IMPRESSION: 1. Moderate to severe nonreversible perfusion defect consistent with infarct of the mid inferoseptal, mid inferior to lesser degree mid inferolateral segments. No reversible ischemia. 2. Global hypokinesis with moderately decreased left ventricular ejection fraction measuring 26%. Chest X-Ray 09/03/25 09:20 IMPRESSION: 1. Right PICC line tip in the midsuperior vena cava. 2. Minimal bibasilar atelectasis or pulmonary edema with subtle airspace opacity right lower lung zone which could represent atelectasis or pneumonia. Labs Labs: Laboratory Results - last 24 hr 08/30/25 09/02/25 09/02/25 15:58 03:56 13:33 WBC RBC Hgb Hct MCV MCH MCHC RDW Plt Count MPV Immature Gran % (Auto) Neut % (Auto) Lymph % (Auto) [place] % (Auto) Eos % (Auto) Baso % (Auto) Lymph # (Auto) [place] # (Auto) Eos # (Auto) Baso # (Auto) Abs Immat Gran (auto) Absolute Neuts (auto) Absolute Nucleated RBC Nucleated RBC % ABG pH ABG pCO2 ABG pO2 ABG PO2/FiO2 Ratio ABG HCO3 ABG O2 Saturation ABG O2 Content ABG Base Excess A-a Gradient Oxyhemoglobin Carboxyhemoglobin Methemoglobin Reduced Hemoglobin Total Hemoglobin FiO2 Sodium Potassium Chloride Carbon Dioxide Anion Gap BUN Creatinine Estim Creat Clear Calc Estimated GFR Glucose POC Capillary Glucose 105 Calcium Total Bilirubin AST ALT Alkaline Phosphatase Total Protein Albumin Vitamin B12 Vitamin D 25-Hydroxy Folate Levetiracetam 49.2 H Scl-70 Scleroderma Ab Cancelled 09/02/25 09/02/25 09/02/25 15:34 17:55 20:24 WBC RBC Hgb Hct MCV MCH MCHC RDW Plt Count MPV Immature Gran % (Auto) Neut % (Auto) Lymph % (Auto) [place] % (Auto) Eos % (Auto) Baso % (Auto) Lymph # (Auto) [place] # (Auto) Eos # (Auto) Baso # (Auto) Abs Immat Gran (auto) Absolute Neuts (auto) Absolute Nucleated RBC Nucleated RBC % ABG pH ABG pCO2 ABG pO2 ABG PO2/FiO2 Ratio ABG HCO3 ABG O2 Saturation ABG O2 Content ABG Base Excess A-a Gradient Oxyhemoglobin Carboxyhemoglobin Methemoglobin Reduced Hemoglobin Total Hemoglobin FiO2 Sodium Potassium Chloride Carbon Dioxide Anion Gap BUN Creatinine Estim Creat Clear Calc Estimated GFR Glucose POC Capillary Glucose 84 157 H Calcium Total Bilirubin AST ALT Alkaline Phosphatase Total Protein Albumin Vitamin B12 819.0 Vitamin D 25-Hydroxy 43.2 Folate 10.6 Levetiracetam Scl-70 Scleroderma Ab 09/03/25 09/03/25 09/03/25 04:09 04:10 07:33 WBC 10.4 H RBC 4.23 L Hgb 13.7 L Hct 40.1 L MCV 94.8 MCH 32.4 MCHC 34.2 RDW 13.9 Plt Count 307 MPV 9.2 Immature Gran % (Auto) 0.6 H Neut % (Auto) 70.5 Lymph % (Auto) 17.1 L [place] % (Auto) 11.5 H Eos % (Auto) 0.0 Baso % (Auto) 0.3 Lymph # (Auto) 1.78 [place] # (Auto) 1.2 H Eos # (Auto) 0.0 Baso # (Auto) 0.0 Abs Immat Gran (auto) 0.06 H Absolute Neuts (auto) 7.3 H Absolute Nucleated RBC 0.000 Nucleated RBC % 0.0 ABG pH ABG pCO2 ABG pO2 ABG PO2/FiO2 Ratio ABG HCO3 ABG O2 Saturation ABG O2 Content ABG Base Excess A-a Gradient Oxyhemoglobin Carboxyhemoglobin Methemoglobin Reduced Hemoglobin Total Hemoglobin FiO2 Sodium 125 L Potassium 3.4 Chloride 93 L Carbon Dioxide 26 Anion Gap 6 BUN 29 H Creatinine 0.81 Estim Creat Clear Calc 75 Estimated GFR > 60 Glucose 121 H POC Capillary Glucose 125 H Calcium 8.2 L Total Bilirubin 0.6 AST 44 ALT 22 Alkaline Phosphatase 62 Total Protein 6.1 L Albumin 3.5 Vitamin B12 Vitamin D 25-Hydroxy Folate Levetiracetam Scl-70 Scleroderma Ab 09/03/25 09:31 WBC RBC Hgb Hct MCV MCH MCHC RDW Plt Count MPV Immature Gran % (Auto) Neut % (Auto) Lymph % (Auto) [place] % (Auto) Eos % (Auto) Baso % (Auto) Lymph # (Auto) [place] # (Auto) Eos # (Auto) Baso # (Auto) Abs Immat Gran (auto) Absolute Neuts (auto) Absolute Nucleated RBC Nucleated RBC % ABG pH 7.371 ABG pCO2 43.0 ABG pO2 162.5 H ABG PO2/FiO2 Ratio 1.81 ABG HCO3 24.4 ABG O2 Saturation 99.0 ABG O2 Content 19.6 ABG Base Excess -1.0 A-a Gradient 435.1 Oxyhemoglobin 98.0 Carboxyhemoglobin 1.3 Methemoglobin 0.3 Reduced Hemoglobin 0.4 Total Hemoglobin 14.0 FiO2 90 Sodium Potassium Chloride Carbon Dioxide Anion Gap BUN Creatinine Estim Creat Clear Calc Estimated GFR Glucose POC Capillary Glucose Calcium Total Bilirubin AST ALT Alkaline Phosphatase Total Protein Albumin Vitamin B12 Vitamin D 25-Hydroxy Folate Levetiracetam Scl-70 Scleroderma Ab Quality VTE Prophylaxis VTE prophylaxis: mechanical ordered
[2025-09-03] MEDS: NOREPINEPHRINE 8 MG/D5W 250 ML 8 MG/250 ML BAG 9.38 MG IV CONT (11:30)
--- NOTE | 2025-09-03 11:35 | PCPTNOTE ---
attempted PT eval, pt was transferred to the ICU this morning from IMU, per ANGÉLICA Chavira: pt is experiencing low BP and not appropriate for therapy at this time, will follow as pt is appropriate
--- NOTE | 2025-09-03 12:05 | P.CONNP_ITS ---
Assessment and Plan Assessment and plan (1) Hyponatremia: Code(s): E87.1 - Hypo-osmolality and hyponatremia Status: Acute Assessment and Plan: * acute on chronic * baseline sodium not entirely clear as it has fluctuated to extremes as noted on previous hospitalizations here at [facility] * last sodium noted to be ~ 131mmol/L on June 2023 * multiple risk factors for low sodium * known history of alcohol abuse * recent CVA/stroke * seizure * CHF/cardiomyopathy * medications: - narcotics - duloextine * tobacco use * lung disease * thyroid disease * mild improvement noted since admission * relatively stable at this time * consider further testing but noted possible transfer to another facility... * follow trend of repeat sodium levels (2) Shock: Code(s): R57.9 - Shock, unspecified Status: Acute Assessment and Plan: * as noted upon transfer to the ICU * suspect septic versus cardiogenic versus combination of both... * noted new ischemic cardiomyopathy (by Echo and stress testing) * however, cannot discount acute infection * follow culture data * empiric antibiotics * vasopressor support with neosynephrine and levophed * also on dobutamine for inotropic support * follow trend of hemodynamics (3) Acute respiratory failure: Code(s): J96.00 - Acute respiratory failure, unspecified whether with hypoxia or hypercapnia Status: Acute Assessment and Plan: * due to several issues: * eizure activity * inability to protect airway * agonal breathing * hypotension * intubated earlier today and on mecahnical ventilation * weaning once more stable (4) Acute cerebrovascular accident (CVA): Code(s): I63.9 - Cerebral infarction, unspecified Status: Acute Assessment and Plan: * as noted by imaging to date: * CT angio head and neck: limited study; here is no gross critical stenosis, occlusion or aneurysm identified * CT scan of the brain: no acute intracranial process; several old infarcts moderate-sized at the left parietal and occipital lobes, small at the right occipital lobe and a couple additional smaller old lacunar infarcts in the right frontal and left parietal lobe white matter; age-related changes including moderate diffuse volume loss and mild scattered white matter hypoattenuation consistent with chronic small vessel ischemic disease. * Brain MRI: acute infarct in the left hippocampus, multiple old infarcts in the brain, moderate nonspecific cerebral white matter disease which likely represents chronic small vessel ischemic disease * repeat CT of brain to be done * Neurology following (5) Seizure: Code(s): R56.9 - Unspecified convulsions Status: Acute Assessment and Plan: * as noted on admission and earlier today * Neurology following * EEG showed essential normal EEG obtained during awake and drowsy states; frequent blinking artifacts were noted throughout the record adding; no definite focal or paroxysmal epileptiform abnormalities * on keppra and vimpat (6) Ischemic cardiomyopathy: Code(s): I25.5 - Ischemic cardiomyopathy Status: Acute Assessment and Plan: * new finding on this admission * Echo (on 08/31) noted: * severely reduced systolic function, EF of <15% * left ventricular diastolic function is abnormal * apical inferior wall, mid inferior wall, basal inferior septal, mid inferior septal, basal anteroseptal, mid anteroseptal and mid inferior lateral wall akinetic * anterior wall, anterolateral wall, apical septum, apical cap, and basal inferior wall are hypokinetic * RV systolic function is reduced * Lexiscan stress test (09/02): * no ST T wave changes * moderate to severe nonreversible perfusion defect consistent with infarct of the mid inferoseptal, mid inferior to lesser degree main inferior lateral segments * no reversible ischemia * global hypokinesis moderately decreased left ventricular ejection fraction measuring 26% * Cardiology following * on dobutamine gtt (7) Protein calorie malnutrition: Code(s): E46 - Unspecified protein-calorie malnutrition Status: Acute Assessment and Plan: * as noted by admission BMI * to start tube feeds for nutritional support I will continue to follow the patient with you while he remains hospitalized and make further recommendations as deemed necessary. Thank you for allowing me to participate in the care of this patient. L History of Present Illness Reason for Consult Consult date: 09/03/25 Reason for consult: hyponatremia Chief Complaint Chief complaint: Seizure, Hyponatremia History of Present Illness Narrative: All the information I have obtained is review of the electronic medical record as well as discussion with the physician/nurses involved the patient's care as the patient unable provide me with any history as he is currently intubated and on mechanical ventilation. The patient is a 60-year-old male with extensive past medical history as outlined below who presented to [facility] Emergency Room several days ago due to altered mental status. He arrived via EMS and was not responsive to pain, had facial twitching bilaterally along with twitching of the extremities. This was suspected to be seizure activity. CT brain without contrast did not show any acute intracranial process other than old infarcts as well as age related changes including moderate diffusion volume loss consistent with chronic small-vessel ischemic disease. Head and neck CTA was a limited study but there is no gross critical stenosis, occlusion or aneurysm identified.He was subsequently admitted to the hospital for further evaluation and therapy related to his altered mental status and seizure activity. Since his admission, further testing and diagnostic studies have demonstrated that he did have acute stroke as noted by his MRI of the brain in association with seizure activity confirmed by the montano testing. Further complicating matters is that he has a new cardiomyopathy as demonstrated by his echocardiogram and subsequent stress test. Neurology as well as Cardiology has been following the patient for these issues. Earlier this morning, the patient had twitching of his head, upper extremities, and torso as well as a right-sided gaze deviation in association hypotension with a systolic BP in the 80s. He was given IV Ativan and subsequently transferred to the ICU due to concern for possible seizure activity and shock. 500 cc normal saline was infused with minimal improvement in his blood pressure. His respiratory status started to decline with associated agonal breathing. Due to his altered mental status, seizures, and hypotension as well as the that the patient was unable to protect his airway, he was intubated and placed on mechanical ventilation. His blood pressure continued to decline and eventually he was started on vasopressor therapy to maintain his blood pressure/ mean arterial pressure. Renal consultation was requested due to his acute on chronic hyponatremia. From review of his records, the patient has had issues with hyponatremia that they back as far as 2020 if not earlier. He was hospitalized here at [facility] in February of 2021 with acute on chronic hyponatremia with a sodium level of 116 and with conservative therapy with regard to IV fluids, salt tablets, fluid restriction, his sodium level was 129 by the time of discharge. He was hospitalized again in October 2022 for acute on chronic hyponatremia in association with seizures as well. Once again, he responded to similar therapy with 3% saline and fluid restrication with normalization of his sodium on discharge. It was felt that his chronic hyponatremia is related to his known excessive alcohol intake based of his extensive work-up and evaluation. The last sodium I have with regard to comparison to his admission sodium of 121mmol/L is 131mmol/L which was from June 2023. On this hospitalization, his sodium has improved to 126mmol/L yesterday but is not 125mmol/L by AM labs today. Currently, at the time my visit, he is intubated/sedated and on mechanical ventilation as well as vasopressor support. Review of Systems 2 Review of Systems: As per HPI. [facility] Past Medical History Medical History (Updated 09/13/25 @ 00:24 by Behzad Ortega MD) Seizure disorder Cerebrovascular disease Alcoholic cirrhosis of liver COPD (chronic obstructive pulmonary disease) HLD (hyperlipidemia) Atrial fibrillation Colon cancer screening Erosive gastritis Aphasia Encephalopathy Protein calorie malnutrition Gastroesophageal reflux disease Hypothyroidism Chronic hyponatremia Chronic anemia Cerebrovascular accident With left-sided residual weakness. Congestive heart failure Echocardiogram on 07/17/2021 showed normal LV chamber dimension and function with an estimated EF of 65 to 70% and grade 1 diastolic dysfunction with mild pulmonary hypertension estimated pulmonary arterial systolic pressure of 37 mmHg. COVID (08/2021) DVT prophylaxis Alcohol dependence last drink in 2022 Adult failure to thrive Orthostatic hypotension Tobacco dependence Hypertension Surgical History Surgical History History of excision of testicular mass With benign histology. Family History Family History Father Chronic obstructive pulmonary disease Congestive heart failure Hypertension Mother Abdominal aortic aneurysm rupture Daughter Type 1 diabetes mellitus Social History Social History Social History: The patient lives with his brother The patient has 3 children. And is disabled. The patient states that he likes to drink whiskey and does not like to drink beer. The patient is single and unemployed Surrogate decision maker: Bere Rushjewelshoda, sister. Code status: Full code. Smoking packs per day: 1 Smoking cigarettes per day: 20.0 Years smoked: 25 Smoking pack-years: 25.00 Smoking status: Current every day smoker Tobacco type: cigarettes Additional smoking assessment comments: patient on nicotine patch Alcohol intake: former Alcohol use details: None Substance use: never Substance use type: does not use Other substance usage details: 200ml whiskey/day Do You Feel Safe in your Home?: Yes Lack of Transportation: No Lack of Food: Never True Current Housing: I Have Housing Concerned About Future Housing: No Difficulty Paying Gas/Electric Bills: No Difficulty Paying for Meds: No Currently Unemployed: No Education: High School Diploma/GED Difficulty w/ Childcare or Family Care: No Additional living arrangements comments: Resident at [facility]. Additional occupation/education comments: Unemployed. Spiritual care concerns: No Meds Home Medications and Allergies Home Medications ?Medication ?Instructions ?Recorded ?Confirmed ?Type lisinopril 20 mg tablet 20 mg feeding tube DAILY 08/31/25 History hydrocodone 7.5 mg-acetaminophen 1 tablet PO Q12H PRN pain 08/30/25 08/31/25 History 325 mg tablet levetiracetam 1,000 mg tablet 2,000 mg PO Q12H 5 08/30/25 History duloxetine 30 mg capsule,delayed 60 mg PO DAILY 08/31/25 History release lacosamide 200 mg tablet 200 mg PO Q12H 08/31/2506/18 History levothyroxine 25 mcg tablet 25 mcg PO DAILY 08/31/25 1 History Allergies Allergy/AdvReac Type Severity Reaction Status Date / Time amoxicillin Allergy Rash Verified 08/30/25 16:58 gadobenic acid (From AdvReac Difficulty Verified 08/30/25 16:58 contrast - MRI) Breathing iohexol (From contrast - CT, AdvReac Difficulty Verified 08/30/25 16:58 X-RAY) Breathing Vital Signs Vital Signs Temp Pulse Resp BP Pulse Ox O2 Del Method O2 Flow Rate 09/03/25 12:00 107 H 83/69 L 09/03/25 11:55 108 H 86/70 L 09/03/25 11:50 113 H 68/58 L 09/03/25 11:45 113 H 68/55 L 09/03/25 11:30 107 H 76/66 L 09/03/25 11:04 111 H 95 Mechanical Ventilation 09/03/25 11:01 99.8 F H 104 H 20 73/64 L 94 09/03/25 11:00 99.8 F H 103 H 20 94 09/03/25 10:46 99.8 F H 100 20 94 09/03/25 10:45 99.8 F H 99 20 80/68 L 94 09/03/25 10:31 99.8 F H 94 20 82/70 L 95 09/03/25 10:30 99.8 F H 93 20 95 09/03/25 10:30 99.8 F H 87 20 82/70 L 97 09/03/25 10:30 93 82/70 L 09/03/25 10:20 84 87/72 L 09/03/25 10:16 99.8 F H 83 20 96 09/03/25 10:15 99.8 F H 82 20 87/72 L 96 09/03/25 10:11 99.8 F H 84 20 86/72 L 95 09/03/25 10:06 99.7 F H 85 20 90/73 L 95 09/03/25 10:01 99.7 F H 87 20 86/75 L 95 09/03/25 10:00 87 20 09/03/25 10:00 87 20 09/03/25 10:00 99.7 F H 88 20 95 09/03/25 10:00 99.7 F H 89 20 86/75 L 95 09/03/25 10:00 89 09/03/25 09:57 89 87/72 L 09/03/25 09:44 98 72/54 L 09/03/25 09:36 99 75/65 L 09/03/25 09:30 102 H 20 85/66 L 97 09/03/25 09:23 105 H 65/57 L 09/03/25 09:15 99 20 84/64 L 98 09/03/25 09:00 103 H 20 100/53 L 100 09/03/25 08:43 105 H 99 Mechanical Ventilation 09/03/25 08:30 124 H 20 72/47 L 99 09/03/25 08:30 124 H 20 09/03/25 08:30 124 H 20 09/03/25 08:15 110 H 19 106/83 09/03/25 08:13 154/131 H 09/03/25 08:00 96 09/03/25 08:00 97 Nasal Cannula 2 09/03/25 08:00 98.1 F 94 20 81/62 L 100 09/03/25 06:00 97 09/03/25 04:00 97 09/03/25 03:10 96 16 97 Nasal Cannula 2 09/03/25 02:59 98.5 F 96 16 105/72 97 09/03/25 01:29 90 09/03/25 00:18 91 18 97 Nasal Cannula 2 09/03/25 00:00 92 09/03/25 00:00 98 F 91 18 100/73 97 09/02/25 22:00 85 09/02/25 20:00 108 H 09/02/25 20:00 108 H 28 H 98 Nasal Cannula 2 09/02/25 20:00 96 153/102 H 09/02/25 19:58 108 H 28 H 93 Room Air 09/02/25 19:55 98.4 F 113 H 28 H 151/102 H 93 Exam 2 Narrative: GENERAL APPEARANCE: well developed well nourished male intubated/sedated and on mechanical ventilation. HEENT: normocephalic, atraumatic, normal conjunctiva and sclera, nares patient NECK: no lymphadenopathy, thyromegaly, or JVD MOUTH: normal lips, teeth, and gums; ETT in place CARDIOVASCULAR: RRR, normal S1 and S2, no rub RESPIRATORY: coarse breath sounds ABDOMEN: soft, nontender, nondistended, diminished bowel sounds present EXTREMITIES: no evidence of cyanosis, clubbing; trace edema NEUROLOGICAL: unable to assess Results Lab Results 09/03/25 04:10 09/03/25 04:09 Lab results: Most recent lab results ABG pH 7.371 (7.350-7.450) 09/03/25 09:31 ABG pCO2 43.0 mmHg (35.0-45.0) 09/03/25 09:31 ABG pO2 162.5 mmHg (80.0-100.0) H 09/03/25 09:31 ABG HCO3 24.4 mEq/l (22.0-26.0) 09/03/25 09:31 ABG O2 Saturation 99.0 % (95.0-100.0) 09/03/25 09:31 Calcium 8.2 mg/dL (8.4-10.2) L 09/03/25 04:09 Magnesium 1.8 mg/dL (1.6-2.3) 08/31/25 05:16
[2025-09-03] MEDS: ALBUMIN HUMAN 25% 25 GM/100 ML 100 ML IVPB ×2 (12:22→17:44)
--- NOTE | 2025-09-03 13:03 | PCOTNOTE ---
attempted OT eval, pt was transferred to the ICU this morning from IMU, per ANGÉLICA Chavira: pt is experiencing low BP and not appropriate for therapy at this time, will follow as pt is appropriate
[2025-09-03] MEDS: metroNIDAZOLE 500 MG/ISO 100ML 500 MG/100 ML BAG 100 MG IVPB ×2 (13:57→20:22)
[2025-09-03] MEDS: cefTRIAXone 2 GM in SODIUM CHLORIDE 0.9% IV 100 ML 200 ML IVPB (13:57)
[2025-09-03] MEDS: PANTOPRAZOLE SODIUM IV 40 MG VIAL IV PUSH (13:57)
[2025-09-03] MEDS: ATORVASTATIN 40 MG TABLET 80 MG FEED TUBE (14:05)
[2025-09-03] MEDS: THIAMINE HCL 100 MG TABLET FEED TUBE (14:06)
[2025-09-03] MEDS: CENTRAL LINE FLUSH 10 ML IV PUSH ×2 (14:06→20:22)
[2025-09-03] MEDS: ASPIRIN 81 MG CHEWABLE TABLET FEED TUBE (14:06)
[2025-09-03] MEDS: CLOPIDOGREL BISULFATE 75 MG TABLET FEED TUBE (14:06)
[2025-09-03] MEDS: LEVOTHYROXINE SODIUM 25 MCG TABLET FEED TUBE (14:09)
[2025-09-03] MEDS: PHENYLEPHRINE HCL INJ 50 MG in SODIUM CHLORIDE 0.9% IV 245 ML 54 ML IV CONT ×2 (14:24→19:01)
[2025-09-03 14:27] LABS: Estimated CRCL calculation 68 ml/min; Estimated Glomerular Filt Rate > 60
[2025-09-03 14:32] LABS: Free T3 4.78 pg/mL (2.71-6.16)
[2025-09-03] MEDS: IPRATROPIUM 0.5 MG/ALBUTEROL SULFATE 2.5 MG (BASE) AMPUL.NEB 3 ML INHALATION ×2 (14:33→19:57)
[2025-09-03 14:46] LABS: Thyroid Stimulating Hormone 1.790 uIU/mL (0.465-4.680)
[2025-09-03] MEDS: VANCOMYCIN 1,500 MG/NS 500 ML 1,500 MG/500 ML BAG 250 MG IVPB (14:51)
[2025-09-03] MEDS: HYDROCORTISONE SODIUM SUCCINATE 100 MG/2 ML VIAL IV PUSH ×2 (14:51→20:21)
[2025-09-03 15:01] LABS: Free T4 Free Thyroxine 1.55 ng/dL (0.78-2.19)
[2025-09-03 15:09] LABS: ANA by IFA Rfx Titer/Pattern Negative (.)
[2025-09-03] MEDS: NOREPINEPHRINE 8 MG/D5W 250 ML 8 MG/250 ML BAG 24.38 MG IV CONT (20:19)
[2025-09-03] MEDS: PHENYTOIN SODIUM INJ 100 MG/2 ML VIAL (*BKC) IV PUSH (20:21)
[2025-09-07 09:59] LABS: Arterial Blood Gas Tidal Volume 450 ml; Arterial Blood Gas Ventilator rate 20 /MIN; Modified Allen's Test Pass
--- NOTE | 2025-10-12 10:58 | P.TS_ITS ---
Transfer Discharge Sum: Prov Provider Date of admission: 09/01/25 08:41 Primary care physician: Sang Alfaro, PA Admitting clinician: Arturo Abraham MD Consults: 08/30/25 19:09 Consult to Physician Routine Comment: Consulting Provider: Wesley Cueva Reason for consultation: Seizure , AMS Has provider been notified: Yes 08/31/25 Consult to Physician Routine Comment: Consulting Provider: Jesse Thorpe call worker/MD group to consult: cardiology Reason for consultation: EF<15, abnormal echo Has provider been notified: Yes 09/01/25 Consult to Physician Routine Comment: Spoke with and notified him of consult Consulting Provider: Wesley Cueva call worker/MD group to consult: neurology Reason for consultation: AMS, seizure disorder, stroke history Has provider been notified: Yes 09/01/25 08:24 Care Coordination Consult Routine Reason for Consult:: [facility] 09/03/25 Consult to Physician Routine Comment: Consulting Provider: Taye Pfeiffer Reason for consultation: ICU admission Has provider been notified: Yes 09/03/25 11:43 Consult to Physician Routine Comment: Spoke with Dr. Ortega Consulting Provider: Behzad Ortega call worker/MD group to consult: Nephrology Reason for consultation: Hyponatremia Has provider been notified: Yes DS: Admitting Diagnosis Discharge Date 09/03/25 Admitting Diagnosis Mental status change Seizure DS: Discharge Diagnosis Discharge Diagnosis (1) Acute respiratory failure: Code(s): J96.00 - Acute respiratory failure, unspecified whether with hypoxia or hypercapnia Status: Acute Assessment and Plan: Acute respiratory failure likely related to seizure activity, unable to protect airway, agonal breathing, hypotension -09/03: Patient was intubated in the ICU -continue CMV mode of ventilation, peep of 5, currently on 60% FiO2 -ABGs and chest x-ray reviewed -continue bronchodilators -sedated with Versed and fentanyl infusion, maintain RASS a -2 for now -daily sedation vacation, SBT will depend upon patient's neurological status (2) Shock: Code(s): R57.9 - Shock, unspecified Status: Acute Assessment and Plan: Patient with altered mental status, hypotension, shock. -given new ischemic cardiomyopathy along with ischemia as noticed on the echocardiogram and Lexiscan with multiple wall motion abnormalities -likely cardiogenic versus septic -since patient had new seizures post acute stroke with history of seizures and being on Keppra and Vimpat which are managed by Neurology. 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 Moderate to severe nonreversible perfusion defect consistent with infarct of the mid inferoseptal, mid inferior to lesser degree main inferior lateral segments. No reversible ischemia. 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 09/02: EEG showed essential normal EEG obtained during awake and drowsy states. Frequent blinking artifacts were noted throughout the record adding. No definite focal or paroxysmal epileptiform abnormalities (4) AMS (altered mental status): Qualifiers: Altered mental status type: disorientation Qualified Code(s): R41.0 - Disorientation, unspecified Code(s): R41.82 - Altered mental status, unspecified Status: Acute Assessment and Plan: Acute mental status likely related to above (5) Acute stroke due to ischemia: Code(s): I63.9 - Cerebral infarction, unspecified Status: Acute Assessment and Plan: Acute stroke as mentioned above, Neurology following the patient -patient also has a history of old infarcts as seen on CT brain and CT angio the were done on admission -neurology following 08/30/2025: CT angio head and neck: 1. Limited study. There is no gross critical stenosis, occlusion or aneurysm identified 08/30/2025 CT scan of the brain 1. No acute intracranial process. 2. Several old infarcts moderate-sized at the left parietal and occipital lobes, small at the right occipital lobe and a couple additional smaller old lacunar infarcts in the right frontal and left parietal lobe white matter. 3. Age-related changes including moderate diffuse volume loss and mild scattered white matter hypoattenuation consistent with chronic small vessel ischemic disease. (6) Ischemic cardiomyopathy: Code(s): I25.5 - Ischemic cardiomyopathy Status: Acute Assessment and Plan: Patient with ischemic cardiomyopathy -cardiology following the patient -will hold hold heart failure medications given patient's blood pressures are low, patient in shock -discussed with cardiology, Lexiscan stress test EF of 26% is more accurate than the echocardiogram (<15%) which is a more of an estimate. 09/02: Lexiscan stress test did not show any ST T wave changes. Moderate to severe nonreversible perfusion defect consistent with infarct of the mid inferoseptal, mid inferior to lesser degree main inferior lateral segments. No reversible ischemia. Global hypokinesis moderately decreased left ventricular ejection fraction measuring 26% -08/31: Echocardiogram showed an EF of <15%, severely reduced systolic function. Left ventricular diastolic function is abnormal. Apical inferior wall, mid inferior wall, basal inferior septal, mid inferior septal, basal anteroseptal, mid anteroseptal and mid inferior lateral wall akinetic. The anterior wall, anterolateral wall, apical septum, apical cap, and basal inferior wall are hypokinetic. RV systolic function is reduced (7) Atrial fibrillation: Qualifiers: Atrial fibrillation type: unspecified chronic Qualified Code(s): I48.20 - Chronic atrial fibrillation, unspecified Code(s): I48.91 - Unspecified atrial fibrillation Status: Acute Assessment and Plan: History of atrial fibrillation, will continue aspirin -currently in sinus rhythm, tachycardic (8) Hypothyroidism: Code(s): E03.9 - Hypothyroidism, unspecified Status: Acute Assessment and Plan: Patient has a history of hypothyroidism, currently not on any levothyroxine -will obtained TSH, along with T3 and T4 levels -restart home levothyroxine (9) Protein calorie malnutrition: Code(s): E46 - Unspecified protein-calorie malnutrition Status: Acute Assessment and Plan: Will start trickle tube feeds given patient has severe protein calorie malnutrition as evident with his BMI of 18.6 -phosphorus levels are normal -risk off agree feeding syndrome (10) Hyponatremia: Code(s): E87.1 - Hypo-osmolality and hyponatremia Status: Acute Assessment and Plan: Hyponatremia could be related to congestive heart failure, hypervolemic hyponatremia -history of seizures -will have Nephrology evaluate the patient Plan DVT prophylaxis: Obtaining CT scan of the brain, if it is negative will start prophylactic Lovenox on 09/04/2025 Stress ulcer prophylaxis: Protonix Nutrition: Will start trickle tube feeds at 10 mL/hour Code Status: Full code Critical Care Time Spent: 81 minutes Discussed with patient's sister, Bere, who is the POA, prior to intubation and explained to her the rationale that patient is having seizures, altered mental status, and difficulty breathing as he was having agonal breaths. She was agreeable for intubation and requested that we keep him a full code. I did explain to her briefly regarding his cardiomyopathy and also new stroke Due to a high probability of clinically significant, life threatening deterioration, the patient required my highest level of preparedness to intervene emergently and I personally spent this critical care time directly and personally managing the patient. This critical care time included obtaining a history; examining the patient; pulse oximetry; ordering and review of studies; arranging urgent treatment with development of a management plan; evaluation of patient's response to treatment; frequent reassessment; and discussions with other providers. It was exclusive of separately billable procedures and treating other patients and teaching time. Please see Assessment and Plan section and the rest of the note for further information on patient assessment and treatment This dictation may have been done utilizing a voice recognition system. Attempts have been made to correct errors. However, there may be uncorrected grammatical, spelling, and recognitions errors present. Transfer Discharge Sum: Med Medications Active and Home Medications: Home Medications lisinopril 20 mg tablet 20 mg feeding tube DAILY 04/10/23 [History Confirmed 08/31/25] hydrocodone 7.5 mg-acetaminophen 325 mg tablet 1 tablet PO Q12H PRN pain 08/30/25 [History Confirmed 08/31/25] levetiracetam 1,000 mg tablet 2,000 mg PO Q12H 08/30/25 [History Confirmed 08/30/25] duloxetine 30 mg capsule,delayed release 60 mg PO DAILY 08/31/25 [History Confirmed 08/31/25] lacosamide 200 mg tablet 200 mg PO Q12H 08/31/25 [History Confirmed 08/31/25] levothyroxine 25 mcg tablet 25 mcg PO DAILY 08/31/25 [History Confirmed 08/31/25] Transfer Discharge Sum: Hosp Hospital Course Hospital course: Simon Barraza is a 60 year old male Patient Condition: Stable Time Spent with Patient Time attestation: Total time spent providing and/or coordinating transfer services: Exam Narrative: General: Currently intubated, sedated, no acute distress HEENT:? Pupils equal and reactive, sclerae is clear, ETT in place Neck:? supple Respiratory:? Coarse breath sounds, no wheezing, adequate air entry Cardiac:? S1 S2 normal, regular rate and rhythm Abdomen:? Soft, nontender, nondistended, hypoactive bowel sound Extremities:? Lower extremity deformities noted, trace edema, palpable pedal pulse Neuro:? Intubated, sedated Skin:? Skin discolorations noted which looked chronic Psych:? Unable to assess at this time Const: General: comfortable and no acute distress Other: , male, frail, chronically ill-appearing HENMT: Face/Nose/Sinus: Normal nares present Mouth: Yes dry mucous membranes Eyes: General: appearance normal, both eyes and all related structures Sclera: sclerae normal Pupils: Equal, round and reactive pupils present EOM: EOMs intact bilaterally Resp: Effort & Inspection: normal respiratory effort Auscultation: clear to auscultation bilaterally Cardio: Rate: regular rate Rhythm: regular rhythm Other: S1-S2 present without murmur, rub, ectopy GI: Other: Abdomen soft, nondistended, nontender. Normoactive bowel sounds in all quadrants. Skin: General skin exam: normal color and no rashes or lesions noted Wounds: no wounds Neuro: Cranial nerves: Yes Equal, round and reactive pupils present Other: A&O x3, poor situational recall. Generalized weakness noted, +4 in all extremities. However trace weakness noted in the left upper extremity compared to the right upper extremity, chronic per patient. +dysarthria and word-finding difficulty. No nystagmus noted, no gaze deviation, no facial palsy. No sensory deficits. Extrem: General: normal to inspection Psych: Other: Fair to poor insight and judgment at present, pleasant. No agitation noted. No restlessness.
== END 2025-09-03 21:55 | disposition short-term general hospital (02) | DRG 64 ==
LOC: ANHED 18:12 → ANHIMU 08-31 06:58 → ANHICU 09-06 10:37 → ANHIMU 09-06 10:37
PROVIDERS: General Practice; Internal Medicine; Internal Medicine Adolescent Medicine; Psychiatry & Neurology Neurology; Student in an Organized Health Care Education/Training Program; Admitting Provider Internal Medicine; Emergency Provider Family Medicine; PCP Physician Assistant; Visit Provider Internal Medicine
DX: I63.9 Cerebral infarction, unspecified (principal); J18.9 Pneumonia, unspecified organism; J96.00 Acute respiratory failure, unspecified whether with hypoxia or hypercapnia; I69.354 Hemiplegia and hemiparesis following cerebral infarction affecting left non-dominant side; E87.1 Hypo-osmolality and hyponatremia; I48.20 Chronic atrial fibrillation, unspecified; I50.22 Chronic systolic (congestive) heart failure; R57.9 Shock, unspecified; E46 Unspecified protein-calorie malnutrition; Z68.1 Body mass index [BMI] 19.9 or less, adult; I11.0 Hypertensive heart disease with heart failure; I25.5 Ischemic cardiomyopathy; I27.20 Pulmonary hypertension, unspecified; G40.909 Epilepsy, unspecified, not intractable, without status epilepticus; J44.9 Chronic obstructive pulmonary disease, unspecified; E78.5 Hyperlipidemia, unspecified; E03.9 Hypothyroidism, unspecified; K70.30 Alcoholic cirrhosis of liver without ascites; K21.9 Gastro-esophageal reflux disease without esophagitis; F10.21 Alcohol dependence, in remission; F17.210 Nicotine dependence, cigarettes, uncomplicated
CPT/HCPCS: 36415; 36569; 36600; 70450; 70496; 70498; 70553; 71045; 78452; 80048; 80053; 80061; 80177; 81001; 82077; 82140; 82306; 82375; 82565; 82607; 82746; 82805; 82948; 83036; 83050; 83605; 83735; 83880; 83921; 84145; 84436; 84439; 84443; 84481; 84484; 85018; 85025; 85027; 85610; 85730; 86038; 86235; 87040; 87070; 87086; 87186; 87205; 92523; 92610; 93005; 93017; 94002; 94003; 94640; 95816; 96365; 96375; 99285; A9270; A9502; A9577; C1751; C8929; C9254; J0612; J0613; J0616; J0696; J1165; J1250; J1630; J1720; J1815; J1836; J1953; J1956; J2003; J2060; J2250; J2270; J2359; J2371; J2470; J2785; J3010; J3360; J3373; J7030; J7040; J7050; P9047; Q9957; Q9967